=== PATIENT | male | born 1975 | race Caucasian/White ===

== ENCOUNTER 2019-08-13 01:03 | Inpatient (IN) | payer OTHER ==
[~2019-08-13] VITALS: Ht 180.3 cm; Wt 82.1 kg
[2019-08-13] VITALS (22 sets, daily range): BP systolic 83–104; BP diastolic 52–83
[2019-08-13] MEDS ORDERED: SODIUM CHLORIDE 0.9% 1000ML 1,000 ML IV SCH (01:15)
[2019-08-13] MEDS ORDERED: CEFEPIME 2 GM/NS 0.9% 100 ML 100 ML IV ONE (01:15)
[2019-08-13] MEDS ORDERED: ACETAMINOPHEN 650 MG SUPP PR ONE (01:15)
[2019-08-13 01:56] LABS: INR 1.2
[2019-08-13 01:57] LABS: PARTIAL THROMBOPLASTIN TIME 32.7 seconds (23.8-35.5)
[2019-08-13] MEDS ORDERED: AZITHROMYCIN 500MG/NS 250 ML 250 ML IV STA (02:01)
[2019-08-13] MEDS ORDERED: VANCOMYCIN 1GM/NS 250 ML 250 ML IV STA (02:01)
[2019-08-13 02:07] LABS: ALANINE AMINOTRANSFERASE 29 IU/L (0-55); ALBUMIN 3.4 g/dL (3.5-5.0); ALBUMIN/GLOBULIN RATIO 0.6 (0.8-2.0); ALKALINE PHOSPHATASE 161 IU/L (40-150); ANION GAP 16.3 mmol/L (8-16); BLOOD UREA NITROGEN 22 mg/dL (7-26); BUN/CREATININE RATIO 23 (6-25); CALCIUM 9.5 mg/dL (8.4-10.2); CARBON DIOXIDE 25 mmol/L (22-29); CHLORIDE 107 mmol/L (98-107); CREATINE KINASE 62 IU/L (30-200); CREATININE, SERUM 0.94 mg/dL (0.72-1.25); EST GLOMERULAR FILTRATION RATE > 60 ML/MIN (60-); GLUCOSE 248 mg/dL (74-118); POTASSIUM 4.3 mmol/L (3.5-5.1); SODIUM 144 mmol/L (136-145)
[2019-08-13 02:08] LABS: ABG HCO3 25 mmol/L (23-28); ABG PCO2 32 mmHg (35-45); ABG PH 7.49 (7.31-7.41)
[2019-08-13 02:10] LABS: BASOPHILS # (AUTO) 0.1 (0.0-0.1); BASOPHILS % 0.6 % (0.0-1.0); HEMOGLOBIN 16.3 g/dL (14.0-18.0); LYMPHOCYTES # (AUTO) 1.6 (1.0-3.2); MEAN CORPUSCULAR HEMOGLOBIN 29.6 pg (28-32); MEAN CORPUSCULAR HGB CONC 32.6 g/dL (31-35); MEAN CORPUSCULAR VOLUME 90.9 fL (81-99); MONOCYTES # (AUTO) 1.2 (0.2-0.8); MONOCYTES % 12.4 % (4.4-11.3); NEUTROPHILS # (AUTO) 6.6 (2.1-6.9); NEUTROPHILS % 69.8 % (38.7-80.0); PLATELET COUNT 180 x10e3/uL (140-360); RED CELL DISTRIBUTION WIDTH 13.1 % (11.7-14.4)
[2019-08-13] MEDS ORDERED: SODIUM CHLORIDE 0.9% 1000ML 1,000 ML IV ONE ×2 (02:15→05:30)
[2019-08-13 02:26] LABS: CREATINE KINASE MB < 1.00 ng/mL (0-4.3)
[2019-08-13] MEDS ORDERED: IBUPROFEN 100 MG/5 ML SUSP PEG ONE (03:00)
[2019-08-13 03:10] LABS: INFLUENZAE A&B ANTIGEN (RAPID) NEGATIVE (NEGATIVE); STREPTOCOCCUS GRP A ANTIGEN NEGATIVE (NEGATIVE)
--- NOTE | 2019-08-13 03:20 | Diagnostic Imaging Report ---
EXAMINATION: CHEST SINGLE (PORTABLE) COMPARISON: None INDICATION: Fever ^fever ^[id number] ^0248 ^Y DISCUSSION: Frontal view of the chest obtained at 0248 hours. HEART AND MEDIASTINUM: The cardiomediastinal silhouette is unremarkable. LINES: Tracheostomy is midline LUNGS: Moderate eventration of the right diaphragm with overlying atelectasis. No pneumonia or pulmonary edema. PLEURA: No pleural effusion or pneumothorax. BONES AND SOFT TISSUES: No focal osseous lesion. The soft tissues are normal. IMPRESSION: No infiltrates. Moderate eventration of the right diaphragm. Signed by: Dr. Nahum Alejo MD on 08/13/2019 3:17 AM
--- NOTE | 2019-08-13 03:23 | NUR ---
intermediate nurse reported to this facility 650 mg tylenol via peg tube were given before transfer. This nurse spent 38 minutes attempting to fix clogged peg tube. peg tube now working successfully. upon fix of peg tube-old tube feeding formula was removed in chunks.
[2019-08-13 03:39] LABS: CLARITY,URINE HAZY (CLEAR); COLOR,URINE AMBER (YELLOW); LEUKOCYTE ESTERASE ,URINE NEGATIVE (NEGATIVE); NITRITE,URINE NEGATIVE (NEGATIVE)
[2019-08-13 03:40] LABS: BACTERIA,URINE FEW /HPF; BILIRUBIN,URINE NEGATIVE (NEGATIVE); EPITHELIAL CELLS,URINE FEW /LPF; KETONES,URINE NEGATIVE (NEGATIVE); PROTEIN,URINE DIPSTICK 2+ (NEGATIVE); URINE UROBILINOGEN 1 mg/dL (0.2 - 1); WBC,URINE (MAN) 0-5 /HPF (0-5)
--- NOTE | 2019-08-13 05:07 | Diagnostic Imaging Report ---
CT chest without enhancement CPT code: 05548 INDICATION: Fever, atelectasis TECHNIQUE: Thin collimation axial images obtained from the thoracic inlet to the level of the diaphragm without intravenous contrast. Dose reduction techniques used: Automated exposure control, adjustment of the mAs and/or kVp according to patient size, standardized low-dose protocol, and/or iterative reconstruction technique. RADIATION DOSE: Total DLP: 536.05 mGy*cm Estimated effective dose: (DLP x 0.015 x size factor) mSv CTDIvol has been reviewed. It is below the limits set by the Radiation Protocol Committee (RPC). COMPARISON: Chest x-ray 08/13/2019. CHEST FINDINGS: Lymph nodes: No enlarged axillary, supraclavicular lymph nodes. Mediastinal lymph nodes are increased in number but measure up to 10 mm. No evidence of enlarged hilar lymph nodes given the lack of intravenous contrast. Thyroid: Visualized portions are normal. Mediastinum: Tracheostomy is in appropriate position. The heart is normal in size. No pericardial effusion. The ascending aorta measures 3.5 cm. The main pulmonary artery measures 2.6 cm. The distal esophagus is distended with air without significant mural thickening. No hiatal hernia. Lungs: Right: Near complete atelectasis of the lower lobe and atelectasis of the lateral segment of the middle lobe with bronchiectasis. The upper lobe contains several groundglass nodular foci. Left: Wispy bands of atelectasis in the inferior lower lobe. No nodules or infiltrates. Airways: Clear. Pleura: No pleural effusion or pleural based mass. Moderate eventration of the right diaphragm. ABDOMEN FINDINGS: Percutaneous gastrostomy is in appropriate position. There are subcentimeter calculi in the upper pole the right kidney. No soft tissue mass or lymphadenopathy. Bones: Compression fractures of L1 and T7 of approximately 50%. Mild superior endplate compression of T5. The spinal canal is patent. There are multiple healed left rib fractures. Soft tissues: Unremarkable. IMPRESSION: 1. Tiny groundglass nodular opacities in the right upper lobe may represent bronchopneumonia. 2. Moderate eventration of the right diaphragm with atelectasis of the right middle lobe and lower lobe. 3. Small foci of atelectasis in the left lower lobe. 4. Appropriate position of medical devices. 5. Tiny nonobstructing right intrarenal calculi. Signed by: Dr. Nahum Alejo MD on 08/13/2019 5:04 AM
[2019-08-13] MEDS ORDERED: DEXTROSE 50% SYRINGE 50 ML IV PRN (05:30)
[2019-08-13] MEDS ORDERED: SENNA LAXATIVE8.6 MG PEG (05:36)
[2019-08-13] MEDS ORDERED: SCOPOLAMINE1 EACH TOP (05:36)
[2019-08-13] MEDS ORDERED: MULTIPLE VITAM1 EAC1 PEG (05:36)
[2019-08-13] MEDS ORDERED: POLYETHYLENE GL17 GM PO (05:36)
[2019-08-13] MEDS ORDERED: B-1100 M1 PEG (05:36)
[2019-08-13] MEDS ORDERED: XOPENEX0.63 MG/3 INH (05:36)
[2019-08-13] MEDS ORDERED: ACETAMINOPHEN325 M1 PO (05:36)
[2019-08-13] MEDS ORDERED: ALBUTEROL2.5 MG/3 M INH (05:40)
[2019-08-13] MEDS ORDERED: CLONAZEPAM1 MG PEG (05:44)
[2019-08-13] MEDS ORDERED: DEBROX15 ML EACH EAR (05:44)
[2019-08-13] MEDS ORDERED: BACLOFEN10 MG PO (05:44)
[2019-08-13] MEDS ORDERED: EFFER-K 20 MEQ20 MEQ PEG (05:47)
[2019-08-13] MEDS ORDERED: FOLIC ACID0.8 M1 PEG (05:47)
[2019-08-13] MEDS ORDERED: KEPPRA PEG (05:55)
[2019-08-13] MEDS ORDERED: albuterol sulfate INH (05:55)
[2019-08-13] MEDS ORDERED: NIZORAL A-D125 M1 TOP (05:55)
[2019-08-13] MEDS ORDERED: CEFEPIME HCL 2 GM/SOD CHL 0.9% 100 ML BAG IV SCH ×2 (06:00→09:30)
[2019-08-13] MEDS: ACETAMINOPHEN 650 MG SUPP PR PRN (06:15)
[2019-08-13] MEDS: CLONAZEPAM 1 MG TAB PEG SCH ×3 (06:31→21:29)
[2019-08-13 07:29] LABS: CREATINE KINASE MB 0.6 ng/mL (0-5.0)
[2019-08-13] MEDS: INSULIN REGULAR, HUMAN 100 UNIT/1 ML 3ML VIAL SQ SCH ×4 (07:30→20:21)
[2019-08-13] MEDS: AZITHROMYCIN 500MG/SOD CHL 0.9% 250ML BAG IV SCH (08:26)
[2019-08-13] MEDS: LEVETIRACETAM ORAL SOLUTION 500 MG/5 ML SOLN PEG SCH ×2 (08:26→16:57)
[2019-08-13] MEDS ORDERED: KEPPRA 1000 MG PEG SCH (09:00)
[2019-08-13] MEDS: CEFEPIME 2 GM/NS 0.9% 100 ML 100 ML IV SCH ×3 (10:40→21:29)
[2019-08-13] MEDS ORDERED: ALBUTEROL SULFATE HFA 8GM INHALATION AEROSOL INH PRN (10:45)
--- NOTE | 2019-08-13 11:15 | Consultation ---
DATE OF CONSULTATION: Pulmonary Consultation HISTORY OF PRESENT ILLNESS: Patient of Dr. Bob Bethea. [facility]. Unfortunate 44-year-old gentleman with a history of diabetes mellitus, history of failed suicide attempt with anoxic encephalopathy, persistent vegetative state; admitted from [facility] with fever and elevated heart rate. He has a trach and a PEG. Heel wounds. Apparently, have a persistent vegetative state, but is somewhat reactive. He has contractures of the lower extremities and heel wounds. Diminished breath sounds, right chest. Heart regular rhythm. A tracheostomy is in place. He is able to squeeze his hand, but is in a decorticate posture. Contracted legs. IMPRESSION: 1. Possible COVID-19. 2. Elevated right hemidiaphragm, presumably related to nerve damage secondary to standing attempt. MD KAYLI Carrasco/MODL /[id number]
--- NOTE | 2019-08-13 11:15 | Consultation ---
DATE OF CONSULTATION: CONTINUATION: The patient's temperature on admission was 106.9. He received a dose of ibuprofen in the emergency department, was now fallen to 100.5. IMPRESSION: Probable COVID-19 infection. Bacterial cultures are pending. Viral PCR studies are pending. Hemoglobin is 16, 17% lymphocytes, 12.5% monocytes. Antibacterial agents have been started by Infectious Disease Service. The patient has a full code status. We will continue supplemental oxygen via trach mask. Attempt to avoid aerosolization. Mucomyst and bag and suction as needed. HME filter available, isolation room as needed. MD KAYLI Carrasco/MODL /[id number]
[2019-08-13] MEDS ORDERED: LEVALBUTEROL HCL SOLN NEBU 0.63 MG/3 ML NEB INH PRN (12:00)
[2019-08-13] MEDS ORDERED: ACETAMINOPHEN 325 MG TAB PO PRN (12:00)
[2019-08-13] MEDS ORDERED: SCOPOLAMINE 1.5 MG PATCH TOP SCH (12:00)
[2019-08-13] MEDS ORDERED: SODIUM CHLORIDE 0.9% 1000ML 1,000 ML ONE (12:43)
[2019-08-13] MEDS ORDERED: ACETYLCYSTEINE 200 MG/ML 4ML VIAL INH PRN (13:00)
[2019-08-13] MEDS ORDERED: ACETYLCYSTEINE 200 MG/ML 4ML VIAL INH SCH (13:00)
[2019-08-13] MEDS ORDERED: SODIUM CHLORIDE 0.9% 1000ML 1,000 ML IV PRN (13:00)
[2019-08-13] MEDS ORDERED: KETOCONAZOLE 2% CREAM/15 GM TUBE TOP SCH (13:30)
[2019-08-13] MEDS ORDERED: BACLOFEN 10 MG TAB PO SCH (14:00)
[2019-08-13] MEDS ORDERED: ALBUTEROL SULF 0.083% NEB SOLN 3 ML NEB INH SCH (15:00)
[2019-08-13] MEDS: ALBUTEROL SULFATE HFA 8GM INHALATION AEROSOL INH SCH ×2 (15:00→20:30)
[2019-08-13] MEDS ORDERED: ALBUTEROL SULF 0.083% NEB SOLN 3 ML NEB NEB PRN (15:00)
--- NOTE | 2019-08-13 15:31 | NUR ---
Nutrition Intervention Note RD Recommendation(s) for Physician: -Rec changing continuous TF to Glucerna 1.5 @55mL/hr, providing 1980kcal, 109g protein, 1002mL water. -Rec 50mL water flushes q 4hr; additional water per MD -Check GI tolerance and daily weight Plan of Care: RD following, monitoring for tolerance and adequacy, TF recommendation Nutrition reason for involvement: RN consult TF RD Assessment (08/12) Chart reviewed. 44yo M, who was [facility] for fever and elevated heart rate. Pt has a trach and PEG, in persistent vegetative state. Pt has contractures of the lower extremities and heel wounds. No family on bedside. Currently on droplet isolation for possible COVID-19. No family is present. No previous visit to [facility]. Communicated TF recommendation with HUNTER Pots. Will continue to monitor and follow. Principal Problems/Diagnoses: Possible COVID-19 PMH: diabetes mellitus, history of failed suicide attempt with anoxic encephalopathy, persistent vegetative state I/O: N/A IVF: NaCl GI: +PEG Skin: intact Labs: (08/12) unremarkable Meds: cefepime, azithromycin, NaCl, ibuprofen, vancomycin, NaCl Ht: 71in Wt: 180lb BMI: 25.1kg/m2 IBW: 172lb +/- 10% Malnutrition Evaluation (08/12) Unable to assess at this time Nutrition Prescription (Diet Order): Vital HP @60ml/hr Estimated Nutritional Needs: Calories: 1640 2050kcal(20-25kcal/kg/d) Weight used: CBW Protein: 82 123g (1-1.5g/kg/d) Weight used: CBW Diet Adequacy: Not meeting calorie needs, Not meeting protein needs Tolerance: Tolerance pending Diet Education Needs Assessment: Diet education not indicated. Nutrition Care Level: Moderate Nutrition Diagnosis: Inadequate oral intake related to persistent vegetative state as evidenced by pt required EN through PEG. Goal: Patient will meet 75-100% of estimated needs by follow up Progress: N/A Interventions: Composition, Rate, Route Monitoring/Evaluation: Total energy intake, Total protein intake, Formula/Solution, Weight change Signed: Ioana Shelby, MS, RD, LD
--- NOTE | 2019-08-13 16:06 | History and Physical ---
HISTORY OF PRESENT ILLNESS: A 44-year-old male, who had a past medical history positive for anoxic brain injury, chronically on the ventilator, came from the [facility] because of fever. He also has a history of diabetes. He is a possible patient suspicion to have COVID-19. The patient is right now in the ICU, cannot provide any information because he is on the vent. PHYSICAL EXAMINATION: HEART: Showed regular rhythm. Normal S1, S2 sound. LUNGS: Clear bilaterally. ABDOMEN: Soft. EXTREMITIES: Show contraction upper and lower extremities. VITAL SIGNS: Temperature 99.9, heart rate 78 per minute, respiratory rate 20 per minute, and blood pressure 84/58. PAST MEDICAL HISTORY: Significant for chronic respiratory failure, acute at this stage, and encephalopathy after suicide attempt. LABORATORY DATA: On the blood work, we have CMP; sodium 144, potassium 4.3, chloride 107, CO2 of 25, BUN 22, creatinine 0.94, glucose 248, lactic acid is 1.0 right now. AST 25, ALT 29, alkaline phosphatase 161. Creatine kinase 62. Troponin 0.05. Total protein 9.0, albumin 3.4, globulin 5.6. Urinalysis came back clear, except for high protein. PT 16.0, INR 1.0, PTT 32.7. The coronavirus, metapneumovirus PCR, Mycoplasma pneumoniae, parainfluenza 1, 2, 3, 4, RSV, rhinovirus, and group B Streptococcus screen has been done, reviewed but his Streptococcus has been negative. Chest CT showed that the patient has a tiny ground-glass nodular opacities in the right upper lobe, may represent bronchopneumonia, moderate eventration, right hemidiaphragm with atelectasis in the right middle lobe and lower lobe, small focus of atelectasis in left lower lobe appropriate position renal calculi. IMPRESSION: 1. Chronic respiratory failure. 2. Fever. 3. Lower pneumonia. 4. Uncontrolled diabetes mellitus type 2. 5. Anoxic encephalopathy. 6. Hypotension. 7. COVID-19 suspicious. Came in with IV normal saline bolus because of hypotension. Continue ventilator support. Continue cefepime 2 g IV q.8 hours. Continue IV fluids. Continue vancomycin 1 g IV once a day. Continue Tylenol 650 mg q.4 hours as needed for pain or fever. Continue with Mucomyst 600 mg inhalation q.6 hours as needed for shortness of breath. Albuterol metered-dose inhaler two puffs three times a day and q.6 hours. Continue baclofen 10 mg q.8 hours, which we are going to stop actually because of hypotension, clonazepam 1 mg q.8 hours as needed, folic acid 1 mg daily, heparin 5000 units subcutaneous twice a day for DVT prophylaxis. Continue monitoring blood sugar before meals and at bedtime. Continue Xopenex q.8 hours as needed for shortness of breath. Continue Keppra 1000 mg twice a day . The patient is going to discontinue Senokot one tablet daily, thiamine one tablet daily, vancomycin 1 g IV once a day, Zithromax 500 mg IV daily, minoxidil one application topically on Thursday, discussed with the nurse. Consultation reports have been reviewed. Labs have been reviewed. Chest x-ray has been reviewed. Time spent around 50 minutes. MD MYRON Gonzales/ROB /[id number]
--- NOTE | 2019-08-13 18:41 | Consultation ---
DATE OF CONSULTATION: REASON FOR CONSULTATION: Pneumonia. HISTORY OF PRESENT ILLNESS: This is a 44-year-old gentleman who is coming to us from the [facility] skilled care facility. The patient who is a resident have history of diabetes mellitus, history of suicide attempt, resulted in failing, but had anoxic encephalopathy. He is in a vegetative state, status post PEG, status post trach. [facility], but he is presenting to us with fever and chills and concern if he aspirated, but since we are in the mid of outbreak for COVID-19, this was sent also. The patient who does not provide any further information, history was taken mainly from the chart. His influenza A and B was negative. Strep was negative, thus was available for us right now. His blood cultures still pending. LABORATORY DATA: Reviewed. His chest x-ray reviewed. His white count 9.4, hemoglobin 5, platelet 180. His sodium 144, potassium 4.3, creatinine 0.94. The patient when I see the consult, we will put him on vancomycin and cefepime, but he was also started on azithromycin. REVIEW OF SYSTEMS: Could not be obtained. PHYSICAL EXAMINATION: GENERAL: The patient is noncommunicative. VITAL SIGNS: Stable. Temperature 100.4. When he first came, had a temperature 106.9. HEENT: Normocephalic. CHEST: Few rhonchi. COR: S1 and S2. No S3, S4, or murmur. ABDOMEN: Soft. Bowel sounds present. No tenderness. EXTREMITIES: No edema. IMPRESSION: I think the patient have aspiration pneumonia, sepsis, present on admission. I would recommend to continue vancomycin and cefepime for aspiration pneumonia, healthcare associated. Follow vancomycin trough. Check CBC, Chem panel. COVID-19 was ordered. Unfortunately it is taking us 48-72 hours to get results, sometimes with longer. Discussed with the medical team. Answered all the questions. We will follow. MD DAVID Mike/ROB /[id number]
[2019-08-13] MEDS: HEPARIN SOD (PORCINE) 5,000 UNIT/ML VIAL SC SCH (20:18)
[2019-08-13] MEDS: FOLIC ACID 1 MG TAB PEG SCH (20:18)
[2019-08-14] VITALS (25 sets, daily range): BP systolic 83–128; BP diastolic 50–95
[2019-08-14] MEDS: VANCOMYCIN 1GM/NS 250 ML 250 ML IV SCH (01:37)
[2019-08-14] MEDS ORDERED: VANCOMYCIN HCL 1GM/NS 250 ML BAG IV SCH (02:00)
[2019-08-14 05:21] LABS: BASOPHILS % 0.3 % (0.0-1.0); EOSINOPHILS # (AUTO) 0.1 (0.0-0.4); EOSINOPHILS % 0.7 % (0.0-6.0); HEMATOCRIT 31.1 % (38.2-49.6); HEMOGLOBIN 9.5 g/dL (14.0-18.0); LYMPHOCYTES # (AUTO) 1.3 (1.0-3.2); LYMPHOCYTES % 18.7 % (18.0-39.1); MEAN CORPUSCULAR HEMOGLOBIN 29.1 pg (28-32); MEAN CORPUSCULAR HGB CONC 30.5 g/dL (31-35); MEAN CORPUSCULAR VOLUME 95.4 fL (81-99); MONOCYTES # (AUTO) 0.5 (0.2-0.8); MONOCYTES % 6.7 % (4.4-11.3); NEUTROPHILS # (AUTO) 5.1 (2.1-6.9); NEUTROPHILS % 73.3 % (38.7-80.0); PLATELET COUNT 92 x10e3/uL (140-360); RED BLOOD COUNT 3.26 x10e6/uL (4.3-5.7); RED CELL DISTRIBUTION WIDTH 13.2 % (11.7-14.4)
[2019-08-14] MEDS: CEFEPIME 2 GM/NS 0.9% 100 ML 100 ML IV SCH ×3 (05:21→21:22)
[2019-08-14] MEDS: CLONAZEPAM 1 MG TAB PEG SCH ×3 (05:21→21:22)
[2019-08-14 05:35] LABS: INR 1.19; PROTHROMBIN TIME 15.9 seconds (11.9-14.5)
[2019-08-14 05:42] LABS: ALANINE AMINOTRANSFERASE 17 IU/L (0-55); ALBUMIN 2.5 g/dL (3.5-5.0); ALBUMIN/GLOBULIN RATIO 0.7 (0.8-2.0); ALKALINE PHOSPHATASE 108 IU/L (40-150); ANION GAP 8.5 mmol/L (8-16); BLOOD UREA NITROGEN 18 mg/dL (7-26); BUN/CREATININE RATIO 34 (6-25); CALCIUM 8.5 mg/dL (8.4-10.2); CARBON DIOXIDE 27 mmol/L (22-29); CHLORIDE 115 mmol/L (98-107); CREATININE, SERUM 0.53 mg/dL (0.72-1.25); EST GLOMERULAR FILTRATION RATE > 60 ML/MIN (60-); GLUCOSE 101 mg/dL (74-118); POTASSIUM 3.5 mmol/L (3.5-5.1); SODIUM 147 mmol/L (136-145)
[2019-08-14] MEDS: INSULIN REGULAR, HUMAN 100 UNIT/1 ML 3ML VIAL SQ SCH ×4 (07:12→21:00)
[2019-08-14] MEDS: ALBUTEROL SULFATE HFA 8GM INHALATION AEROSOL INH SCH ×3 (09:10→20:05)
[2019-08-14] MEDS: LEVETIRACETAM ORAL SOLUTION 500 MG/5 ML SOLN PEG SCH ×2 (09:43→16:22)
[2019-08-14] MEDS: MULTIVITAMINS 5 ML LIQUID PEG SCH (09:43)
[2019-08-14] MEDS: POLYETHYLENE GLYCOL 3350 17 GM PACK PO SCH (09:44)
[2019-08-14] MEDS: SENNOSIDES 8.6 MG TAB PEG SCH (09:44)
[2019-08-14] MEDS: AZITHROMYCIN 500MG/SOD CHL 0.9% 250ML BAG IV SCH (09:44)
[2019-08-14] MEDS: THIAMINE HCL 100 MG TAB PEG SCH (09:44)
[2019-08-14] MEDS: HEPARIN SOD (PORCINE) 5,000 UNIT/ML VIAL SC SCH ×2 (09:47→21:15)
--- NOTE | 2019-08-14 10:37 | Diagnostic Imaging Report ---
EXAMINATION: CHEST SINGLE (PORTABLE) INDICATION: ^FEVER ^[id number] ^0930 COMPARISON: Chest x-ray and CT dated 08/13/2019 FINDINGS: AP view TUBES and LINES: None. LUNGS: Limited by body habitus and low lung volumes. Mild vascular congestion, accentuated by low lung volumes. Mild right lower lung field atelectasis. PLEURA: No significant pleural effusion or pneumothorax. HEART AND MEDIASTINUM: The cardiomediastinal silhouette is unremarkable. BONES AND SOFT TISSUES: No acute osseous lesion. Again seen elevated right hemidiaphragm. UPPER ABDOMEN: No free air under the diaphragm. IMPRESSION: Limited study. No significant interval change from prior exam. Elevated right hemidiaphragm with mild adjacent atelectasis. Underlying/developing pneumonia cannot be entirely excluded in the appropriate clinical context. Signed by: Dr. Chavo Cat MD on 08/14/2019 10:34 AM
--- NOTE | 2019-08-14 14:09 | Progress Note ---
DATE: Internal Medicine Progress Note SUBJECTIVE: The patient is on the ventilator. OBJECTIVE: VITAL SIGNS: Temperature 99.3, heart rate 86 per minute, respiratory rate 20 per minute, blood pressure 103/68, and oxygen saturation is 97%. He is using trach collar. LABORATORY DATA: On the blood work, we have a hemoglobin 9.1, hematocrit 31.1, and platelet count 92,000. On the BMP; sodium 147, potassium 3.5, chloride 115, carbon dioxide 27, BUN 18, creatinine 0.53, glucose is 101, calcium 8.5, total bilirubin 0.5, AST 18, ALT 17, alkaline phosphatase 108, creatine kinase 64, CK-MB 0.60, troponin 0.018, total protein 5.9, and albumin 2.5. Urinalysis pretty much negative except for some protein. Coagulation came back with PT 15.9 and INR 1.19. All the valid serology has been done. COVID-19 still pending. Influenza A and B negative and group A Streptococcus screen is negative also. On the microbiology part, blood cultures have been negative for 24 hours. Throat cultures came back with usual respiratory efra. Urine culture also has been done and it showed no growth for 18-24 hours. We have a chest CT report, which showed tiny ground-glass noted opacity in the right upper lobe might represent bronchopneumonia, moderate eventration in the right hemidiaphragm with atelectasis of the right middle lobe and lower lobe, small focus of atelectasis in the left lower lobe, appropriate position of the medical devices, and tiny nonobstructing right intrarenal calculi. FINAL IMPRESSION: 1. Current respiratory failure. 2. Lower pneumonia. 3. Uncontrolled diabetes mellitus type 2. 4. Anoxic encephalopathy. 5. Fever. 6. Possible COVID-19 patient. 7. Hypotension. PLAN OF TREATMENT: We are going to continue currently oxygen support. Continue cefepime 2 g IV every 8 hours. Continue with vancomycin 1 g IV once a day and Tylenol 650 mg every 4 hours as needed for pain or fever. He is taking also acetylcysteine 600 mg inhalation every 6 hours p.r.n. for shortness of breath. Albuterol two puffs every 8 hours. Continue with clonazepam 1 mg every 8 hours by the PEG tube. Continue folic acid 1 mg daily. Continue heparin 5000 units subcutaneously twice a day for DVT prophylaxis. Continue monitoring blood sugar every 6 hours. Continue Nizoral one application on Thursday. Keppra 1000 mg by the PEG tube twice a day. Multivitamin one tablet daily. Continue MiraLAX 17 g daily for constipation, Senokot daily, thiamine 100 mg daily, vancomycin 1 g IV once a day, and Zithromax 500 mg IV daily. [employer] reports have been reviewed. As I said, we are going to wait for COVID-19 to see if the patient has it, but in the meantime, he is in Respiratory and contact isolation. MD MYRON Gonzales/ROB /[id number]
--- NOTE | 2019-08-14 17:45 | Progress Note ---
DATE: SUBJECTIVE: Mr. Arias still remains in intensive care unit. Noncommunicative. PHYSICAL EXAMINATION: VITAL SIGNS: His vitals are stable. HEENT: Not icteric. NECK: Supple. CHEST: Few crackles. Coarse. ABDOMEN: Soft. Bowel sounds present. EXTREMITIES: No edema. IMPRESSION: 1. Aspiration pneumonia, clinically better. Concern about COVID-19 since we are in the middle of the outbreak. 2. Chronic respiratory failure, skilled care facility resident. 3. Diabetes mellitus. 4. Anoxic encephalopathy. 5. Hypertension. Currently on cefepime and vancomycin, day #2. All cultures are still pending. White count is 7. Influenza is negative. Continue with supportive care for time being. We will follow. MD DAVID Mike/MODL /[id number]
[2019-08-14] MEDS: FOLIC ACID 1 MG TAB PEG SCH (21:14)
[2019-08-15] VITALS (15 sets, daily range): BP systolic 107–133; BP diastolic 63–84
[2019-08-15] MEDS: ACETAMINOPHEN 650 MG SUPP PR PRN (00:35)
[2019-08-15] MEDS: VANCOMYCIN 1GM/NS 250 ML 250 ML IV SCH (01:43)
[2019-08-15] MEDS ORDERED: SODIUM CHLORIDE 0.9% 250ML 250 ML ONE (02:18)
[2019-08-15 05:36] LABS: ANION GAP 12.3 mmol/L (8-16); BLOOD UREA NITROGEN 11 mg/dL (7-26); BUN/CREATININE RATIO 20 (6-25); CALCIUM 8.5 mg/dL (8.4-10.2); CARBON DIOXIDE 26 mmol/L (22-29); CHLORIDE 110 mmol/L (98-107); CREATININE, SERUM 0.54 mg/dL (0.72-1.25); EST GLOMERULAR FILTRATION RATE > 60 ML/MIN (60-); GLUCOSE 88 mg/dL (74-118); POTASSIUM 3.3 mmol/L (3.5-5.1); SODIUM 145 mmol/L (136-145)
[2019-08-15] MEDS: CLONAZEPAM 1 MG TAB PEG SCH (05:44)
[2019-08-15] MEDS: CEFEPIME 2 GM/NS 0.9% 100 ML 100 ML IV SCH ×2 (05:44→14:00)
[2019-08-15] MEDS ORDERED: POTASSIUM CHLORIDE 20MEQ/15ML UDC NG SCH (06:45)
[2019-08-15] MEDS: INSULIN REGULAR, HUMAN 100 UNIT/1 ML 3ML VIAL SQ SCH ×2 (07:30→11:30)
[2019-08-15] MEDS: ALBUTEROL SULFATE HFA 8GM INHALATION AEROSOL INH SCH (08:00)
[2019-08-15] MEDS: HEPARIN SOD (PORCINE) 5,000 UNIT/ML VIAL SC SCH (08:35)
[2019-08-15] MEDS: LEVETIRACETAM ORAL SOLUTION 500 MG/5 ML SOLN PEG SCH (08:36)
[2019-08-15] MEDS: AZITHROMYCIN 500MG/SOD CHL 0.9% 250ML BAG IV SCH (08:36)
[2019-08-15] MEDS: POLYETHYLENE GLYCOL 3350 17 GM PACK PO SCH (08:37)
[2019-08-15] MEDS: SENNOSIDES 8.6 MG TAB PEG SCH (08:37)
[2019-08-15] MEDS: MULTIVITAMINS 5 ML LIQUID PEG SCH (08:37)
[2019-08-15] MEDS: THIAMINE HCL 100 MG TAB PEG SCH (08:37)
--- NOTE | 2019-08-15 11:23 | NUR ---
FAXED CLINIC[facility] TO [facility], PT LIVES THERE SHOULD RETURN TODAY, COMPLETED PACKET WITH RTF AND COVID ASSESSMENT, PUT IN ENVELOPE FOR TRANSFER COMPLETION.
--- NOTE | 2019-08-15 11:30 | NUR ---
HALFWAY FACILITY DISCHARGE INFORMATION PATIENT HAS BEEN ACCEPTED TO: NAME: [facility] ADDRESS: [id number] [facility] ACCEPTING RUFFLER: MICHAEL HOFFMANN MD: MALLORY ROOM: [address] NURSE CALL REPORT TO: [phone] IMM SIGNED AND OBTAINED (if applicable): NA THE FOLLOWING DOCUMENTS MUST ACCOMPANY PATIENT FOR TRANSFER: COPIED CHART: PACKET
--- NOTE | 2019-08-15 12:42 | NUR ---
WOUND CARE CONSULT FOR 44 YO MALE HX OF PNEAU ,HEAD TRAMA , CONTRACTURES OF BILATERAL LE RYNE 9 ON STRICT PUP STATUS AND INTERVENTIONS AND ALTERNATING PRESSURE MATTRESS LABS: WBC-7.01 HGB_9.5 GLUCOSE-88 SKIN ASSESSMENT COMPLETE PATIENT PRESENTS WITH BILATERAL HEEL DTI AREAS RELATED TO LEG CONTRACTURES AND PRESSURE CREATED RIGHT HEEL DTI MEASURES 3CM X3CM DARK BLUISH COLOR AND BLISTER LEFT HEEL DTI MEASURES 3CM X3.5CM DARK BLUISH BLISTER RECOMMENDATIONS: NURSING TO CONTINUE TO MAINTAIN STRICT PUP STATUS AND INTERVENTIONS AND ALTERNATING PRESSURE MATTRESS NURSING TO CONTINUE TO ASSIST PATIENT NEEDED WITH MEALS AND NUTRITIONAL SUPPLEMENTS TO ENSURE PROPER REQUIREMENTS FOR HEALING NURSING TO CONTINUE TO OFFLOAD FEET AND HEELS NEEDED WITH PILLOW SUSPENSION WHEN IN BED NURSING TO CLEAN BILATERAL HEELS DTI BLISTER WITH NORMAL SALINE DAILY AND APPLY VENELEX OINTMENT AND ALLEVYN FOAM DRESSING Addendum: 08/15/19 at 1252 by Robert Garnett RN Amended: Links added.
--- NOTE | 2019-08-15 14:00 | NUR ---
FEMORAL AND 20G TO LFA DCD AT THIS TIME. PT TOLERATED WELL
[2019-08-16] MEDS ORDERED: BALSAM PERU/CASTOR OIL 60 GM OINT...G. TP SCH (09:00)
--- NOTE | 2019-08-16 09:45 | Progress Note ---
DATE: SUBJECTIVE: Mr. Arias clinically seems to be doing better. He is alert, noncommunicative. OBJECTIVE: VITAL SIGNS: Stable, currently afebrile. HEENT: Not icteric. NECK: Supple. CHEST: Few crackles. COR: S1, S2. ABDOMEN: Soft. IMPRESSION: Aspiration pneumonia clinically better, COVID-19 came back negative. From Infectious Disease point of view, the patient could be discharged back to skilled care facility since he has chronic vent to finish 5 days of antibiotic. MD DAVID Mike/DOROTHYL /[id number]
--- NOTE | 2019-09-20 00:52 | Discharge Summary ---
CHIEF COMPLAINT: Fever. FINAL DIAGNOSES: 1. Respiratory failure. 2. Right lower lobe atelectasis. 3. . DISPOSITION: Discharge back to the [facility]. HOSPITAL COURSE: A 44-year-old male with history for hypoxic brain injury, chronic vent, stayed at [facility]. He was brought to the ER due to fever. He is also known to have a history of diabetes. There is suspicious for evidence to be COVID-19. Regarding his fever with his vent status, the patient admitted to ICU for care and the concern for chronic respiratory failure, fever, lobar pneumonia, uncontrolled diabetes type 2, hypoxic encephalopathy, hypotension, COVID-19 suspicion. With admission, the patient was undergoing pulmonary evaluation by Dr. Albarran, regarding the need for continued vent management as well as suspicious possible COVID-19 and with his evaluation of the patient, his impression was possible COVID-19, elevated right hemidiaphragm, presumably related to nerve damage secondary to standing attempt. Infectious Disease follow up with Dr. Correia regarding pneumonia. With his evaluation, he feels that the patient have aspiration pneumonia, sepsis present on admission. Recommend continuation of current antibiotics. Awaiting for COVID-19 results. From the ER, the patient was in ICU for further continuation of vent support and was on tube feedings for nutrition. His daily medications were continuing. He is also being placed on cefepime as well as vancomycin. His vital signs are being monitored further. His lab studies were being monitored well. Had a COVID study, results are still pending. Care was continuing. Concerns are now being addressed for aspiration pneumonia. Vent support was continued. Respiratory care was continued. His COVID-19 did return back negative. The patient was stabilized and felt to be transferred back to the [facility] for continuation of care. IMAGING: Chest x-ray finding shows no infiltrate. Moderate eventration of the right hemidiaphragm. CT of chest shows tiny ground-glass nodular opacity of right upper lobe, may represent bronchopneumonia. Moderate eventration of the right diaphragm with atelectasis of the right middle lobe and lower lobe. Small foci of atelectasis in the left lower lobe. Tiny nonobstructing right intrarenal calculi. Final chest x-ray was a limited study. No significant interval change today to prior exam. Underlying/developing pneumonia cannot be entirely excluded in the appropriate clinical contest. Cultures; urine, throat, and blood all 3 negative. LABORATORY STUDIES: CBC was normal. White blood cell count initial H and H were 13.3 and 50.0. As the patient became better hydrated with the stay, followup H and H had trended down to, not only trended but it dropped to 9.5 and 31.1. Influenza A and B studies were negative. Drug screen was negative. Coronavirus studies were negative. Urinalysis was showing specific gravity 1.030, 2+ protein. Chemistry shows initial electrolyte studies to be normal. Kidney functions normal. Glucose 248. Followup chemistry shows electrolytes continuing to be stable. Kidney functions are stable. Final glucose 112, final potassium was 3.3. As mentioned, the patient was stabilized, with transfer back to the [facility] on vent before. The patient is bed-bound. Continue on G-tube feeding as well. Activity level, bed-bound. The patient will continue his medications. I will be following the patient's care at that location on a daily basis. Staff will be contacting me as needed. Dictated by BARBY Nolasco Bob Bethea MD CC/ROB /[id number]
== END 2019-08-15 14:30 | DRG 178 ==
LOC: ER 01:03 → ERHOLD 05:31 → ICU 06:41
DX: J69.0 Pneumonitis due to inhalation of food and vomit (principal); Z99.11 Dependence on respirator [ventilator] status; G93.1 Anoxic brain damage, not elsewhere classified; J96.10 Chronic respiratory failure, unspecified whether with hypoxia or hypercapnia; G93.40 Encephalopathy, unspecified; Z87.820 Personal history of traumatic brain injury; J98.6 Disorders of diaphragm; M62.462 Contracture of muscle, left lower leg; M62.461 Contracture of muscle, right lower leg; L89.626 Pressure-induced deep tissue damage of left heel; L89.616 Pressure-induced deep tissue damage of right heel; Z93.1 Gastrostomy status; I10 Essential (primary) hypertension; Z91.5 Personal history of self-harm
CPT/HCPCS: 36415; 36600; 51700; 71045; 71250; 80048; 80053; 81001; 82550; 82553; 82805; 82948; 83518; 83605; 84484; 85025; 85610; 85730; 87040; 87070; 87086; 87400; 87633; 87635; 93005; 94664; 99251; 99284; J0456; J1644; J1817; J3370; J3411; J7030; J7050

== ENCOUNTER 2019-10-13 08:46 | Emergency (ER) | payer MEDICARE, OTHER ==
[~2019-10-13] VITALS: Ht 180.3 cm; Wt 82.1 kg
[~2019-10-13 08:46] MED LIST: ACETAMINOPHEN325 M1 PO; ALBUTEROL2.5 MG/3 M INH; B-1100 M1 PEG; BACLOFEN10 MG PO; CLONAZEPAM1 MG PEG; DEBROX15 ML EACH EAR; EFFER-K 20 MEQ20 MEQ PEG; FOLIC ACID0.8 M1 PEG; KEPPRA PEG; MULTIPLE VITAM1 EAC1 PEG; NIZORAL A-D125 M1 TOP; POLYETHYLENE GL17 GM PO; SCOPOLAMINE1 EACH TOP; SENNA LAXATIVE8.6 MG PEG; XOPENEX0.63 MG/3 INH; albuterol sulfate INH
[2019-10-13] MEDS ORDERED: DIATRIZOATE MEGL/DIATRIZOA SOD 30 ML BTL PO ONE (09:36)
--- NOTE | 2019-10-13 09:36 | Emergency Department Note ---
History of Present Illnes History of Present Illness Chief Complaint: Abdominal Complaints History of Present Illness This is a 44 year old male arrived to the ER by EMS secondary to G- tube dislodgment. 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 Any updates have been documented here. 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 Physical Exam Related Data Allergies: Coded Allergies: No Known Drug Allergies (Verified Allergy, Unknown, 08/13/19) Triage Vital Signs Vital Signs Date Time Temp Pulse Resp B/P (MAP) Pulse Ox O2 Delivery O2 Flow Rate FiO2 10/13/19 08:47 97.5 78 18 156/81 95 Vital signs reviewed: Yes Physical Exam CONSTITUTIONAL Constitutional: other (contracted otherwise well-nourished male) HENT HENT: normocephalic HENT L/R: left TM normal, right TM normal EYES Eyes: PERRL, conjunctivae normal NECK PULMONARY Pulmonary: breath sounds normal CARDIOVASCULAR Cardiovascular: regular rhythm GASTROINTESTINAL Abdominal: soft, other (stoma noted, no superimposed cellulitis) GENITOURINARY SKIN Skin: dry MUSCULOSKELETAL Musculoskeletal: other (contracted bilateral upper and lower extremities); edema NEUROLOGICAL Neurological: other (spinous to painful stimuli, incomprehensible sounds noted) PSYCHOLOGICAL Critical Care Time Subsequent provider I assumed direction of critical care for this patient from another provider of my specialty. Assessment & Plan Reassessment Reassessment 44-year-old male by the ED with dislodged G-tube. G-tube replaced at bedside with 18 Azeri, confirmation noted with Gastrografin. Patient stable for t ransfer back to senior care. Assessment & Plan Final Impression: (1) UNSPECIFIED ABDOMINAL PAIN Assessment & Plan PEG tube replaced, confirmation noted, return back senior care Last Vital Signs Date Time Temp Pulse Resp B/P (MAP) Pulse Ox O2 Delivery O2 Flow Rate FiO2 10/13/19 08:47 97.5 78 18 156/81 95 Home Meds Reported Medications [albuterol sulfate] No Conflict Check, 0.083 % INH Q4H PRN for SHORTNESS OF BREATH albuterol sulfate 2.5mg/3ml 3 ml via trach q4h prn sob 08/13/19 Ketoconazole (Nizoral A-D) 125 Ml Shampoo, 1 APPFUL TOP .wed apply to scalp every thu for dandruff 08/13/19 [keppra solution] No Conflict Check, 1000 MG PEG BID 08/13/19 Folic Acid (Folic Acid) 0.8 Mg Capsule, 1 TAB PEG HS 08/13/19 Potassium Bicarbonate/Cit Ac (EFFER-K 20 MEQ TABLET EFF) 20 Meq Tablet.eff, 20 MEQ PEG mon,thu,thu08/13/19 Carbamide Peroxide (DEBROX) 15 Ml Drops, 5 DROP EACH EAR thu and thu08/13/19 Clonazepam (CLONAZEPAM) 1 Mg Tablet, 1 MG PEG Q8H, TAB 08/13/19 Baclofen (BACLOFEN) 10 Mg Tablet, 30 MG PO Q8H, #90 TAB hold for sbp <110 08/13/19 Albuterol Sulfate (ALBUTEROL SULFATE) 2.5 Mg/3 Ml Vial.neb, 3 ML INH Q8H 08/13/19 Levalbuterol Hcl (XOPENEX) 0.63 Mg/3 Ml Vial.neb, 1 INH INH Q8H PRN for SHORTNESS OF BREATH 08/13/19 Acetaminophen (ACETAMINOPHEN) 325 Mg Tablet, 650 MG PO Q4H PRN for ELEVATED TEMPERATURE for 5 Days, TAB 08/13/19 Thiamine HCl (B-1) 100 Mg Tablet, 100 MG PEG DAILY 08/13/19 Sennosides (SENNA LAXATIVE) 8.6 Mg Tablet, 1 TAB PEG DAILY 08/13/19 Scopolamine (Scopolamine) 1 Each Patch.td.3, 1 PATCH TOP Q72H 08/13/19 Polyethylene Glycol 3350 (POLYETHYLENE GLYCOL 3350) 17 Gm Powd.pack, 17 GM PO DAILY, PACKET 08/13/19 Multivitamin With Minerals (MULTIPLE VITAMIN) 1 Each Tablet, 1 TAB PEG DAILY 08/13/19 GISELA LAYNE, Oct 13, 2019 09:36
--- NOTE | 2019-10-13 10:52 | Diagnostic Imaging Report ---
EXAM: ABDOMEN-1VIEW (KUB) DATE: 10/13/2019 9:46 AM INDICATION: Gastrostomy replacement COMPARISON: None FINDINGS: Single AP view of the abdomen was obtained after the administration of Gastrografin via the indwelling gastrostomy catheter. A jewelry cutter image was not obtained. There is contrast opacification of the gastric folds and proximal small bowel. No extraluminal contrast material is identified. Bowel gas pattern appears nonobstructive. No abnormal intra-abdominal calcification is appreciated. No acute osseous abnormality identified. IMPRESSION: Intraluminal position of gastrostomy catheter with opacification of the stomach and proximal small bowel. Signed by: Dr. Bahman Houser MD on 10/13/2019 10:49 AM
[2019-10-13 11:06] VITALS: BP 114/85
== END 2019-10-13 11:48 ==
LOC: ER 08:48
DX: Z43.1 Encounter for attention to gastrostomy (principal); Z87.820 Personal history of traumatic brain injury; F41.9 Anxiety disorder, unspecified; F32.9 Major depressive disorder, single episode, unspecified; J44.9 Chronic obstructive pulmonary disease, unspecified; Z74.01 Bed confinement status
CPT/HCPCS: 74018; 99283

== ENCOUNTER 2019-12-02 11:40 | Emergency (ER) | payer MEDICARE, OTHER ==
[~2019-12-02] VITALS: Ht 167.6 cm; Wt 59.0 kg
--- NOTE | 2019-12-02 11:50 | NUR ---
Edmundo called to transfer pt to [facility]
--- NOTE | 2019-12-02 11:55 | NUR ---
Report to HUNTER Brink
[2019-12-02] MEDS ORDERED: SODIUM CHLORIDE FLUSH 10 ML SYR INJ PRN (12:00)
[2019-12-02] MEDS ORDERED: SODIUM CHLORIDE 0.9% 1000 ML BAG IV ONE (12:00)
--- NOTE | 2019-12-02 12:09 | Emergency Department Note ---
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 Any updates have been documented here. 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 HYPOKALEMIA PREV ETOH ABUSE ANXIETY APHONIA Other Surgery: TRACH, GTUBE Social History Alcohol Use: None (hx of alcohol abuse by history) TB Exposure/Symptoms: No Physically hurt or threatened: No Other Last Tetanus: UTD Review of Systems ROS Narrative Unable to obtain ROS: Unable to obtain due to, altered mental status Review of Systems Constitutional: Reports fever Respiratory: Reports cough Physical Exam Related Data Allergies: Coded Allergies: No Known Drug Allergies (Verified Allergy, Unknown, 08/13/19) Physical Exam CONSTITUTIONAL Constitutional: Present cachectic, Present diaphoretic HENT HENT: Present normocephalic, Present atraumatic EYES NECK Neck: Present ROM normal, Present supple PULMONARY Pulmonary: Present effort normal, Present rhonchi CARDIOVASCULAR Cardiovascular: Present regular rhythm, Present heart sounds normal, Present intact distal pulses, Present capillary refill normal GASTROINTESTINAL Abdominal: Present soft, Present nontender, Present bowel sounds normal GENITOURINARY SKIN Skin: Present warm, Present dry, Present erythema MUSCULOSKELETAL Musculoskeletal: Present other (contracted) NEUROLOGICAL Neurological: Present other (vegatative state contracted long standing as per history) PSYCHOLOGICAL Assessment & Plan Medical Decision Making MDM pt with fever and hypotension IV started and transfered to main hospital for further evaluation Assessment & Plan Final Impression: (1) Hyperthermia (2) Sepsis Depart Disposition: TRANS TO OTHER [facility] Home Meds Reported Medications [albuterol sulfate] No Conflict Check, 0.083 % INH Q4H PRN for SHORTNESS OF BREATH albuterol sulfate 2.5mg/3ml 3 ml via trach q4h prn sob 08/13/19 Ketoconazole (Nizoral A-D) 125 Ml Shampoo, 1 APPFUL TOP .wed apply to scalp every thu for dandruff 08/13/19 [keppra solution] No Conflict Check, 1000 MG PEG BID 08/13/19 Folic Acid (Folic Acid) 0.8 Mg Capsule, 1 TAB PEG HS 08/13/19 Potassium Bicarbonate/Cit Ac (EFFER-K 20 MEQ TABLET EFF) 20 Meq Tablet.eff, 20 MEQ PEG thu,thu,thu08/13/19 Carbamide Peroxide (DEBROX) 15 Ml Drops, 5 DROP EACH EAR thu and thu08/13/19 Clonazepam (CLONAZEPAM) 1 Mg Tablet, 1 MG PEG Q8H, TAB 08/13/19 Baclofen (BACLOFEN) 10 Mg Tablet, 30 MG PO Q8H, #90 TAB hold for sbp <110 08/13/19 Albuterol Sulfate (ALBUTEROL SULFATE) 2.5 Mg/3 Ml Vial.neb, 3 ML INH Q8H 08/13/19 Levalbuterol Hcl (XOPENEX) 0.63 Mg/3 Ml Vial.neb, 1 INH INH Q8H PRN for SHORTNESS OF BREATH 08/13/19 Acetaminophen (ACETAMINOPHEN) 325 Mg Tablet, 650 MG PO Q4H PRN for ELEVATED TEMPERATURE for 5 Days, TAB 08/13/19 Thiamine HCl (B-1) 100 Mg Tablet, 100 MG PEG DAILY 08/13/19 Sennosides (SENNA LAXATIVE) 8.6 Mg Tablet, 1 TAB PEG DAILY 08/13/19 Scopolamine (Scopolamine) 1 Each Patch.td.3, 1 PATCH TOP Q72H 08/13/19 Polyethylene Glycol 3350 (POLYETHYLENE GLYCOL 3350) 17 Gm Powd.pack, 17 GM PO DAILY, PACKET 08/13/19 Multivitamin With Minerals (MULTIPLE VITAMIN) 1 Each Tablet, 1 TAB PEG DAILY 08/13/19 Medications in the ED Sodium Chloride 1,000 ml ONCE ONCE IV ; Start 12/02/19 at 12:00; Stop 12/02/19 at 12:01; Status DC Sodium Chloride 10 ml PRN PRN INJ IV SITE FLUSH; Start 12/02/19 at 12:00; Stop 01/01/20 at 11:59; Status MALDONADO DE MD Dec 02, 2019 12:09
--- NOTE | 2019-12-02 12:40 | NUR ---
PT ARRIVED VIA [facility] 911 FOR CALL OF HYPOXIA AT [facility]. PT ARRIVED ON NC AT 6 LPM SATING 99%. PT HELD AT ROOM AIR AT LOWEST OF 93%. PT PLACED ON NC AT 2 LPM AND SATING AT 97%. MD AT BEDSIDE AND RN'S.
[2019-12-02] MEDS ORDERED: SODIUM CHLORIDE 0.9% 1000ML 1,000 ML IV STA (12:43)
[2019-12-02] MEDS ORDERED: CEFEPIME HCL 2 GM VIAL IV ONE (12:45)
--- NOTE | 2019-12-02 12:55 | NUR ---
PT WITH LEGS BENT OUTWARD AND LEGS CONTRACTED IN THAT POSITION...PILLOWS UNDER BOTH KNEES WHERE KNEE MEETS RAILS. PILLOW UNDER HEAD. HOB 45 DEGREES. FULL MONITORS. BILATERAL IV'S FROM [facility] TRAN PLACED WITH TEMP PROB PER MD ORDERS. PT IN NO ACUTE DISTRESS. PT FROM [facility]. MASK ON.
[2019-12-02] MEDS ORDERED: CEFEPIME 2 GM/NS 0.9% 100 ML 100 ML IV ONE (13:00)
--- NOTE | 2019-12-02 13:09 | Emergency Department Note ---
History of Present Illnes History of Present Illness Chief Complaint: COVID PUI History of Present Illness This is a 44 year old male bed ridden, Per EMS 71% on RA and put on NRB to maintain sats at 95% no IV and pt from [facility], brought to the wrong ER, no report and pt has fever, productive cough, AxOX0 from an anoxic brain injury from a prior hanging. . 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 Any updates have been documented here. 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 HYPOKALEMIA PREV ETOH ABUSE ANXIETY APHONIA Other Surgery: g-tube tracheostomy Social History Alcohol Use: None (hx of alcohol abuse by history) TB Exposure/Symptoms: No Physically hurt or threatened: No Other Last Tetanus: UTD Review of Systems ROS Narrative Unable to obtain ROS: Unable to obtain due to, altered mental status Review of Systems Constitutional: Reports fever Respiratory: Reports cough Physical Exam Related Data Allergies: Coded Allergies: No Known Drug Allergies (Verified Allergy, Unknown, 08/13/19) Triage Vital Signs Vital Signs Date Time Temp Pulse Resp B/P (MAP) Pulse Ox O2 Delivery O2 Flow Rate FiO2 12/02/19 11:40 99.6 90 18 81/55 100 Non-Rebreather 15.0 Physical Exam CONSTITUTIONAL Constitutional: Present cachectic, Present diaphoretic HENT HENT: Present normocephalic, Present atraumatic EYES NECK Neck: Present ROM normal, Present supple PULMONARY Pulmonary: Present effort normal, Present rhonchi CARDIOVASCULAR Cardiovascular: Present regular rhythm, Present heart sounds normal, Present intact distal pulses, Present capillary refill normal GASTROINTESTINAL Abdominal: Present soft, Present nontender, Present bowel sounds normal GENITOURINARY SKIN Skin: Present warm, Present dry, Present erythema MUSCULOSKELETAL Musculoskeletal: Present other (contracted) NEUROLOGICAL Neurological: Present other (vegatative state contracted long standing as per history) PSYCHOLOGICAL Results Laboratory Lab results reviewed: Yes Imaging Imaging results reviewed: Yes Assessment & Plan Depart Disposition: TRANS TO OTHER [facility] F[facility] Last Vital Signs Date Time Temp Pulse Resp B/P (MAP) Pulse Ox O2 Delivery O2 Flow Rate FiO2 12/02/19 11:40 99.6 90 18 81/55 100 Non-Rebreather 15.0 Home Meds Reported Medications [albuterol sulfate] No Conflict Check, 0.083 % INH Q4H PRN for SHORTNESS OF BREATH albuterol sulfate 2.5mg/3ml 3 ml via trach q4h prn sob 08/13/19 Ketoconazole (Nizoral A-D) 125 Ml Shampoo, 1 APPFUL TOP .wed apply to scalp every thu for dandruff 08/13/19 [keppra solution] No Conflict Check, 1000 MG PEG BID 08/13/19 Folic Acid (Folic Acid) 0.8 Mg Capsule, 1 TAB PEG HS 08/13/19 Potassium Bicarbonate/Cit Ac (EFFER-K 20 MEQ TABLET EFF) 20 Meq Tablet.eff, 20 MEQ PEG mon,thu,thu08/13/19 Carbamide Peroxide (DEBROX) 15 Ml Drops, 5 DROP EACH EAR thu and thu08/13/19 Clonazepam (CLONAZEPAM) 1 Mg Tablet, 1 MG PEG Q8H, TAB 08/13/19 Baclofen (BACLOFEN) 10 Mg Tablet, 30 MG PO Q8H, #90 TAB hold for sbp <110 08/13/19 Albuterol Sulfate (ALBUTEROL SULFATE) 2.5 Mg/3 Ml Vial.neb, 3 ML INH Q8H 08/13/19 Levalbuterol Hcl (XOPENEX) 0.63 Mg/3 Ml Vial.neb, 1 INH INH Q8H PRN for SHORTNESS OF BREATH 08/13/19 Acetaminophen (ACETAMINOPHEN) 325 Mg Tablet, 650 MG PO Q4H PRN for ELEVATED TEMPERATURE for 5 Days, TAB 08/13/19 Thiamine HCl (B-1) 100 Mg Tablet, 100 MG PEG DAILY 08/13/19 Sennosides (SENNA LAXATIVE) 8.6 Mg Tablet, 1 TAB PEG DAILY 08/13/19 Scopolamine (Scopolamine) 1 Each Patch.td.3, 1 PATCH TOP Q72H 08/13/19 Polyethylene Glycol 3350 (POLYETHYLENE GLYCOL 3350) 17 Gm Powd.pack, 17 GM PO DAILY, PACKET 08/13/19 Multivitamin With Minerals (MULTIPLE VITAMIN) 1 Each Tablet, 1 TAB PEG DAILY 08/13/19 Medications in the ED Sodium Chloride 1,000 ml ONCE ONCE IV ; Start 12/02/19 at 12:00; Stop 12/02/19 at 12:01; Status DC Sodium Chloride 10 ml PRN PRN INJ IV SITE FLUSH; Start 12/02/19 at 12:00; Stop 01/01/20 at 11:59 Cefepime HCl 2 gm ONCE ONCE IV ; Start 12/02/19 at 12:45; Stop 12/02/19 at 12:46; Status UNV Sodium Chloride 1,000 ml @ 0 mls/hr Q0M STAT IV ; Start 12/02/19 at 12:43; Stop 12/02/19 at 12:46; Status DC Vancomycin HCl 250 ml @ 167 mls/hr ONCE ONCE IV ; Start 12/02/19 at 14:00; Stop 12/02/19 at 15:29 Cefepime HCl 100 ml @ 100 mls/hr ONCE ONCE IV ; Start 12/02/19 at 13:00; Stop 12/02/19 at 13:59 RAJAN JASON MD Dec 02, 2019 13:09
[2019-12-02 13:36] LABS: BASOPHILS % 0.2 % (0.0-1.0); EOSINOPHILS % 0.2 % (0.0-6.0); HEMATOCRIT 43.1 % (38.2-49.6); HEMOGLOBIN 12.6 g/dL (14.0-18.0); LYMPHOCYTES # (AUTO) 1.5 (1.0-3.2); LYMPHOCYTES % 28.7 % (18.0-39.1); MEAN CORPUSCULAR HEMOGLOBIN 28.7 pg (28-32); MEAN CORPUSCULAR HGB CONC 29.2 g/dL (31-35); MEAN CORPUSCULAR VOLUME 98.2 fL (81-99); MONOCYTES # (AUTO) 0.5 (0.2-0.8); MONOCYTES % 9.4 % (4.4-11.3); NEUTROPHILS # (AUTO) 3.2 (2.1-6.9); NEUTROPHILS % 61.1 % (38.7-80.0); PLATELET COUNT 69 x10e3/uL (140-360); RED BLOOD COUNT 4.39 x10e6/uL (4.3-5.7); RED CELL DISTRIBUTION WIDTH 13.4 % (11.7-14.4)
--- NOTE | 2019-12-02 13:55 | Diagnostic Imaging Report ---
EXAMINATION: CHEST SINGLE (PORTABLE) INDICATION: Sepsis COMPARISON: Chest radiograph 08/14/2019 FINDINGS: LINES/TUBES:EKG leads overlie the chest. LUNGS:The lungs are moderately inflated. Mild bibasilar patchy opacities. PLEURA:No pleural effusion or pneumothorax. MEDIASTINUM:The cardiomediastinal silhouette appears normal in size and shape. BONES/SOFT TISSUES:No acute osseous injury. ABDOMEN:No free air under the diaphragm. IMPRESSION: Mild bibasilar patchy opacities may represent atelectasis however superimposed pneumonia should be excluded clinically. Signed by: Sherlyn Trinidad MD on 12/02/2019 1:52 PM
[2019-12-02 13:56] LABS: INR 1.02; PROTHROMBIN TIME 13.9 seconds (11.9-14.5)
[2019-12-02 13:57] LABS: PARTIAL THROMBOPLASTIN TIME 33.3 seconds (23.8-35.5)
[2019-12-02] MEDS ORDERED: VANCOMYCIN 1GM/NS 250 ML 250 ML IV ONE (14:00)
[2019-12-02 14:05] LABS: ALANINE AMINOTRANSFERASE 67 IU/L (0-55); ALBUMIN 2.9 g/dL (3.5-5.0); ALBUMIN/GLOBULIN RATIO 0.6 (0.8-2.0); ALKALINE PHOSPHATASE 117 IU/L (40-150); ANION GAP 14.6 mmol/L (8-16); BLOOD UREA NITROGEN 34 mg/dL (7-26); BUN/CREATININE RATIO 49 (6-25); CALCIUM 8.6 mg/dL (8.4-10.2); CARBON DIOXIDE 29 mmol/L (22-29); CHLORIDE 121 mmol/L (98-107); CREATINE KINASE 47 IU/L (30-200); EST GLOMERULAR FILTRATION RATE > 60 ML/MIN (60-); GLUCOSE 104 mg/dL (74-118); POTASSIUM 4.6 mmol/L (3.5-5.1); SODIUM 160 mmol/L (136-145)
--- NOTE | 2019-12-02 14:48 | NUR ---
attempted twice to call [facility] and give report, left on hold both times.
--- NOTE | 2019-12-02 14:49 | NUR ---
[facility] called for pt transport back to [facility] as per policy
[2019-12-02 14:50] LABS: BILIRUBIN,URINE NEGATIVE (NEGATIVE); CLARITY,URINE SL CLOUDY (CLEAR); COLOR,URINE STRAW (YELLOW); KETONES,URINE NEGATIVE (NEGATIVE); LEUKOCYTE ESTERASE ,URINE NEGATIVE (NEGATIVE); NITRITE,URINE NEGATIVE (NEGATIVE); PROTEIN,URINE DIPSTICK 2+ (NEGATIVE); URINE UROBILINOGEN 1 mg/dL (0.2 - 1)
[2019-12-02 15:11] LABS: BACTERIA,URINE MODERATE /HPF; EPITHELIAL CELLS,URINE FEW /LPF
== END 2019-12-02 16:52 ==
LOC: FSED 12:00 → ER 16:52
DX: A41.9 Sepsis, unspecified organism (principal); R50.9 Fever, unspecified; R05 Cough; R49.1 Aphonia; L89.899 Pressure ulcer of other site, unspecified stage; Z87.820 Personal history of traumatic brain injury; Z91.5 Personal history of self-harm; E11.9 Type 2 diabetes mellitus without complications; F41.9 Anxiety disorder, unspecified; M62.462 Contracture of muscle, left lower leg; M62.461 Contracture of muscle, right lower leg; Z93.0 Tracheostomy status; Z93.1 Gastrostomy status
CPT/HCPCS: 36415; 51700; 71045; 80053; 81001; 82550; 82553; 83605; 84484; 85025; 85610; 85730; 87040; 87086; 87186; 99284; J3370; J7030

== ENCOUNTER 2020-01-13 20:03 | Emergency (ER) | payer OTHER, MEDICARE ==
[~2020-01-13] VITALS: Ht 167.6 cm; Wt 59.0 kg
--- NOTE | 2020-01-13 20:11 | Emergency Department Note ---
History of Present Illnes History of Present Illness History of Present Illness This is a 44 year old male brought by EMS for PEG tube replacement after it was inadvertantly removed . 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 Arrival Mode: [place] History limited by: condition of the patient Onset (how long ago): minute(s) Radiation: Reports abdomen Severity: mild Onset quality: sudden Duration (how long): hour(s) Timing of current episode: constant Progression: unchanged Chronicity: new Context: Denies recent illness, Denies recent surgery, Denies recent immobilization, Denies recent travel, Denies trauma/injury, Denies new medications, Denies hx of DVT/PE, Denies non-compliance w/ medications, Denies other Relieving factors: none Exacerbating factors: none Associated symptoms: Reports denies other symptoms Past Medical/Family History Physician Review I have reviewed the patient's past medical and family history. Any updates have been documented here. 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 HYPOKALEMIA PREV ETOH ABUSE ANXIETY APHONIA Other Surgery: g-tube tracheostomy Other Last Tetanus: UTD Review of Systems Review of Systems Constitutional: Reports no symptoms EENTM: Reports no symptoms Cardiovascular: Reports no symptoms Respiratory: Reports no symptoms Gastrointestinal: Reports no symptoms Genitourinary: Reports no symptoms Musculoskeletal: Reports no symptoms Integumentary: Reports no symptoms Neurological: Reports no symptoms Psychological: Reports no symptoms Endocrine: Reports no symptoms Hematological/Lymphatic: Reports no symptoms Physical Exam Related Data Allergies: Coded Allergies: No Known Drug Allergies (Verified Allergy, Unknown, 08/13/19) Vital signs reviewed: Yes Physical Exam CONSTITUTIONAL HENT EYES NECK PULMONARY CARDIOVASCULAR GASTROINTESTINAL Abdominal: Present soft, Present other (orifice feeding tube intact without erythema) GENITOURINARY SKIN MUSCULOSKELETAL NEUROLOGICAL PSYCHOLOGICAL Procedures Feeding Tube Replacement Type of tube: gastrostomy Prior insertion site: clean Tube used for reinsertion: other Tube size (F): 20 Balloon size (mL): 6 Patient tolerated procedure: well Assessment & Plan Medical Decision Making MDM feeding tube 20 FR 6 ml balloon replaced without incident Assessment & Plan Final Impression: (1) PEG (percutaneous endoscopic gastrostomy) adjustment/replacement/removal Depart Disposition: HOME, SELF-half-way Meds Reported Medications [albuterol sulfate] No Conflict Check, 0.083 % INH Q4H PRN for SHORTNESS OF BREATH albuterol sulfate 2.5mg/3ml 3 ml via trach q4h prn sob 08/13/19 Ketoconazole (Nizoral A-D) 125 Ml Shampoo, 1 APPFUL TOP .wed apply to scalp every thu for dandruff 08/13/19 [keppra solution] No Conflict Check, 1000 MG PEG BID 08/13/19 Folic Acid (Folic Acid) 0.8 Mg Capsule, 1 TAB PEG HS 08/13/19 Potassium Bicarbonate/Cit Ac (EFFER-K 20 MEQ TABLET EFF) 20 Meq Tablet.eff, 20 MEQ PEG mon,thu,thu08/13/19 Carbamide Peroxide (DEBROX) 15 Ml Drops, 5 DROP EACH EAR thu and thu08/13/19 Clonazepam (CLONAZEPAM) 1 Mg Tablet, 1 MG PEG Q8H, TAB 08/13/19 Baclofen (BACLOFEN) 10 Mg Tablet, 30 MG PO Q8H, #90 TAB hold for sbp <110 08/13/19 Albuterol Sulfate (ALBUTEROL SULFATE) 2.5 Mg/3 Ml Vial.neb, 3 ML INH Q8H 08/13/19 Levalbuterol Hcl (XOPENEX) 0.63 Mg/3 Ml Vial.neb, 1 INH INH Q8H PRN for SHORTNESS OF BREATH 08/13/19 Acetaminophen (ACETAMINOPHEN) 325 Mg Tablet, 650 MG PO Q4H PRN for ELEVATED TEMPERATURE for 5 Days, TAB 08/13/19 Thiamine HCl (B-1) 100 Mg Tablet, 100 MG PEG DAILY 08/13/19 Sennosides (SENNA LAXATIVE) 8.6 Mg Tablet, 1 TAB PEG DAILY 08/13/19 Scopolamine (Scopolamine) 1 Each Patch.td.3, 1 PATCH TOP Q72H 08/13/19 Polyethylene Glycol 3350 (POLYETHYLENE GLYCOL 3350) 17 Gm Powd.pack, 17 GM PO DAILY, PACKET 08/13/19 Multivitamin With Minerals (MULTIPLE VITAMIN) 1 Each Tablet, 1 TAB PEG DAILY 08/13/19 MICHAEL STEIN DO Jan 13, 2020 20:11
--- OUTSIDE RECORDS SUMMARY | 2020-01-13 20:30 | XMS REPORT | Continuity of Care Document ---
Author Author [facility] t Organization [facility] Address 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 Name Role Phone MALLORY ROJAS, MD PATTON PCP Rhett JASON Attphys Unavailable SANDHIR, S AMBICA Attphys Unavailable TEJADA, SOUHEIL Attphys Unavailable TEJADA, SOUHEIL Admphys Unavailable Payers Payer Name Policy Type Policy Number Effective Date Expiration Date S yumiko [facility] [id number] 2019 00:00:00 [facility] [employer] [id number] 2019 00:00:00 [facility] Medicare A & B [id number] 2014 00:00:00 [facility] Cdc Review Covid19 [id number] [facility] Medicaid [id number] 2019 00:00:00 [facility] Problems Condition Name Condition Details Condition Category Status Onset Date Resolution Date Last Treatment Date Treating Clinician Comments Source Body temperature above normal Hyperthermia Problem Active [facility] Pneumonia Pneumonia Problem Active [facility] Sepsis Problem Active [facility] Allergies, Adverse Reactions, Alerts Allergy Name Allergy Type Status Severity Reaction(s) Onset Date Inacti ve Date Treating Clinician Comments Source No Known Allergies DA Active U 2019-10-26 00:00:00 [facility] No Known Allergies DA Active U 2019-10-09 00:00:00 [facility] No Known Drug Allergies DA Active U 2019-09-12 00:00:00 [facility] No Known Contrast Allergies DA Active U 2007-08-26 00:00: 00 [facility] No Known Drug Allergies DA Active U 2007-08-26 00:00:00 [facility] No Known Food Allergies DA Active U 2007-08-26 00:00:00 [facility] No Known Other Allergies DA Active U 2007-08-26 00:00:00 [facility] Social History Social Habit Start Date Stop Date Quantity Comments Source Sex Assigned At 1975 00:00:00 1975 00:00:00 Male [facility] Medications Ordered Medication Name Filled Medication Name Start Date Stop Da te Current Medication? Ordering Clinician Indication Dosage Frequency Signature (SIG) Comments Components Source Acetaminophen Acetaminophen Yes 650 Every 4 Hours as needed for Elevated Temperature [facility] Albuterol Sulfate Albuterol Sulfate Yes .0 83 Every 4 Hours as needed for Shortness Of Breath [facility] Albuterol Sulfate Albuterol Sulfate Yes 3 Ever y 8 Hours [facility] Baclofen Baclofen Yes 30 Every 8 Hours [facility] Carbamide Peroxide (Debrox) 15 Ml DROPS Carbamide Peroxide ( Debrox) 15 Ml DROPS Yes 5 Mon And Fri [facility] Clonazepam Clonazepam Yes 1 Every 8 Hours [facility] Folic Acid Folic Acid Yes 1 Bedtime [facility] Keppra Solution Keppra Solution Yes 1000 Twice A Day [facility] Ketoconazole (Nizoral A-D) 125 Ml SHAMPOO Ketoconazole (Nizoral A-D) 125 Ml SHAMPOO Yes 1 .wed [facility] Levalbuterol Hcl (Xopenex) 0.63 Mg/3 Ml VIAL.NEB Leval buterol Hcl (Xopenex) 0.63 Mg/3 Ml VIAL.NEB Yes 1 Every 8 Hours as needed for Shortness Of Breath [facility] Multivitamin With Minerals (Multiple Vitamin) 1 Each T ABLET Multivitamin With Minerals (Multiple Vitamin) 1 Each TABLET Yes 1 Daily [facility] Polyethylene Glycol 3350 Polyethylene Glycol 3350 Yes 17 Daily [facility] Potassium Bicarbonate/Cit Ac (Effer-K 20 Meq Tablet Ef f) 20 Meq TABLET.EFF Potassium Bicarbonate/Cit Ac (Effer-K 20 Meq Tablet Eff) 20 Meq TABLET.EFF Yes 20 Mon,Wed,Fri [facility] Scopolamine Scopolamine Yes 1 Every 72 Hours [facility] Sennosides (Senna Laxative) 8.6 Mg TABLET Sennosides ( Senna Laxative) 8.6 Mg TABLET Yes 1 Daily [facility] Thiamine Hcl (B-1) 100 Mg TABLET Thiamine Hcl (B-1) 100 Mg TABLET Yes 100 Daily [facility] Vital Signs Vital Name Observation Time Observation Value Comments Source Weight 2019-12-02 11:40:00 130 [lb_av] [facility] BMI (Body Mass Index) 2019-12-02 11:40:00 21.0 kg/m2 [facility] Body Temperature 2019-10-13 11:06:00 98.0 [degF] [facility] Weight 2019-10-13 08:47:00 181 [lb_av] [facility] BMI (Body Mass Index) 2019-10-13 08:47:00 25.2 kg/m2 [facility] Procedures Procedure Date / Time Performed Performing Clinician Sournadja e ISAAKC GTUBE NO REVJ TRC 2019-10-13 00:00:00 [facility] Computed tomography of chest without contrast 2019-08-13 00: 00:00 KAY PHILIPPE [facility] Encounters Start Date/Time End Date/Time Encounter Type Admission Type [facility] Care Department Encounter ID Source 2019-12-02 12:00:00 2019-12-02 16:52:00 Departed Emergency Room 1 RAJAN JASON [facility] [id number] [facility] 2019-10-13 08:48:00 2019-10-13 11:48:00 Departed Emergency Room 1 GISELA LAYNE [facility] [id number] [facility] 2019-08-13 05:31:00 2019-08-15 14:30:00 Discharged Inpatient 1 ABDI TEJADA [facility] [id number] [facility] Results Test Description Test Time Test Comments Results Result Comments Source GLUBED 2019-12-12 00:53:00 Test Item GLUBED (test code = GLUBED) 78 mg/dL 74-106 N Performed by certified concrete pile driver operator at [facility] - CONT INJ GS/ RISSA/ MEGAN/ [id number] 23:55:00 FAX: Lisa Sinhg [phone] [facility] St: REG Name: VANESSA ANDREA [facility] : [birth year] Age/S: 44/M [address] [facility] Unit #: [id number] Loc: [place] [address] Phys: Lisa An Acct: [id number] Dis Date: Status: REG ER PHONE #: [phone] Exam Date: 12/11/20192343 FAX #: [phone] Reason: PEG replacement EXAMS: CPT CODE: [id number] CONT INJ GS/ DU/ JJ/ G G 51021 DICTATION LOCATION: [facility] HISTORY: Male, 44 years of age with PEG replacement EXAM: TWO VIEWS OF THE ABDOMEN COMPARISON: 11/24/2019 FIND INGS: 2 sequential frontal views of the abdomen are provided, the 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 Injected contrast resides in the s tomach lumen indicating that the gastrostomy tube is in satisfactory posit ion. No extravasation of contrast into peritoneal cavity. IMPRESSION: Gastrostomy tube is in satisfactory position. Electro nically Signed by Toya Casey MD on 12/11/2019 at 4495 Reported and signed by: Toya Casey MD CC: Sherice An MD Technologist: Luna Edmondson Trnscrd Date/Time/By: 12/11/2019 (1497) : By: Cielo Orig Print D/T: S: 12/11/2019 (3060) PAGE 1 Signed Report [id number] 23:24:00* Test Item Value Reference Range Interpretation Comments GLUBED (test code = GLUBED) 71 mg/dL 74-106 L Performed by certified concrete pile driver operator at [facility] CHEST SINGLE (PORTABLE)2019-12-02 13:50:00 [place] [address] Patient Name: VANESSA KHOURY MR #: [id number] : 1975 Age/Sex: 44/M Req #: [id number] Adm Physician: Ordered by: RAJAN JASON MD Report #: [id number] Location: ER Room/Bed: Procedure: [id number] DX/CHEST SINGLE ( PORTABLE) Exam Date: 12/02/19 Exam Time: 1308 REPORT STATUS: Signed EXAMINATION: CH EST SINGLE (PORTABLE) INDICATION: Sepsis COMPARISON: Chest radiogr aph 08/14/2019 FINDINGS: LINES/TUBES:EKG leads overlie the chest. LUNGS:The lungs are moderately inflated. Mild bibasilar patchy opacities. PLEURA:No pleural effusion or pneumothorax. MEDIASTINUM:The cardiomedias tinal silhouette appears normal in size and shape. BONES/SOFT TISSUES:No ac sleetmute osseous injury. ABDOMEN:No free air under the diaphragm. IMPRES CHARLI: Mild bibasilar patchy opacities may represent atelectasis however super imposed pneumonia should be excluded clinically. Signed by: Jam Lee on 12/02/2019 1:52 PM Dictated By: CHRIS ALLISON MD 51 Transcribed By: SARAH on 12/02/191351 COPY TO: RAJAN JASON MD Fluoroscopic procedure less than one hour rbnydflu1696-07-03 13:00:00* Test Item Value Reference Range Interpretation Comments Lactic Acid Level (test code = Lactic Acid Level) 1.7 0.5- 2.0 [facility] leukocytes automated count (number/volume)2019-12-02 12:40:00* Test Item Value Reference Range Interpretation Comments White Blood Count (test code = 6690-2) 5.19 4.8-10.8 [facility] erythrocytes automated count (number/volume)2019-12-02 12:40:00* Test Item Value Reference Range Interpretation Comments Red Blood Count (test code = 789-8) 4.39 4.3-5.7 [facility] CenterBlood hemoglobin measurement (moles/volume)2019-12-02 12:40:00* Test Item Value Reference Range Interpretation Comments Hemoglobin (test code = 96148-4) 12.6 14.0-18.0 [facility] CenterAutomated blood hematocrit (volume fraction)2019-12-02 12:40:00* Test Item Value Reference Range Interpretation Comments Hematocrit (test code = 4544-3) 43.1 38.2-49.6 [facility] CenterAutomated erythrocyte mean corpuscular mfdzjx8089-75-80 12:40:00* Test Item Value Reference Range Interpretation Comments Mean Corpuscular Volume (test code = 787-2) 98.2 81-99 [facility] CenterAutomated erythrocyte mean corpuscular hemoglobin (mass per erythrocyte)2019-12-02 12:40:00* Test Item Value Reference Range Interpretation Comments Mean Corpuscular Hemoglobin (test code = 785-6) 28.7 28-32 [facility] CenterAutomated erythrocyte mean corpuscular hemoglobin concentration measurement (mass/volume)2019-12-02 12:40:00* Test Item Value Reference Range Interpretation Comments Mean Corpuscular Hemoglobin Concent (test code = 786-4) 29.2 31-35 [facility] CenterRDW WxsRr-Otc2247-85-24 12:40:00* Test Item Value Reference Range Interpretation Comments Red Cell Distribution Width (test code = 80447-3) 13.4 11.7 -14.4 [facility] CenterAutomated blood platelet count (count/volume)2019-12-02 12:40:00* Test Item Value Reference Range Interpretation Comments Platelet Count (test code = 777-3) 69 140-360 [facility] CenterAutomated blood segmented neutrophil count as percentage of total jtsswuwlpe6725-77-27 12:40:00* Test Item Value Reference Range Interpretation Comments Neutrophils (%) (Auto) (test code = 28419-0) 61.1 38.7-80.0 [facility] CenterAutomated blood lymphocyte count as percentage ot total btbjddjtwb7501-26-19 12:40:00* Test Item Value Reference Range Interpretation Comments Lymphocytes (%) (Auto) (test code = 736-9) 28.7 18.0-39.1 [facility] CenterAutomated blood monocyte count as percentage of total yzhlhrattx5814-43-30 12:40:00* Test Item Value Reference Range Interpretation Comments Monocytes (%) (Auto) (test code = 5905-5) 9.4 4.4-11.3 [facility] CenterAutomated blood eosinophil count as percentage of total ianzcmqiww4158-74-59 12:40:00* Test Item Value Reference Range Interpretation Comments Eosinophils (%) (Auto) (test code = 713-8) 0.2 0.0-6.0 [facility] CenterAutomated blood basophil count as percentage of total tswinurmdo5738-00-26 12:40:00* Test Item Value Reference Range Interpretation Comments Basophils (%) (Auto) (test code = 706-2) 0.2 0.0-1.0 [facility] CenterFluoroscopic procedure less than one hour xmlbyhfg2608-26-48 12:40:00* Test Item Value Reference Range Interpretation Comments IM GRANULOCYTES % (test code = IM GRANULOCYTES %) 0.4 0.0- 1.0 [facility] CenterAutomated blood neutrophil count 2019-12-02 12:40:00* Test Item Value Reference Range Interpretation Comments Neutrophils # (Auto) (test code = 751-8) 3.2 2.1-6.9 [facility] CenterBlood lymphocytes count (number/volume) 2019-12-02 12:40:00* Test Item Value Reference Range Interpretation Comments Lymphocytes # (Auto) (test code = 19965-5) 1.5 1.0-3.2 [facility] monocytes automated count (number/volume)2019-12-02 12:40:00* Test Item Value Reference Range Interpretation Comments Monocytes # (Auto) (test code = 742-7) 0.5 0.2-0.8 [facility] CenterAutomated blood eosinophil count 2019-12-02 12:40:00* Test Item Value Reference Range Interpretation Comments Eosinophils # (Auto) (test code = 711-2) 0.0 0.0-0.4 [facility] CenterAutomated blood basophil count (count/volume)2019-12-02 12:40:00* Test Item Value Reference Range Interpretation Comments Basophils # (Auto) (test code = 704-7) 0.0 0.0-0.1 [facility] CenterFluoroscopic procedure less than one hour zrezmgnm5794-85-16 12:40:00* Test Item Value Reference Range Interpretation Comments Absolute Immature Granulocyte (auto (mabel t code = Absolute Immature Granulocyte (auto) 0.02 0-0.1 [facility] CenterProthrombin time (PT) in platelet poor plasma by coagulation coehc1953-90-47 12:40:00* Test Item Value Reference Range Interpretation Comments Prothrombin Time (test code = 5902-2) 13.9 11.9-14.5 [facility] CenterINR in Platelet poor plasma by Coagulation fvlfm8137-79-49 12:40:00* Test Item Value Reference Range Interpretation Comments Prothromb Time International Ratio (test code = 6301-6) 1.02 Oral Anticoagulant Therapy INR Values:1. Low Intensity Therapy 1.5 - 2.02 . Moderate Intensity Therapy 2.0 - 3.03. High Intensity Therapy(1) 2.5 - 3. 54. High Intensity Therapy(2) 3.0 - 4.05. Panic Value INR > 5.0 [facility] CenterActivated partial thromboplastin time (aPTT) in platelet poor plasma by coagulation eseka2646-52-70 12:40:00* Test Item Value Reference Range Interpretation Comments Activated Partial Thromboplast Time (test code = 92599-9) 33.3 23.8-35.5 [facility] CenterUrine color gqmgcshxcpwzj0808-14-97 12:40:00* Test Item Value Reference Range Interpretation Comments Urine Color (test code = 5778-6) STRAW YELLOW [facility] CenterUrine qcoaudb1011-60-71 12:40:00* Test Item Value Reference Range Interpretation Comments Urine Clarity (test code = 23821-2) SL CLOUDY CLEAR [facility] gravity of Urine by Test strip 2019-12-02 12:40:00* Test Item Value Reference Range Interpretation Comments Urine Specific [place] (test code = 5811-5) 1.020 1.010-1.02 5 [facility] CenterUrine pH measurement by automated test qpljw4338-49-22 12:40:00* Test Item Value Reference Range Interpretation Comments Urine pH (test code = 81724-6) 5.5 5-7 [facility] CenterUrine leukocyte esterase detection by vavdxfcf1460-07-18 12:40:00* Test Item Value Reference Range Interpretation Comments Urine Leukocyte Esterase (test code = 5799-2) NEGATIVE NEGATIVE [facility] CenterUrine nitrite loyddziao6145-09-75 12:40:00* Test Item Value Reference Range Interpretation Comments Urine Nitrite (test code = 67195-4) NEGATIVE NEGATIVE [facility] CenterUrine protein measurement by test strip (mass/volume)2019-12-02 12:40:00* Test Item Value Reference Range Interpretation Comments Urine Protein (test code = 5804-0) 2+ NEGATIVE [facility] CenterUrine glucose ebobvjsdf6844-34-55 12:40:00* Test Item Value Reference Range Interpretation Comments Urine Glucose (UA) (test code = 2349-9) NEGATIVE NEGATIVE [facility] CenterUrine ketones detection by automated test buoke5460-36-21 12:40:00* Test Item Value Reference Range Interpretation Comments Urine Ketones (test code = 45878-8) NEGATIVE NEGATIVE [facility] CenterUrine urobilinogen measurement by test strip (mass/volume)2019-12-02 12:40:00* Test Item Value Reference Range Interpretation Comments Urine Urobilinogen (test code = 73486-1) 1 0.2-1 [facility] CenterUrine total bilirubin measurement (mass/volume)2019-12-02 12:40:00* Test Item Value Reference Range Interpretation Comments Urine Bilirubin (test code = 1978-6) NEGATIVE NEGATIVE [facility] CenterUrine erythrocytes jpadqyzls0432-30-45 12:40:00* Test Item Value Reference Range Interpretation Comments Urine Blood (test code = 04122-7) MODERATE NEGATIVE [facility] CenterAutomated urine sediment leukocyte count by microscopy (number/high power field)2019-12-02 12:40:00* Test Item Value Reference Range Interpretation Comments Urine WBC (test code = 5821-4) NONE 0-5 [facility] CenterErythrocytes detection in urine sediment by light bljelztiis4389-62-24 12:40:00* Test Item Value Reference Range Interpretation Comments Urine RBC (test code = 11485-6) 6-10 0-5 [facility] CenterBacteria detection in urine sediment by light lqfrcgkwdc2947-54-45 12:40:00* Test Item Value Reference Range Interpretation Comments Urine Bacteria (test code = 17557-1) MODERATE NONE [facility] CenterEpithelial cells detection in urine sediment by light xbskefggcj4632-68-41 12:40:00* Test Item Value Reference Range Interpretation Comments Urine Epithelial Cells (test code = 63169-2) FEW NONE [facility] Hospitalerum or plasma sodium measurement (moles/volume)2019-12-02 12:40:00* Test Item Value Reference Range Interpretation Comments Sodium Level (test code = 2951-2) 160 136-[address] [facility] Hospitalerum or plasma potassium measurement (moles/volume)2019-12-02 12:40:00* Test Item Value Reference Range Interpretation Comments Potassium Level (test code = 2823-3) 4.6 3.5-5.[address] [facility] [facility] Hospitalerum or plasma chloride measurement (moles/volume)2019-12-02 12:40:00* Test Item Value Reference Range Interpretation Comments Chloride Level (test code = 2075-0) 121 98-[address] [facility] [facility] Hospitalerum or plasma carbon dioxide, total measurement (moles/volume)2019-12-02 12:40:00* Test Item Value Reference Range Interpretation Comments Carbon Dioxide Level (test code = 2028-9) 29 22-[address] [facility] Hospitalerum or plasma anion wgn3982-70-87 12:40:00* Test Item Value Reference Range Interpretation Comments Anion Gap (test code = 05586-7) 14.6 8-[address] [facility] [facility] Hospitalerum or plasma urea nitrogen measurement (mass/volume)2019-12-02 12:40:00* Test Item Value Reference Range Interpretation Comments Blood Urea Nitrogen (test code = 3094-0) 34 7-[address] [facility] Hospitalerum or plasma creatinine measurement (mass/volume)2019-12-02 12:40:00* Test Item Value Reference Range Interpretation Comments Creatinine (test code = 2160-0) 0.70 0.72-1.[address] [facility] Hospitalerum or plasma urea nitrogen/creatinine mass oaepy8544-96-47 12:40:00* Test Item Value Reference Range Interpretation Comments BUN/Creatinine Ratio (test code = 3097-3) 49 6-25 [facility] CenterEstimated glomerular filtration rate (GFR) awxrvszsafoyn8485-37-32 12:40:00* Test Item Value Reference Range Interpretation Comments Estimat Glomerular Filtration Rate (test code = 372226310) > 60 >60 Ranges were taken from the National Kidney Disease Education Program and the [facility] Hospital[facility] Kidney Foundation literature.Reference ranges:60 or greater: Ieghth51-94 ( for 3 consecutive months): Chronic kidney disease 15 or less: Kidney failureMemorial Hermann Memorial City Medical CenterGlucose sgtdainyzpb0479-72-02 12:40:00* Test Item Value Reference Range Interpretation Comments Glucose Level (test code = MFH4661) 104 74-[address] [facility] Hospitalerum or plasma calcium measurement (mass/volume)2019-12-02 12:40:00* Test Item Value Reference Range Interpretation Comments Calcium Level (test code = 06078-5) 8.6 8.4-10.[address] [facility] Hospitalerum or plasma total bilirubin measurement (mass/volume)2019-12-02 12:40:00* Test Item Value Reference Range Interpretation Comments Total Bilirubin (test code = 1975-2) 0.4 0.2-1.2 [facility] CenterFluoroscopic procedure less than one hour lzxwqpbz9540-20-15 12:40:00* Test Item Value Reference Range Interpretation Comments Aspartate Amino Transf (AST/SGOT) (test code = Aspartate Amino Transf (AST/SGOT)) 61 5-[address] [facility] Hospitalerum or plasma alanine aminotransferase measurement (enzymatic activity/volume)2019-12-02 12:40:00* Test Item Value Reference Range Interpretation Comments Alanine Aminotransferase (ALT/SGPT) (test code = 1742-6) 67 0-[address] [facility] Hospitalerum or plasma protein measurement (mass/volume)2019-12-02 12:40:00* Test Item Value Reference Range Interpretation Comments Total Protein (test code = 2885-2) 7.9 6.5-8.[address] [facility] Hospitalerum or plasma albumin measurement (mass/volume)2019-12-02 12:40:00* Test Item Value Reference Range Interpretation Comments Albumin (test code = 1751-7) 2.9 3.5-5.0 [facility] CenterPlasma globulin measurement (mass/volume) 2019-12-02 12:40:00* Test Item Value Reference Range Interpretation Comments Globulin (test code = 72469-7) 5.0 2.3-3.[address] [facility] Hospitalerum or plasma albumin/globulin mass pbkpl7422-48-16 12:40:00* Test Item Value Reference Range Interpretation Comments Albumin/Globulin Ratio (test code = 1759-0) 0.6 0.8-2.[address] [facility] Hospitalerum or plasma alkaline phosphatase measurement (enzymatic activity/volume)2019-12-02 12:40:00* Test Item Value Reference Range Interpretation Comments Alkaline Phosphatase (test code = 6768-6) 117 40-[address] [facility] Hospitalerum or plasma creatine kinase measurement (enzymatic activity/volume)2019-12-02 12:40:00* Test Item Value Reference Range Interpretation Comments Creatine Kinase (test code = 2157-6) 47 30-[address] [facility] Hospitalerum or plasma creatine kinase MB measurement (mass/volume)2019-12-02 12:40:00* Test Item Value Reference Range Interpretation Comments Creatine Kinase MB (test code = 95742-0) 0.60 0-5.0 [facility] CenterTroponin I measurement by highly sensitive enzyme voilxefcbro2440-93-06 12:40:00* Test Item Value Reference Range Interpretation Comments Troponin I (test code = 65791-0) 0.002 0-0.300 [facility]- XR ABDOMEN AP 1 [id number] 02:35:00 FAX: Cr Regan MD [phone] [facility] [address]: REG Name: VANESSA ANDREA [facility] : [birth year] Age/S: 44/M [address] Unit #: [id number] Loc: [place] [address] Phys: Cr Regan MD Acct: [id number] Dis Date: Status: REG ER PHONE #: [phone] Exam Date: 11/24/2019 0150 FAX #: [phone] Reason: g tube replacement EXAMS: CPT CODE: [id number] XR ABDOMEN AP 1 V 39244 Abdomen one view with contrast inj ection Location: H24 HISTORY:g tube replacement Comparison:None available Findings: Supine views of the abdomen were obtained before and after contrast injection. There is PEG tube bulb projects over the gastric body. Contrast i s confirmed within the stomach and proximal duodenum. There is no o bvious extravasation of contrast on limited supine view. Bowel gas patter n appears nonobstructive. There is moderate stool within the visualized c olon which may indicate mild degree of constipation. There is no organome elva. IMPRESSION: PEG tube is located within the gastri c body. Contrast is confined to the stomach and duodenum on limited sup ine view. Electronically Sig lisa by Thom Boston M.D. on 11/24/2019 at 0235 Reported and signed by: Thom Boston M.D. CC: Cr Regan MD Technologist: Luna Edmondson Trnscrd Date/Time/By: 11/24/2019 (0235) : By: [email or web address] Orig P rint D/T: S: 11/24/2019 (0238) PAGE 1 Signed Report BASIC METABOLIC [id number] 06:58:00* Test Item Value Reference Range Interpretation Comments SODIUM (test code = NA) 143 mmol/L 136-145 N POTASSIUM (test code = K) 3.4 mmol/L 3.5-5.1 L CHLORIDE (test code = CL) 108.0 mmol/L 98-107 H CARBON DIOXIDE (test code = CO2) 28.0 mmol/L 21-32 N ANION GAP (test code = GAP) 10.4 10-20 N GLUCOSE (test code = GLU) 87 mg/dL 74-106 N BLOOD UREA NITROGEN (test code = BUN) 6 mg/dL 7-18 L GLOMERULAR FILTRATION RATE (test code = GFR) > 60 mL/min >=60 Estimated GFR by using Modified MDRD formula.Chronic kidney disease is defined as either kidney damageor GFR <60 mL/min/1.73 m2 for >3 months. CREATININE (test code = CREAT) 0.40 mg/dL 0.7-1.3 L BUN/CREATININE RATIO (test code = BUN/CREA) 14.9 10-20 N CALCIUM (test code = CA) 9.1 mg/dL 8.5-10.1 N BASIC METABOLIC [id number] 06:53:00* Test Item Value Reference Range Interpretation Comments SODIUM (test code = NA) 143 mmol/L 136-145 N POTASSIUM (test code = K) 3.4 mmol/L 3.5-5.1 L CHLORIDE (test code = CL) 108.0 mmol/L 98-107 H CARBON DIOXIDE (test code = CO2) mmol/L 21-32 ANION GAP (test code = GAP) 10-20 GLUCOSE (test code = GLU) mg/dL 74-106 BLOOD UREA NITROGEN (test code = BUN) mg/dL 7-18 GLOMERULAR FILTRATION RATE (test code = GFR) mL/min >=60 CREATININE (test code = CREAT) mg/dL 0.7-1.3 BUN/CREATININE RATIO (test code = BUN/CREA) 10-20 CALCIUM (test code = CA) mg/dL 8.5-10.1 BASIC METABOLIC [id number] 08:41:00* Test Item Value Reference Range Interpretation Comments SODIUM (test code = NA) 146 mmol/L 136-145 H POTASSIUM (test code = K) 3.2 mmol/L 3.5-5.1 L CHLORIDE (test code = CL) 109.0 mmol/L 98-107 H CARBON DIOXIDE (test code = CO2) 27.0 mmol/L 21-32 N ANION GAP (test code = GAP) 13.2 10-20 N GLUCOSE (test code = GLU) 72 mg/dL 74-106 L BLOOD UREA NITROGEN (test code = BUN) 5 mg/dL 7-18 L GLOMERULAR FILTRATION RATE (test code = GFR) > 60 mL/min >=60 Estimated GFR by using Modified MDRD formula.Chronic kidney disease is defined as either kidney damageor GFR <60 mL/min/1.73 m2 for >3 months. CREATININE (test code = CREAT) 0.50 mg/dL 0.7-1.3 L BUN/CREATININE RATIO (test code = BUN/CREA) 10.4 10-20 N CALCIUM (test code = CA) 8.9 mg/dL 8.5-10.1 N REFUSED LABS NOTIFIED NURSE [id number] BASIC METABOLIC PANEL 2019-10-31 08:23:00* Test Item Value Reference Range Interpretation Comments SODIUM (test code = NA) 146 mmol/L 136-145 H POTASSIUM (test code = K) 3.2 mmol/L 3.5-5.1 L CHLORIDE (test code = CL) 109.0 mmol/L 98-107 H CARBON DIOXIDE (test code = CO2) mmol/L 21-32 ANION GAP (test code = GAP) 10-20 GLUCOSE (test code = GLU) mg/dL 74-106 BLOOD UREA NITROGEN (test code = BUN) mg/dL 7-18 GLOMERULAR FILTRATION RATE (test code = GFR) mL/min >=60 CREATININE (test code = CREAT) mg/dL 0.7-1.3 BUN/CREATININE RATIO (test code = BUN/CREA) 10-20 CALCIUM (test code = CA) mg/dL 8.5-10.1 REFUSED LABS NOTIFIED NURSE [id number] B-TYPE NATRIURETIC [id number] 08:20:00* Test Item Value Reference Range Interpretation Comments B-TYPE NATRIURETIC PEPTIDE (test code = BNP) 33.00 pgram/mL 0-100 N PROTHROMBIN [id number] 08:15:00* Test Item Value Reference Range Interpretation Comments PROTHROMBIN TIME PATIENT (test code = PTP) 15.0 seconds 9.0-14.0 H INTERNATIONAL NORMAL RATIO (test code = INR) 1.3 0.8-1.2 H The therapeutic range for oral anticoagulant therapy formost indications is an international normalized ratio (INR)of between 2.0 and 3.0. The recommended therapeutic INRrange for various clinical situations is listed below: Clinical Situation INR range Pulmonary e mbolism treatment (2.0-3.0)Venous thrombosis treatmentVenous thrombosis prophylaxis (high risk surgery)Prevention of systemic embolism from: Acute myocardial infarction Valvular heart disease Atrial fibrillation Mechanical prosthetic heart valves (2.5-3.5) PT REFUSED LABS NOTIFIED NURSE [id number] IS PATIENT ON ANTICO AGULANTS? NCOMMENTS TO CONSTRUCTION ENGINEERING MANAGER: NEED FOR SURGERY 10/31/19ROMBOPLASTIN TIME [id number] 08:15:00* Test Item Value Reference Range Interpretation Comments THROMBOPLASTIN TIME PARTIAL (test code = PTT) 34.4 seconds 23.0-37. 0 N PT REFUSED LABS NOTIFIED NURSE [id number] IS PATIENT ON ANTICO AGULANTS? NCOMMENTS TO CONSTRUCTION ENGINEERING MANAGER: NEED FOR SURGERY 10/31/19CBC W/AUTO DIFF 2019-10-31 07:48:00* Test Item Value Reference Range Interpretation Comments WHITE BLOOD CELL (test code = WBC) 6.9 K/mm3 4.5-12.5 N RED BLOOD CELL (test code = RBC) 4.10 mill/mm3 4.0-5.8 N HEMOGLOBIN (test code = HGB) 12.7 gram/dL 13.0-17.5 L HEMATOCRIT (test code = HCT) 38.3 % 42.0-52.0 L MEAN CELL VOLUME (test code = MCV) 93.4 fL 80-98 N MEAN CELL HGB (test code = MCH) 31.0 picogram 27.0-33.0 N MEAN CELL HGB CONCETRATION (test code = MCHC) 33.2 gram/dL 33.0-36. 0 N RED CELL DISTRIBUTION WIDTH (test code = RDW) 14.0 % 11.6-16. 2 N RED CELL DISTRIBUTION WIDTH SD (test code = RDW-SD) 47.3 fL 37 .0-51.0 N PLATELET COUNT (test code = PLT) 101 K/mm3 150-450 L MEAN PLATELET VOLUME (test code = MPV) 14.4 fL 6.7-11.0 H NEUTROPHIL % (test code = NT%) 70.5 % 39.0-69.0 H IMMATURE GRANULOCYTE % (test code = IG%) 0.1 % 0.0-5.0 N LYMPHOCYTE % (test code = LY%) 17.9 % 25.0-55.0 L MONOCYTE % (test code = MO%) 8.8 % 0.0-10.0 N EOSINOPHIL % (test code = EO%) 2.3 % 0.0-5.0 N BASOPHIL % (test code = BA%) 0.4 % 0.0-1.0 N NUCLEATED RBC % (test code = NRBC%) 0.0 % 0-0 N NEUTROPHIL # (test code = NT#) 4.86 K/mm3 1.8-7.7 N IMMATURE GRANULOCYTE # (test code = IG#) 0.01 x10 3/uL 0-0.03 N LYMPHOCYTE # (test code = LY#) 1.24 K/mm3 1.0-5.0 N MONOCYTE # (test code = MO#) 0.61 K/mm3 0-0.8 N EOSINOPHIL # (test code = EO#) 0.16 K/mm3 0.0-0.5 N BASOPHIL # (test code = BA#) 0.03 K/mm3 0.0-0.2 N NUCLEATED RBC # (test code = NRBC#) 0.00 K/mm3 0.0-0.1 N PT REFUSED LABS NOTIFIED NURSE [id number] 10/30/200054CBC W/AUTO DIFF 2019-10-30 07:36:00* Test Item Value Reference Range Interpretation Comments WHITE BLOOD CELL (test code = WBC) 7.0 K/mm3 4.5-12.5 N RED BLOOD CELL (test code = RBC) 4.06 mill/mm3 4.0-5.8 N HEMOGLOBIN (test code = HGB) 12.4 gram/dL 13.0-17.5 L HEMATOCRIT (test code = HCT) 38.2 % 42.0-52.0 L MEAN CELL VOLUME (test code = MCV) 94.1 fL 80-98 N MEAN CELL HGB (test code = MCH) 30.5 picogram 27.0-33.0 N MEAN CELL HGB CONCETRATION (test code = MCHC) 32.5 gram/dL 33.0-36. 0 L RED CELL DISTRIBUTION WIDTH (test code = RDW) 13.9 % 11.6-16. 2 N RED CELL DISTRIBUTION WIDTH SD (test code = RDW-SD) 47.8 fL 37 .0-51.0 N PLATELET COUNT (test code = PLT) 89 K/mm3 150-450 L MEAN PLATELET VOLUME (test code = MPV) 14.1 fL 6.7-11.0 H NEUTROPHIL % (test code = NT%) 74.0 % 39.0-69.0 H IMMATURE GRANULOCYTE % (test code = IG%) 0.3 % 0.0-5.0 N LYMPHOCYTE % (test code = LY%) 15.9 % 25.0-55.0 L MONOCYTE % (test code = MO%) 6.3 % 0.0-10.0 N EOSINOPHIL % (test code = EO%) 2.9 % 0.0-5.0 N BASOPHIL % (test code = BA%) 0.6 % 0.0-1.0 N NUCLEATED RBC % (test code = NRBC%) 0.0 % 0-0 N NEUTROPHIL # (test code = NT#) 5.18 K/mm3 1.8-7.7 N IMMATURE GRANULOCYTE # (test code = IG#) 0.02 x10 3/uL 0-0.03 N LYMPHOCYTE # (test code = LY#) 1.11 K/mm3 1.0-5.0 N MONOCYTE # (test code = MO#) 0.44 K/mm3 0-0.8 N EOSINOPHIL # (test code = EO#) 0.20 K/mm3 0.0-0.5 N BASOPHIL # (test code = BA#) 0.04 K/mm3 0.0-0.2 N NUCLEATED RBC # (test code = NRBC#) 0.00 K/mm3 0.0-0.1 N MANUAL DIFF REQUIRED (test code = MDIFF) NO, ONLY SCAN NEEDED DIFFERENTIAL [id number] 07:36:00* Test Item Value Reference Range Interpretation Comments STAIN ACCEPTABILITY (test code = STN ACCEPTABLE) STAIN ACCEPTABLE PLATELET ESTIMATE (test code = PLTEST) DECREASED PLATELET MORPHOLOGY (test code = PLTMORPH) SIZE VARIABLE COMPREHENSIVE METABOLIC [id number] 07:31:00* Test Item Value Reference Range Interpretation Comments SODIUM (test code = NA) 147 mmol/L 136-145 H POTASSIUM (test code = K) 3.5 mmol/L 3.5-5.1 N CHLORIDE (test code = CL) 111.0 mmol/L 98-107 H CARBON DIOXIDE (test code = CO2) 26.0 mmol/L 21-32 N ANION GAP (test code = GAP) 13.5 10-20 N GLUCOSE (test code = GLU) 91 mg/dL 74-106 N BLOOD UREA NITROGEN (test code = BUN) 8 mg/dL 7-18 N GLOMERULAR FILTRATION RATE (test code = GFR) > 60 mL/min >=60 Estimated GFR by using Modified MDRD formula.Chronic kidney disease is defined as either kidney damageor GFR <60 mL/min/1.73 m2 for >3 months. CREATININE (test code = CREAT) 0.40 mg/dL 0.7-1.3 L BUN/CREATININE RATIO (test code = BUN/CREA) 17.8 10-20 N TOTAL PROTEIN (test code = PROT) 7.1 gram/dL 6.4-8.2 N ALBUMIN (test code = ALB) 3.2 g/dL 3.4-5.0 L GLOBULIN (test code = GLOB) 3.9 gram/dL 2.7-4.2 N ALBUMIN/GLOBULIN RATIO (test code = A/G) 0.8 0.75-1.50 N CALCIUM (test code = CA) 9.0 mg/dL 8.5-10.1 N BILIRUBIN TOTAL (test code = BILT) 1.40 mg/dL 0.0-1.0 H SGOT/AST (test code = AST) 62 IUnit/L 15-37 H SGPT/ALT (test code = ALT) 136 IUnit/L 12-78 H ALKALINE PHOSPHATASE TOTAL (test code = ALKP) 203 IUnit/L 45-117 H Note change in reference range due to change in reagent. COMPREHENSIVE METABOLIC [id number] 07:03:00* Test Item Value Reference Range Interpretation Comments SODIUM (test code = NA) 147 mmol/L 136-145 H POTASSIUM (test code = K) 3.5 mmol/L 3.5-5.1 N CHLORIDE (test code = CL) 111.0 mmol/L 98-107 H CARBON DIOXIDE (test code = CO2) mmol/L 21-32 ANION GAP (test code = GAP) 10-20 GLUCOSE (test code = GLU) mg/dL 74-106 BLOOD UREA NITROGEN (test code = BUN) mg/dL 7-18 GLOMERULAR FILTRATION RATE (test code = GFR) mL/min >=60 CREATININE (test code = CREAT) mg/dL 0.7-1.3 BUN/CREATININE RATIO (test code = BUN/CREA) 10-20 TOTAL PROTEIN (test code = PROT) gram/dL 6.4-8.2 ALBUMIN (test code = ALB) g/dL 3.4-5.0 GLOBULIN (test code = GLOB) gram/dL 2.7-4.2 ALBUMIN/GLOBULIN RATIO (test code = A/G) 0.75-1.50 CALCIUM (test code = CA) mg/dL 8.5-10.1 BILIRUBIN TOTAL (test code = BILT) mg/dL 0.0-1.0 SGOT/AST (test code = AST) IUnit/L 15-37 SGPT/ALT (test code = ALT) IUnit/L 12-78 ALKALINE PHOSPHATASE TOTAL (test code = ALKP) IUnit/L 45-117 CBC W/AUTO [id number] 06:47:00* Test Item Value Reference Range Interpretation Comments WHITE BLOOD CELL (test code = WBC) 7.0 K/mm3 4.5-12.5 N RED BLOOD CELL (test code = RBC) 4.06 mill/mm3 4.0-5.8 N HEMOGLOBIN (test code = HGB) 12.4 gram/dL 13.0-17.5 L HEMATOCRIT (test code = HCT) 38.2 % 42.0-52.0 L MEAN CELL VOLUME (test code = MCV) 94.1 fL 80-98 N MEAN CELL HGB (test code = MCH) 30.5 picogram 27.0-33.0 N MEAN CELL HGB CONCETRATION (test code = MCHC) 32.5 gram/dL 33.0-36. 0 L RED CELL DISTRIBUTION WIDTH (test code = RDW) 13.9 % 11.6-16. 2 N RED CELL DISTRIBUTION WIDTH SD (test code = RDW-SD) 47.8 fL 37 .0-51.0 N PLATELET COUNT (test code = PLT) 89 K/mm3 150-450 L MEAN PLATELET VOLUME (test code = MPV) 14.1 fL 6.7-11.0 H NEUTROPHIL % (test code = NT%) 74.0 % 39.0-69.0 H IMMATURE GRANULOCYTE % (test code = IG%) 0.3 % 0.0-5.0 N LYMPHOCYTE % (test code = LY%) 15.9 % 25.0-55.0 L MONOCYTE % (test code = MO%) 6.3 % 0.0-10.0 N EOSINOPHIL % (test code = EO%) 2.9 % 0.0-5.0 N BASOPHIL % (test code = BA%) 0.6 % 0.0-1.0 N NUCLEATED RBC % (test code = NRBC%) 0.0 % 0-0 N NEUTROPHIL # (test code = NT#) 5.18 K/mm3 1.8-7.7 N IMMATURE GRANULOCYTE # (test code = IG#) 0.02 x10 3/uL 0-0.03 N LYMPHOCYTE # (test code = LY#) 1.11 K/mm3 1.0-5.0 N MONOCYTE # (test code = MO#) 0.44 K/mm3 0-0.8 N EOSINOPHIL # (test code = EO#) 0.20 K/mm3 0.0-0.5 N BASOPHIL # (test code = BA#) 0.04 K/mm3 0.0-0.2 N NUCLEATED RBC # (test code = NRBC#) 0.00 K/mm3 0.0-0.1 N MANUAL DIFF REQUIRED (test code = MDIFF) NO, ONLY SCAN NEEDED DIFFERENTIAL [id number] 06:47:00* Test Item Value Reference Range Interpretation Comments STAIN ACCEPTABILITY (test code = STN ACCEPTABLE) CABOT RINGS (test code = CAB) MORPHOLOGY COMMENT (test code = MOC) PLATELET ESTIMATE (test code = PLTEST) PLATELET MORPHOLOGY (test code = PLTMORPH) CBC W/AUTO [id number] 06:47:00* Test Item Value Reference Range Interpretation Comments WHITE BLOOD CELL (test code = WBC) 7.0 K/mm3 4.5-12.5 N RED BLOOD CELL (test code = RBC) 4.06 mill/mm3 4.0-5.8 N HEMOGLOBIN (test code = HGB) 12.4 gram/dL 13.0-17.5 L HEMATOCRIT (test code = HCT) 38.2 % 42.0-52.0 L MEAN CELL VOLUME (test code = MCV) 94.1 fL 80-98 N MEAN CELL HGB (test code = MCH) 30.5 picogram 27.0-33.0 N MEAN CELL HGB CONCETRATION (test code = MCHC) 32.5 gram/dL 33.0-36. 0 L RED CELL DISTRIBUTION WIDTH (test code = RDW) 13.9 % 11.6-16. 2 N RED CELL DISTRIBUTION WIDTH SD (test code = RDW-SD) 47.8 fL 37 .0-51.0 N PLATELET COUNT (test code = PLT) 89 K/mm3 150-450 L MEAN PLATELET VOLUME (test code = MPV) 14.1 fL 6.7-11.0 H NEUTROPHIL % (test code = NT%) 74.0 % 39.0-69.0 H IMMATURE GRANULOCYTE % (test code = IG%) 0.3 % 0.0-5.0 N LYMPHOCYTE % (test code = LY%) 15.9 % 25.0-55.0 L MONOCYTE % (test code = MO%) 6.3 % 0.0-10.0 N EOSINOPHIL % (test code = EO%) 2.9 % 0.0-5.0 N BASOPHIL % (test code = BA%) 0.6 % 0.0-1.0 N NUCLEATED RBC % (test code = NRBC%) 0.0 % 0-0 N NEUTROPHIL # (test code = NT#) 5.18 K/mm3 1.8-7.7 N IMMATURE GRANULOCYTE # (test code = IG#) 0.02 x10 3/uL 0-0.03 N LYMPHOCYTE # (test code = LY#) 1.11 K/mm3 1.0-5.0 N MONOCYTE # (test code = MO#) 0.44 K/mm3 0-0.8 N EOSINOPHIL # (test code = EO#) 0.20 K/mm3 0.0-0.5 N BASOPHIL # (test code = BA#) 0.04 K/mm3 0.0-0.2 N NUCLEATED RBC # (test code = NRBC#) 0.00 K/mm3 0.0-0.1 N MANUAL DIFF REQUIRED (test code = MDIFF) NO, ONLY SCAN NEEDED DIFFERENTIAL [id number] 06:47:00* Test Item Value Reference Range Interpretation Comments STAIN ACCEPTABILITY (test code = STN ACCEPTABLE) MORPHOLOGY COMMENT (test code = MOC) PLATELET ESTIMATE (test code = PLTEST) PLATELET MORPHOLOGY (test code = PLTMORPH) CBC W/AUTO [id number] 06:46:00* Test Item Value Reference Range Interpretation Comments WHITE BLOOD CELL (test code = WBC) 7.0 K/mm3 4.5-12.5 N RED BLOOD CELL (test code = RBC) 4.06 mill/mm3 4.0-5.8 N HEMOGLOBIN (test code = HGB) 12.4 gram/dL 13.0-17.5 L HEMATOCRIT (test code = HCT) 38.2 % 42.0-52.0 L MEAN CELL VOLUME (test code = MCV) 94.1 fL 80-98 N MEAN CELL HGB (test code = MCH) 30.5 picogram 27.0-33.0 N MEAN CELL HGB CONCETRATION (test code = MCHC) 32.5 gram/dL 33.0-36. 0 L RED CELL DISTRIBUTION WIDTH (test code = RDW) 13.9 % 11.6-16. 2 N RED CELL DISTRIBUTION WIDTH SD (test code = RDW-SD) 47.8 fL 37 .0-51.0 N PLATELET COUNT (test code = PLT) 89 K/mm3 150-450 L MEAN PLATELET VOLUME (test code = MPV) 14.1 fL 6.7-11.0 H NEUTROPHIL % (test code = NT%) 74.0 % 39.0-69.0 H IMMATURE GRANULOCYTE % (test code = IG%) 0.3 % 0.0-5.0 N LYMPHOCYTE % (test code = LY%) 15.9 % 25.0-55.0 L MONOCYTE % (test code = MO%) 6.3 % 0.0-10.0 N EOSINOPHIL % (test code = EO%) 2.9 % 0.0-5.0 N BASOPHIL % (test code = BA%) 0.6 % 0.0-1.0 N NUCLEATED RBC % (test code = NRBC%) 0.0 % 0-0 N NEUTROPHIL # (test code = NT#) 5.18 K/mm3 1.8-7.7 N IMMATURE GRANULOCYTE # (test code = IG#) 0.02 x10 3/uL 0-0.03 N LYMPHOCYTE # (test code = LY#) 1.11 K/mm3 1.0-5.0 N MONOCYTE # (test code = MO#) 0.44 K/mm3 0-0.8 N EOSINOPHIL # (test code = EO#) 0.20 K/mm3 0.0-0.5 N BASOPHIL # (test code = BA#) 0.04 K/mm3 0.0-0.2 N NUCLEATED RBC # (test code = NRBC#) 0.00 K/mm3 0.0-0.1 N MANUAL DIFF REQUIRED (test code = MDIFF) NO, ONLY SCAN NEEDED DIFFERENTIAL [id number] 06:46:00* Test Item Value Reference Range Interpretation Comments STAIN ACCEPTABILITY (test code = STN ACCEPTABLE) CABOT RINGS (test code = CAB) MORPHOLOGY COMMENT (test code = MOC) PLATELET ESTIMATE (test code = PLTEST) PLATELET MORPHOLOGY (test code = PLTMORPH) CBC W/AUTO [id number] 06:46:00* Test Item Value Reference Range Interpretation Comments WHITE BLOOD CELL (test code = WBC) 7.0 K/mm3 4.5-12.5 N RED BLOOD CELL (test code = RBC) 4.06 mill/mm3 4.0-5.8 N HEMOGLOBIN (test code = HGB) 12.4 gram/dL 13.0-17.5 L HEMATOCRIT (test code = HCT) 38.2 % 42.0-52.0 L MEAN CELL VOLUME (test code = MCV) 94.1 fL 80-98 N MEAN CELL HGB (test code = MCH) 30.5 picogram 27.0-33.0 N MEAN CELL HGB CONCETRATION (test code = MCHC) 32.5 gram/dL 33.0-36. 0 L RED CELL DISTRIBUTION WIDTH (test code = RDW) 13.9 % 11.6-16. 2 N RED CELL DISTRIBUTION WIDTH SD (test code = RDW-SD) 47.8 fL 37 .0-51.0 N PLATELET COUNT (test code = PLT) 89 K/mm3 150-450 L MEAN PLATELET VOLUME (test code = MPV) 14.1 fL 6.7-11.0 H NEUTROPHIL % (test code = NT%) 74.0 % 39.0-69.0 H IMMATURE GRANULOCYTE % (test code = IG%) 0.3 % 0.0-5.0 N LYMPHOCYTE % (test code = LY%) 15.9 % 25.0-55.0 L MONOCYTE % (test code = MO%) 6.3 % 0.0-10.0 N EOSINOPHIL % (test code = EO%) 2.9 % 0.0-5.0 N BASOPHIL % (test code = BA%) 0.6 % 0.0-1.0 N NUCLEATED RBC % (test code = NRBC%) 0.0 % 0-0 N NEUTROPHIL # (test code = NT#) 5.18 K/mm3 1.8-7.7 N IMMATURE GRANULOCYTE # (test code = IG#) 0.02 x10 3/uL 0-0.03 N LYMPHOCYTE # (test code = LY#) 1.11 K/mm3 1.0-5.0 N MONOCYTE # (test code = MO#) 0.44 K/mm3 0-0.8 N EOSINOPHIL # (test code = EO#) 0.20 K/mm3 0.0-0.5 N BASOPHIL # (test code = BA#) 0.04 K/mm3 0.0-0.2 N NUCLEATED RBC # (test code = NRBC#) 0.00 K/mm3 0.0-0.1 N MANUAL DIFF REQUIRED (test code = MDIFF) NO, ONLY SCAN NEEDED DIFFERENTIAL [id number] 06:46:00* Test Item Value Reference Range Interpretation Comments STAIN ACCEPTABILITY (test code = STN ACCEPTABLE) CABOT RINGS (test code = CAB) MORPHOLOGY COMMENT (test code = MOC) PLATELET ESTIMATE (test code = PLTEST) PLATELET MORPHOLOGY (test code = PLTMORPH) BASIC METABOLIC [id number] 06:02:00* Test Item Value Reference Range Interpretation Comments SODIUM (test code = NA) 149 mmol/L 136-145 H POTASSIUM (test code = K) 3.1 mmol/L 3.5-5.1 L CHLORIDE (test code = CL) 117.0 mmol/L 98-107 H CARBON DIOXIDE (test code = CO2) 27.0 mmol/L 21-32 N ANION GAP (test code = GAP) 8.1 10-20 L GLUCOSE (test code = GLU) 93 mg/dL 74-106 N BLOOD UREA NITROGEN (test code = BUN) 14 mg/dL 7-18 N GLOMERULAR FILTRATION RATE (test code = GFR) > 60 mL/min >=60 Estimated GFR by using Modified MDRD formula.Chronic kidney disease is defined as either kidney damageor GFR <60 mL/min/1.73 m2 for >3 months. CREATININE (test code = CREAT) 0.50 mg/dL 0.7-1.3 L BUN/CREATININE RATIO (test code = BUN/CREA) 27.2 10-20 H CALCIUM (test code = CA) 9.2 mg/dL 8.5-10.1 N BASIC METABOLIC [id number] 05:56:00* Test Item Value Reference Range Interpretation Comments SODIUM (test code = NA) 149 mmol/L 136-145 H POTASSIUM (test code = K) 3.1 mmol/L 3.5-5.1 L CHLORIDE (test code = CL) 117.0 mmol/L 98-107 H CARBON DIOXIDE (test code = CO2) mmol/L 21-32 ANION GAP (test code = GAP) 10-20 GLUCOSE (test code = GLU) mg/dL 74-106 BLOOD UREA NITROGEN (test code = BUN) mg/dL 7-18 GLOMERULAR FILTRATION RATE (test code = GFR) mL/min >=60 CREATININE (test code = CREAT) mg/dL 0.7-1.3 BUN/CREATININE RATIO (test code = BUN/CREA) 10-20 CALCIUM (test code = CA) mg/dL 8.5-10.1 Coronavirus 2019 nCoV [id number] 10:36:00* Test Item Value Reference Range Interpretation Comments Coronavirus 2019 nCoV Bedside (test code = COVNONPUIBED) Negative PROTHROMBIN [id number] 10:29:00* Test Item Value Reference Range Interpretation Comments PROTHROMBIN TIME PATIENT (test code = PTP) 14.1 seconds 9.0-14.0 H INTERNATIONAL NORMAL RATIO (test code = INR) 1.2 0.8-1.2 N The therapeutic range for oral anticoagulant therapy formost indications is an international normalized ratio (INR)of between 2.0 and 3.0. The recommended therapeutic INRrange for various clinical situations is listed below: Clinical Situation INR range Pulmonary e mbolism treatment (2.0-3.0)Venous thrombosis treatmentVenous thrombosis prophylaxis (high risk surgery)Prevention of systemic embolism from: Acute myocardial infarction Valvular heart disease Atrial fibrillation Mechanical prosthetic heart valves (2.5-3.5) IS PATIENT ON ANTICOAGULANTS? NTHROMBOPLASTIN TIME [id number] 10:29:00* Test Item Value Reference Range Interpretation Comments THROMBOPLASTIN TIME PARTIAL (test code = PTT) 33.6 seconds 23.0-37. 0 N IS PATIENT ON ANTICOAGULANTS? NCOMPREHENSIVE METABOLIC [id number] 10:17:00 * Test Item Value Reference Range Interpretation Comments SODIUM (test code = NA) 153 mmol/L 136-145 H POTASSIUM (test code = K) 3.5 mmol/L 3.5-5.1 N CHLORIDE (test code = CL) 118.0 mmol/L 98-107 H CARBON DIOXIDE (test code = CO2) 27.0 mmol/L 21-32 N ANION GAP (test code = GAP) 11.5 10-20 N GLUCOSE (test code = GLU) 87 mg/dL 74-106 N BLOOD UREA NITROGEN (test code = BUN) 21 mg/dL 7-18 H GLOMERULAR FILTRATION RATE (test code = GFR) > 60 mL/min >=60 Estimated GFR by using Modified MDRD formula.Chronic kidney disease is defined as either kidney damageor GFR <60 mL/min/1.73 m2 for >3 months. CREATININE (test code = CREAT) 0.60 mg/dL 0.7-1.3 L BUN/CREATININE RATIO (test code = BUN/CREA) 37.5 10-20 H TOTAL PROTEIN (test code = PROT) 7.9 gram/dL 6.4-8.2 N ALBUMIN (test code = ALB) 3.4 g/dL 3.4-5.0 N GLOBULIN (test code = GLOB) 4.5 gram/dL 2.7-4.2 H ALBUMIN/GLOBULIN RATIO (test code = A/G) 0.8 0.75-1.50 N CALCIUM (test code = CA) 9.3 mg/dL 8.5-10.1 N BILIRUBIN TOTAL (test code = BILT) 0.90 mg/dL 0.0-1.0 N SGOT/AST (test code = AST) 62 IUnit/L 15-37 H SGPT/ALT (test code = ALT) 128 IUnit/L 12-78 H ALKALINE PHOSPHATASE TOTAL (test code = ALKP) 203 IUnit/L 45-117 H Note change in reference range due to change in reagent. CBC W/AUTO [id number] 09:43:00* Test Item Value Reference Range Interpretation Comments WHITE BLOOD CELL (test code = WBC) 5.4 K/mm3 4.5-12.5 N RED BLOOD CELL (test code = RBC) 4.41 mill/mm3 4.0-5.8 N HEMOGLOBIN (test code = HGB) 13.3 gram/dL 13.0-17.5 N HEMATOCRIT (test code = HCT) 41.1 % 42.0-52.0 L MEAN CELL VOLUME (test code = MCV) 93.2 fL 80-98 N MEAN CELL HGB (test code = MCH) 30.2 picogram 27.0-33.0 N MEAN CELL HGB CONCETRATION (test code = MCHC) 32.4 gram/dL 33.0-36. 0 L RED CELL DISTRIBUTION WIDTH (test code = RDW) 13.8 % 11.6-16. 2 N RED CELL DISTRIBUTION WIDTH SD (test code = RDW-SD) 47.0 fL 37 .0-51.0 N PLATELET COUNT (test code = PLT) 106 K/mm3 150-450 L MEAN PLATELET VOLUME (test code = MPV) 13.9 fL 6.7-11.0 H NEUTROPHIL % (test code = NT%) 58.8 % 39.0-69.0 N IMMATURE GRANULOCYTE % (test code = IG%) 0.7 % 0.0-5.0 N LYMPHOCYTE % (test code = LY%) 28.4 % 25.0-55.0 N MONOCYTE % (test code = MO%) 9.3 % 0.0-10.0 N EOSINOPHIL % (test code = EO%) 2.2 % 0.0-5.0 N BASOPHIL % (test code = BA%) 0.6 % 0.0-1.0 N NUCLEATED RBC % (test code = NRBC%) 0.0 % 0-0 N NEUTROPHIL # (test code = NT#) 3.15 K/mm3 1.8-7.7 N IMMATURE GRANULOCYTE # (test code = IG#) 0.04 x10 3/uL 0-0.03 H LYMPHOCYTE # (test code = LY#) 1.52 K/mm3 1.0-5.0 N MONOCYTE # (test code = MO#) 0.50 K/mm3 0-0.8 N EOSINOPHIL # (test code = EO#) 0.12 K/mm3 0.0-0.5 N BASOPHIL # (test code = BA#) 0.03 K/mm3 0.0-0.2 N NUCLEATED RBC # (test code = NRBC#) 0.00 K/mm3 0.0-0.1 N MANUAL DIFF REQUIRED (test code = MDIFF) NO [id number] 20:41:00* Test Item Value Reference Range Interpretation Comments GLUBED (test code = GLUBED) 106 mg/dL 74-106 N Performed by certified concrete pile driver operator at [facility] ABDOMEN-1VIEW (KUB)2019-10-13 10:47:00 [place] [address] Patient Name: VANESSA KHOURY MR #: [id number] : 1975 Age/Sex: 44/M Req #: [id number] Adm Physician: Ordered by: GISELA LAYNE DO Report #: [id number] Location: ER Room/Bed: Procedure: [id number] DX/ABDOMEN-1V IEW (KU) Exam Date: 10/13/19 Exam Time: 919 REPORT STATUS: Signed EXAM: ABDOMEN-1 VIEW (KUB) DATE: 10/13/2019 9:46 AM INDICATION: Gastrostomy replacemen t COMPARISON: None FINDINGS: Single AP view of the abdomen was obt ained after the administration of Gastrografin via the indwelling gastrostomy catheter. A boring machine set up operator image was not obtained. There is contrast opacification of the gastric folds and proximal small bowel. No extraluminal contrast mater ial is identified. Bowel gas pattern appears nonobstructive. No abnormal intra -abdominal calcification is appreciated. No acute osseous abnormality identifi ed. IMPRESSION: Intraluminal position of gastrostomy catheter with opacification of the stomach and proximal small bowel. Signed by: Dr. Sabrina Hosuer MD on 10/13/2019 10:49 AM Dictated By: JUNIOR HOUSER MD Electron ically Signed By: JUNIOR HOUSER MD on 10/13/19 1049 Transcribed By: SARAH on 0 10/13/19 1049 COPY TO: GISELA LAYNE DO - CONT INJ TEOFILO/ RISSA/ JAlin/ [id number] 09:47:00 FAX: Marcelina Younger DO [facility]: [address]: REG Name: VANESSA ANDREA [facility] : [birth year] Age/S: 44/M [address] [facility] Unit #: [id number] Loc: [place] [address] Phys: Marcelina Younger DO Acct: [id number] Dis Date: Status: REG ER PHONE #: [phone] Exam Date: 10/09/2019 09 FAX #: [phone] Reason: peg tube replacement EXAMS: CPT CODE: [id number] CONT INJ GS/ RISSA/ MEGAN/ G G 42852 HISTORY: PEG tube placement. COMPARISON: CT scan from September 10, 2019. Location: [facility]. Executive Director Of Marketing view of the abdomen demonstrating gastrostomy tube in the left upper quadrant. Post contrast administration via gastrostomy t ube demonstrated opacification of the gastric fundus. The balloon appears to be at the gastric body level. IMPRESSION: Gastrostomy tube tip within the gastric body level with opacification of the gastric fundus after contrast administration. Electronica lly Signed by Kiana Givens on 10/09/2019 at 0947 Re ported and signed by: Luke Givens M.D. CC: Topher Younger DO Technologist: ZENA GRAMAJO RT(R) Trnscrd Date/Time/By: 10/09/2019 (946) : By: yamile [email or web address] Orig Print D/T: S: 10/09/2019 (0951) P AGE 1 Signed Report BASIC METABOLIC [id number] 05:25:00* Test Item Value Reference Range Interpretation Comments SODIUM (test code = NA) 141 mmol/L 136-145 N POTASSIUM (test code = K) 3.6 mmol/L 3.5-5.1 N CHLORIDE (test code = CL) 108.0 mmol/L 98-107 H CARBON DIOXIDE (test code = CO2) 26.0 mmol/L 21-32 N ANION GAP (test code = GAP) 10.6 10-20 N GLUCOSE (test code = GLU) 120 mg/dL 74-106 H BLOOD UREA NITROGEN (test code = BUN) 7 mg/dL 7-18 N GLOMERULAR FILTRATION RATE (test code = GFR) > 60 mL/min >=60 Estimated GFR by using Modified MDRD formula.Chronic kidney disease is defined as either kidney damageor GFR <60 mL/min/1.73 m2 for >3 months. CREATININE (test code = CREAT) 0.40 mg/dL 0.7-1.3 L BUN/CREATININE RATIO (test code = BUN/CREA) 17.5 10-20 N CALCIUM (test code = CA) 9.0 mg/dL 8.5-10.1 N BASIC METABOLIC [id number] 05:17:00* Test Item Value Reference Range Interpretation Comments SODIUM (test code = NA) 141 mmol/L 136-145 N POTASSIUM (test code = K) 3.6 mmol/L 3.5-5.1 N CHLORIDE (test code = CL) 108.0 mmol/L 98-107 H CARBON DIOXIDE (test code = CO2) mmol/L 21-32 ANION GAP (test code = GAP) 10-20 GLUCOSE (test code = GLU) mg/dL 74-106 BLOOD UREA NITROGEN (test code = BUN) mg/dL 7-18 GLOMERULAR FILTRATION RATE (test code = GFR) mL/min >=60 CREATININE (test code = CREAT) mg/dL 0.7-1.3 BUN/CREATININE RATIO (test code = BUN/CREA) 10-20 CALCIUM (test code = CA) mg/dL 8.5-10.1 BASIC METABOLIC [id number] 14:23:00* Test Item Value Reference Range Interpretation Comments SODIUM (test code = NA) 140 mmol/L 136-145 N POTASSIUM (test code = K) 3.3 mmol/L 3.5-5.1 L CHLORIDE (test code = CL) 107.0 mmol/L 98-107 N CARBON DIOXIDE (test code = CO2) 26.0 mmol/L 21-32 N ANION GAP (test code = GAP) 10.3 10-20 N GLUCOSE (test code = GLU) 119 mg/dL 74-106 H BLOOD UREA NITROGEN (test code = BUN) 7 mg/dL 7-18 N GLOMERULAR FILTRATION RATE (test code = GFR) > 60 mL/min >=60 Estimated GFR by using Modified MDRD formula.Chronic kidney disease is defined as either kidney damageor GFR <60 mL/min/1.73 m2 for >3 months. CREATININE (test code = CREAT) 0.40 mg/dL 0.7-1.3 L BUN/CREATININE RATIO (test code = BUN/CREA) 17.5 10-20 N CALCIUM (test code = CA) 8.8 mg/dL 8.5-10.1 N CBC W/AUTO [id number] 14:20:00* Test Item Value Reference Range Interpretation Comments WHITE BLOOD CELL (test code = WBC) 5.4 K/mm3 4.5-12.5 N RED BLOOD CELL (test code = RBC) 3.74 mill/mm3 4.0-5.8 L HEMOGLOBIN (test code = HGB) 11.3 gram/dL 13.0-17.5 L HEMATOCRIT (test code = HCT) 34.8 % 42.0-52.0 L MEAN CELL VOLUME (test code = MCV) 93.0 fL 80-98 N MEAN CELL HGB (test code = MCH) 30.2 picogram 27.0-33.0 N MEAN CELL HGB CONCETRATION (test code = MCHC) 32.5 gram/dL 33.0-36. 0 L RED CELL DISTRIBUTION WIDTH (test code = RDW) 13.7 % 11.6-16. 2 N RED CELL DISTRIBUTION WIDTH SD (test code = RDW-SD) 47.1 fL 37 .0-51.0 N PLATELET COUNT (test code = PLT) 164 K/mm3 150-450 N MEAN PLATELET VOLUME (test code = MPV) 12.6 fL 6.7-11.0 H NEUTROPHIL % (test code = NT%) 65.8 % 39.0-69.0 N IMMATURE GRANULOCYTE % (test code = IG%) 0.4 % 0.0-5.0 N LYMPHOCYTE % (test code = LY%) 21.1 % 25.0-55.0 L MONOCYTE % (test code = MO%) 8.5 % 0.0-10.0 N EOSINOPHIL % (test code = EO%) 3.5 % 0.0-5.0 N BASOPHIL % (test code = BA%) 0.7 % 0.0-1.0 N NUCLEATED RBC % (test code = NRBC%) 0.0 % 0-0 N NEUTROPHIL # (test code = NT#) 3.56 K/mm3 1.8-7.7 N IMMATURE GRANULOCYTE # (test code = IG#) 0.02 x10 3/uL 0-0.03 N LYMPHOCYTE # (test code = LY#) 1.14 K/mm3 1.0-5.0 N MONOCYTE # (test code = MO#) 0.46 K/mm3 0-0.8 N EOSINOPHIL # (test code = EO#) 0.19 K/mm3 0.0-0.5 N BASOPHIL # (test code = BA#) 0.04 K/mm3 0.0-0.2 N NUCLEATED RBC # (test code = NRBC#) 0.00 K/mm3 0.0-0.1 N BASIC METABOLIC [id number] 14:20:00* Test Item Value Reference Range Interpretation Comments SODIUM (test code = NA) 140 mmol/L 136-145 N POTASSIUM (test code = K) 3.3 mmol/L 3.5-5.1 L CHLORIDE (test code = CL) 107.0 mmol/L 98-107 N CARBON DIOXIDE (test code = CO2) mmol/L 21-32 ANION GAP (test code = GAP) 10-20 GLUCOSE (test code = GLU) mg/dL 74-106 BLOOD UREA NITROGEN (test code = BUN) mg/dL 7-18 GLOMERULAR FILTRATION RATE (test code = GFR) mL/min >=60 CREATININE (test code = CREAT) mg/dL 0.7-1.3 BUN/CREATININE RATIO (test code = BUN/CREA) 10-20 CALCIUM (test code = CA) 8.8 mg/dL 8.5-10.1 N [id number] 18:04:00* Test Item Value Reference Range Interpretation Comments GLUBED (test code = GLUBED) 95 mg/dL 74-106 N Performed by certified concrete pile driver operator at [facility] [id number] 07:58:00* Test Item Value Reference Range Interpretation Comments GLUBED (test code = GLUBED) 99 mg/dL 74-106 N Performed by certified concrete pile driver operator at [facility] [id number] 21:01:00* Test Item Value Reference Range Interpretation Comments GLUBED (test code = GLUBED) 105 mg/dL 74-106 N Performed by certified concrete pile driver operator [facility] CenterNotified Nurse~ Coronavirus 2019 nCoV [id number] 11:47:00* Test Item Value Reference Range Interpretation Comments Coronavirus 2019 nCoV Bedside (test code = COVNONPUIBED) Negative Emergent procedure? YESBASIC METABOLIC [id number] 07:11:00* Test Item Value Reference Range Interpretation Comments SODIUM (test code = NA) 142 mmol/L 136-145 N POTASSIUM (test code = K) 3.8 mmol/L 3.5-5.1 N CHLORIDE (test code = CL) 109.0 mmol/L 98-107 H CARBON DIOXIDE (test code = CO2) 26.0 mmol/L 21-32 N ANION GAP (test code = GAP) 10.8 10-20 N GLUCOSE (test code = GLU) 136 mg/dL 74-106 H BLOOD UREA NITROGEN (test code = BUN) 10 mg/dL 7-18 N GLOMERULAR FILTRATION RATE (test code = GFR) > 60 mL/min >=60 Estimated GFR by using Modified MDRD formula.Chronic kidney disease is defined as either kidney damageor GFR <60 mL/min/1.73 m2 for >3 months. CREATININE (test code = CREAT) 0.40 mg/dL 0.7-1.3 L BUN/CREATININE RATIO (test code = BUN/CREA) 25.0 10-20 H CALCIUM (test code = CA) 9.5 mg/dL 8.5-10.1 N BASIC METABOLIC [id number] 06:51:00* Test Item Value Reference Range Interpretation Comments SODIUM (test code = NA) 142 mmol/L 136-145 N POTASSIUM (test code = K) 3.8 mmol/L 3.5-5.1 N CHLORIDE (test code = CL) 109.0 mmol/L 98-107 H CARBON DIOXIDE (test code = CO2) mmol/L 21-32 ANION GAP (test code = GAP) 10-20 GLUCOSE (test code = GLU) mg/dL 74-106 BLOOD UREA NITROGEN (test code = BUN) mg/dL 7-18 GLOMERULAR FILTRATION RATE (test code = GFR) mL/min >=60 CREATININE (test code = CREAT) mg/dL 0.7-1.3 BUN/CREATININE RATIO (test code = BUN/CREA) 10-20 CALCIUM (test code = CA) mg/dL 8.5-10.1 CBC W/AUTO [id number] 06:33:00* Test Item Value Reference Range Interpretation Comments WHITE BLOOD CELL (test code = WBC) 11.5 K/mm3 4.5-12.5 N RED BLOOD CELL (test code = RBC) 3.99 mill/mm3 4.0-5.8 L HEMOGLOBIN (test code = HGB) 12.1 gram/dL 13.0-17.5 L RESULT VERIFIED BY REPEAT ANALYSIS HEMATOCRIT (test code = HCT) 36.8 % 42.0-52.0 L MEAN CELL VOLUME (test code = MCV) 92.2 fL 80-98 N MEAN CELL HGB (test code = MCH) 30.3 picogram 27.0-33.0 N MEAN CELL HGB CONCETRATION (test code = MCHC) 32.9 gram/dL 33.0-36. 0 L RED CELL DISTRIBUTION WIDTH (test code = RDW) 14.2 % 11.6-16. 2 N RED CELL DISTRIBUTION WIDTH SD (test code = RDW-SD) 48.5 fL 37 .0-51.0 N PLATELET COUNT (test code = PLT) 144 K/mm3 150-450 L RESULT VERIFIED BY REPEAT ANALYSIS MEAN PLATELET VOLUME (test code = MPV) 12.6 fL 6.7-11.0 H NEUTROPHIL % (test code = NT%) 86.3 % 39.0-69.0 H IMMATURE GRANULOCYTE % (test code = IG%) 0.3 % 0.0-5.0 N LYMPHOCYTE % (test code = LY%) 3.8 % 25.0-55.0 L MONOCYTE % (test code = MO%) 8.4 % 0.0-10.0 N EOSINOPHIL % (test code = EO%) 0.9 % 0.0-5.0 N BASOPHIL % (test code = BA%) 0.3 % 0.0-1.0 N NUCLEATED RBC % (test code = NRBC%) 0.0 % 0-0 N NEUTROPHIL # (test code = NT#) 9.88 K/mm3 1.8-7.7 H IMMATURE GRANULOCYTE # (test code = IG#) 0.04 x10 3/uL 0-0.03 H LYMPHOCYTE # (test code = LY#) 0.43 K/mm3 1.0-5.0 L MONOCYTE # (test code = MO#) 0.96 K/mm3 0-0.8 H EOSINOPHIL # (test code = EO#) 0.10 K/mm3 0.0-0.5 N BASOPHIL # (test code = BA#) 0.04 K/mm3 0.0-0.2 N NUCLEATED RBC # (test code = NRBC#) 0.00 K/mm3 0.0-0.1 N MANUAL DIFF REQUIRED (test code = MDIFF) NO - CT ABD PELVIS /[id number] 17:10:00 Name: VANESSA KHOURY [facility] : 1975 Age/S: 44 / M [address] [facility] [id number] Loc: [place] [address] Phys: Virgil Montero MD Acct: [id number] Dis Date: Status: REG ER PHONE #: [phone] Exam Date: 09/10/2019 1651 FAX #: [phone] Reason: Vomiting after PEG tube replacement EXAMS: CPT CODE: [id number] CT ABD PELVIS W/CONT 10191 HISTORY: Vomiting after PEG tube replacement. COMPARISON: Abdomen x-ray from same day. Location: [facility]. CT of abdomen and pelvis with IV contrast: 100 mL of Isovue-370. Automated exposure control. CT of abdomen: The lung bases demonstrated right segmental atelectasis. Dependent changes on the left. Hepatic parenchyma is extensively obscured by beam hardening artifact from patient's arms. No gross abnormal enhancement. Portal vein and hepatic artery are patent. Markedly distended gallbladder without radiopaque stones. Gallbladder measured 7.4 cm. The liver measured 14.4 cm in length. The spleen is not enlarged. Accessory spleen. Stomach is distended incompletely with contrast and air. Gastrostomy tube noted along its lower anterior margin with the tip within the gastric body and fundus location. Metallic component seen within the anterior abdominal wall at the insertion site. Pancreas is enhancing homogeneously. Unremarkable adrenals. Ki dneys are free from hydroureteronephrosis. Homogeneous enhancement. Bila teral excretion is not seen which may suggest timing of imaging or renal i nsufficiency. No pathologic adenopathy. Well-opacified abdominal and pelvic vasculature. No bowel obstruction or colitis or d iverticulitis or enteritis. Constipation. CT PELVIS: Appendix is not visible but no inflammatory change. Pelvic bowel loops are unobstructed. Moderate amount of fecal material in the rectosig moid colon. Decompressed urinary bladder in presence of a Reyes ca theter. PAGE 1 Signed Report (CON TINUED) Name: VANESSA KHOURY [facility] : 1975 Age/S: 44 / M [address] [facility] Unit #: [id number] Loc: [place] [address] Phys: Virgil Velasquez MD Acct: [id number] Dis Date: Status: REG ER PH ONE #: [phone] Exam Date: 09/10/2019 165 FAX #: [phone] Reason: Vomiting after PEG tube replacement EXA MS: CPT CODE: [id number] CT AB D PELVIS W/CONT 75976 <Continued> Prostate is not enlarged. No pelvic pathologic adenopathy. No free fluid or free air or abscess. Subcutaneous tissues otherwise are unremarkable. Destructive and erosive changes along both hip joints noted with moderate amount of soft tissue. This appears chronic. There is g reater erosion of the right femoral neck when compared to the left side. DJD. Compression fracture deformity of L1 and T7 vertebral bodies of unce rtain age. IMPRESSION: Stomach is distended in completely with contrast and air. Gastrostomy tube tip within the gastr ic body and antrum region. Metallic component seen within the anterior abdominal wall musculature at the insertion site of the PEG tube. Corre late clinically. Chronic erosive changes along the lateral mar gins of both hips with exuberant calcifications within the soft tissues with soft tissue hypertrophy along both hip joints. This appears chroni c. Compression fracture deformities of uncertain age at L1 and T7 vertebral body level. Excretion is not seen on the delayed images which suggest timing of imaging or renal insufficiency. Correlate with renal function tests. at 1710 Reported and signed by: Luke Givens M.D. CC: Virgil Montero MD Technologist:Yola Brooks RT(R)(CT); . CTDI: DLP: Trns cb Date/Time: 09/10/2019 (1710) t.[email or web address].[email or web address] Orig Print D/T: S: 09/10/2019 (6715) PAGE 2 Signed Report BASIC METABOLIC [id number] 15:56:00* Test Item Value Reference Range Interpretation Comments SODIUM (test code = NA) 142 mmol/L 136-145 N POTASSIUM (test code = K) 4.0 mmol/L 3.5-5.1 N CHLORIDE (test code = CL) 102.0 mmol/L 98-107 N CARBON DIOXIDE (test code = CO2) 31.0 mmol/L 21-32 N ANION GAP (test code = GAP) 13.0 10-20 N GLUCOSE (test code = GLU) 135 mg/dL 74-106 H BLOOD UREA NITROGEN (test code = BUN) 14 mg/dL 7-18 N GLOMERULAR FILTRATION RATE (test code = GFR) > 60 mL/min >=60 Estimated GFR by using Modified MDRD formula.Chronic kidney disease is defined as either kidney damageor GFR <60 mL/min/1.73 m2 for >3 months. CREATININE (test code = CREAT) 0.70 mg/dL 0.7-1.3 N BUN/CREATININE RATIO (test code = BUN/CREA) 20.0 10-20 N CALCIUM (test code = CA) 10.6 mg/dL 8.5-10.1 H HEPATIC FUNCTION [id number] 15:56:00* Test Item Value Reference Range Interpretation Comments TOTAL PROTEIN (test code = PROT) 9.9 gram/dL 6.4-8.2 H ALBUMIN (test code = ALB) 4.2 g/dL 3.4-5.0 N GLOBULIN (test code = GLOB) 5.7 gram/dL 2.7-4.2 H ALBUMIN/GLOBULIN RATIO (test code = A/G) 0.7 0.75-1.50 L BILIRUBIN TOTAL (test code = BILT) 0.70 mg/dL 0.0-1.0 N BILIRUBIN DIRECT (test code = BILD) 0.25 mg/dL 0.0-0.20 H SGOT/AST (test code = AST) 32 IUnit/L 15-37 N SGPT/ALT (test code = ALT) 70 IUnit/L 12-78 N ALKALINE PHOSPHATASE TOTAL (test code = ALKP) 243 IUnit/L 45-117 H Note change in reference range due to change in reagent. [id number] 15:56:00* Test Item Value Reference Range Interpretation Comments LIPASE (test code = LIP) 63 U/L 73.0-393.0 L BASIC METABOLIC [id number] 15:48:00* Test Item Value Reference Range Interpretation Comments SODIUM (test code = NA) 142 mmol/L 136-145 N POTASSIUM (test code = K) 4.0 mmol/L 3.5-5.1 N CHLORIDE (test code = CL) 102.0 mmol/L 98-107 N CARBON DIOXIDE (test code = CO2) mmol/L 21-32 ANION GAP (test code = GAP) 10-20 GLUCOSE (test code = GLU) mg/dL 74-106 BLOOD UREA NITROGEN (test code = BUN) mg/dL 7-18 GLOMERULAR FILTRATION RATE (test code = GFR) mL/min >=60 CREATININE (test code = CREAT) mg/dL 0.7-1.3 BUN/CREATININE RATIO (test code = BUN/CREA) 10-20 CALCIUM (test code = CA) mg/dL 8.5-10.1 HEPATIC FUNCTION [id number] 15:48:00* Test Item Value Reference Range Interpretation Comments TOTAL PROTEIN (test code = PROT) gram/dL 6.4-8.2 ALBUMIN (test code = ALB) g/dL 3.4-5.0 GLOBULIN (test code = GLOB) gram/dL 2.7-4.2 ALBUMIN/GLOBULIN RATIO (test code = A/G) 0.75-1.50 BILIRUBIN TOTAL (test code = BILT) mg/dL 0.0-1.0 BILIRUBIN DIRECT (test code = BILD) mg/dL 0.0-0.20 SGOT/AST (test code = AST) IUnit/L 15-37 SGPT/ALT (test code = ALT) IUnit/L 12-78 ALKALINE PHOSPHATASE TOTAL (test code = ALKP) IUnit/L 45-117 [id number] 15:48:00* Test Item Value Reference Range Interpretation Comments LIPASE (test code = LIP) U/L 73.0-393.0 CBC W/O [id number] 15:37:00* Test Item Value Reference Range Interpretation Comments WHITE BLOOD CELL (test code = WBC) 14.5 K/mm3 4.5-12.5 H RED BLOOD CELL (test code = RBC) 5.02 mill/mm3 4.0-5.8 N HEMOGLOBIN (test code = HGB) 15.1 gram/dL 13.0-17.5 N HEMATOCRIT (test code = HCT) 46.6 % 42.0-52.0 N MEAN CELL VOLUME (test code = MCV) 92.8 fL 80-98 N MEAN CELL HGB (test code = MCH) 30.1 picogram 27.0-33.0 N MEAN CELL HGB CONCETRATION (test code = MCHC) 32.4 gram/dL 33.0-36. 0 L RED CELL DISTRIBUTION WIDTH (test code = RDW) 13.9 % 11.6-16. 2 N PLATELET COUNT (test code = PLT) 220 K/mm3 150-450 N MEAN PLATELET VOLUME (test code = MPV) 12.7 fL 6.7-11.0 H CBC W/O [id number] 15:36:00* Test Item Value Reference Range Interpretation Comments WHITE BLOOD CELL (test code = WBC) K/mm3 4.5-12.5 RED BLOOD CELL (test code = RBC) mill/mm3 4.0-5.8 HEMOGLOBIN (test code = HGB) 15.1 gram/dL 13.0-17.5 N HEMATOCRIT (test code = HCT) 46.6 % 42.0-52.0 N MEAN CELL VOLUME (test code = MCV) fL 80-98 MEAN CELL HGB (test code = MCH) picogram 27.0-33.0 MEAN CELL HGB CONCETRATION (test code = MCHC) gram/dL 33.0-36. 0 RED CELL DISTRIBUTION WIDTH (test code = RDW) % 11.6-16. 2 PLATELET COUNT (test code = PLT) K/mm3 150-450 MEAN PLATELET VOLUME (test code = MPV) fL 6.7-11.0 - CONT INJ GS/ DU/ JJ/ [id number] 09:56:00 FAX: Virgil Montero MD [facility]: [address] St: REG Name: VANESSA ANDREA [facility] : [birth year] Age/S: 44/M [address] [facility] Unit #: [id number] Loc: [place] [address] Phys: Virgil Montero MD Acct: [id number] Dis Date: Status: REG ER PHONE #: [phone] Exam Date: 09/10/2019951 FAX #: [phone] Reason: peg tube replacement EXAMS: CPT CODE: [id number] CONT INJ GS/ DU/ JJ/ G G 29250 EXAM: KUB and evaluation of gastro stomy tube with contrast injection; INFORMATION: Status post repla cement of dislodged G-tube; IMPRESSION: 1. Initial KUB shows the feeding tube projecting over the left upper quadrant. Unremar kable bowel gas pattern. 2. After injection of a small amount of Gastro grafin the gastric fundus is outlined indicating intragastric position o f the feeding tube. Location code: [facility] Electronically Signed by Kiana House o n 09/10/2019 at 0956 Reported and signed by: Delbert House M.D. CC: Virgil Montero MD Technologist: ZENA GRAMAJO RT(R) Trnscrd Date/Time/By: 09/10/2019 (955) : By: WillGRW Orig Print D/T: S: 09/10/2019 (958) PAGE 1 Signed Report Blood Culture 2019-08-18 01:37:00* Test Item Value Reference Range Interpretation Comments Blood Culture (test code = 87391201) NO GROWTH AFTER 5 DAYS, FINAL REPORT [facility]2019-08-16 10:36:00* Test Item Value Reference Range Interpretation Comments Chlamydia pneumoniae DNA (PCR) (test code = Chlamydia pneumoniae DNA (PCR)) NOT DETECTED NOT DETECT [facility] CenterInfluenza Type A (RT-PCR)2019-08-16 10:36:00* Test Item Value Reference Range Interpretation Comments Influenza Type A (RT-PCR) (test code = 598759355) NOT DETECTED NOT DETECT [facility]oplasma pneumoniae (PCR)2019-08-16 10:36:00* Test Item Value Reference Range Interpretation Comments Mycoplasma pneumoniae (PCR) (test code = Mycoplasma pn eumoniae (PCR)) NOT DETECTED NOT DETECT [facility] B (RT-PCR)2019-08-16 10:36:00* Test Item Value Reference Range Interpretation Comments Influenza Type B (RT-PCR) (test code = 702381268) NOT DETECTED NOT DETECT [facility] CenterRespiratory Syncytial Virus (PCR) 2019-08-16 10:36:00* Test Item Value Reference Range Interpretation Comments Respiratory Syncytial Virus (PCR) (test code = 477499981) NO T DETECTED NOT DETECT [facility] CenterBordetella pertussis DNA (PCR)2019-08-16 10:36:00* Test Item Value Reference Range Interpretation Comments Bordetella pertussis DNA (PCR) (test code = 226348438) NOT DETEC GIOVANNA NOT DETECT [facility] CenterParainfluenza Type 1 (PCR)2019-08-16 10:36:00* Test Item Value Reference Range Interpretation Comments Parainfluenza Type 1 (PCR) (test code = 555501505) NOT DETECTED NOT DETECT [facility] CenterParainfluenza Type 2 (PCR)2019-08-16 10:36:00* Test Item Value Reference Range Interpretation Comments Parainfluenza Type 2 (PCR) (test code = 565685873) NOT DETECTED NOT DETECT [facility] CenterParainfluenza Type 3 (PCR)2019-08-16 10:36:00* Test Item Value Reference Range Interpretation Comments Parainfluenza Type 3 (PCR) (test code = 445206367) NOT DETECTED NOT DETECT [facility] CenterParainfluenza Type 4 (PCR)2019-08-16 10:36:00* Test Item Value Reference Range Interpretation Comments Parainfluenza Type 4 (PCR) (test code = Parainfluenza Type 4 (PCR)) NOT DETECTED NOT DETECT [facility] CenterRhinovirus (PCR)2019-08-16 10:36:00* Test Item Value Reference Range Interpretation Comments Rhinovirus (PCR) (test code = 373973441) NOT DETECTED NOT DETECT [facility] CenterHuman Metapneumovirus (PCR)2019-08-16 10:36:00* Test Item Value Reference Range Interpretation Comments Human Metapneumovirus (PCR) (test code = 864977729) NOT DETECTED NO T DETECT [facility] CenterAdenovirus (PCR)2019-08-16 10:36:00* Test Item Value Reference Range Interpretation Comments Adenovirus (PCR) (test code = 822041774) NOT DETECTED NOT DETECT [facility] CenterCoronavirus Type HKU1 (PCR)2019-08-16 10:36:00* Test Item Value Reference Range Interpretation Comments Coronavirus Type HKU1 (PCR) (test code = Coronavirus T ype HKU1 (PCR)) NOT DETECTED NOT DETECT [facility] CenterCoronavirus Type NL63 (PCR)2019-08-16 10:36:00* Test Item Value Reference Range Interpretation Comments Coronavirus Type NL63 (PCR) (test code = Coronavirus T ype NL63 (PCR)) NOT DETECTED NOT DETECT [facility] CenterCoronavirus Type OC43 (PCR)2019-08-16 10:36:00* Test Item Value Reference Range Interpretation Comments Coronavirus Type OC43 (PCR) (test code = Coronavirus T ype OC43 (PCR)) NOT DETECTED NOT DETECT [facility] CenterCoronavirus Type 229E (PCR)2019-08-16 10:36:00* Test Item Value Reference Range Interpretation Comments Coronavirus Type 229E (PCR) (test code = Coronavirus T ype 229E (PCR)) NOT DETECTED NOT DETECT Other viruses and bacteria not targeted by this PCR panel cannot be excluded; th erefore clinical correlation and follow up of serology, culture results, and ot er molecular studies is required. The results are not intended to be used as the sole means for clinical diagnosis or patient management decisions. This sample was tested at [facility] using the [employer] Respiratory Panel. It is FDA cleared and has been verified and approved by [facility] for clinical use on nasopharyngeal swa b specimens.ALL RESPIRATORY VIRAL PANEL Testing performed at [address] [id number] HAVE BEEN CALLED [facility] [id number] 20:32:00* Test Item Value Reference Range Interpretation Comments Bedside Glucose (test code = 26691-9) 112 70-120 Meter ID: [id number] Scott & White [facility] Center – GrapevineCapillary blood glucose measurement by glucometer (mass/volume)2019-08-15 11:26:00* Test Item Value Reference Range Interpretation Comments Bedside Glucose (test code = 59531-6) 112 70-120 Meter ID: [id number] Scott & White [facility] – GrapevineCapillary blood glucose measurement by glucometer (mass/volume)2019-08-15 11:26:00* Test Item Value Reference Range Interpretation Comments Bedside Glucose (test code = 61710-7) 112 70-120 Meter ID: [id number] [facility] Resourcesodium Level 2019-08-15 05:37:00* Test Item Value Reference Range Interpretation Comments Sodium Level (test code = 2951-2) 145 136-145 [facility] CenterPotassium Kqmum9311-26-65 05:37:00* Test Item Value Reference Range Interpretation Comments Potassium Level (test code = 2823-3) 3.3 3.5-5.1 L [facility] CenterChloride Lppiy4615-29-73 05:37:00* Test Item Value Reference Range Interpretation Comments Chloride Level (test code = 2075-0) 110 98-107 H [facility] CenterCarbon Dioxide Dcddk4803-15-49 05:37:00* Test Item Value Reference Range Interpretation Comments Carbon Dioxide Level (test code = 2028-9) 26 22-29 [facility] CenterAnion Pym3246-22-94 05:37:00* Test Item Value Reference Range Interpretation Comments Anion Gap (test code = 38149-7) 12.3 8-16 [facility] CenterBlood Urea Ctjefsms5394-62-75 05:37:00* Test Item Value Reference Range Interpretation Comments Blood Urea Nitrogen (test code = 3094-0) 11 7-26 [facility] CenterCreatinine2020-04-06 05:37:00* Test Item Value Reference Range Interpretation Comments Creatinine (test code = 2160-0) 0.54 0.72-1.25 L [facility] CenterBUN/Creatinine Ythfr0238-75-79 05:37:00* Test Item Value Reference Range Interpretation Comments BUN/Creatinine Ratio (test code = 3097-3) 20 6-25 [facility] CenterEstimat Glomerular Filtration Rate 2019-08-15 05:37:00* Test Item Value Reference Range Interpretation Comments Estimat Glomerular Filtration Rate (test code = 480295575) > 60 >60 Ranges were taken from the National Kidney Disease Education Program and the [facility] literature.Reference ranges:60 or greater: Frsqvk93-47 ( for 3 consecutive months): Chronic kidney disease 15 or less: Kidney failureMemorial Hermann Memorial City Medical CenterGlucose Eedhb0949-78-11 05:37:00* Test Item Value Reference Range Interpretation Comments Glucose Level (test code = ADQ9141) 88 74-118 [facility] CenterCalcium Vzkjx5426-00-82 05:37:00* Test Item Value Reference Range Interpretation Comments Calcium Level (test code = 19558-3) 8.5 8.4-10.2 [facility] CenterCoronavirus (PCR)2019-08-15 05:13:00* Test Item Value Reference Range Interpretation Comments Coronavirus (PCR) (test code = Coronavirus (PCR)) NOT DETECTED NOTD ETECTED SARS-COV-2 (COVID19), HIGHRISK, RT-PCRNegative results do not preclude SARS-CoV- 2 infection and should not be used as the sole basis for patient management deci sions. Negative results must be combined with clinical observations, patient his tory, and epidemiological information. Optimum specimen types and timing for pea k viral levels during infections caused by SARS-CoV-2 have not been determined. Collection of multiple specimens ot types of specimens may be necessary to detec t virus. Improper specimen collection and handling, sequence variability under p rimers/probes, or organism present below the limit of detection may lead to fals e negative results. Positive and negative predictive values of testing are highl y dependent on prevalance. False negative test results are more likely when prev alence is high.The expected result is negative (not detected).The SARS-CoV-2 mabel t is intended for the qualitative detection of nucleic acid from SARS-CoV-2 in n asopharyngeal and oropharyngeal swab samples from patients who meet COVID-19 cli nical and or epidemiological criteria. For lower respiratory tract specimens, th e assay is submitted for authoriztion by FDA under an Emergency Use Authorizatio n (EUA). Testing methodology is real time RT-PCR. If received as separate collec tion devices, nasopharygeal and oropharyngeal specimens are combined for analysi s. Additional specimens may be split to a separate accession for analysi and rep orting as this test includes a single unit of service.Test results must be corre lated with clinical presentation and evaluated in the context of other laborator y and epidemiologic data. Test performance can be affected because the epidemiol ogy and clinical spectrum of infection caused by SARS-CoV-2 is not fully known. For example, the optimum types of specimens to collect and when during the cours e of infection these specimens are most likely to contain detectable viral RNA m ay not be known.This test has not been Food and Drug Administration (FDA) cleare d or approved and has been authorized by FDA under an Emergency Use Authorizatio n (EUA). The test is only authorized for the duration of the declaration that ci rcumstances exist justifying the authorization of emergency use of in vitro diag nostic tests for detection and/or diagnosis of SARS-CoV-2 under section 564(b) o f the Act, 21 U.S.C. section 360bbb-3(b)(1), unless the authorization is termina giovanna or revoked sooner. [facility] are certified under the C linical Laboratory Improvement Amendments of 1988 (CLIA), 42 U.S.C. section 263a , to perform high complexity tests.Specimen sent to [facility] and testing performed by [facility] [address] [place] [address] [phone] Director: Jose Alberto M.D.CLIA # [id number] [facility]razosport Hospitalerum or plasma sodium measurement (moles/volume)2019-08-15 04:50:00* Test Item Value Reference Range Interpretation Comments Sodium Level (test code = 2951-2) 145 136-[address] [facility] [facility] Hospitalerum or plasma potassium measurement (moles/volume)2019-08-15 04:50:00* Test Item Value Reference Range Interpretation Comments Potassium Level (test code = 2823-3) 3.3 3.5-5.[address] [facility] Hospitalerum or plasma chloride measurement (moles/volume)2019-08-15 04:50:00* Test Item Value Reference Range Interpretation Comments Chloride Level (test code = 2075-0) 110 98-[address] [facility] Hospitalerum or plasma carbon dioxide, total measurement (moles/volume)2019-08-15 04:50:00* Test Item Value Reference Range Interpretation Comments Carbon Dioxide Level (test code = 2028-9) 26 22-[address] [facility] Hospitalerum or plasma anion syn1614-81-31 04:50:00* Test Item Value Reference Range Interpretation Comments Anion Gap (test code = 73198-1) 12.3 8-[address] [facility] Hospitalerum or plasma urea nitrogen measurement (mass/volume)2019-08-15 04:50:00* Test Item Value Reference Range Interpretation Comments Blood Urea Nitrogen (test code = 3094-0) 11 7-[address] [facility] Hospitalerum or plasma creatinine measurement (mass/volume)2019-08-15 04:50:00* Test Item Value Reference Range Interpretation Comments Creatinine (test code = 2160-0) 0.54 0.72-1.[address] [facility] Hospitalerum or plasma urea nitrogen/creatinine mass bhtij9307-85-38 04:50:00* Test Item Value Reference Range Interpretation Comments BUN/Creatinine Ratio (test code = 3097-3) 20 6-25 [facility] CenterEstimated glomerular filtration rate (GFR) vsnlcedceoczh8895-32-43 04:50:00* Test Item Value Reference Range Interpretation Comments Estimat Glomerular Filtration Rate (test code = 921097420) > 60 >60 Ranges were taken from the National Kidney Disease Education Program and the [facility] Kid[facility] Foundation literature.Reference ranges:60 or greater: Shtkve63-34 ( for 3 consecutive months): Chronic kidney disease 15 or less: Kidney failureMemorial Hermann Memorial City Medical CenterGlucose jngzyhoyvix8003-94-20 04:50:00* Test Item Value Reference Range Interpretation Comments Glucose Level (test code = BRI3864) 88 74-[address] [facility] Hospitalerum or plasma calcium measurement (mass/volume)2019-08-15 04:50:00* Test Item Value Reference Range Interpretation Comments Calcium Level (test code = 05199-3) 8.5 8.4-10.2 [facility] CenterCHEST SINGLE (PORTABLE)2019-08-14 10:31:00 [facility] [address] [address] Patient Name: VANESSA KHOURY MR #: [id number] : 1975 Age/Sex: 44/M Req #: [id number] Adm Physician: ABDI TEJADA MD Ordered by: ANY CHACON MD Report #: [id number] Location: ICU Room/Bed: ICU [facility] Procedure: [id number] DX/CH EST SINGLE (PORTABLE) Exam Date: 08/14/19 Exam Time: 929 REPORT STATUS: Signed EXAM INATION: CHEST SINGLE (PORTABLE) INDICATION: FEVER 929 COMPARISON: Chest x-ray and CT dated 08/13/2019 FINDINGS : AP view TUBES and LINES: None. LUNGS: Limited by body habitus and low lung volumes. Mild vascular congestion, accentuated by low lung volum es. Mild right lower lung field atelectasis. PLEURA: No significant pleu ral effusion or pneumothorax. HEART AND MEDIASTINUM: The cardiomediastinal silhouette is unremarkable. BONES AND SOFT TISSUES: No acute osseous lesion. Again seen elevated right hemidiaphragm. UPPER ABDOMEN: No free air under the diaphragm. IMPRESSION: Limited study. No significant i nterval change from prior exam. Elevated right hemidiaphragm with mild adjacen t atelectasis. Underlying/developing pneumonia cannot be entirely excluded in the appropriate clinical context. Signed by: Dr. Chavo Arriola MD on 08/13 10:34 AM Dictated By: CHAVO ARRIOLA MD 1034 Transcribed By: SARAH on 08/14/19 1034 COPY TO: ANY CHACON MD Total Wohheadwb5879-74-28 05:44:00* Test Item Value Reference Range Interpretation Comments Total Bilirubin (test code = 1975-2) 0.5 0.2-1.2 [facility] CenterAspartate Amino Transf (AST/SGOT) 2019-08-14 05:44:00* Test Item Value Reference Range Interpretation Comments Aspartate Amino Transf (AST/SGOT) (test code = Aspartate Amino Transf (AST/SGOT)) 18 5-34 [facility] CenterAlanine Aminotransferase (ALT/SGPT) 2019-08-14 05:44:00* Test Item Value Reference Range Interpretation Comments Alanine Aminotransferase (ALT/SGPT) (test code = 1742-6) 17 0-55 [facility] CenterTotal Ncldwcd7088-20-11 05:44:00* Test Item Value Reference Range Interpretation Comments Total Protein (test code = 2885-2) 5.9 6.5-8.1 L [facility] CenterAlbumin2020-04-05 05:44:00* Test Item Value Reference Range Interpretation Comments Albumin (test code = 1751-7) 2.5 3.5-5.0 L [facility] CenterGlobulin2020-04-05 05:44:00* Test Item Value Reference Range Interpretation Comments Globulin (test code = 92143-9) 3.4 2.3-3.5 [facility] CenterAlbumin/Globulin Vwphu5623-13-28 05:44:00 * Test Item Value Reference Range Interpretation Comments Albumin/Globulin Ratio (test code = 1759-0) 0.7 0.8-2.0 L [facility] CenterAlkaline Yrjmovvlrmj6256-44-26 05:44:00* Test Item Value Reference Range Interpretation Comments Alkaline Phosphatase (test code = 6768-6) 108 40-150 [facility] CenterProthrombin Msaz5794-88-64 05:40:00* Test Item Value Reference Range Interpretation Comments Prothrombin Time (test code = 5902-2) 15.9 11.9-14.5 H [facility] CenterProthromb Time International Ratio 2019-08-14 05:40:00* Test Item Value Reference Range Interpretation Comments Prothromb Time International Ratio (test code = 6301-6) 1.19 Oral Anticoagulant Therapy INR Values:1. Low Intensity Therapy 1.5 - 2.02 . Moderate Intensity Therapy 2.0 - 3.03. High Intensity Therapy(1) 2.5 - 3. 54. High Intensity Therapy(2) 3.0 - 4.05. Panic Value INR > 5.0 [facility] CenterWhite Blood Jmwaq4132-64-69 05:25:00* Test Item Value Reference Range Interpretation Comments White Blood Count (test code = 6690-2) 7.01 4.8-10.8 [facility] CenterRed Blood Meazf3722-39-91 05:25:00* Test Item Value Reference Range Interpretation Comments Red Blood Count (test code = 789-8) 3.26 4.3-5.7 L [facility] CenterHemoglobin2020-04-05 05:25:00* Test Item Value Reference Range Interpretation Comments Hemoglobin (test code = 33597-5) 9.5 14.0-18.0 L [facility] CenterHematocrit2020-04-05 05:25:00* Test Item Value Reference Range Interpretation Comments Hematocrit (test code = 4544-3) 31.1 38.2-49.6 L [facility] CenterMean Corpuscular Yqdqix6137-46-50 05:25:00* Test Item Value Reference Range Interpretation Comments Mean Corpuscular Volume (test code = 787-2) 95.4 81-99 [facility] CenterMean Corpuscular Nklghcwecp8010-57-37 05:25:00* Test Item Value Reference Range Interpretation Comments Mean Corpuscular Hemoglobin (test code = 785-6) 29.1 28-32 [facility] CenterMean Corpuscular Hemoglobin Concent 2019-08-14 05:25:00* Test Item Value Reference Range Interpretation Comments Mean Corpuscular Hemoglobin Concent (test code = 786-4) 30.5 31-35 L [facility] CenterRed Cell Distribution Ngddf3485-47-70 05:25:00* Test Item Value Reference Range Interpretation Comments Red Cell Distribution Width (test code = 28685-2) 13.2 11.7 -14.4 [facility] CenterPlatelet Sutvx4987-36-07 05:25:00* Test Item Value Reference Range Interpretation Comments Platelet Count (test code = 777-3) 92 140-360 L [facility] CenterNeutrophils (%) (Auto)2019-08-14 05:25:00 * Test Item Value Reference Range Interpretation Comments Neutrophils (%) (Auto) (test code = 28998-0) 73.3 38.7-80.0 [facility] CenterLymphocytes (%) (Auto)2019-08-14 05:25:00 * Test Item Value Reference Range Interpretation Comments Lymphocytes (%) (Auto) (test code = 736-9) 18.7 18.0-39.1 [facility] CenterMonocytes (%) (Auto)2019-08-14 05:25:00* Test Item Value Reference Range Interpretation Comments Monocytes (%) (Auto) (test code = 5905-5) 6.7 4.4-11.3 [facility] CenterEosinophils (%) (Auto)2019-08-14 05:25:00 * Test Item Value Reference Range Interpretation Comments Eosinophils (%) (Auto) (test code = 713-8) 0.7 0.0-6.0 [facility] CenterBasophils (%) (Auto)2019-08-14 05:25:00* Test Item Value Reference Range Interpretation Comments Basophils (%) (Auto) (test code = 706-2) 0.3 0.0-1.0 [facility] CenterIM GRANULOCYTES %2019-08-14 05:25:00* Test Item Value Reference Range Interpretation Comments IM GRANULOCYTES % (test code = IM GRANULOCYTES %) 0.3 0.0- 1.0 [facility] CenterNeutrophils # (Auto)2019-08-14 05:25:00* Test Item Value Reference Range Interpretation Comments Neutrophils # (Auto) (test code = 751-8) 5.1 2.1-6.9 [facility] CenterLymphocytes # (Auto)2019-08-14 05:25:00* Test Item Value Reference Range Interpretation Comments Lymphocytes # (Auto) (test code = 98288-6) 1.3 1.0-3.2 [facility] CenterMonocytes # (Auto)2019-08-14 05:25:00* Test Item Value Reference Range Interpretation Comments Monocytes # (Auto) (test code = 742-7) 0.5 0.2-0.8 [facility] CenterEosinophils # (Auto)2019-08-14 05:25:00* Test Item Value Reference Range Interpretation Comments Eosinophils # (Auto) (test code = 711-2) 0.1 0.0-0.4 [facility] CenterBasophils # (Auto)2019-08-14 05:25:00* Test Item Value Reference Range Interpretation Comments Basophils # (Auto) (test code = 704-7) 0.0 0.0-0.1 [facility] CenterAbsolute Immature Granulocyte (auto 2019-08-14 05:25:00* Test Item Value Reference Range Interpretation Comments Absolute Immature Granulocyte (auto (mabel t code = Absolute Immature Granulocyte (auto) 0.02 0-0.1 [facility] CenterBlood leukocytes automated count (number/volume)2019-08-14 04:39:00* Test Item Value Reference Range Interpretation Comments White Blood Count (test code = 6690-2) 7.01 4.8-10.8 [facility] CenterBlood erythrocytes automated count (number/volume)2019-08-14 04:39:00* Test Item Value Reference Range Interpretation Comments Red Blood Count (test code = 789-8) 3.26 4.3-5.7 [facility] CenterBlood hemoglobin measurement (moles/volume)2019-08-14 04:39:00* Test Item Value Reference Range Interpretation Comments Hemoglobin (test code = 49055-7) 9.5 14.0-18.0 [facility] CenterAutomated blood hematocrit (volume fraction)2019-08-14 04:39:00* Test Item Value Reference Range Interpretation Comments Hematocrit (test code = 4544-3) 31.1 38.2-49.6 [facility] CenterAutomated erythrocyte mean corpuscular whgtsk2064-50-23 04:39:00* Test Item Value Reference Range Interpretation Comments Mean Corpuscular Volume (test code = 787-2) 95.4 81-99 [facility] CenterAutomated erythrocyte mean corpuscular hemoglobin (mass per erythrocyte)2019-08-14 04:39:00* Test Item Value Reference Range Interpretation Comments Mean Corpuscular Hemoglobin (test code = 785-6) 29.1 28-32 [facility] CenterAutomated erythrocyte mean corpuscular hemoglobin concentration measurement (mass/volume)2019-08-14 04:39:00* Test Item Value Reference Range Interpretation Comments Mean Corpuscular Hemoglobin Concent (test code = 786-4) 30.5 31-35 [facility] CenterRDW YpfTr-Kvi4550-99-05 04:39:00* Test Item Value Reference Range Interpretation Comments Red Cell Distribution Width (test code = 56272-3) 13.2 11.7 -14.4 [facility] CenterAutomated blood platelet count (count/volume)2019-08-14 04:39:00* Test Item Value Reference Range Interpretation Comments Platelet Count (test code = 777-3) 92 140-360 [facility] CenterAutpending sale to novant healthed blood segmented neutrophil count as percentage of total edeqiggnmj2321-43-68 04:39:00* Test Item Value Reference Range Interpretation Comments Neutrophils (%) (Auto) (test code = 17638-3) 73.3 38.7-80.0 [facility] CenterAutomated blood lymphocyte count as percentage ot total nznolkziwj3878-64-48 04:39:00* Test Item Value Reference Range Interpretation Comments Lymphocytes (%) (Auto) (test code = 736-9) 18.7 18.0-39.1 [facility] CenterAutomated blood monocyte count as percentage of total kqjzopedxe7202-97-30 04:39:00* Test Item Value Reference Range Interpretation Comments Monocytes (%) (Auto) (test code = 5905-5) 6.7 4.4-11.3 [facility] CenterAutomated blood eosinophil count as percentage of total jlomigxszj2598-01-70 04:39:00* Test Item Value Reference Range Interpretation Comments Eosinophils (%) (Auto) (test code = 713-8) 0.7 0.0-6.0 [facility] CenterAutomated blood basophil count as percentage of total kiqxcemmei6517-69-01 04:39:00* Test Item Value Reference Range Interpretation Comments Basophils (%) (Auto) (test code = 706-2) 0.3 0.0-1.0 [facility] CenterFluoroscopic procedure less than one hour uemosskg2392-94-78 04:39:00* Test Item Value Reference Range Interpretation Comments IM GRANULOCYTES % (test code = IM GRANULOCYTES %) 0.3 0.0- 1.0 [facility] CenterAutomated blood neutrophil count 2019-08-14 04:39:00* Test Item Value Reference Range Interpretation Comments Neutrophils # (Auto) (test code = 751-8) 5.1 2.1-6.9 [facility] CenterBlood lymphocytes count (number/volume) 2019-08-14 04:39:00* Test Item Value Reference Range Interpretation Comments Lymphocytes # (Auto) (test code = 59674-0) 1.3 1.0-3.2 [facility] CenterBlood monocytes automated count (number/volume)2019-08-14 04:39:00* Test Item Value Reference Range Interpretation Comments Monocytes # (Auto) (test code = 742-7) 0.5 0.2-0.8 [facility] CenterAutomated blood eosinophil count 2019-08-14 04:39:00* Test Item Value Reference Range Interpretation Comments Eosinophils # (Auto) (test code = 711-2) 0.1 0.0-0.4 [facility] CenterAutomated blood basophil count (count/volume)2019-08-14 04:39:00* Test Item Value Reference Range Interpretation Comments Basophils # (Auto) (test code = 704-7) 0.0 0.0-0.1 [facility] CenterFluoroscopic procedure less than one hour tooropyt9544-64-56 04:39:00* Test Item Value Reference Range Interpretation Comments Absolute Immature Granulocyte (auto (mabel t code = Absolute Immature Granulocyte (auto) 0.02 0-0.1 [facility] CenterProthrombin time (PT) in platelet poor plasma by coagulation kdwga8174-12-59 04:39:00* Test Item Value Reference Range Interpretation Comments Prothrombin Time (test code = 5902-2) 15.9 11.9-14.5 [facility] CenterINR in Platelet poor plasma by Coagulation efseb8256-46-63 04:39:00* Test Item Value Reference Range Interpretation Comments Prothromb Time International Ratio (test code = 6301-6) 1.19 Oral Anticoagulant Therapy INR Values:1. Low Intensity Therapy 1.5 - 2.02 . Moderate Intensity Therapy 2.0 - 3.03. High Intensity Therapy(1) 2.5 - 3. 54. High Intensity Therapy(2) 3.0 - 4.05. Panic Value INR > 5.[address] [facility] Hospitalerum or plasma total bilirubin measurement (mass/volume)2019-08-14 04:39:00* Test Item Value Reference Range Interpretation Comments Total Bilirubin (test code = 1975-2) 0.5 0.2-1.2 [facility] CenterFluoroscopic procedure less than one hour djwkigqn7698-20-75 04:39:00* Test Item Value Reference Range Interpretation Comments Aspartate Amino Transf (AST/SGOT) (test code = Aspartate Amino Transf (AST/SGOT)) 18 5-[address] [facility] Hospitalerum or plasma alanine aminotransferase measurement (enzymatic activity/volume)2019-08-14 04:39:00* Test Item Value Reference Range Interpretation Comments Alanine Aminotransferase (ALT/SGPT) (test code = 1742-6) 17 0-[address] [facility] Hospitalerum or plasma protein measurement (mass/volume)2019-08-14 04:39:00* Test Item Value Reference Range Interpretation Comments Total Protein (test code = 2885-2) 5.9 6.5-8.[address] [facility] Hospitalerum or plasma albumin measurement (mass/volume)2019-08-14 04:39:00* Test Item Value Reference Range Interpretation Comments Albumin (test code = 1751-7) 2.5 3.5-5.0 [facility] CenterPlasma globulin measurement (mass/volume) 2019-08-14 04:39:00* Test Item Value Reference Range Interpretation Comments Globulin (test code = 19270-4) 3.4 2.3-3.[address] [facility] Hospitalerum or plasma albumin/globulin mass zkism2088-29-82 04:39:00* Test Item Value Reference Range Interpretation Comments Albumin/Globulin Ratio (test code = 1759-0) 0.7 0.8-2.[address] [facility] Hospitalerum or plasma alkaline phosphatase measurement (enzymatic activity/volume)2019-08-14 04:39:00* Test Item Value Reference Range Interpretation Comments Alkaline Phosphatase (test code = 6768-6) 108 40-150 [facility] CenterCreatine Kinase LX7600-84-11 07:46:00* Test Item Value Reference Range Interpretation Comments Creatine Kinase MB (test code = 47877-5) 0.60 0-5.0 [facility] CenterTroponin [id number] 07:46:00* Test Item Value Reference Range Interpretation Comments Troponin I (test code = 76376-8) 0.018 0-0.300 [facility] CenterCreatine Tmehhb9296-96-43 07:24:00* Test Item Value Reference Range Interpretation Comments Creatine Kinase (test code = 2157-6) 64 30-[address] [facility] or plasma creatine kinase measurement (enzymatic activity/volume)2019-08-13 06:53:00* Test Item Value Reference Range Interpretation Comments Creatine Kinase (test code = 2157-6) 64 30-[address] [facility] or plasma creatine kinase MB measurement (mass/volume)2019-08-13 06:53:00* Test Item Value Reference Range Interpretation Comments Creatine Kinase MB (test code = 69231-6) 0.60 0-5.0 [facility] CenterTroponin I measurement by highly sensitive enzyme xjsuuoexnkj3464-26-73 06:53:00* Test Item Value Reference Range Interpretation Comments Troponin I (test code = 00388-3) 0.018 0-0.300 [facility] [id number] 04:56:00 [facility] [address] [address] Patient Name: VANESSA KHOURY MR #: [id number] : 1975 Age/Sex: 44/M Req #: [id number] Adm Physician: Ordered by: KAY PHILIPPE MD Report #: [id number] Location: ER Room/Bed: Procedure: 0404-[address]/CT CHEST WO Exam Date: Exam Time: REPORT STATUS: Signed CT chest without enha ncement CPT code: 24963 INDICATION: Fever, atelectasis TECHNIQUE : Thin collimation axial images obtained from the thoracic inlet to the level of the diaphragm without intravenous contrast. Dose reduction techniques u sed: Automated exposure control, adjustment of the mAs and/or kVp according to patient size, standardized low-dose protocol, and/or iterative reconstruction technique. RADIATION DOSE: Total DLP: 536.05 mGy*cm Estimate d effective dose: (DLP x 0.015 x size factor) mSv CTDIvol has been review ed. It is below the limits set by the Radiation Protocol Committee (RPC). COMPARISON: Chest x-ray 08/13/2019. CHEST FINDINGS: Lymph nodes: No en larged axillary, supraclavicular lymph nodes. Mediastinal lymph nodes are incr eased in number but measure up to 10 mm. No evidence of enlarged hilar lymph n odes given the lack of intravenous contrast. Thyroid: Visualized portions a re normal. Mediastinum: Tracheostomy is in appropriate position. The heart is normal in size. No pericardial effusion. The ascending aorta measures 3.5 c m. The main pulmonary artery measures 2.6 cm. The distal esophagus is distende d with air without significant mural thickening. No hiatal hernia. Lungs: Right: Near complete atelectasis of the lower lobe and atelectasis of the lateral segment of the middle lobe with bronchiectasis. The upper lobe contai ns several groundglass nodular foci. Left: Wispy bands of atelectasis in the inferior lower lobe. No nodules or infiltrates. Airways: Clear. Pleura: No pleural effusion or pleural based mass. Moderate eventration of the right diaphragm. ABDOMEN FINDINGS: Percutaneous gastrostomy is in appro priate position. There are subcentimeter calculi in the upper pole the right k idney. No soft tissue mass or lymphadenopathy. Bones: Compression fractur es of L1 and T7 of approximately 50%. Mild superior endplate compression of T5 . The spinal canal is patent. There are multiple healed left rib fractures. Soft tissues: Unremarkable. IMPRESSION: 1. Tiny groundglass nodul ar opacities in the right upper lobe may represent bronchopneumonia. 2. Mo derate eventration of the right diaphragm with atelectasis of the right middle lobe and lower lobe. 3. Small foci of atelectasis in the left lower lobe. 4 . Appropriate position of medical devices. 5. Tiny nonobstructing right intrar enal calculi. Signed by: Dr. David Bates MD on 08/13/2019 5:04 AM Dictated By: DAVID BATES MD 050 Transcribed By: SARAH on 08/13/19 0504 COPY TO: KAY PHILIPPE MD Lactic Acid Pvwfe7800-01-93 03:59:00* Test Item Value Reference Range Interpretation Comments Lactic Acid Level (test code = Lactic Acid Level) 1.0 0.5- 2.0 [facility] CenterUrine Vjxjy3858-86-99 03:41:00* Test Item Value Reference Range Interpretation Comments Urine Color (test code = 5778-6) ASHISH YELLOW H [facility] CenterUrine Halkojx0788-25-77 03:41:00* Test Item Value Reference Range Interpretation Comments Urine Clarity (test code = 27602-6) HAZY CLEAR [facility] CenterUrine Specific Emcgwtv3623-08-45 03:41:00 * Test Item Value Reference Range Interpretation Comments Urine Specific [place] (test code = 5811-5) 1.030 1.010-1.02 5 H [facility] CenterUrine [id number] 03:41:00* Test Item Value Reference Range Interpretation Comments Urine pH (test code = 65777-0) 6 5-7 [facility] CenterU[facility] Leukocyte Nvhxyzsw2092-67-63 03:41:00* Test Item Value Reference Range Interpretation Comments Urine Leukocyte Esterase (test code = 5799-2) NEGATIVE NEGATIVE [facility] Wqkaoyd5986-61-66 03:41:00* Test Item Value Reference Range Interpretation Comments Urine Nitrite (test code = 13466-2) NEGATIVE NEGATIVE [facility] CenterU[facility] Tnicbws8620-18-45 03:41:00* Test Item Value Reference Range Interpretation Comments Urine Protein (test code = 5804-0) 2+ NEGATIVE H [facility] CenterUrine Glucose (UA)2019-08-13 03:41:00* Test Item Value Reference Range Interpretation Comments Urine Glucose (UA) (test code = 2349-9) NEGATIVE NEGATIVE [facility] CenterU[facility] Xdtcbzp3047-71-06 03:41:00* Test Item Value Reference Range Interpretation Comments Urine Ketones (test code = 70425-3) NEGATIVE NEGATIVE [facility] Cxewdualrpsw4283-18-82 03:41:00* Test Item Value Reference Range Interpretation Comments Urine Urobilinogen (test code = 00986-4) 1 0.2-1 [facility] CenterU[facility] Tigahbkao7830-83-22 03:41:00* Test Item Value Reference Range Interpretation Comments Urine Bilirubin (test code = 1978-6) NEGATIVE NEGATIVE [facility] CenterU[facility] Jwohl5590-97-31 03:41:00* Test Item Value Reference Range Interpretation Comments Urine Blood (test code = 17548-8) NEGATIVE NEGATIVE [facility] CenterU[facility] [id number] 03:41:00* Test Item Value Reference Range Interpretation Comments Urine WBC (test code = 5821-4) 0-5 0-5 [facility] CenterU[facility] [id number] 03:41:00* Test Item Value Reference Range Interpretation Comments Urine RBC (test code = 55515-3) NONE 0-5 [facility] CenterU[facility] Imanyjwm3827-79-11 03:41:00* Test Item Value Reference Range Interpretation Comments Urine Bacteria (test code = 64462-4) FEW NONE [facility] CenterUrine Epithelial Rilri3728-13-80 03:41:00 * Test Item Value Reference Range Interpretation Comments Urine Epithelial Cells (test code = 56007-5) FEW NONE [facility] CenterInfluenza Virus Types A,B Antigen 2019-08-13 03:10:00* Test Item Value Reference Range Interpretation Comments Influenza Virus Types A,B Antigen (test code = 52415-3) NEGATIVE NEGATIVE [facility] CenterGroup A Streptococcus Lvwady0775-67-83 03:10:00* Test Item Value Reference Range Interpretation Comments Group A Streptococcus Screen (test code = 12532-4) NEGATIVE NEG ATIVE [facility] CenterCHEST SINGLE (PORTABLE)2019-08-13 03:06:[address] [address] Patient Name: VANESSA KHOURY MR #: [id number] : 1975 Age/Sex: 44/M Req #: [id number] Adm Physician: Ordered by: KAY PHILIPPE MD Report #: [id number] Location: ER Room/Bed: Procedure: 0404-001 4 DX/CHEST SINGLE (PORTABLE) Exam Date: 08/13/19 Jani gutierrez Time: 0248 REPORT STATUS: Signed EXAMINATION: CHEST SINGLE (PORTABLE) COMPARISON: None INDICATI ON: Fever fever [id number] 0248 Y DISCUSSION: Frontal view o f the chest obtained at 0248 hours. HEART AND MEDIASTINUM: The cardiomedia stinal silhouette is unremarkable. LINES: Tracheostomy is midline L UNGS: Moderate eventration of the right diaphragm with overlying atelectasis. No pneumonia or pulmonary edema. PLEURA: No pleural effusion or pneumotho rax. BONES AND SOFT TISSUES: No focal osseous lesion. The soft tissues are normal. IMPRESSION: No infiltrates. Moderate eventration of the righ t diaphragm. Signed by: Dr. David Bates MD on 08/13/2019 3:17 AM Dictated By: DAVID BATES MD 6 Transcribed By: SARAH on 08/13/19316 COPY TO: KAY PHILIPPE MD Fluoroscopic procedure less than one hour hjyxikyr7489-05-14 03:00:00* Test Item Value Reference Range Interpretation Comments Lactic Acid Level (test code = Lactic Acid Level) 1.0 0.5- 2.0 [facility] CenterUrine color ypgqentngunkz9176-92-24 02:20:00* Test Item Value Reference Range Interpretation Comments Urine Color (test code = 5778-6) ASHISH YELLOW [facility] CenterUrine jpkaobu3326-58-24 02:20:00* Test Item Value Reference Range Interpretation Comments Urine Clarity (test code = 69954-9) HAZY CLEAR [facility] Hospital[facility] gravity of Urine by Test strip 2019-08-13 02:20:00* Test Item Value Reference Range Interpretation Comments Urine Specific [place] (test code = 5811-5) 1.030 1.010-1.02 5 [facility] CenterUrine pH measurement by automated test bdyyd8153-15-60 02:20:00* Test Item Value Reference Range Interpretation Comments Urine pH (test code = 97875-4) 6 5-7 [facility] CenterUrine leukocyte esterase detection by rxqkbmtb5955-19-28 02:20:00* Test Item Value Reference Range Interpretation Comments Urine Leukocyte Esterase (test code = 5799-2) NEGATIVE NEGATIVE [facility] CenterUrine nitrite dllbqftxm1979-09-35 02:20:00* Test Item Value Reference Range Interpretation Comments Urine Nitrite (test code = 76535-3) NEGATIVE NEGATIVE [facility] CenterUrine protein measurement by test strip (mass/volume)2019-08-13 02:20:00* Test Item Value Reference Range Interpretation Comments Urine Protein (test code = 5804-0) 2+ NEGATIVE [facility] CenterUrine glucose xjcygkwus4411-64-04 02:20:00* Test Item Value Reference Range Interpretation Comments Urine Glucose (UA) (test code = 2349-9) NEGATIVE NEGATIVE [facility] CenterUrine ketones detection by automated test pjpaq7531-62-06 02:20:00* Test Item Value Reference Range Interpretation Comments Urine Ketones (test code = 64714-5) NEGATIVE NEGATIVE [facility] CenterUrine urobilinogen measurement by test strip (mass/volume)2019-08-13 02:20:00* Test Item Value Reference Range Interpretation Comments Urine Urobilinogen (test code = 25736-0) 1 0.2-1 [facility] CenterUrine total bilirubin measurement (mass/volume)2019-08-13 02:20:00* Test Item Value Reference Range Interpretation Comments Urine Bilirubin (test code = 1978-6) NEGATIVE NEGATIVE [facility] CenterUrine erythrocytes jcsupbbqm1481-46-33 02:20:00* Test Item Value Reference Range Interpretation Comments Urine Blood (test code = 59275-8) NEGATIVE NEGATIVE [facility] CenterAutomated urine sediment leukocyte count by microscopy (number/high power field)2019-08-13 02:20:00* Test Item Value Reference Range Interpretation Comments Urine WBC (test code = 5821-4) 0-5 0-5 [facility] CenterErythrocytes detection in urine sediment by light nnxtcpoqro2256-99-14 02:20:00* Test Item Value Reference Range Interpretation Comments Urine RBC (test code = 21191-7) NONE 0-5 [facility] CenterBacteria detection in urine sediment by light uwoqyvxjun6558-92-86 02:20:00* Test Item Value Reference Range Interpretation Comments Urine Bacteria (test code = 13938-8) FEW NONE [facility] CenterEpithelial cells detection in urine sediment by light xphipefvrv2277-08-58 02:20:00* Test Item Value Reference Range Interpretation Comments Urine Epithelial Cells (test code = 04420-0) FEW NONE [facility] CenterActivated Partial Thromboplast Time 2019-08-13 02:10:00* Test Item Value Reference Range Interpretation Comments Activated Partial Thromboplast Time (test code = 86443-0) 32.7 23.8-35.5 [facility] CenterArterial Blood bY0967-77-82 02:09:00* Test Item Value Reference Range Interpretation Comments Arterial Blood pH (test code = 2744-1) 7.49 7.31-7.41 H [facility] CenterArterial Blood Partial Pressure CO2 2019-08-13 02:09:00* Test Item Value Reference Range Interpretation Comments Arterial Blood Partial Pressure CO2 (test code = 2019-8) 32 35-45 L [facility] CenterArterial Blood OHY00078-61-51 02:09:00* Test Item Value Reference Range Interpretation Comments Arterial Blood HCO3 (test code = 1960-4) 25 23-28 [facility] CenterArterial Blood Base Urgqsg4185-89-17 02:09:00* Test Item Value Reference Range Interpretation Comments Arterial Blood Base Excess (test code = 1925-7) 1.0 -2-3 [facility] CenterFiO22020-04-04 02:09:00* Test Item Value Reference Range Interpretation Comments FiO2 (test code = FiO2) 80 40 VENTURI SET UPMemorial [facility] CenterFluoroscopic procedure less than one hour ydokejkb9423-69-86 02:00:00* Test Item Value Reference Range Interpretation Comments Coronavirus (PCR) (test code = Coronavirus (PCR)) NOT DETECTED NOTD ETECTED SARS-COV-2 (COVID19), HIGHRISK, RT-PCRNegative results do not preclude SARS-CoV- 2 infection and should not be used as the sole basis for patient management deci sions. Negative results must be combined with clinical observations, patient his tory, and epidemiological information. Optimum specimen types and timing for pea k viral levels during infections caused by SARS-CoV-2 have not been determined. Collection of multiple specimens ot types of specimens may be necessary to detec t virus. Improper specimen collection and handling, sequence variability under p rimers/probes, or organism present below the limit of detection may lead to fals e negative results. Positive and negative predictive values of testing are highl y dependent on prevalance. False negative test results are more likely when prev alence is high.The expected result is negative (not detected).The SARS-CoV-2 mabel t is intended for the qualitative detection of nucleic acid from SARS-CoV-2 in n asopharyngeal and oropharyngeal swab samples from patients who meet COVID-19 cli nical and or epidemiological criteria. For lower respiratory tract specimens, th e assay is submitted for authoriztion by FDA under an Emergency Use Authorizatio n (EUA). Testing methodology is real time RT-PCR. If received as separate collec tion devices, nasopharygeal and oropharyngeal specimens are combined for analysi s. Additional specimens may be split to a separate accession for analysi and rep orting as this test includes a single unit of service.Test results must be corre lated with clinical presentation and evaluated in the context of other laborator y and epidemiologic data. Test performance can be affected because the epidemiol ogy and clinical spectrum of infection caused by SARS-CoV-2 is not fully known. For example, the optimum types of specimens to collect and when during the cours e of infection these specimens are most likely to contain detectable viral RNA m ay not be known.This test has not been Food and Drug Administration (FDA) cleare d or approved and has been authorized by FDA under an Emergency Use Authorizatio n (EUA). The test is only authorized for the duration of the declaration that ci rcumstances exist justifying the authorization of emergency use of in vitro diag nostic tests for detection and/or diagnosis of SARS-CoV-2 under section 564(b) o f the Act, 21 U.S.C. section 360bbb-3(b)(1), unless the authorization is termina giovanna or revoked sooner. [facility] are certified under the C linical Laboratory Improvement Amendments of 1988 (CLIA), 42 U.S.C. section 263a , to perform high complexity tests.Specimen sent to [facility] and testing performed by [facility] [address] [place], [place] [phone] Director: Jose Alberto M.D.[facility] # [id number] [facility] HospitalFluoroscopic procedure less than one hour wmylrdwt9548-66-55 02:00:00* Test Item Value Reference Range Interpretation Comments Coronavirus (PCR) (test code = Coronavirus (PCR)) NOT DETECTED NOTD ETECTED SARS-COV-2 (COVID19), HIGHRISK, RT-PCRNegative results do not preclude SARS-CoV- 2 infection and should not be used as the sole basis for patient management deci sions. Negative results must be combined with clinical observations, patient his tory, and epidemiological information. Optimum specimen types and timing for pea k viral levels during infections caused by SARS-CoV-2 have not been determined. Collection of multiple specimens ot types of specimens may be necessary to detec t virus. Improper specimen collection and handling, sequence variability under p rimers/probes, or organism present below the limit of detection may lead to fals e negative results. Positive and negative predictive values of testing are highl y dependent on prevalance. False negative test results are more likely when prev alence is high.The expected result is negative (not detected).The SARS-CoV-2 mabel t is intended for the qualitative detection of nucleic acid from SARS-CoV-2 in n asopharyngeal and oropharyngeal swab samples from patients who meet COVID-19 cli nical and or epidemiological criteria. For lower respiratory tract specimens, th e assay is submitted for authoriztion by FDA under an Emergency Use Authorizatio n (EUA). Testing methodology is real time RT-PCR. If received as separate collec tion devices, nasopharygeal and oropharyngeal specimens are combined for analysi s. Additional specimens may be split to a separate accession for analysi and rep orting as this test includes a single unit of service.Test results must be corre lated with clinical presentation and evaluated in the context of other laborator y and epidemiologic data. Test performance can be affected because the epidemiol ogy and clinical spectrum of infection caused by SARS-CoV-2 is not fully known. For example, the optimum types of specimens to collect and when during the cours e of infection these specimens are most likely to contain detectable viral RNA m ay not be known.This test has not been Food and Drug Administration (FDA) cleare d or approved and has been authorized by FDA under an Emergency Use Authorizatio n (EUA). The test is only authorized for the duration of the declaration that ci rcumstances exist justifying the authorization of emergency use of in vitro diag nostic tests for detection and/or diagnosis of SARS-CoV-2 under section 564(b) o f the Act, 21 U.S.C. section 360bbb-3(b)(1), unless the authorization is termina giovanna or revoked sooner. [facility] are certified under the C linical Laboratory Improvement Amendments of 1988 (CLIA), 42 U.S.C. section 263a , to perform high complexity tests.Specimen sent to [facility] and testing performed by [facility] [address] [place] [address] [phone] Director: Jose Alberto M.D.CLIA # [id number] Hermann [facility] Medical CenterArterial blood pH measurement 2019-08-13 01:40:00* Test Item Value Reference Range Interpretation Comments Arterial Blood pH (test code = 2744-1) 7.49 7.31-7.41 [facility] CenterpCO2 FyvW5225-02-91 01:40:00* Test Item Value Reference Range Interpretation Comments Arterial Blood Partial Pressure CO2 (test code = 2019-8) 32 35-45 [facility] CenterArterial blood bicarbonate measurement (moles/volume)2019-08-13 01:40:00* Test Item Value Reference Range Interpretation Comments Arterial Blood HCO3 (test code = 1960-4) 25 23-28 [facility] CenterArterial blood base excess by calculation 2019-08-13 01:40:00* Test Item Value Reference Range Interpretation Comments Arterial Blood Base Excess (test code = 1925-7) 1.0 -2-3 [facility] CenterFluoroscopic procedure less than one hour pewicetq5065-08-64 01:40:00* Test Item Value Reference Range Interpretation Comments FiO2 (test code = FiO2) 80 40 VENTURI SET [facility]Ar[facility] pH dsxjfcezpnd4761-76-99 01:40:00* Test Item Value Reference Range Interpretation Comments Arterial Blood pH (test code = 2744-1) 7.49 7.31-7.41 [facility] CenterpCO2 PvdJ3400-68-72 01:40:00* Test Item Value Reference Range Interpretation Comments Arterial Blood Partial Pressure CO2 (test code = 2019-8) 32 35-45 [facility] CenterArterial blood bicarbonate measurement (moles/volume)2019-08-13 01:40:00* Test Item Value Reference Range Interpretation Comments Arterial Blood HCO3 (test code = 1960-4) 25 23-28 [facility] CenterArterial blood base excess by calculation 2019-08-13 01:40:00* Test Item Value Reference Range Interpretation Comments Arterial Blood Base Excess (test code = 1925-7) 1.0 -2-3 [facility] CenterFluoroscopic procedure less than one hour wbzbrcmp4869-91-15 01:40:00* Test Item Value Reference Range Interpretation Comments FiO2 (test code = FiO2) 80 40 VENTURI SET [facility] AustinActivated partial thromboplastin time (aPTT) in platelet poor plasma by coagulation assay 2019-08-13 01:25:00* Test Item Value Reference Range Interpretation Comments Activated Partial Thromboplast Time (test code = 80857-8) 32.7 23.8-35.5 [facility] CenterInfluenza virus A and B antigen identification by toyguwxghlkbijnaqe9452-89-24 01:25:00* Test Item Value Reference Range Interpretation Comments Influenza Virus Types A,B Antigen (test code = 09042-0) NEGATIVE NEGATIVE [facility] CenterFluoroscopic procedure less than one hour kdnyhlto4525-24-70 01:25:00* Test Item Value Reference Range Interpretation Comments Chlamydia pneumoniae DNA (PCR) (test code = Chlamydia pneumoniae DNA (PCR)) NOT DETECTED NOT DETECT [facility] CenterRespiratory virus fjieq2446-27-70 01:25:00* Test Item Value Reference Range Interpretation Comments Influenza Type A (RT-PCR) (test code = 417068400) NOT DETECTED NOT DETECT [facility] rrxcxfby5125-14-76 01:25:00* Test Item Value Reference Range Interpretation Comments Mycoplasma pneumoniae (PCR) (test code = Mycoplasma pn eumoniae (PCR)) NOT DETECTED NOT DETECT [facility] HospitalRespiratory virus ukydv4225-79-20 01:25:00* Test Item Value Reference Range Interpretation Comments Influenza Type B (RT-PCR) (test code = 986538424) NOT DETECTED NOT DETECT [facility] HospitalRespiratory virus opwsh1989-26-81 01:25:00* Test Item Value Reference Range Interpretation Comments Respiratory Syncytial Virus (PCR) (test code = 122997963) NO T DETECTED NOT DETECT [facility] srifv4293-51-01 01:25:00* Test Item Value Reference Range Interpretation Comments Bordetella pertussis DNA (PCR) (test code = 029977139) NOT DETEC GIOVANNA NOT DETECT [facility] HospitalRespiratory virus ypsok8528-67-87 01:25:00* Test Item Value Reference Range Interpretation Comments Parainfluenza Type 1 (PCR) (test code = 173136185) NOT DETECTED NOT DETECT [facility] [facility] [id number] 01:25:00* Test Item Value Reference Range Interpretation Comments Parainfluenza Type 2 (PCR) (test code = 094949711) NOT DETECTED NOT DETECT [facility] [id number] 01:25:00* Test Item Value Reference Range Interpretation Comments Parainfluenza Type 3 (PCR) (test code = 750126556) NOT DETECTED NOT DETECT [facility] [id number] 01:25:00* Test Item Value Reference Range Interpretation Comments Parainfluenza Type 4 (PCR) (test code = Parainfluenza Type 4 (PCR)) NOT DETECTED NOT DETECT [facility] [id number] 01:25:00* Test Item Value Reference Range Interpretation Comments Rhinovirus (PCR) (test code = 217916032) NOT DETECTED NOT DETECT [facility] [id number] 01:25:00* Test Item Value Reference Range Interpretation Comments Human Metapneumovirus (PCR) (test code = 836666657) NOT DETECTED NO T DETECT [facility] [id number] 01:25:00* Test Item Value Reference Range Interpretation Comments Adenovirus (PCR) (test code = 459108157) NOT DETECTED NOT DETECT [facility]Flu[facility] procedure less than one hour [id number] 01:25:00* Test Item Value Reference Range Interpretation Comments Coronavirus Type 229E (PCR) (test code = Coronavirus T ype 229E (PCR)) NOT DETECTED NOT DETECT Other viruses and bacteria not targeted by this PCR panel cannot be excluded; th erefore clinical correlation and follow up of serology, culture results, and oth er molecular studies is required. The results are not intended to be used as the sole means for clinical diagnosis or patient management decisions. This sample was tested at [facility] using the [employer] Respiratory Panel. It is FDA cleared and has been verified and approved by [facility] for clinical use on nasopharyngeal swa b specimens.ALL RESPIRATORY VIRAL PANEL Testing performed at [place], [place] [address]RESULTS HAVE BEEN CALLED TO THE [facility] [id number] 01:25:00* Test Item Value Reference Range Interpretation Comments Coronavirus Type HKU1 (PCR) (test code = Coronavirus T ype HKU1 (PCR)) NOT DETECTED NOT DETECT [facility] less than one hour [id number] 01:25:00* Test Item Value Reference Range Interpretation Comments Coronavirus Type NL63 (PCR) (test code = Coronavirus T ype NL63 (PCR)) NOT DETECTED NOT DETECT [facility] less than one hour [id number] 01:25:00* Test Item Value Reference Range Interpretation Comments Coronavirus Type OC43 (PCR) (test code = Coronavirus T ype OC43 (PCR)) NOT DETECTED NOT DETECT [facility] pyogenes antigen detection in [id number] 01:25:00* Test Item Value Reference Range Interpretation Comments Group A Streptococcus Screen (test code = 40051-6) NEGATIVE NEG ATIVE [facility] [id number] 01:25:00* Test Item Value Reference Range Interpretation Comments Blood Culture (test code = 05157348) NO GROWTH AFTER 5 DAYS, FINAL REPORT [facility] CenterInfluenza virus A and B antigen identification by [id number] 01:25:00* Test Item Value Reference Range Interpretation Comments Influenza Virus Types A,B Antigen (test code = 16536-6) NEGATIVE NEGATIVE [facility] CenterFlu[facility] procedure less than one hour [id number] 01:25:00* Test Item Value Reference Range Interpretation Comments Chlamydia pneumoniae DNA (PCR) (test code = Chlamydia pneumoniae DNA (PCR)) NOT DETECTED NOT DETECT [facility] [id number] 01:25:00* Test Item Value Reference Range Interpretation Comments Influenza Type A (RT-PCR) (test code = 016587449) NOT DETECTED NOT DETECT [facility] CenterFlu[facility] procedure less than one hour [id number] 01:25:00* Test Item Value Reference Range Interpretation Comments Mycoplasma pneumoniae (PCR) (test code = Mycoplasma pn eumoniae (PCR)) NOT DETECTED NOT DETECT [facility] [id number] 01:25:00* Test Item Value Reference Range Interpretation Comments Influenza Type B (RT-PCR) (test code = 730424368) NOT DETECTED NOT DETECT [facility] [id number] 01:25:00* Test Item Value Reference Range Interpretation Comments Respiratory Syncytial Virus (PCR) (test code = 784558330) NO T DETECTED NOT DETECT [facility] virus [id number] 01:25:00* Test Item Value Reference Range Interpretation Comments Bordetella pertussis DNA (PCR) (test code = 894412406) NOT DETEC GIOVANNA NOT DETECT [facility] Center[facility] virus [id number] 01:25:00* Test Item Value Reference Range Interpretation Comments Parainfluenza Type 1 (PCR) (test code = 696400416) NOT DETECTED NOT DETECT [facility] [id number] 01:25:00* Test Item Value Reference Range Interpretation Comments Parainfluenza Type 2 (PCR) (test code = 535346749) NOT DETECTED NOT DETECT [facility] Center[facility] virus [id number] 01:25:00* Test Item Value Reference Range Interpretation Comments Parainfluenza Type 3 (PCR) (test code = 772752847) NOT DETECTED NOT DETECT [facility] CenterFlu[facility] procedure less than one hour [id number] 01:25:00* Test Item Value Reference Range Interpretation Comments Parainfluenza Type 4 (PCR) (test code = Parainfluenza Type 4 (PCR)) NOT DETECTED NOT DETECT [facility] Center[facility] virus [id number] 01:25:00* Test Item Value Reference Range Interpretation Comments Rhinovirus (PCR) (test code = 012939728) NOT DETECTED NOT DETECT [facility] [id number] 01:25:00* Test Item Value Reference Range Interpretation Comments Human Metapneumovirus (PCR) (test code = 671289428) NOT DETECTED NO T DETECT [facility] Center[facility] virus [id number] 01:25:00* Test Item Value Reference Range Interpretation Comments Adenovirus (PCR) (test code = 995923662) NOT DETECTED NOT DETECT [facility] CenterFlu[facility]oscopic procedure less than one hour [id number] 01:25:00* Test Item Value Reference Range Interpretation Comments Coronavirus Type 229E (PCR) (test code = Coronavirus T ype 229E (PCR)) NOT DETECTED NOT DETECT Other viruses and bacteria not targeted by this PCR panel cannot be excluded; th erefore clinical correlation and follow up of serology, culture results, and ot er molecular studies is required. The results are not intended to be used as the sole means for clinical diagnosis or patient management decisions. This sample was tested at [facility] using the [employer] Respiratory Panel. It is FDA cleared and has been verified and approved by [facility] for clinical use on nasopharyngeal swa b specimens.ALL RESPIRATORY VIRAL PANEL Testing performed at [facility] [place] [address] [id number] HAVE BEEN CALLED TO THE [place] [facility] less than one hour [id number] 01:25:00* Test Item Value Reference Range Interpretation Comments Coronavirus Type HKU1 (PCR) (test code = Coronavirus T ype HKU1 (PCR)) NOT DETECTED NOT DETECT [facility] CenterFlu[facility]oscopic procedure less than one hour [id number] 01:25:00* Test Item Value Reference Range Interpretation Comments Coronavirus Type NL63 (PCR) (test code = Coronavirus T ype NL63 (PCR)) NOT DETECTED NOT DETECT [facility] CenterFluoroscopic procedure less than one hour [id number] 01:25:00* Test Item Value Reference Range Interpretation Comments Coronavirus Type OC43 (PCR) (test code = Coronavirus T ype OC43 (PCR)) NOT DETECTED NOT DETECT [facility] pyogenes antigen detection in [id number] 01:25:00* Test Item Value Reference Range Interpretation Comments Group A Streptococcus Screen (test code = 24896-1) NEGATIVE NEG ATIVE [facility] Center[facility] [id number] 01:25:00* Test Item Value Reference Range Interpretation Comments Blood Culture (test code = 09881894) NO GROWTH AFTER 5 DAYS, FINAL REPORT [facility]
== END 2020-01-13 20:35 | disposition home or self-care (01) ==
LOC: ER 20:11
DX: Z43.1 Encounter for attention to gastrostomy (principal); E11.9 Type 2 diabetes mellitus without complications; R49.1 Aphonia; F41.9 Anxiety disorder, unspecified; D64.9 Anemia, unspecified; Z87.820 Personal history of traumatic brain injury; Z91.5 Personal history of self-harm
CPT/HCPCS: 99282

== ENCOUNTER 2020-01-24 08:47 | Emergency (ER) | payer MEDICARE, OTHER ==
[~2020-01-24] VITALS: Ht 167.6 cm; Wt 59.0 kg
--- NOTE | 2020-01-24 08:58 | NUR ---
CALLED [facility] FOR RETURN TRIP ONE HR FROM NOW.
--- OUTSIDE RECORDS SUMMARY | 2020-01-24 09:05 | XMS REPORT | Continuity of Care Document ---
Author Author [facility] t Organization [facility] Address [address] [place] [address] Phone Unavailable Care Team Providers Care Gore Cutter Name Role Phone MALLORY ROJAS, MD PATTON PCP Karen JASON Attphys Unavailable SANDHIR, S AMBICA Attphys Unavailable TEJADA, SOUHEIL Attphys Unavailable TEJADA, SOUHEIL Admphys Unavailable Payers Payer Name Policy Type Policy Number Effective Date Expiration Date S yumiko [facility] [id number] 2020 00:00:00 [facility] [id number] 2019 00:00:00 [facility] Medicare A & B [id number] 2014 00:00:00 [facility] Cdc Review Covid19 [id number] [facility] Christine Medicaid [id number] 2019 00:00:00 [facility] Problems Condition Name Condition Details Condition Category Status Onset Date Resolution Date Last Treatment Date Treating Clinician Comments Source Body temperature above normal Hyperthermia Problem Active [facility] Pneumonia Pneumonia Problem Active [facility] Sepsis Problem Active [facility] Hypoxemia Problem Active [facility] Transient hypotension Problem Active [facility] Encounter for percutaneous endoscopic gastrostomy Problem Active [facility] Allergies, Adverse Reactions, Alerts Allergy Name Allergy Type Status Severity Reaction(s) Onset Date Inacti ve Date Treating Clinician Comments Source No Known Allergies DA Active U 2020-01-20 00:00:00 [facility] No Known Allergies DA Active U 2019-10-26 00:00:00 [facility] No Known Allergies DA Active U 2019-10-09 00:00:00 [facility] No Known Drug Allergies DA Active U 2019-09-12 00:00:00 [facility] No Known Contrast Allergies DA Active U 2007-08-26 00:00: 00 [facility] No Known Drug Allergies DA Active U 2007-08-26 00:00:00 [facility] No Known Food Allergies DA Active U 2007-08-26 00:00:00 [facility] No Known Other Allergies DA Active U 2007-08-26 00:00:00 [facility] Social History Social Habit Start Date Stop Date Quantity Comments Source Sex Assigned At 1975 00:00:00 1975 00[birth year]:00 Male [facility] Medications Ordered Medication Name Filled Medication Name Start Date Stop Da te Current Medication? Ordering Clinician Indication Dosage Frequency Signature (SIG) Comments Components Source Acetaminophen Acetaminophen Yes 650 Every 4 Hours as needed for Elevated Temperature [facility] Albuterol Sulfate Albuterol Sulfate Yes .0 83 Every 4 Hours as needed for Shortness Of Breath [facility] Albuterol Sulfate Albuterol Sulfate Yes 3 Ever y 8 Hours [facility] Baclofen Baclofen Yes 30 Every 8 Hours [facility] Carbamide Peroxide (Debrox) 15 Ml DROPS Carbamide Peroxide ( Debrox) 15 Ml DROPS Yes 5 Mon And Fri [facility] Clonazepam Clonazepam Yes 1 Every 8 Hours [facility] Folic Acid Folic Acid Yes 1 Bedtime [facility] Keppra Solution Keppra Solution Yes 1000 Twice A Day [facility] Ketoconazole (Nizoral A-D) 125 Ml SHAMPOO Ketoconazole (Nizoral A-D) 125 Ml SHAMPOO Yes 1 .wed [facility] Levalbuterol Hcl (Xopenex) 0.63 Mg/3 Ml VIAL.NEB Leval buterol Hcl (Xopenex) 0.63 Mg/3 Ml VIAL.NEB Yes 1 Every 8 Hours as needed for Shortness Of Breath [facility] Multivitamin With Minerals (Multiple Vitamin) 1 Each T ABLET Multivitamin With Minerals (Multiple Vitamin) 1 Each TABLET Yes 1 Daily [facility] Polyethylene Glycol 3350 Polyethylene Glycol 3350 Yes 17 Daily [facility] Potassium Bicarbonate/Cit Ac (Effer-K 20 Meq Tablet Ef f) 20 Meq TABLET.EFF Potassium Bicarbonate/Cit Ac (Effer-K 20 Meq Tablet Eff) 20 Meq TABLET.EFF Yes 20 Mon,Wed,Fri [facility] Scopolamine Scopolamine Yes 1 Every 72 Hours [facility] Sennosides (Senna Laxative) 8.6 Mg TABLET Sennosides ( Senna Laxative) 8.6 Mg TABLET Yes 1 Daily [facility] Thiamine Hcl (B-1) 100 Mg TABLET Thiamine Hcl (B-1) 100 Mg TABLET Yes 100 Daily [facility] Vital Signs Vital Name Observation Time Observation Value Comments Source Weight 2020-01-13 20:15:00 130 [lb_av] [facility] BMI (Body Mass Index) 2020-01-13 20:15:00 21.0 kg/m2 [facility] Weight 2019-12-02 11:40:00 130 [lb_av] [facility] BMI (Body Mass Index) 2019-12-02 11:40:00 21.0 kg/m2 [facility] Body Temperature 2019-10-13 11:06:00 98.0 [degF] [facility] Weight 2019-10-13 08:47:00 181 [lb_av] [facility] BMI (Body Mass Index) 2019-10-13 08:47:00 25.2 kg/m2 [facility] Procedures Procedure Date / Time Performed Performing Clinician Sourc e RPLC GTUBE NO REVJ TRC 2019-10-13 00:00:00 [facility] Computed tomography of chest without contrast 2019-08-13 00: 00:00 DENAE KAY Matheus [facility] Plan of Care Planned Activity Planned Date Details Comments Source Instructions GI Tube Care [facility] Encounters Start Date/Time End Date/Time Encounter Type Admission Type Attendi [facility] Care Department Encounter ID Source 2020-01-13 20:11:00 2020-01-13 20:35:00 Departed Emergency Room [facility] [id number] [facility] 2019-12-02 12:00:00 2019-12-02 16:52:00 Departed Emergency Room 1 RAJAN JASON [facility] [id number] [facility] 2019-10-13 08:48:00 2019-10-13 11:48:00 Departed Emergency Room 1 GISELA LAYNE [facility] [id number] [facility] 2019-08-13 05:31:00 2019-08-15 14:30:00 Discharged Inpatient 1 ABDI TEJADA [facility] [id number] [facility] Results Test Description Test Time Test Comments Results Result Comments Source BASIC METABOLIC PANEL 2020-01-20 22:26:00 Test Item SODIUM (test code = NA) 150 mmol/L 136-145 H POTASSIUM (test code = K) 3.7 mmol/L 3.5-5.1 N CHLORIDE (test code = CL) 110.0 mmol/L 98-107 H CARBON DIOXIDE (test code = CO2) 32.0 mmol/L 21-32 N ANION GAP (test code = GAP) 11.7 10-20 N GLUCOSE (test code = GLU) 105 mg/dL 74-106 N BLOOD UREA NITROGEN (test code = BUN) 24 mg/dL 7-18 H GLOMERULAR FILTRATION RATE (test code = GFR) > 60 mL/min >=60 Estimated GFR by using Modified MDRD formula.Chronic kidney disease is defined as either kidney damageor GFR <60 mL/min/1.73 m2 for >3 months. CREATININE (test code = CREAT) 0.70 mg/dL 0.7-1.3 N BUN/CREATININE RATIO (test code = BUN/CREA) 34.8 10-20 H CALCIUM (test code = CA) 10.2 mg/dL 8.5-10.1 H BASIC METABOLIC [id number] 22:24:00* Test Item Value Reference Range Interpretation Comments SODIUM (test code = NA) 150 mmol/L 136-145 H POTASSIUM (test code = K) 3.7 mmol/L 3.5-5.1 N CHLORIDE (test code = CL) 110.0 mmol/L 98-107 H CARBON DIOXIDE (test code = CO2) mmol/L 21-32 ANION GAP (test code = GAP) 10-20 GLUCOSE (test code = GLU) mg/dL 74-106 BLOOD UREA NITROGEN (test code = BUN) mg/dL 7-18 GLOMERULAR FILTRATION RATE (test code = GFR) mL/min >=60 CREATININE (test code = CREAT) mg/dL 0.7-1.3 BUN/CREATININE RATIO (test code = BUN/CREA) 10-20 CALCIUM (test code = CA) 10.2 mg/dL 8.5-10.1 H CBC W/AUTO [id number] 22:18:00* Test Item Value Reference Range Interpretation Comments WHITE BLOOD CELL (test code = WBC) 7.8 K/mm3 4.5-12.5 N RED BLOOD CELL (test code = RBC) 5.26 mill/mm3 4.0-5.8 N HEMOGLOBIN (test code = HGB) 15.7 gram/dL 13.0-17.5 N HEMATOCRIT (test code = HCT) 48.3 % 42.0-52.0 N MEAN CELL VOLUME (test code = MCV) 91.8 fL 80-98 N MEAN CELL HGB (test code = MCH) 29.8 picogram 27.0-33.0 N MEAN CELL HGB CONCETRATION (test code = MCHC) 32.5 gram/dL 33.0-36. 0 L RED CELL DISTRIBUTION WIDTH (test code = RDW) 13.5 % 11.6-16. 2 N RED CELL DISTRIBUTION WIDTH SD (test code = RDW-SD) 45.5 fL 37 .0-51.0 N PLATELET COUNT (test code = PLT) 188 K/mm3 150-450 N MEAN PLATELET VOLUME (test code = MPV) 13.0 fL 6.7-11.0 H NEUTROPHIL % (test code = NT%) 64.1 % 39.0-69.0 N IMMATURE GRANULOCYTE % (test code = IG%) 0.3 % 0.0-5.0 N LYMPHOCYTE % (test code = LY%) 21.5 % 25.0-55.0 L MONOCYTE % (test code = MO%) 11.0 % 0.0-10.0 H EOSINOPHIL % (test code = EO%) 2.3 % 0.0-5.0 N BASOPHIL % (test code = BA%) 0.8 % 0.0-1.0 N NUCLEATED RBC % (test code = NRBC%) 0.0 % 0-0 N NEUTROPHIL # (test code = NT#) 5.03 K/mm3 1.8-7.7 N IMMATURE GRANULOCYTE # (test code = IG#) 0.02 x10 3/uL 0-0.03 N LYMPHOCYTE # (test code = LY#) 1.68 K/mm3 1.0-5.0 N MONOCYTE # (test code = MO#) 0.86 K/mm3 0-0.8 H EOSINOPHIL # (test code = EO#) 0.18 K/mm3 0.0-0.5 N BASOPHIL # (test code = BA#) 0.06 K/mm3 0.0-0.2 N NUCLEATED RBC # (test code = NRBC#) 0.00 K/mm3 0.0-0.1 N [id number] 00:53:00* Test Item Value Reference Range Interpretation Comments GLUBED (test code = GLUBED) 78 mg/dL 74-106 N Performed by certified manual control auger press operator at [facility] - CONT INJ GS/ RISSA/ JJ/ [id number] 23:55:00 FAX: Lisa Singh [phone] [place]: [address] St: REG Name: VANESSA ANDREA [facility] : [birth year] Age/S: 44/M [address] [facility] Unit #: [id number] Loc: [place] [address] Phys: Lisa An Acct: [id number] Dis Date: Status: REG ER PHONE #: [phone] Exam Date: 12/11/20192343 FAX #: [phone] Reason: PEG replacement EXAMS: CPT CODE: [id number] CONT INJ GS/ DU/ JJ/ G G 63670 DICTATION LOCATION: [facility] HISTORY: Male, 44 years of age with PEG replacement EXAM: TWO VIEWS OF THE ABDOMEN COMPARISON: 11/24/2019 FIND INGS: 2 sequential frontal views of the abdomen are provided, 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 Injected contrast resides in the s tomach lumen indicating that the gastrostomy tube is in satisfactory posit ion. No extravasation of contrast into peritoneal cavity. IMPRESSION: Gastrostomy tube is in satisfactory position. Electro nically Signed by Toya Casey MD on 12/11/2019 at 9572 Reported and signed by: Toya Casey MD CC: Sherice An MD Technologist: Luna Edmondson Trnscrd Date/Time/By: 12/11/2019 (4252) : By: WillCLW Orig Print D/T: S: 12/11/2019 (8149) PAGE 1 Signed Report [id number] 23:24:00* Test Item Value Reference Range Interpretation Comments GLUBED (test code = GLUBED) 71 mg/dL 74-106 L Performed by certified manual control auger press operator at [facility] CHEST SINGLE (PORTABLE)2019-12-02 13:50:00 [address], [place] [address] Patient Name: VANESSA KHOURY MR #: [id number] : 1975 Age/Sex: 44/M Req #: [id number] Adm Physician: Ordered by: RAJAN JASON MD Report #: [id number] Location: ER Room/Bed: Procedure: DX/CHEST SINGLE ( PORTABLE) Exam Date: 12/02/19 Exam Time: 1308 REPORT STATUS: Signed EXAMINATION: CH EST SINGLE (PORTABLE) INDICATION: Sepsis COMPARISON: Chest radiogr aph 08/14/2019 FINDINGS: LINES/TUBES:EKG leads overlie the chest. LUNGS:The lungs are moderately inflated. Mild bibasilar patchy opacities. PLEURA:No pleural effusion or pneumothorax. MEDIASTINUM:The cardiomedias tinal silhouette appears normal in size and shape. BONES/SOFT TISSUES:No ac [place] osseous injury. ABDOMEN:No free air under the diaphragm. IMPRES CHARLI: Mild bibasilar patchy opacities may represent atelectasis however super imposed pneumonia should be excluded clinically. Signed by: Jam Lee on 12/02/2019 1:52 PM Dictated By: CHRIS ALLISON MD 135 Transcribed By: SARAH on 12/02/19 135 COPY TO: RAJAN JASON MD Fluoroscopic procedure less than one hour [id number] 13:00:00* Test Item Value Reference Range Interpretation Comments Lactic Acid Level (test code = Lactic Acid Level) 1.7 0.5- 2.0 [facility] HospitalFluoroscopic procedure less than one hour [id number] 13:00:00* Test Item Value Reference Range Interpretation Comments Lactic Acid Level (test code = Lactic Acid Level) 1.7 0.5- 2.0 [facility] HospitalBlood [id number] 13:00:00* Test Item Value Reference Range Interpretation Comments Blood Culture (test code = 83412944) NO GROWTH AFTER 5 DAYS, FINAL REPORT [facility] HospitalBacterial urine [id number] 12:42:00* Test Item Value Reference Range Interpretation Comments Urine Culture (test code = 630-4) ENTEROCOCCUS FAECALIS [facility] leukocytes automated count (number/volume)2019-12-02 12:40:00* Test Item Value Reference Range Interpretation Comments White Blood Count (test code = 6690-2) 5.19 4.8-10.8 [facility] erythrocytes automated count (number/volume)2019-12-02 12:40:00* Test Item Value Reference Range Interpretation Comments Red Blood Count (test code = 789-8) 4.39 4.3-5.7 [facility] HospitalBlood hemoglobin measurement (moles/volume)2019-12-02 12:40:00* Test Item Value Reference Range Interpretation Comments Hemoglobin (test code = 42649-3) 12.6 14.0-18.0 [facility] HospitalAut[facility]ed blood hematocrit (volume fraction)2019-12-02 12:40:00* Test Item Value Reference Range Interpretation Comments Hematocrit (test code = 4544-3) 43.1 38.2-49.6 [facility] HospitalAutomated erythrocyte mean corpuscular [id number] 12:40:00* Test Item Value Reference Range Interpretation Comments Mean Corpuscular Volume (test code = 787-2) 98.2 81-99 [facility] HospitalAutomated erythrocyte mean corpuscular hemoglobin (mass per erythrocyte)2019-12-02 12:40:00* Test Item Value Reference Range Interpretation Comments Mean Corpuscular Hemoglobin (test code = 785-6) 28.7 28-32 [facility] HospitalAutomated erythrocyte mean corpuscular hemoglobin concentration measurement (mass/volume)2019-12-02 12:40:00* Test Item Value Reference Range Interpretation Comments Mean Corpuscular Hemoglobin Concent (test code = 786-4) 29.2 31-35 [facility] HospitalRDW BesBk-[id number] 12:40:00* Test Item Value Reference Range Interpretation Comments Red Cell Distribution Width (test code = 00072-5) 13.4 11.7 -14.4 [facility] HospitalAutomated blood platelet count (count/volume)2019-12-02 12:40:00* Test Item Value Reference Range Interpretation Comments Platelet Count (test code = 777-3) 69 140-360 [facility] HospitalAutomated blood segmented neutrophil count as percentage of total zrlczxkhes8326-21-29 12:40:00* Test Item Value Reference Range Interpretation Comments Neutrophils (%) (Auto) (test code = 18288-8) 61.1 38.7-80.0 [facility] HospitalAutomated blood lymphocyte count as percentage ot total lfgotayrhz4715-77-48 12:40:00* Test Item Value Reference Range Interpretation Comments Lymphocytes (%) (Auto) (test code = 736-9) 28.7 18.0-39.1 [facility] HospitalAutomated blood monocyte count as percentage of total wprwmvwxvg9208-76-02 12:40:00* Test Item Value Reference Range Interpretation Comments Monocytes (%) (Auto) (test code = 5905-5) 9.4 4.4-11.3 [facility] HospitalAutomated blood eosinophil count as percentage of total wtxkfrbosy5841-02-71 12:40:00* Test Item Value Reference Range Interpretation Comments Eosinophils (%) (Auto) (test code = 713-8) 0.2 0.0-6.0 [facility] HospitalAutomated blood basophil count as percentage of total onyoitrkzm7555-49-00 12:40:00* Test Item Value Reference Range Interpretation Comments Basophils (%) (Auto) (test code = 706-2) 0.2 0.0-1.0 [facility] HospitalFluoroscopic procedure less than one hour [id number] 12:40:00* Test Item Value Reference Range Interpretation Comments IM GRANULOCYTES % (test code = IM GRANULOCYTES %) 0.4 0.0- 1.0 [facility] HospitalAutomated blood neutrophil count 2019-12-02 12:40:00* Test Item Value Reference Range Interpretation Comments Neutrophils # (Auto) (test code = 751-8) 3.2 2.1-6.9 [facility] HospitalBlood lymphocytes count (number/volume) 2019-12-02 12:40:00* Test Item Value Reference Range Interpretation Comments Lymphocytes # (Auto) (test code = 89884-5) 1.5 1.0-3.2 [facility] HospitalB[facility] monocytes automated count (number/volume)2019-12-02 12:40:00* Test Item Value Reference Range Interpretation Comments Monocytes # (Auto) (test code = 742-7) 0.5 0.2-0.8 [facility] HospitalAutomated blood eosinophil count 2019-12-02 12:40:00* Test Item Value Reference Range Interpretation Comments Eosinophils # (Auto) (test code = 711-2) 0.0 0.0-0.4 [facility] HospitalAutomated blood basophil count (count/volume)2019-12-02 12:40:00* Test Item Value Reference Range Interpretation Comments Basophils # (Auto) (test code = 704-7) 0.0 0.0-0.1 [facility] HospitalFluoroscopic procedure less than one hour [id number] 12:40:00* Test Item Value Reference Range Interpretation Comments Absolute Immature Granulocyte (auto (mabel t code = Absolute Immature Granulocyte (auto) 0.02 0-0.1 [facility] HospitalProthrombin time (PT) in platelet poor plasma by coagulation [id number] 12:40:00* Test Item Value Reference Range Interpretation Comments Prothrombin Time (test code = 5902-2) 13.9 11.9-14.5 [facility] HospitalINR in Platelet poor plasma by Coagulation cnqiq7759-52-43 12:40:00* Test Item Value Reference Range Interpretation Comments Prothromb Time International Ratio (test code = 6301-6) 1.02 Oral Anticoagulant Therapy INR Values:1. Low Intensity Therapy 1.5 - 2.02 . Moderate Intensity Therapy 2.0 - 3.03. High Intensity Therapy(1) 2.5 - 3. 54. High Intensity Therapy(2) 3.0 - 4.05. Panic Value INR > 5.0 [facility] HospitalActivated partial thromboplastin time (aPTT) in platelet poor plasma by coagulation [id number] 12:40:00* Test Item Value Reference Range Interpretation Comments Activated Partial Thromboplast Time (test code = 53016-0) 33.3 23.8-35.5 [facility] HospitalUrine color tvbjvsemqmlvt7887-76-97 12:40:00* Test Item Value Reference Range Interpretation Comments Urine Color (test code = 5778-6) STRAW YELLOW [facility] HospitalUrine [id number] 12:40:00* Test Item Value Reference Range Interpretation Comments Urine Clarity (test code = 14571-3) SL CLOUDY CLEAR [facility] Urine by Test strip 2019-12-02 12:40:00* Test Item Value Reference Range Interpretation Comments Urine Specific [place] (test code = 5811-5) 1.020 1.010-1.02 5 [facility] HospitalUrine pH measurement by automated test [id number] 12:40:00* Test Item Value Reference Range Interpretation Comments Urine pH (test code = 32232-5) 5.5 5-7 [facility] HospitalUrine leukocyte esterase detection by qlhvhjbs9166-34-06 12:40:00* Test Item Value Reference Range Interpretation Comments Urine Leukocyte Esterase (test code = 5799-2) NEGATIVE NEGATIVE [facility] HospitalUrine nitrite bptuwomcq8090-08-31 12:40:00* Test Item Value Reference Range Interpretation Comments Urine Nitrite (test code = 44089-3) NEGATIVE NEGATIVE [facility] HospitalUrine protein measurement by test strip (mass/volume)2019-12-02 12:40:00* Test Item Value Reference Range Interpretation Comments Urine Protein (test code = 5804-0) 2+ NEGATIVE [facility] HospitalUrine glucose fhdrasfax5928-23-64 12:40:00* Test Item Value Reference Range Interpretation Comments Urine Glucose (UA) (test code = 2349-9) NEGATIVE NEGATIVE [facility] HospitalUrine ketones detection by automated test qbpjg1260-14-86 12:40:00* Test Item Value Reference Range Interpretation Comments Urine Ketones (test code = 70610-8) NEGATIVE NEGATIVE [facility] HospitalUrine urobilinogen measurement by test strip (mass/volume)2019-12-02 12:40:00* Test Item Value Reference Range Interpretation Comments Urine Urobilinogen (test code = 28502-9) 1 0.2-1 [facility] HospitalUrine total bilirubin measurement (mass/volume)2019-12-02 12:40:00* Test Item Value Reference Range Interpretation Comments Urine Bilirubin (test code = 1978-6) NEGATIVE NEGATIVE [facility] HospitalUrine erythrocytes ytibupcsq9394-14-45 12:40:00* Test Item Value Reference Range Interpretation Comments Urine Blood (test code = 21493-3) MODERATE NEGATIVE [facility] HospitalAutomated urine sediment leukocyte count by microscopy (number/high power field)2019-12-02 12:40:00* Test Item Value Reference Range Interpretation Comments Urine WBC (test code = 5821-4) NONE 0-5 [facility] HospitalErythrocytes detection in urine sediment by light xqxkbnsyti7672-54-78 12:40:00* Test Item Value Reference Range Interpretation Comments Urine RBC (test code = 63601-9) 6-10 0-5 [facility] HospitalBacteria detection in urine sediment by light krpcdhjnxi5388-91-08 12:40:00* Test Item Value Reference Range Interpretation Comments Urine Bacteria (test code = 51488-2) MODERATE NONE [facility] HospitalEpithelial cells detection in urine sediment by light edxczvrxyv0771-85-56 12:40:00* Test Item Value Reference Range Interpretation Comments Urine Epithelial Cells (test code = 52989-3) FEW NONE [facility] Centererum or plasma sodium measurement (moles/volume)2019-12-02 12:40:00* Test Item Value Reference Range Interpretation Comments Sodium Level (test code = 2951-2) 160 136-145 [facility]ererum or plasma potassium measurement (moles/volume)2019-12-02 12:40:00* Test Item Value Reference Range Interpretation Comments Potassium Level (test code = 2823-3) 4.6 3.5-5.1 [facility]ere[facility] or plasma chloride measurement (moles/volume)2019-12-02 12:40:00* Test Item Value Reference Range Interpretation Comments Chloride Level (test code = 2075-0) 121 98-107 [facility]ererum or plasma carbon dioxide, total measurement (moles/volume)2019-12-02 12:40:00* Test Item Value Reference Range Interpretation Comments Carbon Dioxide Level (test code = 2028-9) 29 22-29 [facility]ererum or plasma anion hjt8514-00-15 12:40:00* Test Item Value Reference Range Interpretation Comments Anion Gap (test code = 24517-4) 14.6 8-16 [facility] or plasma urea nitrogen measurement (mass/volume)2019-12-02 12:40:00* Test Item Value Reference Range Interpretation Comments Blood Urea Nitrogen (test code = 3094-0) 34 7-26 [facility]ererum or plasma creatinine measurement (mass/volume)2019-12-02 12:40:00* Test Item Value Reference Range Interpretation Comments Creatinine (test code = 2160-0) 0.70 0.72-1.25 [facility] Centererum or plasma urea nitrogen/creatinine mass [id number] 12:40:00* Test Item Value Reference Range Interpretation Comments BUN/Creatinine Ratio (test code = 3097-3) 49 6-25 [facility] HospitalEstimated glomerular filtration rate (GFR) kiagdfifjwvpb7408-16-59 12:40:00* Test Item Value Reference Range Interpretation Comments Estimat Glomerular Filtration Rate (test code = 953096613) > 60 >60 Ranges were taken from the National Kidney Disease Education Program and the [facility] literature.Reference ranges:60 or greater: Qszzwz19-32 ( for 3 consecutive months): Chronic kidney disease 15 or less: Kidney failureAudie L. Murphy Memorial VA HospitalGlucose iquvubmgvha4048-15-78 12:40:00* Test Item Value Reference Range Interpretation Comments Glucose Level (test code = PLW2774) 104 74-118 [facility]ere[facility] or plasma calcium measurement (mass/volume)2019-12-02 12:40:00* Test Item Value Reference Range Interpretation Comments Calcium Level (test code = 86378-8) 8.6 8.4-10.2 [facility]ererum or plasma total bilirubin measurement (mass/volume)2019-12-02 12:40:00* Test Item Value Reference Range Interpretation Comments Total Bilirubin (test code = 1975-2) 0.4 0.2-1.2 [facility] HospitalFluoroscopic procedure less than one hour qskibcxm7482-26-32 12:40:00* Test Item Value Reference Range Interpretation Comments Aspartate Amino Transf (AST/SGOT) (test code = Aspartate Amino Transf (AST/SGOT)) 61 5-34 [facility] Centererum or plasma alanine aminotransferase measurement (enzymatic activity/volume)2019-12-02 12:40:00* Test Item Value Reference Range Interpretation Comments Alanine Aminotransferase (ALT/SGPT) (test code = 1742-6) 67 0-55 [facility]ererum or plasma protein measurement (mass/volume)2019-12-02 12:40:00* Test Item Value Reference Range Interpretation Comments Total Protein (test code = 2885-2) 7.9 6.5-8.1 [facility]ererum or plasma albumin measurement (mass/volume)2019-12-02 12:40:00* Test Item Value Reference Range Interpretation Comments Albumin (test code = 1751-7) 2.9 3.5-5.0 [facility] HospitalPlasma globulin measurement (mass/volume) 2019-12-02 12:40:00* Test Item Value Reference Range Interpretation Comments Globulin (test code = 34023-2) 5.0 2.3-3.5 [facility]ererum or plasma albumin/globulin mass dvdst9684-26-06 12:40:00* Test Item Value Reference Range Interpretation Comments Albumin/Globulin Ratio (test code = 1759-0) 0.6 0.8-2.0 [facility]ererum or plasma alkaline phosphatase measurement (enzymatic activity/volume)2019-12-02 12:40:00* Test Item Value Reference Range Interpretation Comments Alkaline Phosphatase (test code = 6768-6) 117 40-150 [facility]ererum or plasma creatine kinase measurement (enzymatic activity/volume)2019-12-02 12:40:00* Test Item Value Reference Range Interpretation Comments Creatine Kinase (test code = 2157-6) 47 30-200 [facility]ererum or plasma creatine kinase MB measurement (mass/volume)2019-12-02 12:40:00* Test Item Value Reference Range Interpretation Comments Creatine Kinase MB (test code = 08188-2) 0.60 0-5.0 [facility] HospitalTroponin I measurement by highly sensitive enzyme xxidbmxgazw3976-02-65 12:40:00* Test Item Value Reference Range Interpretation Comments Troponin I (test code = 41260-1) 0.002 0-0.300 [facility] HospitalBlood leukocytes automated count (number/volume)2019-12-02 12:40:00* Test Item Value Reference Range Interpretation Comments White Blood Count (test code = 6690-2) 5.19 4.8-10.8 [facility] HospitalBlood erythrocytes automated count (number/volume)2019-12-02 12:40:00* Test Item Value Reference Range Interpretation Comments Red Blood Count (test code = 789-8) 4.39 4.3-5.7 [facility] HospitalBlood hemoglobin measurement (moles/volume)2019-12-02 12:40:00* Test Item Value Reference Range Interpretation Comments Hemoglobin (test code = 33734-1) 12.6 14.0-18.0 [facility] HospitalAutomated blood hematocrit (volume fraction)2019-12-02 12:40:00* Test Item Value Reference Range Interpretation Comments Hematocrit (test code = 4544-3) 43.1 38.2-49.6 [facility] HospitalAutomated erythrocyte mean corpuscular fdaqtp4922-74-52 12:40:00* Test Item Value Reference Range Interpretation Comments Mean Corpuscular Volume (test code = 787-2) 98.2 81-99 [facility] HospitalAutomated erythrocyte mean corpuscular hemoglobin (mass per erythrocyte)2019-12-02 12:40:00* Test Item Value Reference Range Interpretation Comments Mean Corpuscular Hemoglobin (test code = 785-6) 28.7 28-32 [facility] HospitalAutomated erythrocyte mean corpuscular hemoglobin concentration measurement (mass/volume)2019-12-02 12:40:00* Test Item Value Reference Range Interpretation Comments Mean Corpuscular Hemoglobin Concent (test code = 786-4) 29.2 31-35 [facility] HospitalRDW QhlBu-Ack1069-19-24 12:40:00* Test Item Value Reference Range Interpretation Comments Red Cell Distribution Width (test code = 73038-2) 13.4 11.7 -14.4 [facility] HospitalAutomated blood platelet count (count/volume)2019-12-02 12:40:00* Test Item Value Reference Range Interpretation Comments Platelet Count (test code = 777-3) 69 140-360 [facility] HospitalAutomated blood segmented neutrophil count as percentage of total izqjfdafci5747-22-72 12:40:00* Test Item Value Reference Range Interpretation Comments Neutrophils (%) (Auto) (test code = 78862-9) 61.1 38.7-80.0 [facility] HospitalAutomated blood lymphocyte count as percentage ot total hefjginzof0933-05-30 12:40:00* Test Item Value Reference Range Interpretation Comments Lymphocytes (%) (Auto) (test code = 736-9) 28.7 18.0-39.1 [facility] HospitalAutomated blood monocyte count as percentage of total kfvwbmiwwc0491-71-05 12:40:00* Test Item Value Reference Range Interpretation Comments Monocytes (%) (Auto) (test code = 5905-5) 9.4 4.4-11.3 [facility] HospitalAutomated blood eosinophil count as percentage of total qtqddtzdmu7144-63-08 12:40:00* Test Item Value Reference Range Interpretation Comments Eosinophils (%) (Auto) (test code = 713-8) 0.2 0.0-6.0 [facility] HospitalAutomated blood basophil count as percentage of total izwtgelbvd8450-84-51 12:40:00* Test Item Value Reference Range Interpretation Comments Basophils (%) (Auto) (test code = 706-2) 0.2 0.0-1.0 [facility] HospitalFluoroscopic procedure less than one hour ulrydtku8220-44-70 12:40:00* Test Item Value Reference Range Interpretation Comments IM GRANULOCYTES % (test code = IM GRANULOCYTES %) 0.4 0.0- 1.0 [facility] HospitalAutomated blood neutrophil count 2019-12-02 12:40:00* Test Item Value Reference Range Interpretation Comments Neutrophils # (Auto) (test code = 751-8) 3.2 2.1-6.9 [facility] HospitalBllake [facility] lymphocytes count (number/volume) 2019-12-02 12:40:00* Test Item Value Reference Range Interpretation Comments Lymphocytes # (Auto) (test code = 25961-7) 1.5 1.0-3.2 [facility] HospitalBllake view memorial hospital monocytes automated count (number/volume)2019-12-02 12:40:00* Test Item Value Reference Range Interpretation Comments Monocytes # (Auto) (test code = 742-7) 0.5 0.2-0.8 [facility] HospitalAutomated blood eosinophil count 2019-12-02 12:40:00* Test Item Value Reference Range Interpretation Comments Eosinophils # (Auto) (test code = 711-2) 0.0 0.0-0.4 [facility] HospitalAutomated blood basophil count (count/volume)2019-12-02 12:40:00* Test Item Value Reference Range Interpretation Comments Basophils # (Auto) (test code = 704-7) 0.0 0.0-0.1 [facility] HospitalFluoroscopic procedure less than one hour waylzimp6086-63-13 12:40:00* Test Item Value Reference Range Interpretation Comments Absolute Immature Granulocyte (auto (mabel t code = Absolute Immature Granulocyte (auto) 0.02 0-0.1 [facility] HospitalProthrombin time (PT) in platelet poor plasma by coagulation uwscu5858-48-22 12:40:00* Test Item Value Reference Range Interpretation Comments Prothrombin Time (test code = 5902-2) 13.9 11.9-14.5 [facility] HospitalINR in Platelet poor plasma by Coagulation chdkn0117-80-46 12:40:00* Test Item Value Reference Range Interpretation Comments Prothromb Time International Ratio (test code = 6301-6) 1.02 Oral Anticoagulant Therapy INR Values:1. Low Intensity Therapy 1.5 - 2.02 . Moderate Intensity Therapy 2.0 - 3.03. High Intensity Therapy(1) 2.5 - 3. 54. High Intensity Therapy(2) 3.0 - 4.05. Panic Value INR > 5.0 [facility] HospitalActivated partial thromboplastin time (aPTT) in platelet poor plasma by coagulation rtiim8914-56-73 12:40:00* Test Item Value Reference Range Interpretation Comments Activated Partial Thromboplast Time (test code = 31593-7) 33.3 23.8-35.5 [facility] HospitalUrine color fjutrklgvpbtf9711-10-41 12:40:00* Test Item Value Reference Range Interpretation Comments Urine Color (test code = 5778-6) STRAW YELLOW [facility] HospitalUrine swyjhpe2819-14-89 12:40:00* Test Item Value Reference Range Interpretation Comments Urine Clarity (test code = 44634-0) SL CLOUDY CLEAR [facility] Centerpecific gravity of Urine by Test strip 2019-12-02 12:40:00* Test Item Value Reference Range Interpretation Comments Urine Specific [place] (test code = 5811-5) 1.020 1.010-1.02 5 [facility] HospitalUrine pH measurement by automated test wsmxo3615-53-90 12:40:00* Test Item Value Reference Range Interpretation Comments Urine pH (test code = 11748-9) 5.5 5-7 [facility] HospitalUrine leukocyte esterase detection by ctpvutrv5853-04-03 12:40:00* Test Item Value Reference Range Interpretation Comments Urine Leukocyte Esterase (test code = 5799-2) NEGATIVE NEGATIVE [facility] HospitalUrine nitrite ehwkozwrf4632-53-34 12:40:00* Test Item Value Reference Range Interpretation Comments Urine Nitrite (test code = 78927-8) NEGATIVE NEGATIVE [facility] HospitalUrine protein measurement by test strip (mass/volume)2019-12-02 12:40:00* Test Item Value Reference Range Interpretation Comments Urine Protein (test code = 5804-0) 2+ NEGATIVE [facility] HospitalUrine glucose uypyqfmyl1318-45-38 12:40:00* Test Item Value Reference Range Interpretation Comments Urine Glucose (UA) (test code = 2349-9) NEGATIVE NEGATIVE [facility] HospitalUrine ketones detection by automated test lkssa8975-19-27 12:40:00* Test Item Value Reference Range Interpretation Comments Urine Ketones (test code = 80946-1) NEGATIVE NEGATIVE [facility] HospitalUrine urobilinogen measurement by test strip (mass/volume)2019-12-02 12:40:00* Test Item Value Reference Range Interpretation Comments Urine Urobilinogen (test code = 81584-0) 1 0.2-1 [facility] HospitalUrine total bilirubin measurement (mass/volume)2019-12-02 12:40:00* Test Item Value Reference Range Interpretation Comments Urine Bilirubin (test code = 1978-6) NEGATIVE NEGATIVE [facility] HospitalUrine erythrocytes kywbuzbpf9401-33-73 12:40:00* Test Item Value Reference Range Interpretation Comments Urine Blood (test code = 70533-6) MODERATE NEGATIVE [facility] HospitalAutomated urine sediment leukocyte count by microscopy (number/high power field)2019-12-02 12:40:00* Test Item Value Reference Range Interpretation Comments Urine WBC (test code = 5821-4) NONE 0-5 [facility] HospitalErythrocytes detection in urine sediment by light davfetihre1867-29-71 12:40:00* Test Item Value Reference Range Interpretation Comments Urine RBC (test code = 06823-0) 6-10 0-5 [facility] HospitalBacteria detection in urine sediment by light alwzfnlofl7344-13-57 12:40:00* Test Item Value Reference Range Interpretation Comments Urine Bacteria (test code = 65003-8) MODERATE NONE [facility] HospitalEpithelial cells detection in urine sediment by light islrhoshmv9331-66-57 12:40:00* Test Item Value Reference Range Interpretation Comments Urine Epithelial Cells (test code = 64301-8) FEW NONE [facility]ererum or plasma sodium measurement (moles/volume)2019-12-02 12:40:00* Test Item Value Reference Range Interpretation Comments Sodium Level (test code = 2951-2) 160 136-145 [facility]ererum or plasma potassium measurement (moles/volume)2019-12-02 12:40:00* Test Item Value Reference Range Interpretation Comments Potassium Level (test code = 2823-3) 4.6 3.5-5.1 [facility]ererum or plasma chloride measurement (moles/volume)2019-12-02 12:40:00* Test Item Value Reference Range Interpretation Comments Chloride Level (test code = 2075-0) 121 98-107 [facility]ererum or plasma carbon dioxide, total measurement (moles/volume)2019-12-02 12:40:00* Test Item Value Reference Range Interpretation Comments Carbon Dioxide Level (test code = 2028-9) 29 22-29 [facility]ererum or plasma anion adl7334-70-46 12:40:00* Test Item Value Reference Range Interpretation Comments Anion Gap (test code = 44763-9) 14.6 8-16 [facility]ererum or plasma urea nitrogen measurement (mass/volume)2019-12-02 12:40:00* Test Item Value Reference Range Interpretation Comments Blood Urea Nitrogen (test code = 3094-0) 34 7-26 [facility]ererum or plasma creatinine measurement (mass/volume)2019-12-02 12:40:00* Test Item Value Reference Range Interpretation Comments Creatinine (test code = 2160-0) 0.70 0.72-1.25 [facility]ererum or plasma urea nitrogen/creatinine mass gwfxf4249-58-76 12:40:00* Test Item Value Reference Range Interpretation Comments BUN/Creatinine Ratio (test code = 3097-3) 49 6-25 [facility] HospitalEstimated glomerular filtration rate (GFR) sqmxoyqmcbbzg9640-09-42 12:40:00* Test Item Value Reference Range Interpretation Comments Estimat Glomerular Filtration Rate (test code = 788888938) > 60 >60 Ranges were taken from the National Kidney Disease Education Program and the [facility] literature.Reference ranges:60 or greater: Vmfilm89-41 ( for 3 consecutive months): Chronic kidney disease 15 or less: Kidney failureAudie L. Murphy Memorial VA HospitalGlucose dljznmnvlss3854-33-40 12:40:00* Test Item Value Reference Range Interpretation Comments Glucose Level (test code = OGG3975) 104 74-118 [facility]ererum or plasma calcium measurement (mass/volume)2019-12-02 12:40:00* Test Item Value Reference Range Interpretation Comments Calcium Level (test code = 69635-7) 8.6 8.4-10.2 [facility]ererum or plasma total bilirubin measurement (mass/volume)2019-12-02 12:40:00* Test Item Value Reference Range Interpretation Comments Total Bilirubin (test code = 1975-2) 0.4 0.2-1.2 [facility] HospitalFluoroscopic procedure less than one hour kqdrdaqo6386-62-68 12:40:00* Test Item Value Reference Range Interpretation Comments Aspartate Amino Transf (AST/SGOT) (test code = Aspartate Amino Transf (AST/SGOT)) 61 5-34 [facility]ererum or plasma alanine aminotransferase measurement (enzymatic activity/volume)2019-12-02 12:40:00* Test Item Value Reference Range Interpretation Comments Alanine Aminotransferase (ALT/SGPT) (test code = 1742-6) 67 0-55 [facility]ererum or plasma protein measurement (mass/volume)2019-12-02 12:40:00* Test Item Value Reference Range Interpretation Comments Total Protein (test code = 2885-2) 7.9 6.5-8.1 [facility]ererum or plasma albumin measurement (mass/volume)2019-12-02 12:40:00* Test Item Value Reference Range Interpretation Comments Albumin (test code = 1751-7) 2.9 3.5-5.0 [facility] HospitalPlasma globulin measurement (mass/volume) 2019-12-02 12:40:00* Test Item Value Reference Range Interpretation Comments Globulin (test code = 69973-8) 5.0 2.3-3.5 [facility]ererum or plasma albumin/globulin mass fbvnn9129-07-82 12:40:00* Test Item Value Reference Range Interpretation Comments Albumin/Globulin Ratio (test code = 1759-0) 0.6 0.8-2.0 [facility]ererum or plasma alkaline phosphatase measurement (enzymatic activity/volume)2019-12-02 12:40:00* Test Item Value Reference Range Interpretation Comments Alkaline Phosphatase (test code = 6768-6) 117 40-150 [facility]ererum or plasma creatine kinase measurement (enzymatic activity/volume)2019-12-02 12:40:00* Test Item Value Reference Range Interpretation Comments Creatine Kinase (test code = 2157-6) 47 30-200 [facility]ererum or plasma creatine kinase MB measurement (mass/volume)2019-12-02 12:40:00* Test Item Value Reference Range Interpretation Comments Creatine Kinase MB (test code = 31084-7) 0.60 0-5.0 [facility] HospitalTroponin I measurement by highly sensitive enzyme ztirjdqxsxn4415-72-71 12:40:00* Test Item Value Reference Range Interpretation Comments Troponin I (test code = 78125-7) 0.002 0-0.300 [facility]- XR ABDOMEN AP 1 [id number] 02:35:00 FAX: Cr Regan MD [phone] [place]: [address]: REG Name: VANESSA ANDREA [facility] : [birth year] Age/S: 44/M [address] [facility] Unit #: [id number] Loc: [place] [address] Phys: Cr Regan MD Acct: [id number] Dis Date: Status: REG ER PHONE #: [phone] Exam Date: 11/24/2019 0150 FAX #: [phone] Reason: g tube replacement EXAMS: CPT CODE: [id number] XR ABDOMEN AP 1 V 22887 Abdomen one view with contrast inj ection [...] Edmondson Trnscrd Date/Time/By: 11/24/2019 (0235) : By: [email or web address] Orig P rint D/T: S: 11/24/2019 (0238) PAGE 1 Signed Report BASIC METABOLIC [id number] 06:58:00* Test Item Value Reference Range Interpretation [...] CA) 9.1 mg/dL 8.5-10.1 N BASIC METABOLIC OJZZY1757-10-16 06:53:00* Test Item Value Reference Range Interpretation [...] code = CA) mg/dL 8.5-10.1 BASIC METABOLIC PZAKX8095-25-75 08:41:00* Test Item Value Reference Range Interpretation [...] mg/dL 8.5-10.1 N REFUSED LABS NOTIFIED NURSE [id number].YOLANDA.DB2 10/30/2000941647FYXPQ METABOLIC PANEL 2019-10-31 08:23:00* Test Item Value [...] CA) mg/dL 8.5-10.1 REFUSED LABS NOTIFIED NURSE [id number].YOLANDA.DB2 10/30/2000887302Y-WLAH NATRIURETIC PAEKPEN3246-65-69 08:20:00* Test Item Value Reference Range Interpretation Comments B-TYPE NATRIURETIC PEPTIDE (test code = BNP) 33.00 pgram/mL 0-100 N PROTHROMBIN [id number] 08:15:00* Test Item Value Reference Range Interpretation [...] valves (2.5-3.5) PT REFUSED LABS NOTIFIED NURSE [id number] IS PATIENT ON ANTICO AGULANTS? NCOMMENTS TO VP ANCILLARY: NEED FOR SURGERY 10/31/19ROMBOPLASTIN TIME [id number] 08:15:00* Test Item Value Reference Range Interpretation Comments THROMBOPLASTIN TIME PARTIAL (test code = PTT) 34.4 seconds 23.0-37. 0 N PT REFUSED LABS NOTIFIED NURSE [id number] IS PATIENT ON ANTICO AGULANTS? NCOMMENTS TO VP ANCILLARY: NEED FOR SURGERY 10/31/19CBC W/AUTO DIFF 2019-10-31 [...] 0.0-0.1 N PT REFUSED LABS NOTIFIED NURSE [id number].YOLANDA.DB2 10/30/200054CBC W/AUTO DIFF 2019-10-30 07:36:00* Test Item [...] = MDIFF) NO, ONLY SCAN NEEDED DIFFERENTIAL [id number] 07:36:00* Test Item Value Reference Range Interpretation Comments STAIN ACCEPTABILITY (test code = STN ACCEPTABLE) STAIN ACCEPTABLE PLATELET ESTIMATE (test code = PLTEST) DECREASED PLATELET MORPHOLOGY (test code = PLTMORPH) SIZE VARIABLE COMPREHENSIVE METABOLIC [id number] 07:31:00* Test Item Value Reference Range Interpretation [...] due to change in reagent. COMPREHENSIVE METABOLIC [id number] 07:03:00* Test Item Value Reference Range Interpretation [...] code = ALKP) IUnit/L 45-117 CBC W/AUTO [id number] 06:47:00* Test Item Value Reference Range Interpretation [...] = MDIFF) NO, ONLY SCAN NEEDED DIFFERENTIAL [id number] 06:47:00* Test Item Value Reference Range Interpretation Comments STAIN ACCEPTABILITY (test code = STN ACCEPTABLE) CABOT RINGS (test code = CAB) MORPHOLOGY COMMENT (test code = MOC) PLATELET ESTIMATE (test code = PLTEST) PLATELET MORPHOLOGY (test code = PLTMORPH) CBC W/AUTO [id number] 06:47:00* Test Item Value Reference Range Interpretation [...] = MDIFF) NO, ONLY SCAN NEEDED DIFFERENTIAL [id number] 06:47:00* Test Item Value Reference Range Interpretation Comments STAIN ACCEPTABILITY (test code = STN ACCEPTABLE) MORPHOLOGY COMMENT (test code = MOC) PLATELET ESTIMATE (test code = PLTEST) PLATELET MORPHOLOGY (test code = PLTMORPH) CBC W/AUTO [id number] 06:46:00* Test Item Value Reference Range Interpretation [...] = MDIFF) NO, ONLY SCAN NEEDED DIFFERENTIAL [id number] 06:46:00* Test Item Value Reference Range Interpretation Comments STAIN ACCEPTABILITY (test code = STN ACCEPTABLE) CABOT RINGS (test code = CAB) MORPHOLOGY COMMENT (test code = MOC) PLATELET ESTIMATE (test code = PLTEST) PLATELET MORPHOLOGY (test code = PLTMORPH) CBC W/AUTO [id number] 06:46:00* Test Item Value Reference Range Interpretation [...] = MDIFF) NO, ONLY SCAN NEEDED DIFFERENTIAL [id number] 06:46:00* Test Item Value Reference Range Interpretation Comments STAIN ACCEPTABILITY (test code = STN ACCEPTABLE) CABOT RINGS (test code = CAB) MORPHOLOGY COMMENT (test code = MOC) PLATELET ESTIMATE (test code = PLTEST) PLATELET MORPHOLOGY (test code = PLTMORPH) BASIC METABOLIC [id number] 06:02:00* Test Item Value Reference Range Interpretation [...] CA) 9.2 mg/dL 8.5-10.1 N BASIC METABOLIC [id number] 05:56:00* Test Item Value Reference Range Interpretation [...] code = CA) mg/dL 8.5-10.1 Coronavirus 2019 [facility] Lpxfdei7213-69-00 10:36:00* Test Item Value Reference Range Interpretation Comments Coronavirus 2019 [facility] Bedside (test code = COVNONPUIBED) Negative PROTHROMBIN [id number] 10:29:00* Test Item Value Reference Range Interpretation [...] (2.5-3.5) IS PATIENT ON ANTICOAGULANTS? NTHROMBOPLASTIN TIME [id number] 10:29:00* Test Item Value Reference Range Interpretation Comments THROMBOPLASTIN TIME PARTIAL (test code = PTT) 33.6 seconds 23.0-37. 0 N IS PATIENT ON ANTICOAGULANTS? NCOMPREHENSIVE METABOLIC [id number] 10:17:00 * Test Item Value Reference Range [...] due to change in reagent. CBC W/AUTO [id number] 09:43:00* Test Item Value Reference Range Interpretation [...] DIFF REQUIRED (test code = MDIFF) NO [id number] 20:41:00* Test Item Value Reference Range Interpretation Comments GLUBED (test code = GLUBED) 106 mg/dL 74-106 N Performed by certified manual control auger press operator at [facility] ABDOMEN-1VIEW (KUB)2019-10-13 10:47:00 [place] [address] Patient Name: VANESSA KHOURY MR #: [id number] : 1975 Age/Sex: 44/M Req #: [id number] Adm Physician: Ordered by: GISELA LAYNE DO Report #: [id number] Location: ER Room/Bed: Procedure: [id number] DX/ABDOMEN-1V IEW (KUB) Exam Date: 10/13/19 Exam Time: 919 REPORT STATUS: Signed EXAM: ABDOMEN-1 VIEW (KUB) DATE: 10/13/2019 9:46 AM INDICATION: Gastrostomy replacemen t COMPARISON: None FINDINGS: Single AP view of the abdomen was obt ained after the administration of Gastrografin via the indwelling gastrostomy catheter. A pre school teacher image was not obtained. There is contrast opacification of the gastric folds and proximal small bowel. No extraluminal contrast mater ial is identified. Bowel gas pattern appears nonobstructive. No abnormal intra -abdominal calcification is appreciated. No acute osseous abnormality identifi ed. IMPRESSION: Intraluminal position of gastrostomy catheter with opacification of the stomach and proximal small bowel. Signed by: Dr. Sabrina Houser MD on 10/13/2019 10:49 AM Dictated By: JUNIOR HOUSER MD Electron ically Signed By: JUNIOR HOUSER MD on 10/13/19 1049 Transcribed By: SARAH on 0 10/13/19 1049 COPY TO: GISELA LAYNE DO - CONT INJ GS/ RISSA/ JJ/ [id number] 09:47:00 FAX: Marcelina Younger DO [place]: [address]: REG Name: VANESSA ANDREA [facility] : [birth year] Age/S: 44/M [address] [facility] Unit #: [id number] Loc: [place] [address] Phys: Marcelina Younger DO Acct: [id number] Dis Date: Status: REG ER PHONE #: [phone] Exam Date: 10/09/2019914 FAX #: [phone] Reason: peg tube replacement EXAMS: CPT CODE: [id number] CONT INJ GS/ DU/ JJ/ G G 84187 HISTORY: PEG tube placement. COMPARISON: CT scan from September 10, 2019. Location: [facility]. Cafe Team Member view of the abdomen demonstrating gastrostomy tube in the left upper quadrant. Post contrast administration via gastrostomy t ube demonstrated opacification of the gastric fundus. The balloon appears to be at the gastric body level. IMPRESSION: Gastrostomy tube tip within the gastric body level with opacification of the gastric fundus after contrast administration. Electronica lly Signed by Kiaan Givens on 10/09/2019 at 0947 Re ported and signed by: Luke Givens M.D. CC: Topher Younger DO Technologist: ZENA GRAMAJO RT(R) Trnscrd Date/Time/By: 10/09/2019 (0947) : By: yamile [email or web address] Orig Print D/T: S: 10/09/2019 (0951) P AGE 1 Signed Report BASIC METABOLIC [id number] 05:25:00* Test Item Value Reference Range Interpretation [...] CA) 9.0 mg/dL 8.5-10.1 N BASIC METABOLIC [id number] 05:17:00* Test Item Value Reference Range Interpretation [...] code = CA) mg/dL 8.5-10.1 BASIC METABOLIC [id number] 14:23:00* Test Item Value Reference Range Interpretation [...] CA) 8.8 mg/dL 8.5-10.1 N CBC W/AUTO [id number] 14:20:00* Test Item Value Reference Range Interpretation [...] NRBC#) 0.00 K/mm3 0.0-0.1 N BASIC METABOLIC [id number] 14:20:00* Test Item Value Reference Range Interpretation [...] code = CA) 8.8 mg/dL 8.5-10.1 N [id number] 18:04:00* Test Item Value Reference Range Interpretation Comments GLUBED (test code = GLUBED) 95 mg/dL 74-106 N Performed by certified manual control auger press operator at [facility] [id number] 07:58:00* Test Item Value Reference Range Interpretation Comments GLUBED (test code = GLUBED) 99 mg/dL 74-106 N Performed by certified manual control auger press operator at [facility] [id number] 21:01:00* Test Item Value Reference Range Interpretation Comments GLUBED (test code = GLUBED) 105 mg/dL 74-106 N Performed by certified manual control auger press operator [facility]~ Coronavirus 2019 nCoV Utgosos8343-40-48 11:47:00* Test Item Value Reference Range Interpretation Comments Coronavirus 2019 nCoV Bedside (test code = COVNONPUIBED) Negative Emergent procedure? YESBASIC METABOLIC [id number] 07:11:00* Test Item Value Reference Range Interpretation [...] CA) 9.5 mg/dL 8.5-10.1 N BASIC METABOLIC [id number] 06:51:00* Test Item Value Reference Range Interpretation [...] code = CA) mg/dL 8.5-10.1 CBC W/AUTO [id number] 06:33:00* Test Item Value Reference Range Interpretation [...] = MDIFF) NO - CT ABD PELVIS W/[id number] 17:10:00 Name: VANESSA KHOURY [facility] : 1975 Age/S: 44 / M [address] [facility] Unit #: [id number] Loc: [place] [address] Phys: Virgil Montero MD Acct: [id number] Dis Date: Status: REG ER PHONE #: [phone] Exam Date: 09/10/2019 1655 FAX #: [phone] Reason: Vomiting after PEG tube replacement EXAMS: CPT CODE: [id number] CT ABD PELVIS W/CONT 59550 HISTORY: Vomiting after PEG tube replacement. COMPARISON: [...] Signed Report (CON TINUED) Name: VANESSA KHOURY [facility] : 1975 Age/S: 44 / M [address] [facility] Unit #: [id number] Loc: [place], [place] [address] Phys: Virgil Velasquez MD Acct: [id number] Dis Date: Status: REG ER PH ONE #: [phone] Exam Date: 09/10/20195 FAX #: [phone] Reason: Vomiting after PEG tube replacement EXA MS: CPT CODE: [id number] CT AB D PELVIS W/CONT 22298 <Continued> Prostate is not enlarged. No pelvic [...] . CTDI: DLP: Trns cb Date/Time: 09/10/2019 (171) t.SDR.TH4 Orig Print D/T: S: 09/10/2019 (0006) PAGE 2 Signed Report BASIC METABOLIC [id number] 15:56:00* Test Item Value Reference Range Interpretation [...] CA) 10.6 mg/dL 8.5-10.1 H HEPATIC FUNCTION [id number] 15:56:00* Test Item Value Reference Range Interpretation [...] reference range due to change in reagent. [id number] 15:56:00* Test Item Value Reference Range Interpretation Comments LIPASE (test code = LIP) 63 U/L 73.0-393.0 L BASIC METABOLIC [id number] 15:48:00* Test Item Value Reference Range Interpretation [...] code = CA) mg/dL 8.5-10.1 HEPATIC FUNCTION [id number] 15:48:00* Test Item Value Reference Range Interpretation [...] TOTAL (test code = ALKP) IUnit/L 45-117 [id number] 15:48:00* Test Item Value Reference Range Interpretation Comments LIPASE (test code = LIP) U/L 73.0-393.0 CBC W/O [id number] 15:37:00* Test Item Value Reference Range Interpretation [...] MPV) 12.7 fL 6.7-11.0 H CBC W/O [id number] 15:36:00* Test Item Value Reference Range Interpretation [...] 6.7-11.0 - CONT INJ GS/ DU/ JJ/ [id number] 09:56:00 FAX: Virgil Montero MD [place]: St: REG Name: VANESSA ANDREA [facility] : [birth year] Age/S: 44/M [address] [facility] Unit #: [id number] Loc: [place] [address] Phys: Virgil Montero MD Acct: [id number] Dis Date: Status: REG ER PHONE #: [phone] Exam Date: 09/10/2019951 FAX #: [phone] Reason: peg tube replacement EXAMS: CPT CODE: [id number] CONT INJ GS/ DU/ JJ/ G G 13103 EXAM: KUB and evaluation of gastro stomy [...] By: WillGRW Orig Print D/T: S: 09/10/2019 (57) PAGE 1 Signed Report Blood Culture 2019-08-18 01:37:00* Test Item Value Reference Range Interpretation Comments Blood Culture (test code = 11039378) NO GROWTH AFTER 5 DAYS, FINAL REPORT [facility] HospitalChlamydia pneumoniae DNA (PCR)2019-08-16 10:36:00* Test Item Value Reference Range Interpretation Comments Chlamydia pneumoniae DNA (PCR) (test code = Chlamydia pneumoniae DNA (PCR)) NOT DETECTED NOT DETECT [facility] HospitalInfluenza Type A (RT-PCR)2019-08-16 10:36:00* Test Item Value Reference Range Interpretation Comments Influenza Type A (RT-PCR) (test code = 706433331) NOT DETECTED NOT DETECT [facility] HospitalMycoplasma pneumoniae (PCR)2019-08-16 10:36:00* Test Item Value Reference Range Interpretation Comments Mycoplasma pneumoniae (PCR) (test code = Mycoplasma pn eumoniae (PCR)) NOT DETECTED NOT DETECT [facility] HospitalInfluenza Type B (RT-PCR)2019-08-16 10:36:00* Test Item Value Reference Range Interpretation Comments Influenza Type B (RT-PCR) (test code = 896454945) NOT DETECTED NOT DETECT [facility] HospitalRespiratory Syncytial Virus (PCR) 2019-08-16 10:36:00* Test Item Value Reference Range Interpretation Comments Respiratory Syncytial Virus (PCR) (test code = 620755000) NO T DETECTED NOT DETECT [facility] HospitalBordetella pertussis DNA (PCR)2019-08-16 10:36:00* Test Item Value Reference Range Interpretation Comments Bordetella pertussis DNA (PCR) (test code = 171451519) NOT DETEC GIOVANNA NOT DETECT [facility] HospitalParainfluenza Type 1 (PCR)2019-08-16 10:36:00* Test Item Value Reference Range Interpretation Comments Parainfluenza Type 1 (PCR) (test code = 587604489) NOT DETECTED NOT DETECT [facility] HospitalParainfluenza Type 2 (PCR)2019-08-16 10:36:00* Test Item Value Reference Range Interpretation Comments Parainfluenza Type 2 (PCR) (test code = 211007344) NOT DETECTED NOT DETECT [facility]2019-08[facility]16 10:36:00* Test Item Value Reference Range Interpretation Comments Parainfluenza Type 3 (PCR) (test code = 680497521) NOT DETECTED NOT DETECT [facility] Type 4 (PCR)2019-08-16 10:36:00* Test Item Value Reference Range Interpretation Comments Parainfluenza Type 4 (PCR) (test code = Parainfluenza Type 4 (PCR)) NOT DETECTED NOT DETECT [facility] HospitalRhinovirus (PCR)2019-08-16 10:36:00* Test Item Value Reference Range Interpretation Comments Rhinovirus (PCR) (test code = 233500166) NOT DETECTED NOT DETECT [facility] HospitalHuman Metapneumovirus (PCR)2019-08-16 10:36:00* Test Item Value Reference Range Interpretation Comments Human Metapneumovirus (PCR) (test code = 408076408) NOT DETECTED NO T DETECT [facility] HospitalAdenovirus (PCR)2019-08-16 10:36:00* Test Item Value Reference Range Interpretation Comments Adenovirus (PCR) (test code = 734170296) NOT DETECTED NOT DETECT [facility] HospitalCoronavirus Type HKU1 (PCR)2019-08-16 10:36:00* Test Item Value Reference Range Interpretation Comments Coronavirus Type HKU1 (PCR) (test code = Coronavirus T ype HKU1 (PCR)) NOT DETECTED NOT DETECT [facility] HospitalCoronavirus Type NL63 (PCR)2019-08-16 10:36:00* Test Item Value Reference Range Interpretation Comments Coronavirus Type NL63 (PCR) (test code = Coronavirus T ype NL63 (PCR)) NOT DETECTED NOT DETECT [facility] HospitalCoronavirus Type OC43 (PCR)2019-08-16 10:36:00* Test Item Value Reference Range Interpretation Comments Coronavirus Type OC43 (PCR) (test code = Coronavirus T ype OC43 (PCR)) NOT DETECTED NOT DETECT [facility] HospitalCoronavirus Type 229E (PCR)2019-08-16 10:36:00* Test Item Value [...] management decisions. This sample was tested at [facility] using the SYSTRANAr ray Respiratory Panel. It is FDA cleared and has been verified and approved by [facility] for clinical use on nasopharyngeal swa b specimens.ALL RESPIRATORY VIRAL PANEL Testing performed at [address] [address]DRCAMQN HAVE BEEN CALLED TO THE [facility] [place] Qderafa6200-40-19 20:32:00* Test Item Value Reference Range Interpretation Comments Bedside Glucose (test code = 00546-0) 112 70-120 Meter ID: [id number] [facility] glucose measurement by glucometer (mass/volume)2019-08-15 11:26:00* Test Item Value Reference Range Interpretation Comments Bedside Glucose (test code = 99379-1) 112 70-120 Meter ID: [id number] [facility]illary blood glucose measurement by glucometer (mass/volume)2019-08-15 11:26:00* Test Item Value Reference Range Interpretation Comments Bedside Glucose (test code = 14261-4) 112 70-120 Meter ID: [id number] [facility] SystemCap[facility] blood glucose measurement by glucometer (mass/volume)2019-08-15 11:26:00* Test Item Value Reference Range Interpretation Comments Bedside Glucose (test code = 46975-6) 112 70-120 Meter ID: [id number] [facility] Centerodium Level 2019-08-15 05:37:00* Test Item Value Reference Range Interpretation Comments Sodium Level (test code = 2951-2) 145 136-145 [facility] HospitalPotassium Rupqr4333-57-71 05:37:00* Test Item Value Reference Range Interpretation Comments Potassium Level (test code = 2823-3) 3.3 3.5-5.1 L [facility] HospitalChloride Piydx8095-76-03 05:37:00* Test Item Value Reference Range Interpretation Comments Chloride Level (test code = 2075-0) 110 98-107 H [facility] HospitalCarbon Dioxide Ziuts3887-43-20 05:37:00* Test Item Value Reference Range Interpretation Comments Carbon Dioxide Level (test code = 2028-9) 26 22-29 [facility] HospitalAnion Enl0725-99-91 05:37:00* Test Item Value Reference Range Interpretation Comments Anion Gap (test code = 94778-6) 12.3 8-16 [facility] HospitalBlood Urea Jqapoysk8370-42-78 05:37:00* Test Item Value Reference Range Interpretation Comments Blood Urea Nitrogen (test code = 3094-0) 11 7-26 [facility] HospitalCreatinine2020-04-06 05:37:00* Test Item Value Reference Range Interpretation Comments Creatinine (test code = 2160-0) 0.54 0.72-1.25 L [facility] HospitalBUN/Creatinine Qarco6253-74-23 05:37:00* Test Item Value Reference Range Interpretation Comments BUN/Creatinine Ratio (test code = 3097-3) 20 6-25 [facility] HospitalEstimat Glomerular Filtration Rate 2019-08-15 05:37:00* Test Item Value Reference Range Interpretation Comments Estimat Glomerular Filtration Rate (test code = 482038839) > 60 >60 Ranges were taken from the National Kidney Disease Education Program and the [facility] Kid[facility] Foundation literature.Reference ranges:60 or greater: Ugszue90-22 ( for 3 consecutive months): Chronic kidney disease 15 or less: Kidney failureAudie L. Murphy Memorial VA HospitalGlucose Lfqfq9605-08-89 05:37:00* Test Item Value Reference Range Interpretation Comments Glucose Level (test code = DUQ7394) 88 74-118 [facility] HospitalCalcium Kkxru3397-10-27 05:37:00* Test Item Value Reference Range Interpretation Comments Calcium Level (test code = 08496-6) 8.5 8.4-10.2 [facility] HospitalCoronavirus (PCR)2019-08-15 05:13:00* Test Item Value Reference Range [...] to perform high complexity tests.Specimen sent to [facility] and testing performed by [facility] [address] [place] [address] [phone] Director: Jose Alberto M.D.CLIA # 4 [id number] Regional Medical Centererum or plasma sodium measurement (moles/volume)2019-08-15 04:50:00* Test Item Value Reference Range Interpretation Comments Sodium Level (test code = 2951-2) 145 136-145 [facility] Centererum or plasma potassium measurement (moles/volume)2019-08-15 04:50:00* Test Item Value Reference Range Interpretation Comments Potassium Level (test code = 2823-3) 3.3 3.5-5.1 [facility] Centererum or plasma chloride measurement (moles/volume)2019-08-15 04:50:00* Test Item Value Reference Range Interpretation Comments Chloride Level (test code = 2075-0) 110 98-107 [facility] Centererum or plasma carbon dioxide, total measurement (moles/volume)2019-08-15 04:50:00* Test Item Value Reference Range Interpretation Comments Carbon Dioxide Level (test code = 2028-9) 26 22-29 [facility] Centererum or plasma anion pdz3482-33-42 04:50:00* Test Item Value Reference Range Interpretation Comments Anion Gap (test code = 84120-1) 12.3 8-16 [facility] Centererum or plasma urea nitrogen measurement (mass/volume)2019-08-15 04:50:00* Test Item Value Reference Range Interpretation Comments Blood Urea Nitrogen (test code = 3094-0) 11 7-26 [facility] Centererum or plasma creatinine measurement (mass/volume)2019-08-15 04:50:00* Test Item Value Reference Range Interpretation Comments Creatinine (test code = 2160-0) 0.54 0.72-1.25 [facility] Centererum or plasma urea nitrogen/creatinine mass gawry3135-99-31 04:50:00* Test Item Value Reference Range Interpretation Comments BUN/Creatinine Ratio (test code = 3097-3) 20 6-25 [facility] HospitalEstimated glomerular filtration rate (GFR) aiuzsrpxjioon9790-33-59 04:50:00* Test Item Value Reference Range Interpretation Comments Estimat Glomerular Filtration Rate (test code = 871114792) > 60 >60 Ranges were taken from the National Kidney Disease Education Program and the [facility] Kid[facility] Foundation literature.Reference ranges:60 or greater: Rukfjv96-19 ( for 3 consecutive months): Chronic kidney disease 15 or less: Kidney failureAudie L. Murphy Memorial VA HospitalGlucose qfomldpuhwb1085-61-46 04:50:00* Test Item Value Reference Range Interpretation Comments Glucose Level (test code = FBT9939) 88 74-118 [facility] Centererum or plasma calcium measurement (mass/volume)2019-08-15 04:50:00* Test Item Value Reference Range Interpretation Comments Calcium Level (test code = 91989-7) 8.5 8.4-10.[address] [facility] SINGLE (PORTABLE)2019-08-14 10:31:00 [facility] [address] [address] Patient Name: VANESSA KHOURY MR #: [id number] : 1975 Age/Sex: 44/M Req #: [id number] Adm Physician: ABDI TEJADA MD Ordered by: ANY CHACON MD Report #: [id number] Location: ICU Room/Bed: ICU formerly [facility] Procedure: [id number] DX/CH EST SINGLE (PORTABLE) Exam Date: 08/14/19 [...] appropriate clinical context. Signed by: Dr. Chavo Arriloa MD on 08/13 10:34 AM Dictated By: HCAVO ARRIOLA MD 103 Transcribed By: SARAH on 08/14/191033 COPY TO: ANY CHACON MD Total Aamhfutwo7759-40-28 05:44:00* Test Item Value Reference Range Interpretation Comments Total Bilirubin (test code = 1975-2) 0.5 0.2-1.2 [facility] HospitalAspartate Amino Transf (AST/SGOT) 2019-08-14 05:44:00* Test Item Value Reference Range Interpretation Comments Aspartate Amino Transf (AST/SGOT) (test code = Aspartate Amino Transf (AST/SGOT)) 18 5-34 [facility] HospitalAlanine Aminotransferase (ALT/SGPT) 2019-08-14 05:44:00* Test Item Value Reference Range Interpretation Comments Alanine Aminotransferase (ALT/SGPT) (test code = 1742-6) 17 0-55 [facility] HospitalTotal Fmspfru7689-47-07 05:44:00* Test Item Value Reference Range Interpretation Comments Total Protein (test code = 2885-2) 5.9 6.5-8.1 L [facility] HospitalAlbumin2020-04-05 05:44:00* Test Item Value Reference Range Interpretation Comments Albumin (test code = 1751-7) 2.5 3.5-5.0 L [facility] HospitalGlobulin2020-04-05 05:44:00* Test Item Value Reference Range Interpretation Comments Globulin (test code = 13718-4) 3.4 2.3-3.5 [facility] HospitalAlbumin/Globulin Meffy4027-91-67 05:44:00 * Test Item Value Reference Range Interpretation Comments Albumin/Globulin Ratio (test code = 1759-0) 0.7 0.8-2.0 L [facility] HospitalAlkaline Gyonaoilxue0236-99-78 05:44:00* Test Item Value Reference Range Interpretation Comments Alkaline Phosphatase (test code = 6768-6) 108 40-150 [facility] HospitalProthrombin Orju3474-77-61 05:40:00* Test Item Value Reference Range Interpretation Comments Prothrombin Time (test code = 5902-2) 15.9 11.9-14.5 H [facility] HospitalProthromb Time International Ratio 2019-08-14 05:40:00* Test Item Value Reference Range Interpretation Comments Prothromb Time International Ratio (test code = 6301-6) 1.19 Oral Anticoagulant Therapy INR Values:1. Low Intensity Therapy 1.5 - 2.02 . Moderate Intensity Therapy 2.0 - 3.03. High Intensity Therapy(1) 2.5 - 3. 54. High Intensity Therapy(2) 3.0 - 4.05. Panic Value INR > 5.0 [facility] HospitalWhite Blood Cbvzv4411-15-81 05:25:00* Test Item Value Reference Range Interpretation Comments White Blood Count (test code = 6690-2) 7.01 4.8-10.8 [facility] HospitalRed Blood Slvrx5308-65-09 05:25:00* Test Item Value Reference Range Interpretation Comments Red Blood Count (test code = 789-8) 3.26 4.3-5.7 L [facility] HospitalHemoglobin2020-04-05 05:25:00* Test Item Value Reference Range Interpretation Comments Hemoglobin (test code = 84945-1) 9.5 14.0-18.0 L [facility] HospitalHematocrit2020-04-05 05:25:00* Test Item Value Reference Range Interpretation Comments Hematocrit (test code = 4544-3) 31.1 38.2-49.6 L [facility] HospitalMean Corpuscular Ofcxsr0087-20-78 05:25:00* Test Item Value Reference Range Interpretation Comments Mean Corpuscular Volume (test code = 787-2) 95.4 81-99 [facility] HospitalMean Corpuscular Jmobekxijk0123-65-65 05:25:00* Test Item Value Reference Range Interpretation Comments Mean Corpuscular Hemoglobin (test code = 785-6) 29.1 28-32 [facility] HospitalMean Corpuscular Hemoglobin Concent 2019-08-14 05:25:00* Test Item Value Reference Range Interpretation Comments Mean Corpuscular Hemoglobin Concent (test code = 786-4) 30.5 31-35 L [facility] HospitalRed Cell Distribution Loidm4817-70-02 05:25:00* Test Item Value Reference Range Interpretation Comments Red Cell Distribution Width (test code = 01324-0) 13.2 11.7 -14.4 [facility] HospitalPlatelet Gylzw0021-27-23 05:25:00* Test Item Value Reference Range Interpretation Comments Platelet Count (test code = 777-3) 92 140-360 L [facility] HospitalNeutrophils (%) (Auto)2019-08-14 05:25:00 * Test Item Value Reference Range Interpretation Comments Neutrophils (%) (Auto) (test code = 22596-0) 73.3 38.7-80.0 [facility] HospitalLymphocytes (%) (Auto)2019-08-14 05:25:00 * Test Item Value Reference Range Interpretation Comments Lymphocytes (%) (Auto) (test code = 736-9) 18.7 18.0-39.1 [facility] HospitalMonocytes (%) (Auto)2019-08-14 05:25:00* Test Item Value Reference Range Interpretation Comments Monocytes (%) (Auto) (test code = 5905-5) 6.7 4.4-11.3 [facility] HospitalEosinophils (%) (Auto)2019-08-14 05:25:00 * Test Item Value Reference Range Interpretation Comments Eosinophils (%) (Auto) (test code = 713-8) 0.7 0.0-6.0 [facility] HospitalBasophils (%) (Auto)2019-08-14 05:25:00* Test Item Value Reference Range Interpretation Comments Basophils (%) (Auto) (test code = 706-2) 0.3 0.0-1.0 [facility] HospitalIM GRANULOCYTES %2019-08-14 05:25:00* Test Item Value Reference Range Interpretation Comments IM GRANULOCYTES % (test code = IM GRANULOCYTES %) 0.3 0.0- 1.0 [facility] HospitalNeutrophils # (Auto)2019-08-14 05:25:00* Test Item Value Reference Range Interpretation Comments Neutrophils # (Auto) (test code = 751-8) 5.1 2.1-6.9 [facility] HospitalLymphocytes # (Auto)2019-08-14 05:25:00* Test Item Value Reference Range Interpretation Comments Lymphocytes # (Auto) (test code = 74870-9) 1.3 1.0-3.2 [facility] HospitalMonocytes # (Auto)2019-08-14 05:25:00* Test Item Value Reference Range Interpretation Comments Monocytes # (Auto) (test code = 742-7) 0.5 0.2-0.8 [facility] HospitalEosinophils # (Auto)2019-08-14 05:25:00* Test Item Value Reference Range Interpretation Comments Eosinophils # (Auto) (test code = 711-2) 0.1 0.0-0.4 [facility] HospitalBasophils # (Auto)2019-08-14 05:25:00* Test Item Value Reference Range Interpretation Comments Basophils # (Auto) (test code = 704-7) 0.0 0.0-0.1 [facility] HospitalAbsolute Immature Granulocyte (auto 2019-08-14 05:25:00* Test Item Value Reference Range Interpretation Comments Absolute Immature Granulocyte (auto (mabel t code = Absolute Immature Granulocyte (auto) 0.02 0-0.1 [facility] HospitalBlood leukocytes automated count (number/volume)2019-08-14 04:39:00* Test Item Value Reference Range Interpretation Comments White Blood Count (test code = 6690-2) 7.01 4.8-10.8 [facility] HospitalBlood erythrocytes automated count (number/volume)2019-08-14 04:39:00* Test Item Value Reference Range Interpretation Comments Red Blood Count (test code = 789-8) 3.26 4.3-5.7 [facility] HospitalBlood hemoglobin measurement (moles/volume)2019-08-14 04:39:00* Test Item Value Reference Range Interpretation Comments Hemoglobin (test code = 60999-8) 9.5 14.0-18.0 [facility] HospitalAutomated blood hematocrit (volume fraction)2019-08-14 04:39:00* Test Item Value Reference Range Interpretation Comments Hematocrit (test code = 4544-3) 31.1 38.2-49.6 [facility] HospitalAutomated erythrocyte mean corpuscular qwckpa1649-34-20 04:39:00* Test Item Value Reference Range Interpretation Comments Mean Corpuscular Volume (test code = 787-2) 95.4 81-99 [facility] HospitalAutomated erythrocyte mean corpuscular hemoglobin (mass per erythrocyte)2019-08-14 04:39:00* Test Item Value Reference Range Interpretation Comments Mean Corpuscular Hemoglobin (test code = 785-6) 29.1 28-32 [facility] HospitalAutcone health [facility] erythrocyte mean corpuscular hemoglobin concentration measurement (mass/volume)2019-08-14 04:39:00* Test Item Value Reference Range Interpretation Comments Mean Corpuscular Hemoglobin Concent (test code = 786-4) 30.5 31-35 [facility] HospitalRDW CawKf-Ocp0062-51-05 04:39:00* Test Item Value Reference Range Interpretation Comments Red Cell Distribution Width (test code = 54655-7) 13.2 11.7 -14.4 [facility] HospitalAut[facility]ed blood platelet count (count/volume)2019-08-14 04:39:00* Test Item Value Reference Range Interpretation Comments Platelet Count (test code = 777-3) 92 140-360 [facility] HospitalAutomated blood segmented neutrophil count as percentage of total arzqhltpji3914-51-73 04:39:00* Test Item Value Reference Range Interpretation Comments Neutrophils (%) (Auto) (test code = 30575-8) 73.3 38.7-80.0 [facility] HospitalAutat[facility]ed blood lymphocyte count as percentage ot total hhowukmjcc9027-30-19 04:39:00* Test Item Value Reference Range Interpretation Comments Lymphocytes (%) (Auto) (test code = 736-9) 18.7 18.0-39.1 [facility] HospitalAutomated blood monocyte count as percentage of total eibussfatb6084-79-92 04:39:00* Test Item Value Reference Range Interpretation Comments Monocytes (%) (Auto) (test code = 5905-5) 6.7 4.4-11.3 [facility] HospitalAutomated blood eosinophil count as percentage of total dqxfjpjoiv6314-44-29 04:39:00* Test Item Value Reference Range Interpretation Comments Eosinophils (%) (Auto) (test code = 713-8) 0.7 0.0-6.0 [facility] HospitalAutomated blood basophil count as percentage of total pmyieehhuz9475-90-82 04:39:00* Test Item Value Reference Range Interpretation Comments Basophils (%) (Auto) (test code = 706-2) 0.3 0.0-1.0 [facility] HospitalFluoroscopic procedure less than one hour zfsqvhgj7220-87-56 04:39:00* Test Item Value Reference Range Interpretation Comments IM GRANULOCYTES % (test code = IM GRANULOCYTES %) 0.3 0.0- 1.0 [facility] HospitalAutomated blood neutrophil count 2019-08-14 04:39:00* Test Item Value Reference Range Interpretation Comments Neutrophils # (Auto) (test code = 751-8) 5.1 2.1-6.9 [facility] HospitalBlood lymphocytes count (number/volume) 2019-08-14 04:39:00* Test Item Value Reference Range Interpretation Comments Lymphocytes # (Auto) (test code = 29707-9) 1.3 1.0-3.2 [facility] HospitalBlood monocytes automated count (number/volume)2019-08-14 04:39:00* Test Item Value Reference Range Interpretation Comments Monocytes # (Auto) (test code = 742-7) 0.5 0.2-0.8 [facility] HospitalAutomated blood eosinophil count 2019-08-14 04:39:00* Test Item Value Reference Range Interpretation Comments Eosinophils # (Auto) (test code = 711-2) 0.1 0.0-0.4 [facility] HospitalAutomated blood basophil count (count/volume)2019-08-14 04:39:00* Test Item Value Reference Range Interpretation Comments Basophils # (Auto) (test code = 704-7) 0.0 0.0-0.1 [facility] HospitalFluoroscopic procedure less than one hour kipzbtpo1020-00-26 04:39:00* Test Item Value Reference Range Interpretation Comments Absolute Immature Granulocyte (auto (mabel t code = Absolute Immature Granulocyte (auto) 0.02 0-0.1 [facility] HospitalProthrombin time (PT) in platelet poor plasma by coagulation fazlh2368-86-99 04:39:00* Test Item Value Reference Range Interpretation Comments Prothrombin Time (test code = 5902-2) 15.9 11.9-14.5 [facility] HospitalINR in Platelet poor plasma by Coagulation mrigf1735-77-28 04:39:00* Test Item Value Reference Range Interpretation Comments Prothromb Time International Ratio (test code = 6301-6) 1.19 Oral Anticoagulant Therapy INR Values:1. Low Intensity Therapy 1.5 - 2.02 . Moderate Intensity Therapy 2.0 - 3.03. High Intensity Therapy(1) 2.5 - 3. 54. High Intensity Therapy(2) 3.0 - 4.05. Panic Value INR > 5.0 [facility] plasma total bilirubin measurement (mass/volume)2019-08-14 04:39:00* Test Item Value Reference Range Interpretation Comments Total Bilirubin (test code = 1975-2) 0.5 0.2-1.2 [facility] HospitalFluoroscopic procedure less than one hour wbtqrhvq1159-18-52 04:39:00* Test Item Value Reference Range Interpretation Comments Aspartate Amino Transf (AST/SGOT) (test code = Aspartate Amino Transf (AST/SGOT)) 18 5-34 [facility]ererum or plasma alanine aminotransferase measurement (enzymatic activity/volume)2019-08-14 04:39:00* Test Item Value Reference Range Interpretation Comments Alanine Aminotransferase (ALT/SGPT) (test code = 1742-6) 17 0-55 [facility]ererum or plasma protein measurement (mass/volume)2019-08-14 04:39:00* Test Item Value Reference Range Interpretation Comments Total Protein (test code = 2885-2) 5.9 6.5-8.1 [facility] Centererum or plasma albumin measurement (mass/volume)2019-08-14 04:39:00* Test Item Value Reference Range Interpretation Comments Albumin (test code = 1751-7) 2.5 3.5-5.0 [facility] HospitalPlasma globulin measurement (mass/volume) 2019-08-14 04:39:00* Test Item Value Reference Range Interpretation Comments Globulin (test code = 15029-5) 3.4 2.3-3.5 [facility]ererum or plasma albumin/globulin mass jvoho2713-70-90 04:39:00* Test Item Value Reference Range Interpretation Comments Albumin/Globulin Ratio (test code = 1759-0) 0.7 0.8-2.0 [facility]ererum or plasma alkaline phosphatase measurement (enzymatic activity/volume)2019-08-14 04:39:00* Test Item Value Reference Range Interpretation Comments Alkaline Phosphatase (test code = 6768-6) 108 40-150 [facility] HospitalCreatine Kinase OW2963-82-13 07:46:00* Test Item Value Reference Range Interpretation Comments Creatine Kinase MB (test code = 27634-5) 0.60 0-5.0 [facility] HospitalTroponin X2369-30-04 07:46:00* Test Item Value Reference Range Interpretation Comments Troponin I (test code = 95454-8) 0.018 0-0.300 [facility] HospitalCreatine Ugcdli7177-57-60 07:24:00* Test Item Value Reference Range Interpretation Comments Creatine Kinase (test code = 2157-6) 64 30-200 [facility]ererum or plasma creatine kinase measurement (enzymatic activity/volume)2019-08-13 06:53:00* Test Item Value Reference Range Interpretation Comments Creatine Kinase (test code = 2157-6) 64 30-200 [facility] Centererum or plasma creatine kinase MB measurement (mass/volume)2019-08-13 06:53:00* Test Item Value Reference Range Interpretation Comments Creatine Kinase MB (test code = 52588-1) 0.60 0-5.0 [facility] HospitalTroponin I measurement by highly sensitive enzyme mrgthhxulnt4435-42-73 06:53:00* Test Item Value Reference Range Interpretation Comments Troponin I (test code = 40550-4) 0.018 0-0.300 [facility] HospitalCT CHEST JS0025-87-63 04:56:00 [facility] [address] [address] Patient Name: VANESSA KHOURY MR #: [id number] : 1975 Age/Sex: 44/M Req #: [id number] Adm Physician: Ordered by: KAY PHILIPPE MD Report #: [id number] Location: ER Room/Bed: Procedure: 0404-[address]/CT CHEST WO Exam Date: Exam Time: REPORT STATUS: Signed CT chest without enha ncement CPT code: 69493 INDICATION: Fever, atelectasis TECHNIQUE : Thin collimation [...] 5:04 AM Dictated By: DAVID BATES MD 3 Transcribed By: SARAH on 08/13/19503 COPY TO: KAY PHILIPPE MD Lactic Acid Yzmer7497-07-52 03:59:00* Test Item Value Reference Range Interpretation Comments Lactic Acid Level (test code = Lactic Acid Level) 1.0 0.5- 2.0 [facility] System[facility] Lzdxx3770-88-12 03:41:00* Test Item Value Reference Range Interpretation Comments Urine Color (test code = 5778-6) ASHISH YELLOW H [facility] HospitalUrine Qhkctws8142-75-40 03:41:00* Test Item Value Reference Range Interpretation Comments Urine Clarity (test code = 64930-4) HAZY CLEAR [facility] HospitalUrine Specific Pisqtkj9167-71-38 03:41:00 * Test Item Value Reference Range Interpretation Comments Urine Specific Tippo (test code = 5811-5) 1.030 1.010-1.02 5 H [facility] HospitalUrine oC4359-17-32 03:41:00* Test Item Value Reference Range Interpretation Comments Urine pH (test code = 46110-5) 6 5-7 [facility] HospitalUrine Leukocyte Fybkuhwu6167-67-17 03:41:00* Test Item Value Reference Range Interpretation Comments Urine Leukocyte Esterase (test code = 5799-2) NEGATIVE NEGATIVE [facility] HospitalUrine Dgevivy6260-22-98 03:41:00* Test Item Value Reference Range Interpretation Comments Urine Nitrite (test code = 90060-1) NEGATIVE NEGATIVE [facility] HospitalUrine Zmhsehh9305-34-06 03:41:00* Test Item Value Reference Range Interpretation Comments Urine Protein (test code = 5804-0) 2+ NEGATIVE H [facility] HospitalUrine Glucose (UA)2019-08-13 03:41:00* Test Item Value Reference Range Interpretation Comments Urine Glucose (UA) (test code = 2349-9) NEGATIVE NEGATIVE [facility] HospitalUrine Kwvfrml9948-40-70 03:41:00* Test Item Value Reference Range Interpretation Comments Urine Ketones (test code = 77547-9) NEGATIVE NEGATIVE [facility] HospitalUrine Neqnjsnpjxcb2358-28-63 03:41:00* Test Item Value Reference Range Interpretation Comments Urine Urobilinogen (test code = 14805-1) 1 0.2-1 [facility] HospitalUrine Xhmwfbxfa5978-84-77 03:41:00* Test Item Value Reference Range Interpretation Comments Urine Bilirubin (test code = 1978-6) NEGATIVE NEGATIVE [facility] HospitalUrine Jufeb9091-43-60 03:41:00* Test Item Value Reference Range Interpretation Comments Urine Blood (test code = 24226-8) NEGATIVE NEGATIVE [facility] HospitalUrine NCW9854-63-17 03:41:00* Test Item Value Reference Range Interpretation Comments Urine WBC (test code = 5821-4) 0-5 0-5 [facility] HospitalUrine TJW7952-44-58 03:41:00* Test Item Value Reference Range Interpretation Comments Urine RBC (test code = 48122-2) NONE 0-5 [facility] HospitalUrine Ahuiofkg9074-89-89 03:41:00* Test Item Value Reference Range Interpretation Comments Urine Bacteria (test code = 00234-7) FEW NONE [facility] HospitalUrine Epithelial Vqaqm3925-80-09 03:41:00 * Test Item Value Reference Range Interpretation Comments Urine Epithelial Cells (test code = 44293-1) FEW NONE [facility] HospitalInfluenza Virus Types A,B Antigen 2019-08-13 03:10:00* Test Item Value Reference Range Interpretation Comments Influenza Virus Types A,B Antigen (test code = 00637-1) NEGATIVE NEGATIVE [facility] HospitalGroup A Streptococcus Hzyofl2991-63-75 03:10:00* Test Item Value Reference Range Interpretation Comments Group A Streptococcus Screen (test code = 50892-6) NEGATIVE NEG ATIVE [facility] HospitalCHEST SINGLE (PORTABLE)2019-08-13 03:06:00 [facility] [address] [place] [address] Patient Name: VANESSA KHOURY MR #: [id number] : 1975 Age/Sex: 44/M Req #: [id number] Adm Physician: Ordered by: KAY PHILIPPE MD Report #: [id number] Location: ER Room/Bed: Procedure: 0404-001 4 DX/CHEST SINGLE (PORTABLE) Exam Date: 08/13/19 Jani gutierrez Time: 247 REPORT STATUS: Signed EXAMINATION: CHEST SINGLE (PORTABLE) COMPARISON: None INDICATI ON: Fever fever [id number] Y DISCUSSION: Frontal view o f the [...] MD Fluoroscopic procedure less than one hour eesqedoy8959-78-23 03:00:00* Test Item Value Reference Range Interpretation Comments Lactic Acid Level (test code = Lactic Acid Level) 1.0 0.5- 2.0 [facility] HospitalUrine color tfbuxahfjlznv8509-81-21 02:20:00* Test Item Value Reference Range Interpretation Comments Urine Color (test code = 5778-6) ASHISH YELLOW [facility] HospitalUrine jbkpckr3207-70-49 02:20:00* Test Item Value Reference Range Interpretation Comments Urine Clarity (test code = 26421-5) HAZY CLEAR [facility] Centerpecific gravity of Urine by Test strip 2019-08-13 02:20:00* Test Item Value Reference Range Interpretation Comments Urine Specific Tippo (test code = 5811-5) 1.030 1.010-1.02 5 [facility] HospitalUrine pH measurement by automated test qcdvl9579-04-98 02:20:00* Test Item Value Reference Range Interpretation Comments Urine pH (test code = 28812-7) 6 5-7 [facility] HospitalUrine leukocyte esterase detection by edugisby7867-35-17 02:20:00* Test Item Value Reference Range Interpretation Comments Urine Leukocyte Esterase (test code = 5799-2) NEGATIVE NEGATIVE [facility] HospitalUrine nitrite fqnmmgcva5978-92-67 02:20:00* Test Item Value Reference Range Interpretation Comments Urine Nitrite (test code = 53375-1) NEGATIVE NEGATIVE [facility] HospitalUrine protein measurement by test strip (mass/volume)2019-08-13 02:20:00* Test Item Value Reference Range Interpretation Comments Urine Protein (test code = 5804-0) 2+ NEGATIVE [facility] HospitalUrine glucose eekwhitno9847-90-84 02:20:00* Test Item Value Reference Range Interpretation Comments Urine Glucose (UA) (test code = 2349-9) NEGATIVE NEGATIVE [facility] HospitalUrine ketones detection by automated test iefph6510-41-20 02:20:00* Test Item Value Reference Range Interpretation Comments Urine Ketones (test code = 57190-8) NEGATIVE NEGATIVE [facility] HospitalUrine urobilinogen measurement by test strip (mass/volume)2019-08-13 02:20:00* Test Item Value Reference Range Interpretation Comments Urine Urobilinogen (test code = 63674-6) 1 0.2-1 [facility] HospitalUrine total bilirubin measurement (mass/volume)2019-08-13 02:20:00* Test Item Value Reference Range Interpretation Comments Urine Bilirubin (test code = 1978-6) NEGATIVE NEGATIVE [facility] HospitalUrine erythrocytes szorvtnjj1672-82-80 02:20:00* Test Item Value Reference Range Interpretation Comments Urine Blood (test code = 38862-2) NEGATIVE NEGATIVE [facility] HospitalAutomated urine sediment leukocyte count by microscopy (number/high power field)2019-08-13 02:20:00* Test Item Value Reference Range Interpretation Comments Urine WBC (test code = 5821-4) 0-5 0-5 [facility] HospitalErythrocytes detection in urine sediment by light gnqlqxxsok5132-17-55 02:20:00* Test Item Value Reference Range Interpretation Comments Urine RBC (test code = 90420-4) NONE 0-5 [facility] HospitalBacteria detection in urine sediment by light vczaxzbdja4145-60-70 02:20:00* Test Item Value Reference Range Interpretation Comments Urine Bacteria (test code = 80531-8) FEW NONE [facility] HospitalEpithelial cells detection in urine sediment by light srpbdxfcon7396-55-07 02:20:00* Test Item Value Reference Range Interpretation Comments Urine Epithelial Cells (test code = 27094-5) FEW NONE [facility] HospitalActivated Partial Thromboplast Time 2019-08-13 02:10:00* Test Item Value Reference Range Interpretation Comments Activated Partial Thromboplast Time (test code = 74849-0) 32.7 23.8-35.5 [facility] HospitalArterial Blood bT2652-46-32 02:09:00* Test Item Value Reference Range Interpretation Comments Arterial Blood pH (test code = 2744-1) 7.49 7.31-7.41 H [facility] HospitalArterial Blood Partial Pressure CO2 2019-08-13 02:09:00* Test Item Value Reference Range Interpretation Comments Arterial Blood Partial Pressure CO2 (test code = 2019-8) 32 35-45 L [facility] HospitalArterial Blood [id number] 02:09:00* Test Item Value Reference Range Interpretation Comments Arterial Blood HCO3 (test code = 1960-4) 25 23-28 [facility] HospitalArterial Blood Base Ifptcd3813-22-02 02:09:00* Test Item Value Reference Range Interpretation Comments Arterial Blood Base Excess (test code = 1925-7) 1.0 -2-3 [facility] HospitalFiO22020-04-04 02:09:00* Test Item Value Reference Range Interpretation Comments FiO2 (test code = FiO2) 80 40 [place] UPAudie L. [facility] HospitalFluoroscopic procedure less than one hour tkyevbsi6721-36-77 02:00:00* Test Item Value Reference Range Interpretation [...] Pathology Laboratories are certified under the C [facility]ical Laboratory Improvement Amendments of 1988 (CLIA), 42 U.S.C. section 263a , to perform high complexity tests.Specimen sent to [facility] and testing performed by [facility] [address] [place] [address] [phone] Director: Jose Alberto M.D.CLIA # [id number] [facility] SystemFluoroscopic procedure less than one hour kpwgocac1318-98-20 02:00:00* Test Item Value Reference Range Interpretation [...] to perform high complexity tests.Specimen sent to [facility] and testing performed by [facility] [address] [place] [address] [phone] Director: Jose Alberto M.D.CLIA # [id number] [facility] SystemFluoroscopic procedure less than one hour kzxsbdmn4300-74-52 02:00:00* Test Item Value Reference Range Interpretation [...] to perform high complexity tests.Specimen sent to [facility] and testing performed by [facility] [address] [place] [address] [phone] Director: Jose Alberto M.D.CLIA # 4 [id number] [facility] SystemArterial blood pH measurement 2019-08-13 01:40:00* Test Item Value Reference Range Interpretation Comments Arterial Blood pH (test code = 2744-1) 7.49 7.31-7.41 [facility] QcmD8243-64-30 01:40:00* Test Item Value Reference Range Interpretation Comments Arterial Blood Partial Pressure CO2 (test code = 2019-8) 32 35-45 [facility] HospitalArterial blood bicarbonate measurement (moles/volume)2019-08-13 01:40:00* Test Item Value Reference Range Interpretation Comments Arterial Blood HCO3 (test code = 1960-4) 25 23-28 [facility] HospitalArterial blood base excess by calculation 2019-08-13 01:40:00* Test Item Value Reference Range Interpretation Comments Arterial Blood Base Excess (test code = 1925-7) 1.0 -2-3 [facility] HospitalFluoroscopic procedure less than one hour jrsxuios5699-05-54 01:40:00* Test Item Value Reference Range Interpretation Comments FiO2 (test code = FiO2) 80 40 [place] SET UPAudie L. Murphy [facility] HospitalArterial blood pH mcasazhyqml4963-20-82 01:40:00* Test Item Value Reference Range Interpretation Comments Arterial Blood pH (test code = 2744-1) 7.49 7.31-7.41 [facility] RgoP6876-61-54 01:40:00* Test Item Value Reference Range Interpretation Comments Arterial Blood Partial Pressure CO2 (test code = 2019-8) 32 35-45 [facility] HospitalArterial blood bicarbonate measurement (moles/volume)2019-08-13 01:40:00* Test Item Value Reference Range Interpretation Comments Arterial Blood HCO3 (test code = 1960-4) 25 23-28 [facility] HospitalArterial blood base excess by calculation 2019-08-13 01:40:00* Test Item Value Reference Range Interpretation Comments Arterial Blood Base Excess (test code = 1925-7) 1.0 -2-3 [facility] HospitalFluoroscopic procedure less than one hour iflsjzbx2619-03-69 01:40:00* Test Item Value Reference Range Interpretation Comments FiO2 (test code = FiO2) 80 40 [place]ENT[place] SET [facility]Ar[facility] pH lhxsmbzgsxf3872-28-90 01:40:00* Test Item Value Reference Range Interpretation Comments Arterial Blood pH (test code = 2744-1) 7.49 7.31-7.41 [facility] HospitalpCO2 KspR7991-27-62 01:40:00* Test Item Value Reference Range Interpretation Comments Arterial Blood Partial Pressure CO2 (test code = 2019-8) 32 35-45 [facility] HospitalArterial blood bicarbonate measurement (moles/volume)2019-08-13 01:40:00* Test Item Value Reference Range Interpretation Comments Arterial Blood HCO3 (test code = 1960-4) 25 23-28 [facility] HospitalArterial blood base excess by calculation 2019-08-13 01:40:00* Test Item Value Reference Range Interpretation Comments Arterial Blood Base Excess (test code = 1925-7) 1.0 -2-3 [facility] HospitalFluoroscopic procedure less than one hour kiwxripd6409-49-32 01:40:00* Test Item Value Reference Range Interpretation Comments FiO2 (test code = FiO2) 80 40 [place] [facility] TaylorActivated partial thromboplastin time (aPTT) in platelet poor plasma by coagulation assay 2019-08-13 01:25:00* Test Item Value Reference Range Interpretation Comments Activated Partial Thromboplast Time (test code = 22477-7) 32.7 23.8-35.5 [facility] HospitalInfluenza virus A and B antigen identification by ngumrpmzzygshfdtfs5001-75-08 01:25:00* Test Item Value Reference Range Interpretation Comments Influenza Virus Types A,B Antigen (test code = 44507-0) NEGATIVE NEGATIVE [facility] HospitalFluoroscopic procedure less than one hour imbjormd5293-03-59 01:25:00* Test Item Value Reference Range Interpretation Comments Chlamydia pneumoniae DNA (PCR) (test code = Chlamydia pneumoniae DNA (PCR)) NOT DETECTED NOT DETECT [facility] HospitalRespiratory virus fwifi3287-44-17 01:25:00* Test Item Value Reference Range Interpretation Comments Influenza Type A (RT-PCR) (test code = 463761647) NOT DETECTED NOT DETECT [facility]Fluoroscopic procedure less than one hour fyneeheq4381-89-67 01:25:00* Test Item Value Reference Range Interpretation Comments Mycoplasma pneumoniae (PCR) (test code = Mycoplasma pn eumoniae (PCR)) NOT DETECTED NOT DETECT [facility] SystemRespiratory virus srrtq0347-34-48 01:25:00* Test Item Value Reference Range Interpretation Comments Influenza Type B (RT-PCR) (test code = 825205960) NOT DETECTED NOT DETECT [facility] SystemRespiratory virus wtulu9855-77-53 01:25:00* Test Item Value Reference Range Interpretation Comments Respiratory Syncytial Virus (PCR) (test code = 161314016) NO T DETECTED NOT DETECT [facility] tyzzp4815-80-13 01:25:00* Test Item Value Reference Range Interpretation Comments Bordetella pertussis DNA (PCR) (test code = 736283730) NOT DETEC GIOVANNA NOT DETECT [facility] HospitalRespiratory virus qxmie2046-90-94 01:25:00* Test Item Value Reference Range Interpretation Comments Parainfluenza Type 1 (PCR) (test code = 720686567) NOT DETECTED NOT DETECT [facility] junoi8399-37-56 01:25:00* Test Item Value Reference Range Interpretation Comments Parainfluenza Type 2 (PCR) (test code = 200463157) NOT DETECTED NOT DETECT [facility] HospitalRespiratory virus vtutl6191-24-94 01:25:00* Test Item Value Reference Range Interpretation Comments Parainfluenza Type 3 (PCR) (test code = 198133187) NOT DETECTED NOT DETECT [facility] HospitalFluoroscopic procedure less than one hour ptzwftsh8843-96-87 01:25:00* Test Item Value Reference Range Interpretation Comments Parainfluenza Type 4 (PCR) (test code = Parainfluenza Type 4 (PCR)) NOT DETECTED NOT DETECT [facility] SystemRespiratory virus fixbe9459-90-30 01:25:00* Test Item Value Reference Range Interpretation Comments Rhinovirus (PCR) (test code = 895755237) NOT DETECTED NOT DETECT [facility] HospitalRespiratory virus tccqj5273-83-87 01:25:00* Test Item Value Reference Range Interpretation Comments Human Metapneumovirus (PCR) (test code = 325558766) NOT DETECTED NO T DETECT [facility] HospitalRespiratory virus hiawi0103-65-87 01:25:00* Test Item Value Reference Range Interpretation Comments Adenovirus (PCR) (test code = 956576657) NOT DETECTED NOT DETECT [facility] HospitalFluoroscopic procedure less than one hour dvaespas8890-10-34 01:25:00* Test Item Value Reference Range Interpretation [...] management decisions. This sample was tested at [facility] using the [employer] Respiratory Panel. It is FDA cleared and has been verified and approved by [facility] for clinical use on nasopharyngeal swa b specimens.ALL RESPIRATORY VIRAL PANEL Testing performed at [address] [address]TJQLRLS HAVE BEEN CALLED TO THE [facility] less than one hour [id number] 01:25:00* Test Item Value Reference Range Interpretation Comments Coronavirus Type HKU1 (PCR) (test code = Coronavirus T ype HKU1 (PCR)) NOT DETECTED NOT DETECT [facility]Flu[facility] less than one hour [id number] 01:25:00* Test Item Value Reference Range Interpretation Comments Coronavirus Type NL63 (PCR) (test code = Coronavirus T ype NL63 (PCR)) NOT DETECTED NOT DETECT [facility] HospitalFluoroscopic procedure less than one hour [id number] 01:25:00* Test Item Value Reference Range Interpretation Comments Coronavirus Type OC43 (PCR) (test code = Coronavirus T ype OC43 (PCR)) NOT DETECTED NOT DETECT [facility] antigen detection in [id number] 01:25:00* Test Item Value Reference Range Interpretation Comments Group A Streptococcus Screen (test code = 18279-2) NEGATIVE NEG ATIVE [facility] Hospital[facility] [id number] 01:25:00* Test Item Value Reference Range Interpretation Comments Blood Culture (test code = 65037175) NO GROWTH AFTER 5 DAYS, FINAL REPORT [facility] HospitalInfluenza virus A and B antigen identification by [id number] 01:25:00* Test Item Value Reference Range Interpretation Comments Influenza Virus Types A,B Antigen (test code = 08213-7) NEGATIVE NEGATIVE [facility] HospitalFluoroscopic procedure less than one hour [id number] 01:25:00* Test Item Value Reference Range Interpretation Comments Chlamydia pneumoniae DNA (PCR) (test code = Chlamydia pneumoniae DNA (PCR)) NOT DETECTED NOT DETECT [facility] HospitalRespiratory virus [id number] 01:25:00* Test Item Value Reference Range Interpretation Comments Influenza Type A (RT-PCR) (test code = 946870121) NOT DETECTED NOT DETECT [facility] HospitalFluoroscopic procedure less than one hour [id number] 01:25:00* Test Item Value Reference Range Interpretation Comments Mycoplasma pneumoniae (PCR) (test code = Mycoplasma pn eumoniae (PCR)) NOT DETECTED NOT DETECT [facility] HospitalRespiratory virus [id number] 01:25:00* Test Item Value Reference Range Interpretation Comments Influenza Type B (RT-PCR) (test code = 194194256) NOT DETECTED NOT DETECT [facility] HospitalRes[facility] virus [id number] 01:25:00* Test Item Value Reference Range Interpretation Comments Respiratory Syncytial Virus (PCR) (test code = 129970359) NO T DETECTED NOT DETECT [facility] HospitalRes[facility] virus [id number] 01:25:00* Test Item Value Reference Range Interpretation Comments Bordetella pertussis DNA (PCR) (test code = 165249936) NOT DETEC GIOVANNA NOT DETECT [facility] HospitalRespiratory virus [id number] 01:25:00* Test Item Value Reference Range Interpretation Comments Parainfluenza Type 1 (PCR) (test code = 989266417) NOT DETECTED NOT DETECT [facility] HospitalRespiratory virus [id number] 01:25:00* Test Item Value Reference Range Interpretation Comments Parainfluenza Type 2 (PCR) (test code = 295930401) NOT DETECTED NOT DETECT [facility] HospitalRes[facility] virus [id number] 01:25:00* Test Item Value Reference Range Interpretation Comments Parainfluenza Type 3 (PCR) (test code = 201343513) NOT DETECTED NOT DETECT [facility] HospitalFluoroscopic procedure less than one hour itpvzrat9675-50-21 01:25:00* Test Item Value Reference Range Interpretation Comments Parainfluenza Type 4 (PCR) (test code = Parainfluenza Type 4 (PCR)) NOT DETECTED NOT DETECT [facility] HospitalRespiratory virus avwyn1645-13-05 01:25:00* Test Item Value Reference Range Interpretation Comments Rhinovirus (PCR) (test code = 113190169) NOT DETECTED NOT DETECT [facility] [id number] 01:25:00* Test Item Value Reference Range Interpretation Comments Human Metapneumovirus (PCR) (test code = 872444646) NOT DETECTED NO T DETECT [facility] HospitalRes[facility] virus asukj0106-12-62 01:25:00* Test Item Value Reference Range Interpretation Comments Adenovirus (PCR) (test code = 209700254) NOT DETECTED NOT DETECT [facility] HospitalFluoroscopic procedure less than one hour [id number] 01:25:00* Test Item Value Reference Range Interpretation [...] management decisions. This sample was tested at [facility] using the [employer] Respiratory Panel. It is FDA cleared and has been verified and approved by t [facility] for clinical use on nasopharyngeal swa b specimens.ALL RESPIRATORY VIRAL PANEL Testing performed at [address] [address]TDYFIYH HAVE BEEN CALLED TO THE [facility] SystemFluoroscopic procedure less than one hour dhltngfy7265-63-01 01:25:00* Test Item Value Reference Range Interpretation Comments Coronavirus Type HKU1 (PCR) (test code = Coronavirus T ype HKU1 (PCR)) NOT DETECTED NOT DETECT [facility] HospitalFluoroscopic procedure less than one hour [id number] 01:25:00* Test Item Value Reference Range Interpretation Comments Coronavirus Type NL63 (PCR) (test code = Coronavirus T ype NL63 (PCR)) NOT DETECTED NOT DETECT [facility] HospitalFluoroscopic procedure less than one hour [id number] 01:25:00* Test Item Value Reference Range Interpretation Comments Coronavirus Type OC43 (PCR) (test code = Coronavirus T ype OC43 (PCR)) NOT DETECTED NOT DETECT [facility]reptococcus pyogenes antigen detection in hltxko0564-73-49 01:25:00* Test Item Value Reference Range Interpretation Comments Group A Streptococcus Screen (test code = 38208-6) NEGATIVE NEG ATIVE [facility] Hospital[facility] [id number] 01:25:00* Test Item Value Reference Range Interpretation Comments Blood Culture (test code = 66599441) NO GROWTH AFTER 5 DAYS, FINAL REPORT [facility] HospitalInfluenza virus A and B antigen identification by [id number]3 01:25:00* Test Item Value Reference Range Interpretation Comments Influenza Virus Types A,B Antigen (test code = 43349-5) NEGATIVE NEGATIVE [facility] HospitalFluoroscopic procedure less than one hour [id number] 01:25:00* Test Item Value Reference Range Interpretation Comments Chlamydia pneumoniae DNA (PCR) (test code = Chlamydia pneumoniae DNA (PCR)) NOT DETECTED NOT DETECT [facility] zumht3578-74-54 01:25:00* Test Item Value Reference Range Interpretation Comments Influenza Type A (RT-PCR) (test code = 960211520) NOT DETECTED NOT DETECT [facility] SystemFlu[facility] procedure less than one hour [id number] 01:25:00* Test Item Value Reference Range Interpretation Comments Mycoplasma pneumoniae (PCR) (test code = Mycoplasma pn eumoniae (PCR)) NOT DETECTED NOT DETECT [facility] SystemRes[facility] virus [id number] 01:25:00* Test Item Value Reference Range Interpretation Comments Influenza Type B (RT-PCR) (test code = 905718824) NOT DETECTED NOT DETECT [facility] [id number] 01:25:00* Test Item Value Reference Range Interpretation Comments Respiratory Syncytial Virus (PCR) (test code = 459095081) NO T DETECTED NOT DETECT [facility] HospitalRes[facility] virus afbil0689-54-78 01:25:00* Test Item Value Reference Range Interpretation Comments Bordetella pertussis DNA (PCR) (test code = 536184299) NOT DETEC GIOVANNA NOT DETECT [facility] HospitalRes[facility] virus [id number] 01:25:00* Test Item Value Reference Range Interpretation Comments Parainfluenza Type 1 (PCR) (test code = 602044706) NOT DETECTED NOT DETECT [facility] pimco9178-75-22 01:25:00* Test Item Value Reference Range Interpretation Comments Parainfluenza Type 2 (PCR) (test code = 399351098) NOT DETECTED NOT DETECT [facility] [id number] 01:25:00* Test Item Value Reference Range Interpretation Comments Parainfluenza Type 3 (PCR) (test code = 564088674) NOT DETECTED NOT DETECT [facility] than one hour [id number] 01:25:00* Test Item Value Reference Range Interpretation Comments Parainfluenza Type 4 (PCR) (test code = Parainfluenza Type 4 (PCR)) NOT DETECTED NOT DETECT [facility] HospitalRes[facility] virus jjuri1662-98-03 01:25:00* Test Item Value Reference Range Interpretation Comments Rhinovirus (PCR) (test code = 784286597) NOT DETECTED NOT DETECT [facility] HospitalRes[facility] virus ilxtv1224-68-25 01:25:00* Test Item Value Reference Range Interpretation Comments Human Metapneumovirus (PCR) (test code = 711094915) NOT DETECTED NO T DETECT [facility] HospitalRes[facility] virus [id number] 01:25:00* Test Item Value Reference Range Interpretation Comments Adenovirus (PCR) (test code = 353942211) NOT DETECTED NOT DETECT [facility] HospitalFluoroscopic procedure less than one hour rjqkxryl4220-71-45 01:25:00* Test Item Value Reference Range Interpretation [...] management decisions. This sample was tested at [facility] using the [employer] Respiratory Panel. It is FDA cleared and has been verified and approved by [facility] for clinical use on nasopharyngeal swa b specimens.ALL RESPIRATORY VIRAL PANEL Testing performed at [place], [place] [address]RESULTS HAVE BEEN CALLED TO THE [facility]Flu[facility] procedure less than one hour [id number] 01:25:00* Test Item Value Reference Range Interpretation Comments Coronavirus Type HKU1 (PCR) (test code = Coronavirus T ype HKU1 (PCR)) NOT DETECTED NOT DETECT [facility] HospitalFlu[facility] procedure less than one hour bdjnlmhm8184-33-03 01:25:00* Test Item Value Reference Range Interpretation Comments Coronavirus Type NL63 (PCR) (test code = Coronavirus T ype NL63 (PCR)) NOT DETECTED NOT DETECT [facility] HospitalFluoroscopic procedure less than one hour [id number] 01:25:00* Test Item Value Reference Range Interpretation Comments Coronavirus Type OC43 (PCR) (test code = Coronavirus T ype OC43 (PCR)) NOT DETECTED NOT DETECT [facility] pyogenes antigen detection in ouytit8259-58-10 01:25:00* Test Item Value Reference Range Interpretation Comments Group A Streptococcus Screen (test code = 54089-3) NEGATIVE NEG ATIVE [facility]
--- NOTE | 2020-01-24 09:09 | NUR ---
Orin tan in ED - 01/24/20 at 0924 by ADAM admin approval by MEGAN Regan @ [phone] Dr[address] Cece Soliman @ [phone] going to [address] [place] [address] [facility] [address] report fax [phone]
--- NOTE | 2020-01-24 09:11 | Emergency Department Note ---
History of Present Illnes History of Present Illness Chief Complaint: General Medicine Complaints History of Present Illness This is a 44 year old male [facility] with reports of a feeding tube that was removed by patient. EMS states that the patient does this frequently. VSS. No other complaints given at this time. 23F feeding tube was brought to the ER intact with EMS. Historian: [facility]S Arrival Mode: [facility] care EMS Onset (how long ago): hour(s) Radiation: Reports non-radiation Severity: mild Onset quality: sudden Timing of current episode: constant Chronicity: recurrent Context: Denies recent illness Relieving factors: none Exacerbating factors: none Associated symptoms: Reports denies other symptoms Past Medical/Family History Physician Review I have reviewed the patient's past medical and family history. Any updates have been documented here. Past Medical History Recent Fever: No Clinical Suspicion of Infectio: No New/Unexplained Change in Ment: No Past Medical History: Diabetes, Anemia, Anxiety, Other Mental Illness Other Medical History: CONSTIPATION ANOXIC BRAIN INJURY PNEUMONIA see penitentiary sheet for any further PMH ASPHYXIATION DUE TO HANGING DYSPHAGIA HYPOKALEMIA PREV ETOH ABUSE ANXIETY APHONIA Other Surgery: g-tube hx of tracheostomy Social History Smoking Cessation: Former smoker Counseling Performed: No Alcohol Use: None Any Illegal Drug Use: No TB Exposure/Symptoms: No Physically hurt or threatened: No Family History Family history of heart diseas: No Other Last Tetanus: UTD Any Pre-Existing Lines (PICC,: Yes Review of Systems Review of Systems Constitutional: Reports no symptoms EENTM: Reports no symptoms Cardiovascular: Reports no symptoms Respiratory: Reports no symptoms Gastrointestinal: Reports as per HPI Genitourinary: Reports no symptoms Musculoskeletal: Reports no symptoms Integumentary: Reports no symptoms Neurological: Reports no symptoms Psychological: Reports no symptoms Endocrine: Reports no symptoms Hematological/Lymphatic: Reports no symptoms Physical Exam Related Data Allergies: Coded Allergies: No Known Drug Allergies (Verified Allergy, Unknown, 08/13/19) Triage Vital Signs Vital Signs Date Time Temp Pulse Resp B/P (MAP) Pulse Ox O2 Delivery O2 Flow Rate FiO2 01/24/20 08:56 97.7 83 14 102/74 98 Room Air Vital signs reviewed: Yes Physical Exam CONSTITUTIONAL Constitutional: Present well-developed HENT HENT: Present normocephalic, Present atraumatic, Present oropharynx clear/moist, Present nose normal HENT L/R: Present left ext ear normal, Present right ext ear normal EYES Eyes: Reports PERRL, Reports conjunctivae normal NECK Neck: Present ROM normal PULMONARY Pulmonary: Present effort normal, Present breath sounds normal CARDIOVASCULAR Cardiovascular: Present regular rhythm, Present heart sounds normal, Present capillary refill normal, Present normal rate GASTROINTESTINAL Abdominal: Present soft, Present nontender, Present bowel sounds normal, Present other (G-TUBE STOMA WITHOUT G-TUBE PRESENT); Absent tender GENITOURINARY Genitourinary: Present exam deferred SKIN Skin: Present warm, Present dry MUSCULOSKELETAL Musculoskeletal: Present ROM normal NEUROLOGICAL Neurological: Present alert, Present oriented x 3, Present no gross motor or sensory deficits PSYCHOLOGICAL Psychological: Present mood/affect normal, Present judgement normal Results Imaging Imaging results reviewed: Yes Procedures Feeding Tube Replacement Type of tube: gastrostomy Prior insertion site: clean Tube used for reinsertion: Bard Tube size (F): 24 Balloon size (mL): 6 Verification of placement: auscultation, abdominal xray, gastrografin injection Tube secured by: tape/dressing Patient tolerated procedure: well Complications: unable to insert Assessment & Plan Medical Decision Making MDM PULLED OUT G-TUBE - WILL REPLACE AND DO GASTROGRAFFIN KUB Reassessment Reassessment DC BACK TO DC Assessment & Plan Final Impression: (1) PEG (percutaneous endoscopic gastrostomy) adjustment/replacement/removal Depart Disposition: HOME, SELF-CARE Last Vital Signs Date Time Temp Pulse Resp B/P (MAP) Pulse Ox O2 Delivery O2 Flow Rate FiO2 01/24/20 09:05 87 14 107/72 100 01/24/20 08:56 97.7 Room Air Home Meds Reported Medications [albuterol sulfate] No Conflict Check, 0.083 % INH Q4H PRN for SHORTNESS OF BREATH albuterol sulfate 2.5mg/3ml 3 ml via trach q4h prn sob 08/13/19 Ketoconazole (Nizoral A-D) 125 Ml Shampoo, 1 APPFUL TOP .wed apply to scalp every wed for dandruff 08/13/19 [keppra solution] No Conflict Check, 1000 MG PEG BID 08/13/19 Folic Acid (Folic Acid) 0.8 Mg Capsule, 1 TAB PEG HS 08/13/19 Potassium Bicarbonate/Cit Ac (EFFER-K 20 MEQ TABLET EFF) 20 Meq Tablet.eff, 20 MEQ PEG mon,thu,thu08/13/19 Carbamide Peroxide (DEBROX) 15 Ml Drops, 5 DROP EACH EAR thu and thu08/13/19 Clonazepam (CLONAZEPAM) 1 Mg Tablet, 1 MG PEG Q8H, TAB 08/13/19 Baclofen (BACLOFEN) 10 Mg Tablet, 30 MG PO Q8H, #90 TAB hold for sbp <110 08/13/19 Albuterol Sulfate (ALBUTEROL SULFATE) 2.5 Mg/3 Ml Vial.neb, 3 ML INH Q8H 08/13/19 Levalbuterol Hcl (XOPENEX) 0.63 Mg/3 Ml Vial.neb, 1 INH INH Q8H PRN for SHORTNESS OF BREATH 08/13/19 Acetaminophen (ACETAMINOPHEN) 325 Mg Tablet, 650 MG PO Q4H PRN for ELEVATED TEMPERATURE for 5 Days, TAB 08/13/19 Thiamine HCl (B-1) 100 Mg Tablet, 100 MG PEG DAILY 08/13/19 Sennosides (SENNA LAXATIVE) 8.6 Mg Tablet, 1 TAB PEG DAILY 08/13/19 Scopolamine (Scopolamine) 1 Each Patch.td.3, 1 PATCH TOP Q72H 08/13/19 Polyethylene Glycol 3350 (POLYETHYLENE GLYCOL 3350) 17 Gm Powd.pack, 17 GM PO DAILY, PACKET 08/13/19 Multivitamin With Minerals (MULTIPLE VITAMIN) 1 Each Tablet, 1 TAB PEG DAILY 08/13/19 JOSE FROST MD Jan 24, 2020 09:11
[2020-01-24] MEDS ORDERED: DIATRIZOATE MEGL/DIATRIZOA SOD 30 ML BTL PO ONE (09:27)
--- NOTE | 2020-01-24 09:57 | Diagnostic Imaging Report ---
Abdomen, one view (KUB) INDICATION: ^REPLACED G-TUBE ^[id number] ^09 Comparison: None available. Discussion: Gastrografin was injected via the indwelling gastrostomy catheter prior to imaging. A integration analyst image was not obtained. Gastrostomy tube is noted with contrast injection via the indwelling tube. Contrast is noted within the gastric fundus outlining the gastric folds. No extraluminal contrast is identified. Visualized bowel loops are not dilated. Large amount of stool is noted projecting over the rectum concerning for constipation/impaction. Negative for acute osseous abnormality. IMPRESSION: Intragastric position of the gastrostomy catheter with opacification of the gastric fundus. Large amount of stool is noted at the level of the rectum concerning for constipation/impaction. Signed by: Sean Brooks MD on 01/24/2020 9:53 AM
--- NOTE | 2020-01-24 10:55 | NUR ---
called [facility] for eta update...."ten mins out."
== END 2020-01-24 11:16 ==
LOC: ER 08:51
DX: Z43.1 Encounter for attention to gastrostomy (principal); E11.9 Type 2 diabetes mellitus without complications; G93.1 Anoxic brain damage, not elsewhere classified; L89.151 Pressure ulcer of sacral region, stage 1; R49.1 Aphonia; F41.9 Anxiety disorder, unspecified; D64.9 Anemia, unspecified; Z87.820 Personal history of traumatic brain injury; Z91.5 Personal history of self-harm
CPT/HCPCS: 74018; 99284

== ENCOUNTER 2020-02-02 18:36 | Emergency (ER) | payer MEDICARE, OTHER ==
[~2020-02-02] VITALS: Ht 167.6 cm; Wt 59.0 kg
--- NOTE | 2020-02-02 18:45 | Emergency Department Note ---
History of Present Illnes History of Present Illness History of Present Illness This is a 44 year old male presents to the ED for evaluation of G-tube removal. 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 Arrival Mode: [place] Onset (how long ago): second(s) Radiation: Reports non-radiation Severity: mild Onset quality: sudden Duration (how long): hour(s) Timing of current episode: constant Progression: unchanged Chronicity: recurrent Context: Denies recent illness, Denies recent surgery, Denies recent immobilization, Denies recent travel, Denies trauma/injury, Denies new medications, Denies hx of DVT/PE, Denies non-compliance w/ medications, Denies other Relieving factors: none Exacerbating factors: none Associated symptoms: Reports denies other symptoms Past Medical/Family History Physician Review I have reviewed the patient's past medical and family history. Any updates have been documented here. Past Medical History Recent Fever: No Clinical Suspicion of Infectio: No New/Unexplained Change in Ment: No Other Medical History: Cerebellar pathology Other Surgery: feeding tube Social History Smoking Cessation: Never Smoker Alcohol Use: None Any Illegal Drug Use: No Review of Systems Review of Systems Constitutional: Reports no symptoms EENTM: Reports no symptoms Cardiovascular: Reports no symptoms Respiratory: Reports no symptoms Gastrointestinal: Reports no symptoms Genitourinary: Reports no symptoms Musculoskeletal: Reports no symptoms Integumentary: Reports no symptoms Neurological: Reports no symptoms Psychological: Reports no symptoms Endocrine: Reports no symptoms Hematological/Lymphatic: Reports no symptoms Physical Exam Related Data Allergies: Coded Allergies: No Known Drug Allergies (Verified Allergy, Unknown, 08/13/19) Physical Exam CONSTITUTIONAL Constitutional: Present cachectic HENT HENT: Present normocephalic, Present atraumatic, Present oropharynx clear/moist, Present nose normal HENT L/R: Present left ext ear normal, Present right ext ear normal EYES Eyes: Reports PERRL, Reports conjunctivae normal NECK Neck: Present ROM normal PULMONARY Pulmonary: Present effort normal, Present breath sounds normal CARDIOVASCULAR Cardiovascular: Present regular rhythm, Present heart sounds normal, Present capillary refill normal, Present normal rate GASTROINTESTINAL Abdominal: Present soft, Present nontender, Present bowel sounds normal GENITOURINARY Genitourinary: Present exam deferred SKIN Skin: Present warm, Present dry MUSCULOSKELETAL Musculoskeletal: Present ROM normal NEUROLOGICAL Neurological: Present alert PSYCHOLOGICAL Psychological: Present mood/affect normal, Present judgement normal Procedures Feeding Tube Replacement Type of tube: gastrostomy Prior insertion site: tender Tube size (F): 20 Balloon size (mL): 6 Patient tolerated procedure: well Assessment & Plan Medical Decision Making MDM replaced PEG tube Assessment & Plan Final Impression: (1) PEG (percutaneous endoscopic gastrostomy) adjustment/replacement/removal Depart Disposition: TRANSFER PENITENTIARY Home Meds Reported Medications [albuterol sulfate] No Conflict Check, 0.083 % INH Q4H PRN for SHORTNESS OF BREATH albuterol sulfate 2.5mg/3ml 3 ml via trach q4h prn sob 08/13/19 Ketoconazole (Nizoral A-D) 125 Ml Shampoo, 1 APPFUL TOP .wed apply to scalp every thu for dandruff 08/13/19 [keppra solution] No Conflict Check, 1000 MG PEG BID 08/13/19 Folic Acid (Folic Acid) 0.8 Mg Capsule, 1 TAB PEG HS 08/13/19 Potassium Bicarbonate/Cit Ac (EFFER-K 20 MEQ TABLET EFF) 20 Meq Tablet.eff, 20 MEQ PEG mon,thu,thu08/13/19 Carbamide Peroxide (DEBROX) 15 Ml Drops, 5 DROP EACH EAR thu and thu08/13/19 Clonazepam (CLONAZEPAM) 1 Mg Tablet, 1 MG PEG Q8H, TAB 08/13/19 Baclofen (BACLOFEN) 10 Mg Tablet, 30 MG PO Q8H, #90 TAB hold for sbp <110 08/13/19 Albuterol Sulfate (ALBUTEROL SULFATE) 2.5 Mg/3 Ml Vial.neb, 3 ML INH Q8H 08/13/19 Levalbuterol Hcl (XOPENEX) 0.63 Mg/3 Ml Vial.neb, 1 INH INH Q8H PRN for SHORTNESS OF BREATH 08/13/19 Acetaminophen (ACETAMINOPHEN) 325 Mg Tablet, 650 MG PO Q4H PRN for ELEVATED TEMPERATURE for 5 Days, TAB 08/13/19 Thiamine HCl (B-1) 100 Mg Tablet, 100 MG PEG DAILY 08/13/19 Sennosides (SENNA LAXATIVE) 8.6 Mg Tablet, 1 TAB PEG DAILY 08/13/19 Scopolamine (Scopolamine) 1 Each Patch.td.3, 1 PATCH TOP Q72H 08/13/19 Polyethylene Glycol 3350 (POLYETHYLENE GLYCOL 3350) 17 Gm Powd.pack, 17 GM PO DAILY, PACKET 08/13/19 Multivitamin With Minerals (MULTIPLE VITAMIN) 1 Each Tablet, 1 TAB PEG DAILY 08/13/19 MICHAEL STEIN DO Feb 02, 2020 18:45
[2020-02-02 19:06] VITALS: BP 104/70
== END 2020-02-02 19:12 | disposition short-term general hospital (02) ==
LOC: ER 18:45
DX: Z43.1 Encounter for attention to gastrostomy (principal); L89.152 Pressure ulcer of sacral region, stage 2; E11.9 Type 2 diabetes mellitus without complications; R49.1 Aphonia; D64.9 Anemia, unspecified; F41.9 Anxiety disorder, unspecified; Z87.820 Personal history of traumatic brain injury; Z91.5 Personal history of self-harm
CPT/HCPCS: 99282

== ENCOUNTER 2020-03-10 07:07 | Emergency (ER) | payer MEDICARE, OTHER ==
[~2020-03-10] VITALS: Ht 167.6 cm; Wt 59.0 kg
--- NOTE | 2020-03-10 07:32 | NUR ---
[facility] called to request patient transport back to [facility], ETA 30-45 mins
[2020-03-10] MEDS ORDERED: DIATRIZOATE MEGL/DIATRIZOA SOD 30 ML BTL PO ONE (07:37)
--- NOTE | 2020-03-10 08:14 | Diagnostic Imaging Report ---
EXAM: Abdomen Radiograph 1 View(s) INDICATION: W/ GASTRO, G-TUBE REPLACEMENT COMPARISON: Multiple prior x-rays including most recent on 01/24/2020. FINDINGS: There is a gastrotomy tube in place. Contrast is noted in the entire stomach and proximal duodenum. No extraluminal contrast identified. Drops of contrast projecting over the left lower quadrant and pelvis is likely external to the patient. Nonobstructive bowel gas pattern. Small stool burden throughout the colon. No evidence of pneumoperitoneum. IMPRESSION: 1. Intragastric positioning of gastrostomy tube with opacification of the entire stomach and proximal duodenum. 2. Nonobstructive bowel gas pattern. Signed by: Sterling Ventura MD on 03/10/2020 8:11 AM
--- NOTE | 2020-03-10 08:39 | Emergency Department Note ---
History of Present Illnes History of Present Illness Chief Complaint: Abdominal Complaints History of Present Illness This is a 44 year old male pt came in via EMS from [facility] for c/o dislodged PEG Tube, onset unknown, 20 FR Peg Tube was in place, pt is non verbal from a previous anoxic brain injury. 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 Any updates have been documented here. Past Medical History Recent Fever: No Clinical Suspicion of Infectio: No New/Unexplained Change in Ment: No Past Medical History: Diabetes, Anemia, Anxiety, Other Mental Illness Other Medical History: Cerebellar pathology h/o failed suicide attempt with resultant anoxic brain injury Other Surgery: feeding tube Social History Smoking Cessation: Former smoker Counseling Performed: No Alcohol Use: None Any Illegal Drug Use: No Physically hurt or threatened: No Family History Family history of heart diseas: No Other Last Tetanus: UTD Any Pre-Existing Lines (PICC,: No Review of Systems ROS Narrative Unable to obtain ROS: Unable to obtain due to, altered mental status Review of Systems Constitutional: Reports no symptoms EENTM: Reports no symptoms Cardiovascular: Reports no symptoms Respiratory: Reports no symptoms Gastrointestinal: Reports as per HPI, Reports other (g-tube out) Genitourinary: Reports no symptoms Musculoskeletal: Reports no symptoms Integumentary: Reports no symptoms Neurological: Reports no symptoms Psychological: Reports no symptoms Endocrine: Reports no symptoms Hematological/Lymphatic: Reports no symptoms Review of other systems: All other systems negative Physical Exam Related Data Allergies: Coded Allergies: No Known Drug Allergies (Verified Allergy, Unknown, 08/13/19) Triage Vital Signs Vital Signs Date Time Temp Pulse Resp B/P (MAP) Pulse Ox O2 Delivery O2 Flow Rate FiO2 03/10/20 07:13 98.3 87 18 127/63 97 Room Air Vital signs reviewed: Yes Physical Exam CONSTITUTIONAL Constitutional: Present well-developed, Present well-nourished HENT HENT: Present normocephalic, Present atraumatic, Present oropharynx clear/moist, Present nose normal HENT L/R: Present left ext ear normal, Present right ext ear normal EYES Eyes: Reports PERRL, Reports conjunctivae normal NECK Neck: Present ROM normal PULMONARY Pulmonary: Present effort normal, Present breath sounds normal CARDIOVASCULAR Cardiovascular: Present regular rhythm, Present heart sounds normal, Present capillary refill normal, Present normal rate GASTROINTESTINAL Abdominal: Present soft, Present nontender, Present bowel sounds normal, Present other (g-tube stoma) GENITOURINARY Genitourinary: Present exam deferred SKIN Skin: Present warm, Present dry MUSCULOSKELETAL Musculoskeletal: Present ROM normal NEUROLOGICAL Neurological: Present alert, Present other (unintelligible speech) PSYCHOLOGICAL Results Imaging Imaging results reviewed: Yes Impressions EXAM: Abdomen Radiograph 1 View(s) INDICATION: W/ GASTRO, G-TUBE REPLACEMENT COMPARISON: Multiple prior x-rays including most recent on 01/24/2020. FINDINGS: There is a gastrotomy tube in place. Contrast is noted in the entire stomach and proximal duodenum. No extraluminal contrast identified. Drops of contrast projecting over the left lower quadrant and pelvis is likely external to the patient. Nonobstructive bowel gas pattern. Small stool burden throughout the colon. No evidence of pneumoperitoneum. IMPRESSION: 1. Intragastric positioning of gastrostomy tube with opacification of the entire stomach and proximal duodenum. 2. Nonobstructive bowel gas pattern. Signed by: Sterling Ventura MD on 03/10/2020 8:11 AM Procedures Feeding Tube Replacement Type of tube: gastrostomy Prior insertion site: clean Tube used for reinsertion: other ([employer] EndoVive 20Fr) Tube size (F): 20 Balloon size (mL): 6 Verification of placement: gastrografin injection Tube secured by: tape/dressing Patient tolerated procedure: no complications Assessment & Plan Medical Decision Making MDM here from [facility] for G-tube came out - will replace and check w/ gastrografin KUB Reassessment Reassessment good placement - DC back to [facility] Assessment & Plan Final Impression: (1) Encounter for care related to feeding tube Depart Disposition: HOME, SELF-CARE Last Vital Signs Date Time Temp Pulse Resp B/P (MAP) Pulse Ox O2 Delivery O2 Flow Rate FiO2 03/10/20 07:13 98.3 87 18 127/63 97 Room Air Home Meds Reported Medications [albuterol sulfate] No Conflict Check, 0.083 % INH Q4H PRN for SHORTNESS OF BREATH albuterol sulfate 2.5mg/3ml 3 ml via trach q4h prn sob 08/13/19 Ketoconazole (Nizoral A-D) 125 Ml Shampoo, 1 APPFUL TOP .wed apply to scalp every thu for dandruff 08/13/19 [keppra solution] No Conflict Check, 1000 MG PEG BID 08/13/19 Folic Acid (Folic Acid) 0.8 Mg Capsule, 1 TAB PEG HS 08/13/19 Potassium Bicarbonate/Cit Ac (EFFER-K 20 MEQ TABLET EFF) 20 Meq Tablet.eff, 20 MEQ PEG mon,thu,thu08/13/19 Carbamide Peroxide (DEBROX) 15 Ml Drops, 5 DROP EACH EAR thu and thu08/13/19 Clonazepam (CLONAZEPAM) 1 Mg Tablet, 1 MG PEG Q8H, TAB 08/13/19 Baclofen (BACLOFEN) 10 Mg Tablet, 30 MG PO Q8H, #90 TAB hold for sbp <110 08/13/19 Albuterol Sulfate (ALBUTEROL SULFATE) 2.5 Mg/3 Ml Vial.neb, 3 ML INH Q8H 08/13/19 Levalbuterol Hcl (XOPENEX) 0.63 Mg/3 Ml Vial.neb, 1 INH INH Q8H PRN for SHORTNESS OF BREATH 08/13/19 Acetaminophen (ACETAMINOPHEN) 325 Mg Tablet, 650 MG PO Q4H PRN for ELEVATED TEMPERATURE for 5 Days, TAB 08/13/19 Thiamine HCl (B-1) 100 Mg Tablet, 100 MG PEG DAILY 08/13/19 Sennosides (SENNA LAXATIVE) 8.6 Mg Tablet, 1 TAB PEG DAILY 08/13/19 Scopolamine (Scopolamine) 1 Each Patch.td.3, 1 PATCH TOP Q72H 08/13/19 Polyethylene Glycol 3350 (POLYETHYLENE GLYCOL 3350) 17 Gm Powd.pack, 17 GM PO DAILY, PACKET 08/13/19 Multivitamin With Minerals (MULTIPLE VITAMIN) 1 Each Tablet, 1 TAB PEG DAILY 08/13/19 Medications in the ED Diatrizoate Meglum/ Diatrizoate Sod 30 ml STK-MED ONCE PO ; Start 03/10/20 at 07:37; Stop 03/10/20 at 07:30; Status DC JOSE FROST MD Mar 10, 2020 08:39
[2020-03-10 08:40] VITALS: BP 125/75
--- NOTE | 2020-03-10 08:42 | NUR ---
Pt is AAOX2, no distress noted, PEG Tube replaced and placement confirmed by XRay, vital signs WNL
== END 2020-03-10 08:47 | disposition home or self-care (01) ==
LOC: ER 07:14
DX: Z43.1 Encounter for attention to gastrostomy (principal); E11.9 Type 2 diabetes mellitus without complications; D64.9 Anemia, unspecified; F41.9 Anxiety disorder, unspecified; Z87.820 Personal history of traumatic brain injury; Z91.5 Personal history of self-harm
CPT/HCPCS: 74018; 99284

== ENCOUNTER 2020-03-10 20:00 | Emergency (ER) | payer MEDICARE, OTHER ==
[~2020-03-10] VITALS: Ht 167.6 cm; Wt 59.0 kg
--- NOTE | 2020-03-10 20:03 | NUR ---
18fr peg tube replaced by md. placement verified by aspiration of gastric contents. tube secured c 4x4 gauze and foam tape.
--- NOTE | 2020-03-10 20:23 | Emergency Department Note ---
History of Present Illnes History of Present Illness Chief Complaint: Abdominal Complaints History of Present Illness This is a 44 year old male PRESENTS TO ED WITH DISLODGED GTUBE FROM [facility], PT SEEN AT THIS FACILITY THIS AM FOR SAME STATED C/C; PT WITH NAD NOTED . 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 Any updates have been documented here. Past Medical History Recent Fever: No Clinical Suspicion of Infectio: No New/Unexplained Change in Ment: No Past Medical History: Diabetes, Anemia, Anxiety, Other Mental Illness Other Medical History: Cerebellar pathology h/o failed suicide attempt with resultant anoxic brain injury Other Surgery: feeding tube Social History Smoking Cessation: Never Smoker Alcohol Use: None Any Illegal Drug Use: No Other Last Tetanus: UTD Review of Systems Review of Systems Constitutional: Reports no symptoms EENTM: Reports no symptoms Cardiovascular: Reports no symptoms Respiratory: Reports no symptoms Gastrointestinal: Reports as per HPI Genitourinary: Reports no symptoms Musculoskeletal: Reports no symptoms Integumentary: Reports no symptoms Neurological: Reports no symptoms Psychological: Reports no symptoms Endocrine: Reports no symptoms Hematological/Lymphatic: Reports no symptoms Physical Exam Related Data Allergies: Coded Allergies: No Known Drug Allergies (Verified Allergy, Unknown, 08/13/19) Triage Vital Signs Vital Signs Date Time Temp Pulse Resp B/P (MAP) Pulse Ox O2 Delivery O2 Flow Rate FiO2 03/10/20 20:01 98.1 92 17 102/71 99 Room Air Vital signs reviewed: Yes Physical Exam CONSTITUTIONAL Constitutional: Present well-developed, Present well-nourished; Absent distressed HENT HENT: Present normocephalic, Present atraumatic, Present oropharynx clear/mo ist, Present nose normal HENT L/R: Present left ext ear normal, Present right ext ear normal EYES Eyes: Reports PERRL, Reports conjunctivae normal NECK Neck: Present ROM normal PULMONARY Pulmonary: Present effort normal, Present breath sounds normal CARDIOVASCULAR Cardiovascular: Present regular rhythm, Present heart sounds normal, Present capillary refill normal, Present normal rate GASTROINTESTINAL Abdominal: Present soft, Present nontender, Present bowel sounds normal, Present other (stoma for peg tube present) GENITOURINARY Genitourinary: Present exam deferred SKIN Skin: Present warm, Present dry MUSCULOSKELETAL Musculoskeletal: Present ROM normal NEUROLOGICAL Neurological: Present alert, Present other (oriented to person and place, contracted all extremties) PSYCHOLOGICAL Psychological: Present mood/affect normal, Present judgement normal Procedures Feeding Tube Replacement Type of tube: gastrostomy Prior insertion site: clean Tube used for reinsertion: other (18 frech g tube) Tube size (F): 18 Balloon size (mL): 5 Verification of placement: auscultation, other (aspiration of gastric contents) Tube secured by: tape/dressing Patient tolerated procedure: well Assessment & Plan Medical Decision Making MDM pt with pulled out g tube g tube inserted by me, see procedure note Assessment & Plan Final Impression: (1) PEG (percutaneous endoscopic gastrostomy) adjustment/replacement/removal Depart Disposition: DIS TO RESIDENTIAL BED Last Vital Signs Date Time Temp Pulse Resp B/P (MAP) Pulse Ox O2 Delivery O2 Flow Rate FiO2 03/10/20 20:01 98.1 92 17 102/71 99 Room Air Home Meds Reported Medications [albuterol sulfate] No Conflict Check, 0.083 % INH Q4H PRN for SHORTNESS OF BREATH albuterol sulfate 2.5mg/3ml 3 ml via trach q4h prn sob 08/13/19 Ketoconazole (Nizoral A-D) 125 Ml Shampoo, 1 APPFUL TOP .wed apply to scalp every thu for dandruff 08/13/19 [keppra solution] No Conflict Check, 1000 MG PEG BID 08/13/19 Folic Acid (Folic Acid) 0.8 Mg Capsule, 1 TAB PEG HS 08/13/19 Potassium Bicarbonate/Cit Ac (EFFER-K 20 MEQ TABLET EFF) 20 Meq Tablet.eff, 20 MEQ PEG mon,wed,thu08/13/19 Carbamide Peroxide (DEBROX) 15 Ml Drops, 5 DROP EACH EAR mon and thu08/13/19 Clonazepam (CLONAZEPAM) 1 Mg Tablet, 1 MG PEG Q8H, TAB 08/13/19 Baclofen (BACLOFEN) 10 Mg Tablet, 30 MG PO Q8H, #90 TAB hold for sbp <110 08/13/19 Albuterol Sulfate (ALBUTEROL SULFATE) 2.5 Mg/3 Ml Vial.neb, 3 ML INH Q8H 08/13/19 Levalbuterol Hcl (XOPENEX) 0.63 Mg/3 Ml Vial.neb, 1 INH INH Q8H PRN for SHORTNESS OF BREATH 08/13/19 Acetaminophen (ACETAMINOPHEN) 325 Mg Tablet, 650 MG PO Q4H PRN for ELEVATED TEMPERATURE for 5 Days, TAB 08/13/19 Thiamine HCl (B-1) 100 Mg Tablet, 100 MG PEG DAILY 08/13/19 Sennosides (SENNA LAXATIVE) 8.6 Mg Tablet, 1 TAB PEG DAILY 08/13/19 Scopolamine (Scopolamine) 1 Each Patch.td.3, 1 PATCH TOP Q72H 08/13/19 Polyethylene Glycol 3350 (POLYETHYLENE GLYCOL 3350) 17 Gm Powd.pack, 17 GM PO DAILY, PACKET 08/13/19 Multivitamin With Minerals (MULTIPLE VITAMIN) 1 Each Tablet, 1 TAB PEG DAILY 08/13/19 KAY PHILIPPE MD Mar 10, 2020 20:23
--- NOTE | 2020-03-10 20:32 | NUR ---
report called to remigio at [facility]. pt transporting back to [place] via ambulance.
== END 2020-03-10 20:35 ==
LOC: ER 20:15
DX: Z43.1 Encounter for attention to gastrostomy (principal); F41.9 Anxiety disorder, unspecified; Z87.820 Personal history of traumatic brain injury; Z91.5 Personal history of self-harm
CPT/HCPCS: 99283

== ENCOUNTER 2020-03-11 21:12 | Emergency (ER) | payer MEDICARE, OTHER ==
[~2020-03-11] VITALS: Ht 167.6 cm; Wt 59.0 kg
== END 2020-03-11 21:40 | disposition home or self-care (01) ==
LOC: ER 21:31
DX: Z43.1 Encounter for attention to gastrostomy (principal); R09.02 Hypoxemia; E11.9 Type 2 diabetes mellitus without complications; Z87.820 Personal history of traumatic brain injury; Z91.5 Personal history of self-harm
CPT/HCPCS: 99283

== ENCOUNTER 2020-03-15 07:48 | Emergency (ER) | payer MEDICARE, OTHER ==
[~2020-03-15] VITALS: Ht 170.2 cm; Wt 54.4 kg
== END 2020-03-15 08:05 | disposition home or self-care (01) ==
LOC: ER 07:58
DX: Z43.1 Encounter for attention to gastrostomy (principal); G93.1 Anoxic brain damage, not elsewhere classified; E11.9 Type 2 diabetes mellitus without complications; D64.9 Anemia, unspecified; F41.9 Anxiety disorder, unspecified; Z87.820 Personal history of traumatic brain injury; Z91.5 Personal history of self-harm
CPT/HCPCS: 99284

== ENCOUNTER 2020-03-28 07:32 | Emergency (ER) | payer MEDICARE, OTHER ==
[~2020-03-28] VITALS: Ht 162.6 cm; Wt 61.2 kg
--- NOTE | 2020-03-28 07:46 | Emergency Department Note ---
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 Arrival Mode: [facility] Leno Sewer Required: No Onset (how long ago): hour(s) Location: Stomach Quality: Peg tub dislodged Radiation: Reports non-radiation Severity: mild Onset quality: sudden Duration (how long): hour(s) Timing of current episode: constant Progression: unchanged Chronicity: recurrent Context: Denies recent illness, Denies recent surgery Relieving factors: none Exacerbating factors: none Associated symptoms: Reports denies other symptoms Treatments prior to arrival: none Past Medical/Family History Physician Review I have reviewed the patient's past medical and family history. Any updates have been documented here. Past Medical History Recent Fever: No Clinical Suspicion of Infectio: No New/Unexplained Change in Ment: No Past Medical History: Diabetes, Anemia, Anxiety, Other Mental Illness Other Medical History: Cerebellar pathology h/o failed suicide attempt with resultant anoxic brain injury Other Surgery: feeding tube Other Last Tetanus: UTD Review of Systems Review of Systems Constitutional: Reports no symptoms EENTM: Reports no symptoms Cardiovascular: Reports no symptoms Respiratory: Reports no symptoms Gastrointestinal: Reports as per HPI Genitourinary: Reports no symptoms Musculoskeletal: Reports no symptoms Integumentary: Reports no symptoms Neurological: Reports no symptoms Psychological: Reports no symptoms Endocrine: Reports no symptoms Hematological/Lymphatic: Reports no symptoms Physical Exam Related Data Allergies: Coded Allergies: No Known Drug Allergies (Verified Allergy, Unknown, 08/13/19) Triage Vital Signs Vital Signs Date Time Temp Pulse Resp B/P (MAP) Pulse Ox O2 Delivery O2 Flow Rate FiO2 03/28/20 07:35 98.1 86 18 118/62 98 Room Air Vital signs reviewed: Yes Physical Exam CONSTITUTIONAL Constitutional: Present well-developed, Present well-nourished HENT HENT: Present normocephalic, Present atraumatic, Present oropharynx clear/moist, Present nose normal HENT L/R: Present left ext ear normal, Present right ext ear normal EYES Eyes: Reports PERRL, Reports conjunctivae normal NECK Neck: Present ROM normal PULMONARY Pulmonary: Present effort normal, Present breath sounds normal CARDIOVASCULAR Cardiovascular: Present regular rhythm, Present heart sounds normal, Present capillary refill normal, Present normal rate GASTROINTESTINAL Abdominal: Present soft, Present nontender, Present bowel sounds normal, Present other (PEG tube site intact, no erythema or drainage) GENITOURINARY Genitourinary: Present exam deferred SKIN Skin: Present warm, Present dry MUSCULOSKELETAL Musculoskeletal: Present ROM normal NEUROLOGICAL Neurological: Present alert, Present no gross motor or sensory deficits; Absent oriented x 3 PSYCHOLOGICAL Psychological: Present mood/affect normal, Present judgement normal Procedures Procedures Procedure: PEG tube replacement. 20Fr PEG tube replaced, confirmed with auscultation and return of gastric contents. Balloon inflated with air as is usual for him Assessment & Plan Medical Decision Making MDM 44 y.o M presents for PEG tube dislodgement. PEG tube placed years ago. Replaced as noted in above procedure note. No complications. Will DC back to [facility]. Assessment & Plan Final Impression: (1) PEG (percutaneous endoscopic gastrostomy) adjustment/replacement/removal Depart Disposition: TRANSFER LONGTERM Last Vital Signs Date Time Temp Pulse Resp B/P (MAP) Pulse Ox O2 Delivery O2 Flow Rate FiO2 03/28/20 07:35 98.1 86 18 118/62 98 Room Air Home Meds Reported Medications [albuterol sulfate] No Conflict Check, 0.083 % INH Q4H PRN for SHORTNESS OF BREATH albuterol sulfate 2.5mg/3ml 3 ml via trach q4h prn sob 08/13/19 Ketoconazole (Nizoral A-D) 125 Ml Shampoo, 1 APPFUL TOP .wed apply to scalp every thu for dandruff 08/13/19 [keppra solution] No Conflict Check, 1000 MG PEG BID 08/13/19 Folic Acid (Folic Acid) 0.8 Mg Capsule, 1 TAB PEG HS 08/13/19 Potassium Bicarbonate/Cit Ac (EFFER-K 20 MEQ TABLET EFF) 20 Meq Tablet.eff, 20 MEQ PEG mon,thu,thu08/13/19 Carbamide Peroxide (DEBROX) 15 Ml Drops, 5 DROP EACH EAR mon and thu08/13/19 Clonazepam (CLONAZEPAM) 1 Mg Tablet, 1 MG PEG Q8H, TAB 08/13/19 Baclofen (BACLOFEN) 10 Mg Tablet, 30 MG PO Q8H, #90 TAB hold for sbp <110 08/13/19 Albuterol Sulfate (ALBUTEROL SULFATE) 2.5 Mg/3 Ml Vial.neb, 3 ML INH Q8H 08/13/19 Levalbuterol Hcl (XOPENEX) 0.63 Mg/3 Ml Vial.neb, 1 INH INH Q8H PRN for SHORT NESS OF BREATH 08/13/19 Acetaminophen (ACETAMINOPHEN) 325 Mg Tablet, 650 MG PO Q4H PRN for ELEVATED TEMPERATURE for 5 Days, TAB 08/13/19 Thiamine HCl (B-1) 100 Mg Tablet, 100 MG PEG DAILY 08/13/19 Sennosides (SENNA LAXATIVE) 8.6 Mg Tablet, 1 TAB PEG DAILY 08/13/19 Scopolamine (Scopolamine) 1 Each Patch.td.3, 1 PATCH TOP Q72H 08/13/19 Polyethylene Glycol 3350 (POLYETHYLENE GLYCOL 3350) 17 Gm Powd.pack, 17 GM PO DAILY, PACKET 08/13/19 Multivitamin With Minerals (MULTIPLE VITAMIN) 1 Each Tablet, 1 TAB PEG DAILY 08/13/19 RACHEL TORRES MD Mar 28, 2020 07:46
== END 2020-03-28 08:00 ==
LOC: ER 07:41
DX: Z43.1 Encounter for attention to gastrostomy (principal); G93.1 Anoxic brain damage, not elsewhere classified; E11.9 Type 2 diabetes mellitus without complications; D64.9 Anemia, unspecified; F41.9 Anxiety disorder, unspecified; Z87.820 Personal history of traumatic brain injury; Z91.5 Personal history of self-harm
CPT/HCPCS: 99282

== ENCOUNTER 2020-03-28 20:54 | Emergency (ER) | payer MEDICARE, OTHER ==
[~2020-03-28] VITALS: Ht 162.6 cm; Wt 61.2 kg
--- NOTE | 2020-03-28 20:59 | NUR ---
18 fr peg tube replaced by md. placement verified by aspiration of gastric contents. Addendum: 03/28/20 at 2138 by ANGIE 22 fr peg tube replaced by md. placement verified by aspiration of gastric contents.
--- NOTE | 2020-03-28 21:10 | Emergency Department Note ---
History of Present Illnes History of Present Illness Chief Complaint: Abdominal Complaints History of Present Illness This is a 44 year old male 44 Y/O MALE PT PRESENTS TO ED WITH REPORT OF DISLODGED G-TUBE; PTS V/S/S; NAD PT WITH MULTIPLE VISITS TO THIS ER FOR SAME. 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 Any updates have been documented here. Past Medical History Recent Fever: No Clinical Suspicion of Infectio: No New/Unexplained Change in Ment: No Past Medical History: Diabetes, Anemia, Anxiety, Other Mental Illness Other Medical History: Cerebellar pathology h/o failed suicide attempt with resultant anoxic brain injury Other Surgery: feeding tube Social History Smoking Cessation: Never Smoker Counseling Performed: No Alcohol Use: None Any Illegal Drug Use: No Physically hurt or threatened: No Other Last Tetanus: UTD Any Pre-Existing Lines (PICC,: No Review of Systems Review of Systems Constitutional: Reports no symptoms EENTM: Reports no symptoms Cardiovascular: Reports no symptoms Respiratory: Reports no symptoms Gastrointestinal: Reports as per HPI Genitourinary: Reports no symptoms Musculoskeletal: Reports no symptoms Integumentary: Reports no symptoms Neurological: Reports no symptoms Psychological: Reports no symptoms Endocrine: Reports no symptoms Hematological/Lymphatic: Reports no symptoms Physical Exam Related Data Allergies: Coded Allergies: No Known Drug Allergies (Verified Allergy, Unknown, 08/13/19) Triage Vital Signs Vital Signs Date Time Temp Pulse Resp B/P (MAP) Pulse Ox O2 Delivery O2 Flow Rate FiO2 03/28/20 20:56 98.5 81 17 107/80 97 Room Air Vital signs reviewed: Yes Physical Exam CONSTITUTIONAL Constitutional: Present well-developed, Present well-nourished; Absent distressed HENT HENT: Present normocephalic, Present atraumatic, Present oropharynx clear/moist, Present nose normal HENT L/R: Present left ext ear normal, Present right ext ear normal EYES Eyes: Reports PERRL, Reports conjunctivae normal NECK Neck: Present ROM normal PULMONARY Pulmonary: Present effort normal, Present breath sounds normal CARDIOVASCULAR Cardiovascular: Present regular rhythm, Present heart sounds normal, Present capillary refill normal, Present normal rate GASTROINTESTINAL Abdominal: Present soft, Present nontender, Present bowel sounds normal, Present other (G TUBE STOMA PRESENT, NO SIGN OF INFECTION) GENITOURINARY Genitourinary: Present exam deferred SKIN Skin: Present warm, Present dry MUSCULOSKELETAL Musculoskeletal: Present ROM normal NEUROLOGICAL Neurological: Present alert, Present oriented x 3, Present no gross motor or sensory deficits PSYCHOLOGICAL Psychological: Present mood/affect normal, Present judgement normal Procedures Feeding Tube Replacement Type of tube: gastrostomy Prior insertion site: clean Tube used for reinsertion: other (G TUBE) Tube size (F): 22 Balloon size (mL): 5 Verification of placement: auscultation, other (RETURN OF GASGTRIC CONTENTS) Tube secured by: tape/dressing Patient tolerated procedure: well Assessment & Plan Medical Decision Making MDM PT WITH DISLODGED G TUBE SEE PROCEDURE NOTE Assessment & Plan Final Impression: (1) PEG (percutaneous endoscopic gastrostomy) adjustment/replacement/removal Depart Disposition: DIS TO LONG-TERM BED Last Vital Signs Date Time Temp Pulse Resp B/P (MAP) Pulse Ox O2 Delivery O2 Flow Rate FiO2 03/28/20 20:56 98.5 81 17 107/80 97 Room Air Home Meds Reported Medications [albuterol sulfate] No Conflict Check, 0.083 % INH Q4H PRN for SHORTNESS OF BREATH albuterol sulfate 2.5mg/3ml 3 ml via trach q4h prn sob 08/13/19 Ketoconazole (Nizoral A-D) 125 Ml Shampoo, 1 APPFUL TOP .wed apply to scalp every thu for dandruff 08/13/19 [keppra solution] No Conflict Check, 1000 MG PEG BID 08/13/19 Folic Acid (Folic Acid) 0.8 Mg Capsule, 1 TAB PEG HS 08/13/19 Potassium Bicarbonate/Cit Ac (EFFER-K 20 MEQ TABLET EFF) 20 Meq Tablet.eff, 20 MEQ PEG mon,wed,thu08/13/19 Carbamide Peroxide (DEBROX) 15 Ml Drops, 5 DROP EACH EAR mon and thu08/13/19 Clonazepam (CLONAZEPAM) 1 Mg Tablet, 1 MG PEG Q8H, TAB 08/13/19 Baclofen (BACLOFEN) 10 Mg Tablet, 30 MG PO Q8H, #90 TAB hold for sbp <110 08/13/19 Albuterol Sulfate (ALBUTEROL SULFATE) 2.5 Mg/3 Ml Vial.neb, 3 ML INH Q8H 08/13/19 Levalbuterol Hcl (XOPENEX) 0.63 Mg/3 Ml Vial.neb, 1 INH INH Q8H PRN for SHORTNESS OF BREATH 08/13/19 Acetaminophen (ACETAMINOPHEN) 325 Mg Tablet, 650 MG PO Q4H PRN for ELEVATED TEMPERATURE for 5 Days, TAB 08/13/19 Thiamine HCl (B-1) 100 Mg Tablet, 100 MG PEG DAILY 08/13/19 Sennosides (SENNA LAXATIVE) 8.6 Mg Tablet, 1 TAB PEG DAILY 08/13/19 Scopolamine (Scopolamine) 1 Each Patch.td.3, 1 PATCH TOP Q72H 08/13/19 Polyethylene Glycol 3350 (POLYETHYLENE GLYCOL 3350) 17 Gm Powd.pack, 17 GM PO DAILY, PACKET 08/13/19 Multivitamin With Minerals (MULTIPLE VITAMIN) 1 Each Tablet, 1 TAB PEG DAILY 08/13/19 KAY PHILIPPE MD Mar 28, 2020 21:10
--- OUTSIDE RECORDS SUMMARY | 2020-03-28 21:24 | XMS REPORT | Continuity of Care Document ---
Author Author [facility] Organization [facility] Address [address] [place] [address] Phone Unavailable Care Team Providers Care Senior Java Web Application Developer Name Role Phone MALLORY ROJAS, MD PATTON PCP Konstantin FROST Attphys Unavailable CASIE, T TOLENTINO Attphys Unavailable Maggy LAYNE Attphys Unavailable BETHEA, SOUHEIL Attphys Unavailable BETHEA, SOUHEIL Admphys Unavailable Payers Payer Name Policy Type Policy Number Effective Date Expiration Date Maggy Christine [employer] [id number] 2019 00:00:00 [facility] Medicare A & B [id number] 2014 00:00:00 [facility] TMHP [id number] 2020 00:00:00 [facility] Cdc Review Covid19 [id number] [facility] Christine Medicaid [id number] 2019 00:00:00 [facility] Problems Condition Name Condition Details Condition Category Status Onset Date Resolution Date Last Treatment Date Treating Clinician Comments Source Body temperature above normal Hyperthermia Problem Active [facility] Pneumonia Pneumonia Problem Active [facility] Sepsis Problem Active [facility] Hypoxemia Problem Active [facility] Transient hypotension Problem Active [facility] Encounter for percutaneous endoscopic gastrostomy Problem Active [facility] Encounter for care related to feeding tube Problem Active [facility] Allergies, Adverse Reactions, Alerts Allergy Name Allergy Type Status Severity Reaction(s) Onset Date Inacti ve Date Treating Clinician Comments Source No Known Allergies DA Active U 2020-02-03 00:00:00 [facility] No Known Allergies DA Active U 2020-01-20 00:00:00 [facility] No Known Allergies DA Active U 2019-10-26 00:00:00 [facility] No Known Allergies DA Active U 2019-10-09 00:00:00 [facility] No Known Drug Allergies DA Active U 2019-09-12 00:00:00 [facility] No Known Contrast Allergies DA Active U 2007-08-26 00:00: 00 [facility] No Known Drug Allergies DA Active U 2007-08-26 00:00:00 [facility] No Known Food Allergies DA Active U 2007-08-26 00:00:00 [facility] No Known Other Allergies DA Active U 2007-08-26 00:00:00 [facility] Social History Social Habit Start Date Stop Date Quantity Comments Source Sex Assigned At 1975 00:00:00 1975 00[birth year]00:00 Male [facility] Medications Ordered Medication Name Filled Medication Name Start Date Stop Da te Current Medication? Ordering Clinician Indication Dosage Frequency Signature (SIG) Comments Components Source Acetaminophen Acetaminophen Yes 650 Every 4 Hours as needed for Elevated Temperature [facility] Albuterol Sulfate Albuterol Sulfate Yes .0 83 Every 4 Hours as needed for Shortness Of Breath [facility] Albuterol Sulfate Albuterol Sulfate Yes 3 Ever y 8 Hours [facility] Baclofen Baclofen Yes 30 Every 8 Hours [facility] Carbamide Peroxide (Debrox) 15 Ml DROPS Carbamide Peroxide ( Debrox) 15 Ml DROPS Yes 5 Mon And Fri [facility] Clonazepam Clonazepam Yes 1 Every 8 Hours [facility] Folic Acid Folic Acid Yes 1 Bedtime [facility] Keppra Solution Keppra Solution Yes 1000 Twice A Day [facility] Ketoconazole (Nizoral A-D) 125 Ml SHAMPOO Ketoconazole (Nizoral A-D) 125 Ml SHAMPOO Yes 1 .thu [facility] Levalbuterol Hcl (Xopenex) 0.63 Mg/3 Ml VIAL.NEB Leval buterol Hcl (Xopenex) 0.63 Mg/3 Ml VIAL.NEB Yes 1 Every 8 Hours as needed for Shortness Of Breath [facility] Multivitamin With Minerals (Multiple Vitamin) 1 Each T ABLET Multivitamin With Minerals (Multiple Vitamin) 1 Each TABLET Yes 1 Daily [facility] Polyethylene Glycol 3350 Polyethylene Glycol 3350 Yes 17 Daily [facility] Potassium Bicarbonate/Cit Ac (Effer-K 20 Meq Tablet Ef f) 20 Meq TABLET.EFF Potassium Bicarbonate/Cit Ac (Effer-K 20 Meq Tablet Eff) 20 Meq TABLET.EFF Yes 20 Mon,Thu,Thu [facility] Scopolamine Scopolamine Yes 1 Every 72 Hours [facility] Sennosides (Senna Laxative) 8.6 Mg TABLET Sennosides ( Senna Laxative) 8.6 Mg TABLET Yes 1 Daily [facility] Thiamine Hcl (B-1) 100 Mg TABLET Thiamine Hcl (B-1) 100 Mg TABLET Yes 100 Daily [facility] Vital Signs Vital Name Observation Time Observation Value Comments Source Oxygen saturation by Pulse oximetry 2020-03-28 07:35:00 98 /min [facility] Weight 2020-03-28 07:35:00 135 [lb_av] [facility] BMI (Body Mass Index) 2020-03-28 07:35:00 23.2 kg/m2 [facility] Oxygen saturation by Pulse oximetry 2020-03-15 07:55:00 100 /min [facility] Weight 2020-03-15 07:55:00 120 [lb_av] [facility] BMI (Body Mass Index) 2020-03-15 07:55:00 18.8 kg/m2 [facility] Body Temperature 2020-03-10 09:40:00 98.1 [degF] [facility] Heart Rate 2020-03-10 09:40:00 86 /min [facility] Respiratory rate 2020-03-10 09:40:00 18 /min [facility] BP Systolic 2020-03-10 09:40:00 125 mm[Hg] [facility] BP Diastolic 2020-03-10 09:40:00 75 mm[Hg] [facility] Body Temperature 2020-02-02 19:06:00 97.5 [degF] [facility] Weight 2020-02-02 19:03:00 130 [lb_av] [facility] BMI (Body Mass Index) 2020-02-02 19:03:00 21.0 kg/m2 [facility] Weight 2020-01-24 08:56:00 130 [lb_av] [facility] BMI (Body Mass Index) 2020-01-24 08:56:00 21.0 kg/m2 [facility] Weight 2020-01-13 20:15:00 130 [lb_av] [facility] BMI (Body Mass Index) 2020-01-13 20:15:00 21.0 kg/m2 [facility] Weight 2019-12-02 11:40:00 130 [lb_av] [facility] BMI (Body Mass Index) 2019-12-02 11:40:00 21.0 kg/m2 [facility] Body Temperature 2019-10-13 11:06:00 98.0 [degF] [facility] Weight 2019-10-13 08:47:00 181 [lb_av] [facility] BMI (Body Mass Index) 2019-10-13 08:47:00 25.2 kg/m2 [facility] Procedures Procedure Date / Time Performed Performing Clinician [facility] 2020-03-15 00[facility]00:[address] [facility] 2020-03-11 00:00:[address] [facility] 2020-03-10 00:00:[address] [facility] NO [facility] 2020-02-02 00:00:00 [facility] EMERGENCY DEPT VISIT 2020-02-02 00:00:00 [facility] NO [facility] 2020-01-24 00:00:[address] [facility] NO [facility] 2020-01-13 00:00:[address] [facility] NO [facility] 2019-10-13 00:00:00 [facility] Computed tomography of chest without contrast 2019-08-13 00: 00:00 KAY PHILIPPE [facility] Plan of Care Planned Activity Planned Date Details Comments Source Instructions GI Tube Care [facility] Encounters Start Date/Time End Date/Time Encounter Type Admission Type [facility] Care Department Encounter ID Source 2020-03-28 07:41:00 2020-03-28 08:00:00 Departed Emergency Room [facility] [id number] [facility] 2020-03-15 07:58:00 2020-03-15 08:05:00 Departed Emergency Room [facility] [id number] [facility] 2020-03-11 21:31:00 2020-03-11 21:40:00 Departed Emergency Room [facility] [id number] [facility] [place] 2020-03-10 21:15:00 2020-03-10 21:35:[address] [facility] [id number] [facility] [place] 2020-03-10 08:14:00 2020-03-10 09:47:00 Departed Emergency Room 1 [facility] [id number] [facility] [place] 2020-02-02 19:45:00 2020-02-02 20:12:[address] [facility] [id number] [facility] [place] 2020-01-24 09:51:00 2020-01-24 12:16:00 [facility] [id number] [facility] [place] 2020-01-13 21:11:00 2020-01-13 21:35:[address] [facility] [id number] [facility] 2019-12-02 13:00:00 2019-12-02 17:52:00 Departed Emergency Room [address] [facility] [id number] [facility] [place] 2019-10-13 09:48:00 2019-10-13 12:48:00 Departed Emergency Room [address] [facility] [id number] [facility] [place] 2019-08-13 06:31:00 2019-08-15 15:30:00 Discharged Inpatient [address] [facility] [id number] [facility] Results Test Description Test Time Test Comments Results Result Comments Source ABDOMEN-1VIEW (KUB) 2020-03-10 08:04:00 [facility] 1975 Sex: M [facility] [address] [address] Patient Name: VANESSA KHOURY MR #: [id number] : 1975 Age/Sex: 44/M Req #: [id number] Adm Physician: Ordered by: JOSE FROST MD Report #: [id number] Location: ER Room/Bed: Procedure: [id number] DX/ABDOMEN-1VIEW (KUB) Exam Date: 03/10/20 Exam Time: 0732 REPORT STATUS: Signed EXAM: Abdomen Radiograph 1 View(s) INDICATION: W/ GASTRO, G-TUBE REPLACEMENT COMPARISON: Multiple prior x- rays including most recent on 01/24/2020. FINDINGS: There is a gastrotomy tube in place. Contrast is noted in the entire stomach and proximal duodenum. No extraluminal contrast identified. Drops of contrast projecting over the left lower quadrant and pelvis is likely external to the patient. Nonobstructive bowel gas pattern. Small stool burden throughout the colon. No evidence of pneumoperitoneum. IMPRESSION: 1. Intragastric positioning of gastrostomy tube with opacification of the entire stomach and proximal duodenum. 2. Nonobstructive bowel gas pattern. Signed by: Sterling Ordonez MD on 03/10/2020 8:11 AM Dictated By: STERLING ORDONEZ MD 0 Transcribed By: SARAH on 03/10/20810 COPY TO: JOSE FROST MD COMPREHENSIVE METABOLIC PANEL 2020-02-21 14:10:00 Test Item SODIUM (test code = NA) 151 mmol/L 136-145 H POTASSIUM (test code = K) 4.2 mmol/L 3.5-5.1 N CHLORIDE (test code = CL) 115.0 mmol/L 98-107 H CARBON DIOXIDE (test code = CO2) 31.0 mmol/L 21-32 N ANION GAP (test code = GAP) 9.2 10-20 L GLUCOSE (test code = GLU) 150 mg/dL 74-106 H BLOOD UREA NITROGEN (test code = BUN) 21 mg/dL 7-18 H GLOMERULAR FILTRATION RATE (test code = GFR) > 60 mL/min >=60 Estimated GFR by using Modified MDRD formula.Chronic kidney disease is defined as either kidney damageor GFR <60 mL/min/1.73 m2 for >3 months. CREATININE (test code = CREAT) 0.60 mg/dL 0.7-1.3 L BUN/CREATININE RATIO (test code = BUN/CREA) 35.1 10-20 H TOTAL PROTEIN (test code = PROT) 8.0 gram/dL 6.4-8.2 N ALBUMIN (test code = ALB) 2.6 g/dL 3.4-5.0 L GLOBULIN (test code = GLOB) 5.4 gram/dL 2.7-4.2 H ALBUMIN/GLOBULIN RATIO (test code = A/G) 0.5 0.75-1.50 L CALCIUM (test code = CA) 9.0 mg/dL 8.5-10.1 N BILIRUBIN TOTAL (test code = BILT) 0.50 mg/dL 0.0-1.0 N SGOT/AST (test code = AST) 37 IUnit/L 15-37 N SGPT/ALT (test code = ALT) 46 IUnit/L 12-78 N ALKALINE PHOSPHATASE TOTAL (test code = ALKP) 191 IUnit/L 45-117 H Note change in reference range due to change in reagent. SPECIMEN COMMENTS: CODE [id number] 14:10:00* Test Item Value Reference Range Interpretation Comments PHOSPHORUS (test code = PHOS) 3.7 mg/dL 2.5-4.9 N SPECIMEN COMMENTS: CODE [id number] 14:10:00* Test Item Value Reference Range Interpretation Comments MAGNESIUM (test code = MAG) 2.5 mg/dL 1.8-2.4 H SPECIMEN COMMENTS: CODE [id number] 14:10:00* Test Item Value Reference Range Interpretation Comments CALCITONIN (test code = CALC) 4.5 pg/mL 0.0-8.4 Siemens Immulite 2000 Immunochemiluminometric assay (ICMA)Values obtained with different assay methods or kits cannotbe used interchangeably. Results cannot be interpreted asabsolute evidence of the presence or absence of malignantdisease.Performed At: [address] [id number] Sanjai MD Ph:[phone] SPECIMEN COMMENTS: CODE [id number] 12:47:00* Test Item Value Reference Range Interpretation Comments GLUBED (test code = GLUBED) 98 mg/dL 74-106 N Performed by certified stripper machine operator at [facility] [id number] 08:39:00* Test Item Value Reference Range Interpretation Comments GLUBED (test code = GLUBED) 126 mg/dL 74-106 H Performed by certified stripper machine operator at [facility] [id number] 20:50:00* Test Item Value Reference Range Interpretation Comments GLUBED (test code = GLUBED) 132 mg/dL 74-106 H Performed by certified stripper machine operator at [facility] CBC W/AUTO [id number] 06:33:00* Test Item Value Reference Range Interpretation Comments WHITE BLOOD CELL (test code = WBC) 8.2 K/mm3 4.5-12.5 N RED BLOOD CELL (test code = RBC) 3.28 mill/mm3 4.0-5.8 L HEMOGLOBIN (test code = HGB) 9.8 gram/dL 13.0-17.5 L HEMATOCRIT (test code = HCT) 33.4 % 42.0-52.0 L MEAN CELL VOLUME (test code = MCV) 101.8 fL 80-98 H MEAN CELL HGB (test code = MCH) 29.9 picogram 27.0-33.0 N MEAN CELL HGB CONCETRATION (test code = MCHC) 29.3 gram/dL 33.0-36. 0 L RED CELL DISTRIBUTION WIDTH (test code = RDW) 16.1 % 11.6-16. 2 N RED CELL DISTRIBUTION WIDTH SD (test code = RDW-SD) 59.9 fL 37 .0-51.0 H PLATELET COUNT (test code = PLT) 78 K/mm3 150-450 L MEAN PLATELET VOLUME (test code = MPV) 13.2 fL 6.7-11.0 H NEUTROPHIL % (test code = NT%) 75.1 % 39.0-69.0 H IMMATURE GRANULOCYTE % (test code = IG%) 0.4 % 0.0-5.0 N LYMPHOCYTE % (test code = LY%) 13.0 % 25.0-55.0 L MONOCYTE % (test code = MO%) 6.1 % 0.0-10.0 N EOSINOPHIL % (test code = EO%) 5.2 % 0.0-5.0 H BASOPHIL % (test code = BA%) 0.2 % 0.0-1.0 N NUCLEATED RBC % (test code = NRBC%) 0.0 % 0-0 N NEUTROPHIL # (test code = NT#) 6.12 K/mm3 1.8-7.7 N IMMATURE GRANULOCYTE # (test code = IG#) 0.03 x10 3/uL 0-0.03 N LYMPHOCYTE # (test code = LY#) 1.06 K/mm3 1.0-5.0 N MONOCYTE # (test code = MO#) 0.50 K/mm3 0-0.8 N EOSINOPHIL # (test code = EO#) 0.42 K/mm3 0.0-0.5 N BASOPHIL # (test code = BA#) 0.02 K/mm3 0.0-0.2 N NUCLEATED RBC # (test code = NRBC#) 0.00 K/mm3 0.0-0.1 N MANUAL DIFF REQUIRED (test code = MDIFF) NO, ONLY SCAN NEEDED DIFFERENTIAL [id number] 06:33:00* Test Item Value Reference Range Interpretation Comments STAIN ACCEPTABILITY (test code = STN ACCEPTABLE) STAIN ACCEPTABLE POLYCHROMASIA (test code = POLC) 1+ HYPOCHROMIA (test code = HYPO) 1+ ANISOCYTOSIS (test code = ANISO) 1+ MORPHOLOGY COMMENT (test code = MOC) TEST NOT PERFORMED PLATELET ESTIMATE (test code = PLTEST) DECREASED PLATELET MORPHOLOGY (test code = PLTMORPH) NORMAL CBC W/AUTO [id number] 06:11:00* Test Item Value Reference Range Interpretation Comments WHITE BLOOD CELL (test code = WBC) 8.2 K/mm3 4.5-12.5 N RED BLOOD CELL (test code = RBC) 3.28 mill/mm3 4.0-5.8 L HEMOGLOBIN (test code = HGB) 9.8 gram/dL 13.0-17.5 L HEMATOCRIT (test code = HCT) 33.4 % 42.0-52.0 L MEAN CELL VOLUME (test code = MCV) 101.8 fL 80-98 H MEAN CELL HGB (test code = MCH) 29.9 picogram 27.0-33.0 N MEAN CELL HGB CONCETRATION (test code = MCHC) 29.3 gram/dL 33.0-36. 0 L RED CELL DISTRIBUTION WIDTH (test code = RDW) 16.1 % 11.6-16. 2 N RED CELL DISTRIBUTION WIDTH SD (test code = RDW-SD) 59.9 fL 37 .0-51.0 H PLATELET COUNT (test code = PLT) 78 K/mm3 150-450 L MEAN PLATELET VOLUME (test code = MPV) 13.2 fL 6.7-11.0 H NEUTROPHIL % (test code = NT%) 75.1 % 39.0-69.0 H IMMATURE GRANULOCYTE % (test code = IG%) 0.4 % 0.0-5.0 N LYMPHOCYTE % (test code = LY%) 13.0 % 25.0-55.0 L MONOCYTE % (test code = MO%) 6.1 % 0.0-10.0 N EOSINOPHIL % (test code = EO%) 5.2 % 0.0-5.0 H BASOPHIL % (test code = BA%) 0.2 % 0.0-1.0 N NUCLEATED RBC % (test code = NRBC%) 0.0 % 0-0 N NEUTROPHIL # (test code = NT#) 6.12 K/mm3 1.8-7.7 N IMMATURE GRANULOCYTE # (test code = IG#) 0.03 x10 3/uL 0-0.03 N LYMPHOCYTE # (test code = LY#) 1.06 K/mm3 1.0-5.0 N MONOCYTE # (test code = MO#) 0.50 K/mm3 0-0.8 N EOSINOPHIL # (test code = EO#) 0.42 K/mm3 0.0-0.5 N BASOPHIL # (test code = BA#) 0.02 K/mm3 0.0-0.2 N NUCLEATED RBC # (test code = NRBC#) 0.00 K/mm3 0.0-0.1 N MANUAL DIFF REQUIRED (test code = MDIFF) NO, ONLY SCAN NEEDED DIFFERENTIAL [id number] 06:11:00* Test Item Value Reference Range Interpretation Comments STAIN ACCEPTABILITY (test code = STN ACCEPTABLE) CABOT RINGS (test code = CAB) MORPHOLOGY COMMENT (test code = MOC) PLATELET ESTIMATE (test code = PLTEST) PLATELET MORPHOLOGY (test code = PLTMORPH) CBC W/AUTO [id number] 06:11:00* Test Item Value Reference Range Interpretation Comments WHITE BLOOD CELL (test code = WBC) 8.2 K/mm3 4.5-12.5 N RED BLOOD CELL (test code = RBC) 3.28 mill/mm3 4.0-5.8 L HEMOGLOBIN (test code = HGB) 9.8 gram/dL 13.0-17.5 L HEMATOCRIT (test code = HCT) 33.4 % 42.0-52.0 L MEAN CELL VOLUME (test code = MCV) 101.8 fL 80-98 H MEAN CELL HGB (test code = MCH) 29.9 picogram 27.0-33.0 N MEAN CELL HGB CONCETRATION (test code = MCHC) 29.3 gram/dL 33.0-36. 0 L RED CELL DISTRIBUTION WIDTH (test code = RDW) 16.1 % 11.6-16. 2 N RED CELL DISTRIBUTION WIDTH SD (test code = RDW-SD) 59.9 fL 37 .0-51.0 H PLATELET COUNT (test code = PLT) 78 K/mm3 150-450 L MEAN PLATELET VOLUME (test code = MPV) 13.2 fL 6.7-11.0 H NEUTROPHIL % (test code = NT%) 75.1 % 39.0-69.0 H IMMATURE GRANULOCYTE % (test code = IG%) 0.4 % 0.0-5.0 N LYMPHOCYTE % (test code = LY%) 13.0 % 25.0-55.0 L MONOCYTE % (test code = MO%) 6.1 % 0.0-10.0 N EOSINOPHIL % (test code = EO%) 5.2 % 0.0-5.0 H BASOPHIL % (test code = BA%) 0.2 % 0.0-1.0 N NUCLEATED RBC % (test code = NRBC%) 0.0 % 0-0 N NEUTROPHIL # (test code = NT#) 6.12 K/mm3 1.8-7.7 N IMMATURE GRANULOCYTE # (test code = IG#) 0.03 x10 3/uL 0-0.03 N LYMPHOCYTE # (test code = LY#) 1.06 K/mm3 1.0-5.0 N MONOCYTE # (test code = MO#) 0.50 K/mm3 0-0.8 N EOSINOPHIL # (test code = EO#) 0.42 K/mm3 0.0-0.5 N BASOPHIL # (test code = BA#) 0.02 K/mm3 0.0-0.2 N NUCLEATED RBC # (test code = NRBC#) 0.00 K/mm3 0.0-0.1 N MANUAL DIFF REQUIRED (test code = MDIFF) NO, ONLY SCAN NEEDED DIFFERENTIAL [id number] 06:11:00* Test Item Value Reference Range Interpretation Comments STAIN ACCEPTABILITY (test code = STN ACCEPTABLE) CABOT RINGS (test code = CAB) MORPHOLOGY COMMENT (test code = MOC) PLATELET ESTIMATE (test code = PLTEST) PLATELET MORPHOLOGY (test code = PLTMORPH) CBC W/AUTO [id number] 06:11:00* Test Item Value Reference Range Interpretation Comments WHITE BLOOD CELL (test code = WBC) 8.2 K/mm3 4.5-12.5 N RED BLOOD CELL (test code = RBC) 3.28 mill/mm3 4.0-5.8 L HEMOGLOBIN (test code = HGB) 9.8 gram/dL 13.0-17.5 L HEMATOCRIT (test code = HCT) 33.4 % 42.0-52.0 L MEAN CELL VOLUME (test code = MCV) 101.8 fL 80-98 H MEAN CELL HGB (test code = MCH) 29.9 picogram 27.0-33.0 N MEAN CELL HGB CONCETRATION (test code = MCHC) 29.3 gram/dL 33.0-36. 0 L RED CELL DISTRIBUTION WIDTH (test code = RDW) 16.1 % 11.6-16. 2 N RED CELL DISTRIBUTION WIDTH SD (test code = RDW-SD) 59.9 fL 37 .0-51.0 H PLATELET COUNT (test code = PLT) 78 K/mm3 150-450 L MEAN PLATELET VOLUME (test code = MPV) 13.2 fL 6.7-11.0 H NEUTROPHIL % (test code = NT%) 75.1 % 39.0-69.0 H IMMATURE GRANULOCYTE % (test code = IG%) 0.4 % 0.0-5.0 N LYMPHOCYTE % (test code = LY%) 13.0 % 25.0-55.0 L MONOCYTE % (test code = MO%) 6.1 % 0.0-10.0 N EOSINOPHIL % (test code = EO%) 5.2 % 0.0-5.0 H BASOPHIL % (test code = BA%) 0.2 % 0.0-1.0 N NUCLEATED RBC % (test code = NRBC%) 0.0 % 0-0 N NEUTROPHIL # (test code = NT#) 6.12 K/mm3 1.8-7.7 N IMMATURE GRANULOCYTE # (test code = IG#) 0.03 x10 3/uL 0-0.03 N LYMPHOCYTE # (test code = LY#) 1.06 K/mm3 1.0-5.0 N MONOCYTE # (test code = MO#) 0.50 K/mm3 0-0.8 N EOSINOPHIL # (test code = EO#) 0.42 K/mm3 0.0-0.5 N BASOPHIL # (test code = BA#) 0.02 K/mm3 0.0-0.2 N NUCLEATED RBC # (test code = NRBC#) 0.00 K/mm3 0.0-0.1 N MANUAL DIFF REQUIRED (test code = MDIFF) NO, ONLY SCAN NEEDED DIFFERENTIAL [id number] 06:11:00* Test Item Value Reference Range Interpretation Comments STAIN ACCEPTABILITY (test code = STN ACCEPTABLE) MORPHOLOGY COMMENT (test code = MOC) PLATELET ESTIMATE (test code = PLTEST) PLATELET MORPHOLOGY (test code = PLTMORPH) CBC W/AUTO [id number] 06:11:00* Test Item Value Reference Range Interpretation Comments WHITE BLOOD CELL (test code = WBC) 8.2 K/mm3 4.5-12.5 N RED BLOOD CELL (test code = RBC) 3.28 mill/mm3 4.0-5.8 L HEMOGLOBIN (test code = HGB) 9.8 gram/dL 13.0-17.5 L HEMATOCRIT (test code = HCT) 33.4 % 42.0-52.0 L MEAN CELL VOLUME (test code = MCV) 101.8 fL 80-98 H MEAN CELL HGB (test code = MCH) 29.9 picogram 27.0-33.0 N MEAN CELL HGB CONCETRATION (test code = MCHC) 29.3 gram/dL 33.0-36. 0 L RED CELL DISTRIBUTION WIDTH (test code = RDW) 16.1 % 11.6-16. 2 N RED CELL DISTRIBUTION WIDTH SD (test code = RDW-SD) 59.9 fL 37 .0-51.0 H PLATELET COUNT (test code = PLT) 78 K/mm3 150-450 L MEAN PLATELET VOLUME (test code = MPV) 13.2 fL 6.7-11.0 H NEUTROPHIL % (test code = NT%) 75.1 % 39.0-69.0 H IMMATURE GRANULOCYTE % (test code = IG%) 0.4 % 0.0-5.0 N LYMPHOCYTE % (test code = LY%) 13.0 % 25.0-55.0 L MONOCYTE % (test code = MO%) 6.1 % 0.0-10.0 N EOSINOPHIL % (test code = EO%) 5.2 % 0.0-5.0 H BASOPHIL % (test code = BA%) 0.2 % 0.0-1.0 N NUCLEATED RBC % (test code = NRBC%) 0.0 % 0-0 N NEUTROPHIL # (test code = NT#) 6.12 K/mm3 1.8-7.7 N IMMATURE GRANULOCYTE # (test code = IG#) 0.03 x10 3/uL 0-0.03 N LYMPHOCYTE # (test code = LY#) 1.06 K/mm3 1.0-5.0 N MONOCYTE # (test code = MO#) 0.50 K/mm3 0-0.8 N EOSINOPHIL # (test code = EO#) 0.42 K/mm3 0.0-0.5 N BASOPHIL # (test code = BA#) 0.02 K/mm3 0.0-0.2 N NUCLEATED RBC # (test code = NRBC#) 0.00 K/mm3 0.0-0.1 N MANUAL DIFF REQUIRED (test code = MDIFF) NO, ONLY SCAN NEEDED DIFFERENTIAL [id number] 06:11:00* Test Item Value Reference Range Interpretation Comments STAIN ACCEPTABILITY (test code = STN ACCEPTABLE) CABOT RINGS (test code = CAB) MORPHOLOGY COMMENT (test code = MOC) PLATELET ESTIMATE (test code = PLTEST) PLATELET MORPHOLOGY (test code = PLTMORPH) BASIC METABOLIC [id number] 06:08:00* Test Item Value Reference Range Interpretation Comments SODIUM (test code = NA) 150 mmol/L 136-145 H POTASSIUM (test code = K) 3.7 mmol/L 3.5-5.1 N CHLORIDE (test code = CL) 117.0 mmol/L 98-107 H CARBON DIOXIDE (test code = CO2) 29.0 mmol/L 21-32 N ANION GAP (test code = GAP) 7.7 10-20 L GLUCOSE (test code = GLU) 120 mg/dL 74-106 H BLOOD UREA NITROGEN (test code = BUN) 16 mg/dL 7-18 N GLOMERULAR FILTRATION RATE (test code = GFR) > 60 mL/min >=60 Estimated GFR by using Modified MDRD formula.Chronic kidney disease is defined as either kidney damageor GFR <60 mL/min/1.73 m2 for >3 months. CREATININE (test code = CREAT) 0.30 mg/dL 0.7-1.3 L BUN/CREATININE RATIO (test code = BUN/CREA) 53.3 10-20 H CALCIUM (test code = CA) 8.5 mg/dL 8.5-10.1 N BASIC METABOLIC [id number] 05:58:00* Test Item Value Reference Range Interpretation Comments SODIUM (test code = NA) 150 mmol/L 136-145 H POTASSIUM (test code = K) 3.7 mmol/L 3.5-5.1 N CHLORIDE (test code = CL) 117.0 mmol/L [...] code = CA) mg/dL 8.5-10.1 CBC W/AUTO [id number] 09:08:00* Test Item Value Reference Range Interpretation Comments WHITE BLOOD CELL (test code = WBC) 12.5 K/mm3 4.5-12.5 N RED BLOOD CELL (test code = RBC) 3.43 mill/mm3 4.0-5.8 L HEMOGLOBIN (test code = HGB) 10.2 gram/dL 13.0-17.5 L HEMATOCRIT (test code = HCT) 34.9 % 42.0-52.0 L MEAN CELL VOLUME (test code = MCV) 101.7 fL 80-98 H MEAN CELL HGB (test code = MCH) 29.7 picogram 27.0-33.0 N MEAN CELL HGB CONCETRATION (test code = MCHC) 29.2 gram/dL 33.0-36. 0 L RED CELL DISTRIBUTION WIDTH (test code = RDW) 16.4 % 11.6-16. 2 H RED CELL DISTRIBUTION WIDTH SD (test code = RDW-SD) 60.5 fL 37 .0-51.0 H PLATELET COUNT (test code = PLT) 74 K/mm3 150-450 L MEAN PLATELET VOLUME (test code = MPV) 13.2 fL 6.7-11.0 H NEUTROPHIL % (test code = NT%) 79.4 % 39.0-69.0 H IMMATURE GRANULOCYTE % (test code = IG%) 0.5 % 0.0-5.0 N LYMPHOCYTE % (test code = LY%) 10.7 % 25.0-55.0 L MONOCYTE % (test code = MO%) 6.0 % 0.0-10.0 N EOSINOPHIL % (test code = EO%) 3.0 % 0.0-5.0 N BASOPHIL % (test code = BA%) 0.4 % 0.0-1.0 N NUCLEATED RBC % (test code = NRBC%) 0.0 % 0-0 N NEUTROPHIL # (test code = NT#) 9.91 K/mm3 1.8-7.7 H IMMATURE GRANULOCYTE # (test code = IG#) 0.06 x10 3/uL 0-0.03 H LYMPHOCYTE # (test code = LY#) 1.34 K/mm3 1.0-5.0 N MONOCYTE # (test code = MO#) 0.75 K/mm3 0-0.8 N EOSINOPHIL # (test code = EO#) 0.38 K/mm3 0.0-0.5 N BASOPHIL # (test code = BA#) 0.05 K/mm3 0.0-0.2 N NUCLEATED RBC # (test code = NRBC#) 0.00 K/mm3 0.0-0.1 N MANUAL DIFF REQUIRED (test code = MDIFF) NO, ONLY SCAN NEEDED DIFFERENTIAL [id number] 09:08:00* Test Item Value Reference Range Interpretation Comments STAIN ACCEPTABILITY (test code = STN ACCEPTABLE) STAIN ACCEPTABLE POLYCHROMASIA (test code = POLC) 1+ ANISOCYTOSIS (test code = ANISO) 1+ PLATELET ESTIMATE (test code = PLTEST) DECREASED PLATELET MORPHOLOGY (test code = PLTMORPH) CLUMPING PRESENT BASIC METABOLIC [id number] 08:34:00* Test Item Value Reference Range Interpretation Comments SODIUM (test code = NA) 152 mmol/L 136-145 H POTASSIUM (test code = K) 3.8 mmol/L 3.5-5.1 N CHLORIDE (test code = CL) 118.0 mmol/L 98-107 H CARBON DIOXIDE (test code = CO2) 32.0 mmol/L 21-32 N ANION GAP (test code = GAP) 5.8 10-20 L GLUCOSE (test code = GLU) 150 mg/dL 74-106 H BLOOD UREA NITROGEN (test code = BUN) 20 mg/dL 7-18 H GLOMERULAR FILTRATION RATE (test code = GFR) > 60 mL/min >=60 Estimated GFR by using Modified MDRD formula.Chronic kidney disease is defined as either kidney damageor GFR <60 mL/min/1.73 m2 for >3 months. CREATININE (test code = CREAT) 0.50 mg/dL 0.7-1.3 L BUN/CREATININE RATIO (test code = BUN/CREA) 42.6 10-20 H CALCIUM (test code = CA) 8.6 mg/dL 8.5-10.1 N BASIC METABOLIC [id number] 08:32:00* Test Item Value Reference Range Interpretation Comments SODIUM (test code = NA) 152 mmol/L 136-145 H POTASSIUM (test code = K) 3.8 mmol/L [...] BUN/CREA) 10-20 CALCIUM (test code = CA) 8.6 mg/dL 8.5-10.1 N CBC W/AUTO [id number] 08:25:00* Test Item Value Reference Range Interpretation Comments WHITE BLOOD CELL (test code = WBC) 12.5 K/mm3 4.5-12.5 N RED BLOOD CELL (test code = RBC) 3.43 mill/mm3 4.0-5.8 L HEMOGLOBIN (test code = HGB) 10.2 gram/dL 13.0-17.5 L HEMATOCRIT (test code = HCT) 34.9 % 42.0-52.0 L MEAN CELL VOLUME (test code = MCV) 101.7 fL 80-98 H MEAN CELL HGB (test code = MCH) 29.7 picogram 27.0-33.0 N MEAN CELL HGB CONCETRATION (test code = MCHC) 29.2 gram/dL 33.0-36. 0 L RED CELL DISTRIBUTION WIDTH (test code = RDW) 16.4 % 11.6-16. 2 H RED CELL DISTRIBUTION WIDTH SD (test code = RDW-SD) 60.5 fL 37 .0-51.0 H PLATELET COUNT (test code = PLT) 74 K/mm3 150-450 L MEAN PLATELET VOLUME (test code = MPV) 13.2 fL 6.7-11.0 H NEUTROPHIL % (test code = NT%) 79.4 % 39.0-69.0 H IMMATURE GRANULOCYTE % (test code = IG%) 0.5 % 0.0-5.0 N LYMPHOCYTE % (test code = LY%) 10.7 % 25.0-55.0 L MONOCYTE % (test code = MO%) 6.0 % 0.0-10.0 N EOSINOPHIL % (test code = EO%) 3.0 % 0.0-5.0 N BASOPHIL % (test code = BA%) 0.4 % 0.0-1.0 N NUCLEATED RBC % (test code = NRBC%) 0.0 % 0-0 N NEUTROPHIL # (test code = NT#) 9.91 K/mm3 1.8-7.7 H IMMATURE GRANULOCYTE # (test code = IG#) 0.06 x10 3/uL 0-0.03 H LYMPHOCYTE # (test code = LY#) 1.34 K/mm3 1.0-5.0 N MONOCYTE # (test code = MO#) 0.75 K/mm3 0-0.8 N EOSINOPHIL # (test code = EO#) 0.38 K/mm3 0.0-0.5 N BASOPHIL # (test code = BA#) 0.05 K/mm3 0.0-0.2 N NUCLEATED RBC # (test code = NRBC#) 0.00 K/mm3 0.0-0.1 N MANUAL DIFF REQUIRED (test code = MDIFF) NO, ONLY SCAN NEEDED DIFFERENTIAL [id number] 08:25:00* Test Item Value Reference Range Interpretation Comments STAIN ACCEPTABILITY (test code = STN ACCEPTABLE) CABOT RINGS (test code = CAB) MORPHOLOGY COMMENT (test code = MOC) PLATELET ESTIMATE (test code = PLTEST) PLATELET MORPHOLOGY (test code = PLTMORPH) CBC W/AUTO [id number] 08:25:00* Test Item Value Reference Range Interpretation Comments WHITE BLOOD CELL (test code = WBC) 12.5 K/mm3 4.5-12.5 N RED BLOOD CELL (test code = RBC) 3.43 mill/mm3 4.0-5.8 L HEMOGLOBIN (test code = HGB) 10.2 gram/dL 13.0-17.5 L HEMATOCRIT (test code = HCT) 34.9 % 42.0-52.0 L MEAN CELL VOLUME (test code = MCV) 101.7 fL 80-98 H MEAN CELL HGB (test code = MCH) 29.7 picogram 27.0-33.0 N MEAN CELL HGB CONCETRATION (test code = MCHC) 29.2 gram/dL 33.0-36. 0 L RED CELL DISTRIBUTION WIDTH (test code = RDW) 16.4 % 11.6-16. 2 H RED CELL DISTRIBUTION WIDTH SD (test code = RDW-SD) 60.5 fL 37 .0-51.0 H PLATELET COUNT (test code = PLT) 74 K/mm3 150-450 L MEAN PLATELET VOLUME (test code = MPV) 13.2 fL 6.7-11.0 H NEUTROPHIL % (test code = NT%) 79.4 % 39.0-69.0 H IMMATURE GRANULOCYTE % (test code = IG%) 0.5 % 0.0-5.0 N LYMPHOCYTE % (test code = LY%) 10.7 % 25.0-55.0 L MONOCYTE % (test code = MO%) 6.0 % 0.0-10.0 N EOSINOPHIL % (test code = EO%) 3.0 % 0.0-5.0 N BASOPHIL % (test code = BA%) 0.4 % 0.0-1.0 N NUCLEATED RBC % (test code = NRBC%) 0.0 % 0-0 N NEUTROPHIL # (test code = NT#) 9.91 K/mm3 1.8-7.7 H IMMATURE GRANULOCYTE # (test code = IG#) 0.06 x10 3/uL 0-0.03 H LYMPHOCYTE # (test code = LY#) 1.34 K/mm3 1.0-5.0 N MONOCYTE # (test code = MO#) 0.75 K/mm3 0-0.8 N EOSINOPHIL # (test code = EO#) 0.38 K/mm3 0.0-0.5 N BASOPHIL # (test code = BA#) 0.05 K/mm3 0.0-0.2 N NUCLEATED RBC # (test code = NRBC#) 0.00 K/mm3 0.0-0.1 N MANUAL DIFF REQUIRED (test code = MDIFF) NO, ONLY SCAN NEEDED DIFFERENTIAL [id number] 08:25:00* Test Item Value Reference Range Interpretation Comments STAIN ACCEPTABILITY (test code = STN ACCEPTABLE) MORPHOLOGY COMMENT (test code = MOC) PLATELET ESTIMATE (test code = PLTEST) PLATELET MORPHOLOGY (test code = PLTMORPH) CBC W/AUTO [id number] 08:24:00* Test Item Value Reference Range Interpretation Comments WHITE BLOOD CELL (test code = WBC) 12.5 K/mm3 4.5-12.5 N RED BLOOD CELL (test code = RBC) 3.43 mill/mm3 4.0-5.8 L HEMOGLOBIN (test code = HGB) 10.2 gram/dL 13.0-17.5 L HEMATOCRIT (test code = HCT) 34.9 % 42.0-52.0 L MEAN CELL VOLUME (test code = MCV) 101.7 fL 80-98 H MEAN CELL HGB (test code = MCH) 29.7 picogram 27.0-33.0 N MEAN CELL HGB CONCETRATION (test code = MCHC) 29.2 gram/dL 33.0-36. 0 L RED CELL DISTRIBUTION WIDTH (test code = RDW) 16.4 % 11.6-16. 2 H RED CELL DISTRIBUTION WIDTH SD (test code = RDW-SD) 60.5 fL 37 .0-51.0 H PLATELET COUNT (test code = PLT) 74 K/mm3 150-450 L MEAN PLATELET VOLUME (test code = MPV) 13.2 fL 6.7-11.0 H NEUTROPHIL % (test code = NT%) 79.4 % 39.0-69.0 H IMMATURE GRANULOCYTE % (test code = IG%) 0.5 % 0.0-5.0 N LYMPHOCYTE % (test code = LY%) 10.7 % 25.0-55.0 L MONOCYTE % (test code = MO%) 6.0 % 0.0-10.0 N EOSINOPHIL % (test code = EO%) 3.0 % 0.0-5.0 N BASOPHIL % (test code = BA%) 0.4 % 0.0-1.0 N NUCLEATED RBC % (test code = NRBC%) 0.0 % 0-0 N NEUTROPHIL # (test code = NT#) 9.91 K/mm3 1.8-7.7 H IMMATURE GRANULOCYTE # (test code = IG#) 0.06 x10 3/uL 0-0.03 H LYMPHOCYTE # (test code = LY#) 1.34 K/mm3 1.0-5.0 N MONOCYTE # (test code = MO#) 0.75 K/mm3 0-0.8 N EOSINOPHIL # (test code = EO#) 0.38 K/mm3 0.0-0.5 N BASOPHIL # (test code = BA#) 0.05 K/mm3 0.0-0.2 N NUCLEATED RBC # (test code = NRBC#) 0.00 K/mm3 0.0-0.1 N MANUAL DIFF REQUIRED (test code = MDIFF) NO, ONLY SCAN NEEDED DIFFERENTIAL [id number] 08:24:00* Test Item Value Reference Range Interpretation Comments STAIN ACCEPTABILITY (test code = STN ACCEPTABLE) CABOT RINGS (test code = CAB) MORPHOLOGY COMMENT (test code = MOC) PLATELET ESTIMATE (test code = PLTEST) PLATELET MORPHOLOGY (test code = PLTMORPH) CBC W/AUTO [id number] 08:24:00* Test Item Value Reference Range Interpretation Comments WHITE BLOOD CELL (test code = WBC) 12.5 K/mm3 4.5-12.5 N RED BLOOD CELL (test code = RBC) 3.43 mill/mm3 4.0-5.8 L HEMOGLOBIN (test code = HGB) 10.2 gram/dL 13.0-17.5 L HEMATOCRIT (test code = HCT) 34.9 % 42.0-52.0 L MEAN CELL VOLUME (test code = MCV) 101.7 fL 80-98 H MEAN CELL HGB (test code = MCH) 29.7 picogram 27.0-33.0 N MEAN CELL HGB CONCETRATION (test code = MCHC) 29.2 gram/dL 33.0-36. 0 L RED CELL DISTRIBUTION WIDTH (test code = RDW) 16.4 % 11.6-16. 2 H RED CELL DISTRIBUTION WIDTH SD (test code = RDW-SD) 60.5 fL 37 .0-51.0 H PLATELET COUNT (test code = PLT) 74 K/mm3 150-450 L MEAN PLATELET VOLUME (test code = MPV) 13.2 fL 6.7-11.0 H NEUTROPHIL % (test code = NT%) 79.4 % 39.0-69.0 H IMMATURE GRANULOCYTE % (test code = IG%) 0.5 % 0.0-5.0 N LYMPHOCYTE % (test code = LY%) 10.7 % 25.0-55.0 L MONOCYTE % (test code = MO%) 6.0 % 0.0-10.0 N EOSINOPHIL % (test code = EO%) 3.0 % 0.0-5.0 N BASOPHIL % (test code = BA%) 0.4 % 0.0-1.0 N NUCLEATED RBC % (test code = NRBC%) 0.0 % 0-0 N NEUTROPHIL # (test code = NT#) 9.91 K/mm3 1.8-7.7 H IMMATURE GRANULOCYTE # (test code = IG#) 0.06 x10 3/uL 0-0.03 H LYMPHOCYTE # (test code = LY#) 1.34 K/mm3 1.0-5.0 N MONOCYTE # (test code = MO#) 0.75 K/mm3 0-0.8 N EOSINOPHIL # (test code = EO#) 0.38 K/mm3 0.0-0.5 N BASOPHIL # (test code = BA#) 0.05 K/mm3 0.0-0.2 N NUCLEATED RBC # (test code = NRBC#) 0.00 K/mm3 0.0-0.1 N MANUAL DIFF REQUIRED (test code = MDIFF) NO, ONLY SCAN NEEDED DIFFERENTIAL [id number] 08:24:00* Test Item Value Reference Range Interpretation Comments STAIN ACCEPTABILITY (test code = STN ACCEPTABLE) CABOT RINGS (test code = CAB) MORPHOLOGY COMMENT (test code = MOC) PLATELET ESTIMATE (test code = PLTEST) PLATELET MORPHOLOGY (test code = PLTMORPH) LACTIC [id number] 17:46:00* Test Item Value Reference Range Interpretation Comments LACTIC ACID (test code = LACT) 1.7 mmol/L 0.4-1.9 N LACTIC [id number] 12:07:00* Test Item Value Reference Range Interpretation Comments LACTIC ACID (test code = LACT) 2.2 mmol/L 0.4-1.9 HH Results called to [id number] by CASSANDRA 02/18/20 1207Critical results verified and read back by Nurse? YES SPECIMEN COMMENTS: CODE SEPSISLACTIC [id number] 10:37:00* Test Item Value Reference Range Interpretation Comments LACTIC ACID (test code = LACT) 2.3 mmol/L 0.4-1.9 HH Results called to [id number] by CASSANDRA 02/18/20 1037Critical results verified and read back by Nurse? YES SPECIMEN COMMENTS: FOR CODE SEPSISCOMMENTS TO FUNCTIONAL CONSULTANT: TAKE BY 1047 COMPREHENSIVE METABOLIC [id number] 10:08:00* Test Item Value Reference Range Interpretation Comments SODIUM (test code = NA) 151 mmol/L 136-145 H POTASSIUM (test code = K) 4.2 mmol/L 3.5-5.1 N CHLORIDE (test code = CL) 115.0 mmol/L 98-107 H CARBON DIOXIDE (test code = CO2) 31.0 mmol/L 21-32 N ANION GAP (test code = GAP) 9.2 10-20 L GLUCOSE (test code = GLU) 150 mg/dL 74-106 H BLOOD UREA NITROGEN (test code = BUN) 21 mg/dL 7-18 H GLOMERULAR FILTRATION RATE (test code = GFR) > 60 mL/min >=60 Estimated GFR by using Modified MDRD formula.Chronic kidney disease is defined as either kidney damageor GFR <60 mL/min/1.73 m2 for >3 months. CREATININE (test code = CREAT) 0.60 mg/dL 0.7-1.3 L BUN/CREATININE RATIO (test code = BUN/CREA) 35.1 10-20 H TOTAL PROTEIN (test code = PROT) 8.0 gram/dL 6.4-8.2 N ALBUMIN (test code = ALB) 2.6 g/dL 3.4-5.0 L GLOBULIN (test code = GLOB) 5.4 gram/dL 2.7-4.2 H ALBUMIN/GLOBULIN RATIO (test code = A/G) 0.5 0.75-1.50 L CALCIUM (test code = CA) 9.0 mg/dL 8.5-10.1 N BILIRUBIN TOTAL (test code = BILT) 0.50 mg/dL 0.0-1.0 N SGOT/AST (test code = AST) 37 IUnit/L 15-37 N SGPT/ALT (test code = ALT) 46 IUnit/L 12-78 N ALKALINE PHOSPHATASE TOTAL (test code = ALKP) 191 IUnit/L 45-117 H Note change in reference range due to change in reagent. SPECIMEN COMMENTS: CODE [id number] 10:08:00* Test Item Value Reference Range Interpretation Comments PHOSPHORUS (test code = PHOS) 3.7 mg/dL 2.5-4.9 N SPECIMEN COMMENTS: CODE [id number] 10:08:00* Test Item Value Reference Range Interpretation Comments MAGNESIUM (test code = MAG) 2.5 mg/dL 1.8-2.4 H SPECIMEN COMMENTS: CODE [id number] 10:08:00* Test Item Value Reference Range Interpretation Comments CALCITONIN (test code = CALC) pgram/mL <11.6 SPECIMEN COMMENTS: CODE SEPSISCOMPREHENSIVE METABOLIC [id number] 09:53:00* Test Item Value Reference Range Interpretation Comments SODIUM (test code = NA) 151 mmol/L 136-145 H POTASSIUM (test code = K) 4.2 mmol/L 3.5-5.1 N CHLORIDE (test code = CL) 115.0 mmol/L 98-107 H CARBON DIOXIDE (test code [...] TOTAL (test code = ALKP) IUnit/L 45-117 SPECIMEN COMMENTS: CODE [id number] 09:53:00* Test Item Value Reference Range Interpretation Comments PHOSPHORUS (test code = PHOS) mg/dL 2.5-4.9 SPECIMEN COMMENTS: CODE [id number] 09:53:00* Test Item Value Reference Range Interpretation Comments MAGNESIUM (test code = MAG) mg/dL 1.8-2.4 SPECIMEN COMMENTS: CODE [id number] 09:53:00* Test Item Value Reference Range Interpretation Comments CALCITONIN (test code = CALC) pgram/mL <11.6 SPECIMEN COMMENTS: CODE SEPSIS- XR CHEST 1 [id number] 08:58:00 FAX: Abdi Abbott MD [phone] [place]: St: ADM Name: VANESSA ANDREA [facility] : [birth year] 73 Age/S: 44/M [address] [facility] Unit #: [id number] Loc: [id number].4036 [place] [address] Phys: Abdi Bethea MD Acct: [id number] Dis Date: Status: ADM IN PHONE #: [phone] Exam Date: 02/17/2020 0806 FAX #: [phone] Reason: pna EXAMS: CPT CODE: [id number] XR CHEST 1 V [id number] REASON FOR EXAM: pna Exam Order Date: 02/17/2020 5:00 AM Ordering M.DWilda: Abdi Bethea MD PROCEDURE: - XR CHEST 1 V COMPARISON: Chest x-ray February 14, 2020 FINDINGS: Interval developmen t of opacification of the right lung base which partly effaces the right h emidiaphragm. There is also mild subsegmental atelectasis in the left lung base. Cardiomediastinal silhouette is normal in size for techniqu e. The mediastinal contours are within normal limits. Degene rative changes are present in the spine. The visualized upper abdo men is within normal limits. IMPRESSION: Interva l development of opacities in the right lung base. These opacities may r epresent any combination of effusion, atelectasis, and pneumonia. There is also mild subsegmental atelectasis in the left lung base although sup erimposed consolidation in this area cannot be excluded. Location: [facility] 20 at 0858 Reported and signed by: John Hart MD CC: Abdi Bethea MD Technologist: KINGSTON MARCUS JR RT(R) Trnscrd Date/Time/By: 02/17/20 20 (857) : By: [email or web address] Orig Print D/T: S: 02/17/2020 (900) PAGE 1 Signed Report CBC W/AUTO [id number] 06:36:00* Test Item Value Reference Range Interpretation Comments WHITE BLOOD CELL (test code = WBC) 8.1 K/mm3 4.5-12.5 N RED BLOOD CELL (test code = RBC) 4.10 mill/mm3 4.0-5.8 N HEMOGLOBIN (test code = HGB) 12.3 gram/dL 13.0-17.5 L HEMATOCRIT (test code = HCT) 40.4 % 42.0-52.0 L MEAN CELL VOLUME (test code = MCV) 98.5 fL 80-98 H MEAN CELL HGB (test code = MCH) 30.0 picogram 27.0-33.0 N MEAN CELL HGB CONCETRATION (test code = MCHC) 30.4 gram/dL 33.0-36. 0 L RED CELL DISTRIBUTION WIDTH (test code = RDW) 16.4 % 11.6-16. 2 H RED CELL DISTRIBUTION WIDTH SD (test code = RDW-SD) 57.0 fL 37 .0-51.0 H PLATELET COUNT (test code = PLT) 90 K/mm3 150-450 L MEAN PLATELET VOLUME (test code = MPV) 13.4 fL 6.7-11.0 H NEUTROPHIL % (test code = NT%) 77.3 % 39.0-69.0 H IMMATURE GRANULOCYTE % (test code = IG%) 0.4 % 0.0-5.0 N LYMPHOCYTE % (test code = LY%) 11.1 % 25.0-55.0 L MONOCYTE % (test code = MO%) 10.1 % 0.0-10.0 H EOSINOPHIL % (test code = EO%) 0.7 % 0.0-5.0 N BASOPHIL % (test code = BA%) 0.4 % 0.0-1.0 N NUCLEATED RBC % (test code = NRBC%) 0.2 % 0-0 H NEUTROPHIL # (test code = NT#) 6.25 K/mm3 1.8-7.7 N IMMATURE GRANULOCYTE # (test code = IG#) 0.03 x10 3/uL 0-0.03 N LYMPHOCYTE # (test code = LY#) 0.90 K/mm3 1.0-5.0 L MONOCYTE # (test code = MO#) 0.82 K/mm3 0-0.8 H EOSINOPHIL # (test code = EO#) 0.06 K/mm3 0.0-0.5 N BASOPHIL # (test code = BA#) 0.03 K/mm3 0.0-0.2 N NUCLEATED RBC # (test code = NRBC#) 0.02 K/mm3 0.0-0.1 N MANUAL DIFF REQUIRED (test code = MDIFF) NO BASIC METABOLIC [id number] 06:22:00* Test Item Value Reference Range Interpretation Comments SODIUM (test code = NA) 149 mmol/L 136-145 H POTASSIUM (test code = K) 3.8 mmol/L 3.5-5.1 N CHLORIDE (test code = CL) 115.0 mmol/L 98-107 H CARBON DIOXIDE (test code = CO2) 28.0 mmol/L 21-32 N ANION GAP (test code = GAP) 9.8 10-20 L GLUCOSE (test code = GLU) 218 mg/dL 74-106 H BLOOD UREA NITROGEN (test code = BUN) 21 mg/dL 7-18 H GLOMERULAR FILTRATION RATE (test code = GFR) > 60 mL/min >=60 Estimated GFR by using Modified MDRD formula.Chronic kidney disease is defined as either kidney damageor GFR <60 mL/min/1.73 m2 for >3 months. CREATININE (test code = CREAT) 0.60 mg/dL 0.7-1.3 L BUN/CREATININE RATIO (test code = BUN/CREA) 36.0 10-20 H CALCIUM (test code = CA) 9.7 mg/dL 8.5-10.1 N CBC W/AUTO [id number] 08:30:00* Test Item Value Reference Range Interpretation Comments WHITE BLOOD CELL (test code = WBC) 8.0 K/mm3 4.5-12.5 N RED BLOOD CELL (test code = RBC) 4.37 mill/mm3 4.0-5.8 N HEMOGLOBIN (test code = HGB) 13.4 gram/dL 13.0-17.5 N HEMATOCRIT (test code = HCT) 42.9 % 42.0-52.0 N MEAN CELL VOLUME (test code = MCV) 98.2 fL 80-98 H MEAN CELL HGB (test code = MCH) 30.7 picogram 27.0-33.0 N MEAN CELL HGB CONCETRATION (test code = MCHC) 31.2 gram/dL 33.0-36. 0 L RED CELL DISTRIBUTION WIDTH (test code = RDW) 16.6 % 11.6-16. 2 H RED CELL DISTRIBUTION WIDTH SD (test code = RDW-SD) 57.1 fL 37 .0-51.0 H PLATELET COUNT (test code = PLT) 90 K/mm3 150-450 L MEAN PLATELET VOLUME (test code = MPV) 14.0 fL 6.7-11.0 H NEUTROPHIL % (test code = NT%) 74.9 % 39.0-69.0 H IMMATURE GRANULOCYTE % (test code = IG%) 0.4 % 0.0-5.0 N LYMPHOCYTE % (test code = LY%) 13.3 % 25.0-55.0 L MONOCYTE % (test code = MO%) 10.0 % 0.0-10.0 N EOSINOPHIL % (test code = EO%) 1.0 % 0.0-5.0 N BASOPHIL % (test code = BA%) 0.4 % 0.0-1.0 N NUCLEATED RBC % (test code = NRBC%) 0.3 % 0-0 H NEUTROPHIL # (test code = NT#) 5.98 K/mm3 1.8-7.7 N IMMATURE GRANULOCYTE # (test code = IG#) 0.03 x10 3/uL 0-0.03 N LYMPHOCYTE # (test code = LY#) 1.06 K/mm3 1.0-5.0 N MONOCYTE # (test code = MO#) 0.80 K/mm3 0-0.8 N EOSINOPHIL # (test code = EO#) 0.08 K/mm3 0.0-0.5 N BASOPHIL # (test code = BA#) 0.03 K/mm3 0.0-0.2 N NUCLEATED RBC # (test code = NRBC#) 0.02 K/mm3 0.0-0.1 N MANUAL DIFF REQUIRED (test code = MDIFF) NO, ONLY SCAN NEEDED DIFFERENTIAL [id number] 08:30:00* Test Item Value Reference Range Interpretation Comments STAIN ACCEPTABILITY (test code = STN ACCEPTABLE) STAIN ACCEPTABLE POLYCHROMASIA (test code = POLC) 1+ ANISOCYTOSIS (test code = ANISO) 1+ PLATELET ESTIMATE (test code = PLTEST) DECREASED PLATELET MORPHOLOGY (test code = PLTMORPH) NORMAL BASIC METABOLIC [id number] 08:23:00* Test Item Value Reference Range Interpretation Comments SODIUM (test code = NA) 149 mmol/L 136-145 H POTASSIUM (test code = K) 3.9 mmol/L 3.5-5.1 N CHLORIDE (test code = CL) 115.0 mmol/L 98-107 H CARBON DIOXIDE (test code = CO2) 29.0 mmol/L 21-32 N ANION GAP (test code = GAP) 8.9 10-20 L GLUCOSE (test code = GLU) 78 mg/dL 74-106 N BLOOD UREA NITROGEN (test code = BUN) 19 mg/dL 7-18 H GLOMERULAR FILTRATION RATE (test code = GFR) > 60 mL/min >=60 Estimated GFR by using Modified MDRD formula.Chronic kidney disease is defined as either kidney damageor GFR <60 mL/min/1.73 m2 for >3 months. CREATININE (test code = CREAT) 0.60 mg/dL 0.7-1.3 L BUN/CREATININE RATIO (test code = BUN/CREA) 31.7 10-20 H CALCIUM (test code = CA) 9.5 mg/dL 8.5-10.1 N BASIC METABOLIC [id number] 08:22:00* Test Item Value Reference Range Interpretation Comments SODIUM (test code = NA) 149 mmol/L 136-145 H POTASSIUM (test code = K) 3.9 mmol/L 3.5-5.1 N CHLORIDE (test code = CL) 115.0 mmol/L 98-107 H CARBON DIOXIDE (test code [...] code = CA) mg/dL 8.5-10.1 CBC W/AUTO [id number] 08:05:00* Test Item Value Reference Range Interpretation Comments WHITE BLOOD CELL (test code = WBC) 8.0 K/mm3 4.5-12.5 N RED BLOOD CELL (test code = RBC) 4.37 mill/mm3 4.0-5.8 N HEMOGLOBIN (test code = HGB) 13.4 gram/dL 13.0-17.5 N HEMATOCRIT (test code = HCT) 42.9 % 42.0-52.0 N MEAN CELL VOLUME (test code = MCV) 98.2 fL 80-98 H MEAN CELL HGB (test code = MCH) 30.7 picogram 27.0-33.0 N MEAN CELL HGB CONCETRATION (test code = MCHC) 31.2 gram/dL 33.0-36. 0 L RED CELL DISTRIBUTION WIDTH (test code = RDW) 16.6 % 11.6-16. 2 H RED CELL DISTRIBUTION WIDTH SD (test code = RDW-SD) 57.1 fL 37 .0-51.0 H PLATELET COUNT (test code = PLT) 90 K/mm3 150-450 L MEAN PLATELET VOLUME (test code = MPV) 14.0 fL 6.7-11.0 H NEUTROPHIL % (test code = NT%) 74.9 % 39.0-69.0 H IMMATURE GRANULOCYTE % (test code = IG%) 0.4 % 0.0-5.0 N LYMPHOCYTE % (test code = LY%) 13.3 % 25.0-55.0 L MONOCYTE % (test code = MO%) 10.0 % 0.0-10.0 N EOSINOPHIL % (test code = EO%) 1.0 % 0.0-5.0 N BASOPHIL % (test code = BA%) 0.4 % 0.0-1.0 N NUCLEATED RBC % (test code = NRBC%) 0.3 % 0-0 H NEUTROPHIL # (test code = NT#) 5.98 K/mm3 1.8-7.7 N IMMATURE GRANULOCYTE # (test code = IG#) 0.03 x10 3/uL 0-0.03 N LYMPHOCYTE # (test code = LY#) 1.06 K/mm3 1.0-5.0 N MONOCYTE # (test code = MO#) 0.80 K/mm3 0-0.8 N EOSINOPHIL # (test code = EO#) 0.08 K/mm3 0.0-0.5 N BASOPHIL # (test code = BA#) 0.03 K/mm3 0.0-0.2 N NUCLEATED RBC # (test code = NRBC#) 0.02 K/mm3 0.0-0.1 N MANUAL DIFF REQUIRED (test code = MDIFF) NO, ONLY SCAN NEEDED DIFFERENTIAL [id number] 08:05:00* Test Item Value Reference Range Interpretation Comments STAIN ACCEPTABILITY (test code = STN ACCEPTABLE) CABOT RINGS (test code = CAB) MORPHOLOGY COMMENT (test code = MOC) PLATELET ESTIMATE (test code = PLTEST) PLATELET MORPHOLOGY (test code = PLTMORPH) CBC W/AUTO [id number] 08:05:00* Test Item Value Reference Range Interpretation Comments WHITE BLOOD CELL (test code = WBC) 8.0 K/mm3 4.5-12.5 N RED BLOOD CELL (test code = RBC) 4.37 mill/mm3 4.0-5.8 N HEMOGLOBIN (test code = HGB) 13.4 gram/dL 13.0-17.5 N HEMATOCRIT (test code = HCT) 42.9 % 42.0-52.0 N MEAN CELL VOLUME (test code = MCV) 98.2 fL 80-98 H MEAN CELL HGB (test code = MCH) 30.7 picogram 27.0-33.0 N MEAN CELL HGB CONCETRATION (test code = MCHC) 31.2 gram/dL 33.0-36. 0 L RED CELL DISTRIBUTION WIDTH (test code = RDW) 16.6 % 11.6-16. 2 H RED CELL DISTRIBUTION WIDTH SD (test code = RDW-SD) 57.1 fL 37 .0-51.0 H PLATELET COUNT (test code = PLT) 90 K/mm3 150-450 L MEAN PLATELET VOLUME (test code = MPV) 14.0 fL 6.7-11.0 H NEUTROPHIL % (test code = NT%) 74.9 % 39.0-69.0 H IMMATURE GRANULOCYTE % (test code = IG%) 0.4 % 0.0-5.0 N LYMPHOCYTE % (test code = LY%) 13.3 % 25.0-55.0 L MONOCYTE % (test code = MO%) 10.0 % 0.0-10.0 N EOSINOPHIL % (test code = EO%) 1.0 % 0.0-5.0 N BASOPHIL % (test code = BA%) 0.4 % 0.0-1.0 N NUCLEATED RBC % (test code = NRBC%) 0.3 % 0-0 H NEUTROPHIL # (test code = NT#) 5.98 K/mm3 1.8-7.7 N IMMATURE GRANULOCYTE # (test code = IG#) 0.03 x10 3/uL 0-0.03 N LYMPHOCYTE # (test code = LY#) 1.06 K/mm3 1.0-5.0 N MONOCYTE # (test code = MO#) 0.80 K/mm3 0-0.8 N EOSINOPHIL # (test code = EO#) 0.08 K/mm3 0.0-0.5 N BASOPHIL # (test code = BA#) 0.03 K/mm3 0.0-0.2 N NUCLEATED RBC # (test code = NRBC#) 0.02 K/mm3 0.0-0.1 N MANUAL DIFF REQUIRED (test code = MDIFF) NO, ONLY SCAN NEEDED DIFFERENTIAL [id number] 08:05:00* Test Item Value Reference Range Interpretation Comments STAIN ACCEPTABILITY (test code = STN ACCEPTABLE) MORPHOLOGY COMMENT (test code = MOC) PLATELET ESTIMATE (test code = PLTEST) PLATELET MORPHOLOGY (test code = PLTMORPH) CBC W/AUTO [id number] 08:04:00* Test Item Value Reference Range Interpretation Comments WHITE BLOOD CELL (test code = WBC) 8.0 K/mm3 4.5-12.5 N RED BLOOD CELL (test code = RBC) 4.37 mill/mm3 4.0-5.8 N HEMOGLOBIN (test code = HGB) 13.4 gram/dL 13.0-17.5 N HEMATOCRIT (test code = HCT) 42.9 % 42.0-52.0 N MEAN CELL VOLUME (test code = MCV) 98.2 fL 80-98 H MEAN CELL HGB (test code = MCH) 30.7 picogram 27.0-33.0 N MEAN CELL HGB CONCETRATION (test code = MCHC) 31.2 gram/dL 33.0-36. 0 L RED CELL DISTRIBUTION WIDTH (test code = RDW) 16.6 % 11.6-16. 2 H RED CELL DISTRIBUTION WIDTH SD (test code = RDW-SD) 57.1 fL 37 .0-51.0 H PLATELET COUNT (test code = PLT) 90 K/mm3 150-450 L MEAN PLATELET VOLUME (test code = MPV) 14.0 fL 6.7-11.0 H NEUTROPHIL % (test code = NT%) 74.9 % 39.0-69.0 H IMMATURE GRANULOCYTE % (test code = IG%) 0.4 % 0.0-5.0 N LYMPHOCYTE % (test code = LY%) 13.3 % 25.0-55.0 L MONOCYTE % (test code = MO%) 10.0 % 0.0-10.0 N EOSINOPHIL % (test code = EO%) 1.0 % 0.0-5.0 N BASOPHIL % (test code = BA%) 0.4 % 0.0-1.0 N NUCLEATED RBC % (test code = NRBC%) 0.3 % 0-0 H NEUTROPHIL # (test code = NT#) 5.98 K/mm3 1.8-7.7 N IMMATURE GRANULOCYTE # (test code = IG#) 0.03 x10 3/uL 0-0.03 N LYMPHOCYTE # (test code = LY#) 1.06 K/mm3 1.0-5.0 N MONOCYTE # (test code = MO#) 0.80 K/mm3 0-0.8 N EOSINOPHIL # (test code = EO#) 0.08 K/mm3 0.0-0.5 N BASOPHIL # (test code = BA#) 0.03 K/mm3 0.0-0.2 N NUCLEATED RBC # (test code = NRBC#) 0.02 K/mm3 0.0-0.1 N MANUAL DIFF REQUIRED (test code = MDIFF) NO, ONLY SCAN NEEDED DIFFERENTIAL [id number] 08:04:00* Test Item Value Reference Range Interpretation Comments STAIN ACCEPTABILITY (test code = STN ACCEPTABLE) CABOT RINGS (test code = CAB) MORPHOLOGY COMMENT (test code = MOC) PLATELET ESTIMATE (test code = PLTEST) PLATELET MORPHOLOGY (test code = PLTMORPH) CBC W/AUTO [id number] 08:04:00* Test Item Value Reference Range Interpretation Comments WHITE BLOOD CELL (test code = WBC) 8.0 K/mm3 4.5-12.5 N RED BLOOD CELL (test code = RBC) 4.37 mill/mm3 4.0-5.8 N HEMOGLOBIN (test code = HGB) 13.4 gram/dL 13.0-17.5 N HEMATOCRIT (test code = HCT) 42.9 % 42.0-52.0 N MEAN CELL VOLUME (test code = MCV) 98.2 fL 80-98 H MEAN CELL HGB (test code = MCH) 30.7 picogram 27.0-33.0 N MEAN CELL HGB CONCETRATION (test code = MCHC) 31.2 gram/dL 33.0-36. 0 L RED CELL DISTRIBUTION WIDTH (test code = RDW) 16.6 % 11.6-16. 2 H RED CELL DISTRIBUTION WIDTH SD (test code = RDW-SD) 57.1 fL 37 .0-51.0 H PLATELET COUNT (test code = PLT) 90 K/mm3 150-450 L MEAN PLATELET VOLUME (test code = MPV) 14.0 fL 6.7-11.0 H NEUTROPHIL % (test code = NT%) 74.9 % 39.0-69.0 H IMMATURE GRANULOCYTE % (test code = IG%) 0.4 % 0.0-5.0 N LYMPHOCYTE % (test code = LY%) 13.3 % 25.0-55.0 L MONOCYTE % (test code = MO%) 10.0 % 0.0-10.0 N EOSINOPHIL % (test code = EO%) 1.0 % 0.0-5.0 N BASOPHIL % (test code = BA%) 0.4 % 0.0-1.0 N NUCLEATED RBC % (test code = NRBC%) 0.3 % 0-0 H NEUTROPHIL # (test code = NT#) 5.98 K/mm3 1.8-7.7 N IMMATURE GRANULOCYTE # (test code = IG#) 0.03 x10 3/uL 0-0.03 N LYMPHOCYTE # (test code = LY#) 1.06 K/mm3 1.0-5.0 N MONOCYTE # (test code = MO#) 0.80 K/mm3 0-0.8 N EOSINOPHIL # (test code = EO#) 0.08 K/mm3 0.0-0.5 N BASOPHIL # (test code = BA#) 0.03 K/mm3 0.0-0.2 N NUCLEATED RBC # (test code = NRBC#) 0.02 K/mm3 0.0-0.1 N MANUAL DIFF REQUIRED (test code = MDIFF) NO, ONLY SCAN NEEDED DIFFERENTIAL [id number] 08:04:00* Test Item Value Reference Range Interpretation Comments STAIN ACCEPTABILITY (test code = STN ACCEPTABLE) CABOT RINGS (test code = CAB) MORPHOLOGY COMMENT (test code = MOC) PLATELET ESTIMATE (test code = PLTEST) PLATELET MORPHOLOGY (test code = PLTMORPH) [id number] 20:49:00* Test Item Value Reference Range Interpretation Comments GLUBED (test code = GLUBED) 92 mg/dL 74-106 N Performed by certified stripper machine operator at [facility] Coronavirus 2019 [id number] 19:44:00* Test Item Value Reference Range Interpretation Comments Coronavirus 2019 Confirmation (test code = [id number]) Negative Negative Coronavirus 2019 [id number] 19:44:00* Test Item Value Reference Range Interpretation Comments Coronavirus 2019 Confirmation (test code = [id number]) Negative Negative LACTIC [id number] 04:04:00* Test Item Value Reference Range Interpretation Comments LACTIC ACID (test code = LACT) 1.3 mmol/L 0.4-1.9 N COVID 19 INHOUSE [id number] 23:13:00* Test Item Value Reference Range Interpretation Comments COVID 19 INHOUSE AG (test code = [id number]) NEGATIVE B-TYPE NATRIURETIC [id number] 22:04:00* Test Item Value Reference Range Interpretation Comments B-TYPE NATRIURETIC PEPTIDE (test code = BNP) 13.19 pgram/mL 0-100 N CBC W/MANUAL [id number] 21:56:00* Test Item Value Reference Range Interpretation Comments WHITE BLOOD CELL (test code = WBC) 7.9 K/mm3 4.5-12.5 N RED BLOOD CELL (test code = RBC) 4.58 mill/mm3 4.0-5.8 N HEMOGLOBIN (test code = HGB) 13.9 gram/dL 13.0-17.5 N HEMATOCRIT (test code = HCT) 44.0 % 42.0-52.0 N MEAN CELL VOLUME (test code = MCV) 96.1 fL 80-98 N MEAN CELL HGB (test code = MCH) 30.3 picogram 27.0-33.0 N MEAN CELL HGB CONCETRATION (test code = MCHC) 31.6 gram/dL 33.0-36. 0 L RED CELL DISTRIBUTION WIDTH (test code = RDW) 15.9 % 11.6-16. 2 N RED CELL DISTRIBUTION WIDTH SD (test code = RDW-SD) 52.6 fL 37 .0-51.0 H PLATELET COUNT (test code = PLT) 73 K/mm3 150-450 L MEAN PLATELET VOLUME (test code = MPV) 14.9 fL 6.7-11.0 H IMMATURE GRANULOCYTE % (test code = IG%) 0.5 % 0.0-5.0 N NUCLEATED RBC % (test code = NRBC%) 0.5 % 0-0 H NEUTROPHIL # (test code = NT#) 6.52 K/mm3 1.8-7.7 N IMMATURE GRANULOCYTE # (test code = IG#) 0.04 x10 3/uL 0-0.03 H LYMPHOCYTE # (test code = LY#) 0.59 K/mm3 1.0-5.0 L MONOCYTE # (test code = MO#) 0.61 K/mm3 0-0.8 N EOSINOPHIL # (test code = EO#) 0.14 K/mm3 0.0-0.5 N BASOPHIL # (test code = BA#) 0.03 K/mm3 0.0-0.2 N NUCLEATED RBC # (test code = NRBC#) 0.04 K/mm3 0.0-0.1 N MANUAL DIFF REQUIRED (test code = MDIFF) YES STAIN ACCEPTABILITY (test code = STN ACCEPTABLE) STAIN ACCEPTABLE TOTAL CELLS COUNTED (test code = TCC) 105 #CELLS SEGMENTED NEUTROPHILS (test code = SEG) 69.5 % 39-69 H BAND NEUTROPHIL (test code = BAND) 19.0 % 0-10 H LYMPHOCYTE (test code = LYMPH) 4.8 % 25-55 L REACTIVE LYMPH (test code = RELYMPH) 0 % MONOCYTE (test code = MON) 6.7 % 0-10 N EOSINOPHIL (test code = EOS) 0 % 0.0-5.0 N BASOPHIL (test code = BASO) 0 % 0-1.0 N METAMYELOCYTE (test code = META) 0 % 0-0 N MYELOCYTE (test code = MYELO) 0 % 0.0-0.0 N PROMYELOCYTE (test code = PROM) 0 % 0-0 N POLYCHROMASIA (test code = POLC) 1+ POIKILOCYTOSIS (test code = POIK) 1+ TEAR DROP CELLS (test code = TEAR) 1+ PLATELET ESTIMATE (test code = PLTEST) DECREASED PLATELET MORPHOLOGY (test code = PLTMORPH) NORMAL IMMATURE FORMS (test code = IMMAT) 0 % 0-0 N URINALYSIS [id number] 21:54:00* Test Item Value Reference Range Interpretation Comments UA COLOR (test code = COLU) YELLOW YELLOW UA APPEARANCE (test code = APPU) Cloudy CLEAR A UA GLUCOSE DIPSTICK (test code = DGLUU) NEGATIVE mg/dL NEGATIVE UA BILIRUBIN DIPSTICK (test code = BILU) NEGATIVE mg/dL NEGATIVE UA KETONE DIPSTICK (test code = KETU) NEGATIVE mg/dL NEGATIVE UA SPECIFIC GRAVITY (test code = SGU) 1.025 1.001-1.035 UA BLOOD DIPSTICK (test code = LANDEN) Negative mg/dL NEGATIVE UA PH DIPSTICK (test code = WALTER) 8.0 5.0-8.0 UA PROTEIN DIPSTICK (test code = PROU) 20 (Trace) mg/dL NEGATIVE A UA UROBILINIOGEN DIPSTICK (test code = URO) 2.0 (1+) mg/dL NEGATIVE A UA NITRITE DIPSTICK (test code = YEYO) NEGATIVE NEGATIVE UA LEUKOCYTE ESTERASE W REFLEX (test code = LEUUR) 25 Rafael/uL (Trace) Rafael/uL NEGATIVE A UA WBC (test code = WBCU) 11-20 per HPF 0-5 A UA RBC (test code = RBCU) 6-10 #/HPF 0-5 A UA EPITHELIAL CELLS (test code = EPIU) FEW per HPF FEW UA BACTERIA (test code = BACU) FEW #/HPF NONE A UA HYALINE CAST (test code = HYALU) 0-2 #/LPF 0-5 UA MUCUS (test code = MUCU) FEW #/LPF FEW Urine Source? Clean CatchBASIC METABOLIC [id number] 21:48:00* Test Item Value Reference Range Interpretation Comments SODIUM (test code = NA) 148 mmol/L 136-145 H POTASSIUM (test code = K) 3.6 mmol/L 3.5-5.1 N CHLORIDE (test code = CL) 110.0 mmol/L 98-107 H CARBON DIOXIDE (test code = CO2) 33.0 mmol/L 21-32 H ANION GAP (test code = GAP) 8.6 10-20 L GLUCOSE (test code = GLU) 143 mg/dL 74-106 H BLOOD UREA NITROGEN (test code = BUN) 26 mg/dL 7-18 H GLOMERULAR FILTRATION RATE (test code = GFR) > 60 mL/min >=60 Estimated GFR by using Modified MDRD formula.Chronic kidney disease is defined as either kidney damageor GFR <60 mL/min/1.73 m2 for >3 months. CREATININE (test code = CREAT) 0.60 mg/dL 0.7-1.3 L BUN/CREATININE RATIO (test code = BUN/CREA) 46.1 10-20 H CALCIUM (test code = CA) 9.8 mg/dL 8.5-10.1 N HEPATIC FUNCTION [id number] 21:48:00* Test Item Value Reference Range Interpretation Comments TOTAL PROTEIN (test code = PROT) 7.9 gram/dL 6.4-8.2 N ALBUMIN (test code = ALB) 2.8 g/dL 3.4-5.0 L GLOBULIN (test code = GLOB) 5.1 gram/dL 2.7-4.2 H ALBUMIN/GLOBULIN RATIO (test code = A/G) 0.5 0.75-1.50 L BILIRUBIN TOTAL (test code = BILT) 0.50 mg/dL 0.0-1.0 N BILIRUBIN DIRECT (test code = BILD) 0.20 mg/dL 0.0-0.20 N SGOT/AST (test code = AST) 16 IUnit/L 15-37 N SGPT/ALT (test code = ALT) 47 IUnit/L 12-78 N ALKALINE PHOSPHATASE TOTAL (test code = ALKP) 219 IUnit/L 45-117 H Note change in reference range due to change in reagent. [id number] 21:48:00* Test Item Value Reference Range Interpretation Comments LIPASE (test code = LIP) 299 U/L 73.0-393.0 N [id number] 21:48:00* Test Item Value Reference Range Interpretation Comments TROPONIN-I (test code = TROPI) <0.015 ng/mL 0-0.045 N LACTIC [id number] 21:48:00* Test Item Value Reference Range Interpretation Comments LACTIC ACID (test code = LACT) 1.5 mmol/L 0.4-1.9 N BASIC METABOLIC [id number] 21:41:00* Test Item Value Reference Range Interpretation Comments SODIUM (test code = NA) 148 mmol/L 136-145 H POTASSIUM (test code = K) 3.6 mmol/L [...] code = CA) mg/dL 8.5-10.1 HEPATIC FUNCTION [id number] 21:41:00* Test Item Value Reference Range Interpretation Comments [...] TOTAL (test code = ALKP) IUnit/L 45-117 [id number] 21:41:00* Test Item Value Reference Range Interpretation Comments LIPASE (test code = LIP) U/L 73.0-393.0 [id number] 21:41:00* Test Item Value Reference Range Interpretation Comments TROPONIN-I (test code = TROPI) ng/mL 0-0.045 PROTHROMBIN [id number] 21:39:00* Test Item Value Reference Range Interpretation Comments PROTHROMBIN TIME PATIENT (test code = PTP) 11.7 seconds 9.0-14.0 N INTERNATIONAL NORMAL RATIO (test code = INR) 1.0 0.8-1.2 N The therapeutic range for oral [...] (2.5-3.5) IS PATIENT ON ANTICOAGULANTS? NTHROMBOPLASTIN TIME [id number] 21:39:00* Test Item Value Reference Range Interpretation Comments THROMBOPLASTIN TIME PARTIAL (test code = PTT) 44.9 seconds 23.0-37. 0 H IS PATIENT ON ANTICOAGULANTS? NCBC W/MANUAL [id number] 21:28:00* Test Item Value Reference Range Interpretation Comments WHITE BLOOD CELL (test code = WBC) 7.9 K/mm3 4.5-12.5 N RED BLOOD CELL (test code = RBC) 4.58 mill/mm3 4.0-5.8 N HEMOGLOBIN (test code = HGB) 13.9 gram/dL 13.0-17.5 N HEMATOCRIT (test code = HCT) 44.0 % 42.0-52.0 N MEAN CELL VOLUME (test code = MCV) 96.1 fL 80-98 N MEAN CELL HGB (test code = MCH) 30.3 picogram 27.0-33.0 N MEAN CELL HGB CONCETRATION (test code = MCHC) 31.6 gram/dL 33.0-36. 0 L RED CELL DISTRIBUTION WIDTH (test code = RDW) 15.9 % 11.6-16. 2 N RED CELL DISTRIBUTION WIDTH SD (test code = RDW-SD) 52.6 fL 37 .0-51.0 H PLATELET COUNT (test code = PLT) 73 K/mm3 150-450 L MEAN PLATELET VOLUME (test code = MPV) 14.9 fL 6.7-11.0 H IMMATURE GRANULOCYTE % (test code = IG%) 0.5 % 0.0-5.0 N NUCLEATED RBC % (test code = NRBC%) 0.5 % 0-0 H NEUTROPHIL # (test code = NT#) 6.52 K/mm3 1.8-7.7 N IMMATURE GRANULOCYTE # (test code = IG#) 0.04 x10 3/uL 0-0.03 H LYMPHOCYTE # (test code = LY#) 0.59 K/mm3 1.0-5.0 L MONOCYTE # (test code = MO#) 0.61 K/mm3 0-0.8 N EOSINOPHIL # (test code = EO#) 0.14 K/mm3 0.0-0.5 N BASOPHIL # (test code = BA#) 0.03 K/mm3 0.0-0.2 N NUCLEATED RBC # (test code = NRBC#) 0.04 K/mm3 0.0-0.1 N MANUAL DIFF REQUIRED (test code = MDIFF) YES STAIN ACCEPTABILITY (test code = STN ACCEPTABLE) TOTAL CELLS COUNTED (test code = TCC) #CELLS SEGMENTED NEUTROPHILS (test code = SEG) % 39-69 LYMPHOCYTE (test code = LYMPH) % 25-55 MONOCYTE (test code = MON) % 0-10 EOSINOPHIL (test code = EOS) % 0.0-5.0 CABOT RINGS (test code = CAB) MORPHOLOGY COMMENT (test code = MOC) PLATELET ESTIMATE (test code = PLTEST) PLATELET MORPHOLOGY (test code = PLTMORPH) CBC W/MANUAL [id number] 21:28:00* Test Item Value Reference Range Interpretation Comments WHITE BLOOD CELL (test code = WBC) 7.9 K/mm3 4.5-12.5 N RED BLOOD CELL (test code = RBC) 4.58 mill/mm3 4.0-5.8 N HEMOGLOBIN (test code = HGB) 13.9 gram/dL 13.0-17.5 N HEMATOCRIT (test code = HCT) 44.0 % 42.0-52.0 N MEAN CELL VOLUME (test code = MCV) 96.1 fL 80-98 N MEAN CELL HGB (test code = MCH) 30.3 picogram 27.0-33.0 N MEAN CELL HGB CONCETRATION (test code = MCHC) 31.6 gram/dL 33.0-36. 0 L RED CELL DISTRIBUTION WIDTH (test code = RDW) 15.9 % 11.6-16. 2 N RED CELL DISTRIBUTION WIDTH SD (test code = RDW-SD) 52.6 fL 37 .0-51.0 H PLATELET COUNT (test code = PLT) 73 K/mm3 150-450 L MEAN PLATELET VOLUME (test code = MPV) 14.9 fL 6.7-11.0 H IMMATURE GRANULOCYTE % (test code = IG%) 0.5 % 0.0-5.0 N NUCLEATED RBC % (test code = NRBC%) 0.5 % 0-0 H NEUTROPHIL # (test code = NT#) 6.52 K/mm3 1.8-7.7 N IMMATURE GRANULOCYTE # (test code = IG#) 0.04 x10 3/uL 0-0.03 H LYMPHOCYTE # (test code = LY#) 0.59 K/mm3 1.0-5.0 L MONOCYTE # (test code = MO#) 0.61 K/mm3 0-0.8 N EOSINOPHIL # (test code = EO#) 0.14 K/mm3 0.0-0.5 N BASOPHIL # (test code = BA#) 0.03 K/mm3 0.0-0.2 N NUCLEATED RBC # (test code = NRBC#) 0.04 K/mm3 0.0-0.1 N MANUAL DIFF REQUIRED (test code = MDIFF) YES STAIN ACCEPTABILITY (test code = STN ACCEPTABLE) TOTAL CELLS COUNTED (test code = TCC) #CELLS SEGMENTED NEUTROPHILS (test code = SEG) % 39-69 LYMPHOCYTE (test code = LYMPH) % 25-55 MONOCYTE (test code = MON) % 0-10 EOSINOPHIL (test code = EOS) % 0.0-5.0 CABOT RINGS (test code = CAB) MORPHOLOGY COMMENT (test code = MOC) PLATELET ESTIMATE (test code = PLTEST) PLATELET MORPHOLOGY (test code = PLTMORPH) CBC W/MANUAL [id number] 21:28:00* Test Item Value Reference Range Interpretation Comments WHITE BLOOD CELL (test code = WBC) 7.9 K/mm3 4.5-12.5 N RED BLOOD CELL (test code = RBC) 4.58 mill/mm3 4.0-5.8 N HEMOGLOBIN (test code = HGB) 13.9 gram/dL 13.0-17.5 N HEMATOCRIT (test code = HCT) 44.0 % 42.0-52.0 N MEAN CELL VOLUME (test code = MCV) 96.1 fL 80-98 N MEAN CELL HGB (test code = MCH) 30.3 picogram 27.0-33.0 N MEAN CELL HGB CONCETRATION (test code = MCHC) 31.6 gram/dL 33.0-36. 0 L RED CELL DISTRIBUTION WIDTH (test code = RDW) 15.9 % 11.6-16. 2 N RED CELL DISTRIBUTION WIDTH SD (test code = RDW-SD) 52.6 fL 37 .0-51.0 H PLATELET COUNT (test code = PLT) 73 K/mm3 150-450 L MEAN PLATELET VOLUME (test code = MPV) 14.9 fL 6.7-11.0 H IMMATURE GRANULOCYTE % (test code = IG%) 0.5 % 0.0-5.0 N NUCLEATED RBC % (test code = NRBC%) 0.5 % 0-0 H NEUTROPHIL # (test code = NT#) 6.52 K/mm3 1.8-7.7 N IMMATURE GRANULOCYTE # (test code = IG#) 0.04 x10 3/uL 0-0.03 H LYMPHOCYTE # (test code = LY#) 0.59 K/mm3 1.0-5.0 L MONOCYTE # (test code = MO#) 0.61 K/mm3 0-0.8 N EOSINOPHIL # (test code = EO#) 0.14 K/mm3 0.0-0.5 N BASOPHIL # (test code = BA#) 0.03 K/mm3 0.0-0.2 N NUCLEATED RBC # (test code = NRBC#) 0.04 K/mm3 0.0-0.1 N MANUAL DIFF REQUIRED (test code = MDIFF) YES STAIN ACCEPTABILITY (test code = STN ACCEPTABLE) TOTAL CELLS COUNTED (test code = TCC) #CELLS SEGMENTED NEUTROPHILS (test code = SEG) % 39-69 LYMPHOCYTE (test code = LYMPH) % 25-55 MONOCYTE (test code = MON) % 0-10 EOSINOPHIL (test code = EOS) % 0.0-5.0 MORPHOLOGY COMMENT (test code = MOC) PLATELET ESTIMATE (test code = PLTEST) PLATELET MORPHOLOGY (test code = PLTMORPH) CBC W/MANUAL [id number] 21:28:00* Test Item Value Reference Range Interpretation Comments WHITE BLOOD CELL (test code = WBC) 7.9 K/mm3 4.5-12.5 N RED BLOOD CELL (test code = RBC) 4.58 mill/mm3 4.0-5.8 N HEMOGLOBIN (test code = HGB) 13.9 gram/dL 13.0-17.5 N HEMATOCRIT (test code = HCT) 44.0 % 42.0-52.0 N MEAN CELL VOLUME (test code = MCV) 96.1 fL 80-98 N MEAN CELL HGB (test code = MCH) 30.3 picogram 27.0-33.0 N MEAN CELL HGB CONCETRATION (test code = MCHC) 31.6 gram/dL 33.0-36. 0 L RED CELL DISTRIBUTION WIDTH (test code = RDW) 15.9 % 11.6-16. 2 N RED CELL DISTRIBUTION WIDTH SD (test code = RDW-SD) 52.6 fL 37 .0-51.0 H PLATELET COUNT (test code = PLT) 73 K/mm3 150-450 L MEAN PLATELET VOLUME (test code = MPV) 14.9 fL 6.7-11.0 H IMMATURE GRANULOCYTE % (test code = IG%) 0.5 % 0.0-5.0 N NUCLEATED RBC % (test code = NRBC%) 0.5 % 0-0 H NEUTROPHIL # (test code = NT#) 6.52 K/mm3 1.8-7.7 N IMMATURE GRANULOCYTE # (test code = IG#) 0.04 x10 3/uL 0-0.03 H LYMPHOCYTE # (test code = LY#) 0.59 K/mm3 1.0-5.0 L MONOCYTE # (test code = MO#) 0.61 K/mm3 0-0.8 N EOSINOPHIL # (test code = EO#) 0.14 K/mm3 0.0-0.5 N BASOPHIL # (test code = BA#) 0.03 K/mm3 0.0-0.2 N NUCLEATED RBC # (test code = NRBC#) 0.04 K/mm3 0.0-0.1 N MANUAL DIFF REQUIRED (test code = MDIFF) YES STAIN ACCEPTABILITY (test code = STN ACCEPTABLE) TOTAL CELLS COUNTED (test code = TCC) #CELLS SEGMENTED NEUTROPHILS (test code = SEG) % 39-69 LYMPHOCYTE (test code = LYMPH) % 25-55 MONOCYTE (test code = MON) % 0-10 MORPHOLOGY COMMENT (test code = MOC) PLATELET ESTIMATE (test code = PLTEST) PLATELET MORPHOLOGY (test code = PLTMORPH) CBC W/MANUAL [id number] 21:28:00* Test Item Value Reference Range Interpretation Comments WHITE BLOOD CELL (test code = WBC) 7.9 K/mm3 4.5-12.5 N RED BLOOD CELL (test code = RBC) 4.58 mill/mm3 4.0-5.8 N HEMOGLOBIN (test code = HGB) 13.9 gram/dL 13.0-17.5 N HEMATOCRIT (test code = HCT) 44.0 % 42.0-52.0 N MEAN CELL VOLUME (test code = MCV) 96.1 fL 80-98 N MEAN CELL HGB (test code = MCH) 30.3 picogram 27.0-33.0 N MEAN CELL HGB CONCETRATION (test code = MCHC) 31.6 gram/dL 33.0-36. 0 L RED CELL DISTRIBUTION WIDTH (test code = RDW) 15.9 % 11.6-16. 2 N RED CELL DISTRIBUTION WIDTH SD (test code = RDW-SD) 52.6 fL 37 .0-51.0 H PLATELET COUNT (test code = PLT) 73 K/mm3 150-450 L MEAN PLATELET VOLUME (test code = MPV) 14.9 fL 6.7-11.0 H IMMATURE GRANULOCYTE % (test code = IG%) 0.5 % 0.0-5.0 N NUCLEATED RBC % (test code = NRBC%) 0.5 % 0-0 H NEUTROPHIL # (test code = NT#) 6.52 K/mm3 1.8-7.7 N IMMATURE GRANULOCYTE # (test code = IG#) 0.04 x10 3/uL 0-0.03 H LYMPHOCYTE # (test code = LY#) 0.59 K/mm3 1.0-5.0 L MONOCYTE # (test code = MO#) 0.61 K/mm3 0-0.8 N EOSINOPHIL # (test code = EO#) 0.14 K/mm3 0.0-0.5 N BASOPHIL # (test code = BA#) 0.03 K/mm3 0.0-0.2 N NUCLEATED RBC # (test code = NRBC#) 0.04 K/mm3 0.0-0.1 N MANUAL DIFF REQUIRED (test code = MDIFF) YES STAIN ACCEPTABILITY (test code = STN ACCEPTABLE) TOTAL CELLS COUNTED (test code = TCC) #CELLS SEGMENTED NEUTROPHILS (test code = SEG) % 39-69 LYMPHOCYTE (test code = LYMPH) % 25-55 MONOCYTE (test code = MON) % 0-10 EOSINOPHIL (test code = EOS) % 0.0-5.0 CABOT RINGS (test code = CAB) MORPHOLOGY COMMENT (test code = MOC) PLATELET ESTIMATE (test code = PLTEST) PLATELET MORPHOLOGY (test code = PLTMORPH) - XR CHEST 1 [id number] 21:13:00 FAX: Narayan Kapoor DO [phone] [place]: B St: REG Name: VANESSA [facility]RE[facility] : [birth year] Age/S: 44/M [address] Unit #: [id number] Loc: [place] [address] Phys: Narayan Colbert DO Acct: [id number] Dis Date: Status: REG ER PHONE #: [phone] Exam Date: 02/14/20202058 FAX #: [phone] Reason: CODE SEPSIS EXAMS: CPT CODE: [id number] XR CHEST 1 V 53807 EXAM: Chest x-ray, one view; INFORMATION: Code sepsis; lethargic; vomiting; FINDINGS: Patchy infiltrative changes in the medial basilar portions of both l ower lobes and prominent right hilum. No evidence of pleural effusion; no pneumothorax. Unremarkable cardiomediastinal silhouette. I MPRESSION: Bilateral lower lobe infiltrates and right hilar adenopathy. Location code: [facility] at 2112 Reported and signed by: Delbert House M.D. CC: Narayan Colbert echnologist: KARIN MALDONADO Trnscrd Date /Time/By: 02/14/2020 (2112) : By: WillGRW Orig Print D/T: S: 020 (2115) PAGE 1 Signed Report - CONT INJ TEOFILO/ RISSA/ MEGAN/ [id number] 22:01:00 FAX: Jose Jacinto MD [place]: B St: REG Name: VANESSA ANDREA [facility] : [birth year] Age/S: 44/M [address] Unit #: [id number] Loc: [place] [address] Phys: Jose Jacinto MD Acct: [id number] Dis Date: Status: REG ER PHONE #: [phone] Exam Date: 02/03/20202156 FAX #: [phone] Reason: Feeding tube replacement EXAMS: CPT CODE: [id number] CONT INJ GS/ DU/ JJ/ G G 66710 REASON FOR EXAM: Feeding tube repl acement EXAM ORDER DATE: 02/03/2020 9:27 PM Attending MJohny: Jsoe Jacinto MD PROCEDURE: - CONT INJ GS/ DU/ JJ/ GG Location:[facility] COMPARISON: FINDINGS: 2 views of the a bdomen obtained at 9:40 PM. The precipitation equipment tender radiograph shows unremarkable small bowel. Gastrografin injected through the existing G-tube shows opacifica tion of the stomach and small bowel without evidence of extravasation IMPRESSION: No evidence of extravasation at 2200 Reported an d signed by: Hugo Sahu M.D. CC: Jose Jacinto MD Technologist: KARIN MALDONADO; ANGELES MCGHEE, RT(R) Trnscrd Date/Time/By: 02/03/2020 (2200) : By: MeraL Orig Print D/T: S: 02/03/2020 (2203) PAGE 1 Signed Report - CONT INJ GS/ DU/ JJ/ [id number] 09:02:00 FAX: Marcelina Younger DO [place]: B St: REG Name: VANESSA ANDREA [facility] : [birth year] Age/S: 44/M [address] Unit #: [id number] Loc: [place] [address] Phys: Marcelina Younger DO Acct: [id number] Dis Date: Status: REG ER PHONE #: [phone] Exam Date: 02/01/2020 0855 FAX #: [phone] Reason: peg tube replacement EXAMS: CPT CODE: [id number] CONT INJ GS/ DU/ JJ/ G G 86582 HISTORY: peg tube replacement TECHNIQUE: AP abdomen x-ray COMPARISON: Abdominal rad iograph earlier today at 12:31 AM FINDINGS/ IMPRESSION: Contrast administered through the percutaneous gastrostomy tub e opacifies the stomach lumen with no intraperitoneal extravasation of contrast to suggest leak. Remaining findings are unchan ged. Location: [facility] at 0902 Reported and signed by: Tatyana Hart MD CC: Marcelina Younger DO Technologist: Glenis Rodriguez RT(R); KINGSTON MARCUS JR RT(R) Trnscrd Date/Time/By: 02/01/2020 (901) : By: [email or web address] [facility] D/T: S: 02/01/2020 (05) PAGE 1 Signed Report - CONT INJ GS/ DU/ JJ/ GG 2020-02-01 00:47:00 FAX: Lynn Cook [phone] [place]: St: REG Name: VANESSA ANDREA [facility] : [birth year] Age/S: 44/M [address] [facility] Unit #: [id number] Loc: [place] [address] Phys: Lynn Arora Acct: [id number] Dis Date: Status: REG ER PHONE #: [phone] Exam Date: 02/01/2020 0040 FAX #: [phone] Reason: G TUBE PLACMENT EXAMS: CPT CODE: [id number] CONT INJ GS/ DU/ JJ/ G G 62658 HISTORY: G-tube placement Lo cation: C3 FINDINGS: Images of the abdomen were obtained be fore and after contrast was administered through gastrostomy tube. Contra st is seen in the stomach and proximal small bowel. No evidence of obstru ction or extravasation. IMPRESSION: 1. G astrostomy tube noted within the stomach. at 0047 Reported and jared d by: Jabari Perez MD CC: Lynn Arora MD Technologist: Luna Edmondson Trnscrd Date/Time/By: 02/01/2020 (004) : By: [email or web address] Orig Print D/T: S: 02/01/2020 (005) PAGE 1 Signed Report - CONT INJ GS/ DU/ JJ/ [id number] 01:47:00 FAX: Marcelina Younger DO [place]: St: REG Name: VANESSA ANDREA [facility] : [birth year] Age/S: 44/M [address] [facility] Unit #: [id number] Loc: [place] [address] Phys: Marcelina Younger DO Acct: [id number] Dis Date: Status: REG ER PHONE #: [phone] Exam Date: 01/25/2020 0140 FAX #: [phone] Reason: peg tube placement EXAMS: CPT CODE: [id number] CONT INJ GS/ DU/ JJ/ G G 74260 AFTER HOURS SERVICE AT: 01/25/2020 1:46 AM Abdomen, 2 Supine View Location Code M12 History: peg tube placement Findings: There is a PEG tube in the abdomen. There is intraluminal contrast aft er subsequent injection of contrast through the PEG tube. There is no defi nite extraluminal contrast collection. The bowel gas pattern appe ars nonspecific. IMPRESSION: PEG tube conf irmed in the stomach. at 0147 Reported and signed by: Ava Durham M.D. CC: Marcelina Younger hnologist: Luna Radfordrd Date/T ailyn/By: 01/25/2020 (0147) : By: [email or web address] Orig Print D/T: S: 0 (4085) PAGE 1 Signed Report ABDOMEN-1VIEW (KUB)2020-01-24 09:51:00 [place] [address] Patient Name: VANESSA KHOURY MR #: [id number] : 1975 Age/Sex: 44/M Req #: [id number] Adm Physician: Ordered by: JOSE FROST MD Report #: [id number] Location: ER Room/Bed: Procedure: [id number] DX/ABDOMEN-1VIEW (KUB) Exam Date: 01/24/20 Exam Time: 919 REPORT STATUS: Signed Abdomen, one view ( KUB) INDICATION: REPLACED G-TUBE [id number] Comparison: N one available. Discussion: Gastrografin was injected via the indwelling gastrostomy catheter prior to imaging. A precipitation equipment tender image was not obtained. G astrostomy tube is noted with contrast injection via the indwelling tube. Cont rast is noted within the gastric fundus outlining the gastric folds. No extral uminal contrast is identified. Visualized bowel loops are not dilated. Large amount of stool is noted projecting over the rectum concerning for constipati on/impaction. Negative for acute osseous abnormality. IMPRESSION: In tragastric position of the gastrostomy catheter with opacification of the monisha cedric fundus. Large amount of stool is noted at the level of the rectum concerni ng for constipation/impaction. Signed by: Sean Brooks MD on 01/24/2020 9: 53 AM Dictated By: SEAN BROOKS MD 2 Transcribed By: SARAH on 01/24/20952 COPY TO: JOSE FROST MD BASIC METABOLIC [id number] 22:26:00* Test Item Value Reference Range Interpretation Comments [...] CA) 10.2 mg/dL 8.5-10.1 H BASIC METABOLIC [id number] 22:24:00* Test Item Value Reference Range Interpretation [...] CA) 10.2 mg/dL 8.5-10.1 H CBC W/AUTO [id number] 22:18:00* Test Item Value Reference Range Interpretation [...] code = NRBC#) 0.00 K/mm3 0.0-0.1 N [id number] 00:53:00* Test Item Value Reference Range Interpretation Comments GLUBED (test code = GLUBED) 78 mg/dL 74-106 N Performed by certified stripper machine operator at [facility] - CONT INJ GS/ DU/ JJ/ [id number] 23:55:00 FAX: Lisa Singh [phone] [place]: St: REG Name: VANESSA ANDREA [facility] : [birth year] Age/S: 44/M [address] [facility] Unit #: [id number] [place]: [place] [address] Phys: Lisa An Acct: [id number] Dis Date: Status: REG ER PHONE #: [phone] Exam Date: 12/11/2019 4866 FAX #: [phone] Reason: PEG replacement EXAMS: CPT CODE: [id number] CONT INJ GS/ DU/ JJ/ G G 37442 DICTATION LOCATION: [facility] HISTORY: Male, 44 years of age with PEG replacement EXAM: TWO VIEWS OF THE ABDOMEN COMPARISON: 11/24/2019 FIND INGS: 2 sequential frontal views of the abdomen are provided, the 1st imag e being a precipitation equipment tender and the 2nd image after contrast has been injected into th e patient's gastrostomy tube. Injected contrast resides in the s tomach lumen indicating that the gastrostomy tube is in satisfactory posit ion. No extravasation of contrast into peritoneal cavity. IMPRESSION: Gastrostomy tube is in satisfactory position. Electro nically Signed by Toya Casey MD on 12/11/2019 at 7632 Reported and signed by: Toya Casey MD CC: Sherice An MD Technologist: Luna Edmondson Trntxrd Date/Time/By: 12/11/2019 (5078) : By: WillCLW Orig Print D/T: S: 12/11/2019 (3472) PAGE 1 Signed Report [id number] 23:24:00* Test Item Value Reference Range Interpretation Comments GLUBED (test code = GLUBED) 71 mg/dL 74-106 L Performed by certified stripper machine operator at [facility] Fluoroscopic procedure less than one hour gspdzwty3137-47-19 14:00:00* Test Item Value Reference Range Interpretation Comments Lactic Acid Level (test code = Lactic Acid Level) 1.7 mmol/L 0.5- 2.0 [facility] snrqubj2295-65-87 14:00:00* Test Item Value Reference Range Interpretation Comments Blood Culture (test code = 44143131) NO GROWTH AFTER 5 DAYS, FINAL REPORT [facility] LancasterFluoroscopic procedure less than one hour pgghbuvd3555-55-05 14:00:00* Test Item Value Reference Range Interpretation Comments Lactic Acid Level (test code = Lactic Acid Level) 1.7 mmol/L 0.5- 2.0 [facility] kfnvhli8575-63-72 14:00:00* Test Item Value Reference Range Interpretation Comments Blood Culture (test code = 76820135) NO GROWTH AFTER 5 DAYS, FINAL REPORT [facility]Fluor[facility] procedure less than one hour qvkglakv4234-82-41 14:00:00* Test Item Value Reference Range Interpretation Comments Lactic Acid Level (test code = Lactic Acid Level) 1.7 mmol/L 0.5- 2.0 [facility] axnevur0180-96-51 14:00:00* Test Item Value Reference Range Interpretation Comments Blood Culture (test code = 79054613) NO GROWTH AFTER 5 DAYS, FINAL REPORT [facility]Flu[facility] procedure less than one hour xsohrcsi8001-36-57 14:00:00* Test Item Value Reference Range Interpretation Comments Lactic Acid Level (test code = Lactic Acid Level) 1.7 mmol/L 0.5- 2.0 [facility] xnwzonm8191-99-10 14:00:00* Test Item Value Reference Range Interpretation Comments Blood Culture (test code = 68688488) NO GROWTH AFTER 5 DAYS, FINAL REPORT [facility]Flu[facility] procedure less than one hour lgsnqobc8080-90-87 14:00:00* Test Item Value Reference Range Interpretation Comments Lactic Acid Level (test code = Lactic Acid Level) 1.7 mmol/L 0.5- 2.0 [facility] bjbpxse2344-28-62 14:00:00* Test Item Value Reference Range Interpretation Comments Blood Culture (test code = 44378779) NO GROWTH AFTER 5 DAYS, FINAL REPORT [facility] ([facility])2019-12-02 13:50:00 [place] [address] Patient Name: VANESSA KHOURY MR #: [id number] : 1975 Age/Sex: 44/M Req #: [id number] Adm Physician: Ordered by: RAJAN JASON MD Report #: [id number] Location: ER Room/Bed: Procedure: DX/CHEST SINGLE ( PORTABLE) Exam Date: 12/02/19 Exam Time: 1308 REPORT STATUS: Signed EXAMINATION: CH EST SINGLE (PORTABLE) INDICATION: Sepsis COMPARISON: Chest radiogr aph 08/14/2019 FINDINGS: LINES/TUBES:EKG leads overlie the chest. LUNGS:The lungs are moderately inflated. Mild bibasilar patchy opacities. PLEURA:No pleural effusion or pneumothorax. MEDIASTINUM:The cardiomedias tinal silhouette appears normal in size and shape. BONES/SOFT TISSUES:No ac paxton osseous injury. ABDOMEN:No free air under the diaphragm. IMPRES CHARLI: Mild bibasilar patchy opacities may represent atelectasis however super imposed pneumonia should be excluded clinically. Signed by: Jam Lee on 12/02/2019 1:52 PM Dictated By: CHRIS ALLISON MD 1352 Transcribed By: SARAH on 12/02/19 1352 COPY TO: RAJAN JASON MD Bacterial urine [id number] 13:42:00 * Test Item Value Reference Range Interpretation Comments Urine Culture (test code = 630-4) ENTEROCOCCUS FAECALIS [facility] urine yqozgqw6683-19-93 13:42:00* Test Item Value Reference Range Interpretation Comments Urine Culture (test code = 630-4) ENTEROCOCCUS FAECALIS [facility] urine rzguhld2569-28-20 13:42:00* Test Item Value Reference Range Interpretation Comments Urine Culture (test code = 630-4) ENTEROCOCCUS FAECALIS [facility] LancasterBacterial urine rrktwhi2870-08-47 13:42:00* Test Item Value Reference Range Interpretation Comments Urine Culture (test code = 630-4) ENTEROCOCCUS FAECALIS [facility] urine ovddnxd2472-34-26 13:42:00* Test Item Value Reference Range Interpretation Comments Urine Culture (test code = 630-4) ENTEROCOCCUS FAECALIS [facility]Blood leukocytes automated count (number/volume)2019-12-02 13:40:00* Test Item Value Reference Range Interpretation Comments White Blood Count (test code = 6690-2) 5.19 10*3/uL 4.8-10.8 [facility] erythrocytes automated count (number/volume)2019-12-02 13:40:00* Test Item Value Reference Range Interpretation Comments Red Blood Count (test code = 789-8) 4.39 10*6/mL 4.3-5.7 [facility] hemoglobin measurement (moles/volume)2019-12-02 13:40:00* Test Item Value Reference Range Interpretation Comments Hemoglobin (test code = 85810-1) 12.6 g/dL 14.0-18.0 [facility] LancasterAutomated blood hematocrit (volume fraction)2019-12-02 13:40:00* Test Item Value Reference Range Interpretation Comments Hematocrit (test code = 4544-3) 43.1 % 38.2-49.6 [facility] LancasterAutom[facility] erythrocyte mean corpuscular pdpqlb8932-59-34 13:40:00* Test Item Value Reference Range Interpretation Comments Mean Corpuscular Volume (test code = 787-2) 98.2 81-99 [facility] LancasterAutom[facility] erythrocyte mean corpuscular hemoglobin (mass per erythrocyte)2019-12-02 13:40:00* Test Item Value Reference Range Interpretation Comments Mean Corpuscular Hemoglobin (test code = 785-6) 28.7 pg 28-32 [facility] LancasterAutomated erythrocyte mean corpuscular hemoglobin concentration measurement (mass/volume)2019-12-02 13:40:00* Test Item Value Reference Range Interpretation Comments Mean Corpuscular Hemoglobin Concent (test code = 786-4) 29.2 g/dL 31-35 [facility] LancasterRDW PnkGr-Dlr2733-78-24 13:40:00* Test Item Value Reference Range Interpretation Comments Red Cell Distribution Width (test code = 84772-6) 13.4 % 11.7 -14.4 [facility] LancasterAutom[facility] blood platelet count (count/volume)2019-12-02 13:40:00* Test Item Value Reference Range Interpretation Comments Platelet Count (test code = 777-3) 69 10*3/uL 140-360 [facility] LancasterAutomated blood segmented neutrophil count as percentage of total lrnlhtxtzz8315-13-52 13:40:00* Test Item Value Reference Range Interpretation Comments Neutrophils (%) (Auto) (test code = 06939-3) 61.1 % 38.7-80.0 [facility] LancasterAutomated blood lymphocyte count as percentage ot total kfmswucous5504-94-32 13:40:00* Test Item Value Reference Range Interpretation Comments Lymphocytes (%) (Auto) (test code = 736-9) 28.7 % 18.0-39.1 [facility] LancasterAutomated blood monocyte count as percentage of total kjjsaxrtdf2191-44-04 13:40:00* Test Item Value Reference Range Interpretation Comments Monocytes (%) (Auto) (test code = 5905-5) 9.4 % 4.4-11.3 [facility] as percentage of total tovuiylzgy4693-16-20 13:40:00* Test Item Value Reference Range Interpretation Comments Eosinophils (%) (Auto) (test code = 713-8) 0.2 % 0.0-6.0 [facility] LancasterAutom[facility] blood basophil count as percentage of total cawyoybxay0162-35-38 13:40:00* Test Item Value Reference Range Interpretation Comments Basophils (%) (Auto) (test code = 706-2) 0.2 % 0.0-1.0 [facility] LancasterFluoroscopic procedure less than one hour zdrzdouc1226-67-70 13:40:00* Test Item Value Reference Range Interpretation Comments IM GRANULOCYTES % (test code = IM GRANULOCYTES %) 0.4 % 0.0- 1.0 [facility] LancasterAutomated blood neutrophil count 2019-12-02 13:40:00* Test Item Value Reference Range Interpretation Comments Neutrophils # (Auto) (test code = 751-8) 3.2 2.1-6.9 [facility] LancasterBlood lymphocytes count (number/volume) 2019-12-02 13:40:00* Test Item Value Reference Range Interpretation Comments Lymphocytes # (Auto) (test code = 33378-2) 1.5 1.0-3.2 [facility] LancasterBlood monocytes automated count (number/volume)2019-12-02 13:40:00* Test Item Value Reference Range Interpretation Comments Monocytes # (Auto) (test code = 742-7) 0.5 0.2-0.8 [facility] LancasterAutomated blood eosinophil count 2019-12-02 13:40:00* Test Item Value Reference Range Interpretation Comments Eosinophils # (Auto) (test code = 711-2) 0.0 0.0-0.4 [facility] LancasterAutomated blood basophil count (count/volume)2019-12-02 13:40:00* Test Item Value Reference Range Interpretation Comments Basophils # (Auto) (test code = 704-7) 0.0 0.0-0.1 [facility] LancasterFluoroscopic procedure less than one hour gmiwtmie6313-93-40 13:40:00* Test Item Value Reference Range Interpretation Comments Absolute Immature Granulocyte (auto (mabel t code = Absolute Immature Granulocyte (auto) 0.02 10*3/uL 0-0.1 [facility] LancasterProthrombin time (PT) in platelet poor plasma by coagulation xemkw9246-07-47 13:40:00* Test Item Value Reference Range Interpretation Comments Prothrombin Time (test code = 5902-2) 13.9 s 11.9-14.5 [facility] LancasterINR in Platelet poor plasma by Coagulation wdnlm4367-29-91 13:40:00* Test Item Value Reference Range Interpretation Comments Prothromb Time International Ratio (test code = 6301-6) 1.02 Oral Anticoagulant Therapy INR Values:1. Low Intensity Therapy 1.5 - 2.02 . Moderate Intensity Therapy 2.0 - 3.03. High Intensity Therapy(1) 2.5 - 3. 54. High Intensity Therapy(2) 3.0 - 4.05. Panic Value INR > 5.0 [facility] LancasterActivated partial thromboplastin time (aPTT) in platelet poor plasma by coagulation sratn5910-71-81 13:40:00* Test Item Value Reference Range Interpretation Comments Activated Partial Thromboplast Time (test code = 59929-0) 33.3 s 23.8-35.5 [facility] LancasterUrine color ydgajqdcxavij0838-65-72 13:40:00* Test Item Value Reference Range Interpretation Comments Urine Color (test code = 5778-6) STRAW YELLOW [facility] LancasterUrine estyamr9651-69-01 13:40:00* Test Item Value Reference Range Interpretation Comments Urine Clarity (test code = 19843-8) SL CLOUDY CLEAR [facility] gravity of Urine by Test strip 2019-12-02 13:40:00* Test Item Value Reference Range Interpretation Comments Urine Specific [place] (test code = 5811-5) 1.020 1.010-1.02 5 [facility] LancasterUrine pH measurement by automated test ecvah5330-14-20 13:40:00* Test Item Value Reference Range Interpretation Comments Urine pH (test code = 75050-2) 5.5 5-7 [facility] LancasterUrine leukocyte esterase detection by hvnwhakx3997-03-17 13:40:00* Test Item Value Reference Range Interpretation Comments Urine Leukocyte Esterase (test code = 5799-2) NEGATIVE NEGATIVE [facility] LancasterUrine nitrite cqkzizjvw7777-56-01 13:40:00* Test Item Value Reference Range Interpretation Comments Urine Nitrite (test code = 02773-9) NEGATIVE NEGATIVE [facility] LancasterUrine protein measurement by test strip (mass/volume)2019-12-02 13:40:00* Test Item Value Reference Range Interpretation Comments Urine Protein (test code = 5804-0) 2+ NEGATIVE [facility] LancasterUrine glucose cjpclwnec0326-94-31 13:40:00* Test Item Value Reference Range Interpretation Comments Urine Glucose (UA) (test code = 2349-9) NEGATIVE NEGATIVE [facility] LancasterUrine ketones detection by automated test rkelj4132-11-52 13:40:00* Test Item Value Reference Range Interpretation Comments Urine Ketones (test code = 74111-3) NEGATIVE NEGATIVE [facility] LancasterUrine urobilinogen measurement by test strip (mass/volume)2019-12-02 13:40:00* Test Item Value Reference Range Interpretation Comments Urine Urobilinogen (test code = 58634-1) 1 mg/dL 0.2-1 [facility] LancasterUrine total bilirubin measurement (mass/volume)2019-12-02 13:40:00* Test Item Value Reference Range Interpretation Comments Urine Bilirubin (test code = 1978-6) NEGATIVE NEGATIVE [facility] LancasterUrine erythrocytes obrpxhxvi1484-25-41 13:40:00* Test Item Value Reference Range Interpretation Comments Urine Blood (test code = 40664-2) MODERATE NEGATIVE [facility] LancasterAutomated urine sediment leukocyte count by microscopy (number/high power field)2019-12-02 13:40:00* Test Item Value Reference Range Interpretation Comments Urine WBC (test code = 5821-4) NONE /[HPF] 0-5 [facility] LancasterErythrocytes detection in urine sediment by light ysuygohovb5505-12-79 13:40:00* Test Item Value Reference Range Interpretation Comments Urine RBC (test code = 22802-3) 6-10 /[HPF] 0-5 [facility] LancasterBacteria detection in urine sediment by light vlniqpzxgc3680-36-91 13:40:00* Test Item Value Reference Range Interpretation Comments Urine Bacteria (test code = 12376-3) MODERATE /[HPF] NONE [facility] LancasterEpithelial cells detection in urine sediment by light eiheviazzy1051-77-50 13:40:00* Test Item Value Reference Range Interpretation Comments Urine Epithelial Cells (test code = 75925-7) FEW /[LPF] NONE [facility] Centererum or plasma sodium measurement (moles/volume)2019-12-02 13:40:00* Test Item Value Reference Range Interpretation Comments Sodium Level (test code = 2951-2) 160 mmol/L 136-145 [facility] Centererum or plasma potassium measurement (moles/volume)2019-12-02 13:40:00* Test Item Value Reference Range Interpretation Comments Potassium Level (test code = 2823-3) 4.6 mmol/L 3.5-5.1 [facility] Centererum or plasma chloride measurement (moles/volume)2019-12-02 13:40:00* Test Item Value Reference Range Interpretation Comments Chloride Level (test code = 2075-0) 121 mmol/L 98-107 [facility] Centererum or plasma carbon dioxide, total measurement (moles/volume)2019-12-02 13:40:00* Test Item Value Reference Range Interpretation Comments Carbon Dioxide Level (test code = 2028-9) 29 mmol/L 22-29 [facility] Centererum or plasma anion rzd9964-25-66 13:40:00* Test Item Value Reference Range Interpretation Comments Anion Gap (test code = 09150-9) 14.6 mmol/L 8-16 [facility] Centererum or plasma urea nitrogen measurement (mass/volume)2019-12-02 13:40:00* Test Item Value Reference Range Interpretation Comments Blood Urea Nitrogen (test code = 3094-0) 34 mg/dL 7- [facility] Centererum or plasma creatinine measurement (mass/volume)2019-12-02 13:40:00* Test Item Value Reference Range Interpretation Comments Creatinine (test code = 2160-0) 0.70 mg/dL 0.72-1.25 [facility] Centererum or plasma urea nitrogen/creatinine mass gegwc5107-13-27 13:40:00* Test Item Value Reference Range Interpretation Comments BUN/Creatinine Ratio (test code = 3097-3) 49 6-25 [facility] LancasterEstimated glomerular filtration rate (GFR) pldkcxdybgkon1464-24-70 13:40:00* Test Item Value Reference Range Interpretation Comments Estimat Glomerular Filtration Rate (test code = 303291469) > 60 mL/ min >60 Ranges were taken from the National Kidney Disease Education Program and the [facility] literature.Reference ranges:60 or greater: Hpueki65-65 ( for 3 consecutive months): Chronic kidney disease 15 or less: Kidney failureCrescent Medical Center LancasterGlucose kiqiwwvmdti1004-18-31 13:40:00* Test Item Value Reference Range Interpretation Comments Glucose Level (test code = JOQ0959) 104 mg/dL 74-118 [facility] Centererum or plasma calcium measurement (mass/volume)2019-12-02 13:40:00* Test Item Value Reference Range Interpretation Comments Calcium Level (test code = 60154-4) 8.6 mg/dL 8.4-10.2 [facility] Centererum or plasma total bilirubin measurement (mass/volume)2019-12-02 13:40:00* Test Item Value Reference Range Interpretation Comments Total Bilirubin (test code = 1975-2) 0.4 mg/dL 0.2-1.2 [facility] LancasterFluoroscopic procedure less than one hour jpconycm8997-68-70 13:40:00* Test Item Value Reference Range Interpretation Comments Aspartate Amino Transf (AST/SGOT) (test code = Aspartate Amino Transf (AST/SGOT)) 61 [IU]/L 5-34 [facility] Centererum or plasma alanine aminotransferase measurement (enzymatic activity/volume)2019-12-02 13:40:00* Test Item Value Reference Range Interpretation Comments Alanine Aminotransferase (ALT/SGPT) (test code = 1742-6) 67 [IU]/L 0-55 [facility] Centererum or plasma protein measurement (mass/volume)2019-12-02 13:40:00* Test Item Value Reference Range Interpretation Comments Total Protein (test code = 2885-2) 7.9 g/dL 6.5-8.1 [facility] Centererum or plasma albumin measurement (mass/volume)2019-12-02 13:40:00* Test Item Value Reference Range Interpretation Comments Albumin (test code = 1751-7) 2.9 g/dL 3.5-5.0 [facility] LancasterPlasma globulin measurement (mass/volume) 2019-12-02 13:40:00* Test Item Value Reference Range Interpretation Comments Globulin (test code = 86139-6) 5.0 g/dL 2.3-3.5 [facility] Centererum or plasma albumin/globulin mass yhqmv4670-58-59 13:40:00* Test Item Value Reference Range Interpretation Comments Albumin/Globulin Ratio (test code = 1759-0) 0.6 0.8-2.0 [facility] Centererum or plasma alkaline phosphatase measurement (enzymatic activity/volume)2019-12-02 13:40:00* Test Item Value Reference Range Interpretation Comments Alkaline Phosphatase (test code = 6768-6) 117 [IU]/L 40-150 [facility] Centererum or plasma creatine kinase measurement (enzymatic activity/volume)2019-12-02 13:40:00* Test Item Value Reference Range Interpretation Comments Creatine Kinase (test code = 2157-6) 47 [IU]/L 30-200 [facility] Centererum or plasma creatine kinase MB measurement (mass/volume)2019-12-02 13:40:00* Test Item Value Reference Range Interpretation Comments Creatine Kinase MB (test code = 45571-0) 0.60 ng/mL 0-5.0 [facility] LancasterTroponin I measurement by highly sensitive enzyme gdvuuhwjvwr9820-67-40 13:40:00* Test Item Value Reference Range Interpretation Comments Troponin I (test code = 97567-6) 0.002 ng/mL 0-0.300 [facility] leukocytes automated count (number/volume)2019-12-02 13:40:00* Test Item Value Reference Range Interpretation Comments White Blood Count (test code = 6690-2) 5.19 10*3/uL 4.8-10.8 [facility] erythrocytes automated count (number/volume)2019-12-02 13:40:00* Test Item Value Reference Range Interpretation Comments Red Blood Count (test code = 789-8) 4.39 10*6/mL 4.3-5.7 [facility] hemoglobin measurement (moles/volume)2019-12-02 13:40:00* Test Item Value Reference Range Interpretation Comments Hemoglobin (test code = 20540-6) 12.6 g/dL 14.0-18.0 [facility] LancasterAutomated blood hematocrit (volume fraction)2019-12-02 13:40:00* Test Item Value Reference Range Interpretation Comments Hematocrit (test code = 4544-3) 43.1 % 38.2-49.6 [facility] LancasterAutomated erythrocyte mean corpuscular ebwznz6973-36-16 13:40:00* Test Item Value Reference Range Interpretation Comments Mean Corpuscular Volume (test code = 787-2) 98.2 81-99 [facility] LancasterAutomated erythrocyte mean corpuscular hemoglobin (mass per erythrocyte)2019-12-02 13:40:00* Test Item Value Reference Range Interpretation Comments Mean Corpuscular Hemoglobin (test code = 785-6) 28.7 pg 28-32 [facility] LancasterAutomated erythrocyte mean corpuscular hemoglobin concentration measurement (mass/volume)2019-12-02 13:40:00* Test Item Value Reference Range Interpretation Comments Mean Corpuscular Hemoglobin Concent (test code = 786-4) 29.2 g/dL 31-35 [facility] LancasterRDW QxwYg-Mpa7536-47-24 13:40:00* Test Item Value Reference Range Interpretation Comments Red Cell Distribution Width (test code = 55114-3) 13.4 % 11.7 -14.4 [facility] LancasterAutblowing rock hospitaled blood platelet count (count/volume)2019-12-02 13:40:00* Test Item Value Reference Range Interpretation Comments Platelet Count (test code = 777-3) 69 10*3/uL 140-360 [facility] LancasterAutblowing rock hospitaled blood segmented neutrophil count as percentage of total vchssecdbx5423-85-36 13:40:00* Test Item Value Reference Range Interpretation Comments Neutrophils (%) (Auto) (test code = 74699-0) 61.1 % 38.7-80.0 [facility] blood lymphocyte count as percentage ot total kjqboyldhc5225-83-73 13:40:00* Test Item Value Reference Range Interpretation Comments Lymphocytes (%) (Auto) (test code = 736-9) 28.7 % 18.0-39.1 [facility] LancasterAutom[facility] blood monocyte count as percentage of total znzysyhuii5250-92-85 13:40:00* Test Item Value Reference Range Interpretation Comments Monocytes (%) (Auto) (test code = 5905-5) 9.4 % 4.4-11.3 [facility] eosin[facility] count as percentage of total rqrsufueej1727-91-96 13:40:00* Test Item Value Reference Range Interpretation Comments Eosinophils (%) (Auto) (test code = 713-8) 0.2 % 0.0-6.0 [facility] LancasterAutomated blood basophil count as percentage of total eceuswuusc4568-31-11 13:40:00* Test Item Value Reference Range Interpretation Comments Basophils (%) (Auto) (test code = 706-2) 0.2 % 0.0-1.0 [facility] LancasterFluoroscopic procedure less than one hour quaupdlo1589-39-49 13:40:00* Test Item Value Reference Range Interpretation Comments IM GRANULOCYTES % (test code = IM GRANULOCYTES %) 0.4 % 0.0- 1.0 [facility] LancasterAutomated blood neutrophil count 2019-12-02 13:40:00* Test Item Value Reference Range Interpretation Comments Neutrophils # (Auto) (test code = 751-8) 3.2 2.1-6.9 [facility] LancasterBlood lymphocytes count (number/volume) 2019-12-02 13:40:00* Test Item Value Reference Range Interpretation Comments Lymphocytes # (Auto) (test code = 14317-5) 1.5 1.0-3.2 [facility] LancasterBlood monocytes automated count (number/volume)2019-12-02 13:40:00* Test Item Value Reference Range Interpretation Comments Monocytes # (Auto) (test code = 742-7) 0.5 0.2-0.8 [facility] LancasterAutomated blood eosinophil count 2019-12-02 13:40:00* Test Item Value Reference Range Interpretation Comments Eosinophils # (Auto) (test code = 711-2) 0.0 0.0-0.4 [facility] LancasterAutomated blood basophil count (count/volume)2019-12-02 13:40:00* Test Item Value Reference Range Interpretation Comments Basophils # (Auto) (test code = 704-7) 0.0 0.0-0.1 [facility] LancasterFluoroscopic procedure less than one hour werwvjit7887-26-29 13:40:00* Test Item Value Reference Range Interpretation Comments Absolute Immature Granulocyte (auto (mabel t code = Absolute Immature Granulocyte (auto) 0.02 10*3/uL 0-0.1 [facility] LancasterProthrombin time (PT) in platelet poor plasma by coagulation wnsbb0363-36-55 13:40:00* Test Item Value Reference Range Interpretation Comments Prothrombin Time (test code = 5902-2) 13.9 s 11.9-14.5 [facility] LancasterINR in Platelet poor plasma by Coagulation mmztv9751-80-71 13:40:00* Test Item Value Reference Range Interpretation Comments Prothromb Time International Ratio (test code = 6301-6) 1.02 Oral Anticoagulant Therapy INR Values:1. Low Intensity Therapy 1.5 - 2.02 . Moderate Intensity Therapy 2.0 - 3.03. High Intensity Therapy(1) 2.5 - 3. 54. High Intensity Therapy(2) 3.0 - 4.05. Panic Value INR > 5.0 [facility] LancasterActivated partial thromboplastin time (aPTT) in platelet poor plasma by coagulation bcscs8303-41-50 13:40:00* Test Item Value Reference Range Interpretation Comments Activated Partial Thromboplast Time (test code = 82938-2) 33.3 s 23.8-35.5 [facility] LancasterUrine color ygrvfackextow1626-75-36 13:40:00* Test Item Value Reference Range Interpretation Comments Urine Color (test code = 5778-6) STRAW YELLOW [facility] LancasterUrine yniooiu6677-70-65 13:40:00* Test Item Value Reference Range Interpretation Comments Urine Clarity (test code = 27143-6) SL CLOUDY [facility]AR [facility] by Test strip 2019-12-02 13:40:00* Test Item Value Reference Range Interpretation Comments Urine Specific Perley (test code = 5811-5) 1.020 1.010-1.02 5 [facility] LancasterUrine pH measurement by automated test nirzy9494-99-30 13:40:00* Test Item Value Reference Range Interpretation Comments Urine pH (test code = 83807-3) 5.5 5-7 [facility] LancasterUrine leukocyte esterase detection by jlyynwah5699-56-22 13:40:00* Test Item Value Reference Range Interpretation Comments Urine Leukocyte Esterase (test code = 5799-2) NEGATIVE NEGATIVE [facility] LancasterUrine nitrite yqbiprhmw0209-41-51 13:40:00* Test Item Value Reference Range Interpretation Comments Urine Nitrite (test code = 86011-8) NEGATIVE NEGATIVE [facility] LancasterUrine protein measurement by test strip (mass/volume)2019-12-02 13:40:00* Test Item Value Reference Range Interpretation Comments Urine Protein (test code = 5804-0) 2+ NEGATIVE [facility] LancasterUrine glucose isojzxfjt3940-13-95 13:40:00* Test Item Value Reference Range Interpretation Comments Urine Glucose (UA) (test code = 2349-9) NEGATIVE NEGATIVE [facility] LancasterUrine ketones detection by automated test adljc1650-28-66 13:40:00* Test Item Value Reference Range Interpretation Comments Urine Ketones (test code = 96126-3) NEGATIVE NEGATIVE [facility] LancasterUrine urobilinogen measurement by test strip (mass/volume)2019-12-02 13:40:00* Test Item Value Reference Range Interpretation Comments Urine Urobilinogen (test code = 99629-4) 1 mg/dL 0.2-1 [facility] LancasterUrine total bilirubin measurement (mass/volume)2019-12-02 13:40:00* Test Item Value Reference Range Interpretation Comments Urine Bilirubin (test code = 1978-6) NEGATIVE NEGATIVE [facility] LancasterUrine erythrocytes uygpzhbcj3291-00-29 13:40:00* Test Item Value Reference Range Interpretation Comments Urine Blood (test code = 81605-8) MODERATE NEGATIVE [facility] LancasterAutomated urine sediment leukocyte count by microscopy (number/high power field)2019-12-02 13:40:00* Test Item Value Reference Range Interpretation Comments Urine WBC (test code = 5821-4) NONE /[HPF] 0-5 [facility] LancasterErythrocytes detection in urine sediment by light ppaqwyctfl3347-70-98 13:40:00* Test Item Value Reference Range Interpretation Comments Urine RBC (test code = 24144-6) 6-10 /[HPF] 0-5 [facility] LancasterBacteria detection in urine sediment by light ntbgxzlpwh3005-00-22 13:40:00* Test Item Value Reference Range Interpretation Comments Urine Bacteria (test code = 22881-0) MODERATE /[HPF] NONE [facility] LancasterEpithelial cells detection in urine sediment by light liiwdqyqaj8472-03-28 13:40:00* Test Item Value Reference Range Interpretation Comments Urine Epithelial Cells (test code = 49599-9) FEW /[LPF] NONE [facility]ererum or plasma sodium measurement (moles/volume)2019-12-02 13:40:00* Test Item Value Reference Range Interpretation Comments Sodium Level (test code = 2951-2) 160 mmol/L 136-145 [facility]ererum or plasma potassium measurement (moles/volume)2019-12-02 13:40:00* Test Item Value Reference Range Interpretation Comments Potassium Level (test code = 2823-3) 4.6 mmol/L 3.5-5.1 [facility]ererum or plasma chloride measurement (moles/volume)2019-12-02 13:40:00* Test Item Value Reference Range Interpretation Comments Chloride Level (test code = 2075-0) 121 mmol/L 98-107 [facility]ererum or plasma carbon dioxide, total measurement (moles/volume)2019-12-02 13:40:00* Test Item Value Reference Range Interpretation Comments Carbon Dioxide Level (test code = 2028-9) 29 mmol/L 22-29 [facility]ererum or plasma anion qdp8251-70-18 13:40:00* Test Item Value Reference Range Interpretation Comments Anion Gap (test code = 85791-7) 14.6 mmol/L 8-16 [facility]ererum or plasma urea nitrogen measurement (mass/volume)2019-12-02 13:40:00* Test Item Value Reference Range Interpretation Comments Blood Urea Nitrogen (test code = 3094-0) 34 mg/dL 7-26 [facility]ererum or plasma creatinine measurement (mass/volume)2019-12-02 13:40:00* Test Item Value Reference Range Interpretation Comments Creatinine (test code = 2160-0) 0.70 mg/dL 0.72-1.25 [facility]ererum or plasma urea nitrogen/creatinine mass ahngq9568-88-22 13:40:00* Test Item Value Reference Range Interpretation Comments BUN/Creatinine Ratio (test code = 3097-3) 49 6-25 [facility] LancasterEstimated glomerular filtration rate (GFR) aqadckmnslptk8042-14-39 13:40:00* Test Item Value Reference Range Interpretation Comments Estimat Glomerular Filtration Rate (test code = 009468038) > 60 mL/ min >60 Ranges were taken from the National Kidney Disease Education Program and the [facility] Foundation literature.Reference ranges:60 or greater: Atzrwn78-37 ( for 3 consecutive months): Chronic kidney disease 15 or less: Kidney failureCrescent Medical Center LancasterGlucose tzvpcpyjwun2589-71-49 13:40:00* Test Item Value Reference Range Interpretation Comments Glucose Level (test code = NAN9008) 104 mg/dL 74-118 [facility]ererum or plasma calcium measurement (mass/volume)2019-12-02 13:40:00* Test Item Value Reference Range Interpretation Comments Calcium Level (test code = 07374-1) 8.6 mg/dL 8.4-10.2 [facility]ererum or plasma total bilirubin measurement (mass/volume)2019-12-02 13:40:00* Test Item Value Reference Range Interpretation Comments Total Bilirubin (test code = 1975-2) 0.4 mg/dL 0.2-1.2 [facility] LancasterFluoroscopic procedure less than one hour szxgycjv4648-35-36 13:40:00* Test Item Value Reference Range Interpretation Comments Aspartate Amino Transf (AST/SGOT) (test code = Aspartate Amino Transf (AST/SGOT)) 61 [IU]/L 5-34 [facility]ererum or plasma alanine aminotransferase measurement (enzymatic activity/volume)2019-12-02 13:40:00* Test Item Value Reference Range Interpretation Comments Alanine Aminotransferase (ALT/SGPT) (test code = 1742-6) 67 [IU]/L 0-55 [facility]ererum or plasma protein measurement (mass/volume)2019-12-02 13:40:00* Test Item Value Reference Range Interpretation Comments Total Protein (test code = 2885-2) 7.9 g/dL 6.5-8.1 [facility]ererum or plasma albumin measurement (mass/volume)2019-12-02 13:40:00* Test Item Value Reference Range Interpretation Comments Albumin (test code = 1751-7) 2.9 g/dL 3.5-5.0 [facility] LancasterPlasma globulin measurement (mass/volume) 2019-12-02 13:40:00* Test Item Value Reference Range Interpretation Comments Globulin (test code = 25448-3) 5.0 g/dL 2.3-3.5 [facility]ererum or plasma albumin/globulin mass qowsu8646-48-98 13:40:00* Test Item Value Reference Range Interpretation Comments Albumin/Globulin Ratio (test code = 1759-0) 0.6 0.8-2.0 [facility]ererum or plasma alkaline phosphatase measurement (enzymatic activity/volume)2019-12-02 13:40:00* Test Item Value Reference Range Interpretation Comments Alkaline Phosphatase (test code = 6768-6) 117 [IU]/L 40-150 [facility]ererum or plasma creatine kinase measurement (enzymatic activity/volume)2019-12-02 13:40:00* Test Item Value Reference Range Interpretation Comments Creatine Kinase (test code = 2157-6) 47 [IU]/L 30-200 [facility]ererum or plasma creatine kinase MB measurement (mass/volume)2019-12-02 13:40:00* Test Item Value Reference Range Interpretation Comments Creatine Kinase MB (test code = 75281-2) 0.60 ng/mL 0-5.0 [facility] LancasterTroponin I measurement by highly sensitive enzyme vsascusuujt1462-17-76 13:40:00* Test Item Value Reference Range Interpretation Comments Troponin I (test code = 81376-5) 0.002 ng/mL 0-0.300 [facility] LancasterBlood leukocytes automated count (number/volume)2019-12-02 13:40:00* Test Item Value Reference Range Interpretation Comments White Blood Count (test code = 6690-2) 5.19 10*3/uL 4.8-10.8 [facility] LancasterBlood erythrocytes automated count (number/volume)2019-12-02 13:40:00* Test Item Value Reference Range Interpretation Comments Red Blood Count (test code = 789-8) 4.39 10*6/mL 4.3-5.7 [facility] LancasterBlood hemoglobin measurement (moles/volume)2019-12-02 13:40:00* Test Item Value Reference Range Interpretation Comments Hemoglobin (test code = 59622-2) 12.6 g/dL 14.0-18.0 [facility] LancasterAutomated blood hematocrit (volume fraction)2019-12-02 13:40:00* Test Item Value Reference Range Interpretation Comments Hematocrit (test code = 4544-3) 43.1 % 38.2-49.6 [facility] LancasterAutomated erythrocyte mean corpuscular kavoez7800-31-08 13:40:00* Test Item Value Reference Range Interpretation Comments Mean Corpuscular Volume (test code = 787-2) 98.2 81-99 [facility] LancasterAutomated erythrocyte mean corpuscular hemoglobin (mass per erythrocyte)2019-12-02 13:40:00* Test Item Value Reference Range Interpretation Comments Mean Corpuscular Hemoglobin (test code = 785-6) 28.7 pg 28-32 [facility] LancasterAutomated erythrocyte mean corpuscular hemoglobin concentration measurement (mass/volume)2019-12-02 13:40:00* Test Item Value Reference Range Interpretation Comments Mean Corpuscular Hemoglobin Concent (test code = 786-4) 29.2 g/dL 31-35 [facility] LancasterRDW VtyEj-Dkj8308-03-24 13:40:00* Test Item Value Reference Range Interpretation Comments Red Cell Distribution Width (test code = 05846-9) 13.4 % 11.7 -14.4 [facility] LancasterAutomated blood platelet count (count/volume)2019-12-02 13:40:00* Test Item Value Reference Range Interpretation Comments Platelet Count (test code = 777-3) 69 10*3/uL 140-360 [facility] LancasterAutomated blood segmented neutrophil count as percentage of total bbecrhlmqh9319-71-23 13:40:00* Test Item Value Reference Range Interpretation Comments Neutrophils (%) (Auto) (test code = 70752-5) 61.1 % 38.7-80.0 [facility] LancasterAutomated blood lymphocyte count as percentage ot total rmllacnhin8958-21-15 13:40:00* Test Item Value Reference Range Interpretation Comments Lymphocytes (%) (Auto) (test code = 736-9) 28.7 % 18.0-39.1 [facility] LancasterAutomated blood monocyte count as percentage of total unbwtkpnov3735-52-35 13:40:00* Test Item Value Reference Range Interpretation Comments Monocytes (%) (Auto) (test code = 5905-5) 9.4 % 4.4-11.3 [facility] LancasterAutblow[facility] hospitaled blood eosinophil count as percentage of total ylmeqvdnjm7077-77-52 13:40:00* Test Item Value Reference Range Interpretation Comments Eosinophils (%) (Auto) (test code = 713-8) 0.2 % 0.0-6.0 [facility] blood basophil count as percentage of total istzkrbmes4784-17-52 13:40:00* Test Item Value Reference Range Interpretation Comments Basophils (%) (Auto) (test code = 706-2) 0.2 % 0.0-1.0 [facility] LancasterFluoroscopic procedure less than one hour lrxnbybf1023-55-09 13:40:00* Test Item Value Reference Range Interpretation Comments IM GRANULOCYTES % (test code = IM GRANULOCYTES %) 0.4 % 0.0- 1.0 [facility] LancasterAutomated blood neutrophil count 2019-12-02 13:40:00* Test Item Value Reference Range Interpretation Comments Neutrophils # (Auto) (test code = 751-8) 3.2 2.1-6.9 [facility] LancasterBlood lymphocytes count (number/volume) 2019-12-02 13:40:00* Test Item Value Reference Range Interpretation Comments Lymphocytes # (Auto) (test code = 82567-2) 1.5 1.0-3.2 [facility] monocytes automated count (number/volume)2019-12-02 13:40:00* Test Item Value Reference Range Interpretation Comments Monocytes # (Auto) (test code = 742-7) 0.5 0.2-0.8 [facility] LancasterAutomated blood eosinophil count 2019-12-02 13:40:00* Test Item Value Reference Range Interpretation Comments Eosinophils # (Auto) (test code = 711-2) 0.0 0.0-0.4 [facility] LancasterAutomated blood basophil count (count/volume)2019-12-02 13:40:00* Test Item Value Reference Range Interpretation Comments Basophils # (Auto) (test code = 704-7) 0.0 0.0-0.1 [facility] LancasterFluoroscopic procedure less than one hour uemvydlo6213-98-37 13:40:00* Test Item Value Reference Range Interpretation Comments Absolute Immature Granulocyte (auto (mabel t code = Absolute Immature Granulocyte (auto) 0.02 10*3/uL 0-0.1 [facility] LancasterProthrombin time (PT) in platelet poor plasma by coagulation qulcw3463-98-51 13:40:00* Test Item Value Reference Range Interpretation Comments Prothrombin Time (test code = 5902-2) 13.9 s 11.9-14.5 [facility] LancasterINR in Platelet poor plasma by Coagulation okyym7979-88-81 13:40:00* Test Item Value Reference Range Interpretation Comments Prothromb Time International Ratio (test code = 6301-6) 1.02 Oral Anticoagulant Therapy INR Values:1. Low Intensity Therapy 1.5 - 2.02 . Moderate Intensity Therapy 2.0 - 3.03. High Intensity Therapy(1) 2.5 - 3. 54. High Intensity Therapy(2) 3.0 - 4.05. Panic Value INR > 5.0 [facility] LancasterActivated partial thromboplastin time (aPTT) in platelet poor plasma by coagulation kbycp1090-62-25 13:40:00* Test Item Value Reference Range Interpretation Comments Activated Partial Thromboplast Time (test code = 81616-9) 33.3 s 23.8-35.5 [facility] LancasterUrine color yzxrkrfvlvboe5257-55-94 13:40:00* Test Item Value Reference Range Interpretation Comments Urine Color (test code = 5778-6) STRAW YELLOW [facility] LancasterUrine gtlvyqm3338-06-38 13:40:00* Test Item Value Reference Range Interpretation Comments Urine Clarity (test code = 93159-5) SL CLOUDY CLEAR [facility] Centerpecific gravity of Urine by Test strip 2019-12-02 13:40:00* Test Item Value Reference Range Interpretation Comments Urine Specific [place] (test code = 5811-5) 1.020 1.010-1.02 5 [facility] LancasterUrine pH measurement by automated test prnld5116-29-05 13:40:00* Test Item Value Reference Range Interpretation Comments Urine pH (test code = 98991-6) 5.5 5-7 [facility] LancasterUrine leukocyte esterase detection by ybfoftaw7086-56-47 13:40:00* Test Item Value Reference Range Interpretation Comments Urine Leukocyte Esterase (test code = 5799-2) NEGATIVE NEGATIVE [facility] LancasterUrine nitrite mmjnunupc7007-68-67 13:40:00* Test Item Value Reference Range Interpretation Comments Urine Nitrite (test code = 40999-9) NEGATIVE NEGATIVE [facility] LancasterUrine protein measurement by test strip (mass/volume)2019-12-02 13:40:00* Test Item Value Reference Range Interpretation Comments Urine Protein (test code = 5804-0) 2+ NEGATIVE [facility] LancasterUrine glucose jqasnqatx7812-81-67 13:40:00* Test Item Value Reference Range Interpretation Comments Urine Glucose (UA) (test code = 2349-9) NEGATIVE NEGATIVE [facility] LancasterUrine ketones detection by automated test srnqx4270-57-65 13:40:00* Test Item Value Reference Range Interpretation Comments Urine Ketones (test code = 62855-2) NEGATIVE NEGATIVE [facility] LancasterUrine urobilinogen measurement by test strip (mass/volume)2019-12-02 13:40:00* Test Item Value Reference Range Interpretation Comments Urine Urobilinogen (test code = 89122-4) 1 mg/dL 0.2-1 [facility] LancasterUrine total bilirubin measurement (mass/volume)2019-12-02 13:40:00* Test Item Value Reference Range Interpretation Comments Urine Bilirubin (test code = 1978-6) NEGATIVE NEGATIVE [facility] LancasterUrine erythrocytes fymqjfraz1732-12-39 13:40:00* Test Item Value Reference Range Interpretation Comments Urine Blood (test code = 52224-5) MODERATE NEGATIVE [facility] LancasterAutomated urine sediment leukocyte count by microscopy (number/high power field)2019-12-02 13:40:00* Test Item Value Reference Range Interpretation Comments Urine WBC (test code = 5821-4) NONE /[HPF] 0-5 [facility] LancasterErythrocytes detection in urine sediment by light juqievtgii4639-84-65 13:40:00* Test Item Value Reference Range Interpretation Comments Urine RBC (test code = 05511-2) 6-10 /[HPF] 0-5 [facility] LancasterBacteria detection in urine sediment by light rejkaozhoj0423-61-05 13:40:00* Test Item Value Reference Range Interpretation Comments Urine Bacteria (test code = 65840-5) MODERATE /[HPF] NONE [facility] LancasterEpithelial cells detection in urine sediment by light irqiglewty9012-14-29 13:40:00* Test Item Value Reference Range Interpretation Comments Urine Epithelial Cells (test code = 24267-1) FEW /[LPF] NONE [facility]ererum or plasma sodium measurement (moles/volume)2019-12-02 13:40:00* Test Item Value Reference Range Interpretation Comments Sodium Level (test code = 2951-2) 160 mmol/L 136-145 [facility]ererum or plasma potassium measurement (moles/volume)2019-12-02 13:40:00* Test Item Value Reference Range Interpretation Comments Potassium Level (test code = 2823-3) 4.6 mmol/L 3.5-5.1 [facility]ererum or plasma chloride measurement (moles/volume)2019-12-02 13:40:00* Test Item Value Reference Range Interpretation Comments Chloride Level (test code = 2075-0) 121 mmol/L 98-107 [facility]ererum or plasma carbon dioxide, total measurement (moles/volume)2019-12-02 13:40:00* Test Item Value Reference Range Interpretation Comments Carbon Dioxide Level (test code = 2028-9) 29 mmol/L 22-29 [facility]rum or plasma anion nab0689-71-09 13:40:00* Test Item Value Reference Range Interpretation Comments Anion Gap (test code = 84129-2) 14.6 mmol/L 8-16 [facility]rum or plasma urea nitrogen measurement (mass/volume)2019-12-02 13:40:00* Test Item Value Reference Range Interpretation Comments Blood Urea Nitrogen (test code = 3094-0) 34 mg/dL 7-26 [facility]ererum or plasma creatinine measurement (mass/volume)2019-12-02 13:40:00* Test Item Value Reference Range Interpretation Comments Creatinine (test code = 2160-0) 0.70 mg/dL 0.72-1.25 [facility]ererum or plasma urea nitrogen/creatinine mass orvzr5921-61-88 13:40:00* Test Item Value Reference Range Interpretation Comments BUN/Creatinine Ratio (test code = 3097-3) 49 6-25 [facility] LancasterEstimated glomerular filtration rate (GFR) odcrzdupdhygp1544-44-31 13:40:00* Test Item Value Reference Range Interpretation Comments Estimat Glomerular Filtration Rate (test code = 197691210) > 60 mL/ min >60 Ranges were taken from the National Kidney Disease Education Program and the [facility] Foundation literature.Reference ranges:60 or greater: Belhrb87-83 ( for 3 consecutive months): Chronic kidney disease 15 or less: Kidney failureCrescent Medical Center LancasterGlucose ntwpizpweia4927-35-54 13:40:00* Test Item Value Reference Range Interpretation Comments Glucose Level (test code = BDI8442) 104 mg/dL 74-118 [facility]ererum or plasma calcium measurement (mass/volume)2019-12-02 13:40:00* Test Item Value Reference Range Interpretation Comments Calcium Level (test code = 52161-4) 8.6 mg/dL 8.4-10.2 [facility]ererum or plasma total bilirubin measurement (mass/volume)2019-12-02 13:40:00* Test Item Value Reference Range Interpretation Comments Total Bilirubin (test code = 1975-2) 0.4 mg/dL 0.2-1.2 [facility] LancasterFluoroscopic procedure less than one hour ckuxxwrb0798-26-79 13:40:00* Test Item Value Reference Range Interpretation Comments Aspartate Amino Transf (AST/SGOT) (test code = Aspartate Amino Transf (AST/SGOT)) 61 [IU]/L 5-34 [facility]ererum or plasma alanine aminotransferase measurement (enzymatic activity/volume)2019-12-02 13:40:00* Test Item Value Reference Range Interpretation Comments Alanine Aminotransferase (ALT/SGPT) (test code = 1742-6) 67 [IU]/L 0-55 [facility]ererum or plasma protein measurement (mass/volume)2019-12-02 13:40:00* Test Item Value Reference Range Interpretation Comments Total Protein (test code = 2885-2) 7.9 g/dL 6.5-8.1 [facility] albumin [facility] (mass/volume)2019-12-02 13:40:00* Test Item Value Reference Range Interpretation Comments Albumin (test code = 1751-7) 2.9 g/dL 3.5-5.0 [facility]Pl[facility] globulin [facility] (mass/volume) 2019-12-02 13:40:00* Test Item Value Reference Range Interpretation Comments Globulin (test code = 93640-2) 5.0 g/dL 2.3-3.5 [facility] albumin/globulin mass vpods2381-92-09 13:40:00* Test Item Value Reference Range Interpretation Comments Albumin/Globulin Ratio (test code = 1759-0) 0.6 0.8-2.0 [facility] alkaline phosphatase measurement (enzymatic activity/volume)2019-12-02 13:40:00* Test Item Value Reference Range Interpretation Comments Alkaline Phosphatase (test code = 6768-6) 117 [IU]/L 40-150 [facility] creatine kinase measurement (enzymatic activity/volume)2019-12-02 13:40:00* Test Item Value Reference Range Interpretation Comments Creatine Kinase (test code = 2157-6) 47 [IU]/L 30-200 [facility] creatine kinase MB measurement (mass/volume)2019-12-02 13:40:00* Test Item Value Reference Range Interpretation Comments Creatine Kinase MB (test code = 29548-7) 0.60 ng/mL 0-5.0 [facility] LancasterTroponin I measurement by highly sensitive enzyme scrinlowoev4896-28-06 13:40:00* Test Item Value Reference Range Interpretation Comments Troponin I (test code = 92279-1) 0.002 ng/mL 0-0.300 [facility] leukocytes automated count (number/volume)2019-12-02 13:40:00* Test Item Value Reference Range Interpretation Comments White Blood Count (test code = 6690-2) 5.19 10*3/uL 4.8-10.8 [facility] erythrocytes automated count (number/volume)2019-12-02 13:40:00* Test Item Value Reference Range Interpretation Comments Red Blood Count (test code = 789-8) 4.39 10*6/mL 4.3-5.7 [facility] LancasterBlood hemoglobin measurement (moles/volume)2019-12-02 13:40:00* Test Item Value Reference Range Interpretation Comments Hemoglobin (test code = 42751-9) 12.6 g/dL 14.0-18.0 [facility] LancasterAutomated blood hematocrit (volume fraction)2019-12-02 13:40:00* Test Item Value Reference Range Interpretation Comments Hematocrit (test code = 4544-3) 43.1 % 38.2-49.6 [facility] LancasterAutomated erythrocyte mean corpuscular tnunrw9341-10-23 13:40:00* Test Item Value Reference Range Interpretation Comments Mean Corpuscular Volume (test code = 787-2) 98.2 81-99 [facility] LancasterAutomated erythrocyte mean corpuscular hemoglobin (mass per erythrocyte)2019-12-02 13:40:00* Test Item Value Reference Range Interpretation Comments Mean Corpuscular Hemoglobin (test code = 785-6) 28.7 pg 28-32 [facility] LancasterAutomated erythrocyte mean corpuscular hemoglobin concentration measurement (mass/volume)2019-12-02 13:40:00* Test Item Value Reference Range Interpretation Comments Mean Corpuscular Hemoglobin Concent (test code = 786-4) 29.2 g/dL 31-35 [facility] LancasterRDW RgfSj-Tus0239-90-24 13:40:00* Test Item Value Reference Range Interpretation Comments Red Cell Distribution Width (test code = 93672-7) 13.4 % 11.7 -14.4 [facility] LancasterAutomated blood platelet count (count/volume)2019-12-02 13:40:00* Test Item Value Reference Range Interpretation Comments Platelet Count (test code = 777-3) 69 10*3/uL 140-360 [facility] LancasterAutomated blood segmented neutrophil count as percentage of total ztdmngialn9693-00-91 13:40:00* Test Item Value Reference Range Interpretation Comments Neutrophils (%) (Auto) (test code = 71771-8) 61.1 % 38.7-80.0 [facility] LancasterAutomated blood lymphocyte count as percentage ot total kgcmfdvoqi8835-04-31 13:40:00* Test Item Value Reference Range Interpretation Comments Lymphocytes (%) (Auto) (test code = 736-9) 28.7 % 18.0-39.1 [facility] LancasterAutomated blood monocyte count as percentage of total fxiapekgwb1217-58-33 13:40:00* Test Item Value Reference Range Interpretation Comments Monocytes (%) (Auto) (test code = 5905-5) 9.4 % 4.4-11.3 [facility] LancasterAutomated blood eosinophil count as percentage of total mviubjcspr3145-07-81 13:40:00* Test Item Value Reference Range Interpretation Comments Eosinophils (%) (Auto) (test code = 713-8) 0.2 % 0.0-6.0 [facility] LancasterAutomated blood basophil count as percentage of total mmkdqeuzca3287-89-89 13:40:00* Test Item Value Reference Range Interpretation Comments Basophils (%) (Auto) (test code = 706-2) 0.2 % 0.0-1.0 [facility] LancasterFluoroscopic procedure less than one hour exmudses2067-48-26 13:40:00* Test Item Value Reference Range Interpretation Comments IM GRANULOCYTES % (test code = IM GRANULOCYTES %) 0.4 % 0.0- 1.0 [facility] LancasterAutomated blood neutrophil count 2019-12-02 13:40:00* Test Item Value Reference Range Interpretation Comments Neutrophils # (Auto) (test code = 751-8) 3.2 2.1-6.9 [facility] LancasterBlood lymphocytes count (number/volume) 2019-12-02 13:40:00* Test Item Value Reference Range Interpretation Comments Lymphocytes # (Auto) (test code = 61642-4) 1.5 1.0-3.2 [facility] LancasterBlood monocytes automated count (number/volume)2019-12-02 13:40:00* Test Item Value Reference Range Interpretation Comments Monocytes # (Auto) (test code = 742-7) 0.5 0.2-0.8 [facility] LancasterAutomated blood eosinophil count 2019-12-02 13:40:00* Test Item Value Reference Range Interpretation Comments Eosinophils # (Auto) (test code = 711-2) 0.0 0.0-0.4 [facility] LancasterAutomated blood basophil count (count/volume)2019-12-02 13:40:00* Test Item Value Reference Range Interpretation Comments Basophils # (Auto) (test code = 704-7) 0.0 0.0-0.1 [facility] LancasterFluoroscopic procedure less than one hour xcxueyij1419-29-56 13:40:00* Test Item Value Reference Range Interpretation Comments Absolute Immature Granulocyte (auto (mabel t code = Absolute Immature Granulocyte (auto) 0.02 10*3/uL 0-0.1 [facility] LancasterProthrombin time (PT) in platelet poor plasma by coagulation ipwnl3539-79-63 13:40:00* Test Item Value Reference Range Interpretation Comments Prothrombin Time (test code = 5902-2) 13.9 s 11.9-14.5 [facility] LancasterINR in Platelet poor plasma by Coagulation krpmm6744-86-95 13:40:00* Test Item Value Reference Range Interpretation Comments Prothromb Time International Ratio (test code = 6301-6) 1.02 Oral Anticoagulant Therapy INR Values:1. Low Intensity Therapy 1.5 - 2.02 . Moderate Intensity Therapy 2.0 - 3.03. High Intensity Therapy(1) 2.5 - 3. 54. High Intensity Therapy(2) 3.0 - 4.05. Panic Value INR > 5.0 [facility] LancasterActivated partial thromboplastin time (aPTT) in platelet poor plasma by coagulation kcomr4912-42-25 13:40:00* Test Item Value Reference Range Interpretation Comments Activated Partial Thromboplast Time (test code = 09061-0) 33.3 s 23.8-35.5 [facility] LancasterUrine color whxxwhvnngsob3564-57-27 13:40:00* Test Item Value Reference Range Interpretation Comments Urine Color (test code = 5778-6) STRAW YELLOW [facility] LancasterUrine rbkpadb3704-56-36 13:40:00* Test Item Value Reference Range Interpretation Comments Urine Clarity (test code = 89123-3) SL CLOUDY CLEAR [facility] Centerpecific gravity of Urine by Test strip 2019-12-02 13:40:00* Test Item Value Reference Range Interpretation Comments Urine Specific Perley (test code = 5811-5) 1.020 1.010-1.02 5 [facility] LancasterUrine pH measurement by automated test tvara4873-13-29 13:40:00* Test Item Value Reference Range Interpretation Comments Urine pH (test code = 28998-0) 5.5 5-7 [facility] LancasterUrine leukocyte esterase detection by wubufhey5869-95-28 13:40:00* Test Item Value Reference Range Interpretation Comments Urine Leukocyte Esterase (test code = 5799-2) NEGATIVE NEGATIVE [facility] LancasterUrine nitrite mljfbppvz9698-41-32 13:40:00* Test Item Value Reference Range Interpretation Comments Urine Nitrite (test code = 40019-4) NEGATIVE NEGATIVE [facility] LancasterUrine protein measurement by test strip (mass/volume)2019-12-02 13:40:00* Test Item Value Reference Range Interpretation Comments Urine Protein (test code = 5804-0) 2+ NEGATIVE [facility] LancasterUrine glucose gvalwmvcg8938-84-40 13:40:00* Test Item Value Reference Range Interpretation Comments Urine Glucose (UA) (test code = 2349-9) NEGATIVE NEGATIVE [facility] LancasterUrine ketones detection by automated test ecpao1150-89-34 13:40:00* Test Item Value Reference Range Interpretation Comments Urine Ketones (test code = 06934-3) NEGATIVE NEGATIVE [facility] LancasterUrine urobilinogen measurement by test strip (mass/volume)2019-12-02 13:40:00* Test Item Value Reference Range Interpretation Comments Urine Urobilinogen (test code = 11748-9) 1 mg/dL 0.2-1 [facility] LancasterUrine total bilirubin measurement (mass/volume)2019-12-02 13:40:00* Test Item Value Reference Range Interpretation Comments Urine Bilirubin (test code = 1978-6) NEGATIVE NEGATIVE [facility] LancasterUrine erythrocytes kkjrsuxrl3423-18-13 13:40:00* Test Item Value Reference Range Interpretation Comments Urine Blood (test code = 00733-0) MODERATE NEGATIVE [facility] LancasterAutomated urine sediment leukocyte count by microscopy (number/high power field)2019-12-02 13:40:00* Test Item Value Reference Range Interpretation Comments Urine WBC (test code = 5821-4) NONE /[HPF] 0-5 [facility] LancasterErythrocytes detection in urine sediment by light sfhesfctyy2450-17-59 13:40:00* Test Item Value Reference Range Interpretation Comments Urine RBC (test code = 79755-2) 6-10 /[HPF] 0-5 [facility] LancasterBacteria detection in urine sediment by light addzskuqrn3529-35-13 13:40:00* Test Item Value Reference Range Interpretation Comments Urine Bacteria (test code = 75934-4) MODERATE /[HPF] NONE [facility] LancasterEpithelial cells detection in urine sediment by light laborbmccw6046-68-46 13:40:00* Test Item Value Reference Range Interpretation Comments Urine Epithelial Cells (test code = 63043-2) FEW /[LPF] NONE [facility] or plasma sodium measurement (moles/volume)2019-12-02 13:40:00* Test Item Value Reference Range Interpretation Comments Sodium Level (test code = 2951-2) 160 mmol/L 136-145 [facility]rum or plasma potassium measurement (moles/volume)2019-12-02 13:40:00* Test Item Value Reference Range Interpretation Comments Potassium Level (test code = 2823-3) 4.6 mmol/L 3.5-5.1 [facility]rum or plasma chloride measurement (moles/volume)2019-12-02 13:40:00* Test Item Value Reference Range Interpretation Comments Chloride Level (test code = 2075-0) 121 mmol/L 98-107 [facility]ererum or plasma carbon dioxide, total measurement (moles/volume)2019-12-02 13:40:00* Test Item Value Reference Range Interpretation Comments Carbon Dioxide Level (test code = 2028-9) 29 mmol/L 22-29 [facility]rum or plasma anion mwb4111-76-63 13:40:00* Test Item Value Reference Range Interpretation Comments Anion Gap (test code = 04741-5) 14.6 mmol/L 8-16 [facility]rum or plasma urea nitrogen measurement (mass/volume)2019-12-02 13:40:00* Test Item Value Reference Range Interpretation Comments Blood Urea Nitrogen (test code = 3094-0) 34 mg/dL 7-26 [facility]rum or plasma creatinine measurement (mass/volume)2019-12-02 13:40:00* Test Item Value Reference Range Interpretation Comments Creatinine (test code = 2160-0) 0.70 mg/dL 0.72-1.25 [facility]ererum or plasma urea nitrogen/creatinine mass zsxjs3823-44-30 13:40:00* Test Item Value Reference Range Interpretation Comments BUN/Creatinine Ratio (test code = 3097-3) 49 6-25 [facility] LancasterEstimated glomerular filtration rate (GFR) fcpldbbtpcneg6824-67-75 13:40:00* Test Item Value Reference Range Interpretation Comments Estimat Glomerular Filtration Rate (test code = 122135438) > 60 mL/ min >60 Ranges were taken from the National Kidney Disease Education Program and the [facility] literature.Reference ranges:60 or greater: Oexhgw88-41 ( for 3 consecutive months): Chronic kidney disease 15 or less: Kidney failureCrescent Medical Center LancasterGlucose mdyznfuntak0350-31-20 13:40:00* Test Item Value Reference Range Interpretation Comments Glucose Level (test code = CXF2796) 104 mg/dL 74-118 [facility] or plasma calcium measurement (mass/volume)2019-12-02 13:40:00* Test Item Value Reference Range Interpretation Comments Calcium Level (test code = 41084-1) 8.6 mg/dL 8.4-10.2 [facility]ererum or plasma total bilirubin measurement (mass/volume)2019-12-02 13:40:00* Test Item Value Reference Range Interpretation Comments Total Bilirubin (test code = 1975-2) 0.4 mg/dL 0.2-1.2 [facility] LancasterFluoroscopic procedure less than one hour mpvchczg9898-42-18 13:40:00* Test Item Value Reference Range Interpretation Comments Aspartate Amino Transf (AST/SGOT) (test code = Aspartate Amino Transf (AST/SGOT)) 61 [IU]/L 5-34 [facility]rum or plasma alanine aminotransferase measurement (enzymatic activity/volume)2019-12-02 13:40:00* Test Item Value Reference Range Interpretation Comments Alanine Aminotransferase (ALT/SGPT) (test code = 1742-6) 67 [IU]/L 0-55 [facility] or plasma protein measurement (mass/volume)2019-12-02 13:40:00* Test Item Value Reference Range Interpretation Comments Total Protein (test code = 2885-2) 7.9 g/dL 6.5-8.1 [facility]rum or plasma albumin measurement (mass/volume)2019-12-02 13:40:00* Test Item Value Reference Range Interpretation Comments Albumin (test code = 1751-7) 2.9 g/dL 3.5-5.0 [facility] LancasterPlasma globulin measurement (mass/volume) 2019-12-02 13:40:00* Test Item Value Reference Range Interpretation Comments Globulin (test code = 08291-1) 5.0 g/dL 2.3-3.5 [facility]rum or plasma albumin/globulin mass nwaju8962-85-69 13:40:00* Test Item Value Reference Range Interpretation Comments Albumin/Globulin Ratio (test code = 1759-0) 0.6 0.8-2.0 [facility]rum or plasma alkaline phosphatase measurement (enzymatic activity/volume)2019-12-02 13:40:00* Test Item Value Reference Range Interpretation Comments Alkaline Phosphatase (test code = 6768-6) 117 [IU]/L 40-150 [facility]rum or plasma creatine kinase measurement (enzymatic activity/volume)2019-12-02 13:40:00* Test Item Value Reference Range Interpretation Comments Creatine Kinase (test code = 2157-6) 47 [IU]/L 30-200 [facility]rum or plasma creatine kinase MB measurement (mass/volume)2019-12-02 13:40:00* Test Item Value Reference Range Interpretation Comments Creatine Kinase MB (test code = 59102-6) 0.60 ng/mL 0-5.0 [facility] LancasterTroponin I measurement by highly sensitive enzyme ychwldtbjfo2599-86-52 13:40:00* Test Item Value Reference Range Interpretation Comments Troponin I (test code = 08563-5) 0.002 ng/mL 0-0.300 [facility] LancasterBlood leukocytes automated count (number/volume)2019-12-02 13:40:00* Test Item Value Reference Range Interpretation Comments White Blood Count (test code = 6690-2) 5.19 10*3/uL 4.8-10.8 [facility] LancasterBlood erythrocytes automated count (number/volume)2019-12-02 13:40:00* Test Item Value Reference Range Interpretation Comments Red Blood Count (test code = 789-8) 4.39 10*6/mL 4.3-5.7 [facility] LancasterBlood hemoglobin measurement (moles/volume)2019-12-02 13:40:00* Test Item Value Reference Range Interpretation Comments Hemoglobin (test code = 08526-0) 12.6 g/dL 14.0-18.0 [facility] LancasterAutomated blood hematocrit (volume fraction)2019-12-02 13:40:00* Test Item Value Reference Range Interpretation Comments Hematocrit (test code = 4544-3) 43.1 % 38.2-49.6 [facility] LancasterAutomated erythrocyte mean corpuscular qcuejr0467-06-69 13:40:00* Test Item Value Reference Range Interpretation Comments Mean Corpuscular Volume (test code = 787-2) 98.2 81-99 [facility] LancasterAutomated erythrocyte mean corpuscular hemoglobin (mass per erythrocyte)2019-12-02 13:40:00* Test Item Value Reference Range Interpretation Comments Mean Corpuscular Hemoglobin (test code = 785-6) 28.7 pg 28-32 [facility] LancasterAutomated erythrocyte mean corpuscular hemoglobin concentration measurement (mass/volume)2019-12-02 13:40:00* Test Item Value Reference Range Interpretation Comments Mean Corpuscular Hemoglobin Concent (test code = 786-4) 29.2 g/dL 31-35 [facility] LancasterRDW DtkNw-Wih3811-40-24 13:40:00* Test Item Value Reference Range Interpretation Comments Red Cell Distribution Width (test code = 89338-9) 13.4 % 11.7 -14.4 [facility] LancasterAutomated blood platelet count (count/volume)2019-12-02 13:40:00* Test Item Value Reference Range Interpretation Comments Platelet Count (test code = 777-3) 69 10*3/uL 140-360 [facility] LancasterAutomated blood segmented neutrophil count as percentage of total iktzvwfrbe1151-42-59 13:40:00* Test Item Value Reference Range Interpretation Comments Neutrophils (%) (Auto) (test code = 08882-8) 61.1 % 38.7-80.0 [facility] LancasterAutomated blood lymphocyte count as percentage ot total iyswfzkmqu1664-95-66 13:40:00* Test Item Value Reference Range Interpretation Comments Lymphocytes (%) (Auto) (test code = 736-9) 28.7 % 18.0-39.1 [facility] LancasterAutomated blood monocyte count as percentage of total zqwpsybbqk5669-19-94 13:40:00* Test Item Value Reference Range Interpretation Comments Monocytes (%) (Auto) (test code = 5905-5) 9.4 % 4.4-11.3 [facility] LancasterAutomated blood eosinophil count as percentage of total lsakqascsj3141-82-09 13:40:00* Test Item Value Reference Range Interpretation Comments Eosinophils (%) (Auto) (test code = 713-8) 0.2 % 0.0-6.0 [facility] LancasterAutomated blood basophil count as percentage of total yarjmzrvfr9233-66-21 13:40:00* Test Item Value Reference Range Interpretation Comments Basophils (%) (Auto) (test code = 706-2) 0.2 % 0.0-1.0 [facility] LancasterFluoroscopic procedure less than one hour kqeanesl9984-06-30 13:40:00* Test Item Value Reference Range Interpretation Comments IM GRANULOCYTES % (test code = IM GRANULOCYTES %) 0.4 % 0.0- 1.0 [facility] LancasterAutomated blood neutrophil count 2019-12-02 13:40:00* Test Item Value Reference Range Interpretation Comments Neutrophils # (Auto) (test code = 751-8) 3.2 2.1-6.9 [facility] LancasterBlood lymphocytes count (number/volume) 2019-12-02 13:40:00* Test Item Value Reference Range Interpretation Comments Lymphocytes # (Auto) (test code = 98623-7) 1.5 1.0-3.2 [facility] LancasterBlood monocytes automated count (number/volume)2019-12-02 13:40:00* Test Item Value Reference Range Interpretation Comments Monocytes # (Auto) (test code = 742-7) 0.5 0.2-0.8 [facility] LancasterAutomated blood eosinophil count 2019-12-02 13:40:00* Test Item Value Reference Range Interpretation Comments Eosinophils # (Auto) (test code = 711-2) 0.0 0.0-0.4 [facility] LancasterAutomated blood basophil count (count/volume)2019-12-02 13:40:00* Test Item Value Reference Range Interpretation Comments Basophils # (Auto) (test code = 704-7) 0.0 0.0-0.1 [facility] LancasterFluoroscopic procedure less than one hour sznzlwtv9637-68-74 13:40:00* Test Item Value Reference Range Interpretation Comments Absolute Immature Granulocyte (auto (mabel t code = Absolute Immature Granulocyte (auto) 0.02 10*3/uL 0-0.1 [facility] LancasterProthrombin time (PT) in platelet poor plasma by coagulation hssdj6771-63-74 13:40:00* Test Item Value Reference Range Interpretation Comments Prothrombin Time (test code = 5902-2) 13.9 s 11.9-14.5 [facility] LancasterINR in Platelet poor plasma by Coagulation agzfh7844-99-08 13:40:00* Test Item Value Reference Range Interpretation Comments Prothromb Time International Ratio (test code = 6301-6) 1.02 Oral Anticoagulant Therapy INR Values:1. Low Intensity Therapy 1.5 - 2.02 . Moderate Intensity Therapy 2.0 - 3.03. High Intensity Therapy(1) 2.5 - 3. 54. High Intensity Therapy(2) 3.0 - 4.05. Panic Value INR > 5.0 [facility] LancasterActivated partial thromboplastin time (aPTT) in platelet poor plasma by coagulation otxbe0038-92-30 13:40:00* Test Item Value Reference Range Interpretation Comments Activated Partial Thromboplast Time (test code = 39572-2) 33.3 s 23.8-35.5 [facility] LancasterUrine color feurwqbjgnjyd2766-93-45 13:40:00* Test Item Value Reference Range Interpretation Comments Urine Color (test code = 5778-6) STRAW YELLOW [facility] LancasterUrine urarfpo8300-34-53 13:40:00* Test Item Value Reference Range Interpretation Comments Urine Clarity (test code = 23919-0) SL CLOUDY CLEAR [facility] Centerpecific gravity of Urine by Test strip 2019-12-02 13:40:00* Test Item Value Reference Range Interpretation Comments Urine Specific [place] (test code = 5811-5) 1.020 1.010-1.02 5 [facility] LancasterUrine pH measurement by automated test vkrjw5097-52-43 13:40:00* Test Item Value Reference Range Interpretation Comments Urine pH (test code = 43691-6) 5.5 5-7 [facility] LancasterUrine leukocyte esterase detection by inalljrc9945-74-96 13:40:00* Test Item Value Reference Range Interpretation Comments Urine Leukocyte Esterase (test code = 5799-2) NEGATIVE NEGATIVE [facility] LancasterUrine nitrite xqrgruakw9429-92-85 13:40:00* Test Item Value Reference Range Interpretation Comments Urine Nitrite (test code = 94471-4) NEGATIVE NEGATIVE [facility] LancasterUrine protein measurement by test strip (mass/volume)2019-12-02 13:40:00* Test Item Value Reference Range Interpretation Comments Urine Protein (test code = 5804-0) 2+ NEGATIVE [facility] LancasterUrine glucose brhjrzqxe4130-42-08 13:40:00* Test Item Value Reference Range Interpretation Comments Urine Glucose (UA) (test code = 2349-9) NEGATIVE NEGATIVE [facility] LancasterUrine ketones detection by automated test vadwb2267-96-93 13:40:00* Test Item Value Reference Range Interpretation Comments Urine Ketones (test code = 39425-7) NEGATIVE NEGATIVE [facility] LancasterUrine urobilinogen measurement by test strip (mass/volume)2019-12-02 13:40:00* Test Item Value Reference Range Interpretation Comments Urine Urobilinogen (test code = 44582-2) 1 mg/dL 0.2-1 [facility] LancasterUrine total bilirubin measurement (mass/volume)2019-12-02 13:40:00* Test Item Value Reference Range Interpretation Comments Urine Bilirubin (test code = 1978-6) NEGATIVE NEGATIVE [facility] LancasterUrine erythrocytes flwgvadhp2049-32-77 13:40:00* Test Item Value Reference Range Interpretation Comments Urine Blood (test code = 79689-9) MODERATE NEGATIVE [facility] LancasterAutomated urine sediment leukocyte count by microscopy (number/high power field)2019-12-02 13:40:00* Test Item Value Reference Range Interpretation Comments Urine WBC (test code = 5821-4) NONE /[HPF] 0-5 [facility] LancasterErythrocytes detection in urine sediment by light nhglrnmvlz1176-40-32 13:40:00* Test Item Value Reference Range Interpretation Comments Urine RBC (test code = 54399-2) 6-10 /[HPF] 0-5 [facility] LancasterBacteria detection in urine sediment by light bwrcdnlmwb6689-33-39 13:40:00* Test Item Value Reference Range Interpretation Comments Urine Bacteria (test code = 13083-6) MODERATE /[HPF] NONE [facility] LancasterEpithelial cells detection in urine sediment by light eumzdgpedi9874-86-44 13:40:00* Test Item Value Reference Range Interpretation Comments Urine Epithelial Cells (test code = 24829-4) FEW /[LPF] NONE [facility] sodium [facility] (moles/volume)2019-12-02 13:40:00* Test Item Value Reference Range Interpretation Comments Sodium Level (test code = 2951-2) 160 mmol/L 136-145 [facility] potassium measurement (moles/volume)2019-12-02 13:40:00* Test Item Value Reference Range Interpretation Comments Potassium Level (test code = 2823-3) 4.6 mmol/L 3.5-5.1 [facility] chloride measurement (moles/volume)2019-12-02 13:40:00* Test Item Value Reference Range Interpretation Comments Chloride Level (test code = 2075-0) 121 mmol/L 98-107 [facility] carbon dioxide, total measurement (moles/volume)2019-12-02 13:40:00* Test Item Value Reference Range Interpretation Comments Carbon Dioxide Level (test code = 2028-9) 29 mmol/L 22-29 [facility] anion vfb1258-36-32 13:40:00* Test Item Value Reference Range Interpretation Comments Anion Gap (test code = 18245-7) 14.6 mmol/L 8-16 [facility] urea nitrogen measurement (mass/volume)2019-12-02 13:40:00* Test Item Value Reference Range Interpretation Comments Blood Urea Nitrogen (test code = 3094-0) 34 mg/dL 7- [facility] creatinine measurement (mass/volume)2019-12-02 13:40:00* Test Item Value Reference Range Interpretation Comments Creatinine (test code = 2160-0) 0.70 mg/dL 0.72-1.25 [facility] urea nitrogen/creatinine mass okjdj0381-66-06 13:40:00* Test Item Value Reference Range Interpretation Comments BUN/Creatinine Ratio (test code = 3097-3) 49 6-25 [facility] LancasterEstimated glomerular filtration rate (GFR) fvxcnrcddsoen5177-71-06 13:40:00* Test Item Value Reference Range Interpretation Comments Estimat Glomerular Filtration Rate (test code = 207297624) > 60 mL/ min >60 Ranges were taken from the National Kidney Disease Education Program and the [facility] literature.Reference ranges:60 or greater: Ixqvtc51-46 ( for 3 consecutive months): Chronic kidney disease 15 or less: Kidney failureCrescent Medical Center LancasterGlucose rygvrcvuhak9457-52-21 13:40:00* Test Item Value Reference Range Interpretation Comments Glucose Level (test code = MCP2946) 104 mg/dL 74-118 [facility] calcium measurement (mass/volume)2019-12-02 13:40:00* Test Item Value Reference Range Interpretation Comments Calcium Level (test code = 40117-4) 8.6 mg/dL 8.4-10.2 [facility]rum or plasma total bilirubin measurement (mass/volume)2019-12-02 13:40:00* Test Item Value Reference Range Interpretation Comments Total Bilirubin (test code = 1975-2) 0.4 mg/dL 0.2-1.2 [facility] LancasterFluoroscopic procedure less than one hour erfauiiq4780-48-80 13:40:00* Test Item Value Reference Range Interpretation Comments Aspartate Amino Transf (AST/SGOT) (test code = Aspartate Amino Transf (AST/SGOT)) 61 [IU]/L 5-34 [facility]ererum or plasma alanine aminotransferase measurement (enzymatic activity/volume)2019-12-02 13:40:00* Test Item Value Reference Range Interpretation Comments Alanine Aminotransferase (ALT/SGPT) (test code = 1742-6) 67 [IU]/L 0-55 [facility]rum [facility] protein measurement (mass/volume)2019-12-02 13:40:00* Test Item Value Reference Range Interpretation Comments Total Protein (test code = 2885-2) 7.9 g/dL 6.5-8.1 [facility] albumin measurement (mass/volume)2019-12-02 13:40:00* Test Item Value Reference Range Interpretation Comments Albumin (test code = 1751-7) 2.9 g/dL 3.5-5.0 [facility] LancasterPlasma globulin measurement (mass/volume) 2019-12-02 13:40:00* Test Item Value Reference Range Interpretation Comments Globulin (test code = 78304-4) 5.0 g/dL 2.3-3.5 [facility] albumin/globulin mass pstmg6111-74-44 13:40:00* Test Item Value Reference Range Interpretation Comments Albumin/Globulin Ratio (test code = 1759-0) 0.6 0.8-2.0 [facility]rum [facility] alkaline phosphatase measurement (enzymatic activity/volume)2019-12-02 13:40:00* Test Item Value Reference Range Interpretation Comments Alkaline Phosphatase (test code = 6768-6) 117 [IU]/L 40-150 [facility]rum or plasma creatine kinase measurement (enzymatic activity/volume)2019-12-02 13:40:00* Test Item Value Reference Range Interpretation Comments Creatine Kinase (test code = 2157-6) 47 [IU]/L 30-200 [facility]rum [facility] plasma creatine kinase MB measurement (mass/volume)2019-12-02 13:40:00* Test Item Value Reference Range Interpretation Comments Creatine Kinase MB (test code = 43687-2) 0.60 ng/mL 0-5.0 [facility] LancasterTroponin I measurement by highly sensitive enzyme nvgyscvrhsp9620-47-00 13:40:00* Test Item Value Reference Range Interpretation Comments Troponin I (test code = 78479-1) 0.002 ng/mL 0-0.300 [facility] LancasterFluoroscopic procedure less than one hour shwrfntt9592-21-94 13:00:00* Test Item Value Reference Range Interpretation Comments Lactic Acid Level (test code = Lactic Acid Level) 1.7 0.5- 2.0 [facility] LancasterFluoroscopic procedure less than one hour zzngmvmp5536-77-14 13:00:00* Test Item Value Reference Range Interpretation Comments Lactic Acid Level (test code = Lactic Acid Level) 1.7 0.5- 2.0 [facility] LancasterBlood bteyiqv0893-48-12 13:00:00* Test Item Value Reference Range Interpretation Comments Blood Culture (test code = 66517520) NO GROWTH AFTER 5 DAYS, FINAL REPORT [facility] LancasterFluoroscopic procedure less than one hour muqwudrd8070-69-93 13:00:00* Test Item Value Reference Range Interpretation Comments Lactic Acid Level (test code = Lactic Acid Level) 1.7 0.5- 2.0 [facility] LancasterBlood egzsnlj7503-17-51 13:00:00* Test Item Value Reference Range Interpretation Comments Blood Culture (test code = 72600306) NO GROWTH AFTER 5 DAYS, FINAL REPORT [facility] LancasterFluoroscopic procedure less than one hour hmvslgzw5603-28-60 13:00:00* Test Item Value Reference Range Interpretation Comments Lactic Acid Level (test code = Lactic Acid Level) 1.7 0.5- 2.0 [facility] jmpgnyr0978-25-12 13:00:00* Test Item Value Reference Range Interpretation Comments Blood Culture (test code = 88336623) NO GROWTH AFTER 5 DAYS, FINAL REPORT [facility] LancasterBacterial urine qnntqhp6716-66-42 12:42:00* Test Item Value Reference Range Interpretation Comments Urine Culture (test code = 630-4) ENTEROCOCCUS FAECALIS [facility] LancasterBactun[facility] urine pqiwymg0359-33-40 12:42:00* Test Item Value Reference Range Interpretation Comments Urine Culture (test code = 630-4) ENTEROCOCCUS FAECALIS [facility] LancasterBacteria urine hofgopy9401-28-54 12:42:00* Test Item Value Reference Range Interpretation Comments Urine Culture (test code = 630-4) ENTEROCOCCUS FAECALIS [facility] LancasterB[facility] leukocytes automated count (number/volume)2019-12-02 12:40:00* Test Item Value Reference Range Interpretation Comments White Blood Count (test code = 6690-2) 5.19 4.8-10.8 [facility] erythrocytes automated count (number/volume)2019-12-02 12:40:00* Test Item Value Reference Range Interpretation Comments Red Blood Count (test code = 789-8) 4.39 4.3-5.7 [facility] hemoglobin measurement (moles/volume)2019-12-02 12:40:00* Test Item Value Reference Range Interpretation Comments Hemoglobin (test code = 21472-2) 12.6 14.0-18.0 [facility] LancasterAutblowing [facility] hospitaled blood hematocrit (volume fraction)2019-12-02 12:40:00* Test Item Value Reference Range Interpretation Comments Hematocrit (test code = 4544-3) 43.1 38.2-49.6 [facility] LancasterAutomated erythrocyte mean corpuscular ccuwiu6355-37-29 12:40:00* Test Item Value Reference Range Interpretation Comments Mean Corpuscular Volume (test code = 787-2) 98.2 81-99 [facility] LancasterAutomated erythrocyte mean corpuscular hemoglobin (mass per erythrocyte)2019-12-02 12:40:00* Test Item Value Reference Range Interpretation Comments Mean Corpuscular Hemoglobin (test code = 785-6) 28.7 28-32 [facility] LancasterAutomated erythrocyte mean corpuscular hemoglobin concentration measurement (mass/volume)2019-12-02 12:40:00* Test Item Value Reference Range Interpretation Comments Mean Corpuscular Hemoglobin Concent (test code = 786-4) 29.2 31-35 [facility] LancasterRDW PzqTb-Dzm4251-55-24 12:40:00* Test Item Value Reference Range Interpretation Comments Red Cell Distribution Width (test code = 24927-6) 13.4 11.7 -14.4 [facility] LancasterAutomated blood platelet count (count/volume)2019-12-02 12:40:00* Test Item Value Reference Range Interpretation Comments Platelet Count (test code = 777-3) 69 140-360 [facility] neutrophil count as percentage of total qojgozinej1212-92-05 12:40:00* Test Item Value Reference Range Interpretation Comments Neutrophils (%) (Auto) (test code = 87596-1) 61.1 38.7-80.0 [facility] LancasterAutomated blood lymphocyte count as percentage ot total evylaphzbb2606-83-83 12:40:00* Test Item Value Reference Range Interpretation Comments Lymphocytes (%) (Auto) (test code = 736-9) 28.7 18.0-39.1 [facility] LancasterAutomated blood monocyte count as percentage of total qfprubjqqj1239-62-62 12:40:00* Test Item Value Reference Range Interpretation Comments Monocytes (%) (Auto) (test code = 5905-5) 9.4 4.4-11.3 [facility] LancasterAutomated blood eosinophil count as percentage of total fhnwdhwivk1427-92-40 12:40:00* Test Item Value Reference Range Interpretation Comments Eosinophils (%) (Auto) (test code = 713-8) 0.2 0.0-6.0 [facility] LancasterAutomated blood basophil count as percentage of total mlibkbzrpl6721-09-61 12:40:00* Test Item Value Reference Range Interpretation Comments Basophils (%) (Auto) (test code = 706-2) 0.2 0.0-1.0 [facility] LancasterFluoroscopic procedure less than one hour zsmlqwqc8628-60-92 12:40:00* Test Item Value Reference Range Interpretation Comments IM GRANULOCYTES % (test code = IM GRANULOCYTES %) 0.4 0.0- 1.0 [facility] LancasterAutomated blood neutrophil count 2019-12-02 12:40:00* Test Item Value Reference Range Interpretation Comments Neutrophils # (Auto) (test code = 751-8) 3.2 2.1-6.9 [facility] LancasterBlood lymphocytes count (number/volume) 2019-12-02 12:40:00* Test Item Value Reference Range Interpretation Comments Lymphocytes # (Auto) (test code = 25945-8) 1.5 1.0-3.2 [facility] monocytes automated count (number/volume)2019-12-02 12:40:00* Test Item Value Reference Range Interpretation Comments Monocytes # (Auto) (test code = 742-7) 0.5 0.2-0.8 [facility] LancasterAutomated blood eosinophil count 2019-12-02 12:40:00* Test Item Value Reference Range Interpretation Comments Eosinophils # (Auto) (test code = 711-2) 0.0 0.0-0.4 [facility] LancasterAutomated blood basophil count (count/volume)2019-12-02 12:40:00* Test Item Value Reference Range Interpretation Comments Basophils # (Auto) (test code = 704-7) 0.0 0.0-0.1 [facility] LancasterFluoroscopic procedure less than one hour kdjdpnqx4732-26-17 12:40:00* Test Item Value Reference Range Interpretation Comments Absolute Immature Granulocyte (auto (mabel t code = Absolute Immature Granulocyte (auto) 0.02 0-0.1 [facility] LancasterProthrombin time (PT) in platelet poor plasma by coagulation gxqgg7122-93-24 12:40:00* Test Item Value Reference Range Interpretation Comments Prothrombin Time (test code = 5902-2) 13.9 11.9-14.5 [facility] LancasterINR in Platelet poor plasma by Coagulation qjfpl1117-22-01 12:40:00* Test Item Value Reference Range Interpretation Comments Prothromb Time International Ratio (test code = 6301-6) 1.02 Oral Anticoagulant Therapy INR Values:1. Low Intensity Therapy 1.5 - 2.02 . Moderate Intensity Therapy 2.0 - 3.03. High Intensity Therapy(1) 2.5 - 3. 54. High Intensity Therapy(2) 3.0 - 4.05. Panic Value INR > 5.0 [facility] LancasterActivated partial thromboplastin time (aPTT) in platelet poor plasma by coagulation yatvq6233-49-15 12:40:00* Test Item Value Reference Range Interpretation Comments Activated Partial Thromboplast Time (test code = 89930-2) 33.3 23.8-35.5 [facility] LancasterUrine color amydyptpggupj8574-95-48 12:40:00* Test Item Value Reference Range Interpretation Comments Urine Color (test code = 5778-6) STRAW YELLOW [facility] LancasterUrine srubkzs7532-83-15 12:40:00* Test Item Value Reference Range Interpretation Comments Urine Clarity (test code = 09976-6) SL CLOUDY CLEAR [facility] Centerpecific gravity of Urine by Test strip 2019-12-02 12:40:00* Test Item Value Reference Range Interpretation Comments Urine Specific [place] (test code = 5811-5) 1.020 1.010-1.02 5 [facility] LancasterUrine pH measurement by automated test kzjmv4276-87-02 12:40:00* Test Item Value Reference Range Interpretation Comments Urine pH (test code = 18029-1) 5.5 5-7 [facility] LancasterUrine leukocyte esterase detection by gdxaxupb9041-01-75 12:40:00* Test Item Value Reference Range Interpretation Comments Urine Leukocyte Esterase (test code = 5799-2) NEGATIVE NEGATIVE [facility] LancasterUrine nitrite ceossgbcq9406-96-43 12:40:00* Test Item Value Reference Range Interpretation Comments Urine Nitrite (test code = 32880-6) NEGATIVE NEGATIVE [facility] LancasterUrine protein measurement by test strip (mass/volume)2019-12-02 12:40:00* Test Item Value Reference Range Interpretation Comments Urine Protein (test code = 5804-0) 2+ NEGATIVE [facility] LancasterUrine glucose xzmgmjosn0546-81-21 12:40:00* Test Item Value Reference Range Interpretation Comments Urine Glucose (UA) (test code = 2349-9) NEGATIVE NEGATIVE [facility] LancasterUrine ketones detection by automated test pjzpm0265-33-62 12:40:00* Test Item Value Reference Range Interpretation Comments Urine Ketones (test code = 39929-4) NEGATIVE NEGATIVE [facility] LancasterUrine urobilinogen measurement by test strip (mass/volume)2019-12-02 12:40:00* Test Item Value Reference Range Interpretation Comments Urine Urobilinogen (test code = 88589-5) 1 0.2-1 [facility] LancasterUrine total bilirubin measurement (mass/volume)2019-12-02 12:40:00* Test Item Value Reference Range Interpretation Comments Urine Bilirubin (test code = 1978-6) NEGATIVE NEGATIVE [facility] LancasterUrine erythrocytes vcpknosyz7859-11-17 12:40:00* Test Item Value Reference Range Interpretation Comments Urine Blood (test code = 73424-3) MODERATE NEGATIVE [facility] LancasterAutomated urine sediment leukocyte count by microscopy (number/high power field)2019-12-02 12:40:00* Test Item Value Reference Range Interpretation Comments Urine WBC (test code = 5821-4) NONE 0-5 [facility] LancasterErythrocytes detection in urine sediment by light xggxfodszk3231-89-94 12:40:00* Test Item Value Reference Range Interpretation Comments Urine RBC (test code = 27298-8) 6-10 0-5 [facility] LancasterBacteria detection in urine sediment by light yrtvdwidvv9844-04-27 12:40:00* Test Item Value Reference Range Interpretation Comments Urine Bacteria (test code = 30590-7) MODERATE NONE [facility] LancasterEpithelial cells detection in urine sediment by light tibtvpebtt4663-76-22 12:40:00* Test Item Value Reference Range Interpretation Comments Urine Epithelial Cells (test code = 86524-4) FEW NONE [facility] or plasma sodium measurement (moles/volume)2019-12-02 12:40:00* Test Item Value Reference Range Interpretation Comments Sodium Level (test code = 2951-2) 160 136-145 [facility] or plasma potassium measurement (moles/volume)2019-12-02 12:40:00* Test Item Value Reference Range Interpretation Comments Potassium Level (test code = 2823-3) 4.6 3.5-5.1 [facility] or plasma chloride measurement (moles/volume)2019-12-02 12:40:00* Test Item Value Reference Range Interpretation Comments Chloride Level (test code = 2075-0) 121 98-107 [facility]rum or plasma carbon dioxide, total measurement (moles/volume)2019-12-02 12:40:00* Test Item Value Reference Range Interpretation Comments Carbon Dioxide Level (test code = 2028-9) 29 22-29 [facility]rum or plasma anion vfz6088-87-62 12:40:00* Test Item Value Reference Range Interpretation Comments Anion Gap (test code = 97755-3) 14.6 8-16 [facility] or plasma urea nitrogen measurement (mass/volume)2019-12-02 12:40:00* Test Item Value Reference Range Interpretation Comments Blood Urea Nitrogen (test code = 3094-0) 34 7-26 [facility]ererum or plasma creatinine measurement (mass/volume)2019-12-02 12:40:00* Test Item Value Reference Range Interpretation Comments Creatinine (test code = 2160-0) 0.70 0.72-1.25 [facility]ererum or plasma urea nitrogen/creatinine mass yooix4557-78-87 12:40:00* Test Item Value Reference Range Interpretation Comments BUN/Creatinine Ratio (test code = 3097-3) 49 6-25 [facility] LancasterEstimated glomerular filtration rate (GFR) krpbmnjmnayay9878-45-48 12:40:00* Test Item Value Reference Range Interpretation Comments Estimat Glomerular Filtration Rate (test code = 595311504) > 60 >60 Ranges were taken from the National Kidney Disease Education Program and the [facility] Foundation literature.Reference ranges:60 or greater: Evyljq87-12 ( for 3 consecutive months): Chronic kidney disease 15 or less: Kidney failureCrescent Medical Center LancasterGlucose zqilcdsvwkn8770-71-42 12:40:00* Test Item Value Reference Range Interpretation Comments Glucose Level (test code = WUC7892) 104 74-118 [facility] or plasma calcium measurement (mass/volume)2019-12-02 12:40:00* Test Item Value Reference Range Interpretation Comments Calcium Level (test code = 37195-7) 8.6 8.4-10.2 [facility]ererum or plasma total bilirubin measurement (mass/volume)2019-12-02 12:40:00* Test Item Value Reference Range Interpretation Comments Total Bilirubin (test code = 1975-2) 0.4 0.2-1.2 [facility] LancasterFluoroscopic procedure less than one hour hgjehzcd4590-36-79 12:40:00* Test Item Value Reference Range Interpretation Comments Aspartate Amino Transf (AST/SGOT) (test code = Aspartate Amino Transf (AST/SGOT)) 61 5-34 [facility]rum or plasma alanine aminotransferase measurement (enzymatic activity/volume)2019-12-02 12:40:00* Test Item Value Reference Range Interpretation Comments Alanine Aminotransferase (ALT/SGPT) (test code = 1742-6) 67 0-55 [facility]rum or plasma protein measurement (mass/volume)2019-12-02 12:40:00* Test Item Value Reference Range Interpretation Comments Total Protein (test code = 2885-2) 7.9 6.5-8.1 [facility]rum or plasma albumin measurement (mass/volume)2019-12-02 12:40:00* Test Item Value Reference Range Interpretation Comments Albumin (test code = 1751-7) 2.9 3.5-5.0 [facility] LancasterPlasma globulin measurement (mass/volume) 2019-12-02 12:40:00* Test Item Value Reference Range Interpretation Comments Globulin (test code = 53498-1) 5.0 2.3-3.5 [facility]ererum or plasma albumin/globulin mass hlljw4327-79-34 12:40:00* Test Item Value Reference Range Interpretation Comments Albumin/Globulin Ratio (test code = 1759-0) 0.6 0.8-2.0 [facility]ererum or plasma alkaline phosphatase measurement (enzymatic activity/volume)2019-12-02 12:40:00* Test Item Value Reference Range Interpretation Comments Alkaline Phosphatase (test code = 6768-6) 117 40-150 [facility]ererum or plasma creatine kinase measurement (enzymatic activity/volume)2019-12-02 12:40:00* Test Item Value Reference Range Interpretation Comments Creatine Kinase (test code = 2157-6) 47 30-200 [facility]ererum or plasma creatine kinase MB measurement (mass/volume)2019-12-02 12:40:00* Test Item Value Reference Range Interpretation Comments Creatine Kinase MB (test code = 10298-8) 0.60 0-5.0 [facility] LancasterTroponin I measurement by highly sensitive enzyme qhosumwyhwn2521-85-97 12:40:00* Test Item Value Reference Range Interpretation Comments Troponin I (test code = 79546-3) 0.002 0-0.300 [facility] leukocytes automated count (number/volume)2019-12-02 12:40:00* Test Item Value Reference Range Interpretation Comments White Blood Count (test code = 6690-2) 5.19 4.8-10.8 [facility] LancasterB[facility] erythrocytes automated count (number/volume)2019-12-02 12:40:00* Test Item Value Reference Range Interpretation Comments Red Blood Count (test code = 789-8) 4.39 4.3-5.7 [facility] LancasterBlood hemoglobin measurement (moles/volume)2019-12-02 12:40:00* Test Item Value Reference Range Interpretation Comments Hemoglobin (test code = 76369-4) 12.6 14.0-18.0 [facility] LancasterAutomated blood hematocrit (volume fraction)2019-12-02 12:40:00* Test Item Value Reference Range Interpretation Comments Hematocrit (test code = 4544-3) 43.1 38.2-49.6 [facility] LancasterAutomated erythrocyte mean corpuscular tecjkw9883-01-91 12:40:00* Test Item Value Reference Range Interpretation Comments Mean Corpuscular Volume (test code = 787-2) 98.2 81-99 [facility] LancasterAutomated erythrocyte mean corpuscular hemoglobin (mass per erythrocyte)2019-12-02 12:40:00* Test Item Value Reference Range Interpretation Comments Mean Corpuscular Hemoglobin (test code = 785-6) 28.7 28-32 [facility] LancasterAutomated erythrocyte mean corpuscular hemoglobin concentration measurement (mass/volume)2019-12-02 12:40:00* Test Item Value Reference Range Interpretation Comments Mean Corpuscular Hemoglobin Concent (test code = 786-4) 29.2 31-35 [facility] LancasterRDW RwsUg-Ltd6446-82-24 12:40:00* Test Item Value Reference Range Interpretation Comments Red Cell Distribution Width (test code = 66984-6) 13.4 11.7 -14.4 [facility] LancasterAutomated blood platelet count (count/volume)2019-12-02 12:40:00* Test Item Value Reference Range Interpretation Comments Platelet Count (test code = 777-3) 69 140-360 [facility] LancasterAutblowing rock hospitaled blood segmented neutrophil count as percentage of total cnqwmwgtlk4205-50-01 12:40:00* Test Item Value Reference Range Interpretation Comments Neutrophils (%) (Auto) (test code = 78749-7) 61.1 38.7-80.0 [facility] LancasterAutomated blood lymphocyte count as percentage ot total xvltqxltuy3568-16-85 12:40:00* Test Item Value Reference Range Interpretation Comments Lymphocytes (%) (Auto) (test code = 736-9) 28.7 18.0-39.1 [facility] LancasterAutomated blood monocyte count as percentage of total zttjduwexh5935-36-25 12:40:00* Test Item Value Reference Range Interpretation Comments Monocytes (%) (Auto) (test code = 5905-5) 9.4 4.4-11.3 [facility] LancasterAutomated blood eosinophil count as percentage of total chyyrnirit9125-65-09 12:40:00* Test Item Value Reference Range Interpretation Comments Eosinophils (%) (Auto) (test code = 713-8) 0.2 0.0-6.0 [facility] LancasterAutomated blood basophil count as percentage of total wjsofffcpk3784-93-65 12:40:00* Test Item Value Reference Range Interpretation Comments Basophils (%) (Auto) (test code = 706-2) 0.2 0.0-1.0 [facility] LancasterFluoroscopic procedure less than one hour [id number] 12:40:00* Test Item Value Reference Range Interpretation Comments IM GRANULOCYTES % (test code = IM GRANULOCYTES %) 0.4 0.0- 1.0 [facility] LancasterAutomated blood neutrophil count 2019-12-02 12:40:00* Test Item Value Reference Range Interpretation Comments Neutrophils # (Auto) (test code = 751-8) 3.2 2.1-6.9 [facility] LancasterBlood lymphocytes count (number/volume) 2019-12-02 12:40:00* Test Item Value Reference Range Interpretation Comments Lymphocytes # (Auto) (test code = 10246-0) 1.5 1.0-3.2 [facility] monocytes automated count (number/volume)2019-12-02 12:40:00* Test Item Value Reference Range Interpretation Comments Monocytes # (Auto) (test code = 742-7) 0.5 0.2-0.8 [facility] LancasterAutomated blood eosinophil count 2019-12-02 12:40:00* Test Item Value Reference Range Interpretation Comments Eosinophils # (Auto) (test code = 711-2) 0.0 0.0-0.4 [facility] LancasterAutomated blood basophil count (count/volume)2019-12-02 12:40:00* Test Item Value Reference Range Interpretation Comments Basophils # (Auto) (test code = 704-7) 0.0 0.0-0.1 [facility] LancasterFluoroscopic procedure less than one hour [id number] 12:40:00* Test Item Value Reference Range Interpretation Comments Absolute Immature Granulocyte (auto (mabel t code = Absolute Immature Granulocyte (auto) 0.02 0-0.1 [facility] LancasterProthrombin time (PT) in platelet poor plasma by coagulation hiobd0848-06-26 12:40:00* Test Item Value Reference Range Interpretation Comments Prothrombin Time (test code = 5902-2) 13.9 11.9-14.5 [facility] LancasterINR in Platelet poor plasma by Coagulation waqtv2031-95-47 12:40:00* Test Item Value Reference Range Interpretation Comments Prothromb Time International Ratio (test code = 6301-6) 1.02 Oral Anticoagulant Therapy INR Values:1. Low Intensity Therapy 1.5 - 2.02 . Moderate Intensity Therapy 2.0 - 3.03. High Intensity Therapy(1) 2.5 - 3. 54. High Intensity Therapy(2) 3.0 - 4.05. Panic Value INR > 5.0 [facility] LancasterActivated partial thromboplastin time (aPTT) in platelet poor plasma by coagulation gvxsn5982-08-04 12:40:00* Test Item Value Reference Range Interpretation Comments Activated Partial Thromboplast Time (test code = 97050-5) 33.3 23.8-35.5 [facility] LancasterUrine color dsnwkopkbmlua4219-57-13 12:40:00* Test Item Value Reference Range Interpretation Comments Urine Color (test code = 5778-6) STRAW YELLOW [facility] LancasterUrine xuokfwi7413-97-93 12:40:00* Test Item Value Reference Range Interpretation Comments Urine Clarity (test code = 17702-9) SL CLOUDY [facility] by Test strip 2019-12-02 12:40:00* Test Item Value Reference Range Interpretation Comments Urine Specific [place] (test code = 5811-5) 1.020 1.010-1.02 5 [facility] LancasterUrine pH measurement by automated test [id number] 12:40:00* Test Item Value Reference Range Interpretation Comments Urine pH (test code = 63534-2) 5.5 5-7 [facility] LancasterUrine leukocyte esterase detection by jgsrfdpp5057-46-99 12:40:00* Test Item Value Reference Range Interpretation Comments Urine Leukocyte Esterase (test code = 5799-2) NEGATIVE NEGATIVE [facility] LancasterUrine nitrite jcergkxlo9559-28-60 12:40:00* Test Item Value Reference Range Interpretation Comments Urine Nitrite (test code = 88512-0) NEGATIVE NEGATIVE [facility] LancasterUrine protein measurement by test strip (mass/volume)2019-12-02 12:40:00* Test Item Value Reference Range Interpretation Comments Urine Protein (test code = 5804-0) 2+ NEGATIVE [facility] LancasterUrine glucose mcrradglf8262-93-37 12:40:00* Test Item Value Reference Range Interpretation Comments Urine Glucose (UA) (test code = 2349-9) NEGATIVE NEGATIVE [facility] LancasterUrine ketones detection by automated test dqjge2430-05-13 12:40:00* Test Item Value Reference Range Interpretation Comments Urine Ketones (test code = 54316-1) NEGATIVE NEGATIVE [facility] LancasterUrine urobilinogen measurement by test strip (mass/volume)2019-12-02 12:40:00* Test Item Value Reference Range Interpretation Comments Urine Urobilinogen (test code = 25375-1) 1 0.2-1 [facility] LancasterUrine total bilirubin measurement (mass/volume)2019-12-02 12:40:00* Test Item Value Reference Range Interpretation Comments Urine Bilirubin (test code = 1978-6) NEGATIVE NEGATIVE [facility] LancasterUrine erythrocytes yuxonsbxp2101-37-73 12:40:00* Test Item Value Reference Range Interpretation Comments Urine Blood (test code = 06322-5) MODERATE NEGATIVE [facility] LancasterAutomated urine sediment leukocyte count by microscopy (number/high power field)2019-12-02 12:40:00* Test Item Value Reference Range Interpretation Comments Urine WBC (test code = 5821-4) NONE 0-5 [facility] LancasterErythrocytes detection in urine sediment by light gsliixmxhz9054-71-64 12:40:00* Test Item Value Reference Range Interpretation Comments Urine RBC (test code = 76594-7) 6-10 0-5 [facility] LancasterBacteria detection in urine sediment by light vngydlmrsz6069-23-49 12:40:00* Test Item Value Reference Range Interpretation Comments Urine Bacteria (test code = 32359-6) MODERATE NONE [facility] LancasterEpithelial cells detection in urine sediment by light lbxwoujbuu1372-47-74 12:40:00* Test Item Value Reference Range Interpretation Comments Urine Epithelial Cells (test code = 99860-1) FEW NONE [facility]ererum or plasma sodium measurement (moles/volume)2019-12-02 12:40:00* Test Item Value Reference Range Interpretation Comments Sodium Level (test code = 2951-2) 160 136-145 [facility]ererum or plasma potassium measurement (moles/volume)2019-12-02 12:40:00* Test Item Value Reference Range Interpretation Comments Potassium Level (test code = 2823-3) 4.6 3.5-5.1 [facility]ererum or plasma chloride measurement (moles/volume)2019-12-02 12:40:00* Test Item Value Reference Range Interpretation Comments Chloride Level (test code = 2075-0) 121 98-107 [facility]ererum or plasma carbon dioxide, total measurement (moles/volume)2019-12-02 12:40:00* Test Item Value Reference Range Interpretation Comments Carbon Dioxide Level (test code = 2028-9) 29 22-29 [facility]ererum or plasma anion ste6118-94-77 12:40:00* Test Item Value Reference Range Interpretation Comments Anion Gap (test code = 85374-5) 14.6 8-16 [facility]rum or [facility] urea nitrogen measurement (mass/volume)2019-12-02 12:40:00* Test Item Value Reference Range Interpretation Comments Blood Urea Nitrogen (test code = 3094-0) 34 7-26 [facility]ererum or plasma creatinine measurement (mass/volume)2019-12-02 12:40:00* Test Item Value Reference Range Interpretation Comments Creatinine (test code = 2160-0) 0.70 0.72-1.25 [facility]ererum or plasma urea nitrogen/creatinine mass vxwaj6179-05-38 12:40:00* Test Item Value Reference Range Interpretation Comments BUN/Creatinine Ratio (test code = 3097-3) 49 6-25 [facility] LancasterEstimated glomerular filtration rate (GFR) xiuaqztebqhvm6536-38-70 12:40:00* Test Item Value Reference Range Interpretation Comments Estimat Glomerular Filtration Rate (test code = 052767359) > 60 >60 Ranges were taken from the National Kidney Disease Education Program and the [facility] Foundation literature.Reference ranges:60 or greater: Eqfsew28-36 ( for 3 consecutive months): Chronic kidney disease 15 or less: Kidney failureCrescent Medical Center LancasterGlucose wgvkgveltsd2669-09-95 12:40:00* Test Item Value Reference Range Interpretation Comments Glucose Level (test code = ZPN4784) 104 74-118 [facility]ererum or plasma calcium measurement (mass/volume)2019-12-02 12:40:00* Test Item Value Reference Range Interpretation Comments Calcium Level (test code = 01111-9) 8.6 8.4-10.2 [facility]ererum or plasma total bilirubin measurement (mass/volume)2019-12-02 12:40:00* Test Item Value Reference Range Interpretation Comments Total Bilirubin (test code = 1975-2) 0.4 0.2-1.2 [facility] LancasterFluoroscopic procedure less than one hour qbceeyhn3184-67-07 12:40:00* Test Item Value Reference Range Interpretation Comments Aspartate Amino Transf (AST/SGOT) (test code = Aspartate Amino Transf (AST/SGOT)) 61 5-34 [facility]ererum or plasma alanine aminotransferase measurement (enzymatic activity/volume)2019-12-02 12:40:00* Test Item Value Reference Range Interpretation Comments Alanine Aminotransferase (ALT/SGPT) (test code = 1742-6) 67 0-55 [facility]ererum or plasma protein measurement (mass/volume)2019-12-02 12:40:00* Test Item Value Reference Range Interpretation Comments Total Protein (test code = 2885-2) 7.9 6.5-8.1 [facility]ererum or plasma albumin measurement (mass/volume)2019-12-02 12:40:00* Test Item Value Reference Range Interpretation Comments Albumin (test code = 1751-7) 2.9 3.5-5.0 [facility] LancasterPlasma globulin measurement (mass/volume) 2019-12-02 12:40:00* Test Item Value Reference Range Interpretation Comments Globulin (test code = 19408-7) 5.0 2.3-3.5 [facility]ererum or plasma albumin/globulin mass uabgu2910-28-19 12:40:00* Test Item Value Reference Range Interpretation Comments Albumin/Globulin Ratio (test code = 1759-0) 0.6 0.8-2.0 [facility]ererum or plasma alkaline phosphatase measurement (enzymatic activity/volume)2019-12-02 12:40:00* Test Item Value Reference Range Interpretation Comments Alkaline Phosphatase (test code = 6768-6) 117 40-150 [facility]ererum or plasma creatine kinase measurement (enzymatic activity/volume)2019-12-02 12:40:00* Test Item Value Reference Range Interpretation Comments Creatine Kinase (test code = 2157-6) 47 30-200 [facility]ererum or plasma creatine kinase MB measurement (mass/volume)2019-12-02 12:40:00* Test Item Value Reference Range Interpretation Comments Creatine Kinase MB (test code = 43501-1) 0.60 0-5.0 [facility] LancasterTroponin I measurement by highly sensitive enzyme pwflvocvaes1444-33-33 12:40:00* Test Item Value Reference Range Interpretation Comments Troponin I (test code = 27375-2) 0.002 0-0.300 [facility] LancasterBlood leukocytes automated count (number/volume)2019-12-02 12:40:00* Test Item Value Reference Range Interpretation Comments White Blood Count (test code = 6690-2) 5.19 4.8-10.8 [facility] LancasterB[facility] erythrocytes automated count (number/volume)2019-12-02 12:40:00* Test Item Value Reference Range Interpretation Comments Red Blood Count (test code = 789-8) 4.39 4.3-5.7 [facility] LancasterBlood hemoglobin measurement (moles/volume)2019-12-02 12:40:00* Test Item Value Reference Range Interpretation Comments Hemoglobin (test code = 23680-5) 12.6 14.0-18.0 [facility] LancasterAutomated blood hematocrit (volume fraction)2019-12-02 12:40:00* Test Item Value Reference Range Interpretation Comments Hematocrit (test code = 4544-3) 43.1 38.2-49.6 [facility] LancasterAutomated erythrocyte mean corpuscular gobwgj3910-50-20 12:40:00* Test Item Value Reference Range Interpretation Comments Mean Corpuscular Volume (test code = 787-2) 98.2 81-99 [facility] LancasterAutomated erythrocyte mean corpuscular hemoglobin (mass per erythrocyte)2019-12-02 12:40:00* Test Item Value Reference Range Interpretation Comments Mean Corpuscular Hemoglobin (test code = 785-6) 28.7 28-32 [facility] LancasterAutomated erythrocyte mean corpuscular hemoglobin concentration measurement (mass/volume)2019-12-02 12:40:00* Test Item Value Reference Range Interpretation Comments Mean Corpuscular Hemoglobin Concent (test code = 786-4) 29.2 31-35 [facility] LancasterRDW YgjDh-Bdn2515-90-24 12:40:00* Test Item Value Reference Range Interpretation Comments Red Cell Distribution Width (test code = 71433-5) 13.4 11.7 -14.4 [facility] LancasterAutblowing rock hospitaled blood platelet count (count/volume)2019-12-02 12:40:00* Test Item Value Reference Range Interpretation Comments Platelet Count (test code = 777-3) 69 140-360 [facility] LancasterAutomated blood segmented neutrophil count as percentage of total sedjwxdncf9449-71-78 12:40:00* Test Item Value Reference Range Interpretation Comments Neutrophils (%) (Auto) (test code = 32819-0) 61.1 38.7-80.0 [facility] LancasterAutomated blood lymphocyte count as percentage ot total uygzgneiby7438-01-55 12:40:00* Test Item Value Reference Range Interpretation Comments Lymphocytes (%) (Auto) (test code = 736-9) 28.7 18.0-39.1 [facility] LancasterAutomated blood monocyte count as percentage of total lbhaulvmwd7482-69-18 12:40:00* Test Item Value Reference Range Interpretation Comments Monocytes (%) (Auto) (test code = 5905-5) 9.4 4.4-11.3 [facility] LancasterAutomated blood eosinophil count as percentage of total ufbmsjhtja7060-40-17 12:40:00* Test Item Value Reference Range Interpretation Comments Eosinophils (%) (Auto) (test code = 713-8) 0.2 0.0-6.0 [facility] LancasterAutomated blood basophil count as percentage of total xdgovoivbo5708-63-64 12:40:00* Test Item Value Reference Range Interpretation Comments Basophils (%) (Auto) (test code = 706-2) 0.2 0.0-1.0 [facility] LancasterFluoroscopic procedure less than one hour wbjgbavt6740-68-09 12:40:00* Test Item Value Reference Range Interpretation Comments IM GRANULOCYTES % (test code = IM GRANULOCYTES %) 0.4 0.0- 1.0 [facility] LancasterAutomated blood neutrophil count 2019-12-02 12:40:00* Test Item Value Reference Range Interpretation Comments Neutrophils # (Auto) (test code = 751-8) 3.2 2.1-6.9 [facility] LancasterBlood lymphocytes count (number/volume) 2019-12-02 12:40:00* Test Item Value Reference Range Interpretation Comments Lymphocytes # (Auto) (test code = 37161-0) 1.5 1.0-3.2 [facility] LancasterBlood monocytes automated count (number/volume)2019-12-02 12:40:00* Test Item Value Reference Range Interpretation Comments Monocytes # (Auto) (test code = 742-7) 0.5 0.2-0.8 [facility] LancasterAutomated blood eosinophil count 2019-12-02 12:40:00* Test Item Value Reference Range Interpretation Comments Eosinophils # (Auto) (test code = 711-2) 0.0 0.0-0.4 [facility] LancasterAutomated blood basophil count (count/volume)2019-12-02 12:40:00* Test Item Value Reference Range Interpretation Comments Basophils # (Auto) (test code = 704-7) 0.0 0.0-0.1 [facility] LancasterFluoroscopic procedure less than one hour nqgzxufk9172-09-23 12:40:00* Test Item Value Reference Range Interpretation Comments Absolute Immature Granulocyte (auto (mabel t code = Absolute Immature Granulocyte (auto) 0.02 0-0.1 [facility] LancasterProthrombin time (PT) in platelet poor plasma by coagulation isxaw3870-57-81 12:40:00* Test Item Value Reference Range Interpretation Comments Prothrombin Time (test code = 5902-2) 13.9 11.9-14.5 [facility] LancasterINR in Platelet poor plasma by Coagulation tbmmn0948-17-96 12:40:00* Test Item Value Reference Range Interpretation Comments Prothromb Time International Ratio (test code = 6301-6) 1.02 Oral Anticoagulant Therapy INR Values:1. Low Intensity Therapy 1.5 - 2.02 . Moderate Intensity Therapy 2.0 - 3.03. High Intensity Therapy(1) 2.5 - 3. 54. High Intensity Therapy(2) 3.0 - 4.05. Panic Value INR > 5.0 [facility] LancasterActivated partial thromboplastin time (aPTT) in platelet poor plasma by coagulation pqxah7676-91-42 12:40:00* Test Item Value Reference Range Interpretation Comments Activated Partial Thromboplast Time (test code = 03223-2) 33.3 23.8-35.5 [facility] LancasterUrine color ndsfsavbcxkuw9868-27-86 12:40:00* Test Item Value Reference Range Interpretation Comments Urine Color (test code = 5778-6) STRAW YELLOW [facility] LancasterUrine srtbypy2404-10-74 12:40:00* Test Item Value Reference Range Interpretation Comments Urine Clarity (test code = 08250-8) SL CLOUDY CLEAR [facility] Centerpecific gravity of Urine by Test strip 2019-12-02 12:40:00* Test Item Value Reference Range Interpretation Comments Urine Specific [place] (test code = 5811-5) 1.020 1.010-1.02 5 [facility] LancasterUrine pH measurement by automated test fcqbz5204-74-94 12:40:00* Test Item Value Reference Range Interpretation Comments Urine pH (test code = 04976-2) 5.5 5-7 [facility] LancasterUrine leukocyte esterase detection by ibkwfcfe5444-30-93 12:40:00* Test Item Value Reference Range Interpretation Comments Urine Leukocyte Esterase (test code = 5799-2) NEGATIVE NEGATIVE [facility] LancasterUrine nitrite raviejixm3857-18-67 12:40:00* Test Item Value Reference Range Interpretation Comments Urine Nitrite (test code = 39568-8) NEGATIVE NEGATIVE [facility] LancasterUrine protein measurement by test strip (mass/volume)2019-12-02 12:40:00* Test Item Value Reference Range Interpretation Comments Urine Protein (test code = 5804-0) 2+ NEGATIVE [facility] LancasterUrine glucose bffilayzd2639-59-43 12:40:00* Test Item Value Reference Range Interpretation Comments Urine Glucose (UA) (test code = 2349-9) NEGATIVE NEGATIVE [facility] LancasterUrine ketones detection by automated test pbgux0329-51-99 12:40:00* Test Item Value Reference Range Interpretation Comments Urine Ketones (test code = 64935-5) NEGATIVE NEGATIVE [facility] LancasterUrine urobilinogen measurement by test strip (mass/volume)2019-12-02 12:40:00* Test Item Value Reference Range Interpretation Comments Urine Urobilinogen (test code = 78940-1) 1 0.2-1 [facility] LancasterUrine total bilirubin measurement (mass/volume)2019-12-02 12:40:00* Test Item Value Reference Range Interpretation Comments Urine Bilirubin (test code = 1978-6) NEGATIVE NEGATIVE [facility] LancasterUrine erythrocytes nvrmsikpz8190-52-21 12:40:00* Test Item Value Reference Range Interpretation Comments Urine Blood (test code = 84469-7) MODERATE NEGATIVE [facility] LancasterAutomated urine sediment leukocyte count by microscopy (number/high power field)2019-12-02 12:40:00* Test Item Value Reference Range Interpretation Comments Urine WBC (test code = 5821-4) NONE 0-5 [facility] LancasterErythrocytes detection in urine sediment by light rytyoyfdbj3979-31-26 12:40:00* Test Item Value Reference Range Interpretation Comments Urine RBC (test code = 31490-7) 6-10 0-5 [facility] LancasterBacteria detection in urine sediment by light eefomruenv8872-83-97 12:40:00* Test Item Value Reference Range Interpretation Comments Urine Bacteria (test code = 27980-9) MODERATE NONE [facility] LancasterEpithelial cells detection in urine sediment by light kexcqguodq9522-57-33 12:40:00* Test Item Value Reference Range Interpretation Comments Urine Epithelial Cells (test code = 20073-4) FEW NONE [facility]ererum or plasma sodium measurement (moles/volume)2019-12-02 12:40:00* Test Item Value Reference Range Interpretation Comments Sodium Level (test code = 2951-2) 160 136-145 [facility]ererum or plasma potassium measurement (moles/volume)2019-12-02 12:40:00* Test Item Value Reference Range Interpretation Comments Potassium Level (test code = 2823-3) 4.6 3.5-5.1 [facility]rum or plasma chloride measurement (moles/volume)2019-12-02 12:40:00* Test Item Value Reference Range Interpretation Comments Chloride Level (test code = 2075-0) 121 98-107 [facility]ererum or plasma carbon dioxide, total measurement (moles/volume)2019-12-02 12:40:00* Test Item Value Reference Range Interpretation Comments Carbon Dioxide Level (test code = 2028-9) 29 22-29 [facility]rum or plasma anion dqw2595-78-36 12:40:00* Test Item Value Reference Range Interpretation Comments Anion Gap (test code = 91500-6) 14.6 8-16 [facility] or plasma urea nitrogen measurement (mass/volume)2019-12-02 12:40:00* Test Item Value Reference Range Interpretation Comments Blood Urea Nitrogen (test code = 3094-0) 34 7-26 [facility]rum or plasma creatinine measurement (mass/volume)2019-12-02 12:40:00* Test Item Value Reference Range Interpretation Comments Creatinine (test code = 2160-0) 0.70 0.72-1.25 [facility]rum or plasma urea nitrogen/creatinine mass nsjhb9381-67-92 12:40:00* Test Item Value Reference Range Interpretation Comments BUN/Creatinine Ratio (test code = 3097-3) 49 6-25 [facility] LancasterEstimated glomerular filtration rate (GFR) santemhqwgqpu7592-61-90 12:40:00* Test Item Value Reference Range Interpretation Comments Estimat Glomerular Filtration Rate (test code = 122809554) > 60 >60 Ranges were taken from the National Kidney Disease Education Program and the [facility] Kidney Foundation literature.Reference ranges:60 or greater: Icqkyy58-13 ( for 3 consecutive months): Chronic kidney disease 15 or less: Kidney failureCrescent Medical Center LancasterGlucose fbidynnqgjb6032-43-65 12:40:00* Test Item Value Reference Range Interpretation Comments Glucose Level (test code = KGS3772) 104 74-118 [facility] or plasma calcium measurement (mass/volume)2019-12-02 12:40:00* Test Item Value Reference Range Interpretation Comments Calcium Level (test code = 30184-2) 8.6 8.4-10.2 [facility]ererum or plasma total bilirubin measurement (mass/volume)2019-12-02 12:40:00* Test Item Value Reference Range Interpretation Comments Total Bilirubin (test code = 1975-2) 0.4 0.2-1.2 [facility] LancasterFluoroscopic procedure less than one hour xyanfztp1996-10-09 12:40:00* Test Item Value Reference Range Interpretation Comments Aspartate Amino Transf (AST/SGOT) (test code = Aspartate Amino Transf (AST/SGOT)) 61 5-34 [facility]ererum or plasma alanine aminotransferase measurement (enzymatic activity/volume)2019-12-02 12:40:00* Test Item Value Reference Range Interpretation Comments Alanine Aminotransferase (ALT/SGPT) (test code = 1742-6) 67 0-55 [facility]ererum or plasma protein measurement (mass/volume)2019-12-02 12:40:00* Test Item Value Reference Range Interpretation Comments Total Protein (test code = 2885-2) 7.9 6.5-8.1 [facility]ererum or plasma albumin measurement (mass/volume)2019-12-02 12:40:00* Test Item Value Reference Range Interpretation Comments Albumin (test code = 1751-7) 2.9 3.5-5.0 [facility] LancasterPlasma globulin measurement (mass/volume) 2019-12-02 12:40:00* Test Item Value Reference Range Interpretation Comments Globulin (test code = 26088-3) 5.0 2.3-3.5 [facility]ererum or plasma albumin/globulin mass ojxum0380-42-09 12:40:00* Test Item Value Reference Range Interpretation Comments Albumin/Globulin Ratio (test code = 1759-0) 0.6 0.8-2.0 [facility]ererum or plasma alkaline phosphatase measurement (enzymatic activity/volume)2019-12-02 12:40:00* Test Item Value Reference Range Interpretation Comments Alkaline Phosphatase (test code = 6768-6) 117 40-150 [facility]ererum or plasma creatine kinase measurement (enzymatic activity/volume)2019-12-02 12:40:00* Test Item Value Reference Range Interpretation Comments Creatine Kinase (test code = 2157-6) 47 30-200 [facility]ererum or plasma creatine kinase MB measurement (mass/volume)2019-12-02 12:40:00* Test Item Value Reference Range Interpretation Comments Creatine Kinase MB (test code = 19891-5) 0.60 0-5.0 [facility] LancasterTroponin I measurement by highly sensitive enzyme lzyotthyjqa8299-57-13 12:40:00* Test Item Value Reference Range Interpretation Comments Troponin I (test code = 81160-5) 0.002 0-0.300 [facility] LancasterBlood leukocytes automated count (number/volume)2019-12-02 12:40:00* Test Item Value Reference Range Interpretation Comments White Blood Count (test code = 6690-2) 5.19 4.8-10.8 [facility] LancasterBlood erythrocytes automated count (number/volume)2019-12-02 12:40:00* Test Item Value Reference Range Interpretation Comments Red Blood Count (test code = 789-8) 4.39 4.3-5.7 [facility] LancasterBlood hemoglobin measurement (moles/volume)2019-12-02 12:40:00* Test Item Value Reference Range Interpretation Comments Hemoglobin (test code = 68533-5) 12.6 14.0-18.0 [facility] LancasterAutomated blood hematocrit (volume fraction)2019-12-02 12:40:00* Test Item Value Reference Range Interpretation Comments Hematocrit (test code = 4544-3) 43.1 38.2-49.6 [facility] LancasterAutomated erythrocyte mean corpuscular wrpkrf0536-26-39 12:40:00* Test Item Value Reference Range Interpretation Comments Mean Corpuscular Volume (test code = 787-2) 98.2 81-99 [facility] LancasterAutomated erythrocyte mean corpuscular hemoglobin (mass per erythrocyte)2019-12-02 12:40:00* Test Item Value Reference Range Interpretation Comments Mean Corpuscular Hemoglobin (test code = 785-6) 28.7 28-32 [facility] LancasterAutomated erythrocyte mean corpuscular hemoglobin concentration measurement (mass/volume)2019-12-02 12:40:00* Test Item Value Reference Range Interpretation Comments Mean Corpuscular Hemoglobin Concent (test code = 786-4) 29.2 31-35 [facility] LancasterRDW MnvPl-Xqn1215-66-24 12:40:00* Test Item Value Reference Range Interpretation Comments Red Cell Distribution Width (test code = 83258-7) 13.4 11.7 -14.4 [facility] LancasterAutomated blood platelet count (count/volume)2019-12-02 12:40:00* Test Item Value Reference Range Interpretation Comments Platelet Count (test code = 777-3) 69 140-360 [facility] LancasterAutomated blood segmented neutrophil count as percentage of total cmihqrttgg4462-22-10 12:40:00* Test Item Value Reference Range Interpretation Comments Neutrophils (%) (Auto) (test code = 57667-3) 61.1 38.7-80.0 [facility] LancasterAutomated blood lymphocyte count as percentage ot total dhvlyeprcr3941-27-44 12:40:00* Test Item Value Reference Range Interpretation Comments Lymphocytes (%) (Auto) (test code = 736-9) 28.7 18.0-39.1 [facility] LancasterAutomated blood monocyte count as percentage of total trbxayouhu6744-39-26 12:40:00* Test Item Value Reference Range Interpretation Comments Monocytes (%) (Auto) (test code = 5905-5) 9.4 4.4-11.3 [facility] LancasterAutomated blood eosinophil count as percentage of total xcfbfwofey5405-23-64 12:40:00* Test Item Value Reference Range Interpretation Comments Eosinophils (%) (Auto) (test code = 713-8) 0.2 0.0-6.0 [facility] LancasterAutomated blood basophil count as percentage of total zplouizsfu5071-74-83 12:40:00* Test Item Value Reference Range Interpretation Comments Basophils (%) (Auto) (test code = 706-2) 0.2 0.0-1.0 [facility] LancasterFluoroscopic procedure less than one hour zcfrxnfu0897-56-42 12:40:00* Test Item Value Reference Range Interpretation Comments IM GRANULOCYTES % (test code = IM GRANULOCYTES %) 0.4 0.0- 1.0 [facility] LancasterAutomated blood neutrophil count 2019-12-02 12:40:00* Test Item Value Reference Range Interpretation Comments Neutrophils # (Auto) (test code = 751-8) 3.2 2.1-6.9 [facility] LancasterBlood lymphocytes count (number/volume) 2019-12-02 12:40:00* Test Item Value Reference Range Interpretation Comments Lymphocytes # (Auto) (test code = 63583-8) 1.5 1.0-3.2 [facility] LancasterBlood monocytes automated count (number/volume)2019-12-02 12:40:00* Test Item Value Reference Range Interpretation Comments Monocytes # (Auto) (test code = 742-7) 0.5 0.2-0.8 [facility] LancasterAutomated blood eosinophil count 2019-12-02 12:40:00* Test Item Value Reference Range Interpretation Comments Eosinophils # (Auto) (test code = 711-2) 0.0 0.0-0.4 [facility] LancasterAutomated blood basophil count (count/volume)2019-12-02 12:40:00* Test Item Value Reference Range Interpretation Comments Basophils # (Auto) (test code = 704-7) 0.0 0.0-0.1 [facility] LancasterFluoroscopic procedure less than one hour dbenifcf8190-48-05 12:40:00* Test Item Value Reference Range Interpretation Comments Absolute Immature Granulocyte (auto (mabel t code = Absolute Immature Granulocyte (auto) 0.02 0-0.1 [facility] LancasterProthrombin time (PT) in platelet poor plasma by coagulation ewsle4081-42-45 12:40:00* Test Item Value Reference Range Interpretation Comments Prothrombin Time (test code = 5902-2) 13.9 11.9-14.5 [facility] LancasterINR in Platelet poor plasma by Coagulation hrlxi7116-08-48 12:40:00* Test Item Value Reference Range Interpretation Comments Prothromb Time International Ratio (test code = 6301-6) 1.02 Oral Anticoagulant Therapy INR Values:1. Low Intensity Therapy 1.5 - 2.02 . Moderate Intensity Therapy 2.0 - 3.03. High Intensity Therapy(1) 2.5 - 3. 54. High Intensity Therapy(2) 3.0 - 4.05. Panic Value INR > 5.0 [facility] LancasterActivated partial thromboplastin time (aPTT) in platelet poor plasma by coagulation ndkci5901-98-45 12:40:00* Test Item Value Reference Range Interpretation Comments Activated Partial Thromboplast Time (test code = 22382-9) 33.3 23.8-35.5 [facility] LancasterUrine color bighcmctythik4772-24-91 12:40:00* Test Item Value Reference Range Interpretation Comments Urine Color (test code = 5778-6) STRAW YELLOW [facility] LancasterUrine fherzkn2320-13-32 12:40:00* Test Item Value Reference Range Interpretation Comments Urine Clarity (test code = 60438-7) SL CLOUDY CLEAR [facility] gravity of Urine by Test strip 2019-12-02 12:40:00* Test Item Value Reference Range Interpretation Comments Urine Specific Perley (test code = 5811-5) 1.020 1.010-1.02 5 [facility] LancasterUrine pH measurement by automated test trsgw5916-95-21 12:40:00* Test Item Value Reference Range Interpretation Comments Urine pH (test code = 72514-9) 5.5 5-7 [facility] LancasterUrine leukocyte esterase detection by byqynmgh2548-54-54 12:40:00* Test Item Value Reference Range Interpretation Comments Urine Leukocyte Esterase (test code = 5799-2) NEGATIVE NEGATIVE [facility] LancasterUrine nitrite toalvzvze9513-67-71 12:40:00* Test Item Value Reference Range Interpretation Comments Urine Nitrite (test code = 60024-8) NEGATIVE NEGATIVE [facility] LancasterUrine protein measurement by test strip (mass/volume)2019-12-02 12:40:00* Test Item Value Reference Range Interpretation Comments Urine Protein (test code = 5804-0) 2+ NEGATIVE [facility] LancasterUrine glucose vitizornk3508-42-60 12:40:00* Test Item Value Reference Range Interpretation Comments Urine Glucose (UA) (test code = 2349-9) NEGATIVE NEGATIVE [facility] LancasterUrine ketones detection by automated test ziuxr8982-74-37 12:40:00* Test Item Value Reference Range Interpretation Comments Urine Ketones (test code = 39358-5) NEGATIVE NEGATIVE [facility] LancasterUrine urobilinogen measurement by test strip (mass/volume)2019-12-02 12:40:00* Test Item Value Reference Range Interpretation Comments Urine Urobilinogen (test code = 26027-5) 1 0.2-1 [facility] LancasterUrine total bilirubin measurement (mass/volume)2019-12-02 12:40:00* Test Item Value Reference Range Interpretation Comments Urine Bilirubin (test code = 1978-6) NEGATIVE NEGATIVE [facility] LancasterUrine erythrocytes gmaslvzxd2294-32-36 12:40:00* Test Item Value Reference Range Interpretation Comments Urine Blood (test code = 46384-9) MODERATE NEGATIVE [facility] LancasterAutomated urine sediment leukocyte count by microscopy (number/high power field)2019-12-02 12:40:00* Test Item Value Reference Range Interpretation Comments Urine WBC (test code = 5821-4) NONE 0-5 [facility] LancasterErythrocytes detection in urine sediment by light wqrxrhavrh9987-86-99 12:40:00* Test Item Value Reference Range Interpretation Comments Urine RBC (test code = 33802-9) 6-10 0-5 [facility] LancasterBacteria detection in urine sediment by light szapvofwsm7109-61-33 12:40:00* Test Item Value Reference Range Interpretation Comments Urine Bacteria (test code = 40766-6) MODERATE NONE [facility] LancasterEpithelial cells detection in urine sediment by light vnpgrihjqi2554-47-77 12:40:00* Test Item Value Reference Range Interpretation Comments Urine Epithelial Cells (test code = 98739-9) FEW NONE [facility]ererum or plasma sodium measurement (moles/volume)2019-12-02 12:40:00* Test Item Value Reference Range Interpretation Comments Sodium Level (test code = 2951-2) 160 136-145 [facility]rum or plasma potassium measurement (moles/volume)2019-12-02 12:40:00* Test Item Value Reference Range Interpretation Comments Potassium Level (test code = 2823-3) 4.6 3.5-5.1 [facility]rum or plasma chloride measurement (moles/volume)2019-12-02 12:40:00* Test Item Value Reference Range Interpretation Comments Chloride Level (test code = 2075-0) 121 98-107 [facility]ererum or plasma carbon dioxide, total measurement (moles/volume)2019-12-02 12:40:00* Test Item Value Reference Range Interpretation Comments Carbon Dioxide Level (test code = 2028-9) 29 22-29 [facility]rum or plasma anion kau0002-53-16 12:40:00* Test Item Value Reference Range Interpretation Comments Anion Gap (test code = 25868-1) 14.6 8-16 [facility] or plasma urea nitrogen measurement (mass/volume)2019-12-02 12:40:00* Test Item Value Reference Range Interpretation Comments Blood Urea Nitrogen (test code = 3094-0) 34 7-26 [facility]ererum or plasma creatinine measurement (mass/volume)2019-12-02 12:40:00* Test Item Value Reference Range Interpretation Comments Creatinine (test code = 2160-0) 0.70 0.72-1.25 [facility]ererum or plasma urea nitrogen/creatinine mass saxly0854-92-01 12:40:00* Test Item Value Reference Range Interpretation Comments BUN/Creatinine Ratio (test code = 3097-3) 49 6-25 [facility] LancasterEstimated glomerular filtration rate (GFR) dpeudfwrnxyfu6620-07-44 12:40:00* Test Item Value Reference Range Interpretation Comments Estimat Glomerular Filtration Rate (test code = 280673872) > 60 >60 Ranges were taken from the National Kidney Disease Education Program and the [facility] Kid[facility] Foundation literature.Reference ranges:60 or greater: Folrsu05-88 ( for 3 consecutive months): Chronic kidney disease 15 or less: Kidney failureCrescent Medical Center LancasterGlucose uqxyfdkjhoj9084-38-38 12:40:00* Test Item Value Reference Range Interpretation Comments Glucose Level (test code = EIW5066) 104 74-118 [facility]rum or plasma calcium measurement (mass/volume)2019-12-02 12:40:00* Test Item Value Reference Range Interpretation Comments Calcium Level (test code = 26093-3) 8.6 8.4-10.2 [facility]rum or plasma total bilirubin measurement (mass/volume)2019-12-02 12:40:00* Test Item Value Reference Range Interpretation Comments Total Bilirubin (test code = 1975-2) 0.4 0.2-1.2 [facility] LancasterFluoroscopic procedure less than one hour tzragypu9852-45-85 12:40:00* Test Item Value Reference Range Interpretation Comments Aspartate Amino Transf (AST/SGOT) (test code = Aspartate Amino Transf (AST/SGOT)) 61 5-34 [facility]ererum or plasma alanine aminotransferase measurement (enzymatic activity/volume)2019-12-02 12:40:00* Test Item Value Reference Range Interpretation Comments Alanine Aminotransferase (ALT/SGPT) (test code = 1742-6) 67 0-55 [facility]ererum or plasma protein measurement (mass/volume)2019-12-02 12:40:00* Test Item Value Reference Range Interpretation Comments Total Protein (test code = 2885-2) 7.9 6.5-8.1 [facility] Centererum or plasma albumin measurement (mass/volume)2019-12-02 12:40:00* Test Item Value Reference Range Interpretation Comments Albumin (test code = 1751-7) 2.9 3.5-5.0 [facility] LancasterPlasma globulin measurement (mass/volume) 2019-12-02 12:40:00* Test Item Value Reference Range Interpretation Comments Globulin (test code = 38074-0) 5.0 2.3-3.5 [facility]rum or plasma albumin/globulin mass efrfp4771-56-17 12:40:00* Test Item Value Reference Range Interpretation Comments Albumin/Globulin Ratio (test code = 1759-0) 0.6 0.8-2.0 [facility] Centererum or plasma alkaline phosphatase measurement (enzymatic activity/volume)2019-12-02 12:40:00* Test Item Value Reference Range Interpretation Comments Alkaline Phosphatase (test code = 6768-6) 117 40-150 [facility] Centererum or plasma creatine kinase measurement (enzymatic activity/volume)2019-12-02 12:40:00* Test Item Value Reference Range Interpretation Comments Creatine Kinase (test code = 2157-6) 47 30-200 [facility] Centererum or plasma creatine kinase MB measurement (mass/volume)2019-12-02 12:40:00* Test Item Value Reference Range Interpretation Comments Creatine Kinase MB (test code = 30620-5) 0.60 0-5.0 [facility] LancasterTroponin I measurement by highly sensitive enzyme fhervvjbydm8448-79-58 12:40:00* Test Item Value Reference Range Interpretation Comments Troponin I (test code = 37312-7) 0.002 0-0.300 [facility]- XR ABDOMEN AP 1 G2846-50-61 02:35:00 FAX: Cr Regan MD [phone] [place]: St: REG Name: VANESSA ANDREA [facility] : [birth year] Age/S: 44/M [address] [facility] Unit #: [id number] Loc: [place] [address] Phys: Cr Regan MD Acct: [id number] Dis Date: Status: REG ER PHONE #: [phone] Exam Date: 11/24/2019 0150 FAX #: [phone] Reason: g tube replacement EXAMS: CPT CODE: [id number] XR ABDOMEN AP 1 V 77546 Abdomen one view with contrast inj ection [...] Edmondson Trnscrd Date/Time/By: 11/24/2019 (0235) : By: [email or web address] Orig P rint D/T: S: 11/24/2019 (0238) PAGE 1 Signed Report BASIC METABOLIC [id number] 06:58:00* Test Item Value Reference Range Interpretation [...] CA) 9.1 mg/dL 8.5-10.1 N BASIC METABOLIC [id number] 06:53:00* Test Item Value Reference Range Interpretation [...] code = CA) mg/dL 8.5-10.1 BASIC METABOLIC [id number] 08:41:00* Test Item Value Reference Range Interpretation [...] mg/dL 8.5-10.1 N REFUSED LABS NOTIFIED NURSE [id number].YOLANDA.DB2 10/30/2000337117WCGJP METABOLIC PANEL 2019-10-31 08:23:00* Test Item Value [...] CA) mg/dL 8.5-10.1 REFUSED LABS NOTIFIED NURSE AXP0871EALIS.DB2 B-TYPE NATRIURETIC YRJWHRE0182-33-64 08:20:00* Test Item Value Reference Range Interpretation Comments B-TYPE NATRIURETIC PEPTIDE (test code = BNP) 33.00 pgram/mL 0-100 N PROTHROMBIN [id number] 08:15:00* Test Item Value Reference Range Interpretation [...] valves (2.5-3.5) PT REFUSED LABS NOTIFIED NURSE [id number] IS PATIENT ON ANTICO AGULANTS? NCOMMENTS TO FUNCTIONAL CONSULTANT: NEED FOR SURGERY 10/31/19ROMBOPLASTIN TIME [id number] 08:15:00* Test Item Value Reference Range Interpretation Comments THROMBOPLASTIN TIME PARTIAL (test code = PTT) 34.4 seconds 23.0-37. 0 N PT REFUSED LABS NOTIFIED NURSE [id number].DB2 IS PATIENT ON ANTICO AGULANTS? NCOMMENTS TO FUNCTIONAL CONSULTANT: NEED FOR SURGERY 10/31/19CBC W/AUTO DIFF 2019-10-31 [...] 0.0-0.1 N PT REFUSED LABS NOTIFIED NURSE [id number].YOLANDA.DB2 10/30/200054CBC W/AUTO DIFF 2019-10-30 07:36:00* Test Item [...] = MDIFF) NO, ONLY SCAN NEEDED DIFFERENTIAL [id number] 07:36:00* Test Item Value Reference Range Interpretation Comments STAIN ACCEPTABILITY (test code = STN ACCEPTABLE) STAIN ACCEPTABLE PLATELET ESTIMATE (test code = PLTEST) DECREASED PLATELET MORPHOLOGY (test code = PLTMORPH) SIZE VARIABLE COMPREHENSIVE METABOLIC [id number] 07:31:00* Test Item Value Reference Range Interpretation [...] due to change in reagent. COMPREHENSIVE METABOLIC [id number] 07:03:00* Test Item Value Reference Range Interpretation [...] code = ALKP) IUnit/L 45-117 CBC W/AUTO [id number] 06:47:00* Test Item Value Reference Range Interpretation [...] = MDIFF) NO, ONLY SCAN NEEDED DIFFERENTIAL [id number] 06:47:00* Test Item Value Reference Range Interpretation Comments STAIN ACCEPTABILITY (test code = STN ACCEPTABLE) CABOT RINGS (test code = CAB) MORPHOLOGY COMMENT (test code = MOC) PLATELET ESTIMATE (test code = PLTEST) PLATELET MORPHOLOGY (test code = PLTMORPH) CBC W/AUTO [id number] 06:47:00* Test Item Value Reference Range Interpretation [...] = MDIFF) NO, ONLY SCAN NEEDED DIFFERENTIAL [id number] 06:47:00* Test Item Value Reference Range Interpretation Comments STAIN ACCEPTABILITY (test code = STN ACCEPTABLE) MORPHOLOGY COMMENT (test code = MOC) PLATELET ESTIMATE (test code = PLTEST) PLATELET MORPHOLOGY (test code = PLTMORPH) CBC W/AUTO [id number] 06:46:00* Test Item Value Reference Range Interpretation [...] = MDIFF) NO, ONLY SCAN NEEDED DIFFERENTIAL [id number] 06:46:00* Test Item Value Reference Range Interpretation Comments STAIN ACCEPTABILITY (test code = STN ACCEPTABLE) CABOT RINGS (test code = CAB) MORPHOLOGY COMMENT (test code = MOC) PLATELET ESTIMATE (test code = PLTEST) PLATELET MORPHOLOGY (test code = PLTMORPH) CBC W/AUTO [id number] 06:46:00* Test Item Value Reference Range Interpretation [...] = MDIFF) NO, ONLY SCAN NEEDED DIFFERENTIAL [id number] 06:46:00* Test Item Value Reference Range Interpretation Comments STAIN ACCEPTABILITY (test code = STN ACCEPTABLE) CABOT RINGS (test code = CAB) MORPHOLOGY COMMENT (test code = MOC) PLATELET ESTIMATE (test code = PLTEST) PLATELET MORPHOLOGY (test code = PLTMORPH) BASIC METABOLIC [id number] 06:02:00* Test Item Value Reference Range Interpretation [...] CA) 9.2 mg/dL 8.5-10.1 N BASIC METABOLIC [id number] 05:56:00* Test Item Value Reference Range Interpretation [...] = CA) mg/dL 8.5-10.1 Coronavirus 2019 nCoV Efonyqa9971-58-69 10:36:00* Test Item Value Reference Range Interpretation Comments Coronavirus 2019 nCoV Bedside (test code = COVNONPUIBED) Negative PROTHROMBIN [id number] 10:29:00* Test Item Value Reference Range Interpretation [...] (2.5-3.5) IS PATIENT ON ANTICOAGULANTS? NTHROMBOPLASTIN TIME [id number] 10:29:00* Test Item Value Reference Range Interpretation Comments THROMBOPLASTIN TIME PARTIAL (test code = PTT) 33.6 seconds 23.0-37. 0 N IS PATIENT ON ANTICOAGULANTS? NCOMPREHENSIVE METABOLIC [id number] 10:17:00 * Test Item Value Reference Range [...] due to change in reagent. CBC W/AUTO [id number] 09:43:00* Test Item Value Reference Range Interpretation [...] DIFF REQUIRED (test code = MDIFF) NO [id number] 20:41:00* Test Item Value Reference Range Interpretation Comments GLUBED (test code = GLUBED) 106 mg/dL 74-106 N Performed by certified stripper machine operator at [facility] ABDOMEN-1VIEW (KUB)2019-10-13 10:47:00 [place] [address] [place] [address] Patient Name: VANESSA KHOURY MR #: [id number] : 1975 Age/Sex: 44/M Req #: [id number] Adm Physician: Ordered by: GISELA LAYNE DO Report #: [id number] Location: ER Room/Bed: Procedure: [id number] DX/ABDOMEN-1V IEW (KUB) Exam Date: 10/13/19 Exam Time: 0920 REPORT STATUS: Signed EXAM: ABDOMEN-1 VIEW (KUB) DATE: 10/13/2019 9:46 AM INDICATION: Gastrostomy replacemen t COMPARISON: None FINDINGS: Single AP view of the abdomen was obt ained after the administration of Gastrografin via the indwelling gastrostomy catheter. A precipitation equipment tender image was not obtained. There is contrast [...] ically Signed By: JUNIOR HOUSER MD on 10/13/191048 Transcribed By: SARAH on 0 10/13/191048 COPY TO: GISELA LAYNE DO - CONT INJ TEOFILO/ RISSA/ MEGAN/ [id number] 09:47:00 FAX: Marcelina Younger DO [place]: B St: REG Name: VANESSA ANDREA [facility] : [birth year] Age/S: 44/M [address] Unit #: [id number] Loc: [place], [place] [address] Phys: Marcelina Younger DO Acct: [id number] Dis Date: Status: REG ER PHONE #: [phone] Exam Date: 10/09/2019914 FAX #: [phone] Reason: peg tube replacement EXAMS: CPT CODE: [id number] CONT INJ GS/ RISSA/ MEGAN/ [place]ilda G 20540 HISTORY: PEG tube placement. COMPARISON: CT scan from September 10, 2019. Location: TH. Shelver view of the abdomen demonstrating gastrostomy tube [...] yamile MENDEZTH4 Orig Print D/T: S: 10/09/2019 (4418) P AGE 1 Signed Report BASIC METABOLIC [id number] 05:25:00* Test Item Value Reference Range Interpretation [...] CA) 9.0 mg/dL 8.5-10.1 N BASIC METABOLIC [id number] 05:17:00* Test Item Value Reference Range Interpretation [...] code = CA) mg/dL 8.5-10.1 BASIC METABOLIC [id number] 14:23:00* Test Item Value Reference Range Interpretation [...] CA) 8.8 mg/dL 8.5-10.1 N CBC W/AUTO [id number] 14:20:00* Test Item Value Reference Range Interpretation [...] NRBC#) 0.00 K/mm3 0.0-0.1 N BASIC METABOLIC [id number] 14:20:00* Test Item Value Reference Range Interpretation [...] code = CA) 8.8 mg/dL 8.5-10.1 N [id number] 18:04:00* Test Item Value Reference Range Interpretation Comments GLUBED (test code = GLUBED) 95 mg/dL 74-106 N Performed by certified stripper machine operator at [facility] [id number] 07:58:00* Test Item Value Reference Range Interpretation Comments GLUBED (test code = GLUBED) 99 mg/dL 74-106 N Performed by certified stripper machine operator at [facility] [id number] 21:01:00* Test Item Value Reference Range Interpretation Comments GLUBED (test code = GLUBED) 105 mg/dL 74-106 N [facility] by certified stripper machine operator [facility] CenterNotified [facility]~ Coronavirus 2019 nCoV Rgllpmh5996-68-32 11:47:00* Test Item Value Reference Range Interpretation Comments Coronavirus 2019 nCoV Bedside (test code = COVNONPUIBED) Negative Emergent procedure? YESBASIC METABOLIC [id number] 07:11:00* Test Item Value Reference Range Interpretation [...] CA) 9.5 mg/dL 8.5-10.1 N BASIC METABOLIC [id number] 06:51:00* Test Item Value Reference Range Interpretation [...] code = CA) mg/dL 8.5-10.1 CBC W/AUTO [id number] 06:33:00* Test Item Value Reference Range Interpretation [...] = MDIFF) NO - CT ABD PELVIS [id number] 17:10:00 Name: VANESSA KHOURY [facility] : 1975 Age/S: 44 / M [address] Unit #: [id number] Loc: [place] [address] Phys: Virgil Montero MD Acct: [id number] Dis Date: Status: REG ER PHONE #: [phone] Exam Date: 09/10/2019 3279 FAX #: [phone] Reason: Vomiting after PEG tube replacement EXAMS: CPT CODE: [id number] CT ABD PELVIS W/CONT 73087 HISTORY: Vomiting after PEG tube replacement. COMPARISON: [...] Signed Report (CON TINUED) Name: VANESSA KHOURY [facility] : 1975 Age/S: 44 / M [address] [facility] Unit #: [id number] Loc: [place] [address] Phys: Virgil Velasquez MD Acct: [id number] Dis Date: Status: REG ER PH ONE #: [phone] Exam Date: 09/10/2019 1659 FAX #: Reason: Vomiting after PEG tube replacement EXA MS: CPT CODE: [id number] CT AB D PELVIS W/CONT 30382 <Continued> Prostate is not enlarged. No pelvic [...] . CTDI: DLP: Trns cb Date/Time: 09/10/2019 (216) t.ESTHERR.TH4 Orig Print D/T: S: 09/10/2019 (5635) PAGE 2 Signed Report BASIC METABOLIC [id number] 15:56:00* Test Item Value Reference Range Interpretation [...] CA) 10.6 mg/dL 8.5-10.1 H HEPATIC FUNCTION [id number] 15:56:00* Test Item Value Reference Range Interpretation [...] reference range due to change in reagent. [id number] 15:56:00* Test Item Value Reference Range Interpretation Comments LIPASE (test code = LIP) 63 U/L 73.0-393.0 L BASIC METABOLIC [id number] 15:48:00* Test Item Value Reference Range Interpretation [...] code = CA) mg/dL 8.5-10.1 HEPATIC FUNCTION [id number] 15:48:00* Test Item Value Reference Range Interpretation [...] TOTAL (test code = ALKP) IUnit/L 45-117 [id number] 15:48:00* Test Item Value Reference Range Interpretation Comments LIPASE (test code = LIP) U/L 73.0-393.0 CBC W/O VMPF7484-25-94 15:37:00* Test Item Value Reference Range Interpretation [...] MPV) 12.7 fL 6.7-11.0 H CBC W/O OYMV0902-41-04 15:36:00* Test Item Value Reference Range Interpretation [...] 6.7-11.0 - CONT INJ GS/ DU/ JJ/ [id number] 09:56:00 FAX: Virgil Montero MD [place]: B St: REG Name: VANESSA ANDREA [facility] : [birth year] 73 Age/S: 44/M [address] [facility] Unit #: [id number] Loc: [place] [address] Phys: Virgil Montero MD Acct: [id number] Dis Date: Status: REG ER PHONE #: [phone] Exam Date: 09/10/2019951 FAX #: [phone] Reason: peg tube replacement EXAMS: CPT CODE: [id number] CONT INJ GS/ DU/ JJ/ G G 59913 EXAM: KUB and evaluation of gastro stomy [...] M.D. CC: Virgil Montero MD Technologist: ZENA PIERCE(R) Trnscrd Date/Time/By: 09/10/2019 (0956) : By: WillGRW Orig Print D/T: S: 09/10/2019 (6046) PAGE 1 Signed Report Blood Culture 2019-08-18 01:37:00* Test Item Value Reference Range Interpretation Comments Blood Culture (test code = 59212328) NO GROWTH AFTER 5 DAYS, FINAL REPORT [facility]lamydia pneumoniae DNA (PCR)2019-08-16 10:36:00* Test Item Value Reference Range Interpretation Comments Chlamydia pneumoniae DNA (PCR) (test code = Chlamydia pneumoniae DNA (PCR)) NOT DETECTED NOT DETECT [facility] LancasterInfluenza Type A (RT-PCR)2019-08-16 10:36:00* Test Item Value Reference Range Interpretation Comments Influenza Type A (RT-PCR) (test code = 979977854) NOT DETECTED NOT DETECT [facility] LancasterMycoplasma pneumoniae (PCR)2019-08-16 10:36:00* Test Item Value Reference Range Interpretation Comments Mycoplasma pneumoniae (PCR) (test code = Mycoplasma pn eumoniae (PCR)) NOT DETECTED NOT DETECT [facility] LancasterInfluenza Type B (RT-PCR)2019-08-16 10:36:00* Test Item Value Reference Range Interpretation Comments Influenza Type B (RT-PCR) (test code = 831840738) NOT DETECTED NOT DETECT [facility] LancasterRespiratory Syncytial Virus (PCR) 2019-08-16 10:36:00* Test Item Value Reference Range Interpretation Comments Respiratory Syncytial Virus (PCR) (test code = 331396231) NO T DETECTED NOT DETECT [facility] LancasterBordetella pertussis DNA (PCR)2019-08-16 10:36:00* Test Item Value Reference Range Interpretation Comments Bordetella pertussis DNA (PCR) (test code = 337944003) NOT DETEC [place] NOT DETECT [facility] LancasterParainfluenza Type 1 (PCR)2019-08-16 10:36:00* Test Item Value Reference Range Interpretation Comments Parainfluenza Type 1 (PCR) (test code = 612966411) NOT DETECTED NOT DETECT [facility] LancasterParainfluenza Type 2 (PCR)2019-08-16 10:36:00* Test Item Value Reference Range Interpretation Comments Parainfluenza Type 2 (PCR) (test code = 910884478) NOT DETECTED NOT DETECT [facility] LancasterParainfluenza Type 3 (PCR)2019-08-16 10:36:00* Test Item Value Reference Range Interpretation Comments Parainfluenza Type 3 (PCR) (test code = 428253817) NOT DETECTED NOT DETECT [facility] LancasterParainfluenza Type 4 (PCR)2019-08-16 10:36:00* Test Item Value Reference Range Interpretation Comments Parainfluenza Type 4 (PCR) (test code = Parainfluenza Type 4 (PCR)) NOT DETECTED NOT DETECT [facility] LancasterRhinovirus (PCR)2019-08-16 10:36:00* Test Item Value Reference Range Interpretation Comments Rhinovirus (PCR) (test code = 678364326) NOT DETECTED NOT DETECT [facility] LancasterHuman Metapneumovirus (PCR)2019-08-16 10:36:00* Test Item Value Reference Range Interpretation Comments Human Metapneumovirus (PCR) (test code = 036698351) NOT DETECTED NO T DETECT [facility] LancasterAdenovirus (PCR)2019-08-16 10:36:00* Test Item Value Reference Range Interpretation Comments Adenovirus (PCR) (test code = 470416660) NOT DETECTED NOT DETECT [facility] LancasterCoronavirus Type HKU1 (PCR)2019-08-16 10:36:00* Test Item Value Reference Range Interpretation Comments Coronavirus Type HKU1 (PCR) (test code = Coronavirus T ype HKU1 (PCR)) NOT DETECTED NOT DETECT [facility] LancasterCoronavirus Type NL63 (PCR)2019-08-16 10:36:00* Test Item Value Reference Range Interpretation Comments Coronavirus Type NL63 (PCR) (test code = Coronavirus T ype NL63 (PCR)) NOT DETECTED NOT DETECT [facility] LancasterCoronavirus Type OC43 (PCR)2019-08-16 10:36:00* Test Item Value Reference Range Interpretation Comments Coronavirus Type OC43 (PCR) (test code = Coronavirus T ype OC43 (PCR)) NOT DETECTED NOT DETECT [facility] LancasterCoronavirus Type 229E (PCR)2019-08-16 10:36:00* Test Item Value [...] management decisions. This sample was tested at [facility] using the [employer] Respiratory Panel. It is FDA cleared and has been verified and approved by t [facility] for clinical use on nasopharyngeal swa b specimens.ALL RESPIRATORY VIRAL PANEL Testing performed at [address] [address]VTLIMXO HAVE BEEN CALLED TO THE [facility] Sojfayf8943-94-36 20:32:00* Test Item Value Reference Range Interpretation Comments Bedside Glucose (test code = 55974-7) 112 70-120 Meter ID: [id number] [facility] blood glucose measurement by glucometer (mass/volume)2019-08-15 12:26:00* Test Item Value Reference Range Interpretation Comments Bedside Glucose (test code = 98375-4) 112 mg/dL 70-120 Meter ID: [id number] [facility] blood glucose measurement by glucometer (mass/volume)2019-08-15 12:26:00* Test Item Value Reference Range Interpretation Comments Bedside Glucose (test code = 38778-3) 112 mg/dL 70-120 Meter ID: [id number] [facility] blood glucose measurement by glucometer (mass/volume)2019-08-15 12:26:00* Test Item Value Reference Range Interpretation Comments Bedside Glucose (test code = 77212-3) 112 mg/dL 70-120 Meter ID: [id number] [facility] blood glucose measurement by glucometer (mass/volume)2019-08-15 12:26:00* Test Item Value Reference Range Interpretation Comments Bedside Glucose (test code = 93500-1) 112 mg/dL 70-120 Meter ID: [id number] [facility] blood glucose measurement by glucometer (mass/volume)2019-08-15 12:26:00* Test Item Value Reference Range Interpretation Comments Bedside Glucose (test code = 40887-7) 112 mg/dL 70-120 [address]: [id number] Centerillary blood glucose measurement by glucometer (mass/volume)2019-08-15 11:26:00* Test Item Value Reference Range Interpretation Comments Bedside Glucose (test code = 07014-0) 112 70-120 Meter ID: [id number] [facility] measurement by glucometer (mass/volume)2019-08-15 11:26:00* Test Item Value Reference Range Interpretation Comments Bedside Glucose (test code = 31504-6) 112 70-120 Meter ID: [id number] [facility] blood glucose measurement by glucometer (mass/volume)2019-08-15 11:26:00* Test Item Value Reference Range Interpretation Comments Bedside Glucose (test code = 37052-2) 112 70-120 Meter ID: [id number] USMD [facility] glucose measurement by glucometer (mass/volume)2019-08-15 11:26:00* Test Item Value Reference Range Interpretation Comments Bedside Glucose (test code = 11567-6) 112 70-120 Meter ID: [id number] [facility] glucose measurement by glucometer (mass/volume)2019-08-15 11:26:00* Test Item Value Reference Range Interpretation Comments Bedside Glucose (test code = 65471-5) 112 70-120 Meter ID: [id number] [facility]odium Level 2019-08-15 05:37:00* Test Item Value Reference Range Interpretation Comments Sodium Level (test code = 2951-2) 145 136-145 [facility] LancasterPotassium Mnhqo1953-00-67 05:37:00* Test Item Value Reference Range Interpretation Comments Potassium Level (test code = 2823-3) 3.3 3.5-5.1 L [facility] LancasterChloride Ejunk2554-81-75 05:37:00* Test Item Value Reference Range Interpretation Comments Chloride Level (test code = 2075-0) 110 98-107 H [facility] LancasterCarbon Dioxide Yzqcq4773-97-13 05:37:00* Test Item Value Reference Range Interpretation Comments Carbon Dioxide Level (test code = 2028-9) 26 22-29 [facility] LancasterAnion Kyp6243-71-92 05:37:00* Test Item Value Reference Range Interpretation Comments Anion Gap (test code = 04135-1) 12.3 8-16 [facility] LancasterBlood Urea Bmjlrmzq7819-67-25 05:37:00* Test Item Value Reference Range Interpretation Comments Blood Urea Nitrogen (test code = 3094-0) 11 7-26 [facility] LancasterCreatinine2020-04-06 05:37:00* Test Item Value Reference Range Interpretation Comments Creatinine (test code = 2160-0) 0.54 0.72-1.25 L [facility] LancasterBUN/Creatinine Coovu1013-34-53 05:37:00* Test Item Value Reference Range Interpretation Comments BUN/Creatinine Ratio (test code = 3097-3) 20 6-25 [facility] LancasterEstimat Glomerular Filtration Rate 2019-08-15 05:37:00* Test Item Value Reference Range Interpretation Comments Estimat Glomerular Filtration Rate (test code = 834382683) > 60 >60 Ranges were taken from the National Kidney Disease Education Program and the [facility] Kidney Foundation literature.Reference ranges:60 or greater: Xhusdh96-89 ( for 3 consecutive months): Chronic kidney disease 15 or less: Kidney failureCrescent Medical Center LancasterGlucose Nitcg4825-93-69 05:37:00* Test Item Value Reference Range Interpretation Comments Glucose Level (test code = HKS1166) 88 74-118 [facility] LancasterCalcium Vlsws8306-30-36 05:37:00* Test Item Value Reference Range Interpretation Comments Calcium Level (test code = 43625-6) 8.5 8.4-10.2 [facility] LancasterCoronavirus (PCR)2019-08-15 05:13:00* Test Item Value Reference Range [...] section 360bbb-3(b)(1), unless the authorization is termina mitchell or revoked sooner. [facility] are certified under the C linical Laboratory Improvement Amendments of 1988 (CLIA), 42 U.S.C. section 263a , to perform high complexity tests.Specimen sent to [facility] and testing performed by [facility] [address] [place] [address] [phone] Director: Jose Alberto M.D.IA # [id number] Medical Centererum or plasma sodium measurement (moles/volume)2019-08-15 04:50:00* Test Item Value Reference Range Interpretation Comments Sodium Level (test code = 2951-2) 145 136-145 [facility] Centererum or plasma potassium measurement (moles/volume)2019-08-15 04:50:00* Test Item Value Reference Range Interpretation Comments Potassium Level (test code = 2823-3) 3.3 3.5-5.1 [facility] Centererum or plasma chloride measurement (moles/volume)2019-08-15 04:50:00* Test Item Value Reference Range Interpretation Comments Chloride Level (test code = 2075-0) 110 98-107 [facility] Centererum or plasma carbon dioxide, total measurement (moles/volume)2019-08-15 04:50:00* Test Item Value Reference Range Interpretation Comments Carbon Dioxide Level (test code = 2028-9) 26 22-29 [facility] Centererum or plasma anion zjl2621-07-46 04:50:00* Test Item Value Reference Range Interpretation Comments Anion Gap (test code = 62187-1) 12.3 8-16 [facility] Centererum or plasma urea nitrogen measurement (mass/volume)2019-08-15 04:50:00* Test Item Value Reference Range Interpretation Comments Blood Urea Nitrogen (test code = 3094-0) 11 7-26 [facility] Centererum or plasma creatinine measurement (mass/volume)2019-08-15 04:50:00* Test Item Value Reference Range Interpretation Comments Creatinine (test code = 2160-0) 0.54 0.72-1.25 [facility] Centererum or plasma urea nitrogen/creatinine mass smlqj1395-86-18 04:50:00* Test Item Value Reference Range Interpretation Comments BUN/Creatinine Ratio (test code = 3097-3) 20 6-25 [facility] LancasterEstimated glomerular filtration rate (GFR) dactlpaaamccx1448-86-57 04:50:00* Test Item Value Reference Range Interpretation Comments Estimat Glomerular Filtration Rate (test code = 077398873) > 60 >60 Ranges were taken from the National Kidney Disease Education Program and the [facility]al Kidney Foundation literature.Reference ranges:60 or greater: Rdiwzf19-41 ( for 3 consecutive months): Chronic kidney disease 15 or less: Kidney failureCHI Dallas Regional Medical CenterGlucose vppnuryabws4547-61-08 04:50:00* Test Item Value Reference Range Interpretation Comments Glucose Level (test code = JBS0293) 88 74-118 [facility] Centererum or plasma calcium measurement (mass/volume)2019-08-15 04:50:00* Test Item Value Reference Range Interpretation Comments Calcium Level (test code = 77947-6) 8.5 8.4-10.2 [facility] LancasterCHEST SINGLE (PORTABLE)2019-08-14 10:31:00 [facility] [address] [place] [address] Patient Name: VANESSA KHOURY MR #: [id number] : 1975 Age/Sex: 44/M Req #: [id number] Adm Physician: ABDI BETHEA MD Ordered by: ANY CHACON MD Report #: [id number] Location: ICU Room/Bed: ICU [facility] Procedure: [id number] DX/CH EST SINGLE (PORTABLE) Exam Date: 08/14/19 Exam Time: 929 REPORT STATUS: Signed EXAM INATION: CHEST SINGLE (PORTABLE) INDICATION: FEVER 30 COMPARISON: Chest x-ray and CT dated 08/13/2019 [...] the appropriate clinical context. Signed by: Dr. Anita Arriola MD on 08/13 10:34 AM Dictated By: ANITA ARRIOLA MD 1034 Transcribed By: SARAH on 08/14/19 1034 COPY TO: ANY CHACON MD Total Vvjpitzyn0621-14-21 05:44:00* Test Item Value Reference Range Interpretation Comments Total Bilirubin (test code = 1975-2) 0.5 0.2-1.2 [facility] LancasterAspartate Amino Transf (AST/SGOT) 2019-08-14 05:44:00* Test Item Value Reference Range Interpretation Comments Aspartate Amino Transf (AST/SGOT) (test code = Aspartate Amino Transf (AST/SGOT)) 18 5-34 [facility] LancasterAlanine Aminotransferase (ALT/SGPT) 2019-08-14 05:44:00* Test Item Value Reference Range Interpretation Comments Alanine Aminotransferase (ALT/SGPT) (test code = 1742-6) 17 0-55 [facility] LancasterTotal Srwmgqs1660-10-16 05:44:00* Test Item Value Reference Range Interpretation Comments Total Protein (test code = 2885-2) 5.9 6.5-8.1 L [facility] LancasterAlbumin2020-04-05 05:44:00* Test Item Value Reference Range Interpretation Comments Albumin (test code = 1751-7) 2.5 3.5-5.0 L [facility] LancasterGlobulin2020-04-05 05:44:00* Test Item Value Reference Range Interpretation Comments Globulin (test code = 75061-1) 3.4 2.3-3.5 [facility] LancasterAlbumin/Globulin Gsegk8825-27-29 05:44:00 * Test Item Value Reference Range Interpretation Comments Albumin/Globulin Ratio (test code = 1759-0) 0.7 0.8-2.0 L [facility] LancasterAlkaline Tvnnxccojcj2780-27-04 05:44:00* Test Item Value Reference Range Interpretation Comments Alkaline Phosphatase (test code = 6768-6) 108 40-150 [facility] LancasterProthrombin Lyeg7987-99-97 05:40:00* Test Item Value Reference Range Interpretation Comments Prothrombin Time (test code = 5902-2) 15.9 11.9-14.5 H [facility] LancasterProthromb Time International Ratio 2019-08-14 05:40:00* Test Item Value Reference Range Interpretation Comments Prothromb Time International Ratio (test code = 6301-6) 1.19 Oral Anticoagulant Therapy INR Values:1. Low Intensity Therapy 1.5 - 2.02 . Moderate Intensity Therapy 2.0 - 3.03. High Intensity Therapy(1) 2.5 - 3. 54. High Intensity Therapy(2) 3.0 - 4.05. Panic Value INR > 5.0 [facility] LancasterWhite Blood Zbtdb6821-18-73 05:25:00* Test Item Value Reference Range Interpretation Comments White Blood Count (test code = 6690-2) 7.01 4.8-10.8 [facility] LancasterRed Blood Otwwb8304-32-74 05:25:00* Test Item Value Reference Range Interpretation Comments Red Blood Count (test code = 789-8) 3.26 4.3-5.7 L [facility] LancasterHemoglobin2020-04-05 05:25:00* Test Item Value Reference Range Interpretation Comments Hemoglobin (test code = 12664-5) 9.5 14.0-18.0 L [facility] LancasterHematocrit2020-04-05 05:25:00* Test Item Value Reference Range Interpretation Comments Hematocrit (test code = 4544-3) 31.1 38.2-49.6 L [facility] LancasterMean Corpuscular Yhbwjp7342-93-48 05:25:00* Test Item Value Reference Range Interpretation Comments Mean Corpuscular Volume (test code = 787-2) 95.4 81-99 [facility] LancasterMean Corpuscular Twemmlmhhy5740-24-30 05:25:00* Test Item Value Reference Range Interpretation Comments Mean Corpuscular Hemoglobin (test code = 785-6) 29.1 28-32 [facility] LancasterMean Corpuscular Hemoglobin Concent 2019-08-14 05:25:00* Test Item Value Reference Range Interpretation Comments Mean Corpuscular Hemoglobin Concent (test code = 786-4) 30.5 31-35 L [facility] LancasterRed Cell Distribution Ugnfh8238-93-58 05:25:00* Test Item Value Reference Range Interpretation Comments Red Cell Distribution Width (test code = 48416-2) 13.2 11.7 -14.4 [facility] LancasterPlatelet Sqgrr7308-41-34 05:25:00* Test Item Value Reference Range Interpretation Comments Platelet Count (test code = 777-3) 92 140-360 L [facility] LancasterNeutrophils (%) (Auto)2019-08-14 05:25:00 * Test Item Value Reference Range Interpretation Comments Neutrophils (%) (Auto) (test code = 39962-7) 73.3 38.7-80.0 [facility] LancasterLymphocytes (%) (Auto)2019-08-14 05:25:00 * Test Item Value Reference Range Interpretation Comments Lymphocytes (%) (Auto) (test code = 736-9) 18.7 18.0-39.1 [facility] LancasterMonocytes (%) (Auto)2019-08-14 05:25:00* Test Item Value Reference Range Interpretation Comments Monocytes (%) (Auto) (test code = 5905-5) 6.7 4.4-11.3 [facility] LancasterEosinophils (%) (Auto)2019-08-14 05:25:00 * Test Item Value Reference Range Interpretation Comments Eosinophils (%) (Auto) (test code = 713-8) 0.7 0.0-6.0 [facility] LancasterBasophils (%) (Auto)2019-08-14 05:25:00* Test Item Value Reference Range Interpretation Comments Basophils (%) (Auto) (test code = 706-2) 0.3 0.0-1.0 [facility] LancasterIM GRANULOCYTES %2019-08-14 05:25:00* Test Item Value Reference Range Interpretation Comments IM GRANULOCYTES % (test code = IM GRANULOCYTES %) 0.3 0.0- 1.0 [facility] LancasterNeutrophils # (Auto)2019-08-14 05:25:00* Test Item Value Reference Range Interpretation Comments Neutrophils # (Auto) (test code = 751-8) 5.1 2.1-6.9 [facility] LancasterLymphocytes # (Auto)2019-08-14 05:25:00* Test Item Value Reference Range Interpretation Comments Lymphocytes # (Auto) (test code = 49016-9) 1.3 1.0-3.2 [facility] LancasterMonocytes # (Auto)2019-08-14 05:25:00* Test Item Value Reference Range Interpretation Comments Monocytes # (Auto) (test code = 742-7) 0.5 0.2-0.8 [facility] LancasterEosinophils # (Auto)2019-08-14 05:25:00* Test Item Value Reference Range Interpretation Comments Eosinophils # (Auto) (test code = 711-2) 0.1 0.0-0.4 [facility] LancasterBasophils # (Auto)2019-08-14 05:25:00* Test Item Value Reference Range Interpretation Comments Basophils # (Auto) (test code = 704-7) 0.0 0.0-0.1 [facility] LancasterAbsolute Immature Granulocyte (auto 2019-08-14 05:25:00* Test Item Value Reference Range Interpretation Comments Absolute Immature Granulocyte (auto (mabel t code = Absolute Immature Granulocyte (auto) 0.02 0-0.1 [facility] LancasterBlessentia health leukocytes automated count (number/volume)2019-08-14 04:39:00* Test Item Value Reference Range Interpretation Comments White Blood Count (test code = 6690-2) 7.01 4.8-10.8 [facility] LancasterBlood erythrocytes automated count (number/volume)2019-08-14 04:39:00* Test Item Value Reference Range Interpretation Comments Red Blood Count (test code = 789-8) 3.26 4.3-5.7 [facility] LancasterBlood hemoglobin measurement (moles/volume)2019-08-14 04:39:00* Test Item Value Reference Range Interpretation Comments Hemoglobin (test code = 40655-1) 9.5 14.0-18.0 [facility] LancasterAutomated blood hematocrit (volume fraction)2019-08-14 04:39:00* Test Item Value Reference Range Interpretation Comments Hematocrit (test code = 4544-3) 31.1 38.2-49.6 [facility] LancasterAutomated erythrocyte mean corpuscular fjhmrh1800-66-56 04:39:00* Test Item Value Reference Range Interpretation Comments Mean Corpuscular Volume (test code = 787-2) 95.4 81-99 [facility] LancasterAutomated erythrocyte mean corpuscular hemoglobin (mass per erythrocyte)2019-08-14 04:39:00* Test Item Value Reference Range Interpretation Comments Mean Corpuscular Hemoglobin (test code = 785-6) 29.1 28-32 [facility] LancasterAutomated erythrocyte mean corpuscular hemoglobin concentration measurement (mass/volume)2019-08-14 04:39:00* Test Item Value Reference Range Interpretation Comments Mean Corpuscular Hemoglobin Concent (test code = 786-4) 30.5 31-35 [facility] LancasterRDW ZqdBp-Zsj7601-06-05 04:39:00* Test Item Value Reference Range Interpretation Comments Red Cell Distribution Width (test code = 25261-8) 13.2 11.7 -14.4 [facility] LancasterAutomated blood platelet count (count/volume)2019-08-14 04:39:00* Test Item Value Reference Range Interpretation Comments Platelet Count (test code = 777-3) 92 140-360 [facility] LancasterAutomated blood segmented neutrophil count as percentage of total efpqwyzizy9916-54-90 04:39:00* Test Item Value Reference Range Interpretation Comments Neutrophils (%) (Auto) (test code = 21906-2) 73.3 38.7-80.0 [facility] LancasterAutomated blood lymphocyte count as percentage ot total qpthywspqs2463-14-68 04:39:00* Test Item Value Reference Range Interpretation Comments Lymphocytes (%) (Auto) (test code = 736-9) 18.7 18.0-39.1 [facility] LancasterAutomated blood monocyte count as percentage of total musjzdizay2253-79-73 04:39:00* Test Item Value Reference Range Interpretation Comments Monocytes (%) (Auto) (test code = 5905-5) 6.7 4.4-11.3 [facility] LancasterAutomated blood eosinophil count as percentage of total ushixnftqe8489-25-60 04:39:00* Test Item Value Reference Range Interpretation Comments Eosinophils (%) (Auto) (test code = 713-8) 0.7 0.0-6.0 [facility] LancasterAutomated blood basophil count as percentage of total ogjrxnhxgd9532-71-96 04:39:00* Test Item Value Reference Range Interpretation Comments Basophils (%) (Auto) (test code = 706-2) 0.3 0.0-1.0 [facility] LancasterFluoroscopic procedure less than one hour alxpepxx9251-70-05 04:39:00* Test Item Value Reference Range Interpretation Comments IM GRANULOCYTES % (test code = IM GRANULOCYTES %) 0.3 0.0- 1.0 [facility] LancasterAutomated blood neutrophil count 2019-08-14 04:39:00* Test Item Value Reference Range Interpretation Comments Neutrophils # (Auto) (test code = 751-8) 5.1 2.1-6.9 [facility] LancasterBlood lymphocytes count (number/volume) 2019-08-14 04:39:00* Test Item Value Reference Range Interpretation Comments Lymphocytes # (Auto) (test code = 86279-9) 1.3 1.0-3.2 [facility] LancasterBlood monocytes automated count (number/volume)2019-08-14 04:39:00* Test Item Value Reference Range Interpretation Comments Monocytes # (Auto) (test code = 742-7) 0.5 0.2-0.8 [facility] [place]Autom[place] blood eosinophil count 2019-08-14 04:39:00* Test Item Value Reference Range Interpretation Comments Eosinophils # (Auto) (test code = 711-2) 0.1 0.0-0.4 [facility] LancasterAutomated blood basophil count (count/volume)2019-08-14 04:39:00* Test Item Value Reference Range Interpretation Comments Basophils # (Auto) (test code = 704-7) 0.0 0.0-0.1 [facility] LancasterFluoroscopic procedure less than one hour mbbxqerz8213-15-59 04:39:00* Test Item Value Reference Range Interpretation Comments Absolute Immature Granulocyte (auto (mabel t code = Absolute Immature Granulocyte (auto) 0.02 0-0.1 [facility] LancasterProthrombin time (PT) in platelet poor plasma by coagulation frbmf6052-07-20 04:39:00* Test Item Value Reference Range Interpretation Comments Prothrombin Time (test code = 5902-2) 15.9 11.9-14.5 [facility] LancasterINR in Platelet poor plasma by Coagulation vgkma4115-94-37 04:39:00* Test Item Value Reference Range Interpretation Comments Prothromb Time International Ratio (test code = 6301-6) 1.19 Oral Anticoagulant Therapy INR Values:1. Low Intensity Therapy 1.5 - 2.02 . Moderate Intensity Therapy 2.0 - 3.03. High Intensity Therapy(1) 2.5 - 3. 54. High Intensity Therapy(2) 3.0 - 4.05. Panic Value INR > 5.0 [facility] total bilirubin measurement (mass/volume)2019-08-14 04:39:00* Test Item Value Reference Range Interpretation Comments Total Bilirubin (test code = 1975-2) 0.5 0.2-1.2 [facility] LancasterFluoroscopic procedure less than one hour pbzfpyak4301-24-98 04:39:00* Test Item Value Reference Range Interpretation Comments Aspartate Amino Transf (AST/SGOT) (test code = Aspartate Amino Transf (AST/SGOT)) 18 5-34 [facility] alanine aminotransferase measurement (enzymatic activity/volume)2019-08-14 04:39:00* Test Item Value Reference Range Interpretation Comments Alanine Aminotransferase (ALT/SGPT) (test code = 1742-6) 17 0-55 [facility] protein measurement (mass/volume)2019-08-14 04:39:00* Test Item Value Reference Range Interpretation Comments Total Protein (test code = 2885-2) 5.9 6.5-8.1 [facility] albumin measurement (mass/volume)2019-08-14 04:39:00* Test Item Value Reference Range Interpretation Comments Albumin (test code = 1751-7) 2.5 3.5-5.0 [facility] LancasterPlasma globulin measurement (mass/volume) 2019-08-14 04:39:00* Test Item Value Reference Range Interpretation Comments Globulin (test code = 41223-6) 3.4 2.3-3.5 [facility] albumin/globulin mass nochn2537-83-62 04:39:00* Test Item Value Reference Range Interpretation Comments Albumin/Globulin Ratio (test code = 1759-0) 0.7 0.8-2.0 [facility] alkaline phosphatase measurement (enzymatic activity/volume)2019-08-14 04:39:00* Test Item Value Reference Range Interpretation Comments Alkaline Phosphatase (test code = 6768-6) 108 40-150 [facility] LancasterCreatine Kinase YF9691-81-32 07:46:00* Test Item Value Reference Range Interpretation Comments Creatine Kinase MB (test code = 44894-4) 0.60 0-5.0 [facility] LancasterTroponin A9860-73-22 07:46:00* Test Item Value Reference Range Interpretation Comments Troponin I (test code = 26254-5) 0.018 0-0.300 [facility] LancasterCreatine Pstnog3821-89-71 07:24:00* Test Item Value Reference Range Interpretation Comments Creatine Kinase (test code = 2157-6) 64 30-200 [facility] plasma creatine kinase measurement (enzymatic activity/volume)2019-08-13 06:53:00* Test Item Value Reference Range Interpretation Comments Creatine Kinase (test code = 2157-6) 64 30-200 [facility]rum [facility] plasma creatine kinase MB measurement (mass/volume)2019-08-13 06:53:00* Test Item Value Reference Range Interpretation Comments Creatine Kinase MB (test code = 52724-9) 0.60 0-5.0 [facility] LancasterTroponin I measurement by highly sensitive enzyme eniftnwywzy1342-51-15 06:53:00* Test Item Value Reference Range Interpretation Comments Troponin I (test code = 33409-4) 0.018 0-0.300 [facility] LancasterCT CHEST [id number] 04:56:00 [facility] [address] [place] [address] Patient Name: VANESSA KHOURY MR #: [id number] : 1975 Age/Sex: 44/M Req #: [id number] Adm Physician: Ordered by: KAY PHILIPPE MD Report #: [id number] Location: ER Room/Bed: Procedure: 040-[address]/CT CHEST WO Exam Date: Exam Time: REPORT STATUS: Signed CT chest without enha ncement CPT code: 27956 INDICATION: Fever, atelectasis TECHNIQUE : Thin collimation [...] right intrar enal calculi. Signed by: Dr. Nahum Bates MD on 08/13/2019 5:04 AM Dictated By: NAHUM BATES MD 3 Transcribed By: SARAH on 08/13/19503 COPY TO: KAY PHILIPPE MD Lactic Acid Eapck1255-89-27 03:59:00* Test Item Value Reference Range Interpretation Comments Lactic Acid Level (test code = Lactic Acid Level) 1.0 0.5- 2.0 [facility] LancasterUrine Jkzvx3181-41-96 03:41:00* Test Item Value Reference Range Interpretation Comments Urine Color (test code = 5778-6) ASHISH YELLOW H [facility] LancasterUrine Vuglaky1529-92-28 03:41:00* Test Item Value Reference Range Interpretation Comments Urine Clarity (test code = 37603-3) HAZY CLEAR [facility] LancasterUrine Specific Ovwfsde8473-89-06 03:41:00 * Test Item Value Reference Range Interpretation Comments Urine Specific [place]ley (test code = 5811-5) 1.030 1.010-1.02 5 H [facility] LancasterUrine mN4924-08-61 03:41:00* Test Item Value Reference Range Interpretation Comments Urine pH (test code = 09847-1) 6 5-7 [facility] LancasterUrine Leukocyte Pnnnwlqr2532-98-86 03:41:00* Test Item Value Reference Range Interpretation Comments Urine Leukocyte Esterase (test code = 5799-2) NEGATIVE NEGATIVE [facility] LancasterUrine Cfhiuxp5188-17-87 03:41:00* Test Item Value Reference Range Interpretation Comments Urine Nitrite (test code = 98369-2) NEGATIVE NEGATIVE [facility] LancasterUrine Oqbwynv3468-43-72 03:41:00* Test Item Value Reference Range Interpretation Comments Urine Protein (test code = 5804-0) 2+ NEGATIVE H [facility] LancasterUrine Glucose (UA)2019-08-13 03:41:00* Test Item Value Reference Range Interpretation Comments Urine Glucose (UA) (test code = 2349-9) NEGATIVE NEGATIVE [facility] LancasterUrine Uwptgpo9396-74-30 03:41:00* Test Item Value Reference Range Interpretation Comments Urine Ketones (test code = 77997-8) NEGATIVE NEGATIVE [facility] Mkbfusimrjcf7727-04-43 03:41:00* Test Item Value Reference Range Interpretation Comments Urine Urobilinogen (test code = 44554-6) 1 0.2-1 [facility] Tnsjigryt5314-67-86 03:41:00* Test Item Value Reference Range Interpretation Comments Urine Bilirubin (test code = 1978-6) NEGATIVE NEGATIVE [facility] Tzspn7466-28-60 03:41:00* Test Item Value Reference Range Interpretation Comments Urine Blood (test code = 31621-9) NEGATIVE NEGATIVE [facility] QCF5520-68-34 03:41:00* Test Item Value Reference Range Interpretation Comments Urine WBC (test code = 5821-4) 0-5 0-5 [facility] DPT4408-36-89 03:41:00* Test Item Value Reference Range Interpretation Comments Urine RBC (test code = 96476-3) NONE 0-5 [facility] LancasterUrine Tvnnmiqt2089-48-52 03:41:00* Test Item Value Reference Range Interpretation Comments Urine Bacteria (test code = 42371-5) FEW NONE [facility] LancasterUrine Epithelial Ihung6342-83-98 03:41:00 * Test Item Value Reference Range Interpretation Comments Urine Epithelial Cells (test code = 06418-4) FEW NONE [facility] LancasterInfluenza Virus Types A,B Antigen 2019-08-13 03:10:00* Test Item Value Reference Range Interpretation Comments Influenza Virus Types A,B Antigen (test code = 77403-0) NEGATIVE NEGATIVE [facility] LancasterGroup A Streptococcus Dcnszz1342-28-31 03:10:00* Test Item Value Reference Range Interpretation Comments Group A Streptococcus Screen (test code = 88482-1) NEGATIVE NEG ATIVE [facility] SINGLE (PORTABLE)2019-08-13 03:06:00 [facility] [address] [address] Patient Name: VANESSA KHOURY MR #: [id number] : 1975 Age/Sex: 44/M Req #: [id number] Adm Physician: Ordered by: KAY PHILIPPE MD Report #: [id number] Location: ER Room/Bed: Procedure: 0404-001 4 DX/CHEST SINGLE (PORTABLE) Exam Date: 08/13/19 Exa m Time: 0248 REPORT STATUS: Signed EXAMINATION: CHEST SINGLE (PORTABLE) COMPARISON: None INDICATI ON: Fever fever [id number] Y DISCUSSION: Frontal view o f [...] the righ t diaphragm. Signed by: Dr. Nahum Bates MD on 08/13/2019 3:17 AM Dictated By: NAHUM BATES MD 6 Transcribed By: SARAH on 08/13/19316 COPY TO: KAY PHILIPPE MD Fluoroscopic procedure less than one hour spzlstgg2799-61-91 03:00:00* Test Item Value Reference Range Interpretation Comments Lactic Acid Level (test code = Lactic Acid Level) 1.0 0.5- 2.[address] [facility] [facility] than one hour limvkyuy7073-09-15 03:00:00* Test Item Value Reference Range Interpretation [...] section 360bbb-3(b)(1), unless the authorization is termina mitchell or revoked sooner. [facility] are certified under the C linical Laboratory Improvement Amendments of 1988 (CLIA), 42 U.S.C. section 263a , to perform high complexity tests.Specimen sent to [facility] and testing performed by [facility] [address] [place] [address] [phone] Director: Jose Alberto M.D.CLIA # 4 [id number] [facility] CenterFlu[facility] procedure less than one hour jqeqontp4490-17-03 03:00:00* Test Item Value Reference Range Interpretation [...] section 360bbb-3(b)(1), unless the authorization is termina mitchell or revoked sooner. [facility] are certified under the C linical Laboratory Improvement Amendments of 1988 (CLIA), 42 U.S.C. section 263a , to perform high complexity tests.Specimen sent to [facility] and testing performed by [facility] [address] [place] [address] [phone] Director: Jose Alberto M.D.CLIA # 4 [id number] [facility] CenterFluoroscopic procedure less than one hour cpoqpfvi8272-72-43 03:00:00* Test Item Value Reference Range Interpretation [...] section 360bbb-3(b)(1), unless the authorization is termina mitchell or revoked sooner. [facility] are certified under the C linical Laboratory Improvement Amendments of 1988 (CLIA), 42 U.S.C. section 263a , to perform high complexity tests.Specimen sent to [facility] and testing performed by [facility] [address] [place] [address] [phone] Director: Jose Alberto M.D.[facility] # 4 [id number] [facility] CenterFluoroscopic procedure less than one hour dljeobbh6156-46-46 03:00:00* Test Item Value Reference Range Interpretation [...] section 360bbb-3(b)(1), unless the authorization is termina mitchell or revoked sooner. [facility] are certified under the C linical Laboratory Improvement Amendments of 1988 (CLIA), 42 U.S.C. section 263a , to perform high complexity tests.Specimen sent to [facility] and testing performed by [facility] [address] [place] [address] [phone] Director: Jose Alberto M.D.CLIA # 4 [id number] [facility] CenterFluoroscopic procedure less than one hour askjwkkm1776-93-51 03:00:00* Test Item Value Reference Range Interpretation [...] section 360bbb-3(b)(1), unless the authorization is termina mitchell or revoked sooner. [facility] are certified under the C linical Laboratory Improvement Amendments of 1988 (CLIA), 42 U.S.C. section 263a , to perform high complexity tests.Specimen sent to [facility] and testing performed by [facility] [address] [place] [address] [phone] Director: Jose Alberto M.D.CLIA # 4 [id number] [facility] CenterArterial blood pH measurement 2019-08-13 02:40:00* Test Item Value Reference Range Interpretation Comments Arterial Blood pH (test code = 2744-1) 7.49 7.31-7.41 [facility] LancasterpCO2 YflU5215-59-39 02:40:00* Test Item Value Reference Range Interpretation Comments Arterial Blood Partial Pressure CO2 (test code = 2019-8) 32 mm[Hg] 35-45 [facility] LancasterArterial blood bicarbonate measurement (moles/volume)2019-08-13 02:40:00* Test Item Value Reference Range Interpretation Comments Arterial Blood HCO3 (test code = 1960-4) 25 mmol/L 23-28 [facility] LancasterArterial blood base excess by calculation 2019-08-13 02:40:00* Test Item Value Reference Range Interpretation Comments Arterial Blood Base Excess (test code = 1925-7) 1.0 mmol/L -2-3 [facility] LancasterFluoroscopic procedure less than one hour cjbfitjs7441-94-17 02:40:00* Test Item Value Reference Range Interpretation Comments FiO2 (test code = FiO2) 80 % 40 [facility]URI [facility] LancasterArterial blood pH vmohqpznbsh5531-27-19 02:40:00* Test Item Value Reference Range Interpretation Comments Arterial Blood pH (test code = 2744-1) 7.49 7.31-7.41 [facility] LancasterpCO2 IxuN9264-38-02 02:40:00* Test Item Value Reference Range Interpretation Comments Arterial Blood Partial Pressure CO2 (test code = 2018-8) 32 mm[Hg] 35-45 [facility] LancasterArterial blood bicarbonate measurement (moles/volume)2019-08-13 02:40:00* Test Item Value Reference Range Interpretation Comments Arterial Blood HCO3 (test code = 1960-4) 25 mmol/L 23-28 [facility] LancasterArterial blood base excess by calculation 2019-08-13 02:40:00* Test Item Value Reference Range Interpretation Comments Arterial Blood Base Excess (test code = 1925-7) 1.0 mmol/L -2-3 [facility] LancasterFluoroscopic procedure less than one hour jpwmplbl3578-25-11 02:40:00* Test Item Value Reference Range Interpretation Comments FiO2 (test code = FiO2) 80 % 40 [facility] wlabipznpar3516-37-84 02:40:00* Test Item Value Reference Range Interpretation Comments Arterial Blood pH (test code = 2744-1) 7.49 7.31-7.41 [facility] LancasterpCO2 CoqE2704-77-51 02:40:00* Test Item Value Reference Range Interpretation Comments Arterial Blood Partial Pressure CO2 (test code = 2018-8) 32 mm[Hg] 35-45 [facility] LancasterArterial blood bicarbonate measurement (moles/volume)2019-08-13 02:40:00* Test Item Value Reference Range Interpretation Comments Arterial Blood HCO3 (test code = 1960-4) 25 mmol/L - [facility] LancasterArterial blood base excess by calculation 2019-08-13 02:40:00* Test Item Value Reference Range Interpretation Comments Arterial Blood Base Excess (test code = 1925-7) 1.0 mmol/L -2-3 [facility] LancasterFluoroscopic procedure less than one hour ijplxlqr0490-57-85 02:40:00* Test Item Value Reference Range Interpretation Comments FiO2 (test code = FiO2) 80 % 40 [facility] SET [facility] uzopsvvplax2486-67-41 02:40:00* Test Item Value Reference Range Interpretation Comments Arterial Blood pH (test code = 2744-1) 7.49 7.31-7.41 [facility] LancasterpCO2 UwhG7392-80-42 02:40:00* Test Item Value Reference Range Interpretation Comments Arterial Blood Partial Pressure CO2 (test code = 2018-8) 32 mm[Hg] 35-45 [facility] LancasterArterial blood bicarbonate measurement (moles/volume)2019-08-13 02:40:00* Test Item Value Reference Range Interpretation Comments Arterial Blood HCO3 (test code = 1960-4) 25 mmol/L - [facility] LancasterArterial blood base excess by calculation 2019-08-13 02:40:00* Test Item Value Reference Range Interpretation Comments Arterial Blood Base Excess (test code = 1925-7) 1.0 mmol/L -2-3 [facility] LancasterFluoroscopic procedure less than one hour raffyvgm9192-84-36 02:40:00* Test Item Value Reference Range Interpretation Comments FiO2 (test code = FiO2) 80 % 40 [facility] LancasterArterial blood pH enakhsmievz8694-02-83 02:40:00* Test Item Value Reference Range Interpretation Comments Arterial Blood pH (test code = 2744-1) 7.49 7.31-7.41 [facility] LancasterpCO2 CsaT9984-13-35 02:40:00* Test Item Value Reference Range Interpretation Comments Arterial Blood Partial Pressure CO2 (test code = 2019-8) 32 mm[Hg] 35-45 [facility] LancasterArterial blood bicarbonate measurement (moles/volume)2019-08-13 02:40:00* Test Item Value Reference Range Interpretation Comments Arterial Blood HCO3 (test code = 1960-4) 25 mmol/L 23-28 [facility] LancasterArterial blood base excess by calculation 2019-08-13 02:40:00* Test Item Value Reference Range Interpretation Comments Arterial Blood Base Excess (test code = 1925-7) 1.0 mmol/L -2-3 [facility] LancasterFluoroscopic procedure less than one hour kobwyqdd1028-00-94 02:40:00* Test Item Value Reference Range Interpretation Comments FiO2 (test code = FiO2) 80 % 40 [facility] SET [facility] HospitalInfluenza virus A and B antigen identification by bpjmvgljyauparqzib9850-60-95 02:25:00* Test Item Value Reference Range Interpretation Comments Influenza Virus Types A,B Antigen (test code = 14423-9) NEGATIVE NEGATIVE [facility] LancasterFluoroscopic procedure less than one hour nstfnvuw8102-86-11 02:25:00* Test Item Value Reference Range Interpretation Comments Chlamydia pneumoniae DNA (PCR) (test code = Chlamydia pneumoniae DNA (PCR)) NOT DETECTED NOT DETECT [facility] LancasterRespiratory virus pkmvg3468-86-47 02:25:00* Test Item Value Reference Range Interpretation Comments Influenza Type A (RT-PCR) (test code = 166097357) NOT DETECTED NOT DETECT [facility] LancasterFluoroscopic procedure less than one hour fgrpiknb4691-54-99 02:25:00* Test Item Value Reference Range Interpretation Comments Mycoplasma pneumoniae (PCR) (test code = Mycoplasma pn eumoniae (PCR)) NOT DETECTED NOT DETECT [facility] lhsoe0277-33-52 02:25:00* Test Item Value Reference Range Interpretation Comments Influenza Type B (RT-PCR) (test code = 265239772) NOT DETECTED NOT DETECT [facility] jiqbo9886-48-28 02:25:00* Test Item Value Reference Range Interpretation Comments Respiratory Syncytial Virus (PCR) (test code = 519284865) NO T DETECTED NOT DETECT [facility] nnlwv4891-64-76 02:25:00* Test Item Value Reference Range Interpretation Comments Bordetella pertussis DNA (PCR) (test code = 180159692) NOT DETEC [place] NOT DETECT [facility] vvsug6571-32-55 02:25:00* Test Item Value Reference Range Interpretation Comments Parainfluenza Type 1 (PCR) (test code = 519322506) NOT DETECTED NOT DETECT [facility] dhmri7390-15-17 02:25:00* Test Item Value Reference Range Interpretation Comments Parainfluenza Type 2 (PCR) (test code = 491031799) NOT DETECTED NOT DETECT [facility] koxbd8792-84-18 02:25:00* Test Item Value Reference Range Interpretation Comments Parainfluenza Type 3 (PCR) (test code = 328436460) NOT DETECTED NOT DETECT [facility] jtgkeqlu5022-20-57 02:25:00* Test Item Value Reference Range Interpretation Comments Parainfluenza Type 4 (PCR) (test code = Parainfluenza Type 4 (PCR)) NOT DETECTED NOT DETECT [facility] ogcxm5046-66-80 02:25:00* Test Item Value Reference Range Interpretation Comments Rhinovirus (PCR) (test code = 525703562) NOT DETECTED NOT DETECT [facility] fzget2846-35-83 02:25:00* Test Item Value Reference Range Interpretation Comments Human Metapneumovirus (PCR) (test code = 581374505) NOT DETECTED NO T DETECT [facility] LancasterRespiratory virus rqfhz2371-93-21 02:25:00* Test Item Value Reference Range Interpretation Comments Adenovirus (PCR) (test code = 864888621) NOT DETECTED NOT DETECT [facility] LancasterFluoroscopic procedure less than one hour flnzwkhw4223-92-19 02:25:00* Test Item Value Reference Range Interpretation Comments [...] management decisions. This sample was tested at [facility] using the [employer] Respiratory Panel. It is FDA cleared and has been verified and approved by t [facility] for clinical use on nasopharyngeal swa b specimens.ALL RESPIRATORY VIRAL PANEL Testing performed at [place], [place] [address]RESULTS HAVE BEEN CALLED TO THE [facility]Flu[facility]oscopic procedure less than one hour pyreehqt9275-03-06 02:25:00* Test Item Value Reference Range Interpretation Comments Coronavirus Type HKU1 (PCR) (test code = Coronavirus T ype HKU1 (PCR)) NOT DETECTED NOT DETECT [facility] LancasterFluoroscopic procedure less than one hour bvdcrmks5335-86-02 02:25:00* Test Item Value Reference Range Interpretation Comments Coronavirus Type NL63 (PCR) (test code = Coronavirus T ype NL63 (PCR)) NOT DETECTED NOT DETECT [facility] LancasterFluoroscopic procedure less than one hour pwaritla9951-95-85 02:25:00* Test Item Value Reference Range Interpretation Comments Coronavirus Type OC43 (PCR) (test code = Coronavirus T ype OC43 (PCR)) NOT DETECTED NOT DETECT [facility] pyogenes antigen detection in ynohjm5836-55-64 02:25:00* Test Item Value Reference Range Interpretation Comments Group A Streptococcus Screen (test code = 11120-5) NEGATIVE NEG ATIVE [facility] LancasterInfluenza virus A and B antigen identification by ovsuubrcbwgcqbnbze7855-30-77 02:25:00* Test Item Value Reference Range Interpretation Comments Influenza Virus Types A,B Antigen (test code = 91070-7) NEGATIVE NEGATIVE [facility] LancasterFluoroscopic procedure less than one hour ddsudysq0501-61-40 02:25:00* Test Item Value Reference Range Interpretation Comments Chlamydia pneumoniae DNA (PCR) (test code = Chlamydia pneumoniae DNA (PCR)) NOT DETECTED NOT DETECT [facility] LancasterRespiratory virus wublm9154-05-42 02:25:00* Test Item Value Reference Range Interpretation Comments Influenza Type A (RT-PCR) (test code = 503780154) NOT DETECTED NOT DETECT [facility] LancasterFluoroscopic procedure less than one hour jsiyqpcy3547-82-81 02:25:00* Test Item Value Reference Range Interpretation Comments Mycoplasma pneumoniae (PCR) (test code = Mycoplasma pn eumoniae (PCR)) NOT DETECTED NOT DETECT [facility] LancasterRespiratory virus ovfze0737-86-69 02:25:00* Test Item Value Reference Range Interpretation Comments Influenza Type B (RT-PCR) (test code = 168866655) NOT DETECTED NOT DETECT [facility] LancasterRespiratory virus edest4415-19-06 02:25:00* Test Item Value Reference Range Interpretation Comments Respiratory Syncytial Virus (PCR) (test code = 742540845) NO T DETECTED NOT DETECT [facility] LancasterRespiratory virus yqdqq6765-52-85 02:25:00* Test Item Value Reference Range Interpretation Comments Bordetella pertussis DNA (PCR) (test code = 466916991) NOT DETEC [place] NOT DETECT [facility] LancasterRespiratory virus ldvwc3559-69-32 02:25:00* Test Item Value Reference Range Interpretation Comments Parainfluenza Type 1 (PCR) (test code = 055206310) NOT DETECTED NOT DETECT [facility] virus uxzcu3337-64-63 02:25:00* Test Item Value Reference Range Interpretation Comments Parainfluenza Type 2 (PCR) (test code = 834319797) NOT DETECTED NOT DETECT [facility]Res[facility] virus ztyoh9580-64-37 02:25:00* Test Item Value Reference Range Interpretation Comments Parainfluenza Type 3 (PCR) (test code = 365042645) NOT DETECTED NOT DETECT [facility] LancasterFluoroscopic procedure less than one hour ubzhlarx3984-35-56 02:25:00* Test Item Value Reference Range Interpretation Comments Parainfluenza Type 4 (PCR) (test code = Parainfluenza Type 4 (PCR)) NOT DETECTED NOT DETECT [facility] LancasterRes[facility] virus ypewi0306-21-50 02:25:00* Test Item Value Reference Range Interpretation Comments Rhinovirus (PCR) (test code = 006575735) NOT DETECTED NOT DETECT [facility] LancasterRes[facility] virus [id number] 02:25:00* Test Item Value Reference Range Interpretation Comments Human Metapneumovirus (PCR) (test code = 094739788) NOT DETECTED NO T DETECT [facility] Lancaster[facility] virus bamwo6064-41-66 02:25:00* Test Item Value Reference Range Interpretation Comments Adenovirus (PCR) (test code = 018123706) NOT DETECTED NOT DETECT [facility] LancasterFluoroscopic procedure less than one hour fyhlpryb2757-22-86 02:25:00* Test Item Value Reference Range Interpretation Comments [...] management decisions. This sample was tested at [facility] using the [employer] ray Respiratory Panel. It is FDA cleared and has been verified and approved by [facility] for clinical use on nasopharyngeal swa b specimens.ALL RESPIRATORY VIRAL PANEL Testing performed at [facility] [id number] [place], [place] [address]YLJFWYG HAVE BEEN CALLED TO THE [place] [facility] CenterFlu[facility] less than one hour wewdevxt3764-50-31 02:25:00* Test Item Value Reference Range Interpretation Comments Coronavirus Type HKU1 (PCR) (test code = Coronavirus T ype HKU1 (PCR)) NOT DETECTED NOT DETECT [facility] LancasterFluoroscopic procedure less than one hour hoomrwuq3557-03-76 02:25:00* Test Item Value Reference Range Interpretation Comments Coronavirus Type NL63 (PCR) (test code = Coronavirus T ype NL63 (PCR)) NOT DETECTED NOT DETECT [facility] LancasterFluoroscopic procedure less than one hour anenyvnn2533-47-96 02:25:00* Test Item Value Reference Range Interpretation Comments Coronavirus Type OC43 (PCR) (test code = Coronavirus T ype OC43 (PCR)) NOT DETECTED NOT DETECT [facility] antigen detection in tedgwi5865-19-26 02:25:00* Test Item Value Reference Range Interpretation Comments Group A Streptococcus Screen (test code = 63326-5) NEGATIVE NEG ATIVE [facility] LancasterInfluenza virus A and B antigen identification by ycufyrmkeghbevntbi1210-53-29 02:25:00* Test Item Value Reference Range Interpretation Comments Influenza Virus Types A,B Antigen (test code = 36048-1) NEGATIVE NEGATIVE [facility] LancasterFluoroscopic procedure less than one hour sbuwnmip9103-72-56 02:25:00* Test Item Value Reference Range Interpretation Comments Chlamydia pneumoniae DNA (PCR) (test code = Chlamydia pneumoniae DNA (PCR)) NOT DETECTED NOT DETECT [facility] LancasterRes[facility] virus nrxuk1694-27-47 02:25:00* Test Item Value Reference Range Interpretation Comments Influenza Type A (RT-PCR) (test code = 037466571) NOT DETECTED NOT DETECT [facility] LancasterFluoroscopic procedure less than one hour kipfmjgd7879-74-81 02:25:00* Test Item Value Reference Range Interpretation Comments Mycoplasma pneumoniae (PCR) (test code = Mycoplasma pn eumoniae (PCR)) NOT DETECTED NOT DETECT [facility] LancasterRes[facility] virus luays8080-44-22 02:25:00* Test Item Value Reference Range Interpretation Comments Influenza Type B (RT-PCR) (test code = 438213910) NOT DETECTED NOT DETECT [facility] LancasterRes[facility] virus gpwgc2876-45-62 02:25:00* Test Item Value Reference Range Interpretation Comments Respiratory Syncytial Virus (PCR) (test code = 974345234) NO T DETECTED NOT DETECT [facility] LancasterRes[facility] virus btysz4751-22-13 02:25:00* Test Item Value Reference Range Interpretation Comments Bordetella pertussis DNA (PCR) (test code = 034358243) NOT DETEC MITCHELL NOT DETECT [facility] LancasterRes[facility] virus vidrx2574-42-34 02:25:00* Test Item Value Reference Range Interpretation Comments Parainfluenza Type 1 (PCR) (test code = 281568749) NOT DETECTED NOT DETECT [facility] LancasterRes[facility] virus bnoee7740-03-74 02:25:00* Test Item Value Reference Range Interpretation Comments Parainfluenza Type 2 (PCR) (test code = 144702184) NOT DETECTED NOT DETECT [facility] LancasterRes[facility] virus aokvi3903-75-41 02:25:00* Test Item Value Reference Range Interpretation Comments Parainfluenza Type 3 (PCR) (test code = 764379545) NOT DETECTED NOT DETECT [facility] LancasterFluoroscopic procedure less than one hour dqcjnxfh1733-77-27 02:25:00* Test Item Value Reference Range Interpretation Comments Parainfluenza Type 4 (PCR) (test code = Parainfluenza Type 4 (PCR)) NOT DETECTED NOT DETECT [facility] LancasterRes[facility] virus evdtm9801-42-32 02:25:00* Test Item Value Reference Range Interpretation Comments Rhinovirus (PCR) (test code = 833558881) NOT DETECTED NOT DETECT [facility] LancasterRes[facility] virus iozft8748-70-65 02:25:00* Test Item Value Reference Range Interpretation Comments Human Metapneumovirus (PCR) (test code = 305785205) NOT DETECTED NO T DETECT [facility] LancasterRes[facility] virus unqsx8281-26-95 02:25:00* Test Item Value Reference Range Interpretation Comments Adenovirus (PCR) (test code = 837764221) NOT DETECTED NOT DETECT [facility] LancasterFluoroscopic procedure less than one hour toffklte7633-94-00 02:25:00* Test Item Value Reference Range Interpretation Comments [...] management decisions. This sample was tested at [facility] using the [employer] ray Respiratory Panel. It is FDA cleared and has been verified and approved by t [facility] for clinical use on nasopharyngeal swa b specimens.ALL RESPIRATORY VIRAL PANEL Testing performed at [place], [place] [address]RESULTS HAVE BEEN [facility]ED [facility] one hour yxcbpwjk4726-60-38 02:25:00* Test Item Value Reference Range Interpretation Comments Coronavirus Type HKU1 (PCR) (test code = Coronavirus T ype HKU1 (PCR)) NOT DETECTED NOT DETECT [facility] LancasterFluoroscopic procedure less than one hour cefztnbk8962-22-39 02:25:00* Test Item Value Reference Range Interpretation Comments Coronavirus Type NL63 (PCR) (test code = Coronavirus T ype NL63 (PCR)) NOT DETECTED NOT DETECT [facility] LancasterFluoroscopic procedure less than one hour nhhrxfwn5467-92-15 02:25:00* Test Item Value Reference Range Interpretation Comments Coronavirus Type OC43 (PCR) (test code = Coronavirus T ype OC43 (PCR)) NOT DETECTED NOT DETECT [facility] pyogenes antigen detection in nfximb3001-17-27 02:25:00* Test Item Value Reference Range Interpretation Comments Group A Streptococcus Screen (test code = 54187-0) NEGATIVE NEG ATIVE [facility] LancasterInfluenza virus A and B antigen identification by gkndxkswztnczjgjid4484-62-66 02:25:00* Test Item Value Reference Range Interpretation Comments Influenza Virus Types A,B Antigen (test code = 14431-7) NEGATIVE NEGATIVE [facility] LancasterFluoroscopic procedure less than one hour dwissdkm3746-37-15 02:25:00* Test Item Value Reference Range Interpretation Comments Chlamydia pneumoniae DNA (PCR) (test code = Chlamydia pneumoniae DNA (PCR)) NOT DETECTED NOT DETECT [facility] LancasterRespiratory virus amedm8687-42-67 02:25:00* Test Item Value Reference Range Interpretation Comments Influenza Type A (RT-PCR) (test code = 249555138) NOT DETECTED NOT DETECT [facility] LancasterFluoroscopic procedure less than one hour gxvmfpzn6276-87-44 02:25:00* Test Item Value Reference Range Interpretation Comments Mycoplasma pneumoniae (PCR) (test code = Mycoplasma pn eumoniae (PCR)) NOT DETECTED NOT DETECT [facility] LancasterRes[facility] virus bktbe2316-09-51 02:25:00* Test Item Value Reference Range Interpretation Comments Influenza Type B (RT-PCR) (test code = 358458203) NOT DETECTED NOT DETECT [facility] LancasterRes[facility] virus schnw5291-49-14 02:25:00* Test Item Value Reference Range Interpretation Comments Respiratory Syncytial Virus (PCR) (test code = 116025649) NO T DETECTED NOT DETECT [facility] LancasterRes[facility] virus ilenq6876-15-95 02:25:00* Test Item Value Reference Range Interpretation Comments Bordetella pertussis DNA (PCR) (test code = 832902651) NOT DETEC MITCHELL NOT DETECT [facility] LancasterRespiratory virus exbjs2432-70-18 02:25:00* Test Item Value Reference Range Interpretation Comments Parainfluenza Type 1 (PCR) (test code = 209483146) NOT DETECTED NOT DETECT [facility] LancasterRes[facility] virus pofrx6264-80-89 02:25:00* Test Item Value Reference Range Interpretation Comments Parainfluenza Type 2 (PCR) (test code = 904650130) NOT DETECTED NOT DETECT [facility] LancasterRespiratory virus hhqdj1589-49-83 02:25:00* Test Item Value Reference Range Interpretation Comments Parainfluenza Type 3 (PCR) (test code = 124748877) NOT DETECTED NOT DETECT [facility] LancasterFluoroscopic procedure less than one hour jjcxvxkt9072-01-99 02:25:00* Test Item Value Reference Range Interpretation Comments Parainfluenza Type 4 (PCR) (test code = Parainfluenza Type 4 (PCR)) NOT DETECTED NOT DETECT [facility] LancasterRes[facility] virus avnpv1466-62-23 02:25:00* Test Item Value Reference Range Interpretation Comments Rhinovirus (PCR) (test code = 829055933) NOT DETECTED NOT DETECT [facility] iquco8554-22-46 02:25:00* Test Item Value Reference Range Interpretation Comments Human Metapneumovirus (PCR) (test code = 258612165) NOT DETECTED NO T DETECT [facility] LancasterRes[facility] virus thffe4817-25-88 02:25:00* Test Item Value Reference Range Interpretation Comments Adenovirus (PCR) (test code = 567685725) NOT DETECTED NOT DETECT [facility] LancasterFluoroscopic procedure less than one hour ydmyutjw3949-35-99 02:25:00* Test Item Value Reference Range Interpretation Comments [...] management decisions. This sample was tested at [facility] using the [employer] Film[employer] ray Respiratory Panel. It is FDA cleared and has been verified and approved by [facility] for clinical use on nasopharyngeal swa b specimens.ALL RESPIRATORY VIRAL PANEL Testing performed at [address] [address]GTALSNR HAVE BEEN [facility]Flu[facility] procedure less than one hour yplttjju9705-37-14 02:25:00* Test Item Value Reference Range Interpretation Comments Coronavirus Type HKU1 (PCR) (test code = Coronavirus T ype HKU1 (PCR)) NOT DETECTED NOT DETECT [facility] LancasterFluoroscopic procedure less than one hour tkbfqxqh8763-74-88 02:25:00* Test Item Value Reference Range Interpretation Comments Coronavirus Type NL63 (PCR) (test code = Coronavirus T ype NL63 (PCR)) NOT DETECTED NOT DETECT [facility] LancasterFluoroscopic procedure less than one hour mlridzoy1574-19-14 02:25:00* Test Item Value Reference Range Interpretation Comments Coronavirus Type OC43 (PCR) (test code = Coronavirus T ype OC43 (PCR)) NOT DETECTED NOT DETECT [facility]reptococcus pyogenes antigen detection in fbukkj5279-62-60 02:25:00* Test Item Value Reference Range Interpretation Comments Group A Streptococcus Screen (test code = 47912-3) NEGATIVE NEG ATIVE [facility] LancasterInfluenza virus A and B antigen identification by agyefyomrhqwqyijky1110-28-04 02:25:00* Test Item Value Reference Range Interpretation Comments Influenza Virus Types A,B Antigen (test code = 48752-5) NEGATIVE NEGATIVE [facility] LancasterFluoroscopic procedure less than one hour lsrejlig8063-92-14 02:25:00* Test Item Value Reference Range Interpretation Comments Chlamydia pneumoniae DNA (PCR) (test code = Chlamydia pneumoniae DNA (PCR)) NOT DETECTED NOT DETECT [facility] LancasterRespiratory virus fpshc8091-81-25 02:25:00* Test Item Value Reference Range Interpretation Comments Influenza Type A (RT-PCR) (test code = 640760565) NOT DETECTED NOT DETECT [facility] LancasterFluoroscopic procedure less than one hour njafxbmm5576-80-33 02:25:00* Test Item Value Reference Range Interpretation Comments Mycoplasma pneumoniae (PCR) (test code = Mycoplasma pn eumoniae (PCR)) NOT DETECTED NOT DETECT [facility] LancasterRespiratory virus rxodk0960-04-43 02:25:00* Test Item Value Reference Range Interpretation Comments Influenza Type B (RT-PCR) (test code = 738832944) NOT DETECTED NOT DETECT [facility] LancasterRespiratory virus tnrla5171-37-27 02:25:00* Test Item Value Reference Range Interpretation Comments Respiratory Syncytial Virus (PCR) (test code = 498827059) NO T DETECTED NOT DETECT [facility] LancasterRespiratory virus ldicy4549-67-90 02:25:00* Test Item Value Reference Range Interpretation Comments Bordetella pertussis DNA (PCR) (test code = 793454825) NOT DETEC MIT[place]LL NOT DETECT [facility] LancasterRespiratory virus velbr8665-66-64 02:25:00* Test Item Value Reference Range Interpretation Comments Parainfluenza Type 1 (PCR) (test code = 707768371) NOT DETECTED NOT DETECT [facility] LancasterRespiratory virus fcgaa2046-30-21 02:25:00* Test Item Value Reference Range Interpretation Comments Parainfluenza Type 2 (PCR) (test code = 219524427) NOT DETECTED NOT DETECT [facility] LancasterRes[facility] virus deuum3775-79-39 02:25:00* Test Item Value Reference Range Interpretation Comments Parainfluenza Type 3 (PCR) (test code = 103027621) NOT DETECTED NOT DETECT [facility] LancasterFluoroscopic procedure less than one hour xdzkwtzx7601-08-70 02:25:00* Test Item Value Reference Range Interpretation Comments Parainfluenza Type 4 (PCR) (test code = Parainfluenza Type 4 (PCR)) NOT DETECTED NOT DETECT [facility] LancasterRespiratory virus ylpqx8820-35-09 02:25:00* Test Item Value Reference Range Interpretation Comments Rhinovirus (PCR) (test code = 901806547) NOT DETECTED NOT DETECT [facility] LancasterRespiratory virus rhhxl4331-35-12 02:25:00* Test Item Value Reference Range Interpretation Comments Human Metapneumovirus (PCR) (test code = 532604272) NOT DETECTED NO T DETECT [facility] LancasterRespiratory virus fbmfe9226-70-41 02:25:00* Test Item Value Reference Range Interpretation Comments Adenovirus (PCR) (test code = 443216824) NOT DETECTED NOT DETECT [facility] LancasterFluoroscopic procedure less than one hour kwzywrqz8962-11-66 02:25:00* Test Item Value Reference Range Interpretation Comments [...] management decisions. This sample was tested at [facility] using the [employer] Film[employer] ray Respiratory Panel. It is FDA cleared and has been verified and approved by [facility] for clinical use on nasopharyngeal swa b specimens.ALL RESPIRATORY VIRAL PANEL Testing performed at [address] [address]ALBUBCL HAVE BEEN [facility]Flu[facility] less than one hour lebtomrz0978-37-62 02:25:00* Test Item Value Reference Range Interpretation Comments Coronavirus Type HKU1 (PCR) (test code = Coronavirus T ype HKU1 (PCR)) NOT DETECTED NOT DETECT [facility] LancasterFluoroscopic procedure less than one hour kgmxtbew2454-10-18 02:25:00* Test Item Value Reference Range Interpretation Comments Coronavirus Type NL63 (PCR) (test code = Coronavirus T ype NL63 (PCR)) NOT DETECTED NOT DETECT [facility] LancasterFluoroscopic procedure less than one hour chiicoyv1598-24-00 02:25:00* Test Item Value Reference Range Interpretation Comments Coronavirus Type OC43 (PCR) (test code = Coronavirus T ype OC43 (PCR)) NOT DETECTED NOT DETECT [facility] pyogenes antigen detection in qqyqsn0502-96-02 02:25:00* Test Item Value Reference Range Interpretation Comments Group A Streptococcus Screen (test code = 34025-8) NEGATIVE NEG ATIVE [facility] LancasterUrine color fvpmulqsuspah9591-68-35 02:20:00* Test Item Value Reference Range Interpretation Comments Urine Color (test code = 5778-6) ASHISH YELLOW [facility] LancasterUrine mjimkyh8739-64-64 02:20:00* Test Item Value Reference Range Interpretation Comments Urine Clarity (test code = 16760-5) HAZY CLEAR [facility] Centerpecific gravity of Urine by Test strip 2019-08-13 02:20:00* Test Item Value Reference Range Interpretation Comments Urine Specific [place] (test code = 5811-5) 1.030 1.010-1.02 5 [facility] LancasterU[facility] pH measurement by automated test yqlun1548-05-70 02:20:00* Test Item Value Reference Range Interpretation Comments Urine pH (test code = 91176-9) 6 5-7 [facility] LancasterU[facility] leukocyte esterase detection by zfpefren3536-48-84 02:20:00* Test Item Value Reference Range Interpretation Comments Urine Leukocyte Esterase (test code = 5799-2) NEGATIVE NEGATIVE [facility] LancasterU[facility] nitrite xqbpplzbn4989-09-45 02:20:00* Test Item Value Reference Range Interpretation Comments Urine Nitrite (test code = 73094-3) NEGATIVE NEGATIVE [facility] LancasterU[facility] protein measurement by test strip (mass/volume)2019-08-13 02:20:00* Test Item Value Reference Range Interpretation Comments Urine Protein (test code = 5804-0) 2+ NEGATIVE [facility] LancasterUrine glucose ezckuwnxa7535-26-12 02:20:00* Test Item Value Reference Range Interpretation Comments Urine Glucose (UA) (test code = 2349-9) NEGATIVE NEGATIVE [facility] LancasterUrine ketones detection by automated test qdkfx2108-35-61 02:20:00* Test Item Value Reference Range Interpretation Comments Urine Ketones (test code = 15884-8) NEGATIVE NEGATIVE [facility] LancasterUrine urobilinogen measurement by test strip (mass/volume)2019-08-13 02:20:00* Test Item Value Reference Range Interpretation Comments Urine Urobilinogen (test code = 69620-5) 1 0.2-1 [facility] LancasterU[facility] total bilirubin measurement (mass/volume)2019-08-13 02:20:00* Test Item Value Reference Range Interpretation Comments Urine Bilirubin (test code = 1977-6) NEGATIVE NEGATIVE [facility] LancasterU[facility] erythrocytes twaednhaf2744-49-37 02:20:00* Test Item Value Reference Range Interpretation Comments Urine Blood (test code = 99465-6) NEGATIVE NEGATIVE [facility] LancasterAutomated urine sediment leukocyte count by microscopy (number/high power field)2019-08-13 02:20:00* Test Item Value Reference Range Interpretation Comments Urine WBC (test code = 5821-4) 0-5 0-5 [facility] LancasterErythrocytes detection in urine sediment by light qhsldguvhh5764-17-45 02:20:00* Test Item Value Reference Range Interpretation Comments Urine RBC (test code = 41832-7) NONE 0-5 [facility] LancasterBacteria detection in urine sediment by light pmgtnpzmsb0341-88-54 02:20:00* Test Item Value Reference Range Interpretation Comments Urine Bacteria (test code = 17538-2) FEW NONE [facility] LancasterEpithelial cells detection in urine sediment by light xpukrmjsgb0725-25-33 02:20:00* Test Item Value Reference Range Interpretation Comments Urine Epithelial Cells (test code = 37202-7) FEW NONE [facility] LancasterActivated Partial Thromboplast Time 2019-08-13 02:10:00* Test Item Value Reference Range Interpretation Comments Activated Partial Thromboplast Time (test code = 98125-9) 32.7 23.8-35.5 [facility] LancasterArterial Blood fG8175-13-88 02:09:00* Test Item Value Reference Range Interpretation Comments Arterial Blood pH (test code = 2744-1) 7.49 7.31-7.41 H [facility] LancasterArterial Blood Partial Pressure CO2 2019-08-13 02:09:00* Test Item Value Reference Range Interpretation Comments Arterial Blood Partial Pressure CO2 (test code = 2019-8) 32 35-45 L [facility] LancasterArterial Blood YQU15747-81-96 02:09:00* Test Item Value Reference Range Interpretation Comments Arterial Blood HCO3 (test code = 1960-4) 25 23-28 [facility] LancasterArterial Blood Base Nxcnom3513-49-53 02:09:00* Test Item Value Reference Range Interpretation Comments Arterial Blood Base Excess (test code = 1925-7) 1.0 -2-3 [facility] LancasterFiO22020-04-04 02:09:00* Test Item Value Reference Range Interpretation Comments FiO2 (test code = FiO2) 80 40 VENTURI SET [facility]PC[facility] LancasterFluoroscopic procedure less than one hour hucqgezz1177-03-93 02:00:00* Test Item Value Reference Range Interpretation [...] section 360bbb-3(b)(1), unless the authorization is termina mitchell or revoked sooner. [facility] are certified under the C linical Laboratory Improvement Amendments of 1988 (CLIA), 42 U.S.C. section 263a , to perform high complexity tests.Specimen sent to [facility] and testing performed by [facility] [address] [place] [address] [phone] Director: Jose Alberto M.D.CLIA # 4 [id number] [facility] CenterFluoroscopic procedure less than one hour jveueuye6356-95-74 02:00:00* Test Item Value Reference Range Interpretation [...] section 360bbb-3(b)(1), unless the authorization is termina mitchell or revoked sooner. [facility] are certified under the C linical Laboratory Improvement Amendments of 1988 (CLIA), 42 U.S.C. section 263a , to perform high complexity tests.Specimen sent to [facility] and testing performed by [facility] [address] [place] [address] [phone] Director: Jose Alberto M.D.CLIA # 4 [id number] Medical Center LancasterFluoroscopic procedure less than one hour zcumlcgb5751-78-26 02:00:00* Test Item Value Reference Range Interpretation [...] section 360bbb-3(b)(1), unless the authorization is termina mitchell or revoked sooner. [facility] are certified under the C linical Laboratory Improvement Amendments of 1988 (CLIA), 42 U.S.C. section 263a , to perform high complexity tests.Specimen sent to [facility] and testing performed by [facility] [address] [place] [address] [phone] Director: Jose Alberto M.D.CLIA # 4 [id number] [facility] CenterFluoroscopic procedure less than one hour qeejyraz8033-88-95 02:00:00* Test Item Value Reference Range Interpretation [...] section 360bbb-3(b)(1), unless the authorization is termina mitchell or revoked sooner. [facility] are certified under the C linical Laboratory Improvement Amendments of 1988 (CLIA), 42 U.S.C. section 263a , to perform high complexity tests.Specimen sent to [facility] and testing performed by [facility] [address] [place] [address] [phone] Director: Jose Alberto M.D.CLIA # 4 [id number] [facility] CenterFluor[facility] less than one hour fzjuznys0279-41-74 02:00:00* Test Item Value Reference Range Interpretation [...] section 360bbb-3(b)(1), unless the authorization is termina mitchell or revoked sooner. [facility] are certified under the C linical Laboratory Improvement Amendments of 1988 (CLIA), 42 U.S.C. section 263a , to perform high complexity tests.Specimen sent to [facility] and testing performed by Clinical [facility]ology [address] [place] [address] [phone] Director: Jose Alberto M.D.[facility] # [id number] [facility] Center LancasterArterial blood pH measurement 2019-08-13 01:40:00* Test Item Value Reference Range Interpretation Comments Arterial Blood pH (test code = 2744-1) 7.49 7.31-7.41 [facility] LancasterpCO2 KnwV0787-73-74 01:40:00* Test Item Value Reference Range Interpretation Comments Arterial Blood Partial Pressure CO2 (test code = 2018-8) 32 35-45 [facility] LancasterArterial blood bicarbonate measurement (moles/volume)2019-08-13 01:40:00* Test Item Value Reference Range Interpretation Comments Arterial Blood HCO3 (test code = 1960-4) 25 23-28 [facility] LancasterArterial blood base excess by calculation 2019-08-13 01:40:00* Test Item Value Reference Range Interpretation Comments Arterial Blood Base Excess (test code = 1925-7) 1.0 -2-3 [facility] LancasterFluoroscopic procedure less than one hour hyxjdxlh6470-56-49 01:40:00* Test Item Value Reference Range Interpretation Comments FiO2 (test code = FiO2) 80 40 VENTURI SET [facility]PCres[facility] LancasterArterial blood pH zcqntvrbyqw1619-38-13 01:40:00* Test Item Value Reference Range Interpretation Comments Arterial Blood pH (test code = 2744-1) 7.49 7.31-7.41 [facility] LancasterpCO2 QcjJ6542-13-85 01:40:00* Test Item Value Reference Range Interpretation Comments Arterial Blood Partial Pressure CO2 (test code = 2018-8) 32 35-45 [facility] LancasterArterial blood bicarbonate measurement (moles/volume)2019-08-13 01:40:00* Test Item Value Reference Range Interpretation Comments Arterial Blood HCO3 (test code = 1960-4) 25 23-28 [facility] LancasterArterial blood base excess by calculation 2019-08-13 01:40:00* Test Item Value Reference Range Interpretation Comments Arterial Blood Base Excess (test code = 1925-7) 1.0 -2-3 [facility] LancasterFluoroscopic procedure less than one hour xxsbzmop6511-94-72 01:40:00* Test Item Value Reference Range Interpretation Comments FiO2 (test code = FiO2) 80 40 [facility]URI SET [facility] lgpramlwiir6080-19-36 01:40:00* Test Item Value Reference Range Interpretation Comments Arterial Blood pH (test code = 2744-1) 7.49 7.31-7.41 [facility] LancasterpCO2 DpgN5185-75-89 01:40:00* Test Item Value Reference Range Interpretation Comments Arterial Blood Partial Pressure CO2 (test code = 2019-8) 32 35-45 [facility] LancasterArterial blood bicarbonate measurement (moles/volume)2019-08-13 01:40:00* Test Item Value Reference Range Interpretation Comments Arterial Blood HCO3 (test code = 1960-4) 25 23-28 [facility] LancasterArterial blood base excess by calculation 2019-08-13 01:40:00* Test Item Value Reference Range Interpretation Comments Arterial Blood Base Excess (test code = 1925-7) 1.0 -2-3 [facility] LancasterFluoroscopic procedure less than one hour sfvtkocj5972-22-99 01:40:00* Test Item Value Reference Range Interpretation Comments FiO2 (test code = FiO2) 80 40 VENTURI SET [facility]Ar[facility] pxsqkgiuhil7502-14-92 01:40:00* Test Item Value Reference Range Interpretation Comments Arterial Blood pH (test code = 2744-1) 7.49 7.31-7.41 [facility] LancasterpCO2 DtcL9315-32-50 01:40:00* Test Item Value Reference Range Interpretation Comments Arterial Blood Partial Pressure CO2 (test code = 2019-8) 32 35-45 [facility] LancasterArterial blood bicarbonate measurement (moles/volume)2019-08-13 01:40:00* Test Item Value Reference Range Interpretation Comments Arterial Blood HCO3 (test code = 1960-4) 25 23-28 [facility] LancasterArterial blood base excess by calculation 2019-08-13 01:40:00* Test Item Value Reference Range Interpretation Comments Arterial Blood Base Excess (test code = 1925-7) 1.0 -2-3 [facility] LancasterFluoroscopic procedure less than one hour xjbypszv2056-65-44 01:40:00* Test Item Value Reference Range Interpretation Comments FiO2 (test code = FiO2) 80 40 VENTURI SET [facility] HospitalAr[facility] blood pH eaxkwoemhgw2055-67-67 01:40:00* Test Item Value Reference Range Interpretation Comments Arterial Blood pH (test code = 2744-1) 7.49 7.31-7.41 [facility] LancasterpCO2 BofN3405-03-65 01:40:00* Test Item Value Reference Range Interpretation Comments Arterial Blood Partial Pressure CO2 (test code = 2019-8) 32 35-45 [facility] LancasterArterial blood bicarbonate measurement (moles/volume)2019-08-13 01:40:00* Test Item Value Reference Range Interpretation Comments Arterial Blood HCO3 (test code = 1960-4) 25 23-28 [facility] LancasterArterial blood base excess by calculation 2019-08-13 01:40:00* Test Item Value Reference Range Interpretation Comments Arterial Blood Base Excess (test code = 1925-7) 1.0 -2-3 [facility] LancasterFluoroscopic procedure less than one hour vaizlhen0157-50-37 01:40:00* Test Item Value Reference Range Interpretation Comments FiO2 (test code = FiO2) 80 40 VENTURI SET [facility] HospitalActivated partial thromboplastin time (aPTT) in platelet poor plasma by coagulation assay 2019-08-13 01:25:00* Test Item Value Reference Range Interpretation Comments Activated Partial Thromboplast Time (test code = 40232-9) 32.7 23.8-35.5 [facility] LancasterInfluenza virus A and B antigen identification by qeqeiruwjsbwgwnlzv3410-73-12 01:25:00* Test Item Value Reference Range Interpretation Comments Influenza Virus Types A,B Antigen (test code = 09062-9) NEGATIVE NEGATIVE [facility] LancasterFluoroscopic procedure less than one hour vkdgrucv3781-79-36 01:25:00* Test Item Value Reference Range Interpretation Comments Chlamydia pneumoniae DNA (PCR) (test code = Chlamydia pneumoniae DNA (PCR)) NOT DETECTED NOT DETECT [facility] zitct8822-42-77 01:25:00* Test Item Value Reference Range Interpretation Comments Influenza Type A (RT-PCR) (test code = 773406581) NOT DETECTED NOT DETECT [facility] HospitalFlu[facility]oscopic procedure less than one hour hharktim4811-48-89 01:25:00* Test Item Value Reference Range Interpretation Comments Mycoplasma pneumoniae (PCR) (test code = Mycoplasma pn eumoniae (PCR)) NOT DETECTED NOT DETECT [facility]Res[facility] mushw7509-39-26 01:25:00* Test Item Value Reference Range Interpretation Comments Influenza Type B (RT-PCR) (test code = 222570858) NOT DETECTED NOT DETECT [facility] gcpqu7151-65-66 01:25:00* Test Item Value Reference Range Interpretation Comments Respiratory Syncytial Virus (PCR) (test code = 228192890) NO T DETECTED NOT DETECT [facility] rubil1912-42-17 01:25:00* Test Item Value Reference Range Interpretation Comments Bordetella pertussis DNA (PCR) (test code = 813540123) NOT DETEC [place] NOT DETECT [facility] virus pcbek4021-94-89 01:25:00* Test Item Value Reference Range Interpretation Comments Parainfluenza Type 1 (PCR) (test code = 344620239) NOT DETECTED NOT DETECT [facility] virus ftasx5521-07-17 01:25:00* Test Item Value Reference Range Interpretation Comments Parainfluenza Type 2 (PCR) (test code = 241418412) NOT DETECTED NOT DETECT [facility] nergj3954-46-18 01:25:00* Test Item Value Reference Range Interpretation Comments Parainfluenza Type 3 (PCR) (test code = 044195212) NOT DETECTED NOT DETECT [facility] HospitalFlu[facility]oscopic procedure less than one hour azviocgj0409-50-14 01:25:00* Test Item Value Reference Range Interpretation Comments Parainfluenza Type 4 (PCR) (test code = Parainfluenza Type 4 (PCR)) NOT DETECTED NOT DETECT [facility] LancasterRespiratory virus lifch2021-59-36 01:25:00* Test Item Value Reference Range Interpretation Comments Rhinovirus (PCR) (test code = 982457391) NOT DETECTED NOT DETECT [facility] LancasterRespiratory virus vbtxx8490-68-58 01:25:00* Test Item Value Reference Range Interpretation Comments Human Metapneumovirus (PCR) (test code = 751919037) NOT DETECTED NO T DETECT [facility] LancasterRespiratory virus epdkb7596-86-39 01:25:00* Test Item Value Reference Range Interpretation Comments Adenovirus (PCR) (test code = 283880318) NOT DETECTED NOT DETECT [facility] LancasterFluoroscopic procedure less than one hour poeodcqu6927-18-24 01:25:00* Test Item Value Reference Range Interpretation [...] management decisions. This sample was tested at [facility] using the [employer] Respiratory Panel. It is FDA cleared and has been verified and approved by [facility] for clinical use on nasopharyngeal swa b specimens.ALL RESPIRATORY VIRAL PANEL Testing performed at [address] [id number] HAVE BEEN CALLED TO [facility] HospitalFluoroscopic procedure less than one hour awvficzc2087-39-58 01:25:00* Test Item Value Reference Range Interpretation Comments Coronavirus Type HKU1 (PCR) (test code = Coronavirus T ype HKU1 (PCR)) NOT DETECTED NOT DETECT [facility] LancasterFluoroscopic procedure less than one hour eghhmbjm1061-26-93 01:25:00* Test Item Value Reference Range Interpretation Comments Coronavirus Type NL63 (PCR) (test code = Coronavirus T ype NL63 (PCR)) NOT DETECTED NOT DETECT [facility] LancasterFluoroscopic procedure less than one hour vdvzyvgd3060-57-21 01:25:00* Test Item Value Reference Range Interpretation Comments Coronavirus Type OC43 (PCR) (test code = Coronavirus T ype OC43 (PCR)) NOT DETECTED NOT DETECT [facility] antigen detection in mdnsyw7721-71-86 01:25:00* Test Item Value Reference Range Interpretation Comments Group A Streptococcus Screen (test code = 04416-2) NEGATIVE NEG ATIVE [facility] LancasterBlood racoltr7525-53-86 01:25:00* Test Item Value Reference Range Interpretation Comments Blood Culture (test code = 57619365) NO GROWTH AFTER 5 DAYS, FINAL REPORT [facility] LancasterInfluenza virus A and B antigen identification by xuzyxucymuemxunddp5203-29-29 01:25:00* Test Item Value Reference Range Interpretation Comments Influenza Virus Types A,B Antigen (test code = 68835-0) NEGATIVE NEGATIVE [facility] LancasterFluoroscopic procedure less than one hour tsahljlt0123-23-16 01:25:00* Test Item Value Reference Range Interpretation Comments Chlamydia pneumoniae DNA (PCR) (test code = Chlamydia pneumoniae DNA (PCR)) NOT DETECTED NOT DETECT [facility] LancasterRespiratory virus qwwkm6615-78-93 01:25:00* Test Item Value Reference Range Interpretation Comments Influenza Type A (RT-PCR) (test code = 473384598) NOT DETECTED NOT DETECT [facility] LancasterFluoroscopic procedure less than one hour qfkkdeur1052-43-39 01:25:00* Test Item Value Reference Range Interpretation Comments Mycoplasma pneumoniae (PCR) (test code = Mycoplasma pn eumoniae (PCR)) NOT DETECTED NOT DETECT [facility] LancasterRespiratory virus dovyr3295-54-29 01:25:00* Test Item Value Reference Range Interpretation Comments Influenza Type B (RT-PCR) (test code = 003767412) NOT DETECTED NOT DETECT [facility] LancasterRespiratory virus ljgsq1585-30-01 01:25:00* Test Item Value Reference Range Interpretation Comments Respiratory Syncytial Virus (PCR) (test code = 245428063) NO T DETECTED NOT DETECT [facility] LancasterRespiratory virus aouwi0473-74-44 01:25:00* Test Item Value Reference Range Interpretation Comments Bordetella pertussis DNA (PCR) (test code = 276686039) NOT DETEC [place] NOT DETECT [facility] owwll6809-25-01 01:25:00* Test Item Value Reference Range Interpretation Comments Parainfluenza Type 1 (PCR) (test code = 712672025) NOT DETECTED NOT DETECT [facility] LancasterRespiratory virus sdxuu7652-24-88 01:25:00* Test Item Value Reference Range Interpretation Comments Parainfluenza Type 2 (PCR) (test code = 127387399) NOT DETECTED NOT DETECT [facility] qnshu4146-07-79 01:25:00* Test Item Value Reference Range Interpretation Comments Parainfluenza Type 3 (PCR) (test code = 983611053) NOT DETECTED NOT DETECT [facility] LancasterFluoroscopic procedure less than one hour agnaixpj5725-74-97 01:25:00* Test Item Value Reference Range Interpretation Comments Parainfluenza Type 4 (PCR) (test code = Parainfluenza Type 4 (PCR)) NOT DETECTED NOT DETECT [facility] LancasterRespiratory virus jzckg4196-53-85 01:25:00* Test Item Value Reference Range Interpretation Comments Rhinovirus (PCR) (test code = 563708115) NOT DETECTED NOT DETECT [facility] LancasterRespiratory virus cehbl6502-42-21 01:25:00* Test Item Value Reference Range Interpretation Comments Human Metapneumovirus (PCR) (test code = 717297585) NOT DETECTED NO T DETECT [facility] LancasterRespiratory virus fmgwt9735-94-46 01:25:00* Test Item Value Reference Range Interpretation Comments Adenovirus (PCR) (test code = 921934540) NOT DETECTED NOT DETECT [facility] LancasterFluoroscopic procedure less than one hour wtbuzeks2556-51-93 01:25:00* Test Item Value Reference Range Interpretation [...] management decisions. This sample was tested at [facility] using the [employer] Film[employer] ray Respiratory Panel. It is FDA cleared and has been verified and approved by [facility] for clinical use on nasopharyngeal swa b specimens.ALL RESPIRATORY VIRAL PANEL Testing performed at [facility] [place] [id number] [facility] BEEN [facility]ED [facility]Flu[facility] less than one hour kaeteynf1360-16-42 01:25:00* Test Item Value Reference Range Interpretation Comments Coronavirus Type HKU1 (PCR) (test code = Coronavirus T ype HKU1 (PCR)) NOT DETECTED NOT DETECT [facility] LancasterFluoroscopic procedure less than one hour ywzcqelc0106-84-45 01:25:00* Test Item Value Reference Range Interpretation Comments Coronavirus Type NL63 (PCR) (test code = Coronavirus T ype NL63 (PCR)) NOT DETECTED NOT DETECT [facility] LancasterFluoroscopic procedure less than one hour jekgbklf0411-43-30 01:25:00* Test Item Value Reference Range Interpretation Comments Coronavirus Type OC43 (PCR) (test code = Coronavirus T ype OC43 (PCR)) NOT DETECTED NOT DETECT [facility]ertreptococcus pyogenes antigen detection in wcmxzb8052-09-55 01:25:00* Test Item Value Reference Range Interpretation Comments Group A Streptococcus Screen (test code = 90729-1) NEGATIVE NEG ATIVE [facility] LancasterBlood ybasinv3433-83-98 01:25:00* Test Item Value Reference Range Interpretation Comments Blood Culture (test code = 11375469) NO GROWTH AFTER 5 DAYS, FINAL REPORT [facility] LancasterInfluenza virus A and B antigen identification by htivhmmziuqineoemw2433-81-01 01:25:00* Test Item Value Reference Range Interpretation Comments Influenza Virus Types A,B Antigen (test code = 46682-7) NEGATIVE NEGATIVE [facility]Flu[facility] less than one hour fasmrhro8753-71-74 01:25:00* Test Item Value Reference Range Interpretation Comments Chlamydia pneumoniae DNA (PCR) (test code = Chlamydia pneumoniae DNA (PCR)) NOT DETECTED NOT DETECT [facility] tqvcz4058-97-47 01:25:00* Test Item Value Reference Range Interpretation Comments Influenza Type A (RT-PCR) (test code = 612616733) NOT DETECTED NOT DETECT [facility] HospitalFlu[facility] procedure less than one hour unblevcw8064-09-23 01:25:00* Test Item Value Reference Range Interpretation Comments Mycoplasma pneumoniae (PCR) (test code = Mycoplasma pn eumoniae (PCR)) NOT DETECTED NOT DETECT [facility] ejrjs4255-88-07 01:25:00* Test Item Value Reference Range Interpretation Comments Influenza Type B (RT-PCR) (test code = 526618122) NOT DETECTED NOT DETECT [facility] mnovl0022-64-17 01:25:00* Test Item Value Reference Range Interpretation Comments Respiratory Syncytial Virus (PCR) (test code = 137905939) NO T DETECTED NOT DETECT [facility] gulnq9282-98-25 01:25:00* Test Item Value Reference Range Interpretation Comments Bordetella pertussis DNA (PCR) (test code = 727364692) NOT DETEC [place] NOT DETECT [facility]Res[facility] elfbu7484-67-57 01:25:00* Test Item Value Reference Range Interpretation Comments Parainfluenza Type 1 (PCR) (test code = 235682663) NOT DETECTED NOT DETECT [facility] loqmm2222-63-21 01:25:00* Test Item Value Reference Range Interpretation Comments Parainfluenza Type 2 (PCR) (test code = 611600829) NOT DETECTED NOT DETECT [facility] klrof9791-61-66 01:25:00* Test Item Value Reference Range Interpretation Comments Parainfluenza Type 3 (PCR) (test code = 198731545) NOT DETECTED NOT DETECT [facility] LancasterFluoroscopic procedure less than one hour uuqqsrna8525-68-70 01:25:00* Test Item Value Reference Range Interpretation Comments Parainfluenza Type 4 (PCR) (test code = Parainfluenza Type 4 (PCR)) NOT DETECTED NOT DETECT [facility] LancasterRespiratory virus jherg2636-55-69 01:25:00* Test Item Value Reference Range Interpretation Comments Rhinovirus (PCR) (test code = 689858925) NOT DETECTED NOT DETECT [facility] LancasterRespiratory virus wkgoi5895-91-39 01:25:00* Test Item Value Reference Range Interpretation Comments Human Metapneumovirus (PCR) (test code = 040903169) NOT DETECTED NO T DETECT [facility] LancasterRespiratory virus rddai6330-73-94 01:25:00* Test Item Value Reference Range Interpretation Comments Adenovirus (PCR) (test code = 539533245) NOT DETECTED NOT DETECT [facility] LancasterFluoroscopic procedure less than one hour nnqlwgmv6675-60-04 01:25:00* Test Item Value Reference Range Interpretation [...] management decisions. This sample was tested at [facility] using the [employer] Film[employer] ray Respiratory Panel. It is FDA cleared and has been verified and approved by [facility] for clinical use on nasopharyngeal swa b specimens.ALL RESPIRATORY VIRAL PANEL Testing performed at [address] [id number] HAVE BEEN [facility]UDDYC[facility]viewFluoroscopic procedure less than one hour ivtubfkc4480-47-95 01:25:00* Test Item Value Reference Range Interpretation Comments Coronavirus Type HKU1 (PCR) (test code = Coronavirus T ype HKU1 (PCR)) NOT DETECTED NOT DETECT [facility] LancasterFluoroscopic procedure less than one hour zztakavp7971-78-49 01:25:00* Test Item Value Reference Range Interpretation Comments Coronavirus Type NL63 (PCR) (test code = Coronavirus T ype NL63 (PCR)) NOT DETECTED NOT DETECT [facility] LancasterFluoroscopic procedure less than one hour uwegptcz3205-86-46 01:25:00* Test Item Value Reference Range Interpretation Comments Coronavirus Type OC43 (PCR) (test code = Coronavirus T ype OC43 (PCR)) NOT DETECTED NOT DETECT [facility]ertreptococcus pyogenes antigen detection in qhmqfj7718-03-06 01:25:00* Test Item Value Reference Range Interpretation Comments Group A Streptococcus Screen (test code = 97291-9) NEGATIVE NEG ATIVE [facility] LancasterInfluenza virus A and B antigen identification by rhhauqtipcmsictlpr7925-28-83 01:25:00* Test Item Value Reference Range Interpretation Comments Influenza Virus Types A,B Antigen (test code = 03649-9) NEGATIVE NEGATIVE [facility] LancasterFluoroscopic procedure less than one hour nueyvhhp1124-22-89 01:25:00* Test Item Value Reference Range Interpretation Comments Chlamydia pneumoniae DNA (PCR) (test code = Chlamydia pneumoniae DNA (PCR)) NOT DETECTED NOT DETECT [facility] LancasterRespiratory virus uenfk5814-85-22 01:25:00* Test Item Value Reference Range Interpretation Comments Influenza Type A (RT-PCR) (test code = 992136720) NOT DETECTED NOT DETECT [facility] LancasterFluoroscopic procedure less than one hour beoxlvwd6464-41-96 01:25:00* Test Item Value Reference Range Interpretation Comments Mycoplasma pneumoniae (PCR) (test code = Mycoplasma pn eumoniae (PCR)) NOT DETECTED NOT DETECT [facility] LancasterRespiratory virus yteoh8209-39-22 01:25:00* Test Item Value Reference Range Interpretation Comments Influenza Type B (RT-PCR) (test code = 355819512) NOT DETECTED NOT DETECT [facility] LancasterRespiratory virus bnjvt5722-78-96 01:25:00* Test Item Value Reference Range Interpretation Comments Respiratory Syncytial Virus (PCR) (test code = 966011032) NO T DETECTED NOT DETECT [facility] LancasterRespiratory virus kcrup9910-34-15 01:25:00* Test Item Value Reference Range Interpretation Comments Bordetella pertussis DNA (PCR) (test code = 512711735) NOT DETEC [place] NOT DETECT [facility] qeuci4627-11-18 01:25:00* Test Item Value Reference Range Interpretation Comments Parainfluenza Type 1 (PCR) (test code = 179785829) NOT DETECTED NOT DETECT [facility] LancasterRespiratory virus nlcbv2657-51-41 01:25:00* Test Item Value Reference Range Interpretation Comments Parainfluenza Type 2 (PCR) (test code = 585632595) NOT DETECTED NOT DETECT [facility] wlbqm0861-49-86 01:25:00* Test Item Value Reference Range Interpretation Comments Parainfluenza Type 3 (PCR) (test code = 473673219) NOT DETECTED NOT DETECT [facility] LancasterFluoroscopic procedure less than one hour ogmovbeu4546-07-31 01:25:00* Test Item Value Reference Range Interpretation Comments Parainfluenza Type 4 (PCR) (test code = Parainfluenza Type 4 (PCR)) NOT DETECTED NOT DETECT [facility] LancasterRespiratory virus xbuxq6077-61-47 01:25:00* Test Item Value Reference Range Interpretation Comments Rhinovirus (PCR) (test code = 418919836) NOT DETECTED NOT DETECT [facility] LancasterRespiratory virus emrav5090-60-88 01:25:00* Test Item Value Reference Range Interpretation Comments Human Metapneumovirus (PCR) (test code = 243924568) NOT DETECTED NO T DETECT [facility] LancasterRespiratory virus zwxwj9389-62-81 01:25:00* Test Item Value Reference Range Interpretation Comments Adenovirus (PCR) (test code = 127201092) NOT DETECTED NOT DETECT [facility] LancasterFluoroscopic procedure less than one hour lcyjrdey2043-32-95 01:25:00* Test Item Value Reference Range Interpretation [...] management decisions. This sample was tested at [facility] using the [employer] Film[employer] ray Respiratory Panel. It is FDA cleared and has been verified and approved by [facility] for clinical use on nasopharyngeal swa b specimens.ALL RESPIRATORY VIRAL PANEL Testing performed at [address] [id number] [facility] [id number] 01:25:00* Test Item Value Reference Range Interpretation Comments Coronavirus Type HKU1 (PCR) (test code = Coronavirus T ype HKU1 (PCR)) NOT DETECTED NOT DETECT [facility] [id number] 01:25:00* Test Item Value Reference Range Interpretation Comments Coronavirus Type NL63 (PCR) (test code = Coronavirus T ype NL63 (PCR)) NOT DETECTED NOT DETECT [facility] than one hour [id number] 01:25:00* Test Item Value Reference Range Interpretation Comments Coronavirus Type OC43 (PCR) (test code = Coronavirus T ype OC43 (PCR)) NOT DETECTED NOT [facility]ECT [facility] in [id number] 01:25:00* Test Item Value Reference Range Interpretation Comments Group A Streptococcus Screen (test code = 77699-3) NEGATIVE NEG ATIVE [facility]Influ[facility] virus A and B antigen identification by [id number] 01:25:00* Test Item Value Reference Range Interpretation Comments Influenza Virus Types A,B Antigen (test code = 74009-0) NEGATIVE NEGATIVE [facility] than one hour [id number] 01:25:00* Test Item Value Reference Range Interpretation Comments Chlamydia pneumoniae DNA (PCR) (test code = Chlamydia pneumoniae DNA (PCR)) NOT DETECTED NOT DETECT [facility] [id number] 01:25:00* Test Item Value Reference Range Interpretation Comments Influenza Type A (RT-PCR) (test code = 209205499) NOT DETECTED NOT DETECT [facility] one hour [id number] 01:25:00* Test Item Value Reference Range Interpretation Comments Mycoplasma pneumoniae (PCR) (test code = Mycoplasma pn eumoniae (PCR)) NOT DETECTED NOT DETECT [facility] [id number] 01:25:00* Test Item Value Reference Range Interpretation Comments Influenza Type B (RT-PCR) (test code = 305204078) NOT DETECTED NOT [facility]ECT [facility] [id number] 01:25:00* Test Item Value Reference Range Interpretation Comments Respiratory Syncytial Virus (PCR) (test code = 115974000) NO T DETECTED NOT DETECT [facility] [id number] 01:25:00* Test Item Value Reference Range Interpretation Comments Bordetella pertussis DNA (PCR) (test code = 725830943) NOT DETEC [facility]ECT [facility] [id number] 01:25:00* Test Item Value Reference Range Interpretation Comments Parainfluenza Type 1 (PCR) (test code = 797246715) NOT DETECTED [facility] DETECT [facility] [id number] 01:25:00* Test Item Value Reference Range Interpretation Comments Parainfluenza Type 2 (PCR) (test code = 541334892) NOT DETECTED NOT DETECT [facility] [id number] 01:25:00* Test Item Value Reference Range Interpretation Comments Parainfluenza Type 3 (PCR) (test code = 064818132) NOT DETECTED NOT DETECT [facility] less than one hour [id number] 01:25:00* Test Item Value Reference Range Interpretation Comments Parainfluenza Type 4 (PCR) (test code = Parainfluenza Type 4 (PCR)) NOT DETECTED NOT DETECT [facility] [id number] 01:25:00* Test Item Value Reference Range Interpretation Comments Rhinovirus (PCR) (test code = 266818824) NOT DETECTED NOT DETECT [facility] [id number] 01:25:00* Test Item Value Reference Range Interpretation Comments Human Metapneumovirus (PCR) (test code = 568598543) NOT DETECTED NO T DETECT [facility] [id number] 01:25:00* Test Item Value Reference Range Interpretation Comments Adenovirus (PCR) (test code = 315342547) NOT DETECTED NOT DETECT [facility]Flu[facility] less than one hour [id number] 01:25:00* Test Item Value Reference Range Interpretation [...] management decisions. This sample was tested at [facility] using the [employer] Respiratory Panel. It is FDA cleared and has been verified and approved by [facility] for clinical use on nasopharyngeal swa b specimens.ALL RESPIRATORY VIRAL PANEL Testing performed at [address] [id number] [facility] one hour [id number] 01:25:00* Test Item Value Reference Range Interpretation Comments Coronavirus Type HKU1 (PCR) (test code = Coronavirus T ype HKU1 (PCR)) NOT DETECTED NOT DETECT [facility] less than one hour [id number] 01:25:00* Test Item Value Reference Range Interpretation Comments Coronavirus Type NL63 (PCR) (test code = Coronavirus T ype NL63 (PCR)) NOT DETECTED NOT DETECT [facility] less than one hour [id number] 01:25:00* Test Item Value Reference Range Interpretation Comments Coronavirus Type OC43 (PCR) (test code = Coronavirus T ype OC43 (PCR)) NOT DETECTED NOT DETECT [facility] antigen detection in [id number] 01:25:00* Test Item Value Reference Range Interpretation Comments Group A Streptococcus Screen (test code = 68236-3) NEGATIVE NEG ATIVE [facility]
== END 2020-03-28 21:00 ==
LOC: ER 20:59
DX: Z43.1 Encounter for attention to gastrostomy (principal); Z87.820 Personal history of traumatic brain injury; Z91.5 Personal history of self-harm; E11.9 Type 2 diabetes mellitus without complications; F41.9 Anxiety disorder, unspecified; D64.9 Anemia, unspecified
CPT/HCPCS: 99283

== ENCOUNTER 2020-03-29 12:26 | Emergency (ER) | payer MEDICARE, OTHER ==
[~2020-03-29] VITALS: Ht 170.2 cm; Wt 52.2 kg
--- OUTSIDE RECORDS SUMMARY | 2020-03-29 12:40 | XMS REPORT | Continuity of Care Document ---
Author Author [facility] Organization [facility] Address [address] [place] [address] Phone Unavailable Care Team Providers Care Crna Name Role Phone MALLORY ROJAS, MD PATTON PCP Konstantin FROST Attphys Unavailable CASIE, T TOLENTINO Attphys Unavailable Maggy LAYNE Attphys Unavailable BETHEA, SOUHEIL Attphys Unavailable BETHEA, SOUHEIL Admphys Unavailable Payers Payer Name Policy Type Policy Number Effective Date Expiration Date Maggy Christine [employer] [id number] 2019 00:00:00 [facility] Medicare A & B [id number] 2014 00:00:00 [facility] TMHP [id number] 2020 00:00:00 [facility] Cdc Review Covid19 [id number] [facility] Christine Medicaid [id number] 2019 00:00:00 [facility] Problems Condition Name Condition Details Condition Category Status Onset Date Resolution Date Last Treatment Date Treating Clinician Comments Source Body temperature above normal Hyperthermia Problem Active [facility] Pneumonia Pneumonia Problem Active [facility] Sepsis Problem Active [facility] Hypoxemia Problem Active [facility] Transient hypotension Problem Active [facility] Encounter for percutaneous endoscopic gastrostomy Problem Active [facility] Encounter for care related to feeding tube Problem Active [facility] Allergies, Adverse Reactions, Alerts Allergy Name Allergy Type Status Severity Reaction(s) Onset Date Inacti ve Date Treating Clinician Comments Source No Known Allergies DA Active U 2020-02-03 00:00:00 [facility] No Known Allergies DA Active U 2020-01-20 00:00:00 [facility] No Known Allergies DA Active U 2019-10-26 00:00:00 [facility] No Known Allergies DA Active U 2019-10-09 00:00:00 [facility] No Known Drug Allergies DA Active U 2019-09-12 00:00:00 [facility] No Known Contrast Allergies DA Active U 2007-08-26 00:00: 00 [facility] No Known Drug Allergies DA Active U 2007-08-26 00:00:00 [facility] No Known Food Allergies DA Active U 2007-08-26 00:00:00 [facility] No Known Other Allergies DA Active U 2007-08-26 00:00:00 [facility] Social History Social Habit Start Date Stop Date Quantity Comments Source Sex Assigned At 1975 00:00:00 1975 00:00:00 Male [facility] Medications Ordered Medication Name Filled Medication Name Start Date Stop Da te Current Medication? Ordering Clinician Indication Dosage Frequency Signature (SIG) Comments Components Source Acetaminophen Acetaminophen Yes 650 Every 4 Hours as needed for Elevated Temperature [facility] Albuterol Sulfate Albuterol Sulfate Yes .0 83 Every 4 Hours as needed for Shortness Of Breath [facility] Albuterol Sulfate Albuterol Sulfate Yes 3 Ever y 8 Hours [facility] Baclofen Baclofen Yes 30 Every 8 Hours [facility] Carbamide Peroxide (Debrox) 15 Ml DROPS Carbamide Peroxide ( Debrox) 15 Ml DROPS Yes 5 Mon And Fri [facility] Clonazepam Clonazepam Yes 1 Every 8 Hours [facility] Folic Acid Folic Acid Yes 1 Bedtime [facility] Keppra Solution Keppra Solution Yes 1000 Twice A Day [facility] Ketoconazole (Nizoral A-D) 125 Ml SHAMPOO Ketoconazole (Nizoral A-D) 125 Ml SHAMPOO Yes 1 .thu [facility] Levalbuterol Hcl (Xopenex) 0.63 Mg/3 Ml VIAL.NEB Leval buterol Hcl (Xopenex) 0.63 Mg/3 Ml VIAL.NEB Yes 1 Every 8 Hours as needed for Shortness Of Breath [facility] Multivitamin With Minerals (Multiple Vitamin) 1 Each T ABLET Multivitamin With Minerals (Multiple Vitamin) 1 Each TABLET Yes 1 Daily [facility] Polyethylene Glycol 3350 Polyethylene Glycol 3350 Yes 17 Daily [facility] Potassium Bicarbonate/Cit Ac (Effer-K 20 Meq Tablet Ef f) 20 Meq TABLET.EFF Potassium Bicarbonate/Cit Ac (Effer-K 20 Meq Tablet Eff) 20 Meq TABLET.EFF Yes 20 Mon,Thu,Thu [facility] Scopolamine Scopolamine Yes 1 Every 72 Hours [facility] Sennosides (Senna Laxative) 8.6 Mg TABLET Sennosides ( Senna Laxative) 8.6 Mg TABLET Yes 1 Daily [facility] Thiamine Hcl (B-1) 100 Mg TABLET Thiamine Hcl (B-1) 100 Mg TABLET Yes 100 Daily [facility] Vital Signs Vital Name Observation Time Observation Value Comments Source Oxygen saturation by Pulse oximetry 2020-03-28 20:56:00 97 /min [facility] Weight 2020-03-28 20:56:00 135 [lb_av] [facility] BMI (Body Mass Index) 2020-03-28 20:56:00 23.2 kg/m2 [facility] Oxygen saturation by Pulse oximetry 2020-03-28 07:35:00 98 /min [facility] Weight 2020-03-28 07:35:00 135 [lb_av] [facility] BMI (Body Mass Index) 2020-03-28 07:35:00 23.2 kg/m2 [facility] Oxygen saturation by Pulse oximetry 2020-03-15 07:55:00 100 /min [facility] Weight 2020-03-15 07:55:00 120 [lb_av] [facility] BMI (Body Mass Index) 2020-03-15 07:55:00 18.8 kg/m2 [facility] Body Temperature 2020-03-10 09:40:00 98.1 [degF] [facility] Heart Rate 2020-03-10 09:40:00 86 /min [facility] Respiratory rate 2020-03-10 09:40:00 18 /min [facility] BP Systolic 2020-03-10 09:40:00 125 mm[Hg] [facility] BP Diastolic 2020-03-10 09:40:00 75 mm[Hg] [facility] Body Temperature 2020-02-02 19:06:00 97.5 [degF] [facility] Weight 2020-02-02 19:03:00 130 [lb_av] [facility] BMI (Body Mass Index) 2020-02-02 19:03:00 21.0 kg/m2 [facility] Weight 2020-01-24 08:56:00 130 [lb_av] [facility] BMI (Body Mass Index) 2020-01-24 08:56:00 21.0 kg/m2 [facility] Weight 2020-01-13 20:15:00 130 [lb_av] [facility] BMI (Body Mass Index) 2020-01-13 20:15:00 21.0 kg/m2 [facility] Weight 2019-12-02 11:40:00 130 [lb_av] [facility] BMI (Body Mass Index) 2019-12-02 11:40:00 21.0 kg/m2 [facility] Body Temperature 2019-10-13 11:06:00 98.0 [degF] [facility] Weight 2019-10-13 08:47:00 181 [lb_av] [facility] BMI (Body Mass Index) 2019-10-13 08:47:00 25.2 kg/m2 [facility] Procedures Procedure Date / Time Performed Performing Clinician Sour e [facility] 2020-03-15 [facility] 2020-03-11 00[facility]00:00 [facility] 2020-03-10 00:00:00 [facility] 2020-02-02 00:00:00 [facility] EMERGENCY DEPT VISIT 2020-02-02 00:00:00 [facility] 2020-01-24 00:00:00 [facility] 2020-01-13 00:00:00 [facility] 2019-10-13 00:00:00 [facility] Computed tomography of chest without contrast 2019-08-13 00: 00:00 KAY PHILIPPE [facility] Plan of Care Planned Activity Planned Date Details Comments Source Instructions GI Tube Care [facility] Encounters Start Date/Time End Date/Time Encounter Type Admission Type [facility] Care Department Encounter ID Source 2020-03-28 20:59:00 2020-03-28 21:00:00 Departed Emergency Room [facility] [id number] [facility] 2020-03-28 07:41:00 2020-03-28 08:00:00 Departed Emergency Room [facility] [id number] [facility] 2020-03-15 07:58:00 2020-03-15 08:05:00 Departed Emergency Room [facility] [id number] [facility] 2020-03-11 21:31:00 2020-03-11 21:40:00 Departed Emergency Room [facility] [id number] [facility] 2020-03-10 21:15:00 2020-03-10 21:35:00 Departed Emergency Room [facility] [id number] [facility] 2020-03-10 08:14:00 2020-03-10 09:47:00 [facility] [id number] [facility] 2020-02-02 19:45:00 2020-02-02 20:12:00 Departed Emergency Room [facility] [id number] [facility] 2020-01-24 09:51:00 2020-01-24 12:16:00 Departed Emergency Room 1 JOSE FROST [facility] [id number] [facility] 2020-01-13 21:11:00 2020-01-13 21:35:00 Departed Emergency Room [facility] [id number] [facility] 2019-12-02 13:00:00 2019-12-02 17:52:00 Departed Emergency Room 1 RAJAN JASON [facility] [id number] [facility] 2019-10-13 09:48:00 2019-10-13 12:48:00 Departed Emergency Room 1 GISELA LAYNE [facility] [id number] [facility] 2019-08-13 06:31:00 2019-08-15 15:30:00 Discharged Inpatient 1 ABDI BETHEA [facility] [id number] [facility] Results Test Description Test Time Test Comments Results Result Comments Source ABDOMEN-1VIEW (KUB) 2020-03-10 08:04[facility] 1975 Sex: [place] [address] Patient Name: VANESSA KHOURY MR #: [id number] : 1975 Age/Sex: 44/M Req #: [id number] Adm Physician: Ordered by: JOSE FROST MD Report #: [id number] Location: ER Room/Bed: Procedure: [id number] DX/ABDOMEN-1VIEW (KUB) Exam Date: 03/10/20 Exam Time: [...] to change in reagent. SPECIMEN COMMENTS: CODE [id number] 14:10:00* Test Item Value Reference Range Interpretation Comments PHOSPHORUS (test code = PHOS) 3.7 mg/dL 2.5-4.9 N SPECIMEN COMMENTS: CODE [id number] 14:10:00* Test Item Value Reference Range Interpretation Comments MAGNESIUM (test code = MAG) 2.5 mg/dL 1.8-2.4 H SPECIMEN COMMENTS: CODE [id number] 14:10:00* Test Item Value Reference Range Interpretation Comments CALCITONIN (test code = CALC) 4.5 pg/mL 0.0-8.4 Siemens Immulite 2000 Immunochemiluminometric assay (ICMA)Values obtained with different assay methods or kits cannotbe used interchangeably. Results cannot be interpreted asabsolute evidence of the presence or absence of malignantdisease.Performed At: [address] [id number] Sanjai MD Ph:[phone] SPECIMEN COMMENTS: CODE [id number] 12:47:00* Test Item Value Reference Range Interpretation Comments GLUBED (test code = GLUBED) 98 mg/dL 74-106 N Performed by certified solid waste facility operator at [facility] [id number] 08:39:00* Test Item Value Reference Range Interpretation Comments GLUBED (test code = GLUBED) 126 mg/dL 74-106 H Performed by certified solid waste facility operator at [facility] [id number] 20:50:00* Test Item Value Reference Range Interpretation Comments GLUBED (test code = GLUBED) 132 mg/dL 74-106 H Performed by certified solid waste facility operator at [facility] CBC W/AUTO [id number] 06:33:00* Test Item Value Reference Range Interpretation [...] = MDIFF) NO, ONLY SCAN NEEDED DIFFERENTIAL [id number] 06:33:00* Test Item Value Reference Range Interpretation Comments STAIN ACCEPTABILITY (test code = STN ACCEPTABLE) STAIN ACCEPTABLE POLYCHROMASIA (test code = POLC) 1+ HYPOCHROMIA (test code = HYPO) 1+ ANISOCYTOSIS (test code = ANISO) 1+ MORPHOLOGY COMMENT (test code = MOC) TEST NOT PERFORMED PLATELET ESTIMATE (test code = PLTEST) DECREASED PLATELET MORPHOLOGY (test code = PLTMORPH) NORMAL CBC W/AUTO [id number] 06:11:00* Test Item Value Reference Range Interpretation [...] = MDIFF) NO, ONLY SCAN NEEDED DIFFERENTIAL [id number] 06:11:00* Test Item Value Reference Range Interpretation Comments STAIN ACCEPTABILITY (test code = STN ACCEPTABLE) CABOT RINGS (test code = CAB) MORPHOLOGY COMMENT (test code = MOC) PLATELET ESTIMATE (test code = PLTEST) PLATELET MORPHOLOGY (test code = PLTMORPH) CBC W/AUTO [id number] 06:11:00* Test Item Value Reference Range Interpretation [...] = MDIFF) NO, ONLY SCAN NEEDED DIFFERENTIAL [id number] 06:11:00* Test Item Value Reference Range Interpretation Comments STAIN ACCEPTABILITY (test code = STN ACCEPTABLE) CABOT RINGS (test code = CAB) MORPHOLOGY COMMENT (test code = MOC) PLATELET ESTIMATE (test code = PLTEST) PLATELET MORPHOLOGY (test code = PLTMORPH) CBC W/AUTO [id number] 06:11:00* Test Item Value Reference Range Interpretation [...] = MDIFF) NO, ONLY SCAN NEEDED DIFFERENTIAL [id number] 06:11:00* Test Item Value Reference Range Interpretation Comments STAIN ACCEPTABILITY (test code = STN ACCEPTABLE) MORPHOLOGY COMMENT (test code = MOC) PLATELET ESTIMATE (test code = PLTEST) PLATELET MORPHOLOGY (test code = PLTMORPH) CBC W/AUTO [id number] 06:11:00* Test Item Value Reference Range Interpretation [...] = MDIFF) NO, ONLY SCAN NEEDED DIFFERENTIAL [id number] 06:11:00* Test Item Value Reference Range Interpretation Comments STAIN ACCEPTABILITY (test code = STN ACCEPTABLE) CABOT RINGS (test code = CAB) MORPHOLOGY COMMENT (test code = MOC) PLATELET ESTIMATE (test code = PLTEST) PLATELET MORPHOLOGY (test code = PLTMORPH) BASIC METABOLIC [id number] 06:08:00* Test Item Value Reference Range Interpretation [...] CA) 8.5 mg/dL 8.5-10.1 N BASIC METABOLIC [id number] 05:58:00* Test Item Value Reference Range Interpretation [...] code = CA) mg/dL 8.5-10.1 CBC W/AUTO [id number] 09:08:00* Test Item Value Reference Range Interpretation [...] = MDIFF) NO, ONLY SCAN NEEDED DIFFERENTIAL [id number] 09:08:00* Test Item Value Reference Range Interpretation Comments STAIN ACCEPTABILITY (test code = STN ACCEPTABLE) STAIN ACCEPTABLE POLYCHROMASIA (test code = POLC) 1+ ANISOCYTOSIS (test code = ANISO) 1+ PLATELET ESTIMATE (test code = PLTEST) DECREASED PLATELET MORPHOLOGY (test code = PLTMORPH) CLUMPING PRESENT BASIC METABOLIC [id number] 08:34:00* Test Item Value Reference Range Interpretation [...] CA) 8.6 mg/dL 8.5-10.1 N BASIC METABOLIC [id number] 08:32:00* Test Item Value Reference Range Interpretation [...] CA) 8.6 mg/dL 8.5-10.1 N CBC W/AUTO [id number] 08:25:00* Test Item Value Reference Range Interpretation [...] = MDIFF) NO, ONLY SCAN NEEDED DIFFERENTIAL [id number] 08:25:00* Test Item Value Reference Range Interpretation Comments STAIN ACCEPTABILITY (test code = STN ACCEPTABLE) CABOT RINGS (test code = CAB) MORPHOLOGY COMMENT (test code = MOC) PLATELET ESTIMATE (test code = PLTEST) PLATELET MORPHOLOGY (test code = PLTMORPH) CBC W/AUTO [id number] 08:25:00* Test Item Value Reference Range Interpretation [...] = MDIFF) NO, ONLY SCAN NEEDED DIFFERENTIAL [id number] 08:25:00* Test Item Value Reference Range Interpretation Comments STAIN ACCEPTABILITY (test code = STN ACCEPTABLE) MORPHOLOGY COMMENT (test code = MOC) PLATELET ESTIMATE (test code = PLTEST) PLATELET MORPHOLOGY (test code = PLTMORPH) CBC W/AUTO [id number] 08:24:00* Test Item Value Reference Range Interpretation [...] = MDIFF) NO, ONLY SCAN NEEDED DIFFERENTIAL [id number] 08:24:00* Test Item Value Reference Range Interpretation Comments STAIN ACCEPTABILITY (test code = STN ACCEPTABLE) CABOT RINGS (test code = CAB) MORPHOLOGY COMMENT (test code = MOC) PLATELET ESTIMATE (test code = PLTEST) PLATELET MORPHOLOGY (test code = PLTMORPH) CBC W/AUTO [id number] 08:24:00* Test Item Value Reference Range Interpretation [...] = MDIFF) NO, ONLY SCAN NEEDED DIFFERENTIAL [id number] 08:24:00* Test Item Value Reference Range Interpretation Comments STAIN ACCEPTABILITY (test code = STN ACCEPTABLE) CABOT RINGS (test code = CAB) MORPHOLOGY COMMENT (test code = MOC) PLATELET ESTIMATE (test code = PLTEST) PLATELET MORPHOLOGY (test code = PLTMORPH) LACTIC [id number] 17:46:00* Test Item Value Reference Range Interpretation Comments LACTIC ACID (test code = LACT) 1.7 mmol/L 0.4-1.9 N LACTIC [id number] 12:07:00* Test Item Value Reference Range Interpretation Comments LACTIC ACID (test code = LACT) 2.2 mmol/L 0.4-1.9 HH Results called to [id number] by [email or web address] 02/18/20 1207Critical results verified and read back by Nurse? YES SPECIMEN COMMENTS: CODE SEPSISLACTIC [id number] 10:37:00* Test Item Value Reference Range Interpretation Comments LACTIC ACID (test code = LACT) 2.3 mmol/L 0.4-1.9 HH Results called to [id number] by [email or web address] 02/18/20 1037Critical results verified and read back by Nurse? YES SPECIMEN COMMENTS: FOR CODE SEPSISCOMMENTS TO SEAL MIXER: TAKE BY 1047 COMPREHENSIVE METABOLIC [id number] 10:08:00* Test Item Value Reference Range Interpretation [...] to change in reagent. SPECIMEN COMMENTS: CODE [id number] 10:08:00* Test Item Value Reference Range Interpretation Comments PHOSPHORUS (test code = PHOS) 3.7 mg/dL 2.5-4.9 N SPECIMEN COMMENTS: CODE [id number] 10:08:00* Test Item Value Reference Range Interpretation Comments MAGNESIUM (test code = MAG) 2.5 mg/dL 1.8-2.4 H SPECIMEN COMMENTS: CODE [id number] 10:08:00* Test Item Value Reference Range Interpretation Comments CALCITONIN (test code = CALC) pgram/mL <11.6 SPECIMEN COMMENTS: CODE SEPSISCOMPREHENSIVE METABOLIC [id number] 09:53:00* Test Item Value Reference Range Interpretation [...] = ALKP) IUnit/L 45-117 SPECIMEN COMMENTS: CODE [id number] 09:53:00* Test Item Value Reference Range Interpretation Comments PHOSPHORUS (test code = PHOS) mg/dL 2.5-4.9 SPECIMEN COMMENTS: CODE [id number] 09:53:00* Test Item Value Reference Range Interpretation Comments MAGNESIUM (test code = MAG) mg/dL 1.8-2.4 SPECIMEN COMMENTS: CODE [id number] 09:53:00* Test Item Value Reference Range Interpretation Comments CALCITONIN (test code = CALC) pgram/mL <11.6 SPECIMEN COMMENTS: CODE SEPSIS- XR CHEST 1 [id number] 08:58:00 FAX: Abdi Abbott MD [phone] [place]: St: ADM Name: VANESSA ANDREA [facility] : [birth year] Age/S: 44/M [address] [facility] Unit #: [id number] Loc: V.40[address] [place] [address] Phys: Abdi Bethea MD Acct: [id number] Dis Date: Status: ADM IN PHONE #: [phone] Exam Date: 02/17/2020 08 FAX #: [phone] Reason: pna EXAMS: CPT CODE: [id number] XR CHEST 1 V [id number] REASON FOR EXAM: pna Exam Order Date: 02/17/2020 5:00 AM Ordering M.Pooja: Abdi Bethea MD PROCEDURE: - XR CHEST [...] in this area cannot be excluded. Location: [facility] at 0858 Reported and signed by: John Hart MD CC: Abdi Bethea MD Technologist: KINGSTON MARCUS JR RT(R) Trnscrd Date/Time/By: 02/17/20 20 (0858) : By: [email or web address] Orig Print D/T: S: 02/17/2020 (09) PAGE 1 Signed Report CBC W/AUTO [id number] 06:36:00* Test Item Value Reference Range Interpretation [...] (test code = MDIFF) NO BASIC METABOLIC [id number] 06:22:00* Test Item Value Reference Range Interpretation [...] CA) 9.7 mg/dL 8.5-10.1 N CBC W/AUTO [id number] 08:30:00* Test Item Value Reference Range Interpretation [...] = MDIFF) NO, ONLY SCAN NEEDED DIFFERENTIAL [id number] 08:30:00* Test Item Value Reference Range Interpretation Comments STAIN ACCEPTABILITY (test code = STN ACCEPTABLE) STAIN ACCEPTABLE POLYCHROMASIA (test code = POLC) 1+ ANISOCYTOSIS (test code = ANISO) 1+ PLATELET ESTIMATE (test code = PLTEST) DECREASED PLATELET MORPHOLOGY (test code = PLTMORPH) NORMAL BASIC METABOLIC [id number] 08:23:00* Test Item Value Reference Range Interpretation [...] CA) 9.5 mg/dL 8.5-10.1 N BASIC METABOLIC [id number] 08:22:00* Test Item Value Reference Range Interpretation [...] code = CA) mg/dL 8.5-10.1 CBC W/AUTO [id number] 08:05:00* Test Item Value Reference Range Interpretation [...] = MDIFF) NO, ONLY SCAN NEEDED DIFFERENTIAL [id number] 08:05:00* Test Item Value Reference Range Interpretation Comments STAIN ACCEPTABILITY (test code = STN ACCEPTABLE) CABOT RINGS (test code = CAB) MORPHOLOGY COMMENT (test code = MOC) PLATELET ESTIMATE (test code = PLTEST) PLATELET MORPHOLOGY (test code = PLTMORPH) CBC W/AUTO [id number] 08:05:00* Test Item Value Reference Range Interpretation [...] = MDIFF) NO, ONLY SCAN NEEDED DIFFERENTIAL [id number] 08:05:00* Test Item Value Reference Range Interpretation Comments STAIN ACCEPTABILITY (test code = STN ACCEPTABLE) MORPHOLOGY COMMENT (test code = MOC) PLATELET ESTIMATE (test code = PLTEST) PLATELET MORPHOLOGY (test code = PLTMORPH) CBC W/AUTO [id number] 08:04:00* Test Item Value Reference Range Interpretation [...] = MDIFF) NO, ONLY SCAN NEEDED DIFFERENTIAL [id number] 08:04:00* Test Item Value Reference Range Interpretation Comments STAIN ACCEPTABILITY (test code = STN ACCEPTABLE) CABOT RINGS (test code = CAB) MORPHOLOGY COMMENT (test code = MOC) PLATELET ESTIMATE (test code = PLTEST) PLATELET MORPHOLOGY (test code = PLTMORPH) CBC W/AUTO [id number] 08:04:00* Test Item Value Reference Range Interpretation [...] = MDIFF) NO, ONLY SCAN NEEDED DIFFERENTIAL [id number] 08:04:00* Test Item Value Reference Range Interpretation Comments STAIN ACCEPTABILITY (test code = STN ACCEPTABLE) CABOT RINGS (test code = CAB) MORPHOLOGY COMMENT (test code = MOC) PLATELET ESTIMATE (test code = PLTEST) PLATELET MORPHOLOGY (test code = PLTMORPH) [id number] 20:49:00* Test Item Value Reference Range Interpretation Comments GLUBED (test code = GLUBED) 92 mg/dL 74-106 N Performed by certified solid waste facility operator at [facility] Coronavirus 2019 [id number] 19:44:00* Test Item Value Reference Range Interpretation Comments Coronavirus 2019 Confirmation (test code = [id number]) Negative Negative Coronavirus 2019 [id number] 19:44:00* Test Item Value Reference Range Interpretation Comments Coronavirus 2019 Confirmation (test code = [id number]) Negative Negative LACTIC [id number] 04:04:00* Test Item Value Reference Range Interpretation Comments LACTIC ACID (test code = LACT) 1.3 mmol/L 0.4-1.9 N COVID 19 INHOUSE [id number] 23:13:00* Test Item Value Reference Range Interpretation Comments COVID 19 INHOUSE AG (test code = [id number]) NEGATIVE B-TYPE NATRIURETIC [id number] 22:04:00* Test Item Value Reference Range Interpretation Comments B-TYPE NATRIURETIC PEPTIDE (test code = BNP) 13.19 pgram/mL 0-100 N CBC W/MANUAL [id number] 21:56:00* Test Item Value Reference Range Interpretation [...] = IMMAT) 0 % 0-0 N URINALYSIS [id number] 21:54:00* Test Item Value Reference Range Interpretation [...] #/LPF FEW Urine Source? Clean CatchBASIC METABOLIC [id number] 21:48:00* Test Item Value Reference Range Interpretation [...] CA) 9.8 mg/dL 8.5-10.1 N HEPATIC FUNCTION [id number] 21:48:00* Test Item Value Reference Range Interpretation [...] reference range due to change in reagent. [id number] 21:48:00* Test Item Value Reference Range Interpretation Comments LIPASE (test code = LIP) 299 U/L 73.0-393.0 N [id number] 21:48:00* Test Item Value Reference Range Interpretation Comments TROPONIN-I (test code = TROPI) <0.015 ng/mL 0-0.045 N LACTIC [id number] 21:48:00* Test Item Value Reference Range Interpretation Comments LACTIC ACID (test code = LACT) 1.5 mmol/L 0.4-1.9 N BASIC METABOLIC [id number] 21:41:00* Test Item Value Reference Range Interpretation [...] code = CA) mg/dL 8.5-10.1 HEPATIC FUNCTION [id number] 21:41:00* Test Item Value Reference Range Interpretation [...] TOTAL (test code = ALKP) IUnit/L 45-117 [id number] 21:41:00* Test Item Value Reference Range Interpretation Comments LIPASE (test code = LIP) U/L 73.0-393.0 [id number] 21:41:00* Test Item Value Reference Range Interpretation Comments TROPONIN-I (test code = TROPI) ng/mL 0-0.045 PROTHROMBIN [id number] 21:39:00* Test Item Value Reference Range Interpretation [...] (2.5-3.5) IS PATIENT ON ANTICOAGULANTS? NTHROMBOPLASTIN TIME [id number] 21:39:00* Test Item Value Reference Range Interpretation Comments THROMBOPLASTIN TIME PARTIAL (test code = PTT) 44.9 seconds 23.0-37. 0 H IS PATIENT ON ANTICOAGULANTS? NCBC W/MANUAL [id number] 21:28:00* Test Item Value Reference Range Interpretation [...] MORPHOLOGY (test code = PLTMORPH) CBC W/MANUAL [id number] 21:28:00* Test Item Value Reference Range Interpretation [...] MORPHOLOGY (test code = PLTMORPH) CBC W/MANUAL [id number] 21:28:00* Test Item Value Reference Range Interpretation [...] MORPHOLOGY (test code = PLTMORPH) CBC W/MANUAL [id number] 21:28:00* Test Item Value Reference Range Interpretation [...] MORPHOLOGY (test code = PLTMORPH) CBC W/MANUAL [id number] 21:28:00* Test Item Value Reference Range Interpretation [...] code = PLTMORPH) - XR CHEST 1 [id number] 21:13:00 FAX: Narayan Kapoor DO [phone] [place]: St: REG Name: VANESSA ANDREA [facility] : [birth year] Age/S: 44/M [address] [facility] Unit #: [id number] Loc: [place] [address] Phys: Narayan Colbert DO Acct: [id number] Dis Date: Status: REG ER PHONE #: [phone] Exam Date: 02/14/20202058 FAX #: [phone] Reason: CODE SEPSIS EXAMS: CPT CODE: [id number] XR CHEST 1 V 18998 EXAM: Chest x-ray, one view; INFORMATION: Code [...] Trnscrd Date /Time/By: 02/14/2020 (2112) : By: MatthewW Orig Print D/T: S: 020 (2115) PAGE 1 Signed Report - CONT INJ GS/ DU/ JJ/ [id number] 22:01:00 FAX: Jose Jacinto MD [place]: St: REG Name: VANESSA ANDREA [facility] : [birth year] Age/S: 44/M [address] [facility] Unit #: [id number] Loc: [place] [address] Phys: Jose Jacinto MD Acct: [id number] Dis Date: Status: REG ER PHONE #: [phone] Exam Date: 02/03/20202156 FAX #: [phone] Reason: Feeding tube replacement EXAMS: CPT CODE: [id number] CONT INJ GS/ DU/ JJ/ G G 01259 REASON FOR EXAM: Feeding tube repl acement EXAM ORDER DATE: 02/03/2020 9:27 PM Attending M.Pooja: Jose Jacinto MD PROCEDURE: - CONT INJ GS/ DU/ JJ/ GG Location:[facility] COMPARISON: FINDINGS: 2 views of the a bdomen obtained at 9:40 PM. The director vaccine radiograph shows unremarkable small bowel. Gastrografin injected through the existing G-tube shows opacifica tion of the stomach and small bowel without evidence of extravasation IMPRESSION: No evidence of extravasation at 2200 Reported an d signed by: Hugo Sahu M.D. CC: Jose Jacinto MD Technologist: KARIN MALDONADO; ANGELES MCGHEE RT(R) Trnscrd Date/Time/By: 02/03/2020 (2200) : By: Rosio Orig Print D/T: S: 02/03/2020 (2203) PAGE 1 Signed Report - CONT INJ GS/ DU/ JJ/ [id number] 09:02:00 FAX: Marcelina Younger DO [place]: St: REG Name: VANESSA ANDREA [facility] : [birth year] Age/S: 44/M [address] [facility]: [id number] Loc: [place] [address] Phys: Marcelina Younger DO Acct: [id number] Dis Date: Status: REG ER PHONE #: [phone] Exam Date: 02/01/2020 0855 FAX #: [phone] Reason: peg tube replacement EXAMS: CPT CODE: [id number] CONT INJ GS/ DU/ JJ/ G G 49519 HISTORY: peg tube replacement TECHNIQUE: AP abdomen x-ray COMPARISON: Abdominal rad iograph earlier today at 12:31 AM FINDINGS/ IMPRESSION: Contrast administered through the percutaneous gastrostomy tub e opacifies the stomach lumen with no intraperitoneal extravasation of contrast to suggest leak. Remaining findings are unchan ged. Location: [facility] at 0902 Reported and signed by: Tatyana Hart MD CC: Marcelina Younger DO Technologist: Glenis Rodriguez RT(R); KINGTSON MARCUS JR RT(R) Trnscrd Date/Time/By: 02/01/2020 (901) : By: [email or web address] Orig [facility] D/T: S: 02/01/2020 (904) PAGE 1 Signed Report - CONT INJ GS/ DU/ JJ/ GG 2020-02-01 00:47:00 FAX: Lynn Cook [phone] [place]: B St: REG Name: VANESSA ANDREA [facility] : [birth year] Age/S: 44/M [address] Unit #: [id number] Loc: [place] [address] Phys: Lynn Arora Acct: [id number] Dis Date: Status: REG ER PHONE #: [phone] Exam Date: 02/01/2020 004 FAX #: [phone] Reason: G TUBE PLACMENT EXAMS: CPT CODE: [id number] CONT INJ GS/ RISSA/ JJ/ G G 82731 HISTORY: G-tube placement Lo cation: C3 FINDINGS: [...] 1 Signed Report - CONT INJ GS/ RISSA/ JJ/ [id number] 01:47:00 FAX: Marcelina Younger DO [place]: B St: REG Name: VANESSA ANDREA [facility] : [birth year] Age/S: 44/M [address] Unit #: [id number] Loc: [place] [address] Phys: Marcelina Younger DO Acct: [id number] Dis Date: Status: REG ER PHONE #: [phone] Exam Date: 01/25/2020 0140 FAX #: [phone] Reason: peg tube placement EXAMS: CPT CODE: [id number] CONT INJ GS/ DU/ JJ/ G G 82109 AFTER HOURS SERVICE AT: 01/25/2020 1:46 AM [...] By: [email or web address] Orig Print D/T: S: 0 (0150) PAGE 1 Signed Report ABDOMEN-1VIEW (LAWSON)2020-01-24 09:51:00 [place] [address] Patient Name: VANESSA KHOURY MR #: [id number] : 1975 Age/Sex: 44/M Req #: [id number] Adm Physician: Ordered by: JOSE FROST MD Report #: [id number] Location: ER Room/Bed: Procedure: [id number] DX/ABDOMEN-1VIEW (KUB) Exam Date: 01/24/20 Exam Time: 919 REPORT STATUS: Signed Abdomen, one view ( KUB) INDICATION: REPLACED G-TUBE [id number] Comparison: N one available. Discussion: Gastrografin was injected via the indwelling gastrostomy catheter prior to imaging. A director vaccine image was not obtained. G astrostomy tube [...] COPY TO: JOSE FROST MD BASIC METABOLIC [id number] 22:26:00* Test Item Value Reference Range Interpretation [...] CA) 10.2 mg/dL 8.5-10.1 H BASIC METABOLIC [id number] 22:24:00* Test Item Value Reference Range Interpretation [...] CA) 10.2 mg/dL 8.5-10.1 H CBC W/AUTO [id number] 22:18:00* Test Item Value Reference Range Interpretation [...] code = NRBC#) 0.00 K/mm3 0.0-0.1 N [id number] 00:53:00* Test Item Value Reference Range Interpretation Comments GLUBED (test code = GLUBED) 78 mg/dL 74-106 N Performed by certified solid waste facility operator at [facility] - CONT INJ GS/ DU/ JJ/ [id number] 23:55:00 FAX: Lisa Singh [phone] [place]: B St: REG Name: VANESSA ANDREA [facility] : [birth year] Age/S: 44/M [address] [facility] Unit #: [id number] Loc: [place] [address] Phys: Lisa An Acct: [id number] Dis Date: Status: REG ER PHONE #: [phone] Exam Date: 12/11/2019 2344 FAX #: [phone] Reason: PEG replacement EXAMS: CPT CODE: [id number] CONT INJ GS/ DU/ JJ/ G G 02528 DICTATION LOCATION: 8 HISTORY: Male, 44 years of age with PEG replacement EXAM: TWO VIEWS OF THE ABDOMEN COMPARISON: 11/24/2019 FIND INGS: 2 sequential frontal views of the abdomen are provided, the 1st imag e being a director vaccine and the 2nd image after contrast has been injected into th e patient's gastrostomy tube. Injected contrast resides in the s tomach lumen indicating that the gastrostomy tube is in satisfactory posit ion. No extravasation of contrast into peritoneal cavity. IMPRESSION: Gastrostomy tube is in satisfactory position. Electro nically Signed by Toya Casey MD on 12/11/2019 at 2282 Reported and signed by: Toya Casey MD CC: Sherice An MD Technologist: Luna Edmondson Trnscrd Date/Time/By: 12/11/2019 (2749) : By: Cielo Orig Print D/T: S: 12/11/2019 (0650) PAGE 1 Signed Report [id number] 23:24:00* Test Item Value Reference Range Interpretation Comments GLUBED (test code = GLUBED) 71 mg/dL 74-106 L Performed by certified solid waste facility operator at [facility] Fluoroscopic procedure less than one hour uwkofbjs3193-62-81 14:00:00* Test Item Value Reference Range Interpretation Comments Lactic Acid Level (test code = Lactic Acid Level) 1.7 mmol/L 0.5- 2.0 [facility] fezyjzb2023-56-41 14:00:00* Test Item Value Reference Range Interpretation Comments Blood Culture (test code = 74494389) NO GROWTH AFTER 5 DAYS, FINAL REPORT [facility] WestFluoroscopic procedure less than one hour hpbriqlw6023-93-16 14:00:00* Test Item Value Reference Range Interpretation Comments Lactic Acid Level (test code = Lactic Acid Level) 1.7 mmol/L 0.5- 2.0 [facility] znzkupb2690-45-95 14:00:00* Test Item Value Reference Range Interpretation Comments Blood Culture (test code = 63772495) NO GROWTH AFTER 5 DAYS, FINAL REPORT [facility]or[facility] procedure less than one hour nviwzmac0868-41-35 14:00:00* Test Item Value Reference Range Interpretation Comments Lactic Acid Level (test code = Lactic Acid Level) 1.7 mmol/L 0.5- 2.0 [facility] vhfplud6534-24-51 14:00:00* Test Item Value Reference Range Interpretation Comments Blood Culture (test code = 02638007) NO GROWTH AFTER 5 DAYS, FINAL REPORT [facility] WestFluoroscopic procedure less than one hour crdybshy7396-81-54 14:00:00* Test Item Value Reference Range Interpretation Comments Lactic Acid Level (test code = Lactic Acid Level) 1.7 mmol/L 0.5- 2.0 [facility] cuuwdvb8562-25-14 14:00:00* Test Item Value Reference Range Interpretation Comments Blood Culture (test code = 16928347) NO GROWTH AFTER 5 DAYS, FINAL REPORT [facility]or[facility] procedure less than one hour dfrkdell8639-44-87 14:00:00* Test Item Value Reference Range Interpretation Comments Lactic Acid Level (test code = Lactic Acid Level) 1.7 mmol/L 0.5- 2.0 [facility] jamtrry3948-25-21 14:00:00* Test Item Value Reference Range Interpretation Comments Blood Culture (test code = 37150299) NO GROWTH AFTER 5 DAYS, FINAL REPORT [facility]Fluor[facility] procedure less than one hour kcwbnidu5968-55-74 14:00:00* Test Item Value Reference Range Interpretation Comments Lactic Acid Level (test code = Lactic Acid Level) 1.7 mmol/L 0.5- 2.0 [facility] nnpnagu9783-69-06 14:00:00* Test Item Value Reference Range Interpretation Comments Blood Culture (test code = 82773671) NO GROWTH AFTER 5 DAYS, FINAL REPORT [facility]LE (PORT[facility])2019-12-02 13:50:00 [place] [address] Patient Name: VANESSA KHOURY MR #: [id number] : 1975 Age/Sex: 44/M Req #: [id number] Adm Physician: Ordered by: RAJAN JASON MD Report #: [id number] Location: ER Room/Bed: Procedure: [id number] DX/CHEST SINGLE ( PORTABLE) Exam Date: 12/02/19 [...] 1:52 PM Dictated By: CHRIS ALLISON MD 1353 Transcribed By: SARAH on 12/02/19 135 COPY TO: RAJAN JASON MD Bacterial urine drcbcgz0973-37-91 13:42:00 * Test Item Value Reference Range Interpretation Comments Urine Culture (test code = 630-4) ENTEROCOCCUS FAECALIS [facility] urine elqkpvc1412-12-53 13:42:00* Test Item Value Reference Range Interpretation Comments Urine Culture (test code = 630-4) ENTEROCOCCUS FAECALIS [facility] WestBatneria urine hvqitec5998-39-45 13:42:00* Test Item Value Reference Range Interpretation Comments Urine Culture (test code = 630-4) ENTEROCOCCUS FAECALIS [facility] urine aujujge8715-22-45 13:42:00* Test Item Value Reference Range Interpretation Comments Urine Culture (test code = 630-4) ENTEROCOCCUS FAECALIS [facility] urine kpiyajn5042-50-06 13:42:00* Test Item Value Reference Range Interpretation Comments Urine Culture (test code = 630-4) ENTEROCOCCUS FAECALIS [facility] urine bitkkza8449-12-60 13:42:00* Test Item Value Reference Range Interpretation Comments Urine Culture (test code = 630-4) ENTEROCOCCUS FAECALIS [facility] leukocytes automated count (number/volume)2019-12-02 13:40:00* Test Item Value Reference Range Interpretation Comments White Blood Count (test code = 6690-2) 5.19 10*3/uL 4.8-10.8 [facility] erythrocytes automated count (number/volume)2019-12-02 13:40:00* Test Item Value Reference Range Interpretation Comments Red Blood Count (test code = 789-8) 4.39 10*6/mL 4.3-5.7 [facility] (moles/volume)2019-12-02 13:40:00* Test Item Value Reference Range Interpretation Comments Hemoglobin (test code = 36617-5) 12.6 g/dL 14.0-18.0 [facility] blood hematocrit (volume fraction)2019-12-02 13:40:00* Test Item Value Reference Range Interpretation Comments Hematocrit (test code = 4544-3) 43.1 % 38.2-49.6 [facility] erythrocyte mean corpuscular fvlsxp2280-11-35 13:40:00* Test Item Value Reference Range Interpretation Comments Mean Corpuscular Volume (test code = 787-2) 98.2 81-99 [facility] erythrocyte mean corpuscular hemoglobin (mass per erythrocyte)2019-12-02 13:40:00* Test Item Value Reference Range Interpretation Comments Mean Corpuscular Hemoglobin (test code = 785-6) 28.7 pg 28-32 [facility] erythrocyte mean corpuscular hemoglobin concentration measurement (mass/volume)2019-12-02 13:40:00* Test Item Value Reference Range Interpretation Comments Mean Corpuscular Hemoglobin Concent (test code = 786-4) 29.2 g/dL 31-35 [facility] WestRDW UriJi-Nmv5084-41-24 13:40:00* Test Item Value Reference Range Interpretation Comments Red Cell Distribution Width (test code = 84768-5) 13.4 % 11.7 -14.4 [facility] blood platelet count (count/volume)2019-12-02 13:40:00* Test Item Value Reference Range Interpretation Comments Platelet Count (test code = 777-3) 69 10*3/uL 140-360 [facility]Autom[facility] blood segmented neutrophil count as percentage of total suqhdgjrkz0678-99-57 13:40:00* Test Item Value Reference Range Interpretation Comments Neutrophils (%) (Auto) (test code = 39761-9) 61.1 % 38.7-80.0 [facility]Autom[facility] blood lymphocyte count as percentage ot total wiruhgoajo5430-26-57 13:40:00* Test Item Value Reference Range Interpretation Comments Lymphocytes (%) (Auto) (test code = 736-9) 28.7 % 18.0-39.1 [facility] blood monocyte count as percentage of total jkqopdiqky6697-88-15 13:40:00* Test Item Value Reference Range Interpretation Comments Monocytes (%) (Auto) (test code = 5905-5) 9.4 % 4.4-11.3 [facility] blood eosinophil count as percentage of total ifjjgydczo2967-61-39 13:40:00* Test Item Value Reference Range Interpretation Comments Eosinophils (%) (Auto) (test code = 713-8) 0.2 % 0.0-6.0 [facility] blood basophil count as percentage of total fbxkztizjc6761-86-58 13:40:00* Test Item Value Reference Range Interpretation Comments Basophils (%) (Auto) (test code = 706-2) 0.2 % 0.0-1.0 [facility] WestFluoroscopic procedure less than one hour kewmerxr3871-74-06 13:40:00* Test Item Value Reference Range Interpretation Comments IM GRANULOCYTES % (test code = IM GRANULOCYTES %) 0.4 % 0.0- 1.0 [facility] blood neutrophil count 2019-12-02 13:40:00* Test Item Value Reference Range Interpretation Comments Neutrophils # (Auto) (test code = 751-8) 3.2 2.1-6.9 [facility] lymphocytes count (number/volume) 2019-12-02 13:40:00* Test Item Value Reference Range Interpretation Comments Lymphocytes # (Auto) (test code = 73525-4) 1.5 1.0-3.2 [facility] monocytes automated count (number/volume)2019-12-02 13:40:00* Test Item Value Reference Range Interpretation Comments Monocytes # (Auto) (test code = 742-7) 0.5 0.2-0.8 [facility] blood eosinophil count 2019-12-02 13:40:00* Test Item Value Reference Range Interpretation Comments Eosinophils # (Auto) (test code = 711-2) 0.0 0.0-0.4 [facility] WestAutom[facility] blood basophil count (count/volume)2019-12-02 13:40:00* Test Item Value Reference Range Interpretation Comments Basophils # (Auto) (test code = 704-7) 0.0 0.0-0.1 [facility] WestFluoroscopic procedure less than one hour qiyppffk8021-15-66 13:40:00* Test Item Value Reference Range Interpretation Comments Absolute Immature Granulocyte (auto (mabel t code = Absolute Immature Granulocyte (auto) 0.02 10*3/uL 0-0.1 [facility] WestProthrombin time (PT) in platelet poor plasma by coagulation etgsn9666-11-50 13:40:00* Test Item Value Reference Range Interpretation Comments Prothrombin Time (test code = 5902-2) 13.9 s 11.9-14.5 [facility] WestINR in Platelet poor plasma by Coagulation clhgl6422-51-71 13:40:00* Test Item Value Reference Range Interpretation Comments Prothromb Time International Ratio (test code = 6301-6) 1.02 Oral Anticoagulant Therapy INR Values:1. Low Intensity Therapy 1.5 - 2.02 . Moderate Intensity Therapy 2.0 - 3.03. High Intensity Therapy(1) 2.5 - 3. 54. High Intensity Therapy(2) 3.0 - 4.05. Panic Value INR > 5.0 [facility] WestActivated partial thromboplastin time (aPTT) in platelet poor plasma by coagulation bcucx9302-04-66 13:40:00* Test Item Value Reference Range Interpretation Comments Activated Partial Thromboplast Time (test code = 89983-5) 33.3 s 23.8-35.5 [facility] WestUrine color mxkwtiwbnwizu3997-92-10 13:40:00* Test Item Value Reference Range Interpretation Comments Urine Color (test code = 5778-6) STRAW YELLOW [facility] WestUrine emvgnia6254-27-58 13:40:00* Test Item Value Reference Range Interpretation Comments Urine Clarity (test code = 45876-8) SL CLOUDY CLEAR [facility] Urine by Test strip 2019-12-02 13:40:00* Test Item Value Reference Range Interpretation Comments Urine Specific [place] (test code = 5811-5) 1.020 1.010-1.02 5 [facility] WestU[facility] pH measurement by automated test xgzfb0079-02-81 13:40:00* Test Item Value Reference Range Interpretation Comments Urine pH (test code = 70644-7) 5.5 5-7 [facility] WestU[facility] leukocyte esterase detection by mqurcxqc2316-06-77 13:40:00* Test Item Value Reference Range Interpretation Comments Urine Leukocyte Esterase (test code = 5799-2) NEGATIVE NEGATIVE [facility] WestUrine nitrite ckpgbrltn3672-98-60 13:40:00* Test Item Value Reference Range Interpretation Comments Urine Nitrite (test code = 44517-1) NEGATIVE NEGATIVE [facility] WestU[facility] protein measurement by test strip (mass/volume)2019-12-02 13:40:00* Test Item Value Reference Range Interpretation Comments Urine Protein (test code = 5804-0) 2+ NEGATIVE [facility] WestUrine glucose idstletpf6576-98-32 13:40:00* Test Item Value Reference Range Interpretation Comments Urine Glucose (UA) (test code = 2349-9) NEGATIVE NEGATIVE [facility] WestUrine ketones detection by automated test zjlfm0621-16-59 13:40:00* Test Item Value Reference Range Interpretation Comments Urine Ketones (test code = 98140-0) NEGATIVE NEGATIVE [facility] WestUrine urobilinogen measurement by test strip (mass/volume)2019-12-02 13:40:00* Test Item Value Reference Range Interpretation Comments Urine Urobilinogen (test code = 49457-7) 1 mg/dL 0.2-1 [facility] WestU[facility] total bilirubin measurement (mass/volume)2019-12-02 13:40:00* Test Item Value Reference Range Interpretation Comments Urine Bilirubin (test code = 1978-6) NEGATIVE NEGATIVE [facility] WestUrine erythrocytes czgaqyvly3214-20-03 13:40:00* Test Item Value Reference Range Interpretation Comments Urine Blood (test code = 39215-9) MODERATE NEGATIVE [facility] WestAutomated urine sediment leukocyte count by microscopy (number/high power field)2019-12-02 13:40:00* Test Item Value Reference Range Interpretation Comments Urine WBC (test code = 5821-4) NONE /[HPF] 0-5 [facility] WestErythrocytes detection in urine sediment by light hpneyzxgws8010-35-44 13:40:00* Test Item Value Reference Range Interpretation Comments Urine RBC (test code = 18220-3) 6-10 /[HPF] 0-5 [facility] WestBacteria detection in urine sediment by light cvykoisqiw3704-16-19 13:40:00* Test Item Value Reference Range Interpretation Comments Urine Bacteria (test code = 23459-7) MODERATE /[HPF] NONE [facility] WestEpithelial cells detection in urine sediment by light otulpjwzso4173-62-18 13:40:00* Test Item Value Reference Range Interpretation Comments Urine Epithelial Cells (test code = 45660-4) FEW /[LPF] NONE [facility] Hospitalerum or plasma sodium measurement (moles/volume)2019-12-02 13:40:00* Test Item Value Reference Range Interpretation Comments Sodium Level (test code = 2951-2) 160 mmol/L 136-145 [facility] Hospitalerum or plasma potassium measurement (moles/volume)2019-12-02 13:40:00* Test Item Value Reference Range Interpretation Comments Potassium Level (test code = 2823-3) 4.6 mmol/L 3.5-5.1 [facility] Hospitalerum or plasma chloride measurement (moles/volume)2019-12-02 13:40:00* Test Item Value Reference Range Interpretation Comments Chloride Level (test code = 2075-0) 121 mmol/L 98-107 [facility] Hospitalerum or plasma carbon dioxide, total measurement (moles/volume)2019-12-02 13:40:00* Test Item Value Reference Range Interpretation Comments Carbon Dioxide Level (test code = 2028-9) 29 mmol/L 22-29 [facility] Hospitalerum or plasma anion efl9518-10-98 13:40:00* Test Item Value Reference Range Interpretation Comments Anion Gap (test code = 16550-0) 14.6 mmol/L 8-16 [facility] Hospitalerum or plasma urea nitrogen measurement (mass/volume)2019-12-02 13:40:00* Test Item Value Reference Range Interpretation Comments Blood Urea Nitrogen (test code = 3094-0) 34 mg/dL 7-26 [facility] Hospitalerum or plasma creatinine measurement (mass/volume)2019-12-02 13:40:00* Test Item Value Reference Range Interpretation Comments Creatinine (test code = 2160-0) 0.70 mg/dL 0.72-1.25 [facility] Hospitalerum or plasma urea nitrogen/creatinine mass yyvjh6326-69-28 13:40:00* Test Item Value Reference Range Interpretation Comments BUN/Creatinine Ratio (test code = 3097-3) 49 6-25 [facility] WestEstimated glomerular filtration rate (GFR) hdiokxhkmvowk9969-31-97 13:40:00* Test Item Value Reference Range Interpretation Comments Estimat Glomerular Filtration Rate (test code = 635187697) > 60 mL/ min >60 Ranges were taken from the National Kidney Disease Education Program and the [facility] literature.Reference ranges:60 or greater: Ruutmq71-67 ( for 3 consecutive months): Chronic kidney disease 15 or less: Kidney failureHCA Houston Healthcare WestGlucose ppncqwgokqk5082-07-98 13:40:00* Test Item Value Reference Range Interpretation Comments Glucose Level (test code = MFL4424) 104 mg/dL 74-118 [facility] Hospitalerum or plasma calcium measurement (mass/volume)2019-12-02 13:40:00* Test Item Value Reference Range Interpretation Comments Calcium Level (test code = 36034-4) 8.6 mg/dL 8.4-10.2 [facility] Hospitalerum or plasma total bilirubin measurement (mass/volume)2019-12-02 13:40:00* Test Item Value Reference Range Interpretation Comments Total Bilirubin (test code = 1975-2) 0.4 mg/dL 0.2-1.2 [facility] WestFluoroscopic procedure less than one hour gckwhsyq2134-36-96 13:40:00* Test Item Value Reference Range Interpretation Comments Aspartate Amino Transf (AST/SGOT) (test code = Aspartate Amino Transf (AST/SGOT)) 61 [IU]/L 5-34 [facility] alanine aminotransferase measurement (enzymatic activity/volume)2019-12-02 13:40:00* Test Item Value Reference Range Interpretation Comments Alanine Aminotransferase (ALT/SGPT) (test code = 1742-6) 67 [IU]/L 0-55 [facility]er[facility] protein measurement (mass/volume)2019-12-02 13:40:00* Test Item Value Reference Range Interpretation Comments Total Protein (test code = 2885-2) 7.9 g/dL 6.5-8.1 [facility]er[facility] plasma albumin measurement (mass/volume)2019-12-02 13:40:00* Test Item Value Reference Range Interpretation Comments Albumin (test code = 1751-7) 2.9 g/dL 3.5-5.0 [facility] WestPlasma globulin measurement (mass/volume) 2019-12-02 13:40:00* Test Item Value Reference Range Interpretation Comments Globulin (test code = 10185-1) 5.0 g/dL 2.3-3.5 [facility]er[facility] albumin/globulin mass [id number] 13:40:00* Test Item Value Reference Range Interpretation Comments Albumin/Globulin Ratio (test code = 1759-0) 0.6 0.8-2.0 [facility]er[facility] alkaline phosphatase measurement (enzymatic activity/volume)2019-12-02 13:40:00* Test Item Value Reference Range Interpretation Comments Alkaline Phosphatase (test code = 6768-6) 117 [IU]/L 40-150 [facility]er[facility] plasma creatine kinase measurement (enzymatic activity/volume)2019-12-02 13:40:00* Test Item Value Reference Range Interpretation Comments Creatine Kinase (test code = 2157-6) 47 [IU]/L 30-200 [facility]er[facility] or plasma creatine kinase MB measurement (mass/volume)2019-12-02 13:40:00* Test Item Value Reference Range Interpretation Comments Creatine Kinase MB (test code = 33044-3) 0.60 ng/mL 0-5.0 [facility] WestTroponin I measurement by highly sensitive enzyme dkgfwztoytv4118-00-50 13:40:00* Test Item Value Reference Range Interpretation Comments Troponin I (test code = 63131-5) 0.002 ng/mL 0-0.300 [facility] WestBlood leukocytes automated count (number/volume)2019-12-02 13:40:00* Test Item Value Reference Range Interpretation Comments White Blood Count (test code = 6690-2) 5.19 10*3/uL 4.8-10.8 [facility] WestBlood erythrocytes automated count (number/volume)2019-12-02 13:40:00* Test Item Value Reference Range Interpretation Comments Red Blood Count (test code = 789-8) 4.39 10*6/mL 4.3-5.7 [facility] WestBlood hemoglobin measurement (moles/volume)2019-12-02 13:40:00* Test Item Value Reference Range Interpretation Comments Hemoglobin (test code = 20435-3) 12.6 g/dL 14.0-18.0 [facility] WestAutomated blood hematocrit (volume fraction)2019-12-02 13:40:00* Test Item Value Reference Range Interpretation Comments Hematocrit (test code = 4544-3) 43.1 % 38.2-49.6 [facility] WestAutomated erythrocyte mean corpuscular nbnepb2352-42-05 13:40:00* Test Item Value Reference Range Interpretation Comments Mean Corpuscular Volume (test code = 787-2) 98.2 81-99 [facility] WestAutomated erythrocyte mean corpuscular hemoglobin (mass per erythrocyte)2019-12-02 13:40:00* Test Item Value Reference Range Interpretation Comments Mean Corpuscular Hemoglobin (test code = 785-6) 28.7 pg 28-32 [facility] WestAutomated erythrocyte mean corpuscular hemoglobin concentration measurement (mass/volume)2019-12-02 13:40:00* Test Item Value Reference Range Interpretation Comments Mean Corpuscular Hemoglobin Concent (test code = 786-4) 29.2 g/dL 31-35 [facility] WestRDW XfpPd-Jyf9093-61-24 13:40:00* Test Item Value Reference Range Interpretation Comments Red Cell Distribution Width (test code = 61150-3) 13.4 % 11.7 -14.4 [facility] WestAutomated blood platelet count (count/volume)2019-12-02 13:40:00* Test Item Value Reference Range Interpretation Comments Platelet Count (test code = 777-3) 69 10*3/uL 140-360 [facility] WestAutomated blood segmented neutrophil count as percentage of total ysddgjqjlw5726-62-49 13:40:00* Test Item Value Reference Range Interpretation Comments Neutrophils (%) (Auto) (test code = 15347-5) 61.1 % 38.7-80.0 [facility] WestAutomated blood lymphocyte count as percentage ot total ibkjnardyh1163-43-50 13:40:00* Test Item Value Reference Range Interpretation Comments Lymphocytes (%) (Auto) (test code = 736-9) 28.7 % 18.0-39.1 [facility] WestAutomated blood monocyte count as percentage of total dvemghcupr1694-84-28 13:40:00* Test Item Value Reference Range Interpretation Comments Monocytes (%) (Auto) (test code = 5905-5) 9.4 % 4.4-11.3 [facility] WestAutomated blood eosinophil count as percentage of total cqdmcecydy0112-05-60 13:40:00* Test Item Value Reference Range Interpretation Comments Eosinophils (%) (Auto) (test code = 713-8) 0.2 % 0.0-6.0 [facility] WestAutomated blood basophil count as percentage of total pxuipqfojz5428-01-88 13:40:00* Test Item Value Reference Range Interpretation Comments Basophils (%) (Auto) (test code = 706-2) 0.2 % 0.0-1.0 [facility] WestFluoroscopic procedure less than one hour wjnqzgtd0768-39-29 13:40:00* Test Item Value Reference Range Interpretation Comments IM GRANULOCYTES % (test code = IM GRANULOCYTES %) 0.4 % 0.0- 1.0 [facility] WestAutomated blood neutrophil count 2019-12-02 13:40:00* Test Item Value Reference Range Interpretation Comments Neutrophils # (Auto) (test code = 751-8) 3.2 2.1-6.9 [facility] WestBlood lymphocytes count (number/volume) 2019-12-02 13:40:00* Test Item Value Reference Range Interpretation Comments Lymphocytes # (Auto) (test code = 90998-6) 1.5 1.0-3.2 [facility] WestBlood monocytes automated count (number/volume)2019-12-02 13:40:00* Test Item Value Reference Range Interpretation Comments Monocytes # (Auto) (test code = 742-7) 0.5 0.2-0.8 [facility] WestAutomated blood eosinophil count 2019-12-02 13:40:00* Test Item Value Reference Range Interpretation Comments Eosinophils # (Auto) (test code = 711-2) 0.0 0.0-0.4 [facility] WestAutomated blood basophil count (count/volume)2019-12-02 13:40:00* Test Item Value Reference Range Interpretation Comments Basophils # (Auto) (test code = 704-7) 0.0 0.0-0.1 [facility] WestFluoroscopic procedure less than one hour nnowziqf2998-26-82 13:40:00* Test Item Value Reference Range Interpretation Comments Absolute Immature Granulocyte (auto (mabel t code = Absolute Immature Granulocyte (auto) 0.02 10*3/uL 0-0.1 [facility] WestProthrombin time (PT) in platelet poor plasma by coagulation qkczu0418-59-43 13:40:00* Test Item Value Reference Range Interpretation Comments Prothrombin Time (test code = 5902-2) 13.9 s 11.9-14.5 [facility] WestINR in Platelet poor plasma by Coagulation tlhcg5706-62-60 13:40:00* Test Item Value Reference Range Interpretation Comments Prothromb Time International Ratio (test code = 6301-6) 1.02 Oral Anticoagulant Therapy INR Values:1. Low Intensity Therapy 1.5 - 2.02 . Moderate Intensity Therapy 2.0 - 3.03. High Intensity Therapy(1) 2.5 - 3. 54. High Intensity Therapy(2) 3.0 - 4.05. Panic Value INR > 5.0 [facility] WestActivated partial thromboplastin time (aPTT) in platelet poor plasma by coagulation ncwir0213-94-47 13:40:00* Test Item Value Reference Range Interpretation Comments Activated Partial Thromboplast Time (test code = 28936-2) 33.3 s 23.8-35.5 [facility] WestUrine color xsldnyhsvlmft0447-30-79 13:40:00* Test Item Value Reference Range Interpretation Comments Urine Color (test code = 5778-6) STRAW YELLOW [facility] WestUrine lteozhb1642-79-87 13:40:00* Test Item Value Reference Range Interpretation Comments Urine Clarity (test code = 98946-7) SL CLOUDY CLEAR [facility] Hospitalpecific gravity of Urine by Test strip 2019-12-02 13:40:00* Test Item Value Reference Range Interpretation Comments Urine Specific [place] (test code = 5811-5) 1.020 1.010-1.02 5 [facility] WestUrine pH measurement by automated test gzmye2448-02-92 13:40:00* Test Item Value Reference Range Interpretation Comments Urine pH (test code = 54847-2) 5.5 5-7 [facility] WestUrine leukocyte esterase detection by jyrksshm0760-60-76 13:40:00* Test Item Value Reference Range Interpretation Comments Urine Leukocyte Esterase (test code = 5799-2) NEGATIVE NEGATIVE [facility] WestUrine nitrite idpwrapuc5767-62-86 13:40:00* Test Item Value Reference Range Interpretation Comments Urine Nitrite (test code = 96578-5) NEGATIVE NEGATIVE [facility] WestUrine protein measurement by test strip (mass/volume)2019-12-02 13:40:00* Test Item Value Reference Range Interpretation Comments Urine Protein (test code = 5804-0) 2+ NEGATIVE [facility] WestUrine glucose fynwpixpz3609-81-09 13:40:00* Test Item Value Reference Range Interpretation Comments Urine Glucose (UA) (test code = 2349-9) NEGATIVE NEGATIVE [facility] WestUrine ketones detection by automated test pdvqv2247-39-59 13:40:00* Test Item Value Reference Range Interpretation Comments Urine Ketones (test code = 93729-5) NEGATIVE NEGATIVE [facility] WestUrine urobilinogen measurement by test strip (mass/volume)2019-12-02 13:40:00* Test Item Value Reference Range Interpretation Comments Urine Urobilinogen (test code = 70997-8) 1 mg/dL 0.2-1 [facility] WestUrine total bilirubin measurement (mass/volume)2019-12-02 13:40:00* Test Item Value Reference Range Interpretation Comments Urine Bilirubin (test code = 1978-6) NEGATIVE NEGATIVE [facility] WestUrine erythrocytes ioeufhocg3525-71-38 13:40:00* Test Item Value Reference Range Interpretation Comments Urine Blood (test code = 43792-0) MODERATE NEGATIVE [facility] WestAutomated urine sediment leukocyte count by microscopy (number/high power field)2019-12-02 13:40:00* Test Item Value Reference Range Interpretation Comments Urine WBC (test code = 5821-4) NONE /[HPF] 0-5 [facility] WestErythrocytes detection in urine sediment by light khdoutwztk5232-71-86 13:40:00* Test Item Value Reference Range Interpretation Comments Urine RBC (test code = 52739-6) 6-10 /[HPF] 0-5 [facility] WestBacteria detection in urine sediment by light qorhezcnvr4476-29-46 13:40:00* Test Item Value Reference Range Interpretation Comments Urine Bacteria (test code = 23287-2) MODERATE /[HPF] NONE [facility] WestEpithelial cells detection in urine sediment by light blczkwvnro2215-20-16 13:40:00* Test Item Value Reference Range Interpretation Comments Urine Epithelial Cells (test code = 14593-9) FEW /[LPF] NONE [facility] Hospitaler[facility] or plasma sodium measurement (moles/volume)2019-12-02 13:40:00* Test Item Value Reference Range Interpretation Comments Sodium Level (test code = 2951-2) 160 mmol/L 136-145 [facility] Hospitalerum or plasma potassium measurement (moles/volume)2019-12-02 13:40:00* Test Item Value Reference Range Interpretation Comments Potassium Level (test code = 2823-3) 4.6 mmol/L 3.5-5.1 [facility] Hospitalerum or plasma chloride measurement (moles/volume)2019-12-02 13:40:00* Test Item Value Reference Range Interpretation Comments Chloride Level (test code = 2075-0) 121 mmol/L 98-107 [facility] Hospitalerum or plasma carbon dioxide, total measurement (moles/volume)2019-12-02 13:40:00* Test Item Value Reference Range Interpretation Comments Carbon Dioxide Level (test code = 2028-9) 29 mmol/L 22-29 [facility] Hospitalerum or plasma anion huk7807-08-79 13:40:00* Test Item Value Reference Range Interpretation Comments Anion Gap (test code = 31787-7) 14.6 mmol/L 8-16 [facility] Hospitalerum or plasma urea nitrogen measurement (mass/volume)2019-12-02 13:40:00* Test Item Value Reference Range Interpretation Comments Blood Urea Nitrogen (test code = 3094-0) 34 mg/dL 7-26 [facility] Hospitalerum or plasma creatinine measurement (mass/volume)2019-12-02 13:40:00* Test Item Value Reference Range Interpretation Comments Creatinine (test code = 2160-0) 0.70 mg/dL 0.72-1.25 [facility] Hospitalerum or plasma urea nitrogen/creatinine mass neqax9595-82-34 13:40:00* Test Item Value Reference Range Interpretation Comments BUN/Creatinine Ratio (test code = 3097-3) 49 6-25 [facility] WestEstimated glomerular filtration rate (GFR) fhrnkozaiqafi3252-04-81 13:40:00* Test Item Value Reference Range Interpretation Comments Estimat Glomerular Filtration Rate (test code = 838422389) > 60 mL/ min >60 Ranges were taken from the National Kidney Disease Education Program and the [facility] literature.Reference ranges:60 or greater: Hkfspq13-84 ( for 3 consecutive months): Chronic kidney disease 15 or less: Kidney failureHCA [facility] WestGlucose pehpnqxpwbz8233-60-87 13:40:00* Test Item Value Reference Range Interpretation Comments Glucose Level (test code = LMO7911) 104 mg/dL 74-118 [facility] Hospitalerum or plasma calcium measurement (mass/volume)2019-12-02 13:40:00* Test Item Value Reference Range Interpretation Comments Calcium Level (test code = 15204-0) 8.6 mg/dL 8.4-10.2 [facility] Hospitalerum or plasma total bilirubin measurement (mass/volume)2019-12-02 13:40:00* Test Item Value Reference Range Interpretation Comments Total Bilirubin (test code = 1975-2) 0.4 mg/dL 0.2-1.2 [facility] WestFluoroscopic procedure less than one hour hatzyjio5960-16-21 13:40:00* Test Item Value Reference Range Interpretation Comments Aspartate Amino Transf (AST/SGOT) (test code = Aspartate Amino Transf (AST/SGOT)) 61 [IU]/L 5-34 [facility] Hospitalerum or plasma alanine aminotransferase measurement (enzymatic activity/volume)2019-12-02 13:40:00* Test Item Value Reference Range Interpretation Comments Alanine Aminotransferase (ALT/SGPT) (test code = 1742-6) 67 [IU]/L 0-55 [facility] Hospitalerum or plasma protein measurement (mass/volume)2019-12-02 13:40:00* Test Item Value Reference Range Interpretation Comments Total Protein (test code = 2885-2) 7.9 g/dL 6.5-8.1 [facility] Hospitalerum or plasma albumin measurement (mass/volume)2019-12-02 13:40:00* Test Item Value Reference Range Interpretation Comments Albumin (test code = 1751-7) 2.9 g/dL 3.5-5.0 [facility] WestPlasma globulin measurement (mass/volume) 2019-12-02 13:40:00* Test Item Value Reference Range Interpretation Comments Globulin (test code = 87741-2) 5.0 g/dL 2.3-3.5 [facility] Hospitalerum or plasma albumin/globulin mass ygndr6612-64-47 13:40:00* Test Item Value Reference Range Interpretation Comments Albumin/Globulin Ratio (test code = 1759-0) 0.6 0.8-2.0 [facility] Hospitalerum or plasma alkaline phosphatase measurement (enzymatic activity/volume)2019-12-02 13:40:00* Test Item Value Reference Range Interpretation Comments Alkaline Phosphatase (test code = 6768-6) 117 [IU]/L 40-150 [facility] Hospitalerum or plasma creatine kinase measurement (enzymatic activity/volume)2019-12-02 13:40:00* Test Item Value Reference Range Interpretation Comments Creatine Kinase (test code = 2157-6) 47 [IU]/L 30-200 [facility] Hospitalerum or plasma creatine kinase MB measurement (mass/volume)2019-12-02 13:40:00* Test Item Value Reference Range Interpretation Comments Creatine Kinase MB (test code = 20905-7) 0.60 ng/mL 0-5.0 [facility] WestTroponin I measurement by highly sensitive enzyme wpjyywclzoy0192-42-69 13:40:00* Test Item Value Reference Range Interpretation Comments Troponin I (test code = 92279-8) 0.002 ng/mL 0-0.300 [facility]Bl[facility] ll[facility] leukocytes automated count (number/volume)2019-12-02 13:40:00* Test Item Value Reference Range Interpretation Comments White Blood Count (test code = 6690-2) 5.19 10*3/uL 4.8-10.8 [facility]Bl[facility] erythrocytes automated count (number/volume)2019-12-02 13:40:00* Test Item Value Reference Range Interpretation Comments Red Blood Count (test code = 789-8) 4.39 10*6/mL 4.3-5.7 [facility] hemoglobin measurement (moles/volume)2019-12-02 13:40:00* Test Item Value Reference Range Interpretation Comments Hemoglobin (test code = 25037-3) 12.6 g/dL 14.0-18.0 [facility] WestAutomated blood hematocrit (volume fraction)2019-12-02 13:40:00* Test Item Value Reference Range Interpretation Comments Hematocrit (test code = 4544-3) 43.1 % 38.2-49.6 [facility] WestAutomated erythrocyte mean corpuscular csrexk5725-43-34 13:40:00* Test Item Value Reference Range Interpretation Comments Mean Corpuscular Volume (test code = 787-2) 98.2 81-99 [facility] WestAutomated erythrocyte mean corpuscular hemoglobin (mass per erythrocyte)2019-12-02 13:40:00* Test Item Value Reference Range Interpretation Comments Mean Corpuscular Hemoglobin (test code = 785-6) 28.7 pg 28-32 [facility] WestAutomated erythrocyte mean corpuscular hemoglobin concentration measurement (mass/volume)2019-12-02 13:40:00* Test Item Value Reference Range Interpretation Comments Mean Corpuscular Hemoglobin Concent (test code = 786-4) 29.2 g/dL 31-35 [facility] WestRDW CtoUs-Vph0939-93-24 13:40:00* Test Item Value Reference Range Interpretation Comments Red Cell Distribution Width (test code = 17144-2) 13.4 % 11.7 -14.4 [facility] WestAutomated blood platelet count (count/volume)2019-12-02 13:40:00* Test Item Value Reference Range Interpretation Comments Platelet Count (test code = 777-3) 69 10*3/uL 140-360 [facility] WestAutomated blood segmented neutrophil count as percentage of total npbdalzggv2157-41-92 13:40:00* Test Item Value Reference Range Interpretation Comments Neutrophils (%) (Auto) (test code = 16502-3) 61.1 % 38.7-80.0 [facility] WestAutomated blood lymphocyte count as percentage ot total dhcxyrrgkq9785-76-62 13:40:00* Test Item Value Reference Range Interpretation Comments Lymphocytes (%) (Auto) (test code = 736-9) 28.7 % 18.0-39.1 [facility] WestAutomated blood monocyte count as percentage of total vfpppohphg4526-70-27 13:40:00* Test Item Value Reference Range Interpretation Comments Monocytes (%) (Auto) (test code = 5905-5) 9.4 % 4.4-11.3 [facility] WestAutomated blood eosinophil count as percentage of total zsginltxjr0892-85-20 13:40:00* Test Item Value Reference Range Interpretation Comments Eosinophils (%) (Auto) (test code = 713-8) 0.2 % 0.0-6.0 [facility] WestAutomated blood basophil count as percentage of total aqvcinfgpj0427-04-68 13:40:00* Test Item Value Reference Range Interpretation Comments Basophils (%) (Auto) (test code = 706-2) 0.2 % 0.0-1.0 [facility] WestFluoroscopic procedure less than one hour mfvqriws5004-75-26 13:40:00* Test Item Value Reference Range Interpretation Comments IM GRANULOCYTES % (test code = IM GRANULOCYTES %) 0.4 % 0.0- 1.0 [facility] WestAutomated blood neutrophil count 2019-12-02 13:40:00* Test Item Value Reference Range Interpretation Comments Neutrophils # (Auto) (test code = 751-8) 3.2 2.1-6.9 [facility] WestBlood lymphocytes count (number/volume) 2019-12-02 13:40:00* Test Item Value Reference Range Interpretation Comments Lymphocytes # (Auto) (test code = 02881-0) 1.5 1.0-3.2 [facility] monocytes automated count (number/volume)2019-12-02 13:40:00* Test Item Value Reference Range Interpretation Comments Monocytes # (Auto) (test code = 742-7) 0.5 0.2-0.8 [facility] WestAutomated blood eosinophil count 2019-12-02 13:40:00* Test Item Value Reference Range Interpretation Comments Eosinophils # (Auto) (test code = 711-2) 0.0 0.0-0.4 [facility] WestAutomated blood basophil count (count/volume)2019-12-02 13:40:00* Test Item Value Reference Range Interpretation Comments Basophils # (Auto) (test code = 704-7) 0.0 0.0-0.1 [facility] WestFluoroscopic procedure less than one hour lpkmmcvf6886-66-41 13:40:00* Test Item Value Reference Range Interpretation Comments Absolute Immature Granulocyte (auto (mabel t code = Absolute Immature Granulocyte (auto) 0.02 10*3/uL 0-0.1 [facility] WestProthrombin time (PT) in platelet poor plasma by coagulation mmxfi1603-48-02 13:40:00* Test Item Value Reference Range Interpretation Comments Prothrombin Time (test code = 5902-2) 13.9 s 11.9-14.5 [facility] WestINR in Platelet poor plasma by Coagulation pyoap6346-74-44 13:40:00* Test Item Value Reference Range Interpretation Comments Prothromb Time International Ratio (test code = 6301-6) 1.02 Oral Anticoagulant Therapy INR Values:1. Low Intensity Therapy 1.5 - 2.02 . Moderate Intensity Therapy 2.0 - 3.03. High Intensity Therapy(1) 2.5 - 3. 54. High Intensity Therapy(2) 3.0 - 4.05. Panic Value INR > 5.0 [facility] WestActivated partial thromboplastin time (aPTT) in platelet poor plasma by coagulation nvlgm6943-90-27 13:40:00* Test Item Value Reference Range Interpretation Comments Activated Partial Thromboplast Time (test code = 75787-5) 33.3 s 23.8-35.5 [facility] WestUrine color yoehupymuqpit9140-32-08 13:40:00* Test Item Value Reference Range Interpretation Comments Urine Color (test code = 5778-6) STRAW YELLOW [facility] WestUrine ioqcefb3882-22-18 13:40:00* Test Item Value Reference Range Interpretation Comments Urine Clarity (test code = 39877-0) SL CLOUDY CLEAR [facility] Hospitalpecific gravity of Urine by Test strip 2019-12-02 13:40:00* Test Item Value Reference Range Interpretation Comments Urine Specific [place] (test code = 5811-5) 1.020 1.010-1.02 5 [facility] WestUrine pH measurement by automated test lqjug9895-52-46 13:40:00* Test Item Value Reference Range Interpretation Comments Urine pH (test code = 02866-8) 5.5 5-7 [facility] WestUrine leukocyte esterase detection by zamzfdcl8611-56-29 13:40:00* Test Item Value Reference Range Interpretation Comments Urine Leukocyte Esterase (test code = 5799-2) NEGATIVE NEGATIVE [facility] WestUrine nitrite zwizmrmlm6656-16-28 13:40:00* Test Item Value Reference Range Interpretation Comments Urine Nitrite (test code = 41194-3) NEGATIVE NEGATIVE [facility] WestUrine protein measurement by test strip (mass/volume)2019-12-02 13:40:00* Test Item Value Reference Range Interpretation Comments Urine Protein (test code = 5804-0) 2+ NEGATIVE [facility] WestUrine glucose appcwbujt0977-63-16 13:40:00* Test Item Value Reference Range Interpretation Comments Urine Glucose (UA) (test code = 2349-9) NEGATIVE NEGATIVE [facility] WestUrine ketones detection by automated test oruvr1010-96-64 13:40:00* Test Item Value Reference Range Interpretation Comments Urine Ketones (test code = 89188-0) NEGATIVE NEGATIVE [facility] WestUrine urobilinogen measurement by test strip (mass/volume)2019-12-02 13:40:00* Test Item Value Reference Range Interpretation Comments Urine Urobilinogen (test code = 70127-7) 1 mg/dL 0.2-1 [facility] WestUrine total bilirubin measurement (mass/volume)2019-12-02 13:40:00* Test Item Value Reference Range Interpretation Comments Urine Bilirubin (test code = 1978-6) NEGATIVE NEGATIVE [facility] WestUrine erythrocytes tqmtfgwen5930-76-94 13:40:00* Test Item Value Reference Range Interpretation Comments Urine Blood (test code = 82958-4) MODERATE NEGATIVE [facility] WestAutomated urine sediment leukocyte count by microscopy (number/high power field)2019-12-02 13:40:00* Test Item Value Reference Range Interpretation Comments Urine WBC (test code = 5821-4) NONE /[HPF] 0-5 [facility] WestErythrocytes detection in urine sediment by light iybgyaxrqp6932-54-80 13:40:00* Test Item Value Reference Range Interpretation Comments Urine RBC (test code = 42144-4) 6-10 /[HPF] 0-5 [facility] WestBacteria detection in urine sediment by light dunyutvequ6453-48-76 13:40:00* Test Item Value Reference Range Interpretation Comments Urine Bacteria (test code = 27028-6) MODERATE /[HPF] NONE [facility] WestEpithelial cells detection in urine sediment by light ainouohbss1195-83-83 13:40:00* Test Item Value Reference Range Interpretation Comments Urine Epithelial Cells (test code = 34796-8) FEW /[LPF] NONE [facility] sodium measurement (moles/volume)2019-12-02 13:40:00* Test Item Value Reference Range Interpretation Comments Sodium Level (test code = 2951-2) 160 mmol/L 136-145 [facility] Hospitalerum or plasma potassium measurement (moles/volume)2019-12-02 13:40:00* Test Item Value Reference Range Interpretation Comments Potassium Level (test code = 2823-3) 4.6 mmol/L 3.5-5.1 [facility] Hospitalerum or plasma chloride measurement (moles/volume)2019-12-02 13:40:00* Test Item Value Reference Range Interpretation Comments Chloride Level (test code = 2075-0) 121 mmol/L 98-107 [facility] Hospitalerum or plasma carbon dioxide, total measurement (moles/volume)2019-12-02 13:40:00* Test Item Value Reference Range Interpretation Comments Carbon Dioxide Level (test code = 2028-9) 29 mmol/L 22-29 [facility] Hospitalerum or plasma anion kot5113-37-41 13:40:00* Test Item Value Reference Range Interpretation Comments Anion Gap (test code = 19283-4) 14.6 mmol/L 8-16 [facility] Hospitalerum or plasma urea nitrogen measurement (mass/volume)2019-12-02 13:40:00* Test Item Value Reference Range Interpretation Comments Blood Urea Nitrogen (test code = 3094-0) 34 mg/dL 7- [facility] Hospitalerum or plasma creatinine measurement (mass/volume)2019-12-02 13:40:00* Test Item Value Reference Range Interpretation Comments Creatinine (test code = 2160-0) 0.70 mg/dL 0.72-1.25 [facility] Hospitalerum or plasma urea nitrogen/creatinine mass cstmq8993-58-29 13:40:00* Test Item Value Reference Range Interpretation Comments BUN/Creatinine Ratio (test code = 3097-3) 49 6-25 [facility] WestEstimated glomerular filtration rate (GFR) jvxkckvtorznb1115-02-10 13:40:00* Test Item Value Reference Range Interpretation Comments Estimat Glomerular Filtration Rate (test code = 632677772) > 60 mL/ min >60 Ranges were taken from the National Kidney Disease Education Program and the [facility] literature.Reference ranges:60 or greater: [id number] ( for 3 consecutive months): Chronic kidney disease 15 or less: Kidney failureH[facility] WestGlucose knsptbxbzck1364-29-96 13:40:00* Test Item Value Reference Range Interpretation Comments Glucose Level (test code = QIP3628) 104 mg/dL 74-118 [facility] Hospitalerum or plasma calcium measurement (mass/volume)2019-12-02 13:40:00* Test Item Value Reference Range Interpretation Comments Calcium Level (test code = 05239-1) 8.6 mg/dL 8.4-10.2 [facility] Hospitalerum or plasma total bilirubin measurement (mass/volume)2019-12-02 13:40:00* Test Item Value Reference Range Interpretation Comments Total Bilirubin (test code = 1975-2) 0.4 mg/dL 0.2-1.2 [facility] WestFluoroscopic procedure less than one hour jsrvftau7834-40-49 13:40:00* Test Item Value Reference Range Interpretation Comments Aspartate Amino Transf (AST/SGOT) (test code = Aspartate Amino Transf (AST/SGOT)) 61 [IU]/L 5-34 [facility] Hospitalerum or plasma alanine aminotransferase measurement (enzymatic activity/volume)2019-12-02 13:40:00* Test Item Value Reference Range Interpretation Comments Alanine Aminotransferase (ALT/SGPT) (test code = 1742-6) 67 [IU]/L 0-55 [facility] Hospitalerum or plasma protein measurement (mass/volume)2019-12-02 13:40:00* Test Item Value Reference Range Interpretation Comments Total Protein (test code = 2885-2) 7.9 g/dL 6.5-8.1 [facility] Hospitalerum or plasma albumin measurement (mass/volume)2019-12-02 13:40:00* Test Item Value Reference Range Interpretation Comments Albumin (test code = 1751-7) 2.9 g/dL 3.5-5.0 [facility] WestPlasma globulin measurement (mass/volume) 2019-12-02 13:40:00* Test Item Value Reference Range Interpretation Comments Globulin (test code = 35050-4) 5.0 g/dL 2.3-3.5 [facility] Hospitalerum or plasma albumin/globulin mass jpzwg9724-36-91 13:40:00* Test Item Value Reference Range Interpretation Comments Albumin/Globulin Ratio (test code = 1759-0) 0.6 0.8-2.0 [facility] Hospitalerum or plasma alkaline phosphatase measurement (enzymatic activity/volume)2019-12-02 13:40:00* Test Item Value Reference Range Interpretation Comments Alkaline Phosphatase (test code = 6768-6) 117 [IU]/L 40-150 [facility] Hospitalerum or plasma creatine kinase measurement (enzymatic activity/volume)2019-12-02 13:40:00* Test Item Value Reference Range Interpretation Comments Creatine Kinase (test code = 2157-6) 47 [IU]/L 30-200 [facility] Hospitalerum or plasma creatine kinase MB measurement (mass/volume)2019-12-02 13:40:00* Test Item Value Reference Range Interpretation Comments Creatine Kinase MB (test code = 96833-5) 0.60 ng/mL 0-5.0 [facility] WestTroponin I measurement by highly sensitive enzyme eijmrpqftdq1251-49-02 13:40:00* Test Item Value Reference Range Interpretation Comments Troponin I (test code = 89252-8) 0.002 ng/mL 0-0.300 [facility] WestBlood leukocytes automated count (number/volume)2019-12-02 13:40:00* Test Item Value Reference Range Interpretation Comments White Blood Count (test code = 6690-2) 5.19 10*3/uL 4.8-10.8 [facility] WestBlood erythrocytes automated count (number/volume)2019-12-02 13:40:00* Test Item Value Reference Range Interpretation Comments Red Blood Count (test code = 789-8) 4.39 10*6/mL 4.3-5.7 [facility] WestBlood hemoglobin measurement (moles/volume)2019-12-02 13:40:00* Test Item Value Reference Range Interpretation Comments Hemoglobin (test code = 50100-8) 12.6 g/dL 14.0-18.0 [facility] WestAutomated blood hematocrit (volume fraction)2019-12-02 13:40:00* Test Item Value Reference Range Interpretation Comments Hematocrit (test code = 4544-3) 43.1 % 38.2-49.6 [facility] WestAutomated erythrocyte mean corpuscular lwlpmr6891-69-04 13:40:00* Test Item Value Reference Range Interpretation Comments Mean Corpuscular Volume (test code = 787-2) 98.2 81-99 [facility] WestAutomated erythrocyte mean corpuscular hemoglobin (mass per erythrocyte)2019-12-02 13:40:00* Test Item Value Reference Range Interpretation Comments Mean Corpuscular Hemoglobin (test code = 785-6) 28.7 pg 28-32 [facility] WestAutomated erythrocyte mean corpuscular hemoglobin concentration measurement (mass/volume)2019-12-02 13:40:00* Test Item Value Reference Range Interpretation Comments Mean Corpuscular Hemoglobin Concent (test code = 786-4) 29.2 g/dL 31-35 [facility] WestRDW KybQq-Eqm1088-63-24 13:40:00* Test Item Value Reference Range Interpretation Comments Red Cell Distribution Width (test code = 13688-8) 13.4 % 11.7 -14.4 [facility] WestAutomated blood platelet count (count/volume)2019-12-02 13:40:00* Test Item Value Reference Range Interpretation Comments Platelet Count (test code = 777-3) 69 10*3/uL 140-360 [facility] WestAutomated blood segmented neutrophil count as percentage of total ugockjykfl5563-90-07 13:40:00* Test Item Value Reference Range Interpretation Comments Neutrophils (%) (Auto) (test code = 71575-3) 61.1 % 38.7-80.0 [facility] WestAutomated blood lymphocyte count as percentage ot total jvbfgfgbmh7516-02-80 13:40:00* Test Item Value Reference Range Interpretation Comments Lymphocytes (%) (Auto) (test code = 736-9) 28.7 % 18.0-39.1 [facility] WestAutomated blood monocyte count as percentage of total ovvwxzenzf9265-26-63 13:40:00* Test Item Value Reference Range Interpretation Comments Monocytes (%) (Auto) (test code = 5905-5) 9.4 % 4.4-11.3 [facility] WestAutomated blood eosinophil count as percentage of total xajxhhebkj4282-79-73 13:40:00* Test Item Value Reference Range Interpretation Comments Eosinophils (%) (Auto) (test code = 713-8) 0.2 % 0.0-6.0 [facility] WestAutomated blood basophil count as percentage of total eaogflsuji9423-02-22 13:40:00* Test Item Value Reference Range Interpretation Comments Basophils (%) (Auto) (test code = 706-2) 0.2 % 0.0-1.0 [facility] WestFluoroscopic procedure less than one hour pcdhrkyo3200-72-05 13:40:00* Test Item Value Reference Range Interpretation Comments IM GRANULOCYTES % (test code = IM GRANULOCYTES %) 0.4 % 0.0- 1.0 [facility] WestAutomated blood neutrophil count 2019-12-02 13:40:00* Test Item Value Reference Range Interpretation Comments Neutrophils # (Auto) (test code = 751-8) 3.2 2.1-6.9 [facility] WestBlood lymphocytes count (number/volume) 2019-12-02 13:40:00* Test Item Value Reference Range Interpretation Comments Lymphocytes # (Auto) (test code = 98600-5) 1.5 1.0-3.2 [facility] WestBlood monocytes automated count (number/volume)2019-12-02 13:40:00* Test Item Value Reference Range Interpretation Comments Monocytes # (Auto) (test code = 742-7) 0.5 0.2-0.8 [facility] WestAutomated blood eosinophil count 2019-12-02 13:40:00* Test Item Value Reference Range Interpretation Comments Eosinophils # (Auto) (test code = 711-2) 0.0 0.0-0.4 [facility] WestAutomated blood basophil count (count/volume)2019-12-02 13:40:00* Test Item Value Reference Range Interpretation Comments Basophils # (Auto) (test code = 704-7) 0.0 0.0-0.1 [facility] WestFluoroscopic procedure less than one hour hztfinmm0409-19-93 13:40:00* Test Item Value Reference Range Interpretation Comments Absolute Immature Granulocyte (auto (mabel t code = Absolute Immature Granulocyte (auto) 0.02 10*3/uL 0-0.1 [facility] WestProthrombin time (PT) in platelet poor plasma by coagulation sehbx5688-84-48 13:40:00* Test Item Value Reference Range Interpretation Comments Prothrombin Time (test code = 5902-2) 13.9 s 11.9-14.5 [facility] WestINR in Platelet poor plasma by Coagulation ytehh9223-56-78 13:40:00* Test Item Value Reference Range Interpretation Comments Prothromb Time International Ratio (test code = 6301-6) 1.02 Oral Anticoagulant Therapy INR Values:1. Low Intensity Therapy 1.5 - 2.02 . Moderate Intensity Therapy 2.0 - 3.03. High Intensity Therapy(1) 2.5 - 3. 54. High Intensity Therapy(2) 3.0 - 4.05. Panic Value INR > 5.0 [facility] WestActivated partial thromboplastin time (aPTT) in platelet poor plasma by coagulation sqrkt9684-45-18 13:40:00* Test Item Value Reference Range Interpretation Comments Activated Partial Thromboplast Time (test code = 60559-0) 33.3 s 23.8-35.5 [facility] WestUrine color bhifitxqgvjef9103-94-52 13:40:00* Test Item Value Reference Range Interpretation Comments Urine Color (test code = 5778-6) STRAW YELLOW [facility] WestUrine tpmlswr9325-81-02 13:40:00* Test Item Value Reference Range Interpretation Comments Urine Clarity (test code = 91623-2) SL CLOUDY CLEAR [facility] Hospitalpecific gravity of Urine by Test strip 2019-12-02 13:40:00* Test Item Value Reference Range Interpretation Comments Urine Specific [place] (test code = 5811-5) 1.020 1.010-1.02 5 [facility] WestUrine pH measurement by automated test whbvr0398-49-77 13:40:00* Test Item Value Reference Range Interpretation Comments Urine pH (test code = 03798-8) 5.5 5-7 [facility] WestUrine leukocyte esterase detection by cmeswnqz0930-02-79 13:40:00* Test Item Value Reference Range Interpretation Comments Urine Leukocyte Esterase (test code = 5799-2) NEGATIVE NEGATIVE [facility] WestUrine nitrite djtuzdryd6033-81-94 13:40:00* Test Item Value Reference Range Interpretation Comments Urine Nitrite (test code = 47489-2) NEGATIVE NEGATIVE [facility] WestUrine protein measurement by test strip (mass/volume)2019-12-02 13:40:00* Test Item Value Reference Range Interpretation Comments Urine Protein (test code = 5804-0) 2+ NEGATIVE [facility] WestUrine glucose mixlojzsd1322-25-97 13:40:00* Test Item Value Reference Range Interpretation Comments Urine Glucose (UA) (test code = 2349-9) NEGATIVE NEGATIVE [facility] WestUrine ketones detection by automated test qasps7523-04-35 13:40:00* Test Item Value Reference Range Interpretation Comments Urine Ketones (test code = 12594-4) NEGATIVE NEGATIVE [facility] WestUrine urobilinogen measurement by test strip (mass/volume)2019-12-02 13:40:00* Test Item Value Reference Range Interpretation Comments Urine Urobilinogen (test code = 87012-3) 1 mg/dL 0.2-1 [facility] WestUrine total bilirubin measurement (mass/volume)2019-12-02 13:40:00* Test Item Value Reference Range Interpretation Comments Urine Bilirubin (test code = 1978-6) NEGATIVE NEGATIVE [facility] WestUrine erythrocytes ovcofqbqd6596-84-55 13:40:00* Test Item Value Reference Range Interpretation Comments Urine Blood (test code = 40885-4) MODERATE NEGATIVE [facility] WestAutomated urine sediment leukocyte count by microscopy (number/high power field)2019-12-02 13:40:00* Test Item Value Reference Range Interpretation Comments Urine WBC (test code = 5821-4) NONE /[HPF] 0-5 [facility] WestErythrocytes detection in urine sediment by light qppaglgwtp4313-81-92 13:40:00* Test Item Value Reference Range Interpretation Comments Urine RBC (test code = 49710-0) 6-10 /[HPF] 0-5 [facility] WestBacteria detection in urine sediment by light hsmoqhepad0159-42-44 13:40:00* Test Item Value Reference Range Interpretation Comments Urine Bacteria (test code = 50384-2) MODERATE /[HPF] NONE [facility] WestEpithelial cells detection in urine sediment by light mnpmtmmyzc6090-83-13 13:40:00* Test Item Value Reference Range Interpretation Comments Urine Epithelial Cells (test code = 07042-1) FEW /[LPF] NONE [facility] Hospitalerum or plasma sodium measurement (moles/volume)2019-12-02 13:40:00* Test Item Value Reference Range Interpretation Comments Sodium Level (test code = 2951-2) 160 mmol/L 136-145 [facility] Hospitalerum or plasma potassium measurement (moles/volume)2019-12-02 13:40:00* Test Item Value Reference Range Interpretation Comments Potassium Level (test code = 2823-3) 4.6 mmol/L 3.5-5.1 [facility] Hospitalerum or plasma chloride measurement (moles/volume)2019-12-02 13:40:00* Test Item Value Reference Range Interpretation Comments Chloride Level (test code = 2075-0) 121 mmol/L 98-107 [facility] Hospitalerum or plasma carbon dioxide, total measurement (moles/volume)2019-12-02 13:40:00* Test Item Value Reference Range Interpretation Comments Carbon Dioxide Level (test code = 2028-9) 29 mmol/L 22-29 [facility] Hospitalerum or plasma anion fkz8958-32-11 13:40:00* Test Item Value Reference Range Interpretation Comments Anion Gap (test code = 16415-5) 14.6 mmol/L 8-16 [facility] Hospitalerum or plasma urea nitrogen measurement (mass/volume)2019-12-02 13:40:00* Test Item Value Reference Range Interpretation Comments Blood Urea Nitrogen (test code = 3094-0) 34 mg/dL 7-26 [facility] Hospitalerum or plasma creatinine measurement (mass/volume)2019-12-02 13:40:00* Test Item Value Reference Range Interpretation Comments Creatinine (test code = 2160-0) 0.70 mg/dL 0.72-1.25 [facility] Hospitalerum or plasma urea nitrogen/creatinine mass ueplk5802-15-61 13:40:00* Test Item Value Reference Range Interpretation Comments BUN/Creatinine Ratio (test code = 3097-3) 49 6-25 [facility] WestEstimated glomerular filtration rate (GFR) lbljpxqesates4159-12-18 13:40:00* Test Item Value Reference Range Interpretation Comments Estimat Glomerular Filtration Rate (test code = 379840666) > 60 mL/ min >60 Ranges were taken from the National Kidney Disease Education Program and the [facility] literature.Reference ranges:60 or greater: Yvtxmn16-08 ( for 3 consecutive months): Chronic kidney disease 15 or less: Kidney failureHCA [facility] Healthcare WestGlucose pnalyncdkqt4361-37-77 13:40:00* Test Item Value Reference Range Interpretation Comments Glucose Level (test code = VOK7055) 104 mg/dL 74-118 [facility] Hospitalerum or plasma calcium measurement (mass/volume)2019-12-02 13:40:00* Test Item Value Reference Range Interpretation Comments Calcium Level (test code = 09347-6) 8.6 mg/dL 8.4-10.2 [facility] Hospitalerum or plasma total bilirubin measurement (mass/volume)2019-12-02 13:40:00* Test Item Value Reference Range Interpretation Comments Total Bilirubin (test code = 1975-2) 0.4 mg/dL 0.2-1.2 [facility] WestFluoroscopic procedure less than one hour zjjzwgqb9464-93-81 13:40:00* Test Item Value Reference Range Interpretation Comments Aspartate Amino Transf (AST/SGOT) (test code = Aspartate Amino Transf (AST/SGOT)) 61 [IU]/L 5-34 [facility] Hospitalerum or plasma alanine aminotransferase measurement (enzymatic activity/volume)2019-12-02 13:40:00* Test Item Value Reference Range Interpretation Comments Alanine Aminotransferase (ALT/SGPT) (test code = 1742-6) 67 [IU]/L 0-55 [facility] Hospitalerum or plasma protein measurement (mass/volume)2019-12-02 13:40:00* Test Item Value Reference Range Interpretation Comments Total Protein (test code = 2885-2) 7.9 g/dL 6.5-8.1 [facility] Hospitalerum or plasma albumin measurement (mass/volume)2019-12-02 13:40:00* Test Item Value Reference Range Interpretation Comments Albumin (test code = 1751-7) 2.9 g/dL 3.5-5.0 [facility] WestPlasma globulin measurement (mass/volume) 2019-12-02 13:40:00* Test Item Value Reference Range Interpretation Comments Globulin (test code = 18942-2) 5.0 g/dL 2.3-3.5 [facility] Hospitalerum or plasma albumin/globulin mass brzfm4560-87-59 13:40:00* Test Item Value Reference Range Interpretation Comments Albumin/Globulin Ratio (test code = 1759-0) 0.6 0.8-2.0 [facility] Hospitalerum or plasma alkaline phosphatase measurement (enzymatic activity/volume)2019-12-02 13:40:00* Test Item Value Reference Range Interpretation Comments Alkaline Phosphatase (test code = 6768-6) 117 [IU]/L 40-150 [facility] Hospitalerum or plasma creatine kinase measurement (enzymatic activity/volume)2019-12-02 13:40:00* Test Item Value Reference Range Interpretation Comments Creatine Kinase (test code = 2157-6) 47 [IU]/L 30-200 [facility] Hospitalerum or plasma creatine kinase MB measurement (mass/volume)2019-12-02 13:40:00* Test Item Value Reference Range Interpretation Comments Creatine Kinase MB (test code = 02344-2) 0.60 ng/mL 0-5.0 [facility] WestTroponin I measurement by highly sensitive enzyme attfzocvdeh3116-62-06 13:40:00* Test Item Value Reference Range Interpretation Comments Troponin I (test code = 75135-0) 0.002 ng/mL 0-0.300 [facility] leukocytes automated count (number/volume)2019-12-02 13:40:00* Test Item Value Reference Range Interpretation Comments White Blood Count (test code = 6690-2) 5.19 10*3/uL 4.8-10.8 [facility] erythrocytes automated count (number/volume)2019-12-02 13:40:00* Test Item Value Reference Range Interpretation Comments Red Blood Count (test code = 789-8) 4.39 10*6/mL 4.3-5.7 [facility] hemoglobin measurement (moles/volume)2019-12-02 13:40:00* Test Item Value Reference Range Interpretation Comments Hemoglobin (test code = 94727-1) 12.6 g/dL 14.0-18.0 [facility] WestAutomated blood hematocrit (volume fraction)2019-12-02 13:40:00* Test Item Value Reference Range Interpretation Comments Hematocrit (test code = 4544-3) 43.1 % 38.2-49.6 [facility] WestAutomated erythrocyte mean corpuscular qdqgez1062-40-91 13:40:00* Test Item Value Reference Range Interpretation Comments Mean Corpuscular Volume (test code = 787-2) 98.2 81-99 [facility] WestAutomated erythrocyte mean corpuscular hemoglobin (mass per erythrocyte)2019-12-02 13:40:00* Test Item Value Reference Range Interpretation Comments Mean Corpuscular Hemoglobin (test code = 785-6) 28.7 pg 28-32 [facility] WestAutomated erythrocyte mean corpuscular hemoglobin concentration measurement (mass/volume)2019-12-02 13:40:00* Test Item Value Reference Range Interpretation Comments Mean Corpuscular Hemoglobin Concent (test code = 786-4) 29.2 g/dL 31-35 [facility] WestRDW VkfPp-Kdt5219-55-24 13:40:00* Test Item Value Reference Range Interpretation Comments Red Cell Distribution Width (test code = 20227-2) 13.4 % 11.7 -14.4 [facility] WestAutomated blood platelet count (count/volume)2019-12-02 13:40:00* Test Item Value Reference Range Interpretation Comments Platelet Count (test code = 777-3) 69 10*3/uL 140-360 [facility] WestAutomated blood segmented neutrophil count as percentage of total mcxassquou8155-58-59 13:40:00* Test Item Value Reference Range Interpretation Comments Neutrophils (%) (Auto) (test code = 59850-0) 61.1 % 38.7-80.0 [facility] WestAutcentral [facility] hospitaled blood lymphocyte count as percentage ot total slvbmvnfyi2853-13-53 13:40:00* Test Item Value Reference Range Interpretation Comments Lymphocytes (%) (Auto) (test code = 736-9) 28.7 % 18.0-39.1 [facility] WestAutomated blood monocyte count as percentage of total alffpbesqj7969-87-98 13:40:00* Test Item Value Reference Range Interpretation Comments Monocytes (%) (Auto) (test code = 5905-5) 9.4 % 4.4-11.3 [facility] WestAutomated blood eosinophil count as percentage of total mgrztxzjkw3497-73-53 13:40:00* Test Item Value Reference Range Interpretation Comments Eosinophils (%) (Auto) (test code = 713-8) 0.2 % 0.0-6.[address] [facility] basophil count as percentage of total dbmcryvnbn7351-31-83 13:40:00* Test Item Value Reference Range Interpretation Comments Basophils (%) (Auto) (test code = 706-2) 0.2 % 0.0-1.0 [facility] WestFluoroscopic procedure less than one hour nvbhudjo8079-03-70 13:40:00* Test Item Value Reference Range Interpretation Comments IM GRANULOCYTES % (test code = IM GRANULOCYTES %) 0.4 % 0.0- 1.0 [facility] WestAutomated blood neutrophil count 2019-12-02 13:40:00* Test Item Value Reference Range Interpretation Comments Neutrophils # (Auto) (test code = 751-8) 3.2 2.1-6.9 [facility] WestBlood lymphocytes count (number/volume) 2019-12-02 13:40:00* Test Item Value Reference Range Interpretation Comments Lymphocytes # (Auto) (test code = 44082-5) 1.5 1.0-3.2 [facility] WestBlood monocytes automated count (number/volume)2019-12-02 13:40:00* Test Item Value Reference Range Interpretation Comments Monocytes # (Auto) (test code = 742-7) 0.5 0.2-0.8 [facility] WestAutomated blood eosinophil count 2019-12-02 13:40:00* Test Item Value Reference Range Interpretation Comments Eosinophils # (Auto) (test code = 711-2) 0.0 0.0-0.4 [facility] WestAutomated blood basophil count (count/volume)2019-12-02 13:40:00* Test Item Value Reference Range Interpretation Comments Basophils # (Auto) (test code = 704-7) 0.0 0.0-0.1 [facility] WestFluoroscopic procedure less than one hour qavgceto0398-96-62 13:40:00* Test Item Value Reference Range Interpretation Comments Absolute Immature Granulocyte (auto (mabel t code = Absolute Immature Granulocyte (auto) 0.02 10*3/uL 0-0.1 [facility] WestProthrombin time (PT) in platelet poor plasma by coagulation [id number] 13:40:00* Test Item Value Reference Range Interpretation Comments Prothrombin Time (test code = 5902-2) 13.9 s 11.9-14.5 [facility] WestINR in Platelet poor plasma by Coagulation [id number] 13:40:00* Test Item Value Reference Range Interpretation Comments Prothromb Time International Ratio (test code = 6301-6) 1.02 Oral Anticoagulant Therapy INR Values:1. Low Intensity Therapy 1.5 - 2.02 . Moderate Intensity Therapy 2.0 - 3.03. High Intensity Therapy(1) 2.5 - 3. 54. High Intensity Therapy(2) 3.0 - 4.05. Panic Value INR > 5.0 [facility] WestActivated partial thromboplastin time (aPTT) in platelet poor plasma by coagulation vfvru2754-69-55 13:40:00* Test Item Value Reference Range Interpretation Comments Activated Partial Thromboplast Time (test code = 34540-8) 33.3 s 23.8-35.5 [facility] WestUrine color pvoronbnihmbq1594-18-14 13:40:00* Test Item Value Reference Range Interpretation Comments Urine Color (test code = 5778-6) STRAW YELLOW [facility] WestUrine iywredn2263-87-57 13:40:00* Test Item Value Reference Range Interpretation Comments Urine Clarity (test code = 77564-9) SL CLOUDY CLEAR [facility] by Test strip 2019-12-02 13:40:00* Test Item Value Reference Range Interpretation Comments Urine Specific [place] (test code = 5811-5) 1.020 1.010-1.02 5 [facility] WestUrine pH measurement by automated test qqjlm4912-37-88 13:40:00* Test Item Value Reference Range Interpretation Comments Urine pH (test code = 19781-5) 5.5 5-7 [facility] WestUrine leukocyte esterase detection by kkbgyxjf2932-21-64 13:40:00* Test Item Value Reference Range Interpretation Comments Urine Leukocyte Esterase (test code = 5799-2) NEGATIVE NEGATIVE [facility] WestUrine nitrite fwjqorlpx0360-53-74 13:40:00* Test Item Value Reference Range Interpretation Comments Urine Nitrite (test code = 10013-5) NEGATIVE NEGATIVE [facility] WestUrine protein measurement by test strip (mass/volume)2019-12-02 13:40:00* Test Item Value Reference Range Interpretation Comments Urine Protein (test code = 5804-0) 2+ NEGATIVE [facility] WestUrine glucose uwivtesbe6451-46-29 13:40:00* Test Item Value Reference Range Interpretation Comments Urine Glucose (UA) (test code = 2349-9) NEGATIVE NEGATIVE [facility] WestUrine ketones detection by automated test wmewh8459-60-01 13:40:00* Test Item Value Reference Range Interpretation Comments Urine Ketones (test code = 53649-3) NEGATIVE NEGATIVE [facility] WestUrine urobilinogen measurement by test strip (mass/volume)2019-12-02 13:40:00* Test Item Value Reference Range Interpretation Comments Urine Urobilinogen (test code = 57242-8) 1 mg/dL 0.2-1 [facility] WestUrine total bilirubin measurement (mass/volume)2019-12-02 13:40:00* Test Item Value Reference Range Interpretation Comments Urine Bilirubin (test code = 1978-6) NEGATIVE NEGATIVE [facility] WestUrine erythrocytes fcecrhnqg0916-72-93 13:40:00* Test Item Value Reference Range Interpretation Comments Urine Blood (test code = 09884-8) MODERATE NEGATIVE [facility] WestAutomated urine sediment leukocyte count by microscopy (number/high power field)2019-12-02 13:40:00* Test Item Value Reference Range Interpretation Comments Urine WBC (test code = 5821-4) NONE /[HPF] 0-5 [facility] WestErythrocytes detection in urine sediment by light wdilcbplua1057-67-18 13:40:00* Test Item Value Reference Range Interpretation Comments Urine RBC (test code = 00541-6) 6-10 /[HPF] 0-5 [facility] WestBacteria detection in urine sediment by light ccwobrcofi3451-98-84 13:40:00* Test Item Value Reference Range Interpretation Comments Urine Bacteria (test code = 74882-7) MODERATE /[HPF] NONE [facility] WestEpithelial cells detection in urine sediment by light rzonnwkiyj9474-13-22 13:40:00* Test Item Value Reference Range Interpretation Comments Urine Epithelial Cells (test code = 14082-2) FEW /[LPF] NONE [facility] Hospitalerum or plasma sodium measurement (moles/volume)2019-12-02 13:40:00* Test Item Value Reference Range Interpretation Comments Sodium Level (test code = 2951-2) 160 mmol/L 136-145 [facility] Hospitalerum or plasma potassium measurement (moles/volume)2019-12-02 13:40:00* Test Item Value Reference Range Interpretation Comments Potassium Level (test code = 2823-3) 4.6 mmol/L 3.5-5.1 [facility] Hospitalerum or plasma chloride measurement (moles/volume)2019-12-02 13:40:00* Test Item Value Reference Range Interpretation Comments Chloride Level (test code = 2075-0) 121 mmol/L 98-107 [facility] Hospitalerum or plasma carbon dioxide, total measurement (moles/volume)2019-12-02 13:40:00* Test Item Value Reference Range Interpretation Comments Carbon Dioxide Level (test code = 2028-9) 29 mmol/L 22-29 [facility] Hospitalerum or plasma anion rit2504-34-54 13:40:00* Test Item Value Reference Range Interpretation Comments Anion Gap (test code = 16538-2) 14.6 mmol/L 8-16 [facility] Hospitalerum or plasma urea nitrogen measurement (mass/volume)2019-12-02 13:40:00* Test Item Value Reference Range Interpretation Comments Blood Urea Nitrogen (test code = 3094-0) 34 mg/dL 7-26 [facility] Hospitalerum or plasma creatinine measurement (mass/volume)2019-12-02 13:40:00* Test Item Value Reference Range Interpretation Comments Creatinine (test code = 2160-0) 0.70 mg/dL 0.72-1.25 [facility] Hospitalerum or plasma urea nitrogen/creatinine mass gdenm3907-44-01 13:40:00* Test Item Value Reference Range Interpretation Comments BUN/Creatinine Ratio (test code = 3097-3) 49 6-25 [facility] WestEstimated glomerular filtration rate (GFR) srqbpplgbwyiv8415-66-16 13:40:00* Test Item Value Reference Range Interpretation Comments Estimat Glomerular Filtration Rate (test code = 104358907) > 60 mL/ min >60 Ranges were taken from the National Kidney Disease Education Program and the [facility] literature.Reference ranges:60 or greater: Zdusrs43-18 ( for 3 consecutive months): Chronic kidney disease 15 or less: Kidney failureHCA [facility] Healthcare WestGlucose lbqwklmqjtu5914-87-27 13:40:00* Test Item Value Reference Range Interpretation Comments Glucose Level (test code = EDN1715) 104 mg/dL 74-118 [facility] Hospitalerum or plasma calcium measurement (mass/volume)2019-12-02 13:40:00* Test Item Value Reference Range Interpretation Comments Calcium Level (test code = 69146-0) 8.6 mg/dL 8.4-10.2 [facility] Hospitalerum or plasma total bilirubin measurement (mass/volume)2019-12-02 13:40:00* Test Item Value Reference Range Interpretation Comments Total Bilirubin (test code = 1975-2) 0.4 mg/dL 0.2-1.2 [facility] WestFluoroscopic procedure less than one hour lglrvrfe5438-68-68 13:40:00* Test Item Value Reference Range Interpretation Comments Aspartate Amino Transf (AST/SGOT) (test code = Aspartate Amino Transf (AST/SGOT)) 61 [IU]/L 5-34 [facility] Hospitalerum or plasma alanine aminotransferase measurement (enzymatic activity/volume)2019-12-02 13:40:00* Test Item Value Reference Range Interpretation Comments Alanine Aminotransferase (ALT/SGPT) (test code = 1742-6) 67 [IU]/L 0-55 [facility] Hospitalerum or plasma protein measurement (mass/volume)2019-12-02 13:40:00* Test Item Value Reference Range Interpretation Comments Total Protein (test code = 2885-2) 7.9 g/dL 6.5-8.1 [facility] Hospitalerum or plasma albumin measurement (mass/volume)2019-12-02 13:40:00* Test Item Value Reference Range Interpretation Comments Albumin (test code = 1751-7) 2.9 g/dL 3.5-5.0 [facility] WestPlasma globulin measurement (mass/volume) 2019-12-02 13:40:00* Test Item Value Reference Range Interpretation Comments Globulin (test code = 64464-3) 5.0 g/dL 2.3-3.5 [facility] Hospitalerum or plasma albumin/globulin mass fdbdt1235-73-52 13:40:00* Test Item Value Reference Range Interpretation Comments Albumin/Globulin Ratio (test code = 1759-0) 0.6 0.8-2.0 [facility] Hospitalerum or plasma alkaline phosphatase measurement (enzymatic activity/volume)2019-12-02 13:40:00* Test Item Value Reference Range Interpretation Comments Alkaline Phosphatase (test code = 6768-6) 117 [IU]/L 40-150 [facility] Hospitalerum or plasma creatine kinase measurement (enzymatic activity/volume)2019-12-02 13:40:00* Test Item Value Reference Range Interpretation Comments Creatine Kinase (test code = 2157-6) 47 [IU]/L 30-200 [facility] Hospitalerum or plasma creatine kinase MB measurement (mass/volume)2019-12-02 13:40:00* Test Item Value Reference Range Interpretation Comments Creatine Kinase MB (test code = 94104-0) 0.60 ng/mL 0-5.0 [facility] WestTroponin I measurement by highly sensitive enzyme xwdlpzvmhbv9995-68-85 13:40:00* Test Item Value Reference Range Interpretation Comments Troponin I (test code = 49044-2) 0.002 ng/mL 0-0.300 [facility] WestBlood leukocytes automated count (number/volume)2019-12-02 13:40:00* Test Item Value Reference Range Interpretation Comments White Blood Count (test code = 6690-2) 5.19 10*3/uL 4.8-10.8 [facility] WestBlood erythrocytes automated count (number/volume)2019-12-02 13:40:00* Test Item Value Reference Range Interpretation Comments Red Blood Count (test code = 789-8) 4.39 10*6/mL 4.3-5.7 [facility] WestBlood hemoglobin measurement (moles/volume)2019-12-02 13:40:00* Test Item Value Reference Range Interpretation Comments Hemoglobin (test code = 52923-8) 12.6 g/dL 14.0-18.0 [facility] WestAutomated blood hematocrit (volume fraction)2019-12-02 13:40:00* Test Item Value Reference Range Interpretation Comments Hematocrit (test code = 4544-3) 43.1 % 38.2-49.6 [facility] WestAutomated erythrocyte mean corpuscular jubhia7849-16-31 13:40:00* Test Item Value Reference Range Interpretation Comments Mean Corpuscular Volume (test code = 787-2) 98.2 81-99 [facility] WestAutomated erythrocyte mean corpuscular hemoglobin (mass per erythrocyte)2019-12-02 13:40:00* Test Item Value Reference Range Interpretation Comments Mean Corpuscular Hemoglobin (test code = 785-6) 28.7 pg 28-32 [facility] WestAutomated erythrocyte mean corpuscular hemoglobin concentration measurement (mass/volume)2019-12-02 13:40:00* Test Item Value Reference Range Interpretation Comments Mean Corpuscular Hemoglobin Concent (test code = 786-4) 29.2 g/dL 31-35 [facility] WestRDW KniRc-Nzm8544-83-24 13:40:00* Test Item Value Reference Range Interpretation Comments Red Cell Distribution Width (test code = 18661-8) 13.4 % 11.7 -14.4 [facility] WestAutomated blood platelet count (count/volume)2019-12-02 13:40:00* Test Item Value Reference Range Interpretation Comments Platelet Count (test code = 777-3) 69 10*3/uL 140-360 [facility] WestAutcentral [facility]ol[facility] hospitaled blood segmented neutrophil count as percentage of total imqvmomaev0585-66-20 13:40:00* Test Item Value Reference Range Interpretation Comments Neutrophils (%) (Auto) (test code = 38630-7) 61.1 % 38.7-80.0 [facility] WestAutomated blood lymphocyte count as percentage ot total utmacakjpv1947-64-52 13:40:00* Test Item Value Reference Range Interpretation Comments Lymphocytes (%) (Auto) (test code = 736-9) 28.7 % 18.0-39.1 [facility] WestAutomated blood monocyte count as percentage of total xjhdneverb6344-47-72 13:40:00* Test Item Value Reference Range Interpretation Comments Monocytes (%) (Auto) (test code = 5905-5) 9.4 % 4.4-11.3 [facility] Northwested blood eosinophil count as percentage of total qujlrlwhbq1015-33-19 13:40:00* Test Item Value Reference Range Interpretation Comments Eosinophils (%) (Auto) (test code = 713-8) 0.2 % 0.0-6.0 [facility] WestAutomated blood basophil count as percentage of total gsltzxazaf8539-04-46 13:40:00* Test Item Value Reference Range Interpretation Comments Basophils (%) (Auto) (test code = 706-2) 0.2 % 0.0-1.0 [facility] WestFluoroscopic procedure less than one hour zigajctr1059-85-52 13:40:00* Test Item Value Reference Range Interpretation Comments IM GRANULOCYTES % (test code = IM GRANULOCYTES %) 0.4 % 0.0- 1.0 [facility] WestAutomated blood neutrophil count 2019-12-02 13:40:00* Test Item Value Reference Range Interpretation Comments Neutrophils # (Auto) (test code = 751-8) 3.2 2.1-6.9 [facility] WestBlood lymphocytes count (number/volume) 2019-12-02 13:40:00* Test Item Value Reference Range Interpretation Comments Lymphocytes # (Auto) (test code = 84855-5) 1.5 1.0-3.2 [facility] WestBlred[facility] llc monocytes automated count (number/volume)2019-12-02 13:40:00* Test Item Value Reference Range Interpretation Comments Monocytes # (Auto) (test code = 742-7) 0.5 0.2-0.8 [facility] WestAutomated blood eosinophil count 2019-12-02 13:40:00* Test Item Value Reference Range Interpretation Comments Eosinophils # (Auto) (test code = 711-2) 0.0 0.0-0.4 [facility] WestAutomated blood basophil count (count/volume)2019-12-02 13:40:00* Test Item Value Reference Range Interpretation Comments Basophils # (Auto) (test code = 704-7) 0.0 0.0-0.1 [facility] WestFluoroscopic procedure less than one hour cdkcczfx3060-36-93 13:40:00* Test Item Value Reference Range Interpretation Comments Absolute Immature Granulocyte (auto (mabel t code = Absolute Immature Granulocyte (auto) 0.02 10*3/uL 0-0.1 [facility] WestProthrombin time (PT) in platelet poor plasma by coagulation hosaa3227-40-68 13:40:00* Test Item Value Reference Range Interpretation Comments Prothrombin Time (test code = 5902-2) 13.9 s 11.9-14.5 [facility] WestINR in Platelet poor plasma by Coagulation zhocs9630-13-40 13:40:00* Test Item Value Reference Range Interpretation Comments Prothromb Time International Ratio (test code = 6301-6) 1.02 Oral Anticoagulant Therapy INR Values:1. Low Intensity Therapy 1.5 - 2.02 . Moderate Intensity Therapy 2.0 - 3.03. High Intensity Therapy(1) 2.5 - 3. 54. High Intensity Therapy(2) 3.0 - 4.05. Panic Value INR > 5.0 [facility] WestActivated partial thromboplastin time (aPTT) in platelet poor plasma by coagulation rjhcj6431-00-77 13:40:00* Test Item Value Reference Range Interpretation Comments Activated Partial Thromboplast Time (test code = 81381-2) 33.3 s 23.8-35.5 [facility] WestUrine color ioqvxwxxciecv9151-34-47 13:40:00* Test Item Value Reference Range Interpretation Comments Urine Color (test code = 5778-6) STRAW YELLOW [facility] WestUrine wpxejdo7104-88-96 13:40:00* Test Item Value Reference Range Interpretation Comments Urine Clarity (test code = 57527-0) SL CLOUDY CLEAR [facility] Hospitalpecific gravity of Urine by Test strip 2019-12-02 13:40:00* Test Item Value Reference Range Interpretation Comments Urine Specific [place] (test code = 5811-5) 1.020 1.010-1.02 5 [facility] WestUrine pH measurement by automated test xweut1642-32-89 13:40:00* Test Item Value Reference Range Interpretation Comments Urine pH (test code = 32166-5) 5.5 5-7 [facility] WestUrine leukocyte esterase detection by jyxsbuhb3457-64-22 13:40:00* Test Item Value Reference Range Interpretation Comments Urine Leukocyte Esterase (test code = 5799-2) NEGATIVE NEGATIVE [facility] WestUrine nitrite gmnniokni5055-74-32 13:40:00* Test Item Value Reference Range Interpretation Comments Urine Nitrite (test code = 49515-8) NEGATIVE NEGATIVE [facility] WestUrine protein measurement by test strip (mass/volume)2019-12-02 13:40:00* Test Item Value Reference Range Interpretation Comments Urine Protein (test code = 5804-0) 2+ NEGATIVE [facility] WestUrine glucose zpjdulnya3525-34-38 13:40:00* Test Item Value Reference Range Interpretation Comments Urine Glucose (UA) (test code = 2349-9) NEGATIVE NEGATIVE [facility] WestUrine ketones detection by automated test svnqr0000-01-83 13:40:00* Test Item Value Reference Range Interpretation Comments Urine Ketones (test code = 92940-1) NEGATIVE NEGATIVE [facility] WestUrine urobilinogen measurement by test strip (mass/volume)2019-12-02 13:40:00* Test Item Value Reference Range Interpretation Comments Urine Urobilinogen (test code = 46078-1) 1 mg/dL 0.2-1 [facility] WestUrine total bilirubin measurement (mass/volume)2019-12-02 13:40:00* Test Item Value Reference Range Interpretation Comments Urine Bilirubin (test code = 1978-6) NEGATIVE NEGATIVE [facility] WestUrine erythrocytes asenavhdh5858-54-29 13:40:00* Test Item Value Reference Range Interpretation Comments Urine Blood (test code = 96183-4) MODERATE NEGATIVE [facility] WestAutomated urine sediment leukocyte count by microscopy (number/high power field)2019-12-02 13:40:00* Test Item Value Reference Range Interpretation Comments Urine WBC (test code = 5821-4) NONE /[HPF] 0-5 [facility] WestErythrocytes detection in urine sediment by light iahtghqohb5472-39-57 13:40:00* Test Item Value Reference Range Interpretation Comments Urine RBC (test code = 09189-5) 6-10 /[HPF] 0-5 [facility] WestBacteria detection in urine sediment by light kbqfenkutq5424-11-74 13:40:00* Test Item Value Reference Range Interpretation Comments Urine Bacteria (test code = 47339-2) MODERATE /[HPF] NONE [facility] WestEpithelial cells detection in urine sediment by light ikfjtgjrgq4822-06-57 13:40:00* Test Item Value Reference Range Interpretation Comments Urine Epithelial Cells (test code = 99573-5) FEW /[LPF] NONE [facility] Hospitalerum or plasma sodium measurement (moles/volume)2019-12-02 13:40:00* Test Item Value Reference Range Interpretation Comments Sodium Level (test code = 2951-2) 160 mmol/L 136-145 [facility] Hospitalerum or plasma potassium measurement (moles/volume)2019-12-02 13:40:00* Test Item Value Reference Range Interpretation Comments Potassium Level (test code = 2823-3) 4.6 mmol/L 3.5-5.1 [facility] Hospitalerum or plasma chloride measurement (moles/volume)2019-12-02 13:40:00* Test Item Value Reference Range Interpretation Comments Chloride Level (test code = 2075-0) 121 mmol/L 98-107 [facility] Hospitalerum or plasma carbon dioxide, total measurement (moles/volume)2019-12-02 13:40:00* Test Item Value Reference Range Interpretation Comments Carbon Dioxide Level (test code = 2028-9) 29 mmol/L 22-29 [facility] Hospitalerum or plasma anion ixq6294-40-62 13:40:00* Test Item Value Reference Range Interpretation Comments Anion Gap (test code = 39776-1) 14.6 mmol/L 8-16 [facility] Hospitalerum or plasma urea nitrogen measurement (mass/volume)2019-12-02 13:40:00* Test Item Value Reference Range Interpretation Comments Blood Urea Nitrogen (test code = 3094-0) 34 mg/dL 7-26 [facility] Hospitalerum or plasma creatinine measurement (mass/volume)2019-12-02 13:40:00* Test Item Value Reference Range Interpretation Comments Creatinine (test code = 2160-0) 0.70 mg/dL 0.72-1.25 [facility] Hospitalerum or plasma urea nitrogen/creatinine mass leute3376-29-03 13:40:00* Test Item Value Reference Range Interpretation Comments BUN/Creatinine Ratio (test code = 3097-3) 49 6-25 [facility] WestEstimated glomerular filtration rate (GFR) kdfmpkaulouao9249-40-76 13:40:00* Test Item Value Reference Range Interpretation Comments Estimat Glomerular Filtration Rate (test code = 818305170) > 60 mL/ min >60 Ranges were taken from the National Kidney Disease Education Program and the [facility] literature.Reference ranges:60 or greater: Gbsmts17-89 ( for 3 consecutive months): Chronic kidney disease 15 or less: Kidney failureHCA [facility] Healthcare WestGlucose mxdqacrfavo0117-39-51 13:40:00* Test Item Value Reference Range Interpretation Comments Glucose Level (test code = IGJ0990) 104 mg/dL 74-118 [facility] Hospitalerum or plasma calcium measurement (mass/volume)2019-12-02 13:40:00* Test Item Value Reference Range Interpretation Comments Calcium Level (test code = 64229-1) 8.6 mg/dL 8.4-10.2 [facility] Hospitalerum or plasma total bilirubin measurement (mass/volume)2019-12-02 13:40:00* Test Item Value Reference Range Interpretation Comments Total Bilirubin (test code = 1975-2) 0.4 mg/dL 0.2-1.2 [facility] WestFluoroscopic procedure less than one hour khgmyval7732-29-73 13:40:00* Test Item Value Reference Range Interpretation Comments Aspartate Amino Transf (AST/SGOT) (test code = Aspartate Amino Transf (AST/SGOT)) 61 [IU]/L 5-34 [facility] Hospitalerum or plasma alanine aminotransferase measurement (enzymatic activity/volume)2019-12-02 13:40:00* Test Item Value Reference Range Interpretation Comments Alanine Aminotransferase (ALT/SGPT) (test code = 1742-6) 67 [IU]/L 0-55 [facility] Hospitalerum or plasma protein measurement (mass/volume)2019-12-02 13:40:00* Test Item Value Reference Range Interpretation Comments Total Protein (test code = 2885-2) 7.9 g/dL 6.5-8.1 [facility] Hospitalerum or plasma albumin measurement (mass/volume)2019-12-02 13:40:00* Test Item Value Reference Range Interpretation Comments Albumin (test code = 1751-7) 2.9 g/dL 3.5-5.0 [facility] WestPlasma globulin measurement (mass/volume) 2019-12-02 13:40:00* Test Item Value Reference Range Interpretation Comments Globulin (test code = 31789-9) 5.0 g/dL 2.3-3.5 [facility] Hospitalerum or plasma albumin/globulin mass pfkqs7997-20-38 13:40:00* Test Item Value Reference Range Interpretation Comments Albumin/Globulin Ratio (test code = 1759-0) 0.6 0.8-2.0 [facility] Hospitalerum or plasma alkaline phosphatase measurement (enzymatic activity/volume)2019-12-02 13:40:00* Test Item Value Reference Range Interpretation Comments Alkaline Phosphatase (test code = 6768-6) 117 [IU]/L 40-150 [facility] Hospitalerum or plasma creatine kinase measurement (enzymatic activity/volume)2019-12-02 13:40:00* Test Item Value Reference Range Interpretation Comments Creatine Kinase (test code = 2157-6) 47 [IU]/L 30-200 [facility] Hospitalerum or plasma creatine kinase MB measurement (mass/volume)2019-12-02 13:40:00* Test Item Value Reference Range Interpretation Comments Creatine Kinase MB (test code = 44768-3) 0.60 ng/mL 0-5.0 [facility] WestTroponin I measurement by highly sensitive enzyme fypolxkjdvi4997-39-37 13:40:00* Test Item Value Reference Range Interpretation Comments Troponin I (test code = 42673-8) 0.002 ng/mL 0-0.300 [facility] WestFluoroscopic procedure less than one hour jlywmyow6263-99-41 13:00:00* Test Item Value Reference Range Interpretation Comments Lactic Acid Level (test code = Lactic Acid Level) 1.7 0.5- 2.0 [facility] WestFluoroscopic procedure less than one hour ohkfsdnw7079-99-37 13:00:00* Test Item Value Reference Range Interpretation Comments Lactic Acid Level (test code = Lactic Acid Level) 1.7 0.5- 2.0 [facility] WestBlood tyyxjws3039-90-64 13:00:00* Test Item Value Reference Range Interpretation Comments Blood Culture (test code = 80180938) NO GROWTH AFTER 5 DAYS, FINAL REPORT [facility] WestFluoroscopic procedure less than one hour fmspoagj0630-05-01 13:00:00* Test Item Value Reference Range Interpretation Comments Lactic Acid Level (test code = Lactic Acid Level) 1.7 0.5- 2.0 [facility] [facility] qqmatxk3324-65-63 13:00:00* Test Item Value Reference Range Interpretation Comments Blood Culture (test code = 43441665) NO GROWTH AFTER 5 DAYS, FINAL REPORT [facility] WestFluoroscopic procedure less than one hour wplkhrvo9574-84-74 13:00:00* Test Item Value Reference Range Interpretation Comments Lactic Acid Level (test code = Lactic Acid Level) 1.7 0.5- 2.0 [facility] uxssxpd0754-32-81 13:00:00* Test Item Value Reference Range Interpretation Comments Blood Culture (test code = 20523880) NO GROWTH AFTER 5 DAYS, FINAL REPORT [facility] WestB[facility] urine dabwtpr3983-56-90 12:42:00* Test Item Value Reference Range Interpretation Comments Urine Culture (test code = 630-4) ENTEROCOCCUS FAECALIS [facility] urine tcxznxz3676-47-36 12:42:00* Test Item Value Reference Range Interpretation Comments Urine Culture (test code = 630-4) ENTEROCOCCUS FAECALIS [facility] WestB[facility] urine efedsqo3564-43-12 12:42:00* Test Item Value Reference Range Interpretation Comments Urine Culture (test code = 630-4) ENTEROCOCCUS FAECALIS [facility] leukocytes automated count (number/volume)2019-12-02 12:40:00* Test Item Value Reference Range Interpretation Comments White Blood Count (test code = 6690-2) 5.19 4.8-10.8 [facility] erythrocytes automated count (number/volume)2019-12-02 12:40:00* Test Item Value Reference Range Interpretation Comments Red Blood Count (test code = 789-8) 4.39 4.3-5.7 [facility] hemoglobin measurement (moles/volume)2019-12-02 12:40:00* Test Item Value Reference Range Interpretation Comments Hemoglobin (test code = 81784-1) 12.6 14.0-18.0 [facility] WestAutom[facility] blood hematocrit (volume fraction)2019-12-02 12:40:00* Test Item Value Reference Range Interpretation Comments Hematocrit (test code = 4544-3) 43.1 38.2-49.6 [facility] WestAutomated erythrocyte mean corpuscular lpwopo4681-36-63 12:40:00* Test Item Value Reference Range Interpretation Comments Mean Corpuscular Volume (test code = 787-2) 98.2 81-99 [facility] WestAutomated erythrocyte mean corpuscular hemoglobin (mass per erythrocyte)2019-12-02 12:40:00* Test Item Value Reference Range Interpretation Comments Mean Corpuscular Hemoglobin (test code = 785-6) 28.7 28-32 [facility] WestAutomated erythrocyte mean corpuscular hemoglobin concentration measurement (mass/volume)2019-12-02 12:40:00* Test Item Value Reference Range Interpretation Comments Mean Corpuscular Hemoglobin Concent (test code = 786-4) 29.2 31-35 [facility] WestRDW KwzUk-Kxr4354-52-24 12:40:00* Test Item Value Reference Range Interpretation Comments Red Cell Distribution Width (test code = 20900-0) 13.4 11.7 -14.4 [facility] WestAutomated blood platelet count (count/volume)2019-12-02 12:40:00* Test Item Value Reference Range Interpretation Comments Platelet Count (test code = 777-3) 69 140-360 [facility] WestAutomated blood segmented neutrophil count as percentage of total bxqxbedgec0961-45-64 12:40:00* Test Item Value Reference Range Interpretation Comments Neutrophils (%) (Auto) (test code = 86471-3) 61.1 38.7-80.0 [facility] WestAutomated blood lymphocyte count as percentage ot total ihemmishnt2652-18-97 12:40:00* Test Item Value Reference Range Interpretation Comments Lymphocytes (%) (Auto) (test code = 736-9) 28.7 18.0-39.1 [facility] WestAutomated blood monocyte count as percentage of total tytsmimgdf2623-96-96 12:40:00* Test Item Value Reference Range Interpretation Comments Monocytes (%) (Auto) (test code = 5905-5) 9.4 4.4-11.3 [facility] WestAutomated blood eosinophil count as percentage of total fyrovhiekw7038-93-11 12:40:00* Test Item Value Reference Range Interpretation Comments Eosinophils (%) (Auto) (test code = 713-8) 0.2 0.0-6.0 [facility] WestAutomated blood basophil count as percentage of total manitgbzfr0063-79-30 12:40:00* Test Item Value Reference Range Interpretation Comments Basophils (%) (Auto) (test code = 706-2) 0.2 0.0-1.0 [facility] WestFluoroscopic procedure less than one hour uxgalxfr9913-51-12 12:40:00* Test Item Value Reference Range Interpretation Comments IM GRANULOCYTES % (test code = IM GRANULOCYTES %) 0.4 0.0- 1.0 [facility] WestAutomated blood neutrophil count 2019-12-02 12:40:00* Test Item Value Reference Range Interpretation Comments Neutrophils # (Auto) (test code = 751-8) 3.2 2.1-6.9 [facility] WestBlood lymphocytes count (number/volume) 2019-12-02 12:40:00* Test Item Value Reference Range Interpretation Comments Lymphocytes # (Auto) (test code = 51409-5) 1.5 1.0-3.2 [facility] monocytes automated count (number/volume)2019-12-02 12:40:00* Test Item Value Reference Range Interpretation Comments Monocytes # (Auto) (test code = 742-7) 0.5 0.2-0.8 [facility] WestAutomated blood eosinophil count 2019-12-02 12:40:00* Test Item Value Reference Range Interpretation Comments Eosinophils # (Auto) (test code = 711-2) 0.0 0.0-0.4 [facility] WestAutomated blood basophil count (count/volume)2019-12-02 12:40:00* Test Item Value Reference Range Interpretation Comments Basophils # (Auto) (test code = 704-7) 0.0 0.0-0.1 [facility] WestFluoroscopic procedure less than one hour tzawwcmq1270-42-73 12:40:00* Test Item Value Reference Range Interpretation Comments Absolute Immature Granulocyte (auto (mabel t code = Absolute Immature Granulocyte (auto) 0.02 0-0.1 [facility] WestProthrombin time (PT) in platelet poor plasma by coagulation cvsst5850-04-26 12:40:00* Test Item Value Reference Range Interpretation Comments Prothrombin Time (test code = 5902-2) 13.9 11.9-14.5 [facility] WestINR in Platelet poor plasma by Coagulation atzmi1467-89-12 12:40:00* Test Item Value Reference Range Interpretation Comments Prothromb Time International Ratio (test code = 6301-6) 1.02 Oral Anticoagulant Therapy INR Values:1. Low Intensity Therapy 1.5 - 2.02 . Moderate Intensity Therapy 2.0 - 3.03. High Intensity Therapy(1) 2.5 - 3. 54. High Intensity Therapy(2) 3.0 - 4.05. Panic Value INR > 5.0 [facility] WestActivated partial thromboplastin time (aPTT) in platelet poor plasma by coagulation qwslb4820-13-79 12:40:00* Test Item Value Reference Range Interpretation Comments Activated Partial Thromboplast Time (test code = 91934-9) 33.3 23.8-35.5 [facility] WestUrine color yzjpedagdajaa9475-66-47 12:40:00* Test Item Value Reference Range Interpretation Comments Urine Color (test code = 5778-6) STRAW YELLOW [facility] WestUrine bbvbdth6992-00-69 12:40:00* Test Item Value Reference Range Interpretation Comments Urine Clarity (test code = 97536-0) SL CLOUDY CLEAR [facility] by Test strip 2019-12-02 12:40:00* Test Item Value Reference Range Interpretation Comments Urine Specific [place] (test code = 5811-5) 1.020 1.010-1.02 5 [facility] WestU[facility] pH measurement by automated test eyyjf0389-87-01 12:40:00* Test Item Value Reference Range Interpretation Comments Urine pH (test code = 12165-3) 5.5 5-7 [facility] WestUrine leukocyte esterase detection by wpurezju6999-28-09 12:40:00* Test Item Value Reference Range Interpretation Comments Urine Leukocyte Esterase (test code = 5799-2) NEGATIVE NEGATIVE [facility] WestUrine nitrite fssprctzw2413-24-66 12:40:00* Test Item Value Reference Range Interpretation Comments Urine Nitrite (test code = 56816-3) NEGATIVE NEGATIVE [facility] WestUrine protein measurement by test strip (mass/volume)2019-12-02 12:40:00* Test Item Value Reference Range Interpretation Comments Urine Protein (test code = 5804-0) 2+ NEGATIVE [facility] WestUrine glucose ebsdgjbdk6627-95-00 12:40:00* Test Item Value Reference Range Interpretation Comments Urine Glucose (UA) (test code = 2349-9) NEGATIVE NEGATIVE [facility] WestUrine ketones detection by automated test ilquw0590-36-49 12:40:00* Test Item Value Reference Range Interpretation Comments Urine Ketones (test code = 79203-9) NEGATIVE NEGATIVE [facility] WestUrine urobilinogen measurement by test strip (mass/volume)2019-12-02 12:40:00* Test Item Value Reference Range Interpretation Comments Urine Urobilinogen (test code = 88406-9) 1 0.2-1 [facility] WestUrine total bilirubin measurement (mass/volume)2019-12-02 12:40:00* Test Item Value Reference Range Interpretation Comments Urine Bilirubin (test code = 1978-6) NEGATIVE NEGATIVE [facility] WestUrine erythrocytes kmxhnynwo4647-03-28 12:40:00* Test Item Value Reference Range Interpretation Comments Urine Blood (test code = 77622-1) MODERATE NEGATIVE [facility] WestAutomated urine sediment leukocyte count by microscopy (number/high power field)2019-12-02 12:40:00* Test Item Value Reference Range Interpretation Comments Urine WBC (test code = 5821-4) NONE 0-5 [facility] WestErythrocytes detection in urine sediment by light cotetqbvvq4208-87-68 12:40:00* Test Item Value Reference Range Interpretation Comments Urine RBC (test code = 33728-4) 6-10 0-5 [facility] WestBacteria detection in urine sediment by light pccbgfouiz3430-19-80 12:40:00* Test Item Value Reference Range Interpretation Comments Urine Bacteria (test code = 52561-3) MODERATE NONE [facility] WestEpithelial cells detection in urine sediment by light ujquysiehm3769-16-99 12:40:00* Test Item Value Reference Range Interpretation Comments Urine Epithelial Cells (test code = 77786-1) FEW NONE [facility] Hospitaler[facility] or plasma sodium measurement (moles/volume)2019-12-02 12:40:00* Test Item Value Reference Range Interpretation Comments Sodium Level (test code = 2951-2) 160 136-145 [facility] Hospitalerum or plasma potassium measurement (moles/volume)2019-12-02 12:40:00* Test Item Value Reference Range Interpretation Comments Potassium Level (test code = 2823-3) 4.6 3.5-5.1 [facility] Hospitalerum or plasma chloride measurement (moles/volume)2019-12-02 12:40:00* Test Item Value Reference Range Interpretation Comments Chloride Level (test code = 2075-0) 121 98-107 [facility] Hospitalerum or plasma carbon dioxide, total measurement (moles/volume)2019-12-02 12:40:00* Test Item Value Reference Range Interpretation Comments Carbon Dioxide Level (test code = 2028-9) 29 22-29 [facility] Hospitalerum or plasma anion jqy2760-70-17 12:40:00* Test Item Value Reference Range Interpretation Comments Anion Gap (test code = 95115-2) 14.6 8-16 [facility] Hospitaler[facility] or plasma urea nitrogen measurement (mass/volume)2019-12-02 12:40:00* Test Item Value Reference Range Interpretation Comments Blood Urea Nitrogen (test code = 3094-0) 34 7-26 [facility] Hospitalerum or plasma creatinine measurement (mass/volume)2019-12-02 12:40:00* Test Item Value Reference Range Interpretation Comments Creatinine (test code = 2160-0) 0.70 0.72-1.25 [facility] Hospitalerum or plasma urea nitrogen/creatinine mass pdegg2083-10-27 12:40:00* Test Item Value Reference Range Interpretation Comments BUN/Creatinine Ratio (test code = 3097-3) 49 6-25 [facility] WestEstimated glomerular filtration rate (GFR) ynjxceuuqowio2648-87-74 12:40:00* Test Item Value Reference Range Interpretation Comments Estimat Glomerular Filtration Rate (test code = 065438915) > 60 >60 Ranges were taken from the National Kidney Disease Education Program and the [facility] literature.Reference ranges:60 or greater: Yqbbff74-42 ( for 3 consecutive months): Chronic kidney disease 15 or less: Kidney failureHCA [facility] Healthcare WestGlucose yiqsrlfqkdo9325-57-28 12:40:00* Test Item Value Reference Range Interpretation Comments Glucose Level (test code = MXK7957) 104 74-118 [facility] Hospitalerum or plasma calcium measurement (mass/volume)2019-12-02 12:40:00* Test Item Value Reference Range Interpretation Comments Calcium Level (test code = 64699-5) 8.6 8.4-10.2 [facility] Hospitalerum or plasma total bilirubin measurement (mass/volume)2019-12-02 12:40:00* Test Item Value Reference Range Interpretation Comments Total Bilirubin (test code = 1975-2) 0.4 0.2-1.2 [facility] WestFluoroscopic procedure less than one hour yafmwpic7315-36-48 12:40:00* Test Item Value Reference Range Interpretation Comments Aspartate Amino Transf (AST/SGOT) (test code = Aspartate Amino Transf (AST/SGOT)) 61 5-34 [facility] Hospitalerum or plasma alanine aminotransferase measurement (enzymatic activity/volume)2019-12-02 12:40:00* Test Item Value Reference Range Interpretation Comments Alanine Aminotransferase (ALT/SGPT) (test code = 1742-6) 67 0-55 [facility] Hospitalerum or plasma protein measurement (mass/volume)2019-12-02 12:40:00* Test Item Value Reference Range Interpretation Comments Total Protein (test code = 2885-2) 7.9 6.5-8.1 [facility] Hospitalerum or plasma albumin measurement (mass/volume)2019-12-02 12:40:00* Test Item Value Reference Range Interpretation Comments Albumin (test code = 1751-7) 2.9 3.5-5.0 [facility] WestPlasma globulin measurement (mass/volume) 2019-12-02 12:40:00* Test Item Value Reference Range Interpretation Comments Globulin (test code = 34919-9) 5.0 2.3-3.5 [facility]er[facility] or plasma albumin/globulin mass vpypg1027-33-76 12:40:00* Test Item Value Reference Range Interpretation Comments Albumin/Globulin Ratio (test code = 1759-0) 0.6 0.8-2.0 [facility] Hospitaler[facility] or plasma alkaline phosphatase measurement (enzymatic activity/volume)2019-12-02 12:40:00* Test Item Value Reference Range Interpretation Comments Alkaline Phosphatase (test code = 6768-6) 117 40-150 [facility] Hospitalerum or plasma creatine kinase measurement (enzymatic activity/volume)2019-12-02 12:40:00* Test Item Value Reference Range Interpretation Comments Creatine Kinase (test code = 2157-6) 47 30-200 [facility] Hospitalerum or plasma creatine kinase MB measurement (mass/volume)2019-12-02 12:40:00* Test Item Value Reference Range Interpretation Comments Creatine Kinase MB (test code = 05879-2) 0.60 0-5.0 [facility] WestTroponin I measurement by highly sensitive enzyme ldxrbrjgdcn8819-29-57 12:40:00* Test Item Value Reference Range Interpretation Comments Troponin I (test code = 40773-4) 0.002 0-0.300 [facility] WestBlood leukocytes automated count (number/volume)2019-12-02 12:40:00* Test Item Value Reference Range Interpretation Comments White Blood Count (test code = 6690-2) 5.19 4.8-10.8 [facility] WestBlood erythrocytes automated count (number/volume)2019-12-02 12:40:00* Test Item Value Reference Range Interpretation Comments Red Blood Count (test code = 789-8) 4.39 4.3-5.7 [facility] WestBlood hemoglobin measurement (moles/volume)2019-12-02 12:40:00* Test Item Value Reference Range Interpretation Comments Hemoglobin (test code = 81968-3) 12.6 14.0-18.0 [facility] WestAutomated blood hematocrit (volume fraction)2019-12-02 12:40:00* Test Item Value Reference Range Interpretation Comments Hematocrit (test code = 4544-3) 43.1 38.2-49.6 [facility] WestAutomated erythrocyte mean corpuscular ldvfps3183-99-09 12:40:00* Test Item Value Reference Range Interpretation Comments Mean Corpuscular Volume (test code = 787-2) 98.2 81-99 [facility] WestAutomated erythrocyte mean corpuscular hemoglobin (mass per erythrocyte)2019-12-02 12:40:00* Test Item Value Reference Range Interpretation Comments Mean Corpuscular Hemoglobin (test code = 785-6) 28.7 28-32 [facility] WestAutomated erythrocyte mean corpuscular hemoglobin concentration measurement (mass/volume)2019-12-02 12:40:00* Test Item Value Reference Range Interpretation Comments Mean Corpuscular Hemoglobin Concent (test code = 786-4) 29.2 31-35 [facility] WestRDW FkrLx-Svc1783-51-24 12:40:00* Test Item Value Reference Range Interpretation Comments Red Cell Distribution Width (test code = 01922-6) 13.4 11.7 -14.4 [facility] WestAutomated blood platelet count (count/volume)2019-12-02 12:40:00* Test Item Value Reference Range Interpretation Comments Platelet Count (test code = 777-3) 69 140-360 [facility] WestAut[facility] hospitaled blood segmented neutrophil count as percentage of total peaycvxuas9766-72-77 12:40:00* Test Item Value Reference Range Interpretation Comments Neutrophils (%) (Auto) (test code = 00807-7) 61.1 38.7-80.0 [facility] WestAutomated blood lymphocyte count as percentage ot total yzfxwnxphv3037-91-60 12:40:00* Test Item Value Reference Range Interpretation Comments Lymphocytes (%) (Auto) (test code = 736-9) 28.7 18.0-39.1 [facility] WestAutomated blood monocyte count as percentage of total cartmrerkq6639-87-36 12:40:00* Test Item Value Reference Range Interpretation Comments Monocytes (%) (Auto) (test code = 5905-5) 9.4 4.4-11.3 [facility] WestAutomated blood eosinophil count as percentage of total htfheefwnd5451-30-46 12:40:00* Test Item Value Reference Range Interpretation Comments Eosinophils (%) (Auto) (test code = 713-8) 0.2 0.0-6.0 [facility] WestAutomated blood basophil count as percentage of total pwwvblyvop7503-29-17 12:40:00* Test Item Value Reference Range Interpretation Comments Basophils (%) (Auto) (test code = 706-2) 0.2 0.0-1.0 [facility] WestFluoroscopic procedure less than one hour ksedrzyr8726-78-30 12:40:00* Test Item Value Reference Range Interpretation Comments IM GRANULOCYTES % (test code = IM GRANULOCYTES %) 0.4 0.0- 1.0 [facility] WestAutomated blood neutrophil count 2019-12-02 12:40:00* Test Item Value Reference Range Interpretation Comments Neutrophils # (Auto) (test code = 751-8) 3.2 2.1-6.9 [facility] WestBlood lymphocytes count (number/volume) 2019-12-02 12:40:00* Test Item Value Reference Range Interpretation Comments Lymphocytes # (Auto) (test code = 94015-3) 1.5 1.0-3.2 [facility] WestBlood monocytes automated count (number/volume)2019-12-02 12:40:00* Test Item Value Reference Range Interpretation Comments Monocytes # (Auto) (test code = 742-7) 0.5 0.2-0.8 [facility] WestAutomated blood eosinophil count 2019-12-02 12:40:00* Test Item Value Reference Range Interpretation Comments Eosinophils # (Auto) (test code = 711-2) 0.0 0.0-0.4 [facility] WestAutomated blood basophil count (count/volume)2019-12-02 12:40:00* Test Item Value Reference Range Interpretation Comments Basophils # (Auto) (test code = 704-7) 0.0 0.0-0.1 [facility] WestFluoroscopic procedure less than one hour bvhmhstf1621-93-24 12:40:00* Test Item Value Reference Range Interpretation Comments Absolute Immature Granulocyte (auto (mabel t code = Absolute Immature Granulocyte (auto) 0.02 0-0.1 [facility] WestProthrombin time (PT) in platelet poor plasma by coagulation vbgsi7992-35-87 12:40:00* Test Item Value Reference Range Interpretation Comments Prothrombin Time (test code = 5902-2) 13.9 11.9-14.5 [facility] WestINR in Platelet poor plasma by Coagulation qsvpl0050-66-74 12:40:00* Test Item Value Reference Range Interpretation Comments Prothromb Time International Ratio (test code = 6301-6) 1.02 Oral Anticoagulant Therapy INR Values:1. Low Intensity Therapy 1.5 - 2.02 . Moderate Intensity Therapy 2.0 - 3.03. High Intensity Therapy(1) 2.5 - 3. 54. High Intensity Therapy(2) 3.0 - 4.05. Panic Value INR > 5.0 [facility] WestActivated partial thromboplastin time (aPTT) in platelet poor plasma by coagulation rfoha5201-34-20 12:40:00* Test Item Value Reference Range Interpretation Comments Activated Partial Thromboplast Time (test code = 33610-2) 33.3 23.8-35.5 [facility] WestUrine color lsjuhyuuevqfy9256-78-98 12:40:00* Test Item Value Reference Range Interpretation Comments Urine Color (test code = 5778-6) STRAW YELLOW [facility] WestUrine fgmfsgb5381-44-55 12:40:00* Test Item Value Reference Range Interpretation Comments Urine Clarity (test code = 93554-5) SL CLOUDY CLEAR [facility] Hospitalpecific gravity of Urine by Test strip 2019-12-02 12:40:00* Test Item Value Reference Range Interpretation Comments Urine Specific [place] (test code = 5811-5) 1.020 1.010-1.02 5 [facility] WestUrine pH measurement by automated test xsjaz0129-94-08 12:40:00* Test Item Value Reference Range Interpretation Comments Urine pH (test code = 18267-6) 5.5 5-7 [facility] WestUrine leukocyte esterase detection by idrnozoa2378-34-97 12:40:00* Test Item Value Reference Range Interpretation Comments Urine Leukocyte Esterase (test code = 5799-2) NEGATIVE NEGATIVE [facility] WestUrine nitrite hejpdmufm4696-39-55 12:40:00* Test Item Value Reference Range Interpretation Comments Urine Nitrite (test code = 05305-8) NEGATIVE NEGATIVE [facility] WestUrine protein measurement by test strip (mass/volume)2019-12-02 12:40:00* Test Item Value Reference Range Interpretation Comments Urine Protein (test code = 5804-0) 2+ NEGATIVE [facility] WestUrine glucose rlnrjbtjx9553-98-98 12:40:00* Test Item Value Reference Range Interpretation Comments Urine Glucose (UA) (test code = 2349-9) NEGATIVE NEGATIVE [facility] WestUrine ketones detection by automated test iyeio2196-88-39 12:40:00* Test Item Value Reference Range Interpretation Comments Urine Ketones (test code = 41505-3) NEGATIVE NEGATIVE [facility] WestUrine urobilinogen measurement by test strip (mass/volume)2019-12-02 12:40:00* Test Item Value Reference Range Interpretation Comments Urine Urobilinogen (test code = 61883-1) 1 0.2-1 [facility] WestUrine total bilirubin measurement (mass/volume)2019-12-02 12:40:00* Test Item Value Reference Range Interpretation Comments Urine Bilirubin (test code = 1978-6) NEGATIVE NEGATIVE [facility] WestUrine erythrocytes qcmiahhjk0663-60-47 12:40:00* Test Item Value Reference Range Interpretation Comments Urine Blood (test code = 21609-9) MODERATE NEGATIVE [facility] WestAutomated urine sediment leukocyte count by microscopy (number/high power field)2019-12-02 12:40:00* Test Item Value Reference Range Interpretation Comments Urine WBC (test code = 5821-4) NONE 0-5 [facility] WestErythrocytes detection in urine sediment by light xgvljfxrgr9865-98-09 12:40:00* Test Item Value Reference Range Interpretation Comments Urine RBC (test code = 78032-0) 6-10 0-5 [facility] WestBacteria detection in urine sediment by light rmsmsmgydm5880-58-34 12:40:00* Test Item Value Reference Range Interpretation Comments Urine Bacteria (test code = 54122-7) MODERATE NONE [facility] WestEpithelial cells detection in urine sediment by light dqzcmyogyt6805-04-04 12:40:00* Test Item Value Reference Range Interpretation Comments Urine Epithelial Cells (test code = 91094-7) FEW NONE [facility]er[facility] or plasma sodium measurement (moles/volume)2019-12-02 12:40:00* Test Item Value Reference Range Interpretation Comments Sodium Level (test code = 2951-2) 160 136-145 [facility] Hospitalerum or plasma potassium measurement (moles/volume)2019-12-02 12:40:00* Test Item Value Reference Range Interpretation Comments Potassium Level (test code = 2823-3) 4.6 3.5-5.1 [facility] Hospitalerum or plasma chloride measurement (moles/volume)2019-12-02 12:40:00* Test Item Value Reference Range Interpretation Comments Chloride Level (test code = 2075-0) 121 98-107 [facility] [facility] carbon dioxide, total measurement (moles/volume)2019-12-02 12:40:00* Test Item Value Reference Range Interpretation Comments Carbon Dioxide Level (test code = 2028-9) 29 22-29 [facility] anion xrj4870-29-09 12:40:00* Test Item Value Reference Range Interpretation Comments Anion Gap (test code = 88425-5) 14.6 8-16 [facility] urea nitrogen measurement (mass/volume)2019-12-02 12:40:00* Test Item Value Reference Range Interpretation Comments Blood Urea Nitrogen (test code = 3094-0) 34 7-26 [facility] creatinine measurement (mass/volume)2019-12-02 12:40:00* Test Item Value Reference Range Interpretation Comments Creatinine (test code = 2160-0) 0.70 0.72-1.25 [facility] urea nitrogen/creatinine mass wlxzv2760-42-39 12:40:00* Test Item Value Reference Range Interpretation Comments BUN/Creatinine Ratio (test code = 3097-3) 49 6-25 [facility] WestEstimated glomerular filtration rate (GFR) avpxqyaywsmmc9156-55-92 12:40:00* Test Item Value Reference Range Interpretation Comments Estimat Glomerular Filtration Rate (test code = 675216082) > 60 >60 Ranges were taken from the National Kidney Disease Education Program and the [facility] literature.Reference ranges:60 or greater: [id number] ( for 3 consecutive months): Chronic kidney disease 15 or less: Kidney failureHCA [facility] Healthcare WestGlucose lzqlcmnomjy5620-87-75 12:40:00* Test Item Value Reference Range Interpretation Comments Glucose Level (test code = YZQ9082) 104 74-118 [facility] calcium measurement (mass/volume)2019-12-02 12:40:00* Test Item Value Reference Range Interpretation Comments Calcium Level (test code = 00124-1) 8.6 8.4-10.2 [facility] total bilirubin measurement (mass/volume)2019-12-02 12:40:00* Test Item Value Reference Range Interpretation Comments Total Bilirubin (test code = 1975-2) 0.4 0.2-1.2 [facility] WestFluoroscopic procedure less than one hour wefykesl6293-17-71 12:40:00* Test Item Value Reference Range Interpretation Comments Aspartate Amino Transf (AST/SGOT) (test code = Aspartate Amino Transf (AST/SGOT)) 61 5-34 [facility]er[facility] alanine aminotransferase measurement (enzymatic activity/volume)2019-12-02 12:40:00* Test Item Value Reference Range Interpretation Comments Alanine Aminotransferase (ALT/SGPT) (test code = 1742-6) 67 0-55 [facility] protein measurement (mass/volume)2019-12-02 12:40:00* Test Item Value Reference Range Interpretation Comments Total Protein (test code = 2885-2) 7.9 6.5-8.1 [facility] albumin measurement (mass/volume)2019-12-02 12:40:00* Test Item Value Reference Range Interpretation Comments Albumin (test code = 1751-7) 2.9 3.5-5.0 [facility] WestPlasma globulin measurement (mass/volume) 2019-12-02 12:40:00* Test Item Value Reference Range Interpretation Comments Globulin (test code = 54419-5) 5.0 2.3-3.5 [facility]er[facility] albumin/globulin mass eyaxn5270-75-65 12:40:00* Test Item Value Reference Range Interpretation Comments Albumin/Globulin Ratio (test code = 1759-0) 0.6 0.8-2.0 [facility]er[facility] alkaline phosphatase measurement (enzymatic activity/volume)2019-12-02 12:40:00* Test Item Value Reference Range Interpretation Comments Alkaline Phosphatase (test code = 6768-6) 117 40-150 [facility]er[facility] plasma creatine kinase measurement (enzymatic activity/volume)2019-12-02 12:40:00* Test Item Value Reference Range Interpretation Comments Creatine Kinase (test code = 2157-6) 47 30-200 [facility]er[facility] or plasma creatine kinase MB measurement (mass/volume)2019-12-02 12:40:00* Test Item Value Reference Range Interpretation Comments Creatine Kinase MB (test code = 95265-7) 0.60 0-5.0 [facility] WestTroponin I measurement by highly sensitive enzyme ymdcfleasxf9735-77-70 12:40:00* Test Item Value Reference Range Interpretation Comments Troponin I (test code = 74089-1) 0.002 0-0.300 [facility] WestBlood leukocytes automated count (number/volume)2019-12-02 12:40:00* Test Item Value Reference Range Interpretation Comments White Blood Count (test code = 6690-2) 5.19 4.8-10.8 [facility] WestBlood erythrocytes automated count (number/volume)2019-12-02 12:40:00* Test Item Value Reference Range Interpretation Comments Red Blood Count (test code = 789-8) 4.39 4.3-5.7 [facility] WestBlood hemoglobin measurement (moles/volume)2019-12-02 12:40:00* Test Item Value Reference Range Interpretation Comments Hemoglobin (test code = 55646-5) 12.6 14.0-18.0 [facility] WestAutomated blood hematocrit (volume fraction)2019-12-02 12:40:00* Test Item Value Reference Range Interpretation Comments Hematocrit (test code = 4544-3) 43.1 38.2-49.6 [facility] WestAutomated erythrocyte mean corpuscular wdiktx2891-25-05 12:40:00* Test Item Value Reference Range Interpretation Comments Mean Corpuscular Volume (test code = 787-2) 98.2 81-99 [facility] WestAutomated erythrocyte mean corpuscular hemoglobin (mass per erythrocyte)2019-12-02 12:40:00* Test Item Value Reference Range Interpretation Comments Mean Corpuscular Hemoglobin (test code = 785-6) 28.7 28-32 [facility] WestAutomated erythrocyte mean corpuscular hemoglobin concentration measurement (mass/volume)2019-12-02 12:40:00* Test Item Value Reference Range Interpretation Comments Mean Corpuscular Hemoglobin Concent (test code = 786-4) 29.2 31-35 [facility] WestRDW IxsCk-Bmf6419-26-24 12:40:00* Test Item Value Reference Range Interpretation Comments Red Cell Distribution Width (test code = 80685-4) 13.4 11.7 -14.4 [facility] WestAutomated blood platelet count (count/volume)2019-12-02 12:40:00* Test Item Value Reference Range Interpretation Comments Platelet Count (test code = 777-3) 69 140-360 [facility] Northwested blood segmented neutrophil count as percentage of total auqgxotpih6072-20-68 12:40:00* Test Item Value Reference Range Interpretation Comments Neutrophils (%) (Auto) (test code = 89537-8) 61.1 38.7-80.0 [facility] WestAutomated blood lymphocyte count as percentage ot total dktzesyrkv9638-98-88 12:40:00* Test Item Value Reference Range Interpretation Comments Lymphocytes (%) (Auto) (test code = 736-9) 28.7 18.0-39.1 [facility] WestAutomated blood monocyte count as percentage of total iweenhvjbf5381-73-16 12:40:00* Test Item Value Reference Range Interpretation Comments Monocytes (%) (Auto) (test code = 5905-5) 9.4 4.4-11.3 [facility] WestAutomated blood eosinophil count as percentage of total fzpdphauwl0502-59-37 12:40:00* Test Item Value Reference Range Interpretation Comments Eosinophils (%) (Auto) (test code = 713-8) 0.2 0.0-6.0 [facility] WestAutomated blood basophil count as percentage of total jdrcdxhxje3446-63-78 12:40:00* Test Item Value Reference Range Interpretation Comments Basophils (%) (Auto) (test code = 706-2) 0.2 0.0-1.0 [facility] WestFluoroscopic procedure less than one hour biqhzevq2503-19-18 12:40:00* Test Item Value Reference Range Interpretation Comments IM GRANULOCYTES % (test code = IM GRANULOCYTES %) 0.4 0.0- 1.0 [facility] WestAutomated blood neutrophil count 2019-12-02 12:40:00* Test Item Value Reference Range Interpretation Comments Neutrophils # (Auto) (test code = 751-8) 3.2 2.1-6.9 [facility] WestBlood lymphocytes count (number/volume) 2019-12-02 12:40:00* Test Item Value Reference Range Interpretation Comments Lymphocytes # (Auto) (test code = 53489-6) 1.5 1.0-3.2 [facility] WestBlood monocytes automated count (number/volume)2019-12-02 12:40:00* Test Item Value Reference Range Interpretation Comments Monocytes # (Auto) (test code = 742-7) 0.5 0.2-0.8 [facility] WestAutomated blood eosinophil count 2019-12-02 12:40:00* Test Item Value Reference Range Interpretation Comments Eosinophils # (Auto) (test code = 711-2) 0.0 0.0-0.4 [facility] WestAutomated blood basophil count (count/volume)2019-12-02 12:40:00* Test Item Value Reference Range Interpretation Comments Basophils # (Auto) (test code = 704-7) 0.0 0.0-0.1 [facility] WestFluoroscopic procedure less than one hour nilpnrsr3866-06-36 12:40:00* Test Item Value Reference Range Interpretation Comments Absolute Immature Granulocyte (auto (mabel t code = Absolute Immature Granulocyte (auto) 0.02 0-0.1 [facility] WestProthrombin time (PT) in platelet poor plasma by coagulation gsixg5091-26-33 12:40:00* Test Item Value Reference Range Interpretation Comments Prothrombin Time (test code = 5902-2) 13.9 11.9-14.5 [facility] WestINR in Platelet poor plasma by Coagulation hbrbm6317-20-33 12:40:00* Test Item Value Reference Range Interpretation Comments Prothromb Time International Ratio (test code = 6301-6) 1.02 Oral Anticoagulant Therapy INR Values:1. Low Intensity Therapy 1.5 - 2.02 . Moderate Intensity Therapy 2.0 - 3.03. High Intensity Therapy(1) 2.5 - 3. 54. High Intensity Therapy(2) 3.0 - 4.05. Panic Value INR > 5.0 [facility] WestActivated partial thromboplastin time (aPTT) in platelet poor plasma by coagulation tayau8635-45-60 12:40:00* Test Item Value Reference Range Interpretation Comments Activated Partial Thromboplast Time (test code = 79659-2) 33.3 23.8-35.5 [facility] WestUrine color hxpqwmjbenkfa8866-16-68 12:40:00* Test Item Value Reference Range Interpretation Comments Urine Color (test code = 5778-6) STRAW YELLOW [facility] WestUrine nrbbhiy5957-60-90 12:40:00* Test Item Value Reference Range Interpretation Comments Urine Clarity (test code = 77404-4) SL CLOUDY CLEAR [facility] Hospitalpecific gravity of Urine by Test strip 2019-12-02 12:40:00* Test Item Value Reference Range Interpretation Comments Urine Specific [place] (test code = 5811-5) 1.020 1.010-1.02 5 [facility] WestUrine pH measurement by automated test awfsv0846-54-47 12:40:00* Test Item Value Reference Range Interpretation Comments Urine pH (test code = 92016-2) 5.5 5-7 [facility] WestUrine leukocyte esterase detection by sxbccvtp1813-52-51 12:40:00* Test Item Value Reference Range Interpretation Comments Urine Leukocyte Esterase (test code = 5799-2) NEGATIVE NEGATIVE [facility] WestUrine nitrite etxnyzjfo0010-54-40 12:40:00* Test Item Value Reference Range Interpretation Comments Urine Nitrite (test code = 98227-0) NEGATIVE NEGATIVE [facility] WestUrine protein measurement by test strip (mass/volume)2019-12-02 12:40:00* Test Item Value Reference Range Interpretation Comments Urine Protein (test code = 5804-0) 2+ NEGATIVE [facility] WestUrine glucose vsbpbmgwy6373-14-40 12:40:00* Test Item Value Reference Range Interpretation Comments Urine Glucose (UA) (test code = 2349-9) NEGATIVE NEGATIVE [facility] WestUrine ketones detection by automated test ycmpk1950-07-86 12:40:00* Test Item Value Reference Range Interpretation Comments Urine Ketones (test code = 09683-9) NEGATIVE NEGATIVE [facility] WestUrine urobilinogen measurement by test strip (mass/volume)2019-12-02 12:40:00* Test Item Value Reference Range Interpretation Comments Urine Urobilinogen (test code = 87557-0) 1 0.2-1 [facility] WestUrine total bilirubin measurement (mass/volume)2019-12-02 12:40:00* Test Item Value Reference Range Interpretation Comments Urine Bilirubin (test code = 1978-6) NEGATIVE NEGATIVE [facility] WestUrine erythrocytes dpruxnzqs9224-02-49 12:40:00* Test Item Value Reference Range Interpretation Comments Urine Blood (test code = 30692-8) MODERATE NEGATIVE [facility] WestAutomated urine sediment leukocyte count by microscopy (number/high power field)2019-12-02 12:40:00* Test Item Value Reference Range Interpretation Comments Urine WBC (test code = 5821-4) NONE 0-5 [facility] WestErythrocytes detection in urine sediment by light ajsxvjgtpb1334-59-85 12:40:00* Test Item Value Reference Range Interpretation Comments Urine RBC (test code = 46557-7) 6-10 0-5 [facility] WestBacteria detection in urine sediment by light sonfirxzlo6646-79-26 12:40:00* Test Item Value Reference Range Interpretation Comments Urine Bacteria (test code = 86991-1) MODERATE NONE [facility] WestEpithelial cells detection in urine sediment by light heixeozjyu0932-85-93 12:40:00* Test Item Value Reference Range Interpretation Comments Urine Epithelial Cells (test code = 51244-0) FEW NONE [facility]er[facility] sodium measurement (moles/volume)2019-12-02 12:40:00* Test Item Value Reference Range Interpretation Comments Sodium Level (test code = 2951-2) 160 136-145 [facility]er[facility] plasma potassium measurement (moles/volume)2019-12-02 12:40:00* Test Item Value Reference Range Interpretation Comments Potassium Level (test code = 2823-3) 4.6 3.5-5.1 [facility]er[facility] plasma chloride measurement (moles/volume)2019-12-02 12:40:00* Test Item Value Reference Range Interpretation Comments Chloride Level (test code = 2075-0) 121 98-107 [facility]er[facility] or plasma carbon dioxide, total measurement (moles/volume)2019-12-02 12:40:00* Test Item Value Reference Range Interpretation Comments Carbon Dioxide Level (test code = 2028-9) 29 22-29 [facility]er[facility] or plasma anion coh1599-68-02 12:40:00* Test Item Value Reference Range Interpretation Comments Anion Gap (test code = 85306-1) 14.6 8-16 [facility]er[facility] urea nitrogen measurement (mass/volume)2019-12-02 12:40:00* Test Item Value Reference Range Interpretation Comments Blood Urea Nitrogen (test code = 3094-0) 34 7-26 [facility]er[facility] plasma creatinine measurement (mass/volume)2019-12-02 12:40:00* Test Item Value Reference Range Interpretation Comments Creatinine (test code = 2160-0) 0.70 0.72-1.25 [facility]er[facility] plasma urea nitrogen/creatinine mass seoae7938-71-50 12:40:00* Test Item Value Reference Range Interpretation Comments BUN/Creatinine Ratio (test code = 3097-3) 49 6-25 [facility] WestEstimated glomerular filtration rate (GFR) xhmowybjxmwnl3121-63-18 12:40:00* Test Item Value Reference Range Interpretation Comments Estimat Glomerular Filtration Rate (test code = 710829823) > 60 >60 Ranges were taken from the National Kidney Disease Education Program and the [facility] literature.Reference ranges:60 or greater: Gkicup98-59 ( for 3 consecutive months): Chronic kidney disease 15 or less: Kidney failureHCA [facility] Healthcare WestGlucose kyeoepuqcor3133-99-37 12:40:00* Test Item Value Reference Range Interpretation Comments Glucose Level (test code = CLY1990) 104 74-118 [facility]er[facility] plasma calcium measurement (mass/volume)2019-12-02 12:40:00* Test Item Value Reference Range Interpretation Comments Calcium Level (test code = 28516-6) 8.6 8.4-10.2 [facility]er[facility] plasma total bilirubin measurement (mass/volume)2019-12-02 12:40:00* Test Item Value Reference Range Interpretation Comments Total Bilirubin (test code = 1975-2) 0.4 0.2-1.2 [facility] WestFluoroscopic procedure less than one hour yssxwagx0835-02-64 12:40:00* Test Item Value Reference Range Interpretation Comments Aspartate Amino Transf (AST/SGOT) (test code = Aspartate Amino Transf (AST/SGOT)) 61 5-34 [facility]er[facility] or plasma alanine aminotransferase measurement (enzymatic activity/volume)2019-12-02 12:40:00* Test Item Value Reference Range Interpretation Comments Alanine Aminotransferase (ALT/SGPT) (test code = 1742-6) 67 0-55 [facility]er[facility] or plasma protein measurement (mass/volume)2019-12-02 12:40:00* Test Item Value Reference Range Interpretation Comments Total Protein (test code = 2885-2) 7.9 6.5-8.1 [facility]er[facility] or plasma albumin measurement (mass/volume)2019-12-02 12:40:00* Test Item Value Reference Range Interpretation Comments Albumin (test code = 1751-7) 2.9 3.5-5.0 [facility] WestPlasma globulin measurement (mass/volume) 2019-12-02 12:40:00* Test Item Value Reference Range Interpretation Comments Globulin (test code = 51192-1) 5.0 2.3-3.5 [facility]er[facility] plasma albumin/globulin mass xizvx8401-98-51 12:40:00* Test Item Value Reference Range Interpretation Comments Albumin/Globulin Ratio (test code = 1759-0) 0.6 0.8-2.0 [facility]er[facility] or plasma alkaline phosphatase measurement (enzymatic activity/volume)2019-12-02 12:40:00* Test Item Value Reference Range Interpretation Comments Alkaline Phosphatase (test code = 6768-6) 117 40-150 [facility]er[facility] or plasma creatine kinase measurement (enzymatic activity/volume)2019-12-02 12:40:00* Test Item Value Reference Range Interpretation Comments Creatine Kinase (test code = 2157-6) 47 30-200 [facility]er[facility] or plasma creatine kinase MB measurement (mass/volume)2019-12-02 12:40:00* Test Item Value Reference Range Interpretation Comments Creatine Kinase MB (test code = 43322-3) 0.60 0-5.0 [facility] WestTroponin I measurement by highly sensitive enzyme zxpayeverzn6691-24-01 12:40:00* Test Item Value Reference Range Interpretation Comments Troponin I (test code = 78128-8) 0.002 0-0.300 [facility] WestBlood leukocytes automated count (number/volume)2019-12-02 12:40:00* Test Item Value Reference Range Interpretation Comments White Blood Count (test code = 6690-2) 5.19 4.8-10.8 [facility] WestBlredwood llc erythrocytes automated count (number/volume)2019-12-02 12:40:00* Test Item Value Reference Range Interpretation Comments Red Blood Count (test code = 789-8) 4.39 4.3-5.7 [facility] WestBlood hemoglobin measurement (moles/volume)2019-12-02 12:40:00* Test Item Value Reference Range Interpretation Comments Hemoglobin (test code = 74559-2) 12.6 14.0-18.0 [facility] WestAutomated blood hematocrit (volume fraction)2019-12-02 12:40:00* Test Item Value Reference Range Interpretation Comments Hematocrit (test code = 4544-3) 43.1 38.2-49.6 [facility] WestAutomated erythrocyte mean corpuscular dnvhhf1278-13-33 12:40:00* Test Item Value Reference Range Interpretation Comments Mean Corpuscular Volume (test code = 787-2) 98.2 81-99 [facility] WestAutomated erythrocyte mean corpuscular hemoglobin (mass per erythrocyte)2019-12-02 12:40:00* Test Item Value Reference Range Interpretation Comments Mean Corpuscular Hemoglobin (test code = 785-6) 28.7 28-32 [facility] WestAutomated erythrocyte mean corpuscular hemoglobin concentration measurement (mass/volume)2019-12-02 12:40:00* Test Item Value Reference Range Interpretation Comments Mean Corpuscular Hemoglobin Concent (test code = 786-4) 29.2 31-35 [facility] WestRDW JbeFu-Eoi1904-95-24 12:40:00* Test Item Value Reference Range Interpretation Comments Red Cell Distribution Width (test code = 17712-6) 13.4 11.7 -14.4 [facility] WestAutomated blood platelet count (count/volume)2019-12-02 12:40:00* Test Item Value Reference Range Interpretation Comments Platelet Count (test code = 777-3) 69 140-360 [facility] WestAutomated blood segmented neutrophil count as percentage of total ujisquecvr0052-41-33 12:40:00* Test Item Value Reference Range Interpretation Comments Neutrophils (%) (Auto) (test code = 07359-7) 61.1 38.7-80.0 [facility] WestAutomated blood lymphocyte count as percentage ot total oeiiordvkp3606-78-28 12:40:00* Test Item Value Reference Range Interpretation Comments Lymphocytes (%) (Auto) (test code = 736-9) 28.7 18.0-39.1 [facility] WestAutomated blood monocyte count as percentage of total mmlamuisfg6637-18-26 12:40:00* Test Item Value Reference Range Interpretation Comments Monocytes (%) (Auto) (test code = 5905-5) 9.4 4.4-11.3 [facility] WestAutcentral carol[facility] hospitaled blood eosinophil count as percentage of total vuarhtymfj9727-57-98 12:40:00* Test Item Value Reference Range Interpretation Comments Eosinophils (%) (Auto) (test code = 713-8) 0.2 0.0-6.0 [facility] WestAutomated blood basophil count as percentage of total splvjmcnws3729-08-13 12:40:00* Test Item Value Reference Range Interpretation Comments Basophils (%) (Auto) (test code = 706-2) 0.2 0.0-1.0 [facility] WestFluoroscopic procedure less than one hour hdpkddtw2873-78-12 12:40:00* Test Item Value Reference Range Interpretation Comments IM GRANULOCYTES % (test code = IM GRANULOCYTES %) 0.4 0.0- 1.0 [facility] WestAutomated blood neutrophil count 2019-12-02 12:40:00* Test Item Value Reference Range Interpretation Comments Neutrophils # (Auto) (test code = 751-8) 3.2 2.1-6.9 [facility] WestBlood lymphocytes count (number/volume) 2019-12-02 12:40:00* Test Item Value Reference Range Interpretation Comments Lymphocytes # (Auto) (test code = 61787-0) 1.5 1.0-3.2 [facility] WestBlood monocytes automated count (number/volume)2019-12-02 12:40:00* Test Item Value Reference Range Interpretation Comments Monocytes # (Auto) (test code = 742-7) 0.5 0.2-0.8 [facility] WestAutomated blood eosinophil count 2019-12-02 12:40:00* Test Item Value Reference Range Interpretation Comments Eosinophils # (Auto) (test code = 711-2) 0.0 0.0-0.4 [facility] WestAutomated blood basophil count (count/volume)2019-12-02 12:40:00* Test Item Value Reference Range Interpretation Comments Basophils # (Auto) (test code = 704-7) 0.0 0.0-0.1 [facility] WestFluoroscopic procedure less than one hour lqtgsxsd7856-02-30 12:40:00* Test Item Value Reference Range Interpretation Comments Absolute Immature Granulocyte (auto (mabel t code = Absolute Immature Granulocyte (auto) 0.02 0-0.1 [facility] WestProthrombin time (PT) in platelet poor plasma by coagulation dgymx3688-10-05 12:40:00* Test Item Value Reference Range Interpretation Comments Prothrombin Time (test code = 5902-2) 13.9 11.9-14.5 [facility] WestINR in Platelet poor plasma by Coagulation hurun2507-74-46 12:40:00* Test Item Value Reference Range Interpretation Comments Prothromb Time International Ratio (test code = 6301-6) 1.02 Oral Anticoagulant Therapy INR Values:1. Low Intensity Therapy 1.5 - 2.02 . Moderate Intensity Therapy 2.0 - 3.03. High Intensity Therapy(1) 2.5 - 3. 54. High Intensity Therapy(2) 3.0 - 4.05. Panic Value INR > 5.0 [facility] WestActivated partial thromboplastin time (aPTT) in platelet poor plasma by coagulation lsflj3851-97-98 12:40:00* Test Item Value Reference Range Interpretation Comments Activated Partial Thromboplast Time (test code = 93505-5) 33.3 23.8-35.5 [facility] WestUrine color qllvzenckrwlw3081-58-97 12:40:00* Test Item Value Reference Range Interpretation Comments Urine Color (test code = 5778-6) STRAW YELLOW [facility] WestUrine nfjjiiw1266-85-77 12:40:00* Test Item Value Reference Range Interpretation Comments Urine Clarity (test code = 05963-5) SL CLOUDY CLEAR [facility] Hospitalpecific gravity of Urine by Test strip 2019-12-02 12:40:00* Test Item Value Reference Range Interpretation Comments Urine Specific [place] (test code = 5811-5) 1.020 1.010-1.02 5 [facility] WestUrine pH measurement by automated test gntzi1363-31-98 12:40:00* Test Item Value Reference Range Interpretation Comments Urine pH (test code = 54105-7) 5.5 5-7 [facility] WestUrine leukocyte esterase detection by zwoymiyg9621-77-59 12:40:00* Test Item Value Reference Range Interpretation Comments Urine Leukocyte Esterase (test code = 5799-2) NEGATIVE NEGATIVE [facility] nitrite gbezskcdo9329-87-32 12:40:00* Test Item Value Reference Range Interpretation Comments Urine Nitrite (test code = 42819-5) NEGATIVE NEGATIVE [facility] protein measurement by test strip (mass/volume)2019-12-02 12:40:00* Test Item Value Reference Range Interpretation Comments Urine Protein (test code = 5804-0) 2+ NEGATIVE [facility]Urine glucose lvpinhkqt1193-59-74 12:40:00* Test Item Value Reference Range Interpretation Comments Urine Glucose (UA) (test code = 2349-9) NEGATIVE NEGATIVE [facility] WestUrine ketones detection by automated test [id number] 12:40:00* Test Item Value Reference Range Interpretation Comments Urine Ketones (test code = 14475-2) NEGATIVE NEGATIVE [facility] WestUrine urobilinogen measurement by test strip (mass/volume)2019-12-02 12:40:00* Test Item Value Reference Range Interpretation Comments Urine Urobilinogen (test code = 63567-0) 1 0.2-1 [facility] total bilirubin measurement (mass/volume)2019-12-02 12:40:00* Test Item Value Reference Range Interpretation Comments Urine Bilirubin (test code = 1978-6) NEGATIVE NEGATIVE [facility] WestUrine erythrocytes tkgivumpm0459-58-16 12:40:00* Test Item Value Reference Range Interpretation Comments Urine Blood (test code = 89999-4) MODERATE NEGATIVE [facility] WestAutomated urine sediment leukocyte count by microscopy (number/high power field)2019-12-02 12:40:00* Test Item Value Reference Range Interpretation Comments Urine WBC (test code = 5821-4) NONE 0-5 [facility] WestErythrocytes detection in urine sediment by light rnbrgmpyiy6382-59-37 12:40:00* Test Item Value Reference Range Interpretation Comments Urine RBC (test code = 35596-9) 6-10 0-5 [facility] WestBacteria detection in urine sediment by light dkhdjrxqoj6285-32-54 12:40:00* Test Item Value Reference Range Interpretation Comments Urine Bacteria (test code = 90641-8) MODERATE NONE [facility] WestEpithelial cells detection in urine sediment by light jiepfhmsrh4950-71-41 12:40:00* Test Item Value Reference Range Interpretation Comments Urine Epithelial Cells (test code = 57988-8) FEW NONE [facility] sodium measurement (moles/volume)2019-12-02 12:40:00* Test Item Value Reference Range Interpretation Comments Sodium Level (test code = 2951-2) 160 136-145 [facility] or plasma potassium measurement (moles/volume)2019-12-02 12:40:00* Test Item Value Reference Range Interpretation Comments Potassium Level (test code = 2823-3) 4.6 3.5-5.1 [facility] or plasma chloride measurement (moles/volume)2019-12-02 12:40:00* Test Item Value Reference Range Interpretation Comments Chloride Level (test code = 2075-0) 121 98-107 [facility]erum or plasma carbon dioxide, total measurement (moles/volume)2019-12-02 12:40:00* Test Item Value Reference Range Interpretation Comments Carbon Dioxide Level (test code = 2028-9) 29 22-29 [facility]um or plasma anion wyd4127-31-52 12:40:00* Test Item Value Reference Range Interpretation Comments Anion Gap (test code = 14758-8) 14.6 8-16 [facility] or plasma urea nitrogen measurement (mass/volume)2019-12-02 12:40:00* Test Item Value Reference Range Interpretation Comments Blood Urea Nitrogen (test code = 3094-0) 34 7-26 [facility]er[facility] or plasma creatinine measurement (mass/volume)2019-12-02 12:40:00* Test Item Value Reference Range Interpretation Comments Creatinine (test code = 2160-0) 0.70 0.72-1.25 [facility]um or plasma urea nitrogen/creatinine mass ftyid8462-11-79 12:40:00* Test Item Value Reference Range Interpretation Comments BUN/Creatinine Ratio (test code = 3097-3) 49 6-25 [facility] WestEstimated glomerular filtration rate (GFR) qrwyupofsxtnh4427-87-64 12:40:00* Test Item Value Reference Range Interpretation Comments Estimat Glomerular Filtration Rate (test code = 743771926) > 60 >60 Ranges were taken from the National Kidney Disease Education Program and the [facility] Foundation literature.Reference ranges:60 or greater: Rivtap96-67 ( for 3 consecutive months): Chronic kidney disease 15 or less: Kidney failureHCA [facility] Healthcare WestGlucose aobwdzuiwug4433-77-78 12:40:00* Test Item Value Reference Range Interpretation Comments Glucose Level (test code = IYU6023) 104 74-118 [facility]erum or plasma calcium measurement (mass/volume)2019-12-02 12:40:00* Test Item Value Reference Range Interpretation Comments Calcium Level (test code = 94615-4) 8.6 8.4-10.2 [facility] Hospitalerum or plasma total bilirubin measurement (mass/volume)2019-12-02 12:40:00* Test Item Value Reference Range Interpretation Comments Total Bilirubin (test code = 1975-2) 0.4 0.2-1.2 [facility] WestFluoroscopic procedure less than one hour batdbvzd1419-47-64 12:40:00* Test Item Value Reference Range Interpretation Comments Aspartate Amino Transf (AST/SGOT) (test code = Aspartate Amino Transf (AST/SGOT)) 61 5-34 [facility] Hospitalerum or plasma alanine aminotransferase measurement (enzymatic activity/volume)2019-12-02 12:40:00* Test Item Value Reference Range Interpretation Comments Alanine Aminotransferase (ALT/SGPT) (test code = 1742-6) 67 0-55 [facility] Hospitalerum or plasma protein measurement (mass/volume)2019-12-02 12:40:00* Test Item Value Reference Range Interpretation Comments Total Protein (test code = 2885-2) 7.9 6.5-8.1 [facility] Hospitalerum or plasma albumin measurement (mass/volume)2019-12-02 12:40:00* Test Item Value Reference Range Interpretation Comments Albumin (test code = 1751-7) 2.9 3.5-5.0 [facility] WestPlasma globulin measurement (mass/volume) 2019-12-02 12:40:00* Test Item Value Reference Range Interpretation Comments Globulin (test code = 09888-8) 5.0 2.3-3.5 [facility] Hospitalerum or plasma albumin/globulin mass sgafy0280-35-54 12:40:00* Test Item Value Reference Range Interpretation Comments Albumin/Globulin Ratio (test code = 1759-0) 0.6 0.8-2.0 [facility] Hospitalerum or plasma alkaline phosphatase measurement (enzymatic activity/volume)2019-12-02 12:40:00* Test Item Value Reference Range Interpretation Comments Alkaline Phosphatase (test code = 6768-6) 117 40-150 [facility] Hospitalerum or plasma creatine kinase measurement (enzymatic activity/volume)2019-12-02 12:40:00* Test Item Value Reference Range Interpretation Comments Creatine Kinase (test code = 2157-6) 47 30-200 [facility] Hospitalerum or plasma creatine kinase MB measurement (mass/volume)2019-12-02 12:40:00* Test Item Value Reference Range Interpretation Comments Creatine Kinase MB (test code = 04956-6) 0.60 0-5.0 [facility] WestTroponin I measurement by highly sensitive enzyme annduvvpggw8205-23-11 12:40:00* Test Item Value Reference Range Interpretation Comments Troponin I (test code = 48485-8) 0.002 0-0.300 [facility]- XR ABDOMEN AP 1 N9508-02-13 02:35:00 FAX: Cr Regan MD [phone] [place]: St: REG Name: VANESSA ANDREA [facility] : [birth year] Age/S: 44/M [address] [facility] Unit #: [id number] Loc: [place] [address] Phys: Cr Regan MD Acct: [id number] Dis Date: Status: REG ER PHONE #: [phone] Exam Date: 11/24/2019 0150 FAX #: [phone] Reason: g tube replacement EXAMS: CPT CODE: [id number] XR ABDOMEN AP 1 V 14688 Abdomen one view with contrast inj ection [...] RebeccaR.AL7 Orig P rint D/T: S: 11/24/2019 (0230) PAGE 1 Signed Report BASIC METABOLIC [id number] 06:58:00* Test Item Value Reference Range Interpretation [...] CA) 9.1 mg/dL 8.5-10.1 N BASIC METABOLIC WKVIE2547-69-05 06:53:00* Test Item Value Reference Range Interpretation [...] code = CA) mg/dL 8.5-10.1 BASIC METABOLIC [id number] 08:41:00* Test Item Value Reference Range Interpretation [...] mg/dL 8.5-10.1 N REFUSED LABS NOTIFIED NURSE [id number].YOLANDA.DB2 10/30/2000568820AOHOX METABOLIC PANEL 2019-10-31 08:23:00* Test Item Value [...] CA) mg/dL 8.5-10.1 REFUSED LABS NOTIFIED NURSE [id number].NUR.DB2 B-TYPE NATRIURETIC EKCRUVK0160-18-85 08:20:00* Test Item Value Reference Range Interpretation Comments B-TYPE NATRIURETIC PEPTIDE (test code = BNP) 33.00 pgram/mL 0-100 N PROTHROMBIN [id number] 08:15:00* Test Item Value Reference Range Interpretation [...] valves (2.5-3.5) PT REFUSED LABS NOTIFIED NURSE [id number].DB2 IS PATIENT ON ANTICO AGULANTS? NCOMMENTS TO SEAL MIXER: NEED FOR SURGERY 10/31/19ROMBOPLASTIN TIME [id number] 08:15:00* Test Item Value Reference Range Interpretation Comments THROMBOPLASTIN TIME PARTIAL (test code = PTT) 34.4 seconds 23.0-37. 0 N PT REFUSED LABS NOTIFIED NURSE [id number] IS PATIENT ON ANTICO AGULANTS? NCOMMENTS TO SEAL MIXER: NEED FOR SURGERY 10/31/19CBC W/AUTO DIFF 2019-10-31 [...] 0.0-0.1 N PT REFUSED LABS NOTIFIED NURSE NPR9754K.YOLANDA.DB2 10/30/200054CBC W/AUTO DIFF 2019-10-30 07:36:00* Test Item [...] = MDIFF) NO, ONLY SCAN NEEDED DIFFERENTIAL [id number] 07:36:00* Test Item Value Reference Range Interpretation Comments STAIN ACCEPTABILITY (test code = STN ACCEPTABLE) STAIN ACCEPTABLE PLATELET ESTIMATE (test code = PLTEST) DECREASED PLATELET MORPHOLOGY (test code = PLTMORPH) SIZE VARIABLE COMPREHENSIVE METABOLIC [id number] 07:31:00* Test Item Value Reference Range Interpretation [...] due to change in reagent. COMPREHENSIVE METABOLIC [id number] 07:03:00* Test Item Value Reference Range Interpretation [...] code = ALKP) IUnit/L 45-117 CBC W/AUTO [id number] 06:47:00* Test Item Value Reference Range Interpretation [...] = MDIFF) NO, ONLY SCAN NEEDED DIFFERENTIAL [id number] 06:47:00* Test Item Value Reference Range Interpretation Comments STAIN ACCEPTABILITY (test code = STN ACCEPTABLE) CABOT RINGS (test code = CAB) MORPHOLOGY COMMENT (test code = MOC) PLATELET ESTIMATE (test code = PLTEST) PLATELET MORPHOLOGY (test code = PLTMORPH) CBC W/AUTO [id number] 06:47:00* Test Item Value Reference Range Interpretation [...] = MDIFF) NO, ONLY SCAN NEEDED DIFFERENTIAL [id number] 06:47:00* Test Item Value Reference Range Interpretation Comments STAIN ACCEPTABILITY (test code = STN ACCEPTABLE) MORPHOLOGY COMMENT (test code = MOC) PLATELET ESTIMATE (test code = PLTEST) PLATELET MORPHOLOGY (test code = PLTMORPH) CBC W/AUTO [id number] 06:46:00* Test Item Value Reference Range Interpretation [...] = MDIFF) NO, ONLY SCAN NEEDED DIFFERENTIAL [id number] 06:46:00* Test Item Value Reference Range Interpretation Comments STAIN ACCEPTABILITY (test code = STN ACCEPTABLE) CABOT RINGS (test code = CAB) MORPHOLOGY COMMENT (test code = MOC) PLATELET ESTIMATE (test code = PLTEST) PLATELET MORPHOLOGY (test code = PLTMORPH) CBC W/AUTO [id number] 06:46:00* Test Item Value Reference Range Interpretation [...] = MDIFF) NO, ONLY SCAN NEEDED DIFFERENTIAL [id number] 06:46:00* Test Item Value Reference Range Interpretation Comments STAIN ACCEPTABILITY (test code = STN ACCEPTABLE) CABOT RINGS (test code = CAB) MORPHOLOGY COMMENT (test code = MOC) PLATELET ESTIMATE (test code = PLTEST) PLATELET MORPHOLOGY (test code = PLTMORPH) BASIC METABOLIC [id number] 06:02:00* Test Item Value Reference Range Interpretation [...] CA) 9.2 mg/dL 8.5-10.1 N BASIC METABOLIC [id number] 05:56:00* Test Item Value Reference Range Interpretation [...] = CA) mg/dL 8.5-10.1 Coronavirus 2019 nCoV Tdnzusq0772-80-09 10:36:00* Test Item Value Reference Range Interpretation Comments Coronavirus 2019 nCoV Bedside (test code = COVNONPUIBED) Negative PROTHROMBIN [id number] 10:29:00* Test Item Value Reference Range Interpretation [...] (2.5-3.5) IS PATIENT ON ANTICOAGULANTS? NTHROMBOPLASTIN TIME [id number] 10:29:00* Test Item Value Reference Range Interpretation Comments THROMBOPLASTIN TIME PARTIAL (test code = PTT) 33.6 seconds 23.0-37. 0 N IS PATIENT ON ANTICOAGULANTS? NCOMPREHENSIVE METABOLIC [id number] 10:17:00 * Test Item Value Reference Range [...] due to change in reagent. CBC W/AUTO [id number] 09:43:00* Test Item Value Reference Range Interpretation [...] DIFF REQUIRED (test code = MDIFF) NO [id number] 20:41:00* Test Item Value Reference Range Interpretation Comments GLUBED (test code = GLUBED) 106 mg/dL 74-106 N Performed by certified solid waste facility operator at [facility] ABDOMEN-1VIEW (KUB)2019-10-13 10:47:00 [facility] [address] [address] Patient Name: VANESSA KHOURY MR #: [id number] : 1975 Age/Sex: 44/M Req #: [id number] Adm Physician: Ordered by: GISELA LAYNE DO Report #: [id number] Location: ER Room/Bed: Procedure: [id number] DX/ABDOMEN-1V IEW (KUB) Exam Date: 10/13/19 Exam Time: 919 REPORT STATUS: Signed EXAM: ABDOMEN-1 VIEW (KUB) DATE: 10/13/2019 9:46 AM INDICATION: Gastrostomy replacemen t COMPARISON: None FINDINGS: Single AP view of the abdomen was obt ained after the administration of Gastrografin via the indwelling gastrostomy catheter. A director vaccine image was not obtained. There is contrast [...] GISELA LAYNE DO - CONT INJ GS/ DU/ JJ/ [id number] 09:47:00 FAX: Marcelina Younger DO [place]: St: REG Name: VANESSA ANDREA [facility] : [birth year] Age/S: 44/M [address] Unit #: [id number] Loc: [place] [address] Phys: Marcelina Younger DO Acct: [id number] Dis Date: Status: REG ER PHONE #: [phone] Exam Date: 10/09/2019914 FAX #: [phone] Reason: peg tube replacement EXAMS: CPT CODE: [id number] CONT INJ GS/ DU/ JJ/ G G 44710 HISTORY: PEG tube placement. COMPARISON: CT scan from September 10, 2019. Location: TH. Radioisotope Technician view of the abdomen demonstrating gastrostomy tube [...] yamile MENDEZTH4 Orig Print D/T: S: 10/09/2019 (0551) P AGE 1 Signed Report BASIC METABOLIC [id number] 05:25:00* Test Item Value Reference Range Interpretation [...] CA) 9.0 mg/dL 8.5-10.1 N BASIC METABOLIC [id number] 05:17:00* Test Item Value Reference Range Interpretation [...] code = CA) mg/dL 8.5-10.1 BASIC METABOLIC [id number] 14:23:00* Test Item Value Reference Range Interpretation [...] CA) 8.8 mg/dL 8.5-10.1 N CBC W/AUTO [id number] 14:20:00* Test Item Value Reference Range Interpretation [...] NRBC#) 0.00 K/mm3 0.0-0.1 N BASIC METABOLIC [id number] 14:20:00* Test Item Value Reference Range Interpretation [...] code = CA) 8.8 mg/dL 8.5-10.1 N [id number] 18:04:00* Test Item Value Reference Range Interpretation Comments GLUBED (test code = GLUBED) 95 mg/dL 74-106 N Performed by certified solid waste facility operator at [facility] [id number] 07:58:00* Test Item Value Reference Range Interpretation Comments GLUBED (test code = GLUBED) 99 mg/dL 74-106 N Performed by certified solid waste facility operator at [facility] [id number] 21:01:00* Test Item Value Reference Range Interpretation Comments GLUBED (test code = GLUBED) 105 mg/dL 74-106 N Performed [facility] certified solid waste facility operator [facility]~ Coronavirus 2019 nCoV Cghqovn5526-93-49 11:47:00* Test Item Value Reference Range Interpretation Comments Coronavirus 2019 nCoV Bedside (test code = COVNONPUIBED) Negative Emergent procedure? YESBASIC METABOLIC [id number] 07:11:00* Test Item Value Reference Range Interpretation [...] CA) 9.5 mg/dL 8.5-10.1 N BASIC METABOLIC [id number] 06:51:00* Test Item Value Reference Range Interpretation [...] code = CA) mg/dL 8.5-10.1 CBC W/AUTO [id number] 06:33:00* Test Item Value Reference Range Interpretation [...] = MDIFF) NO - CT ABD PELVIS W/[id number] 17:10:00 Name: VANESSA KHOURY [facility] : 1975 Age/S: 44 / M [address] [facility] Unit #: [id number] Loc: [place] [address] Phys: Virgil Montero MD Acct: [id number] Dis Date: Status: REG ER PHONE #: [phone] Exam Date: 09/10/2019 7610 FAX #: [phone] Reason: Vomiting after PEG tube replacement EXAMS: CPT CODE: [id number] CT ABD PELVIS W/CONT 25659 HISTORY: Vomiting after PEG tube replacement. COMPARISON: Abdomen x-ray from same day. Location: . CT of abdomen and pelvis with IV [...] Signed Report (CON TINUED) Name: VANESSA KHOURY [facility] : 1975 Age/S: 44 / M [address] [facility] Unit #: [id number] Loc: [place] [address] Phys: Virgil Velasquez MD Acct: [id number] Dis Date: Status: REG ER PH ONE #: [phone] Exam Date: 09/10/2019 6910 FAX #: [phone] Reason: Vomiting after PEG tube replacement EXA MS: CPT CODE: [id number] CT AB D PELVIS W/CONT 65603 <Continued> Prostate is not enlarged. No pelvic [...] tests. at 1710 Reported and signed by: Luek Givens M.D. CC: Virgil Montero MD Technologist:Yola Brooks RT(R)(CT); . CTDI: DLP: Trns cb Date/Time: 09/10/2019 (1709) rhettTOM.TH4 Orig Print D/T: S: 09/10/2019 (9883) PAGE 2 Signed Report BASIC METABOLIC [id number] 15:56:00* Test Item Value Reference Range Interpretation [...] CA) 10.6 mg/dL 8.5-10.1 H HEPATIC FUNCTION [id number] 15:56:00* Test Item Value Reference Range Interpretation [...] reference range due to change in reagent. [id number] 15:56:00* Test Item Value Reference Range Interpretation Comments LIPASE (test code = LIP) 63 U/L 73.0-393.0 L BASIC METABOLIC [id number] 15:48:00* Test Item Value Reference Range Interpretation [...] code = CA) mg/dL 8.5-10.1 HEPATIC FUNCTION [id number] 15:48:00* Test Item Value Reference Range Interpretation [...] TOTAL (test code = ALKP) IUnit/L 45-117 [id number] 15:48:00* Test Item Value Reference Range Interpretation Comments LIPASE (test code = LIP) U/L 73.0-393.0 CBC W/O [id number] 15:37:00* Test Item Value Reference Range Interpretation [...] MPV) 12.7 fL 6.7-11.0 H CBC W/O [id number] 15:36:00* Test Item Value Reference Range Interpretation [...] MPV) fL 6.7-11.0 - CONT INJ GS/ RISSA/ MEGAN/ [id number] 09:56:00 FAX: Virgil Montero MD [place]: St: REG Name: VANESSA ANDREA [facility] : [birth year] Age/S: 44/M [address] [facility] Unit #: [id number] Loc: [place] [address] Phys: Virgil Montero MD Acct: [id number] Dis Date: Status: REG ER PHONE #: [phone] Exam Date: 09/10/2019951 FAX #: [phone] Reason: peg tube replacement EXAMS: CPT CODE: [id number] CONT INJ GS/ RISSA/ JJ/ G G 02210 EXAM: KUB and evaluation of gastro stomy [...] PIERCE(R) Trnscrd Date/Time/By: 09/10/2019 (0956) : By: Franci Orig Print D/T: S: 09/10/2019 (9430) PAGE 1 Signed Report Blood Culture 2019-08-18 01:37:00* Test Item Value Reference Range Interpretation Comments Blood Culture (test code = 43026707) NO GROWTH AFTER 5 DAYS, FINAL REPORT [facility]lamydia pneumoniae DNA (PCR)2019-08-16 10:36:00* Test Item Value Reference Range Interpretation Comments Chlamydia pneumoniae DNA (PCR) (test code = Chlamydia pneumoniae DNA (PCR)) NOT DETECTED NOT DETECT [facility] A ([facility]-PCR)2019-08-16 10:36:00* Test Item Value Reference Range Interpretation Comments Influenza Type A (RT-PCR) (test code = 929566601) NOT DETECTED NOT DETECT [facility]Mycoplasma pneumoniae (PCR)2019-08-16 10:36:00* Test Item Value Reference Range Interpretation Comments Mycoplasma pneumoniae (PCR) (test code = Mycoplasma pn eumoniae (PCR)) NOT DETECTED NOT DETECT [facility]Influenza Type B (RT-PCR)2019-08-16 10:36:00* Test Item Value Reference Range Interpretation Comments Influenza Type B (RT-PCR) (test code = 549982275) NOT DETECTED NOT DETECT [facility]Respiratory Syncytial Virus (PCR) 2019-08-16 10:36:00* Test Item Value Reference Range Interpretation Comments Respiratory Syncytial Virus (PCR) (test code = 732976663) NO T DETECTED NOT DETECT [facility]healthBordetella pertussis DNA (PCR)2019-08-16 10:36:00* Test Item Value Reference Range Interpretation Comments Bordetella pertussis DNA (PCR) (test code = 863490443) NOT DETEC [place]LL NOT DETECT [facility]Parainfluenza Type 1 (PCR)2019-08-16 10:36:00* Test Item Value Reference Range Interpretation Comments Parainfluenza Type 1 (PCR) (test code = 343961071) NOT DETECTED NOT DETECT [facility]ainfluenza Type 2 (PCR)2019-08-16 10:36:00* Test Item Value Reference Range Interpretation Comments Parainfluenza Type 2 (PCR) (test code = 767999419) NOT DETECTED NOT DETECT [facility]Parainfluenza Type 3 (PCR)2019-08-16 10:36:00* Test Item Value Reference Range Interpretation Comments Parainfluenza Type 3 (PCR) (test code = 995600049) NOT DETECTED NOT DETECT [facility] WestParainfluenza Type 4 (PCR)2019-08-16 10:36:00* Test Item Value Reference Range Interpretation Comments Parainfluenza Type 4 (PCR) (test code = Parainfluenza Type 4 (PCR)) NOT DETECTED NOT DETECT [facility] WestRhinovirus (PCR)2019-08-16 10:36:00* Test Item Value Reference Range Interpretation Comments Rhinovirus (PCR) (test code = 910753994) NOT DETECTED NOT DETECT [facility] WestHuman Metapneumovirus (PCR)2019-08-16 10:36:00* Test Item Value Reference Range Interpretation Comments Human Metapneumovirus (PCR) (test code = 035585710) NOT DETECTED NO T DETECT [facility] WestAdenovirus (PCR)2019-08-16 10:36:00* Test Item Value Reference Range Interpretation Comments Adenovirus (PCR) (test code = 330696617) NOT DETECTED NOT DETECT [facility] WestCoronavirus Type HKU1 (PCR)2019-08-16 10:36:00* Test Item Value Reference Range Interpretation Comments Coronavirus Type HKU1 (PCR) (test code = Coronavirus T ype HKU1 (PCR)) NOT DETECTED NOT DETECT [facility] WestCoronavirus Type NL63 (PCR)2019-08-16 10:36:00* Test Item Value Reference Range Interpretation Comments Coronavirus Type NL63 (PCR) (test code = Coronavirus T ype NL63 (PCR)) NOT DETECTED NOT DETECT [facility] WestCoronavirus Type OC43 (PCR)2019-08-16 10:36:00* Test Item Value Reference Range Interpretation Comments Coronavirus Type OC43 (PCR) (test code = Coronavirus T ype OC43 (PCR)) NOT DETECTED NOT DETECT [facility] WestCoronavirus Type 229E (PCR)2019-08-16 10:36:00* Test Item Value [...] management decisions. This sample was tested at [facility] using the [employer] ray Respiratory Panel. It is FDA cleared and has been verified and approved by t [facility] for clinical use on nasopharyngeal swa b specimens.ALL RESPIRATORY VIRAL PANEL Testing performed at [address] [address]UOFVQBR HAVE BEEN CALLED [facility] Yzfwnqd8036-45-43 20:32:00* Test Item Value Reference Range Interpretation Comments Bedside Glucose (test code = 55653-1) 112 70-120 Meter ID: [id number] [facility] measurement by glucometer (mass/volume)2019-08-15 12:26:00* Test Item Value Reference Range Interpretation Comments Bedside Glucose (test code = 07002-5) 112 mg/dL 70-120 Meter ID: [id number] [facility] by glucometer (mass/volume)2019-08-15 12:26:00* Test Item Value Reference Range Interpretation Comments Bedside Glucose (test code = 22363-6) 112 mg/dL 70-120 Meter ID: [id number] [facility] CenterCap[facility] blood glucose measurement by glucometer (mass/volume)2019-08-15 12:26:00* Test Item Value Reference Range Interpretation Comments Bedside Glucose (test code = 85528-7) 112 mg/dL 70-120 Meter ID: [id number] [facility]illary blood glucose measurement by glucometer (mass/volume)2019-08-15 12:26:00* Test Item Value Reference Range Interpretation Comments Bedside Glucose (test code = 31522-5) 112 mg/dL 70-120 Meter ID: [id number] [facility] by [facility] (mass/volume)2019-08-15 12:26:00* Test Item Value Reference Range Interpretation Comments Bedside Glucose (test code = 67945-5) 112 mg/dL 70-120 Meter ID: [id number] [facility] blood glucose measurement by glucometer (mass/volume)2019-08-15 12:26:00* Test Item Value Reference Range Interpretation Comments Bedside Glucose (test code = 70673-9) 112 mg/dL 70-120 Meter ID: [id number] [facility] blood glucose measurement by glucometer (mass/volume)2019-08-15 11:26:00* Test Item Value Reference Range Interpretation Comments Bedside Glucose (test code = 04308-2) 112 70-120 Meter ID: [id number] [facility] blood glucose measurement by glucometer (mass/volume)2019-08-15 11:26:00* Test Item Value Reference Range Interpretation Comments Bedside Glucose (test code = 07861-8) 112 70-120 Meter ID: [id number] by [facility] (mass/volume)2019-08-15 11:26:00* Test Item Value Reference Range Interpretation Comments Bedside Glucose (test code = 69497-4) 112 70-120 Meter ID: [id number] [facility] blood glucose measurement by glucometer (mass/volume)2019-08-15 11:26:00* Test Item Value Reference Range Interpretation Comments Bedside Glucose (test code = 21171-7) 112 70-120 Meter ID: [id number] [facility] blood glucose measurement by glucometer (mass/volume)2019-08-15 11:26:00* Test Item Value Reference Range Interpretation Comments Bedside Glucose (test code = 56710-1) 112 70-120 Meter ID: [id number] Methodist Hospitalodium Level 2019-08-15 05:37:00* Test Item Value Reference Range Interpretation Comments Sodium Level (test code = 2951-2) 145 136-145 [facility] WestPotassium Qwpjs3936-30-95 05:37:00* Test Item Value Reference Range Interpretation Comments Potassium Level (test code = 2823-3) 3.3 3.5-5.1 L [facility] WestChloride Ditdu8878-91-98 05:37:00* Test Item Value Reference Range Interpretation Comments Chloride Level (test code = 2075-0) 110 98-107 H [facility] WestCarbon Dioxide Hxxjp3700-93-23 05:37:00* Test Item Value Reference Range Interpretation Comments Carbon Dioxide Level (test code = 2028-9) 26 22-29 [facility] WestAnion Dht3938-36-74 05:37:00* Test Item Value Reference Range Interpretation Comments Anion Gap (test code = 92114-4) 12.3 8-16 [facility] WestBlood Urea Ltmajwlg5273-54-00 05:37:00* Test Item Value Reference Range Interpretation Comments Blood Urea Nitrogen (test code = 3094-0) 11 7-26 [facility] WestCreatinine2020-04-06 05:37:00* Test Item Value Reference Range Interpretation Comments Creatinine (test code = 2160-0) 0.54 0.72-1.25 L [facility] WestBUN/Creatinine Pobyj2367-42-48 05:37:00* Test Item Value Reference Range Interpretation Comments BUN/Creatinine Ratio (test code = 3097-3) 20 6- [facility] WestEstimat Glomerular Filtration Rate 2019-08-15 05:37:00* Test Item Value Reference Range Interpretation Comments Estimat Glomerular Filtration Rate (test code = 452951416) > 60 >60 Ranges were taken from the National Kidney Disease Education Program and the [facility] literature.Reference ranges:60 or greater: Mgpjml49-56 ( for 3 consecutive months): Chronic kidney disease 15 or less: Kidney failureHCA Houston Healthcare WestGlucose Shdin0137-70-23 05:37:00* Test Item Value Reference Range Interpretation Comments Glucose Level (test code = JJN4153) 88 74-118 [facility] WestCalcium Iwbpf2701-20-49 05:37:00* Test Item Value Reference Range Interpretation Comments Calcium Level (test code = 80573-7) 8.5 8.4-10.2 [facility] WestCoronavirus (PCR)2019-08-15 05:13:00* Test Item Value Reference Range [...] for the duration of the declaration that [place] service unittances exist justifying the authorization of emergency use [...] to perform high complexity tests.Specimen sent to [facility] and testing performed by [facility] [address] [place] [address] [phone] Director: Jose Alberto M.D.IA # [id number] Hermann Cypress Hospitalerum or plasma sodium measurement (moles/volume)2019-08-15 04:50:00* Test Item Value Reference Range Interpretation Comments Sodium Level (test code = 2951-2) 145 136-145 [facility] Hospitalerum or plasma potassium measurement (moles/volume)2019-08-15 04:50:00* Test Item Value Reference Range Interpretation Comments Potassium Level (test code = 2823-3) 3.3 3.5-5.1 [facility] Hospitalerum or plasma chloride measurement (moles/volume)2019-08-15 04:50:00* Test Item Value Reference Range Interpretation Comments Chloride Level (test code = 2075-0) 110 98-107 [facility] Hospitalerum or plasma carbon dioxide, total measurement (moles/volume)2019-08-15 04:50:00* Test Item Value Reference Range Interpretation Comments Carbon Dioxide Level (test code = 2028-9) 26 22-29 [facility] Hospitalerum or plasma anion nbs7845-27-69 04:50:00* Test Item Value Reference Range Interpretation Comments Anion Gap (test code = 93823-6) 12.3 8-16 [facility] Hospitalerum or plasma urea nitrogen measurement (mass/volume)2019-08-15 04:50:00* Test Item Value Reference Range Interpretation Comments Blood Urea Nitrogen (test code = 3094-0) 11 - [facility] Hospitalerum or plasma creatinine measurement (mass/volume)2019-08-15 04:50:00* Test Item Value Reference Range Interpretation Comments Creatinine (test code = 2160-0) 0.54 0.72-1.25 [facility] Hospitalerum or plasma urea nitrogen/creatinine mass afigx8234-61-22 04:50:00* Test Item Value Reference Range Interpretation Comments BUN/Creatinine Ratio (test code = 3097-3) 20 - [facility] WestEstimated glomerular filtration rate (GFR) vhwwuskwqmjiv7673-01-81 04:50:00* Test Item Value Reference Range Interpretation Comments Estimat Glomerular Filtration Rate (test code = 708059651) > 60 >60 Ranges were taken from the National Kidney Disease Education Program and the [facility] literature.Reference ranges:60 or greater: Kfpsjb46-58 ( for 3 consecutive months): Chronic kidney disease 15 or less: Kidney failureHCA Houston Healthcare WestGlucose qxzwjnrpztv6194-45-53 04:50:00* Test Item Value Reference Range Interpretation Comments Glucose Level (test code = ZSP0545) 88 74-118 [facility] Hospitalerum or plasma calcium measurement (mass/volume)2019-08-15 04:50:00* Test Item Value Reference Range Interpretation Comments Calcium Level (test code = 72064-4) 8.5 8.4-10.2 [facility] WestCHEST SINGLE (PORTABLE)2019-08-14 10:31:00 [facility] [address] [place] [address] Patient Name: VANESSA KHOURY MR #: [id number] : 1975 Age/Sex: 44/M Req #: [id number] Adm Physician: ABDI BETHEA MD Ordered by: ANY CHACON MD Report #: [id number] Location: ICU Room/Bed: ICU [facility] Procedure: [id number] DX/CH EST SINGLE (PORTABLE) Exam Date: 08/14/19 [...] 1034 COPY TO: ANY CHACON MD Total Ccrdkbbsb1743-42-48 05:44:00* Test Item Value Reference Range Interpretation Comments Total Bilirubin (test code = 1975-2) 0.5 0.2-1.2 [facility] WestAspartate Amino Transf (AST/SGOT) 2019-08-14 05:44:00* Test Item Value Reference Range Interpretation Comments Aspartate Amino Transf (AST/SGOT) (test code = Aspartate Amino Transf (AST/SGOT)) 18 5-34 [facility] WestAlanine Aminotransferase (ALT/SGPT) 2019-08-14 05:44:00* Test Item Value Reference Range Interpretation Comments Alanine Aminotransferase (ALT/SGPT) (test code = 1742-6) 17 0-55 [facility] WestTotal Qknvgbn9267-93-27 05:44:00* Test Item Value Reference Range Interpretation Comments Total Protein (test code = 2885-2) 5.9 6.5-8.1 L [facility] WestAlbumin2020-04-05 05:44:00* Test Item Value Reference Range Interpretation Comments Albumin (test code = 1751-7) 2.5 3.5-5.0 L [facility] WestGlobulin2020-04-05 05:44:00* Test Item Value Reference Range Interpretation Comments Globulin (test code = 58988-8) 3.4 2.3-3.5 [facility] WestAlbumin/Globulin Eicur1738-88-80 05:44:00 * Test Item Value Reference Range Interpretation Comments Albumin/Globulin Ratio (test code = 1759-0) 0.7 0.8-2.0 L [facility] WestAlkaline Rszykugrquc0776-31-29 05:44:00* Test Item Value Reference Range Interpretation Comments Alkaline Phosphatase (test code = 6768-6) 108 40-150 [facility] WestProthrombin Unwa4130-68-25 05:40:00* Test Item Value Reference Range Interpretation Comments Prothrombin Time (test code = 5902-2) 15.9 11.9-14.5 H [facility] WestProthromb Time International Ratio 2019-08-14 05:40:00* Test Item Value Reference Range Interpretation Comments Prothromb Time International Ratio (test code = 6301-6) 1.19 Oral Anticoagulant Therapy INR Values:1. Low Intensity Therapy 1.5 - 2.02 . Moderate Intensity Therapy 2.0 - 3.03. High Intensity Therapy(1) 2.5 - 3. 54. High Intensity Therapy(2) 3.0 - 4.05. Panic Value INR > 5.0 [facility] WestWhite Blood Ambfo3317-34-55 05:25:00* Test Item Value Reference Range Interpretation Comments White Blood Count (test code = 6690-2) 7.01 4.8-10.8 [facility] WestRed Blood Ztvsx9580-21-74 05:25:00* Test Item Value Reference Range Interpretation Comments Red Blood Count (test code = 789-8) 3.26 4.3-5.7 L [facility] WestHemoglobin2020-04-05 05:25:00* Test Item Value Reference Range Interpretation Comments Hemoglobin (test code = 53029-8) 9.5 14.0-18.0 L [facility] WestHematocrit2020-04-05 05:25:00* Test Item Value Reference Range Interpretation Comments Hematocrit (test code = 4544-3) 31.1 38.2-49.6 L [facility] WestMean Corpuscular Stuwio3887-90-84 05:25:00* Test Item Value Reference Range Interpretation Comments Mean Corpuscular Volume (test code = 787-2) 95.4 81-99 [facility] WestMean Corpuscular Vmsdtzlvse0895-90-30 05:25:00* Test Item Value Reference Range Interpretation Comments Mean Corpuscular Hemoglobin (test code = 785-6) 29.1 28-32 [facility] WestMean Corpuscular Hemoglobin Concent 2019-08-14 05:25:00* Test Item Value Reference Range Interpretation Comments Mean Corpuscular Hemoglobin Concent (test code = 786-4) 30.5 31-35 L [facility] WestRed Cell Distribution Vybut2705-06-72 05:25:00* Test Item Value Reference Range Interpretation Comments Red Cell Distribution Width (test code = 42667-4) 13.2 11.7 -14.4 [facility] WestPlatelet Dmwzf8109-76-72 05:25:00* Test Item Value Reference Range Interpretation Comments Platelet Count (test code = 777-3) 92 140-360 L [facility] WestNeutrophils (%) (Auto)2019-08-14 05:25:00 * Test Item Value Reference Range Interpretation Comments Neutrophils (%) (Auto) (test code = 55894-4) 73.3 38.7-80.0 [facility] WestLymphocytes (%) (Auto)2019-08-14 05:25:00 * Test Item Value Reference Range Interpretation Comments Lymphocytes (%) (Auto) (test code = 736-9) 18.7 18.0-39.1 [facility] WestMonocytes (%) (Auto)2019-08-14 05:25:00* Test Item Value Reference Range Interpretation Comments Monocytes (%) (Auto) (test code = 5905-5) 6.7 4.4-11.3 [facility] WestEosinophils (%) (Auto)2019-08-14 05:25:00 * Test Item Value Reference Range Interpretation Comments Eosinophils (%) (Auto) (test code = 713-8) 0.7 0.0-6.0 [facility] WestBasophils (%) (Auto)2019-08-14 05:25:00* Test Item Value Reference Range Interpretation Comments Basophils (%) (Auto) (test code = 706-2) 0.3 0.0-1.0 [facility] WestIM GRANULOCYTES %2019-08-14 05:25:00* Test Item Value Reference Range Interpretation Comments IM GRANULOCYTES % (test code = IM GRANULOCYTES %) 0.3 0.0- 1.0 [facility] WestNeutrophils # (Auto)2019-08-14 05:25:00* Test Item Value Reference Range Interpretation Comments Neutrophils # (Auto) (test code = 751-8) 5.1 2.1-6.9 [facility] WestLymphocytes # (Auto)2019-08-14 05:25:00* Test Item Value Reference Range Interpretation Comments Lymphocytes # (Auto) (test code = 70033-1) 1.3 1.0-3.2 [facility] WestMonocytes # (Auto)2019-08-14 05:25:00* Test Item Value Reference Range Interpretation Comments Monocytes # (Auto) (test code = 742-7) 0.5 0.2-0.8 [facility] WestEosinophils # (Auto)2019-08-14 05:25:00* Test Item Value Reference Range Interpretation Comments Eosinophils # (Auto) (test code = 711-2) 0.1 0.0-0.4 [facility] WestBasophils # (Auto)2019-08-14 05:25:00* Test Item Value Reference Range Interpretation Comments Basophils # (Auto) (test code = 704-7) 0.0 0.0-0.1 [facility] WestAbsolute Immature Granulocyte (auto 2019-08-14 05:25:00* Test Item Value Reference Range Interpretation Comments Absolute Immature Granulocyte (auto (mabel t code = Absolute Immature Granulocyte (auto) 0.02 0-0.1 [facility] WestBlood leukocytes automated count (number/volume)2019-08-14 04:39:00* Test Item Value Reference Range Interpretation Comments White Blood Count (test code = 6690-2) 7.01 4.8-10.8 [facility] WestBlredwood llc erythrocytes automated count (number/volume)2019-08-14 04:39:00* Test Item Value Reference Range Interpretation Comments Red Blood Count (test code = 789-8) 3.26 4.3-5.7 [facility] WestBlood hemoglobin measurement (moles/volume)2019-08-14 04:39:00* Test Item Value Reference Range Interpretation Comments Hemoglobin (test code = 96585-4) 9.5 14.0-18.0 [facility] WestAutomated blood hematocrit (volume fraction)2019-08-14 04:39:00* Test Item Value Reference Range Interpretation Comments Hematocrit (test code = 4544-3) 31.1 38.2-49.6 [facility] WestAutomated erythrocyte mean corpuscular tonoda8267-42-84 04:39:00* Test Item Value Reference Range Interpretation Comments Mean Corpuscular Volume (test code = 787-2) 95.4 81-99 [facility] WestAutomated erythrocyte mean corpuscular hemoglobin (mass per erythrocyte)2019-08-14 04:39:00* Test Item Value Reference Range Interpretation Comments Mean Corpuscular Hemoglobin (test code = 785-6) 29.1 28-32 [facility] WestAutomated erythrocyte mean corpuscular hemoglobin concentration measurement (mass/volume)2019-08-14 04:39:00* Test Item Value Reference Range Interpretation Comments Mean Corpuscular Hemoglobin Concent (test code = 786-4) 30.5 31-35 [facility] WestRDW SxyCa-Nhb1369-12-05 04:39:00* Test Item Value Reference Range Interpretation Comments Red Cell Distribution Width (test code = 73883-0) 13.2 11.7 -14.4 [facility] WestAutomated blood platelet count (count/volume)2019-08-14 04:39:00* Test Item Value Reference Range Interpretation Comments Platelet Count (test code = 777-3) 92 140-360 [facility] WestAutomated blood segmented neutrophil count as percentage of total yvylfxrtug2626-04-77 04:39:00* Test Item Value Reference Range Interpretation Comments Neutrophils (%) (Auto) (test code = 77375-8) 73.3 38.7-80.0 [facility] WestAutomated blood lymphocyte count as percentage ot total ldgrmldlza1693-63-14 04:39:00* Test Item Value Reference Range Interpretation Comments Lymphocytes (%) (Auto) (test code = 736-9) 18.7 18.0-39.1 [facility] WestAutomated blood monocyte count as percentage of total mixjviesmo6389-61-53 04:39:00* Test Item Value Reference Range Interpretation Comments Monocytes (%) (Auto) (test code = 5905-5) 6.7 4.4-11.3 [facility] WestAutomated blood eosinophil count as percentage of total tqagkbxavj3864-23-47 04:39:00* Test Item Value Reference Range Interpretation Comments Eosinophils (%) (Auto) (test code = 713-8) 0.7 0.0-6.0 [facility] WestAutomated blood basophil count as percentage of total mlfbelxopy8569-66-54 04:39:00* Test Item Value Reference Range Interpretation Comments Basophils (%) (Auto) (test code = 706-2) 0.3 0.0-1.0 [facility] WestFluoroscopic procedure less than one hour cwohztbb2189-32-65 04:39:00* Test Item Value Reference Range Interpretation Comments IM GRANULOCYTES % (test code = IM GRANULOCYTES %) 0.3 0.0- 1.0 [facility] WestAutomated blood neutrophil count 2019-08-14 04:39:00* Test Item Value Reference Range Interpretation Comments Neutrophils # (Auto) (test code = 751-8) 5.1 2.1-6.9 [facility] WestBlood lymphocytes count (number/volume) 2019-08-14 04:39:00* Test Item Value Reference Range Interpretation Comments Lymphocytes # (Auto) (test code = 69682-8) 1.3 1.0-3.2 [facility] WestBlredwood llc monocytes automated count (number/volume)2019-08-14 04:39:00* Test Item Value Reference Range Interpretation Comments Monocytes # (Auto) (test code = 742-7) 0.5 0.2-0.8 [facility] WestAutomated blood eosinophil count 2019-08-14 04:39:00* Test Item Value Reference Range Interpretation Comments Eosinophils # (Auto) (test code = 711-2) 0.1 0.0-0.4 [facility] WestAutomated blood basophil count (count/volume)2019-08-14 04:39:00* Test Item Value Reference Range Interpretation Comments Basophils # (Auto) (test code = 704-7) 0.0 0.0-0.1 [facility] WestFluoroscopic procedure less than one hour npkoyfvj6610-47-05 04:39:00* Test Item Value Reference Range Interpretation Comments Absolute Immature Granulocyte (auto (mabel t code = Absolute Immature Granulocyte (auto) 0.02 0-0.1 [facility] WestProthrombin time (PT) in platelet poor plasma by coagulation vydyz0242-69-97 04:39:00* Test Item Value Reference Range Interpretation Comments Prothrombin Time (test code = 5902-2) 15.9 11.9-14.5 [facility] WestINR in Platelet poor plasma by Coagulation ywhop6205-23-07 04:39:00* Test Item Value Reference Range Interpretation Comments Prothromb Time International Ratio (test code = 6301-6) 1.19 Oral Anticoagulant Therapy INR Values:1. Low Intensity Therapy 1.5 - 2.02 . Moderate Intensity Therapy 2.0 - 3.03. High Intensity Therapy(1) 2.5 - 3. 54. High Intensity Therapy(2) 3.0 - 4.05. Panic Value INR > 5.0 [facility] Hospitalerum or plasma total bilirubin measurement (mass/volume)2019-08-14 04:39:00* Test Item Value Reference Range Interpretation Comments Total Bilirubin (test code = 1975-2) 0.5 0.2-1.2 [facility] WestFluoroscopic procedure less than one hour mecqjfbi6449-51-10 04:39:00* Test Item Value Reference Range Interpretation Comments Aspartate Amino Transf (AST/SGOT) (test code = Aspartate Amino Transf (AST/SGOT)) 18 5-34 [facility] Hospitalerum or plasma alanine aminotransferase measurement (enzymatic activity/volume)2019-08-14 04:39:00* Test Item Value Reference Range Interpretation Comments Alanine Aminotransferase (ALT/SGPT) (test code = 1742-6) 17 0-55 [facility] Hospitalerum or plasma protein measurement (mass/volume)2019-08-14 04:39:00* Test Item Value Reference Range Interpretation Comments Total Protein (test code = 2885-2) 5.9 6.5-8.1 [facility] Hospitalerum or plasma albumin measurement (mass/volume)2019-08-14 04:39:00* Test Item Value Reference Range Interpretation Comments Albumin (test code = 1751-7) 2.5 3.5-5.0 [facility] WestPlasma globulin measurement (mass/volume) 2019-08-14 04:39:00* Test Item Value Reference Range Interpretation Comments Globulin (test code = 27882-0) 3.4 2.3-3.5 [facility] Hospitalerum or plasma albumin/globulin mass eoxoc7946-09-38 04:39:00* Test Item Value Reference Range Interpretation Comments Albumin/Globulin Ratio (test code = 1759-0) 0.7 0.8-2.0 [facility] Hospitalerum or plasma alkaline phosphatase measurement (enzymatic activity/volume)2019-08-14 04:39:00* Test Item Value Reference Range Interpretation Comments Alkaline Phosphatase (test code = 6768-6) 108 40-150 [facility] WestCreatine Kinase FP0463-06-52 07:46:00* Test Item Value Reference Range Interpretation Comments Creatine Kinase MB (test code = 84421-7) 0.60 0-5.0 [facility] WestTroponin T3870-37-48 07:46:00* Test Item Value Reference Range Interpretation Comments Troponin I (test code = 20095-9) 0.018 0-0.300 [facility] WestCreatine Ffdhwi9001-86-74 07:24:00* Test Item Value Reference Range Interpretation Comments Creatine Kinase (test code = 2157-6) 64 30-200 [facility] Hospitalerum or plasma creatine kinase measurement (enzymatic activity/volume)2019-08-13 06:53:00* Test Item Value Reference Range Interpretation Comments Creatine Kinase (test code = 2157-6) 64 30-200 [facility] Hospitalerum or plasma creatine kinase MB measurement (mass/volume)2019-08-13 06:53:00* Test Item Value Reference Range Interpretation Comments Creatine Kinase MB (test code = 09293-1) 0.60 0-5.0 [facility] WestTroponin I measurement by highly sensitive enzyme mofqlrpddcp1781-52-50 06:53:00* Test Item Value Reference Range Interpretation Comments Troponin I (test code = 68126-1) 0.018 0-0.300 [facility] WestCT CHEST AL1801-60-51 04:56:00 [place] [address] Patient Name: VANESSA KHOURY MR #: [id number] : 1975 Age/Sex: 44/M Req #: [id number] Adm Physician: Ordered by: KAY PHILIPPE MD Report #: [id number] Location: ER Room/Bed: Procedure: [id number]/CT CHEST WO Exam Date: Exam Time: REPORT STATUS: Signed CT chest without enha ncement CPT code: 33865 INDICATION: Fever, atelectasis TECHNIQUE : Thin collimation [...] COPY TO: KAY PHILIPPE MD Lactic Acid Xncjw5735-89-78 03:59:00* Test Item Value Reference Range Interpretation Comments Lactic Acid Level (test code = Lactic Acid Level) 1.0 0.5- 2.0 [facility] WestUrine Efzkb6787-86-18 03:41:00* Test Item Value Reference Range Interpretation Comments Urine Color (test code = 5778-6) ASHISH YELLOW H [facility] WestUrine Ggwcvpx8815-35-54 03:41:00* Test Item Value Reference Range Interpretation Comments Urine Clarity (test code = 22325-1) HAZY CLEAR [facility] WestUrine Specific Qsrrgkz8825-79-99 03:41:00 * Test Item Value Reference Range Interpretation Comments Urine Specific [place] (test code = 5811-5) 1.030 1.010-1.02 5 H [facility] WestUrine tW8714-03-70 03:41:00* Test Item Value Reference Range Interpretation Comments Urine pH (test code = 63633-5) 6 5-7 [facility] WestUrine Leukocyte Jdilnboz2093-84-05 03:41:00* Test Item Value Reference Range Interpretation Comments Urine Leukocyte Esterase (test code = 5799-2) NEGATIVE NEGATIVE [facility] Gspxgeh5586-30-66 03:41:00* Test Item Value Reference Range Interpretation Comments Urine Nitrite (test code = 87222-8) NEGATIVE NEGATIVE [facility] WestUrine Mxgudvj0130-81-87 03:41:00* Test Item Value Reference Range Interpretation Comments Urine Protein (test code = 5804-0) 2+ NEGATIVE H [facility] Glucose (UA)2019-08-13 03:41:00* Test Item Value Reference Range Interpretation Comments Urine Glucose (UA) (test code = 2349-9) NEGATIVE NEGATIVE [facility] Zbzqrrc1456-99-88 03:41:00* Test Item Value Reference Range Interpretation Comments Urine Ketones (test code = 85977-3) NEGATIVE NEGATIVE [facility] Mmdtsnhfydgw2562-08-95 03:41:00* Test Item Value Reference Range Interpretation Comments Urine Urobilinogen (test code = 88649-5) 1 0.2-1 [facility] Dcjjnednz9452-97-99 03:41:00* Test Item Value Reference Range Interpretation Comments Urine Bilirubin (test code = 1978-6) NEGATIVE NEGATIVE [facility] [facility] Iothk4359-99-50 03:41:00* Test Item Value Reference Range Interpretation Comments Urine Blood (test code = 02838-3) NEGATIVE NEGATIVE [facility] VIQ1469-05-69 03:41:00* Test Item Value Reference Range Interpretation Comments Urine WBC (test code = 5821-4) 0-5 0-5 [facility] [id number] 03:41:00* Test Item Value Reference Range Interpretation Comments Urine RBC (test code = 69861-7) NONE 0-5 [facility] Whkbhemc7945-60-95 03:41:00* Test Item Value Reference Range Interpretation Comments Urine Bacteria (test code = 11146-5) FEW NONE [facility] Epithelial Ltogv9805-03-88 03:41:00 * Test Item Value Reference Range Interpretation Comments Urine Epithelial Cells (test code = 93512-8) FEW NONE [facility] WestInfluenza Virus Types A,B Antigen 2019-08-13 03:10:00* Test Item Value Reference Range Interpretation Comments Influenza Virus Types A,B Antigen (test code = 33900-1) NEGATIVE NEGATIVE [facility] A Streptococcus Jlyhgf5346-05-11 03:10:00* Test Item Value Reference Range Interpretation Comments Group A Streptococcus Screen (test code = 35508-0) NEGATIVE NEG ATIVE [facility]ST SINGLE (PORTABLE)2019-08-13 03:06:00 [facility] [address] [address] Patient Name: VANESSA KHOURY MR #: [id number] : 1975 Age/Sex: 44/M Req #: [id number] Adm Physician: Ordered by: KAY PHILIPPE MD Report #: [id number] Location: ER Room/Bed: Procedure: [id number] DX/CHEST SINGLE (PORTABLE) Exam Date: 08/13/19 Exa m Time: 0248 REPORT STATUS: Signed EXAMINATION: CHEST SINGLE (PORTABLE) COMPARISON: None INDICATI ON: Fever fever [id number] Y DISCUSSION: Frontal view o f [...] MD Fluoroscopic procedure less than one hour avtigrxs2676-54-72 03:00:00* Test Item Value Reference Range Interpretation Comments Lactic Acid Level (test code = Lactic Acid Level) 1.0 0.5- 2.0 [facility] WestFluoroscopic procedure less than one hour tderuwnh4019-32-53 03:00:00* Test Item Value Reference Range Interpretation [...] to perform high complexity tests.Specimen sent to [facility] and testing performed by Clinical Pathology [address] [place] [address] [phone] Director: Jose Alberto M.D.CLIA # 4 [id number] [facility]Fluor[facility] one hour kffibemy0091-78-04 03:00:00* Test Item Value Reference Range Interpretation [...] to perform high complexity tests.Specimen sent to [facility] and testing performed by Clinical Pathology [address] [place] [address] [phone] Director: Jose Alberto M.D.CLIA # 4 [id number] [facility] WestFluoroscopic procedure less than one hour jxhsqgdf6971-21-13 03:00:00* Test Item Value Reference Range Interpretation [...] expected result is negative (not detected).The SARS-CoV-2 maebl t is intended for the qualitative detection [...] to perform high complexity tests.Specimen sent to [facility] and testing performed by Clinical Pathology [address] [place] [address] [phone] Director: Jose Alberto M.D.CLIA # 4 [id number] [facility] WestFluoroscopic procedure less than one hour uwfhfgsw8527-55-03 03:00:00* Test Item Value Reference Range Interpretation [...] to perform high complexity tests.Specimen sent to [facility] and testing performed by Clinical Pathology [address] [place] [address] [phone] Director: Jose Alberto M.D.CLIA # 4 [id number] [facility] CenterFluor[facility] procedure less than one hour frhklgex2408-55-23 03:00:00* Test Item Value Reference Range Interpretation [...] to perform high complexity tests.Specimen sent to [facility] and testing performed by Clinical Pathology [address] [place], [place] [phone] Director: Jose Alberto M.D.[facility] # 4 [id number] [facility] CenterFluoroscopic procedure less than one hour toxluvpr3937-68-54 03:00:00* Test Item Value Reference Range Interpretation [...] to perform high complexity tests.Specimen sent to [facility] and testing performed by Clinical Pathology [address] [place] [address] [phone] Director: Jose Alberto M.D.CLIA # 4 [id number] [facility] WestArterial blood pH measurement 2019-08-13 02:40:00* Test Item Value Reference Range Interpretation Comments Arterial Blood pH (test code = 2744-1) 7.49 7.31-7.41 [facility] WestpCO2 FgxM7485-33-90 02:40:00* Test Item Value Reference Range Interpretation Comments Arterial Blood Partial Pressure CO2 (test code = 2019-8) 32 mm[Hg] 35-45 [facility] WestArterial blood bicarbonate measurement (moles/volume)2019-08-13 02:40:00* Test Item Value Reference Range Interpretation Comments Arterial Blood HCO3 (test code = 1960-4) 25 mmol/L 23-28 [facility] WestArterial blood base excess by calculation 2019-08-13 02:40:00* Test Item Value Reference Range Interpretation Comments Arterial Blood Base Excess (test code = 1925-7) 1.0 mmol/L -2-3 [facility] WestFluoroscopic procedure less than one hour cvkhllzx2832-92-21 02:40:00* Test Item Value Reference Range Interpretation Comments FiO2 (test code = FiO2) 80 % 40 [facility] SET [facility] zxslfoyeuvo4662-08-51 02:40:00* Test Item Value Reference Range Interpretation Comments Arterial Blood pH (test code = 2744-1) 7.49 7.31-7.41 [facility] WestpCO2 ArwF8505-46-96 02:40:00* Test Item Value Reference Range Interpretation Comments Arterial Blood Partial Pressure CO2 (test code = 2018-8) 32 mm[Hg] 35-45 [facility] WestArterial blood bicarbonate measurement (moles/volume)2019-08-13 02:40:00* Test Item Value Reference Range Interpretation Comments Arterial Blood HCO3 (test code = 1960-4) 25 mmol/L 23- [facility] WestAr[facility]ial blood base excess by calculation 2019-08-13 02:40:00* Test Item Value Reference Range Interpretation Comments Arterial Blood Base Excess (test code = 1925-7) 1.0 mmol/L -2-3 [facility] WestFluoroscopic procedure less than one hour xgxdbepk1919-76-87 02:40:00* Test Item Value Reference Range Interpretation Comments FiO2 (test code = FiO2) 80 % 40 VENTURI SET [facility]Ar[facility] pH ochavipymwp8997-57-23 02:40:00* Test Item Value Reference Range Interpretation Comments Arterial Blood pH (test code = 2744-1) 7.49 7.31-7.41 [facility] WestpCO2 EumV3498-45-04 02:40:00* Test Item Value Reference Range Interpretation Comments Arterial Blood Partial Pressure CO2 (test code = 2018-8) 32 mm[Hg] 35-45 [facility] WestArterial blood bicarbonate measurement (moles/volume)2019-08-13 02:40:00* Test Item Value Reference Range Interpretation Comments Arterial Blood HCO3 (test code = 1960-4) 25 mmol/L 23-28 [facility] WestArterial blood base excess by calculation 2019-08-13 02:40:00* Test Item Value Reference Range Interpretation Comments Arterial Blood Base Excess (test code = 1925-7) 1.0 mmol/L -2-3 [facility] WestFluoroscopic procedure less than one hour kjusncqo7640-27-83 02:40:00* Test Item Value Reference Range Interpretation Comments FiO2 (test code = FiO2) 80 % 40 [facility]ENTURI SET [facility] HospitalAr[facility] blood pH xcmhowzpudr6010-44-05 02:40:00* Test Item Value Reference Range Interpretation Comments Arterial Blood pH (test code = 2744-1) 7.49 7.31-7.41 [facility] WestpCO2 QyqN2837-80-95 02:40:00* Test Item Value Reference Range Interpretation Comments Arterial Blood Partial Pressure CO2 (test code = 2018-8) 32 mm[Hg] 35-45 [facility] WestArterial blood bicarbonate measurement (moles/volume)2019-08-13 02:40:00* Test Item Value Reference Range Interpretation Comments Arterial Blood HCO3 (test code = 1960-4) 25 mmol/L 23-28 [facility] WestArterial blood base excess by calculation 2019-08-13 02:40:00* Test Item Value Reference Range Interpretation Comments Arterial Blood Base Excess (test code = 1925-7) 1.0 mmol/L -2-3 [facility] WestFluoroscopic procedure less than one hour duzeywew7676-77-86 02:40:00* Test Item Value Reference Range Interpretation Comments FiO2 (test code = FiO2) 80 % 40 VENTURI SET [facility] HospitalAr[facility] blood pH kvojvzimpbt9058-78-03 02:40:00* Test Item Value Reference Range Interpretation Comments Arterial Blood pH (test code = 2744-1) 7.49 7.31-7.41 [facility] WestpCO2 WzmI5869-76-99 02:40:00* Test Item Value Reference Range Interpretation Comments Arterial Blood Partial Pressure CO2 (test code = 2019-8) 32 mm[Hg] 35-45 [facility] WestArterial blood bicarbonate measurement (moles/volume)2019-08-13 02:40:00* Test Item Value Reference Range Interpretation Comments Arterial Blood HCO3 (test code = 1960-4) 25 mmol/L 23-28 [facility] WestArterial blood base excess by calculation 2019-08-13 02:40:00* Test Item Value Reference Range Interpretation Comments Arterial Blood Base Excess (test code = 1925-7) 1.0 mmol/L -2-3 [facility] WestFluoroscopic procedure less than one hour jhdndmow0400-34-26 02:40:00* Test Item Value Reference Range Interpretation Comments FiO2 (test code = FiO2) 80 % 40 VENTURI SET [facility] HospitalAr[facility] blood pH dsqmsmujmne0303-67-51 02:40:00* Test Item Value Reference Range Interpretation Comments Arterial Blood pH (test code = 2744-1) 7.49 7.31-7.41 [facility] WestpCO2 TorF0114-95-53 02:40:00* Test Item Value Reference Range Interpretation Comments Arterial Blood Partial Pressure CO2 (test code = 2019-8) 32 mm[Hg] 35-45 [facility] WestArterial blood bicarbonate measurement (moles/volume)2019-08-13 02:40:00* Test Item Value Reference Range Interpretation Comments Arterial Blood HCO3 (test code = 1960-4) 25 mmol/L - [facility] WestArterial blood base excess by calculation 2019-08-13 02:40:00* Test Item Value Reference Range Interpretation Comments Arterial Blood Base Excess (test code = 1925-7) 1.0 mmol/L -2-3 [facility] WestFluoroscopic procedure less than one hour hykcwwpj0513-13-43 02:40:00* Test Item Value Reference Range Interpretation Comments FiO2 (test code = FiO2) 80 % 40 VENTURI SET [facility] HospitalInfluenza virus A and B antigen identification by krvopkxuhkbtzxtzdm3232-48-89 02:25:00* Test Item Value Reference Range Interpretation Comments Influenza Virus Types A,B Antigen (test code = 38186-5) NEGATIVE NEGATIVE [facility] WestFluoroscopic procedure less than one hour jhodyzcs8182-86-34 02:25:00* Test Item Value Reference Range Interpretation Comments Chlamydia pneumoniae DNA (PCR) (test code = Chlamydia pneumoniae DNA (PCR)) NOT DETECTED NOT DETECT [facility] gigzw4602-78-36 02:25:00* Test Item Value Reference Range Interpretation Comments Influenza Type A (RT-PCR) (test code = 982908761) NOT DETECTED NOT DETECT [facility] CenterFluoroscopic procedure less than one hour cakonrwr3858-68-39 02:25:00* Test Item Value Reference Range Interpretation Comments Mycoplasma pneumoniae (PCR) (test code = Mycoplasma pn eumoniae (PCR)) NOT DETECTED NOT DETECT [facility] CenterRes[facility] virus fdtlm1730-95-36 02:25:00* Test Item Value Reference Range Interpretation Comments Influenza Type B (RT-PCR) (test code = 213344826) NOT DETECTED NOT DETECT [facility] xrpda1147-77-28 02:25:00* Test Item Value Reference Range Interpretation Comments Respiratory Syncytial Virus (PCR) (test code = 470822822) NO T DETECTED NOT DETECT [facility] virus ghcav7420-09-39 02:25:00* Test Item Value Reference Range Interpretation Comments Bordetella pertussis DNA (PCR) (test code = 015724738) NOT DETEC [place]LL NOT DETECT [facility] CenterRes[facility] virus rnmja7817-63-38 02:25:00* Test Item Value Reference Range Interpretation Comments Parainfluenza Type 1 (PCR) (test code = 622179276) NOT DETECTED NOT DETECT [facility] CenterRes[facility] virus epqda4837-07-90 02:25:00* Test Item Value Reference Range Interpretation Comments Parainfluenza Type 2 (PCR) (test code = 747267820) NOT DETECTED NOT DETECT [facility] CenterRes[facility] virus jcftd9503-01-04 02:25:00* Test Item Value Reference Range Interpretation Comments Parainfluenza Type 3 (PCR) (test code = 132660097) NOT DETECTED NOT DETECT [facility] than one hour chqiwksa1991-29-53 02:25:00* Test Item Value Reference Range Interpretation Comments Parainfluenza Type 4 (PCR) (test code = Parainfluenza Type 4 (PCR)) NOT DETECTED NOT DETECT [facility] ecwno6213-42-69 02:25:00* Test Item Value Reference Range Interpretation Comments Rhinovirus (PCR) (test code = 222759627) NOT DETECTED NOT DETECT [facility] WestRespiratory virus fbjhj2743-26-55 02:25:00* Test Item Value Reference Range Interpretation Comments Human Metapneumovirus (PCR) (test code = 637962891) NOT DETECTED NO T DETECT [facility] WestRespiratory virus kgrjj7533-41-08 02:25:00* Test Item Value Reference Range Interpretation Comments Adenovirus (PCR) (test code = 255634160) NOT DETECTED NOT DETECT [facility] WestFluoroscopic procedure less than one hour gkiekjla3125-87-94 02:25:00* Test Item Value Reference Range Interpretation [...] management decisions. This sample was tested at [facility] using the [employer] Respiratory Panel. It is FDA cleared and has been verified and approved by [facility] for clinical use on nasopharyngeal swa b specimens.ALL RESPIRATORY VIRAL PANEL Testing performed at [place], [place] [address]RESULTS HAVE BEEN CALLED TO THE [facility]Flu[facility]oscopic procedure less than one hour rgiazzsl5601-56-29 02:25:00* Test Item Value Reference Range Interpretation Comments Coronavirus Type HKU1 (PCR) (test code = Coronavirus T ype HKU1 (PCR)) NOT DETECTED NOT DETECT [facility] WestFluoroscopic procedure less than one hour hjnuzvda4117-74-29 02:25:00* Test Item Value Reference Range Interpretation Comments Coronavirus Type NL63 (PCR) (test code = Coronavirus T ype NL63 (PCR)) NOT DETECTED NOT DETECT [facility] WestFluoroscopic procedure less than one hour zjhujvcb3262-29-31 02:25:00* Test Item Value Reference Range Interpretation Comments Coronavirus Type OC43 (PCR) (test code = Coronavirus T ype OC43 (PCR)) NOT DETECTED NOT DETECT [facility] pyogenes antigen detection in vprdmc3769-28-93 02:25:00* Test Item Value Reference Range Interpretation Comments Group A Streptococcus Screen (test code = 44649-6) NEGATIVE NEG ATIVE [facility] WestInfluenza virus A and B antigen identification by beikmaoenmarlmlebi8378-34-05 02:25:00* Test Item Value Reference Range Interpretation Comments Influenza Virus Types A,B Antigen (test code = 75743-1) NEGATIVE NEGATIVE [facility] WestFluoroscopic procedure less than one hour gecdoriw1422-54-22 02:25:00* Test Item Value Reference Range Interpretation Comments Chlamydia pneumoniae DNA (PCR) (test code = Chlamydia pneumoniae DNA (PCR)) NOT DETECTED NOT DETECT [facility] WestRespiratory virus iezsx0255-38-02 02:25:00* Test Item Value Reference Range Interpretation Comments Influenza Type A (RT-PCR) (test code = 554978543) NOT DETECTED NOT DETECT [facility] WestFluoroscopic procedure less than one hour hxxpodwz1650-68-52 02:25:00* Test Item Value Reference Range Interpretation Comments Mycoplasma pneumoniae (PCR) (test code = Mycoplasma pn eumoniae (PCR)) NOT DETECTED NOT DETECT [facility] WestRespiratory virus iyxuo5549-43-28 02:25:00* Test Item Value Reference Range Interpretation Comments Influenza Type B (RT-PCR) (test code = 471617483) NOT DETECTED NOT DETECT [facility] WestRespiratory virus hdhfb3924-27-22 02:25:00* Test Item Value Reference Range Interpretation Comments Respiratory Syncytial Virus (PCR) (test code = 556619132) NO T DETECTED NOT DETECT [facility] WestRespiratory virus fncax8053-32-51 02:25:00* Test Item Value Reference Range Interpretation Comments Bordetella pertussis DNA (PCR) (test code = 048452208) NOT DETEC [place]LL NOT DETECT [facility] WestRespiratory virus uvcas8543-77-71 02:25:00* Test Item Value Reference Range Interpretation Comments Parainfluenza Type 1 (PCR) (test code = 605653445) NOT DETECTED NOT DETECT [facility] bbcfq8436-86-85 02:25:00* Test Item Value Reference Range Interpretation Comments Parainfluenza Type 2 (PCR) (test code = 084507738) NOT DETECTED NOT DETECT [facility] WestRespiratory virus zvlev8716-00-84 02:25:00* Test Item Value Reference Range Interpretation Comments Parainfluenza Type 3 (PCR) (test code = 603733599) NOT DETECTED NOT DETECT [facility] WestFluoroscopic procedure less than one hour vweeuxhk4117-06-90 02:25:00* Test Item Value Reference Range Interpretation Comments Parainfluenza Type 4 (PCR) (test code = Parainfluenza Type 4 (PCR)) NOT DETECTED NOT DETECT [facility] WestRespiratory virus cpwjk2068-46-61 02:25:00* Test Item Value Reference Range Interpretation Comments Rhinovirus (PCR) (test code = 543948527) NOT DETECTED NOT DETECT [facility] wasyt3673-28-30 02:25:00* Test Item Value Reference Range Interpretation Comments Human Metapneumovirus (PCR) (test code = 934781868) NOT DETECTED NO T DETECT [facility] WestRespiratory virus hqlus3308-52-49 02:25:00* Test Item Value Reference Range Interpretation Comments Adenovirus (PCR) (test code = 186054522) NOT DETECTED NOT DETECT [facility] WestFluoroscopic procedure less than one hour ynedpovu9278-95-27 02:25:00* Test Item Value Reference Range Interpretation [...] management decisions. This sample was tested at [facility] using the [employer] Film[employer] ray Respiratory Panel. It is FDA cleared and has been verified and approved by t [facility] for clinical use on nasopharyngeal swa b specimens.ALL RESPIRATORY VIRAL PANEL Testing performed at [facility] [place] [id number] HAVE BEEN CALLED TO THE [facility]Fluoroscopic procedure less than one hour pmphfmbd8148-62-28 02:25:00* Test Item Value Reference Range Interpretation Comments Coronavirus Type HKU1 (PCR) (test code = Coronavirus T ype HKU1 (PCR)) NOT DETECTED NOT DETECT [facility] WestFluoroscopic procedure less than one hour shibjrfa0246-16-67 02:25:00* Test Item Value Reference Range Interpretation Comments Coronavirus Type NL63 (PCR) (test code = Coronavirus T ype NL63 (PCR)) NOT DETECTED NOT DETECT [facility] WestFluoroscopic procedure less than one hour bwandddh7769-52-63 02:25:00* Test Item Value Reference Range Interpretation Comments Coronavirus Type OC43 (PCR) (test code = Coronavirus T ype OC43 (PCR)) NOT DETECTED NOT DETECT [facility] Hospitaltreptococcus pyogenes antigen detection in nlfrjz3653-38-35 02:25:00* Test Item Value Reference Range Interpretation Comments Group A Streptococcus Screen (test code = 57939-0) NEGATIVE NEG ATIVE [facility] WestInfluenza virus A and B antigen identification by efhnmyvkqbrocxamae2581-51-49 02:25:00* Test Item Value Reference Range Interpretation Comments Influenza Virus Types A,B Antigen (test code = 33500-3) NEGATIVE NEGATIVE [facility] WestFluoroscopic procedure less than one hour ocmjgteu5927-93-59 02:25:00* Test Item Value Reference Range Interpretation Comments Chlamydia pneumoniae DNA (PCR) (test code = Chlamydia pneumoniae DNA (PCR)) NOT DETECTED NOT DETECT [facility] WestRespiratory virus lighj7884-25-38 02:25:00* Test Item Value Reference Range Interpretation Comments Influenza Type A (RT-PCR) (test code = 975768566) NOT DETECTED NOT DETECT [facility] less than one hour nhzsxpus6109-24-79 02:25:00* Test Item Value Reference Range Interpretation Comments Mycoplasma pneumoniae (PCR) (test code = Mycoplasma pn eumoniae (PCR)) NOT DETECTED NOT DETECT [facility]Res[facility] virus hznrl6868-77-45 02:25:00* Test Item Value Reference Range Interpretation Comments Influenza Type B (RT-PCR) (test code = 079466710) NOT DETECTED NOT DETECT [facility]healthRes[facility] virus xxzuz2151-49-39 02:25:00* Test Item Value Reference Range Interpretation Comments Respiratory Syncytial Virus (PCR) (test code = 976998648) NO T DETECTED NOT DETECT [facility] llyjm4333-56-64 02:25:00* Test Item Value Reference Range Interpretation Comments Bordetella pertussis DNA (PCR) (test code = 958693926) NOT DETEC [place] NOT DETECT [facility]Res[facility] virus dllqy9461-48-64 02:25:00* Test Item Value Reference Range Interpretation Comments Parainfluenza Type 1 (PCR) (test code = 148833435) NOT DETECTED NOT DETECT [facility] khqne6385-19-81 02:25:00* Test Item Value Reference Range Interpretation Comments Parainfluenza Type 2 (PCR) (test code = 744289863) NOT DETECTED NOT DETECT [facility]Res[facility] virus navuu2866-25-65 02:25:00* Test Item Value Reference Range Interpretation Comments Parainfluenza Type 3 (PCR) (test code = 626722545) NOT DETECTED NOT DETECT [facility]Flu[facility] procedure less than one hour dmuovmnp7482-49-99 02:25:00* Test Item Value Reference Range Interpretation Comments Parainfluenza Type 4 (PCR) (test code = Parainfluenza Type 4 (PCR)) NOT DETECTED NOT DETECT [facility] vuern6542-99-43 02:25:00* Test Item Value Reference Range Interpretation Comments Rhinovirus (PCR) (test code = 485236308) NOT DETECTED NOT DETECT [facility] WestRespiratory virus ikwhe4041-73-00 02:25:00* Test Item Value Reference Range Interpretation Comments Human Metapneumovirus (PCR) (test code = 432133780) NOT DETECTED NO T DETECT [facility] WestRespiratory virus dlcva8898-59-68 02:25:00* Test Item Value Reference Range Interpretation Comments Adenovirus (PCR) (test code = 926428287) NOT DETECTED NOT DETECT [facility] WestFluoroscopic procedure less than one hour xqekzuie6983-20-40 02:25:00* Test Item Value Reference Range Interpretation [...] management decisions. This sample was tested at [facility] using the [employer] Film[employer] ray Respiratory Panel. It is FDA cleared and has been verified and approved by [facility] for clinical use on nasopharyngeal swa b specimens.ALL RESPIRATORY VIRAL PANEL Testing performed at [place], [place] [address]RESULTS HAVE BEEN CALLED [facility] less than one hour odvzbpbq1625-84-81 02:25:00* Test Item Value Reference Range Interpretation Comments Coronavirus Type HKU1 (PCR) (test code = Coronavirus T ype HKU1 (PCR)) NOT DETECTED NOT DETECT [facility] WestFluoroscopic procedure less than one hour xperyagp1532-83-14 02:25:00* Test Item Value Reference Range Interpretation Comments Coronavirus Type NL63 (PCR) (test code = Coronavirus T ype NL63 (PCR)) NOT DETECTED NOT DETECT [facility]Fluor[facility] procedure less than one hour cjainlko9672-78-35 02:25:00* Test Item Value Reference Range Interpretation Comments Coronavirus Type OC43 (PCR) (test code = Coronavirus T ype OC43 (PCR)) NOT DETECTED NOT DETECT [facility] antigen detection in jhpymo8344-02-12 02:25:00* Test Item Value Reference Range Interpretation Comments Group A Streptococcus Screen (test code = 87578-4) NEGATIVE NEG ATIVE [facility] WestInfluenza virus A and B antigen identification by qdnwljnuzsrkkqkjdg0098-04-81 02:25:00* Test Item Value Reference Range Interpretation Comments Influenza Virus Types A,B Antigen (test code = 67909-5) NEGATIVE NEGATIVE [facility] WestFluoroscopic procedure less than one hour kdyyxdbo9288-18-36 02:25:00* Test Item Value Reference Range Interpretation Comments Chlamydia pneumoniae DNA (PCR) (test code = Chlamydia pneumoniae DNA (PCR)) NOT DETECTED NOT DETECT [facility] WestRespiratory virus ewrxz2513-26-02 02:25:00* Test Item Value Reference Range Interpretation Comments Influenza Type A (RT-PCR) (test code = 357432873) NOT DETECTED NOT DETECT [facility] WestFluoroscopic procedure less than one hour qzqnukny5695-75-24 02:25:00* Test Item Value Reference Range Interpretation Comments Mycoplasma pneumoniae (PCR) (test code = Mycoplasma pn eumoniae (PCR)) NOT DETECTED NOT DETECT [facility] WestRespiratory virus qmbif5812-17-87 02:25:00* Test Item Value Reference Range Interpretation Comments Influenza Type B (RT-PCR) (test code = 669523256) NOT DETECTED NOT DETECT [facility] WestRespiratory virus pbjww6227-04-31 02:25:00* Test Item Value Reference Range Interpretation Comments Respiratory Syncytial Virus (PCR) (test code = 329791487) NO T DETECTED NOT DETECT [facility] WestRespiratory virus egpqi8066-63-35 02:25:00* Test Item Value Reference Range Interpretation Comments Bordetella pertussis DNA (PCR) (test code = 703106231) NOT DETEC [place] NOT DETECT [facility] WestRespiratory virus bbdnx5849-79-38 02:25:00* Test Item Value Reference Range Interpretation Comments Parainfluenza Type 1 (PCR) (test code = 936932528) NOT DETECTED NOT DETECT [facility] WestRespiratory virus tnoog9755-58-72 02:25:00* Test Item Value Reference Range Interpretation Comments Parainfluenza Type 2 (PCR) (test code = 633958384) NOT DETECTED NOT DETECT [facility] WestRespiratory virus zfzqs5540-30-00 02:25:00* Test Item Value Reference Range Interpretation Comments Parainfluenza Type 3 (PCR) (test code = 765520048) NOT DETECTED NOT DETECT [facility] WestFluoroscopic procedure less than one hour olybtghb9119-21-54 02:25:00* Test Item Value Reference Range Interpretation Comments Parainfluenza Type 4 (PCR) (test code = Parainfluenza Type 4 (PCR)) NOT DETECTED NOT DETECT [facility] WestRespiratory virus sxinr1260-04-53 02:25:00* Test Item Value Reference Range Interpretation Comments Rhinovirus (PCR) (test code = 857094618) NOT DETECTED NOT DETECT [facility] WestRespiratory virus envbv7323-22-92 02:25:00* Test Item Value Reference Range Interpretation Comments Human Metapneumovirus (PCR) (test code = 426749947) NOT DETECTED NO T DETECT [facility] WestRespiratory virus expjo9153-19-79 02:25:00* Test Item Value Reference Range Interpretation Comments Adenovirus (PCR) (test code = 739442289) NOT DETECTED NOT DETECT [facility] WestFluoroscopic procedure less than one hour rhwgfawd2695-09-77 02:25:00* Test Item Value Reference Range Interpretation [...] management decisions. This sample was tested at [facility] using the [employer] ray Respiratory Panel. It is FDA cleared and has been verified and approved by [facility] for clinical use on nasopharyngeal swa b specimens.ALL RESPIRATORY VIRAL PANEL Testing performed at [facility] [id number] [place] [address] [id number] HAVE BEEN CALLED TO [facility] than one hour hqhegfvy1754-52-93 02:25:00* Test Item Value Reference Range Interpretation Comments Coronavirus Type HKU1 (PCR) (test code = Coronavirus T ype HKU1 (PCR)) NOT DETECTED NOT DETECT [facility] WestFluoroscopic procedure less than one hour wufprjfb1914-57-68 02:25:00* Test Item Value Reference Range Interpretation Comments Coronavirus Type NL63 (PCR) (test code = Coronavirus T ype NL63 (PCR)) NOT DETECTED NOT DETECT [facility] WestFluoroscopic procedure less than one hour kgggcabe5507-96-61 02:25:00* Test Item Value Reference Range Interpretation Comments Coronavirus Type OC43 (PCR) (test code = Coronavirus T ype OC43 (PCR)) NOT DETECTED NOT DETECT [facility]pt[facility] pyogenes antigen detection in codmun2386-10-91 02:25:00* Test Item Value Reference Range Interpretation Comments Group A Streptococcus Screen (test code = 58250-9) NEGATIVE NEG ATIVE [facility] WestInfluenza virus A and B antigen identification by gwisdvtgblzufafdzv1507-30-96 02:25:00* Test Item Value Reference Range Interpretation Comments Influenza Virus Types A,B Antigen (test code = 82167-9) NEGATIVE NEGATIVE [facility] WestFluoroscopic procedure less than one hour nfkpkapy0854-63-41 02:25:00* Test Item Value Reference Range Interpretation Comments Chlamydia pneumoniae DNA (PCR) (test code = Chlamydia pneumoniae DNA (PCR)) NOT DETECTED NOT DETECT [facility] WestRespiratory virus ipmqn1498-52-37 02:25:00* Test Item Value Reference Range Interpretation Comments Influenza Type A (RT-PCR) (test code = 872516302) NOT DETECTED NOT DETECT [facility] WestFluoroscopic procedure less than one hour fofsofrn2650-66-97 02:25:00* Test Item Value Reference Range Interpretation Comments Mycoplasma pneumoniae (PCR) (test code = Mycoplasma pn eumoniae (PCR)) NOT DETECTED NOT DETECT [facility] WestRespiratory virus lytzv0978-15-46 02:25:00* Test Item Value Reference Range Interpretation Comments Influenza Type B (RT-PCR) (test code = 253218870) NOT DETECTED NOT DETECT [facility] WestRespiratory virus bagpl5584-08-89 02:25:00* Test Item Value Reference Range Interpretation Comments Respiratory Syncytial Virus (PCR) (test code = 758025840) NO T DETECTED NOT DETECT [facility] WestRespiratory virus veupf4498-68-85 02:25:00* Test Item Value Reference Range Interpretation Comments Bordetella pertussis DNA (PCR) (test code = 281062123) NOT DETEC [place] NOT DETECT [facility] WestRespiratory virus vnphy6296-21-16 02:25:00* Test Item Value Reference Range Interpretation Comments Parainfluenza Type 1 (PCR) (test code = 409039791) NOT DETECTED NOT DETECT [facility] WestRespiratory virus ckcux6235-35-41 02:25:00* Test Item Value Reference Range Interpretation Comments Parainfluenza Type 2 (PCR) (test code = 361672367) NOT DETECTED NOT DETECT [facility] WestRespiratory virus udwjn4064-68-74 02:25:00* Test Item Value Reference Range Interpretation Comments Parainfluenza Type 3 (PCR) (test code = 954886117) NOT DETECTED NOT DETECT [facility] WestFluoroscopic procedure less than one hour obsknplp6353-12-73 02:25:00* Test Item Value Reference Range Interpretation Comments Parainfluenza Type 4 (PCR) (test code = Parainfluenza Type 4 (PCR)) NOT DETECTED NOT DETECT [facility] WestRespiratory virus jqlpl0469-07-90 02:25:00* Test Item Value Reference Range Interpretation Comments Rhinovirus (PCR) (test code = 446229184) NOT DETECTED NOT DETECT [facility] WestRespiratory virus lfzmx9717-76-77 02:25:00* Test Item Value Reference Range Interpretation Comments Human Metapneumovirus (PCR) (test code = 018772646) NOT DETECTED NO T DETECT [facility] WestRespiratory virus stpix1361-25-29 02:25:00* Test Item Value Reference Range Interpretation Comments Adenovirus (PCR) (test code = 613802937) NOT DETECTED NOT DETECT [facility] WestFluoroscopic procedure less than one hour uvmtorjf6005-80-44 02:25:00* Test Item Value Reference Range Interpretation [...] management decisions. This sample was tested at [facility] using the [employer] Film[employer] ray Respiratory Panel. It is FDA cleared and has been verified and approved by t [facility] for clinical use on nasopharyngeal swa b specimens.ALL RESPIRATORY VIRAL PANEL Testing performed at [address] [address]TRIOXJZ [facility] BEEN [facility] ezwbqtsg1763-85-26 02:25:00* Test Item Value Reference Range Interpretation Comments Coronavirus Type HKU1 (PCR) (test code = Coronavirus T ype HKU1 (PCR)) NOT DETECTED NOT DETECT [facility] WestFluoroscopic procedure less than one hour snkofxhp3554-92-84 02:25:00* Test Item Value Reference Range Interpretation Comments Coronavirus Type NL63 (PCR) (test code = Coronavirus T ype NL63 (PCR)) NOT DETECTED NOT DETECT [facility] WestFluoroscopic procedure less than one hour dfqztbsa3110-85-09 02:25:00* Test Item Value Reference Range Interpretation Comments Coronavirus Type OC43 (PCR) (test code = Coronavirus T ype OC43 (PCR)) NOT DETECTED NOT DETECT [facility]trept[facility] pyogenes antigen detection in iamktx7835-60-02 02:25:00* Test Item Value Reference Range Interpretation Comments Group A Streptococcus Screen (test code = 55350-6) NEGATIVE NEG ATIVE [facility] WestInfluenza virus A and B antigen identification by bmrtobordknwmvrtxd7619-91-95 02:25:00* Test Item Value Reference Range Interpretation Comments Influenza Virus Types A,B Antigen (test code = 01569-3) NEGATIVE NEGATIVE [facility] WestFluoroscopic procedure less than one hour qprkpfgj3501-47-46 02:25:00* Test Item Value Reference Range Interpretation Comments Chlamydia pneumoniae DNA (PCR) (test code = Chlamydia pneumoniae DNA (PCR)) NOT DETECTED NOT DETECT [facility] WestRespiratory virus oyhib5947-65-95 02:25:00* Test Item Value Reference Range Interpretation Comments Influenza Type A (RT-PCR) (test code = 778536577) NOT DETECTED NOT DETECT [facility] WestFluoroscopic procedure less than one hour wskmkbpm1669-24-24 02:25:00* Test Item Value Reference Range Interpretation Comments Mycoplasma pneumoniae (PCR) (test code = Mycoplasma pn eumoniae (PCR)) NOT DETECTED NOT DETECT [facility] WestRespiratory virus hsfux5993-73-43 02:25:00* Test Item Value Reference Range Interpretation Comments Influenza Type B (RT-PCR) (test code = 123868020) NOT DETECTED NOT DETECT [facility] WestRespiratory virus ohove1200-44-55 02:25:00* Test Item Value Reference Range Interpretation Comments Respiratory Syncytial Virus (PCR) (test code = 359822167) NO T DETECTED NOT DETECT [facility] WestRespiratory virus ieysy8076-98-24 02:25:00* Test Item Value Reference Range Interpretation Comments Bordetella pertussis DNA (PCR) (test code = 971072625) NOT DETEC [place] NOT DETECT [facility] WestRespiratory virus nvqcl0960-69-47 02:25:00* Test Item Value Reference Range Interpretation Comments Parainfluenza Type 1 (PCR) (test code = 836943446) NOT DETECTED NOT DETECT [facility] WestRes[facility] virus ybpfv0679-90-49 02:25:00* Test Item Value Reference Range Interpretation Comments Parainfluenza Type 2 (PCR) (test code = 185301370) NOT DETECTED NOT DETECT [facility] WestRespiratory virus xwndx4133-45-73 02:25:00* Test Item Value Reference Range Interpretation Comments Parainfluenza Type 3 (PCR) (test code = 269542991) NOT DETECTED NOT DETECT [facility] WestFluoroscopic procedure less than one hour veshvxer7313-32-88 02:25:00* Test Item Value Reference Range Interpretation Comments Parainfluenza Type 4 (PCR) (test code = Parainfluenza Type 4 (PCR)) NOT DETECTED NOT DETECT [facility] WestRes[facility] virus xyali4572-50-34 02:25:00* Test Item Value Reference Range Interpretation Comments Rhinovirus (PCR) (test code = 120226861) NOT DETECTED NOT DETECT [facility] WestRespiratory virus zgnol7662-21-26 02:25:00* Test Item Value Reference Range Interpretation Comments Human Metapneumovirus (PCR) (test code = 681610775) NOT DETECTED NO T DETECT [facility] WestRes[facility] virus xxxwa9449-39-77 02:25:00* Test Item Value Reference Range Interpretation Comments Adenovirus (PCR) (test code = 796351915) NOT DETECTED NOT DETECT [facility] WestFluoroscopic procedure less than one hour utrhzufo0476-88-73 02:25:00* Test Item Value Reference Range Interpretation [...] management decisions. This sample was tested at [facility] using the [employer]Ar ray Respiratory Panel. It is FDA cleared and has been verified and approved by [facility] for clinical use on nasopharyngeal swa b specimens.ALL RESPIRATORY VIRAL PANEL Testing performed at [address] [address]LOVVQUX HAVE BEEN [facility]ED [facility]Flu[facility] less than one hour axprkgix9016-15-80 02:25:00* Test Item Value Reference Range Interpretation Comments Coronavirus Type HKU1 (PCR) (test code = Coronavirus T ype HKU1 (PCR)) NOT DETECTED NOT DETECT [facility] WestFluoroscopic procedure less than one hour ifmodbxc1943-37-84 02:25:00* Test Item Value Reference Range Interpretation Comments Coronavirus Type NL63 (PCR) (test code = Coronavirus T ype NL63 (PCR)) NOT DETECTED NOT DETECT [facility] WestFluoroscopic procedure less than one hour cplwivuh0120-41-50 02:25:00* Test Item Value Reference Range Interpretation Comments Coronavirus Type OC43 (PCR) (test code = Coronavirus T ype OC43 (PCR)) NOT DETECTED NOT DETECT [facility] Hospitaltrept[facility] pyogenes antigen detection in dbjuzl8986-53-95 02:25:00* Test Item Value Reference Range Interpretation Comments Group A Streptococcus Screen (test code = 88172-7) NEGATIVE NEG ATIVE [facility] WestUrine color ycqwwgwvgxajt4866-61-24 02:20:00* Test Item Value Reference Range Interpretation Comments Urine Color (test code = 5778-6) ASHISH YELLOW [facility] WestUrine xovrrtm6602-06-26 02:20:00* Test Item Value Reference Range Interpretation Comments Urine Clarity (test code = 63015-0) HAZY CLEAR [facility] Hospitalpecific gravity of Urine by Test strip 2019-08-13 02:20:00* Test Item Value Reference Range Interpretation Comments Urine Specific [place] (test code = 5811-5) 1.030 1.010-1.02 5 [facility] WestU[facility] pH measurement by automated test yyuyo0752-28-08 02:20:00* Test Item Value Reference Range Interpretation Comments Urine pH (test code = 01743-6) 6 5-7 [facility] WestU[facility] leukocyte esterase detection by btvoftvs7021-27-49 02:20:00* Test Item Value Reference Range Interpretation Comments Urine Leukocyte Esterase (test code = 5799-2) NEGATIVE NEGATIVE [facility] WestUrine nitrite tntaqerqg9485-02-46 02:20:00* Test Item Value Reference Range Interpretation Comments Urine Nitrite (test code = 33410-0) NEGATIVE NEGATIVE [facility] WestUrine protein measurement by test strip (mass/volume)2019-08-13 02:20:00* Test Item Value Reference Range Interpretation Comments Urine Protein (test code = 5804-0) 2+ NEGATIVE [facility] WestUrine glucose bzbruzmtx2152-81-32 02:20:00* Test Item Value Reference Range Interpretation Comments Urine Glucose (UA) (test code = 2349-9) NEGATIVE NEGATIVE [facility] WestUrine ketones detection by automated test pgord9734-96-18 02:20:00* Test Item Value Reference Range Interpretation Comments Urine Ketones (test code = 93339-0) NEGATIVE NEGATIVE [facility] WestUrine urobilinogen measurement by test strip (mass/volume)2019-08-13 02:20:00* Test Item Value Reference Range Interpretation Comments Urine Urobilinogen (test code = 68413-2) 1 0.2-1 [facility] WestU[facility] total bilirubin measurement (mass/volume)2019-08-13 02:20:00* Test Item Value Reference Range Interpretation Comments Urine Bilirubin (test code = 1978-6) NEGATIVE NEGATIVE [facility] WestUrine erythrocytes ggovrmtlb5654-19-13 02:20:00* Test Item Value Reference Range Interpretation Comments Urine Blood (test code = 68038-8) NEGATIVE NEGATIVE [facility] WestAutomated urine sediment leukocyte count by microscopy (number/high power field)2019-08-13 02:20:00* Test Item Value Reference Range Interpretation Comments Urine WBC (test code = 5821-4) 0-5 0-5 [facility] WestErythrocytes detection in urine sediment by light uptfsksodv2471-40-86 02:20:00* Test Item Value Reference Range Interpretation Comments Urine RBC (test code = 40462-1) NONE 0-5 [facility] WestBacteria detection in urine sediment by light dpkxcsznzg9596-04-52 02:20:00* Test Item Value Reference Range Interpretation Comments Urine Bacteria (test code = 52142-4) FEW NONE [facility] WestEpithelial cells detection in urine sediment by light cpgygbobtd4382-95-79 02:20:00* Test Item Value Reference Range Interpretation Comments Urine Epithelial Cells (test code = 05798-9) FEW NONE [facility] WestActivated Partial Thromboplast Time 2019-08-13 02:10:00* Test Item Value Reference Range Interpretation Comments Activated Partial Thromboplast Time (test code = 56153-4) 32.7 23.8-35.5 [facility] WestArterial Blood lA9809-58-54 02:09:00* Test Item Value Reference Range Interpretation Comments Arterial Blood pH (test code = 2744-1) 7.49 7.31-7.41 H [facility] WestArterial Blood Partial Pressure CO2 2019-08-13 02:09:00* Test Item Value Reference Range Interpretation Comments Arterial Blood Partial Pressure CO2 (test code = 2019-8) 32 35-45 L [facility] WestArterial Blood YYP92568-88-46 02:09:00* Test Item Value Reference Range Interpretation Comments Arterial Blood HCO3 (test code = 1960-4) 25 23-28 [facility] WestArterial Blood Base Vwphyc9426-78-01 02:09:00* Test Item Value Reference Range Interpretation Comments Arterial Blood Base Excess (test code = 1925-7) 1.0 -2-3 [facility] WestFiO22020-04-04 02:09:00* Test Item Value Reference Range Interpretation Comments FiO2 (test code = FiO2) 80 40 VENTURI SET UPHCA [facility] WestFluoroscopic procedure less than one hour ibegudek1406-39-13 02:00:00* Test Item Value Reference Range Interpretation [...] to perform high complexity tests.Specimen sent to [facility] and testing performed by Clinical Pathology [address] [place], [place] [phone] Director: Jose Alberto M.D.[facility] # 4 [id number] [facility] CenterFluor[facility] less than one hour oszrxyvt0523-05-26 02:00:00* Test Item Value Reference Range Interpretation [...] to perform high complexity tests.Specimen sent to [facility] and testing performed by [facility] Pathology [address] [place] [address] [phone] Director: Jose Alberto M.D.CLIA # 4 [id number] [facility] CenterFluoroscopic procedure less than one hour imtyccji3969-88-43 02:00:00* Test Item Value Reference Range Interpretation [...] to perform high complexity tests.Specimen sent to [facility] and testing performed by Clinical Pathology [address] [place] [address] [phone] Director: Jose Alberto M.D.CLIA # 4 [id number] [facility] WestFluoroscopic procedure less than one hour xbagihdi7111-44-12 02:00:00* Test Item Value Reference Range Interpretation [...] to perform high complexity tests.Specimen sent to [facility] and testing performed by [facility] Pathology [address] [place] [address] [phone] Director: Jose Alberto M.D.CLIA # 4 [id number] [facility] CenterFluoroscopic procedure less than one hour tcaqsqky6902-22-12 02:00:00* Test Item Value Reference Range Interpretation [...] to perform high complexity tests.Specimen sent to [facility] and testing performed by Clinical Pathology [address] [place] [address] [phone] Director: Jose Alberto M.D.CLIA # 4 [id number] [facility] WestArterial blood pH measurement 2019-08-13 01:40:00* Test Item Value Reference Range Interpretation Comments Arterial Blood pH (test code = 2744-1) 7.49 7.31-7.41 [facility] WestpCO2 NoyY5796-53-80 01:40:00* Test Item Value Reference Range Interpretation Comments Arterial Blood Partial Pressure CO2 (test code = 2019-8) 32 35-45 [facility] WestArterial blood bicarbonate measurement (moles/volume)2019-08-13 01:40:00* Test Item Value Reference Range Interpretation Comments Arterial Blood HCO3 (test code = 1960-4) 25 23-28 [facility] WestArterial blood base excess by calculation 2019-08-13 01:40:00* Test Item Value Reference Range Interpretation Comments Arterial Blood Base Excess (test code = 1925-7) 1.0 -2-3 [facility] WestFluoroscopic procedure less than one hour wfpfzrkv8316-24-44 01:40:00* Test Item Value Reference Range Interpretation Comments FiO2 (test code = FiO2) 80 40 VENTURI SET [facility]Ar[facility] pH cxbxldpyhll6302-36-61 01:40:00* Test Item Value Reference Range Interpretation Comments Arterial Blood pH (test code = 2744-1) 7.49 7.31-7.41 [facility] WestpCO2 JlkZ3742-64-22 01:40:00* Test Item Value Reference Range Interpretation Comments Arterial Blood Partial Pressure CO2 (test code = 2019-8) 32 35-45 [facility] WestArterial blood bicarbonate measurement (moles/volume)2019-08-13 01:40:00* Test Item Value Reference Range Interpretation Comments Arterial Blood HCO3 (test code = 1960-4) 25 23-28 [facility] WestArterial blood base excess by calculation 2019-08-13 01:40:00* Test Item Value Reference Range Interpretation Comments Arterial Blood Base Excess (test code = 1925-7) 1.0 -2-3 [facility] WestFluoroscopic procedure less than one hour trzuuocu0585-16-62 01:40:00* Test Item Value Reference Range Interpretation Comments FiO2 (test code = FiO2) 80 40 VENTURI SET [facility] HospitalArterial blood pH poqwfwreibe9955-14-33 01:40:00* Test Item Value Reference Range Interpretation Comments Arterial Blood pH (test code = 2744-1) 7.49 7.31-7.41 [facility] WestpCO2 AdcB8746-80-20 01:40:00* Test Item Value Reference Range Interpretation Comments Arterial Blood Partial Pressure CO2 (test code = 2019-8) 32 35-45 [facility] WestArterial blood bicarbonate measurement (moles/volume)2019-08-13 01:40:00* Test Item Value Reference Range Interpretation Comments Arterial Blood HCO3 (test code = 1960-4) 25 23-28 [facility] WestArterial blood base excess by calculation 2019-08-13 01:40:00* Test Item Value Reference Range Interpretation Comments Arterial Blood Base Excess (test code = 1925-7) 1.0 -2-3 [facility] WestFluoroscopic procedure less than one hour qvhqmzpd3815-41-72 01:40:00* Test Item Value Reference Range Interpretation Comments FiO2 (test code = FiO2) 80 40 VENTURI SET [facility] HospitalArterial blood pH blbinatikjz4900-85-96 01:40:00* Test Item Value Reference Range Interpretation Comments Arterial Blood pH (test code = 2744-1) 7.49 7.31-7.41 [facility]CO[facility] [id number] 01:40:00* Test Item Value Reference Range Interpretation Comments Arterial Blood Partial Pressure CO2 (test code = 2019-8) 32 35-45 [facility] WestArterial blood bicarbonate measurement (moles/volume)2019-08-13 01:40:00* Test Item Value Reference Range Interpretation Comments Arterial Blood HCO3 (test code = 1960-4) 25 23-28 [facility] WestAr[facility] blood base excess by calculation 2019-08-13 01:40:00* Test Item Value Reference Range Interpretation Comments Arterial Blood Base Excess (test code = 1925-7) 1.0 -2-3 [facility] WestFluoroscopic procedure less than one hour utjkdyql7382-80-06 01:40:00* Test Item Value Reference Range Interpretation Comments FiO2 (test code = FiO2) 80 40 VENTURI SET [facility] ojmjocslvlo1895-62-66 01:40:00* Test Item Value Reference Range Interpretation Comments Arterial Blood pH (test code = 2744-1) 7.49 7.31-7.41 [facility]pCO2 BevR6993-18-60 01:40:00* Test Item Value Reference Range Interpretation Comments Arterial Blood Partial Pressure CO2 (test code = 2019-8) 32 35-45 [facility] WestArterial blood bicarbonate measurement (moles/volume)2019-08-13 01:40:00* Test Item Value Reference Range Interpretation Comments Arterial Blood HCO3 (test code = 1960-4) 25 23-28 [facility]Ar[facility] blood base excess by calculation 2019-08-13 01:40:00* Test Item Value Reference Range Interpretation Comments Arterial Blood Base Excess (test code = 1925-7) 1.0 -2-3 [facility] WestFluoroscopic procedure less than one hour mxpfzmmb0857-61-84 01:40:00* Test Item Value Reference Range Interpretation Comments FiO2 (test code = FiO2) 80 40 VENTURI SET [facility] WestActivated partial thromboplastin time (aPTT) in platelet poor plasma by coagulation assay 2019-08-13 01:25:00* Test Item Value Reference Range Interpretation Comments Activated Partial Thromboplast Time (test code = 54875-0) 32.7 23.8-35.5 [facility] WestInfluenza virus A and B antigen identification by hrrjrejaqyhpkkbrif9445-83-12 01:25:00* Test Item Value Reference Range Interpretation Comments Influenza Virus Types A,B Antigen (test code = 59620-5) NEGATIVE NEGATIVE [facility] WestFluoroscopic procedure less than one hour hdrrgjga4043-91-62 01:25:00* Test Item Value Reference Range Interpretation Comments Chlamydia pneumoniae DNA (PCR) (test code = Chlamydia pneumoniae DNA (PCR)) NOT DETECTED NOT DETECT [facility] WestRespiratory virus ihryn4361-63-42 01:25:00* Test Item Value Reference Range Interpretation Comments Influenza Type A (RT-PCR) (test code = 046845579) NOT DETECTED NOT DETECT [facility] WestFluoroscopic procedure less than one hour xrgduqtf2239-28-69 01:25:00* Test Item Value Reference Range Interpretation Comments Mycoplasma pneumoniae (PCR) (test code = Mycoplasma pn eumoniae (PCR)) NOT DETECTED NOT DETECT [facility] WestRespiratory virus ggyrx2602-00-65 01:25:00* Test Item Value Reference Range Interpretation Comments Influenza Type B (RT-PCR) (test code = 677237632) NOT DETECTED NOT DETECT [facility] WestRespiratory virus fpqmx7961-18-92 01:25:00* Test Item Value Reference Range Interpretation Comments Respiratory Syncytial Virus (PCR) (test code = 078148549) NO T DETECTED NOT DETECT [facility] WestRespiratory virus idzng2584-70-77 01:25:00* Test Item Value Reference Range Interpretation Comments Bordetella pertussis DNA (PCR) (test code = 230109673) NOT DETEC [place] NOT DETECT [facility] cgkct9383-57-77 01:25:00* Test Item Value Reference Range Interpretation Comments Parainfluenza Type 1 (PCR) (test code = 728235535) NOT DETECTED NOT DETECT [facility] WestRespiratory virus odjwv3580-11-34 01:25:00* Test Item Value Reference Range Interpretation Comments Parainfluenza Type 2 (PCR) (test code = 742797765) NOT DETECTED NOT DETECT [facility] srvfx4723-85-10 01:25:00* Test Item Value Reference Range Interpretation Comments Parainfluenza Type 3 (PCR) (test code = 160266130) NOT DETECTED NOT DETECT [facility] WestFluoroscopic procedure less than one hour onzaxjew3586-12-02 01:25:00* Test Item Value Reference Range Interpretation Comments Parainfluenza Type 4 (PCR) (test code = Parainfluenza Type 4 (PCR)) NOT DETECTED NOT DETECT [facility] WestRespiratory virus mgaax2894-92-29 01:25:00* Test Item Value Reference Range Interpretation Comments Rhinovirus (PCR) (test code = 862988126) NOT DETECTED NOT DETECT [facility] WestRespiratory virus ybxkm6554-71-56 01:25:00* Test Item Value Reference Range Interpretation Comments Human Metapneumovirus (PCR) (test code = 325080941) NOT DETECTED NO T DETECT [facility] WestRespiratory virus ndveg5321-32-07 01:25:00* Test Item Value Reference Range Interpretation Comments Adenovirus (PCR) (test code = 769730136) NOT DETECTED NOT DETECT [facility] WestFluoroscopic procedure less than one hour boqdjdqi9335-01-56 01:25:00* Test Item Value Reference Range Interpretation [...] management decisions. This sample was tested at [facility] using the [employer] Film[employer] ray Respiratory Panel. It is FDA cleared and has been verified and approved by [facility] for clinical use on nasopharyngeal swa b specimens.ALL RESPIRATORY VIRAL PANEL Testing performed at [facility] [place] [id number] [facility] BEEN [facility] blyjuydr4546-70-36 01:25:00* Test Item Value Reference Range Interpretation Comments Coronavirus Type HKU1 (PCR) (test code = Coronavirus T ype HKU1 (PCR)) NOT DETECTED NOT DETECT [facility] WestFluoroscopic procedure less than one hour jgzuslxc2984-89-13 01:25:00* Test Item Value Reference Range Interpretation Comments Coronavirus Type NL63 (PCR) (test code = Coronavirus T ype NL63 (PCR)) NOT DETECTED NOT DETECT [facility] WestFluoroscopic procedure less than one hour yeqdswew6262-62-38 01:25:00* Test Item Value Reference Range Interpretation Comments Coronavirus Type OC43 (PCR) (test code = Coronavirus T ype OC43 (PCR)) NOT DETECTED NOT DETECT [facility]ogenes antigen detection in etdfae9561-77-14 01:25:00* Test Item Value Reference Range Interpretation Comments Group A Streptococcus Screen (test code = 89474-5) NEGATIVE NEG ATIVE [facility] WestBlood ryvfomu0142-42-19 01:25:00* Test Item Value Reference Range Interpretation Comments Blood Culture (test code = 25411390) NO GROWTH AFTER 5 DAYS, FINAL REPORT [facility] WestInfluenza virus A and B antigen identification by bfevhwodfaizmrexmr6034-05-86 01:25:00* Test Item Value Reference Range Interpretation Comments Influenza Virus Types A,B Antigen (test code = 11820-8) NEGATIVE NEGATIVE [facility] WestFluoroscopic procedure less than one hour vlzajbdd6195-37-76 01:25:00* Test Item Value Reference Range Interpretation Comments Chlamydia pneumoniae DNA (PCR) (test code = Chlamydia pneumoniae DNA (PCR)) NOT DETECTED NOT DETECT [facility] qchau4939-26-40 01:25:00* Test Item Value Reference Range Interpretation Comments Influenza Type A (RT-PCR) (test code = 108851848) NOT DETECTED NOT DETECT [facility] xgfencbv9665-40-57 01:25:00* Test Item Value Reference Range Interpretation Comments Mycoplasma pneumoniae (PCR) (test code = Mycoplasma pn eumoniae (PCR)) NOT DETECTED NOT DETECT [facility] fsmnd3997-94-50 01:25:00* Test Item Value Reference Range Interpretation Comments Influenza Type B (RT-PCR) (test code = 365285390) NOT DETECTED NOT DETECT [facility]Res[facility] rarzr0476-74-25 01:25:00* Test Item Value Reference Range Interpretation Comments Respiratory Syncytial Virus (PCR) (test code = 357870668) NO T DETECTED NOT DETECT [facility] pfbde3136-43-02 01:25:00* Test Item Value Reference Range Interpretation Comments Bordetella pertussis DNA (PCR) (test code = 263602459) NOT DETEC [place] NOT DETECT [facility] WestRespiratory virus wnlsm5921-82-54 01:25:00* Test Item Value Reference Range Interpretation Comments Parainfluenza Type 1 (PCR) (test code = 201602013) NOT DETECTED NOT DETECT [facility] apxde1370-97-43 01:25:00* Test Item Value Reference Range Interpretation Comments Parainfluenza Type 2 (PCR) (test code = 860265038) NOT DETECTED NOT DETECT [facility] pmhtd5568-82-37 01:25:00* Test Item Value Reference Range Interpretation Comments Parainfluenza Type 3 (PCR) (test code = 673283766) NOT DETECTED NOT DETECT [facility] WestFluoroscopic procedure less than one hour qlkqqdni3169-43-44 01:25:00* Test Item Value Reference Range Interpretation Comments Parainfluenza Type 4 (PCR) (test code = Parainfluenza Type 4 (PCR)) NOT DETECTED NOT DETECT [facility] WestRespiratory virus evsvh3108-83-47 01:25:00* Test Item Value Reference Range Interpretation Comments Rhinovirus (PCR) (test code = 959461948) NOT DETECTED NOT DETECT [facility] WestRespiratory virus qjfhl7159-79-44 01:25:00* Test Item Value Reference Range Interpretation Comments Human Metapneumovirus (PCR) (test code = 492063854) NOT DETECTED NO T DETECT [facility] WestRespiratory virus pzxyt1096-47-14 01:25:00* Test Item Value Reference Range Interpretation Comments Adenovirus (PCR) (test code = 382528458) NOT DETECTED NOT DETECT [facility] WestFluoroscopic procedure less than one hour jmmqpwvk2601-27-17 01:25:00* Test Item Value Reference Range Interpretation [...] management decisions. This sample was tested at [facility] using the [employer] Film[employer] ray Respiratory Panel. It is FDA cleared and has been verified and approved by [facility] for clinical use on nasopharyngeal swa b specimens.ALL RESPIRATORY VIRAL PANEL Testing performed at [address] [address]NRLCUMW HAVE BEEN [facility]ED [facility]Flu[facility] less than one hour modtuogr6519-73-13 01:25:00* Test Item Value Reference Range Interpretation Comments Coronavirus Type HKU1 (PCR) (test code = Coronavirus T ype HKU1 (PCR)) NOT DETECTED NOT DETECT [facility] WestFluoroscopic procedure less than one hour [id number] 01:25:00* Test Item Value Reference Range Interpretation Comments Coronavirus Type NL63 (PCR) (test code = Coronavirus T ype NL63 (PCR)) NOT DETECTED NOT DETECT [facility] WestFluoroscopic procedure less than one hour ekdjvgkv4699-42-10 01:25:00* Test Item Value Reference Range Interpretation Comments Coronavirus Type OC43 (PCR) (test code = Coronavirus T ype OC43 (PCR)) NOT DETECTED NOT DETECT [facility]trept[facility] pyogenes antigen detection in zydgji5104-73-71 01:25:00* Test Item Value Reference Range Interpretation Comments Group A Streptococcus Screen (test code = 99515-4) NEGATIVE NEG ATIVE [facility] WestBlood fxiosfw5791-42-17 01:25:00* Test Item Value Reference Range Interpretation Comments Blood Culture (test code = 19754238) NO GROWTH AFTER 5 DAYS, FINAL REPORT [facility] WestInfluenza virus A and B antigen identification by ekltfqwuxqdkxdgfvz7661-85-70 01:25:00* Test Item Value Reference Range Interpretation Comments Influenza Virus Types A,B Antigen (test code = 93736-4) NEGATIVE NEGATIVE [facility] WestFluoroscopic procedure less than one hour ooahruyf1583-13-84 01:25:00* Test Item Value Reference Range Interpretation Comments Chlamydia pneumoniae DNA (PCR) (test code = Chlamydia pneumoniae DNA (PCR)) NOT DETECTED NOT DETECT [facility] WestRespiratory virus opiae6338-87-95 01:25:00* Test Item Value Reference Range Interpretation Comments Influenza Type A (RT-PCR) (test code = 838758831) NOT DETECTED NOT DETECT [facility] WestFluoroscopic procedure less than one hour ocwwaorr1140-29-06 01:25:00* Test Item Value Reference Range Interpretation Comments Mycoplasma pneumoniae (PCR) (test code = Mycoplasma pn eumoniae (PCR)) NOT DETECTED NOT DETECT [facility] WestRespiratory virus gqweu7900-08-31 01:25:00* Test Item Value Reference Range Interpretation Comments Influenza Type B (RT-PCR) (test code = 343310270) NOT DETECTED NOT DETECT [facility] WestRes[facility] virus zasel6701-68-67 01:25:00* Test Item Value Reference Range Interpretation Comments Respiratory Syncytial Virus (PCR) (test code = 187323016) NO T DETECTED NOT DETECT [facility] WestRespiratory virus gtooa8128-90-07 01:25:00* Test Item Value Reference Range Interpretation Comments Bordetella pertussis DNA (PCR) (test code = 014334815) NOT DETEC [place]LL NOT DETECT [facility] WestRespiratory virus vasur5584-06-14 01:25:00* Test Item Value Reference Range Interpretation Comments Parainfluenza Type 1 (PCR) (test code = 182255156) NOT DETECTED NOT DETECT [facility] WestRespiratory virus yiwrv9756-80-08 01:25:00* Test Item Value Reference Range Interpretation Comments Parainfluenza Type 2 (PCR) (test code = 350083995) NOT DETECTED NOT DETECT [facility] WestRespiratory virus mecow2795-55-32 01:25:00* Test Item Value Reference Range Interpretation Comments Parainfluenza Type 3 (PCR) (test code = 886622560) NOT DETECTED NOT DETECT [facility] WestFluoroscopic procedure less than one hour hgphthun6836-54-05 01:25:00* Test Item Value Reference Range Interpretation Comments Parainfluenza Type 4 (PCR) (test code = Parainfluenza Type 4 (PCR)) NOT DETECTED NOT DETECT [facility] WestRes[facility] virus bkunu7818-85-68 01:25:00* Test Item Value Reference Range Interpretation Comments Rhinovirus (PCR) (test code = 631562123) NOT DETECTED NOT DETECT [facility] WestRespiratory virus xfehz7065-82-74 01:25:00* Test Item Value Reference Range Interpretation Comments Human Metapneumovirus (PCR) (test code = 136869528) NOT DETECTED NO T DETECT [facility] WestRes[facility] virus ixzkx1589-37-55 01:25:00* Test Item Value Reference Range Interpretation Comments Adenovirus (PCR) (test code = 020845425) NOT DETECTED NOT DETECT [facility] WestFluoroscopic procedure less than one hour nouxtzoo4339-93-15 01:25:00* Test Item Value Reference Range Interpretation [...] management decisions. This sample was tested at [facility] using the [employer] ray Respiratory Panel. It is FDA cleared and has been verified and approved by t [facility] for clinical use on nasopharyngeal swa b specimens.ALL RESPIRATORY VIRAL PANEL Testing performed at [place], [place] [address]RESULTS HAVE BEEN CALLED [facility] less than one hour gwaxsjhi0683-82-55 01:25:00* Test Item Value Reference Range Interpretation Comments Coronavirus Type HKU1 (PCR) (test code = Coronavirus T ype HKU1 (PCR)) NOT DETECTED NOT DETECT [facility] WestFluoroscopic procedure less than one hour qehfrstk2904-37-53 01:25:00* Test Item Value Reference Range Interpretation Comments Coronavirus Type NL63 (PCR) (test code = Coronavirus T ype NL63 (PCR)) NOT DETECTED NOT DETECT [facility] WestFluoroscopic procedure less than one hour tfejaljl2643-20-30 01:25:00* Test Item Value Reference Range Interpretation Comments Coronavirus Type OC43 (PCR) (test code = Coronavirus T ype OC43 (PCR)) NOT DETECTED NOT DETECT [facility] Hospitaltrept[facility] pyogenes antigen detection in qfqvkk3941-09-81 01:25:00* Test Item Value Reference Range Interpretation Comments Group A Streptococcus Screen (test code = 50209-8) NEGATIVE NEG ATIVE [facility] WestInfluenza virus A and B antigen identification by bqppdtckunjaskueug0850-73-40 01:25:00* Test Item Value Reference Range Interpretation Comments Influenza Virus Types A,B Antigen (test code = 11928-1) NEGATIVE NEGATIVE [facility] WestFluoroscopic procedure less than one hour bunqxrbs1333-46-44 01:25:00* Test Item Value Reference Range Interpretation Comments Chlamydia pneumoniae DNA (PCR) (test code = Chlamydia pneumoniae DNA (PCR)) NOT DETECTED NOT DETECT [facility] lgtfp5423-94-04 01:25:00* Test Item Value Reference Range Interpretation Comments Influenza Type A (RT-PCR) (test code = 776051559) NOT DETECTED NOT DETECT [facility] less than one hour sbnnthym0875-42-05 01:25:00* Test Item Value Reference Range Interpretation Comments Mycoplasma pneumoniae (PCR) (test code = Mycoplasma pn eumoniae (PCR)) NOT DETECTED NOT DETECT [facility] CenterRes[facility] ayfey7313-17-38 01:25:00* Test Item Value Reference Range Interpretation Comments Influenza Type B (RT-PCR) (test code = 305703329) NOT DETECTED NOT DETECT [facility] CenterRes[facility] virus bpcsu7109-22-26 01:25:00* Test Item Value Reference Range Interpretation Comments Respiratory Syncytial Virus (PCR) (test code = 422132693) NO T DETECTED NOT DETECT [facility] CenterRes[facility] virus pjfwy5154-02-48 01:25:00* Test Item Value Reference Range Interpretation Comments Bordetella pertussis DNA (PCR) (test code = 136805433) NOT DETEC [place]LL NOT DETECT [facility]Respiratory virus eqtuj2005-60-43 01:25:00* Test Item Value Reference Range Interpretation Comments Parainfluenza Type 1 (PCR) (test code = 681803001) NOT DETECTED NOT DETECT [facility] evlja9951-62-70 01:25:00* Test Item Value Reference Range Interpretation Comments Parainfluenza Type 2 (PCR) (test code = 919018200) NOT DETECTED NOT DETECT [facility] pbpxp4773-43-79 01:25:00* Test Item Value Reference Range Interpretation Comments Parainfluenza Type 3 (PCR) (test code = 617263259) NOT DETECTED NOT DETECT [facility] WestFluoroscopic procedure less than one hour dpvyvfrn1592-27-31 01:25:00* Test Item Value Reference Range Interpretation Comments Parainfluenza Type 4 (PCR) (test code = Parainfluenza Type 4 (PCR)) NOT DETECTED NOT DETECT [facility] WestRes[facility] virus xrxlo3781-20-21 01:25:00* Test Item Value Reference Range Interpretation Comments Rhinovirus (PCR) (test code = 566377793) NOT DETECTED NOT DETECT [facility] WestRespiratory virus kxtwy4646-84-56 01:25:00* Test Item Value Reference Range Interpretation Comments Human Metapneumovirus (PCR) (test code = 009298511) NOT DETECTED NO T DETECT [facility] WestRespiratory virus uqtyk4428-84-42 01:25:00* Test Item Value Reference Range Interpretation Comments Adenovirus (PCR) (test code = 808156111) NOT DETECTED NOT DETECT [facility] WestFluoroscopic procedure less than one hour ecqctpxf8652-10-28 01:25:00* Test Item Value Reference Range Interpretation [...] management decisions. This sample was tested at [facility] using the [employer] Film[employer] ray Respiratory Panel. It is FDA cleared and has been verified and approved by [facility] for clinical use on nasopharyngeal swa b specimens.ALL RESPIRATORY VIRAL PANEL Testing performed at [address] [address]VUYZIWS HAVE BEEN CALLED TO [facility] less than one hour umdejrnf4135-42-39 01:25:00* Test Item Value Reference Range Interpretation Comments Coronavirus Type HKU1 (PCR) (test code = Coronavirus T ype HKU1 (PCR)) NOT DETECTED NOT DETECT [facility] WestFluoroscopic procedure less than one hour gurxnatr1286-31-01 01:25:00* Test Item Value Reference Range Interpretation Comments Coronavirus Type NL63 (PCR) (test code = Coronavirus T ype NL63 (PCR)) NOT DETECTED NOT DETECT [facility] WestFluoroscopic procedure less than one hour jdeklzwt6449-82-27 01:25:00* Test Item Value Reference Range Interpretation Comments Coronavirus Type OC43 (PCR) (test code = Coronavirus T ype OC43 (PCR)) NOT DETECTED NOT DETECT [facility] Hospitaltrept[facility] pyogenes antigen detection in pvsauc1217-06-47 01:25:00* Test Item Value Reference Range Interpretation Comments Group A Streptococcus Screen (test code = 22022-3) NEGATIVE NEG ATIVE [facility] WestInfluenza virus A and B antigen identification by jmlqwazmrmgdvsbntc0708-09-11 01:25:00* Test Item Value Reference Range Interpretation Comments Influenza Virus Types A,B Antigen (test code = 07662-6) NEGATIVE NEGATIVE [facility] WestFluoroscopic procedure less than one hour rgmjgdqt1549-96-01 01:25:00* Test Item Value Reference Range Interpretation Comments Chlamydia pneumoniae DNA (PCR) (test code = Chlamydia pneumoniae DNA (PCR)) NOT DETECTED NOT DETECT [facility] WestRes[facility] virus fdxcd9314-07-48 01:25:00* Test Item Value Reference Range Interpretation Comments Influenza Type A (RT-PCR) (test code = 293790955) NOT DETECTED NOT DETECT [facility] WestFluoroscopic procedure less than one hour bzoanbba7066-43-61 01:25:00* Test Item Value Reference Range Interpretation Comments Mycoplasma pneumoniae (PCR) (test code = Mycoplasma pn eumoniae (PCR)) NOT DETECTED NOT DETECT [facility] WestRespiratory virus wpbrf8178-85-81 01:25:00* Test Item Value Reference Range Interpretation Comments Influenza Type B (RT-PCR) (test code = 525143939) NOT DETECTED NOT DETECT [facility] WestRes[facility] virus pkgjs5598-86-03 01:25:00* Test Item Value Reference Range Interpretation Comments Respiratory Syncytial Virus (PCR) (test code = 593819992) NO T DETECTED NOT DETECT [facility] WestRes[facility] virus gjdzp6449-55-83 01:25:00* Test Item Value Reference Range Interpretation Comments Bordetella pertussis DNA (PCR) (test code = 479821251) NOT DETEC [place] NOT DETECT [facility] ptbgd0130-83-52 01:25:00* Test Item Value Reference Range Interpretation Comments Parainfluenza Type 1 (PCR) (test code = 455068225) NOT DETECTED NOT DETECT [facility]Res[facility] virus qxxai9932-52-24 01:25:00* Test Item Value Reference Range Interpretation Comments Parainfluenza Type 2 (PCR) (test code = 658052692) NOT DETECTED NOT DETECT [facility] vmcgn9722-38-06 01:25:00* Test Item Value Reference Range Interpretation Comments Parainfluenza Type 3 (PCR) (test code = 649695783) NOT DETECTED NOT DETECT [facility] WestFluoroscopic procedure less than one hour illydcbp9341-64-21 01:25:00* Test Item Value Reference Range Interpretation Comments Parainfluenza Type 4 (PCR) (test code = Parainfluenza Type 4 (PCR)) NOT DETECTED NOT DETECT [facility]Res[facility] virus qtoym2701-67-00 01:25:00* Test Item Value Reference Range Interpretation Comments Rhinovirus (PCR) (test code = 853797246) NOT DETECTED NOT DETECT [facility] WestRes[facility] virus nzcai3538-96-37 01:25:00* Test Item Value Reference Range Interpretation Comments Human Metapneumovirus (PCR) (test code = 787859710) NOT DETECTED NO T DETECT [facility]Res[facility] virus mftie4719-07-12 01:25:00* Test Item Value Reference Range Interpretation Comments Adenovirus (PCR) (test code = 106813524) NOT DETECTED NOT DETECT [facility] WestFluoroscopic procedure less than one hour ekfxjeyz3668-76-15 01:25:00* Test Item Value Reference Range Interpretation [...] management decisions. This sample was tested at [facility] using the Agent[employer] Film[employer] ray Respiratory Panel. It is FDA cleared and has been verified and approved by t [facility] for clinical use on nasopharyngeal swa b specimens.ALL RESPIRATORY VIRAL PANEL Testing performed at [facility] [place] [id number] [facility] one hour [id number] 01:25:00* Test Item Value Reference Range Interpretation Comments Coronavirus Type HKU1 (PCR) (test code = Coronavirus T ype HKU1 (PCR)) NOT DETECTED NOT DETECT [facility] one [facility] [id number] 01:25:00* Test Item Value Reference Range Interpretation Comments Coronavirus Type NL63 (PCR) (test code = Coronavirus T ype NL63 (PCR)) NOT DETECTED NOT DETECT [facility] than one hour [id number] 01:25:00* Test Item Value Reference Range Interpretation Comments Coronavirus Type OC43 (PCR) (test code = Coronavirus T ype OC43 (PCR)) NOT DETECTED NOT DETECT [facility] antigen detection in [id number] 01:25:00* Test Item Value Reference Range Interpretation Comments Group A Streptococcus Screen (test code = 04435-0) NEGATIVE NEG ATIVE [facility]
--- NOTE | 2020-03-29 12:59 | Emergency Department Note ---
History of Present Illnes History of Present Illness Chief Complaint: General Medicine Complaints History of Present Illness This is a 44 year old male Chief Complaint Comment PT CAME IN VIA [facility] FROM MED RESORT FOR A PEG TUBE DISLODGEMENT, 2ND VISIT WITHIN THE LAST 36 HRS FOR THE SAME COMPLAINT, PT IS NO DISTRESS. 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 Mode: [facility] Rug Washer Required: No Onset (how long ago): hour(s) Location: Stomach Quality: peg tube dislodgement Radiation: Reports non-radiation Severity: mild Onset quality: sudden Duration (how long): hour(s) Timing of current episode: constant Progression: unchanged Chronicity: recurrent Context: Denies recent illness, Denies recent surgery Relieving factors: none Exacerbating factors: none Associated symptoms: Reports denies other symptoms Treatments prior to arrival: none Past Medical/Family History Physician Review I have reviewed the patient's past medical and family history. Any updates have been documented here. Past Medical History Recent Fever: No Clinical Suspicion of Infectio: No New/Unexplained Change in Ment: No Past Medical History: Diabetes, Anemia, Anxiety, Other Mental Illness Other Medical History: Cerebellar pathology h/o failed suicide attempt with resultant anoxic brain injury Other Surgery: feeding tube Other Last Tetanus: UTD Any Pre-Existing Lines (PICC,: No Review of Systems Review of Systems Constitutional: Reports no symptoms EENTM: Reports no symptoms Cardiovascular: Reports no symptoms Respiratory: Reports no symptoms Gastrointestinal: Reports as per HPI Genitourinary: Reports no symptoms Musculoskeletal: Reports no symptoms Integumentary: Reports no symptoms Neurological: Reports no symptoms Psychological: Reports no symptoms Endocrine: Reports no symptoms Hematological/Lymphatic: Reports no symptoms Physical Exam Related Data Allergies: Coded Allergies: No Known Drug Allergies (Verified Allergy, Unknown, 08/13/19) Triage Vital Signs Vital Signs Date Time Temp Pulse Resp B/P (MAP) Pulse Ox O2 Delivery O2 Flow Rate FiO2 03/29/20 12:37 98.1 74 18 118/85 97 Room Air Vital signs reviewed: Yes Physical Exam CONSTITUTIONAL Constitutional: Present well-developed, Present well-nourished HENT HENT: Present normocephalic, Present atraumatic, Present oropharynx clear/moist, Present nose normal HENT L/R: Present left ext ear normal, Present right ext ear normal EYES Eyes: Reports PERRL, Reports conjunctivae normal NECK Neck: Present ROM normal PULMONARY Pulmonary: Present effort normal, Present breath sounds normal CARDIOVASCULAR Cardiovascular: Present regular rhythm, Present heart sounds normal, Present capillary refill normal, Present normal rate GASTROINTESTINAL Abdominal: Present soft, Present nontender, Present bowel sounds normal, Present other (L sided PEG tube site) GENITOURINARY Genitourinary: Present exam deferred SKIN Skin: Present warm, Present dry MUSCULOSKELETAL Musculoskeletal: Present ROM normal NEUROLOGICAL Neurological: Present alert, Present oriented x 3, Present no gross motor or sensory deficits PSYCHOLOGICAL Psychological: Present mood/affect normal, Present judgement normal Procedures Procedures Procedure: PEG tube placement. 18fr PEG tube replaced. Patient usually has 20Fr but current out of stock at this time. PEG tube placed and confirmed placement with auscultation and return of gastric contents. Assessment & Plan Medical Decision Making MDM 53 y.o M chronic debility presents for PEG tube dislodgement. Replaced as noted in procedure note. DC Assessment & Plan Final Impression: (1) PEG (percutaneous endoscopic gastrostomy) adjustment/replacement/removal Depart Disposition: HOME, SELF-CARE Last Vital Signs Date Time Temp Pulse Resp B/P (MAP) Pulse Ox O2 Delivery O2 Flow Rate FiO2 03/29/20 12:37 98.1 74 18 118/85 97 Room Air Home Meds Reported Medications [albuterol sulfate] No Conflict Check, 0.083 % INH Q4H PRN for SHORTNESS OF BREATH albuterol sulfate 2.5mg/3ml 3 ml via trach q4h prn sob 08/13/19 Ketoconazole (Nizoral A-D) 125 Ml Shampoo, 1 APPFUL TOP .wed apply to scalp every thu for dandruff 08/13/19 [keppra solution] No Conflict Check, 1000 MG PEG BID 08/13/19 Folic Acid (Folic Acid) 0.8 Mg Capsule, 1 TAB PEG HS 08/13/19 Potassium Bicarbonate/Cit Ac (EFFER-K 20 MEQ TABLET EFF) 20 Meq Tablet.eff, 20 MEQ PEG mon,wed,thu08/13/19 Carbamide Peroxide (DEBROX) 15 Ml Drops, 5 DROP EACH EAR mon and thu08/13/19 Clonazepam (CLONAZEPAM) 1 Mg Tablet, 1 MG PEG Q8H, TAB 08/13/19 Baclofen (BACLOFEN) 10 Mg Tablet, 30 MG PO Q8H, #90 TAB hold for sbp <110 08/13/19 Albuterol Sulfate (ALBUTEROL SULFATE) 2.5 Mg/3 Ml Vial.neb, 3 ML INH Q8H 08/13/19 Levalbuterol Hcl (XOPENEX) 0.63 Mg/3 Ml Vial.neb, 1 INH INH Q8H PRN for SHORTNESS OF BREATH 08/13/19 Acetaminophen (ACETAMINOPHEN) 325 Mg Tablet, 650 MG PO Q4H PRN for ELEVATED TEMPERATURE for 5 Days, TAB 08/13/19 Thiamine HCl (B-1) 100 Mg Tablet, 100 MG PEG DAILY 08/13/19 Sennosides (SENNA LAXATIVE) 8.6 Mg Tablet, 1 TAB PEG DAILY 08/13/19 Scopolamine (Scopolamine) 1 Each Patch.td.3, 1 PATCH TOP Q72H 08/13/19 Polyethylene Glycol 3350 (POLYETHYLENE GLYCOL 3350) 17 Gm Powd.pack, 17 GM PO DAILY, PACKET 08/13/19 Multivitamin With Minerals (MULTIPLE VITAMIN) 1 Each Tablet, 1 TAB PEG DAILY 08/13/19 RACHEL TORRES MD Mar 29, 2020 12:59
== END 2020-03-29 13:04 | disposition home or self-care (01) ==
LOC: ER 12:35
DX: Z43.1 Encounter for attention to gastrostomy (principal); Z87.820 Personal history of traumatic brain injury; Z91.5 Personal history of self-harm; E11.9 Type 2 diabetes mellitus without complications; F41.9 Anxiety disorder, unspecified; G93.1 Anoxic brain damage, not elsewhere classified
CPT/HCPCS: 99283

== ENCOUNTER 2020-04-01 20:40 | Emergency (ER) | payer MEDICARE, OTHER ==
[~2020-04-01] VITALS: Ht 170.2 cm; Wt 52.2 kg
--- NOTE | 2020-04-01 20:47 | Emergency Department Note ---
History of Present Illnes History of Present Illness History of Present Illness This is a 44 year old male brought by EMS for self removal of feeding tube . 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: See EMS Report History limited by: condition of the patient Cutter Machine Required: No Onset (how long ago): minute(s) Radiation: Reports non-radiation Severity: mild Onset quality: sudden Duration (how long): hour(s) Timing of current episode: intermittent Progression: waxing and waning Chronicity: recurrent Context: Denies recent illness, Denies recent surgery, Denies recent immobilization, Denies recent travel, Denies trauma/injury, Denies new medications, Denies hx of DVT/PE, Denies non-compliance w/ medications, Denies other Relieving factors: none Exacerbating factors: none Associated symptoms: Reports denies other symptoms Treatments prior to arrival: none Previous service: other Past Medical/Family History Physician Review I have reviewed the patient's past medical and family history. Any updates have been documented here. Past Medical History Recent Fever: No Clinical Suspicion of Infectio: No New/Unexplained Change in Ment: No Past Medical History: Diabetes, Anemia, Anxiety, Other Mental Illness Other Medical History: Cerebellar pathology h/o failed suicide attempt with resultant anoxic brain injury Other Surgery: feeding tube Social History Smoking Cessation: Never Smoker Alcohol Use: None Any Illegal Drug Use: No Other Last Tetanus: UTD Review of Systems Review of Systems Constitutional: Reports no symptoms EENTM: Reports no symptoms Cardiovascular: Reports no symptoms Respiratory: Reports no symptoms Gastrointestinal: Reports no symptoms Genitourinary: Reports no symptoms Musculoskeletal: Reports no symptoms Integumentary: Reports no symptoms Neurological: Reports no symptoms Psychological: Reports no symptoms Endocrine: Reports no symptoms Hematological/Lymphatic: Reports no symptoms Physical Exam Related Data Allergies: Coded Allergies: No Known Drug Allergies (Verified Allergy, Unknown, 04/04/20) Physical Exam CONSTITUTIONAL Constitutional: Present cachectic HENT HENT: Present normocephalic, Present atraumatic, Present oropharynx clear/moist, Present nose normal HENT L/R: Present left ext ear normal, Present right ext ear normal EYES Eyes: Reports PERRL, Reports conjunctivae normal NECK Neck: Present ROM normal PULMONARY Pulmonary: Present effort normal, Present breath sounds normal CARDIOVASCULAR Cardiovascular: Present regular rhythm, Present heart sounds normal, Present capillary refill normal, Present normal rate GASTROINTESTINAL Abdominal: Present soft, Present nontender, Present bowel sounds normal GENITOURINARY Genitourinary: Present exam deferred SKIN Skin: Present other (feeding tube orifice intact) MUSCULOSKELETAL NEUROLOGICAL Neurological: Present alert, Present abnormal coordination PSYCHOLOGICAL Psychological: Present mood/affect normal, Present judgement normal Procedures Feeding Tube Replacement Type of tube: gastrostomy Prior insertion site: clean Tube used for reinsertion: patient's own Tube size (F): 22 Balloon size (mL): 6 Verification of placement: auscultation Patient tolerated procedure: well Assessment & Plan Medical Decision Making MDM Diff Dx : self injury, non-compliance Assessment & Plan Final Impression: (1) PEG (percutaneous endoscopic gastrostomy) adjustment/replacement/removal Depart Disposition: TRANSFER [facility] Home Meds Reported Medications [albuterol sulfate] No Conflict Check, 0.083 % INH Q4H PRN for SHORTNESS OF BREATH albuterol sulfate 2.5mg/3ml 3 ml via trach q4h prn sob 08/13/19 Ketoconazole (Nizoral A-D) 125 Ml Shampoo, 1 APPFUL TOP .wed apply to scalp every thu for dandruff 08/13/19 [keppra solution] No Conflict Check, 1000 MG PEG BID 08/13/19 Folic Acid (Folic Acid) 0.8 Mg Capsule, 1 TAB PEG HS 08/13/19 Potassium Bicarbonate/Cit Ac (EFFER-K 20 MEQ TABLET EFF) 20 Meq Tablet.eff, 20 MEQ PEG mon,thu,thu08/13/19 Carbamide Peroxide (DEBROX) 15 Ml Drops, 5 DROP EACH EAR thu and thu08/13/19 Clonazepam (CLONAZEPAM) 1 Mg Tablet, 1 MG PEG Q8H, TAB 08/13/19 Baclofen (BACLOFEN) 10 Mg Tablet, 30 MG PO Q8H, #90 TAB hold for sbp <110 08/13/19 Albuterol Sulfate (ALBUTEROL SULFATE) 2.5 Mg/3 Ml Vial.neb, 3 ML INH Q8H 08/13/19 Levalbuterol Hcl (XOPENEX) 0.63 Mg/3 Ml Vial.neb, 1 INH INH Q8H PRN for SHORTNESS OF BREATH 08/13/19 Acetaminophen (ACETAMINOPHEN) 325 Mg Tablet, 650 MG PO Q4H PRN for ELEVATED TEMPERATURE for 5 Days, TAB 08/13/19 Thiamine HCl (B-1) 100 Mg Tablet, 100 MG PEG DAILY 08/13/19 Sennosides (SENNA LAXATIVE) 8.6 Mg Tablet, 1 TAB PEG DAILY 08/13/19 Scopolamine (Scopolamine) 1 Each Patch.td.3, 1 PATCH TOP Q72H 08/13/19 Polyethylene Glycol 3350 (POLYETHYLENE GLYCOL 3350) 17 Gm Powd.pack, 17 GM PO DAILY, PACKET 08/13/19 Multivitamin With Minerals (MULTIPLE VITAMIN) 1 Each Tablet, 1 TAB PEG DAILY 08/13/19 MICHAEL STEIN DO Apr 01, 2020 20:47
== END 2020-04-01 21:10 ==
LOC: ER 20:48
DX: Z43.1 Encounter for attention to gastrostomy (principal); G93.1 Anoxic brain damage, not elsewhere classified; Z87.820 Personal history of traumatic brain injury; Z91.5 Personal history of self-harm; E11.9 Type 2 diabetes mellitus without complications; F41.9 Anxiety disorder, unspecified
CPT/HCPCS: 43762; 99282

== ENCOUNTER 2020-04-02 03:13 | Emergency (ER) | payer MEDICARE, OTHER ==
[~2020-04-02] VITALS: Ht 170.2 cm; Wt 52.2 kg
--- NOTE | 2020-04-02 03:15 | Emergency Department Note ---
History of Present Illnes History of Present Illness History of Present Illness This is a 44 year old male presents to the ED by EMS after he self- removed G-tube. 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 Arrival Mode: [place] Radiation: Reports non-radiation Severity: mild Onset quality: sudden Duration (how long): hour(s) Timing of current episode: constant Progression: unchanged Chronicity: recurrent Context: Reports trauma/injury Relieving factors: none Exacerbating factors: none Associated symptoms: Reports denies other symptoms Previous service: one or more referrals Past Medical/Family History Physician Review I have reviewed the patient's past medical and family history. Any updates have been documented here. Past Medical History Recent Fever: No Clinical Suspicion of Infectio: No New/Unexplained Change in Ment: No Past Medical History: Diabetes, Anemia, Anxiety, Other Mental Illness Other Medical History: Cerebellar pathology h/o failed suicide attempt with resultant anoxic brain injury Other Surgery: feeding tube Other Last Tetanus: UTD Review of Systems Review of Systems Constitutional: Reports no symptoms EENTM: Reports no symptoms Cardiovascular: Reports no symptoms Respiratory: Reports no symptoms Gastrointestinal: Reports no symptoms Genitourinary: Reports no symptoms Musculoskeletal: Reports no symptoms Integumentary: Reports no symptoms Neurological: Reports no symptoms Psychological: Reports no symptoms Endocrine: Reports no symptoms Hematological/Lymphatic: Reports no symptoms Physical Exam Related Data Allergies: Coded Allergies: No Known Drug Allergies (Verified Allergy, Unknown, 04/05/20) Physical Exam CONSTITUTIONAL Constitutional: Present cachectic HENT HENT: Present normocephalic, Present atraumatic, Present oropharynx clear/moist, Present nose normal HENT L/R: Present left ext ear normal, Present right ext ear normal EYES Eyes: Reports PERRL, Reports conjunctivae normal NECK Neck: Present ROM normal PULMONARY Pulmonary: Present effort normal, Present breath sounds normal CARDIOVASCULAR Cardiovascular: Present regular rhythm, Present heart sounds normal, Present capillary refill normal, Present normal rate GASTROINTESTINAL Abdominal: Present soft, Present nontender, Present bowel sounds normal, Present other (orifice intact) GENITOURINARY Genitourinary: Present exam deferred SKIN Skin: Present warm, Present dry MUSCULOSKELETAL Musculoskeletal: Present ROM normal NEUROLOGICAL Neurological: Present alert, Present abnormal coordination PSYCHOLOGICAL Procedures Feeding Tube Replacement Type of tube: gastrostomy Prior insertion site: clean Tube used for reinsertion: other (22 FR) Tube size (F): 22 Balloon size (mL): 6 Verification of placement: auscultation Tube secured by: suturing Patient tolerated procedure: well Assessment & Plan Medical Decision Making MDM Diff dx : [facility] NEGLECT, self- injury, suicidal behavior Assessment & Plan Final Impression: (1) PEG (percutaneous endoscopic gastrostomy) adjustment/replacement/removal Depart Disposition: TRANSFER [facility] Home Meds Reported Medications [albuterol sulfate] No Conflict Check, 0.083 % INH Q4H PRN for SHORTNESS OF BREATH albuterol sulfate 2.5mg/3ml 3 ml via trach q4h prn sob 08/13/19 Ketoconazole (Nizoral A-D) 125 Ml Shampoo, 1 APPFUL TOP .wed apply to scalp every thu for dandruff 08/13/19 [keppra solution] No Conflict Check, 1000 MG PEG BID 08/13/19 Folic Acid (Folic Acid) 0.8 Mg Capsule, 1 TAB PEG HS 08/13/19 Potassium Bicarbonate/Cit Ac (EFFER-K 20 MEQ TABLET EFF) 20 Meq Tablet.eff, 20 MEQ PEG mon,thu,thu08/13/19 Carbamide Peroxide (DEBROX) 15 Ml Drops, 5 DROP EACH EAR thu and thu08/13/19 Clonazepam (CLONAZEPAM) 1 Mg Tablet, 1 MG PEG Q8H, TAB 08/13/19 Baclofen (BACLOFEN) 10 Mg Tablet, 30 MG PO Q8H, #90 TAB hold for sbp <110 08/13/19 Albuterol Sulfate (ALBUTEROL SULFATE) 2.5 Mg/3 Ml Vial.neb, 3 ML INH Q8H 08/13/19 Levalbuterol Hcl (XOPENEX) 0.63 Mg/3 Ml Vial.neb, 1 INH INH Q8H PRN for SHORTNESS OF BREATH 08/13/19 Acetaminophen (ACETAMINOPHEN) 325 Mg Tablet, 650 MG PO Q4H PRN for ELEVATED TEMPERATURE for 5 Days, TAB 08/13/19 Thiamine HCl (B-1) 100 Mg Tablet, 100 MG PEG DAILY 08/13/19 Sennosides (SENNA LAXATIVE) 8.6 Mg Tablet, 1 TAB PEG DAILY 08/13/19 Scopolamine (Scopolamine) 1 Each Patch.td.3, 1 PATCH TOP Q72H 08/13/19 Polyethylene Glycol 3350 (POLYETHYLENE GLYCOL 3350) 17 Gm Powd.pack, 17 GM PO DAILY, PACKET 08/13/19 Multivitamin With Minerals (MULTIPLE VITAMIN) 1 Each Tablet, 1 TAB PEG DAILY 08/13/19 MICHAEL STEIN DO Apr 02, 2020 03:15
--- OUTSIDE RECORDS SUMMARY | 2020-04-02 04:35 | XMS REPORT | Continuity of Care Document ---
Author Author [facility] Organization [facility]ly [facility] Address [address] [place] [address] Phone Unavailable Care Team Providers Care Automatic Spinning Lathe Operator Name Role Phone MALLORY ROJAS, MD PATTON PCP Konstantin FROST Attphys Unavailable CASIE, T TOLENTINO Attphys Unavailable Maggy LAYNE Attphys Unavailable BETHEA, SOUHEIL Attphys Unavailable BETHEA, SOUHEIL Admphys Unavailable Payers Payer Name Policy Type Policy Number Effective Date Expiration Date Maggy calderon Medicare A & B [id number] 2019 00:00:00 [facility] [employer] [id number] 2019 00:00:00 [facility] TMHP [id number] 2020 00:00:00 [facility] Cdc Review Covid19 [id number] [facility] Christine Medicaid [id number] 2019 00:00:00 [facility] Problems Condition Name Condition Details Condition Category Status Onset Date Resolution Date Last Treatment Date Treating Clinician Comments Source Body temperature above normal Hyperthermia Problem Active [facility] Pneumonia Pneumonia Problem Active [facility] Sepsis Problem Active [facility] Hypoxemia Problem Active [facility] Transient hypotension Problem Active [facility] Encounter for percutaneous endoscopic gastrostomy Problem Active [facility] Encounter for care related to feeding tube Problem Active [facility] Allergies, Adverse Reactions, Alerts Allergy Name Allergy Type Status Severity Reaction(s) Onset Date Inacti ve Date Treating Clinician Comments Source No Known Allergies DA Active U 2020-02-03 00:00:00 [facility] No Known Allergies DA Active U 2020-01-20 00:00:00 [facility] No Known Allergies DA Active U 2019-10-26 00:00:00 [facility] No Known Allergies DA Active U 2019-10-09 00:00:00 [facility] No Known Drug Allergies DA Active U 2019-09-12 00:00:00 [facility] No Known Contrast Allergies DA Active U 2007-08-26 00:00: 00 [facility] No Known Drug Allergies DA Active U 2007-08-26 00:00:00 [facility] No Known Food Allergies DA Active U 2007-08-26 00:00:00 [facility] No Known Other Allergies DA Active U 2007-08-26 00:00:00 [facility] Social History Social Habit Start Date Stop Date Quantity Comments Source Sex Assigned At 1975 00:00:00 1975 00:00:00 Male [facility] Medications Ordered Medication Name Filled Medication Name Start Date Stop Da te Current Medication? Ordering Clinician Indication Dosage Frequency Signature (SIG) Comments Components Source Acetaminophen Acetaminophen Yes 650 Every 4 Hours as needed for Elevated Temperature [facility] Albuterol Sulfate Albuterol Sulfate Yes .0 83 Every 4 Hours as needed for Shortness Of Breath [facility] Albuterol Sulfate Albuterol Sulfate Yes 3 Ever y 8 Hours [facility] Baclofen Baclofen Yes 30 Every 8 Hours [facility] Carbamide Peroxide (Debrox) 15 Ml DROPS Carbamide Peroxide ( Debrox) 15 Ml DROPS Yes 5 Mon And Fri [facility] Clonazepam Clonazepam Yes 1 Every 8 Hours [facility] Folic Acid Folic Acid Yes 1 Bedtime [facility] Keppra Solution Keppra Solution Yes 1000 Twice A Day [facility] Ketoconazole (Nizoral A-D) 125 Ml SHAMPOO Ketoconazole (Nizoral A-D) 125 Ml SHAMPOO Yes 1 .thu [facility] Levalbuterol Hcl (Xopenex) 0.63 Mg/3 Ml VIAL.NEB Leval buterol Hcl (Xopenex) 0.63 Mg/3 Ml VIAL.NEB Yes 1 Every 8 Hours as needed for Shortness Of Breath [facility] Multivitamin With Minerals (Multiple Vitamin) 1 Each T ABLET Multivitamin With Minerals (Multiple Vitamin) 1 Each TABLET Yes 1 Daily [facility] Polyethylene Glycol 3350 Polyethylene Glycol 3350 Yes 17 Daily [facility] Potassium Bicarbonate/Cit Ac (Effer-K 20 Meq Tablet Ef f) 20 Meq TABLET.EFF Potassium Bicarbonate/Cit Ac (Effer-K 20 Meq Tablet Eff) 20 Meq TABLET.EFF Yes 20 Mon,Thu,Thu [facility] Scopolamine Scopolamine Yes 1 Every 72 Hours [facility] Sennosides (Senna Laxative) 8.6 Mg TABLET Sennosides ( Senna Laxative) 8.6 Mg TABLET Yes 1 Daily [facility] Thiamine Hcl (B-1) 100 Mg TABLET Thiamine Hcl (B-1) 100 Mg TABLET Yes 100 Daily [facility] Vital Signs Vital Name Observation Time Observation Value Comments Source Oxygen saturation by Pulse oximetry 2020-04-01 20:55:00 99 /min [facility] Weight 2020-04-01 20:55:00 115 [lb_av] [facility] BMI (Body Mass Index) 2020-04-01 20:55:00 18.0 kg/m2 [facility] Oxygen saturation by Pulse oximetry 2020-03-29 12:37:00 97 /min [facility] Weight 2020-03-29 12:37:00 115 [lb_av] [facility] BMI (Body Mass Index) 2020-03-29 12:37:00 18.0 kg/m2 [facility] Oxygen saturation by Pulse oximetry 2020-03-28 20:56:00 97 /min [facility] Weight 2020-03-28 20:56:00 135 [lb_av] [facility] BMI (Body Mass Index) 2020-03-28 20:56:00 23.2 kg/m2 [facility] Oxygen saturation by Pulse oximetry 2020-03-28 07:35:00 98 /min [facility] Weight 2020-03-28 07:35:00 135 [lb_av] [facility] BMI (Body Mass Index) 2020-03-28 07:35:00 23.2 kg/m2 [facility] Oxygen saturation by Pulse oximetry 2020-03-15 07:55:00 100 /min [facility] Weight 2020-03-15 07:55:00 120 [lb_av] [facility] BMI (Body Mass Index) 2020-03-15 07:55:00 18.8 kg/m2 [facility] Body Temperature 2020-03-10 09:40:00 98.1 [degF] [facility] Heart Rate 2020-03-10 09:40:00 86 /min [facility] Respiratory rate 2020-03-10 09:40:00 18 /min [facility] BP Systolic 2020-03-10 09:40:00 125 mm[Hg] [facility] BP Diastolic 2020-03-10 09:40:00 75 mm[Hg] [facility] Body Temperature 2020-02-02 19:06:00 97.5 [degF] [facility] Weight 2020-02-02 19:03:00 130 [lb_av] [facility] BMI (Body Mass Index) 2020-02-02 19:03:00 21.0 kg/m2 [facility] Weight 2020-01-24 08:56:00 130 [lb_av] [facility] BMI (Body Mass Index) 2020-01-24 08:56:00 21.0 kg/m2 [facility] Weight 2020-01-13 20:15:00 130 [lb_av] [facility] BMI (Body Mass Index) 2020-01-13 20:15:00 21.0 kg/m2 [facility] Weight 2019-12-02 11:40:00 130 [lb_av] [facility] BMI (Body Mass Index) 2019-12-02 11:40:00 21.0 kg/m2 [facility] Body Temperature 2019-10-13 11:06:00 98.0 [degF] [facility] Weight 2019-10-13 08:47:00 181 [lb_av] [facility] BMI (Body Mass Index) 2019-10-13 08:47:00 25.2 kg/m2 [facility] Procedures Procedure Date / Time Performed Performing Clinician [facility] 2020[facility] 2020-03-11 00:00[facility]00 [facility] 2020-03-10 00:00[facility]00 [facility] 2020-02-02 00:00:00 [facility] EMERGENCY DEPT VISIT 2020-02-02 00:00:00 [facility] 2020-01-24 00:00[facility]00 [facility] 2020-01-13 00:00[facility]00 [facility] 2019-10-13 00:00:00 [facility] Computed tomography of chest without contrast 2019-08-13 00: 00:00 KAY PHILIPPE [facility] Plan of Care Planned Activity Planned Date Details Comments Source Instructions GI Tube Care [facility] Encounters Start Date/Time End Date/Time Encounter Type Admission Type Attendi [facility] Care Department Encounter ID Source 2020-04-01 20:48:00 2020-04-01 21:10:00 Departed Emergency Room [facility] [id number] [facility] 2020-03-29 12:35:00 2020-03-29 13:04:00 Departed Emergency Room [facility] [id number] [facility] 2020-03-28 20:59:00 2020-03-28 21:00:00 Departed Emergency Room [facility] [id number] [facility] 2020-03-28 07:41:00 2020-03-28 08:00:00 Departed Emergency Room [facility] [id number] [facility] 2020-03-15 07:58:00 2020-03-15 08:05:00 Departed Emergency Room [facility] [id number] [facility] 2020-03-11 21:31:00 2020-03-11 21:40:00 Departed Emergency Room [facility] [id number] [facility] 2020-03-10 21:15:00 2020-03-10 21:35:00 Departed Emergency Room [facility] [id number] [facility] 2020-03-10 08:14:00 2020-03-10 09:47:00 Departed Emergency Room [address] [facility] [id number] [facility] 2020-02-02 19:45:00 2020-02-02 20:12:00 Departed Emergency Room [facility] [id number] [facility] 2020-01-24 09:51:00 2020-01-24 12:16:00 Departed Emergency Room 1 JOSE FROST [facility] [id number] [facility] 2020-01-13 21:11:00 2020-01-13 21:35:00 Departed Emergency Room [facility] [id number] [facility] 2019-12-02 13:00:00 2019-12-02 17:52:00 Departed Emergency Room 1 RAJAN JASON [facility] [id number] [facility] 2019-10-13 09:48:00 2019-10-13 12:48:00 Departed Emergency Room 1 GISELA LAYNE [facility] [id number] [facility] 2019-08-13 06:31:00 2019-08-15 15:30:00 Discharged Inpatient 1 ABDI BETHEA [facility] [id number] [facility] Results Test Description Test Time Test Comments Results Result Comments Source ABDOMEN-1VIEW (KUB) 2020-03-10 08:04:[address] [facility] : 1975 Sex: M [place] [address] Patient Name: VANESSA KHOURY MR #: [id number] : 1975 Age/Sex: 44/M Req #: [id number] Adm Physician: Ordered by: JOSE FROST MD Report #: [id number] Location: ER Room/Bed: Procedure: [id number] DX/ABDOMEN-1VIEW (KUB) Exam Date: 03/10/20 Exam Time: 731 REPORT STATUS: Signed EXAM: Abdomen Radiograph 1 [...] to change in reagent. SPECIMEN COMMENTS: CODE [id number] 14:10:00* Test Item Value Reference Range Interpretation Comments PHOSPHORUS (test code = PHOS) 3.7 mg/dL 2.5-4.9 N SPECIMEN COMMENTS: CODE [id number] 14:10:00* Test Item Value Reference Range Interpretation Comments MAGNESIUM (test code = MAG) 2.5 mg/dL 1.8-2.4 H SPECIMEN COMMENTS: CODE [id number] 14:10:00* Test Item Value Reference Range Interpretation Comments CALCITONIN (test code = CALC) 4.5 pg/mL 0.0-8.4 Siemens Immulite 2000 Immunochemiluminometric assay (ICMA)Values obtained with different assay methods or kits cannotbe used interchangeably. Results cannot be interpreted asabsolute evidence of the presence or absence of malignantdisease.Performed At: [address] [id number] Sanjai MD Ph:[phone] SPECIMEN COMMENTS: CODE [id number] 12:47:00* Test Item Value Reference Range Interpretation Comments GLUBED (test code = GLUBED) 98 mg/dL 74-106 N Performed by certified foam machine operator at [facility] [id number] 08:39:00* Test Item Value Reference Range Interpretation Comments GLUBED (test code = GLUBED) 126 mg/dL 74-106 H Performed by certified foam machine operator at [facility] [id number] 20:50:00* Test Item Value Reference Range Interpretation Comments GLUBED (test code = GLUBED) 132 mg/dL 74-106 H Performed by certified foam machine operator at [facility] CBC W/AUTO [id number] 06:33:00* Test Item Value Reference Range Interpretation [...] = MDIFF) NO, ONLY SCAN NEEDED DIFFERENTIAL [id number] 06:33:00* Test Item Value Reference Range Interpretation Comments STAIN ACCEPTABILITY (test code = STN ACCEPTABLE) STAIN ACCEPTABLE POLYCHROMASIA (test code = POLC) 1+ HYPOCHROMIA (test code = HYPO) 1+ ANISOCYTOSIS (test code = ANISO) 1+ MORPHOLOGY COMMENT (test code = MOC) TEST NOT PERFORMED PLATELET ESTIMATE (test code = PLTEST) DECREASED PLATELET MORPHOLOGY (test code = PLTMORPH) NORMAL CBC W/AUTO [id number] 06:11:00* Test Item Value Reference Range Interpretation [...] = MDIFF) NO, ONLY SCAN NEEDED DIFFERENTIAL [id number] 06:11:00* Test Item Value Reference Range Interpretation Comments STAIN ACCEPTABILITY (test code = STN ACCEPTABLE) CABOT RINGS (test code = CAB) MORPHOLOGY COMMENT (test code = MOC) PLATELET ESTIMATE (test code = PLTEST) PLATELET MORPHOLOGY (test code = PLTMORPH) CBC W/AUTO [id number] 06:11:00* Test Item Value Reference Range Interpretation [...] = MDIFF) NO, ONLY SCAN NEEDED DIFFERENTIAL [id number] 06:11:00* Test Item Value Reference Range Interpretation Comments STAIN ACCEPTABILITY (test code = STN ACCEPTABLE) CABOT RINGS (test code = CAB) MORPHOLOGY COMMENT (test code = MOC) PLATELET ESTIMATE (test code = PLTEST) PLATELET MORPHOLOGY (test code = PLTMORPH) CBC W/AUTO [id number] 06:11:00* Test Item Value Reference Range Interpretation [...] = MDIFF) NO, ONLY SCAN NEEDED DIFFERENTIAL [id number] 06:11:00* Test Item Value Reference Range Interpretation Comments STAIN ACCEPTABILITY (test code = STN ACCEPTABLE) MORPHOLOGY COMMENT (test code = MOC) PLATELET ESTIMATE (test code = PLTEST) PLATELET MORPHOLOGY (test code = PLTMORPH) CBC W/AUTO [id number] 06:11:00* Test Item Value Reference Range Interpretation [...] = MDIFF) NO, ONLY SCAN NEEDED DIFFERENTIAL [id number] 06:11:00* Test Item Value Reference Range Interpretation Comments STAIN ACCEPTABILITY (test code = STN ACCEPTABLE) CABOT RINGS (test code = CAB) MORPHOLOGY COMMENT (test code = MOC) PLATELET ESTIMATE (test code = PLTEST) PLATELET MORPHOLOGY (test code = PLTMORPH) BASIC METABOLIC [id number] 06:08:00* Test Item Value Reference Range Interpretation [...] CA) 8.5 mg/dL 8.5-10.1 N BASIC METABOLIC [id number] 05:58:00* Test Item Value Reference Range Interpretation [...] code = CA) mg/dL 8.5-10.1 CBC W/AUTO [id number] 09:08:00* Test Item Value Reference Range Interpretation [...] = MDIFF) NO, ONLY SCAN NEEDED DIFFERENTIAL [id number] 09:08:00* Test Item Value Reference Range Interpretation Comments STAIN ACCEPTABILITY (test code = STN ACCEPTABLE) STAIN ACCEPTABLE POLYCHROMASIA (test code = POLC) 1+ ANISOCYTOSIS (test code = ANISO) 1+ PLATELET ESTIMATE (test code = PLTEST) DECREASED PLATELET MORPHOLOGY (test code = PLTMORPH) CLUMPING PRESENT BASIC METABOLIC [id number] 08:34:00* Test Item Value Reference Range Interpretation [...] CA) 8.6 mg/dL 8.5-10.1 N BASIC METABOLIC [id number] 08:32:00* Test Item Value Reference Range Interpretation [...] CA) 8.6 mg/dL 8.5-10.1 N CBC W/AUTO [id number] 08:25:00* Test Item Value Reference Range Interpretation [...] = MDIFF) NO, ONLY SCAN NEEDED DIFFERENTIAL [id number] 08:25:00* Test Item Value Reference Range Interpretation Comments STAIN ACCEPTABILITY (test code = STN ACCEPTABLE) CABOT RINGS (test code = CAB) MORPHOLOGY COMMENT (test code = MOC) PLATELET ESTIMATE (test code = PLTEST) PLATELET MORPHOLOGY (test code = PLTMORPH) CBC W/AUTO [id number] 08:25:00* Test Item Value Reference Range Interpretation [...] = MDIFF) NO, ONLY SCAN NEEDED DIFFERENTIAL [id number] 08:25:00* Test Item Value Reference Range Interpretation Comments STAIN ACCEPTABILITY (test code = STN ACCEPTABLE) MORPHOLOGY COMMENT (test code = MOC) PLATELET ESTIMATE (test code = PLTEST) PLATELET MORPHOLOGY (test code = PLTMORPH) CBC W/AUTO [id number] 08:24:00* Test Item Value Reference Range Interpretation [...] = MDIFF) NO, ONLY SCAN NEEDED DIFFERENTIAL [id number] 08:24:00* Test Item Value Reference Range Interpretation Comments STAIN ACCEPTABILITY (test code = STN ACCEPTABLE) CABOT RINGS (test code = CAB) MORPHOLOGY COMMENT (test code = MOC) PLATELET ESTIMATE (test code = PLTEST) PLATELET MORPHOLOGY (test code = PLTMORPH) CBC W/AUTO [id number] 08:24:00* Test Item Value Reference Range Interpretation [...] = MDIFF) NO, ONLY SCAN NEEDED DIFFERENTIAL [id number] 08:24:00* Test Item Value Reference Range Interpretation Comments STAIN ACCEPTABILITY (test code = STN ACCEPTABLE) CABOT RINGS (test code = CAB) MORPHOLOGY COMMENT (test code = MOC) PLATELET ESTIMATE (test code = PLTEST) PLATELET MORPHOLOGY (test code = PLTMORPH) LACTIC [id number] 17:46:00* Test Item Value Reference Range Interpretation Comments LACTIC ACID (test code = LACT) 1.7 mmol/L 0.4-1.9 N LACTIC [id number] 12:07:00* Test Item Value Reference Range Interpretation Comments LACTIC ACID (test code = LACT) 2.2 mmol/L 0.4-1.9 HH Results called to [id number] by [email or web address] 02/18/20 1207Critical results verified and read back by Nurse? YES SPECIMEN COMMENTS: CODE SEPSISLACTIC [id number] 10:37:00* Test Item Value Reference Range Interpretation Comments LACTIC ACID (test code = LACT) 2.3 mmol/L 0.4-1.9 HH Results called to [id number] by [email or web address] 02/18/20 1037Critical results verified and read back by Nurse? YES SPECIMEN COMMENTS: FOR CODE SEPSISCOMMENTS TO BLOCK SEALER: TAKE BY 1047 COMPREHENSIVE METABOLIC [id number] 10:08:00* Test Item Value Reference Range Interpretation [...] to change in reagent. SPECIMEN COMMENTS: CODE [id number] 10:08:00* Test Item Value Reference Range Interpretation Comments PHOSPHORUS (test code = PHOS) 3.7 mg/dL 2.5-4.9 N SPECIMEN COMMENTS: CODE [id number] 10:08:00* Test Item Value Reference Range Interpretation Comments MAGNESIUM (test code = MAG) 2.5 mg/dL 1.8-2.4 H SPECIMEN COMMENTS: CODE [id number] 10:08:00* Test Item Value Reference Range Interpretation Comments CALCITONIN (test code = CALC) pgram/mL <11.6 SPECIMEN COMMENTS: CODE SEPSISCOMPREHENSIVE METABOLIC [id number] 09:53:00* Test Item Value Reference Range Interpretation [...] = ALKP) IUnit/L 45-117 SPECIMEN COMMENTS: CODE [id number] 09:53:00* Test Item Value Reference Range Interpretation Comments PHOSPHORUS (test code = PHOS) mg/dL 2.5-4.9 SPECIMEN COMMENTS: CODE [id number] 09:53:00* Test Item Value Reference Range Interpretation Comments MAGNESIUM (test code = MAG) mg/dL 1.8-2.4 SPECIMEN COMMENTS: CODE [id number] 09:53:00* Test Item Value Reference Range Interpretation Comments CALCITONIN (test code = CALC) pgram/mL <11.6 SPECIMEN COMMENTS: CODE SEPSIS- XR CHEST 1 [id number] 08:58:00 FAX: Abdi Abbott MD [phone] [place]: St: ADM Name: VANESSA ANDREA [facility] : [birth year] Age/S: 44/M [address] [facility] Unit #: [id number] Loc: V.4036 [place] [address] Phys: Abdi Bethea MD Acct: [id number] Dis Date: Status: ADM IN PHONE #: [phone] Exam Date: 02/17/2020 0806 FAX #: [phone] Reason: pna EXAMS: CPT CODE: [id number] XR CHEST 1 V 10184 REASON FOR EXAM: pna Exam Order Date: 02/17/2020 5:00 AM Ordering M.D.: Abdi Bethea MD PROCEDURE: - XR CHEST [...] in this area cannot be excluded. Location: [facility] at 0858 Reported and signed by: John Hart MD CC: Abdi Bethea MD Technologist: KINGSTON MARCUS JR RT(R) Trnscrd Date/Time/By: 02/17/20 (0858) : By: [email or web address] Orig Print D/T: S: 02/17/2020 (900) PAGE 1 Signed Report CBC W/AUTO [id number] 06:36:00* Test Item Value Reference Range Interpretation [...] (test code = MDIFF) NO BASIC METABOLIC [id number] 06:22:00* Test Item Value Reference Range Interpretation [...] CA) 9.7 mg/dL 8.5-10.1 N CBC W/AUTO [id number] 08:30:00* Test Item Value Reference Range Interpretation [...] = MDIFF) NO, ONLY SCAN NEEDED DIFFERENTIAL [id number] 08:30:00* Test Item Value Reference Range Interpretation Comments STAIN ACCEPTABILITY (test code = STN ACCEPTABLE) STAIN ACCEPTABLE POLYCHROMASIA (test code = POLC) 1+ ANISOCYTOSIS (test code = ANISO) 1+ PLATELET ESTIMATE (test code = PLTEST) DECREASED PLATELET MORPHOLOGY (test code = PLTMORPH) NORMAL BASIC METABOLIC [id number] 08:23:00* Test Item Value Reference Range Interpretation [...] CA) 9.5 mg/dL 8.5-10.1 N BASIC METABOLIC [id number] 08:22:00* Test Item Value Reference Range Interpretation [...] code = CA) mg/dL 8.5-10.1 CBC W/AUTO [id number] 08:05:00* Test Item Value Reference Range Interpretation [...] = MDIFF) NO, ONLY SCAN NEEDED DIFFERENTIAL [id number] 08:05:00* Test Item Value Reference Range Interpretation Comments STAIN ACCEPTABILITY (test code = STN ACCEPTABLE) CABOT RINGS (test code = CAB) MORPHOLOGY COMMENT (test code = MOC) PLATELET ESTIMATE (test code = PLTEST) PLATELET MORPHOLOGY (test code = PLTMORPH) CBC W/AUTO [id number] 08:05:00* Test Item Value Reference Range Interpretation [...] = MDIFF) NO, ONLY SCAN NEEDED DIFFERENTIAL [id number] 08:05:00* Test Item Value Reference Range Interpretation Comments STAIN ACCEPTABILITY (test code = STN ACCEPTABLE) MORPHOLOGY COMMENT (test code = MOC) PLATELET ESTIMATE (test code = PLTEST) PLATELET MORPHOLOGY (test code = PLTMORPH) CBC W/AUTO [id number] 08:04:00* Test Item Value Reference Range Interpretation [...] = MDIFF) NO, ONLY SCAN NEEDED DIFFERENTIAL [id number] 08:04:00* Test Item Value Reference Range Interpretation Comments STAIN ACCEPTABILITY (test code = STN ACCEPTABLE) CABOT RINGS (test code = CAB) MORPHOLOGY COMMENT (test code = MOC) PLATELET ESTIMATE (test code = PLTEST) PLATELET MORPHOLOGY (test code = PLTMORPH) CBC W/AUTO [id number] 08:04:00* Test Item Value Reference Range Interpretation [...] = MDIFF) NO, ONLY SCAN NEEDED DIFFERENTIAL DMIF0426-13-26 08:04:00* Test Item Value Reference Range Interpretation Comments STAIN ACCEPTABILITY (test code = STN ACCEPTABLE) CABOT RINGS (test code = CAB) MORPHOLOGY COMMENT (test code = MOC) PLATELET ESTIMATE (test code = PLTEST) PLATELET MORPHOLOGY (test code = PLTMORPH) [id number] 20:49:00* Test Item Value Reference Range Interpretation Comments GLUBED (test code = GLUBED) 92 mg/dL 74-106 N Performed by certified foam machine operator at [facility] Coronavirus 2019 Ngmijmaydkvy8066-82-07 19:44:00* Test Item Value Reference Range Interpretation Comments Coronavirus 2019 Confirmation (test code = [id number]) Negative Negative Coronavirus 2019 Clzxyvirriwg5899-76-98 19:44:00* Test Item Value Reference Range Interpretation Comments Coronavirus 2019 Confirmation (test code = HTLZO82PHNO) Negative Negative LACTIC WEFF3951-17-56 04:04:00* Test Item Value Reference Range Interpretation Comments LACTIC ACID (test code = LACT) 1.3 mmol/L 0.4-1.9 N COVID 19 INHOUSE [id number] 23:13:00* Test Item Value Reference Range Interpretation Comments COVID 19 INHOUSE AG (test code = TLMSE64SBYS) NEGATIVE B-TYPE NATRIURETIC XMUVPCS9104-68-03 22:04:00* Test Item Value Reference Range Interpretation Comments B-TYPE NATRIURETIC PEPTIDE (test code = BNP) 13.19 pgram/mL 0-100 N CBC W/MANUAL [id number] 21:56:00* Test Item Value Reference Range Interpretation [...] = IMMAT) 0 % 0-0 N URINALYSIS SASGMOOX5769-74-64 21:54:00* Test Item Value Reference Range Interpretation [...] #/LPF FEW Urine Source? Clean CatchBASIC METABOLIC [id number] 21:48:00* Test Item Value Reference Range Interpretation [...] CA) 9.8 mg/dL 8.5-10.1 N HEPATIC FUNCTION [id number] 21:48:00* Test Item Value Reference Range Interpretation [...] reference range due to change in reagent. [id number] 21:48:00* Test Item Value Reference Range Interpretation Comments LIPASE (test code = LIP) 299 U/L 73.0-393.0 N [id number]-X4928-27-06 21:48:00* Test Item Value Reference Range Interpretation Comments TROPONIN-I (test code = TROPI) <0.015 ng/mL 0-0.045 N LACTIC [id number] 21:48:00* Test Item Value Reference Range Interpretation Comments LACTIC ACID (test code = LACT) 1.5 mmol/L 0.4-1.9 N BASIC METABOLIC [id number] 21:41:00* Test Item Value Reference Range Interpretation [...] code = CA) mg/dL 8.5-10.1 HEPATIC FUNCTION [id number] 21:41:00* Test Item Value Reference Range Interpretation [...] TOTAL (test code = ALKP) IUnit/L 45-117 [id number] 21:41:00* Test Item Value Reference Range Interpretation Comments LIPASE (test code = LIP) U/L 73.0-393.0 VYEGFDXI-[id number] 21:41:00* Test Item Value Reference Range Interpretation Comments TROPONIN-I (test code = TROPI) ng/mL 0-0.045 PROTHROMBIN [id number] 21:39:00* Test Item Value Reference Range Interpretation [...] (2.5-3.5) IS PATIENT ON ANTICOAGULANTS? NTHROMBOPLASTIN TIME [id number] 21:39:00* Test Item Value Reference Range Interpretation Comments THROMBOPLASTIN TIME PARTIAL (test code = PTT) 44.9 seconds 23.0-37. 0 H IS PATIENT ON ANTICOAGULANTS? NCBC W/MANUAL [id number] 21:28:00* Test Item Value Reference Range Interpretation [...] MORPHOLOGY (test code = PLTMORPH) CBC W/MANUAL [id number] 21:28:00* Test Item Value Reference Range Interpretation [...] MORPHOLOGY (test code = PLTMORPH) CBC W/MANUAL [id number] 21:28:00* Test Item Value Reference Range Interpretation [...] MORPHOLOGY (test code = PLTMORPH) CBC W/MANUAL [id number] 21:28:00* Test Item Value Reference Range Interpretation [...] MORPHOLOGY (test code = PLTMORPH) CBC W/MANUAL [id number] 21:28:00* Test Item Value Reference Range Interpretation [...] code = PLTMORPH) - XR CHEST 1 [id number] 21:13:00 FAX: Narayan Kapoor DO [phone] [place]: B St: REG Name: VANESSA ANDREA [facility] : [birth year] Age/S: 44/M [address] [facility] Unit #: [id number] Loc: [place] [address] Phys: Narayan Colbert DO Acct: [id number] Dis Date: Status: REG ER PHONE #: [phone] Exam Date: 02/14/20202058 FAX #: [phone] Reason: CODE SEPSIS EXAMS: CPT CODE: [id number] XR CHEST 1 V 32194 EXAM: Chest x-ray, one view; INFORMATION: Code [...] Signed Report - CONT INJ GS/ RISSA/ MEGAN/ [id number] 22:01:00 FAX: Jose Jacinto MD [place]: St: REG Name: VANESSA ANDREA [facility] : [birth year] Age/S: 44/M [address] [facility] Unit #: [id number] Loc: [place] [address] Phys: Jose Jacinto MD Acct: [id number] Dis Date: Status: REG ER PHONE #: [phone] Exam Date: 02/03/20202156 FAX #: [phone] Reason: Feeding tube replacement EXAMS: CPT CODE: [id number] CONT INJ GS/ DU/ JJ/ G G 65749 REASON FOR EXAM: Feeding tube repl acement EXAM ORDER DATE: 02/03/2020 9:27 PM Attending Kiana: Jose Jacinto MD PROCEDURE: - CONT INJ GS/ DU/ JJ/ GG Location:[facility] COMPARISON: FINDINGS: 2 views of the a bdomen obtained at 9:40 PM. The site controller radiograph shows unremarkable small bowel. Gastrografin injected through the existing G-tube shows opacifica tion of the stomach and small bowel without evidence of extravasation IMPRESSION: No evidence of extravasation at 220 Reported an d signed by: Hugo Sahu M.D. CC: Jose Jacinto MD Technologist: KARIN MALDONADO; RT VIELKA(R) Trnscrd Date/Time/By: 02/03/2020 (2200) : By: WillVTL Orig Print D/T: S: 02/03/2020 (2203) PAGE 1 Signed Report - CONT INJ GS/ DU/ JJ/ [id number] 09:02:00 FAX: Marcelina Younger DO [place]: B St: REG Name: VANESSA ANDREA [facility] : [birth year] Age/S: 44/M [address] [facility] Unit #: [id number] Loc: [place] [address] Phys: Marcelina Younger DO Acct: [id number] Dis Date: Status: REG ER PHONE #: [phone] Exam Date: 02/01/2020854 FAX #: [phone] Reason: peg tube replacement EXAMS: CPT CODE: [id number] CONT INJ GS/ DU/ JJ/ G G 80220 HISTORY: peg tube replacement TECHNIQUE: AP abdomen x-ray COMPARISON: Abdominal rad iograph earlier today at 12:31 AM FINDINGS/ IMPRESSION: Contrast administered through the percutaneous gastrostomy tub e opacifies the stomach lumen with no intraperitoneal extravasation of contrast to suggest leak. Remaining findings are unchan ged. Location: [facility] at 0902 Reported and signed by: Tatyana Hart MD CC: Marcelina Younger DO Technologist: Glenis Rodriguez RT(R); KINGSTON MARCUS JR RT(R) Trnscrd Date/Time/By: 02/01/2020 (09) : By: [email or web address] Orig Fanta nt D/T: S: 02/01/2020 (0905) PAGE 1 Signed Report - CONT INJ GS/ RISSA/ JAlin/ GG 2020-02-01 00:47:00 FAX: Lynn Cook [phone] [place]: St: REG Name: VANESSA ANDREA [facility] : [birth year] Age/S: 44/M [address] [facility] Unit #: [id number] Loc: [place] [address] Phys: Lynn Arora Acct: [id number] Dis Date: Status: REG ER PHONE #: [phone] Exam Date: 02/01/2020 0040 FAX #: [phone] Reason: G TUBE PLACMENT EXAMS: CPT CODE: [id number] CONT INJ GS/ DU/ JJ/ G G 43582 HISTORY: G-tube placement Lo cation: C3 FINDINGS: [...] MD CC: Lynn Arora MD Technologist: Luna Lin Date/Time/By: 02/01/2020 (0047) : By: [email or web address] Orig Print D/T: S: 02/01/2020 (0053) PAGE 1 Signed Report - CONT INJ GS/ DU/ JJ/ [id number] 01:47:00 FAX: Marcelina Younger DO [place]: St: REG Name: VANESSA ANDREA [facility] : [birth year] Age/S: 44/M [address] [facility] Unit #: [id number] Loc: [place] [address] Phys: Marcelina Younger DO Acct: [id number] Dis Date: Status: REG ER PHONE #: [phone] Exam Date: 01/25/2020139 FAX #: [phone] Reason: peg tube placement EXAMS: CPT CODE: [id number] CONT INJ GS/ DU/ JJ/ G G 20067 AFTER HOURS SERVICE AT: 01/25/2020 1:46 AM [...] by: Ava Durham M.D. CC: Marcelina Younger DO Breonna hnologist: Luna Lin Date/T ailyn/By: 01/25/2020 (0147) : By: [email or web address] Orig Print D/T: S: 0 (0152) PAGE 1 Signed Report ABDOMEN-1VIEW (KUB)2020-01-24 09:51:00 [place] [address] Patient Name: VANESSA KHOURY MR #: [id number] : 1975 Age/Sex: 44/M Req #: [id number] Adm Physician: Ordered by: JOSE FROST MD Report #: [id number] Location: ER Room/Bed: Procedure: [id number] DX/ABDOMEN-1VIEW (KUB) Exam Date: 01/24/20 Exam Time: 919 REPORT STATUS: Signed Abdomen, one view ( KUB) INDICATION: REPLACED G-TUBE [id number] Comparison: N one available. Discussion: Gastrografin was injected via the indwelling gastrostomy catheter prior to imaging. A site controller image was not obtained. G astrostomy tube [...] COPY TO: JOSE FROST MD BASIC METABOLIC [id number] 22:26:00* Test Item Value Reference Range Interpretation [...] CA) 10.2 mg/dL 8.5-10.1 H BASIC METABOLIC [id number] 22:24:00* Test Item Value Reference Range Interpretation [...] CA) 10.2 mg/dL 8.5-10.1 H CBC W/AUTO [id number] 22:18:00* Test Item Value Reference Range Interpretation [...] code = NRBC#) 0.00 K/mm3 0.0-0.1 N [id number] 00:53:00* Test Item Value Reference Range Interpretation Comments GLUBED (test code = GLUBED) 78 mg/dL 74-106 N Performed by certified foam machine operator at [facility] - CONT INJ GS/ DU/ JJ/ [id number] 23:55:00 FAX: Lisa Singh [phone] [place]: St: REG Name: Maggy WATTVANESSA [facility] : [birth year] Age/S: 44/M [address] [facility] Unit #: [id number] Loc: [place] [address] Phys: Lisa An Acct: [id number] Dis Date: Status: REG ER PHONE #: [phone] Exam Date: 12/11/2019 2344 FAX #: [phone] Reason: PEG replacement EXAMS: CPT CODE: [id number] CONT INJ GS/ DU/ JJ/ G G 27455 DICTATION LOCATION: [facility] HISTORY: Male, 44 years of age with PEG replacement EXAM: TWO VIEWS OF THE ABDOMEN COMPARISON: 11/24/2019 FIND INGS: 2 sequential frontal views of the abdomen are provided, the 1st imag e being a site controller and the 2nd image after contrast has been injected into th e patient's gastrostomy tube. Injected contrast resides in the s tomach lumen indicating that the gastrostomy tube is in satisfactory posit ion. No extravasation of contrast into peritoneal cavity. IMPRESSION: Gastrostomy tube is in satisfactory position. Electro nically Signed by Toya Casey MD on 12/11/2019 at 2355 Reported and signed by: Toya Casey MD CC: Sherice An MD Technologist: Luna Edmondson Trnwird Date/Time/By: 12/11/2019 (870) : By: Cielo Orig Print D/T: S: 12/11/2019 (9798) PAGE 1 Signed Report [id number] 23:24:00* Test Item Value Reference Range Interpretation Comments GLUBED (test code = GLUBED) 71 mg/dL 74-106 L Performed by certified foam machine operator at [facility] Fluoroscopic procedure less than one hour yetemnts8821-24-11 14:00:00* Test Item Value Reference Range Interpretation Comments Lactic Acid Level (test code = Lactic Acid Level) 1.7 mmol/L 0.5- 2.0 [facility] kpvwekr3871-57-14 14:00:00* Test Item Value Reference Range Interpretation Comments Blood Culture (test code = 31217133) NO GROWTH AFTER 5 DAYS, FINAL REPORT [facility] mevgnnjf1371-23-96 14:00:00* Test Item Value Reference Range Interpretation Comments Lactic Acid Level (test code = Lactic Acid Level) 1.7 mmol/L 0.5- 2.0 [facility] ewbkpky9836-44-10 14:00:00* Test Item Value Reference Range Interpretation Comments Blood Culture (test code = 26910112) NO GROWTH AFTER 5 DAYS, FINAL REPORT [facility] than one hour jgbdrjiq1301-69-13 14:00:00* Test Item Value Reference Range Interpretation Comments Lactic Acid Level (test code = Lactic Acid Level) 1.7 mmol/L 0.5- 2.0 [facility] pbkgweb2036-11-39 14:00:00* Test Item Value Reference Range Interpretation Comments Blood Culture (test code = 64783224) NO GROWTH AFTER 5 DAYS, FINAL REPORT [facility] less than one hour ztlxunao5754-04-20 14:00:00* Test Item Value Reference Range Interpretation Comments Lactic Acid Level (test code = Lactic Acid Level) 1.7 mmol/L 0.5- 2.0 [facility] vcdejla5186-89-65 14:00:00* Test Item Value Reference Range Interpretation Comments Blood Culture (test code = 80354934) NO GROWTH AFTER 5 DAYS, FINAL REPORT [facility] less than one hour pdnlkhem9526-09-25 14:00:00* Test Item Value Reference Range Interpretation Comments Lactic Acid Level (test code = Lactic Acid Level) 1.7 mmol/L 0.5- 2.0 [facility] eyfmkzs9739-10-53 14:00:00* Test Item Value Reference Range Interpretation Comments Blood Culture (test code = 84317922) NO GROWTH AFTER 5 DAYS, FINAL REPORT [facility] less than one hour minhsgtw0240-95-23 14:00:00* Test Item Value Reference Range Interpretation Comments Lactic Acid Level (test code = Lactic Acid Level) 1.7 mmol/L 0.5- 2.0 [facility] nbwlqbn4628-88-21 14:00:00* Test Item Value Reference Range Interpretation Comments Blood Culture (test code = 20638207) NO GROWTH AFTER 5 DAYS, FINAL REPORT [facility] less than one hour zocvrwti9219-66-70 14:00:00* Test Item Value Reference Range Interpretation Comments Lactic Acid Level (test code = Lactic Acid Level) 1.7 mmol/L 0.5- 2.0 [facility] sbdoirl3478-52-26 14:00:00* Test Item Value Reference Range Interpretation Comments Blood Culture (test code = 91445753) NO GROWTH AFTER 5 DAYS, FINAL REPORT [facility] less than one hour sedfcxsq8983-69-27 14:00:00* Test Item Value Reference Range Interpretation Comments Lactic Acid Level (test code = Lactic Acid Level) 1.7 mmol/L 0.5- 2.0 [facility] tlddasb4849-04-88 14:00:00* Test Item Value Reference Range Interpretation Comments Blood Culture (test code = 00677822) NO GROWTH AFTER 5 DAYS, FINAL REPORT [facility] SINGLE (PORTABLE)2019-12-02 13:50:00 [facility] [address] [place] [address] Patient Name: VANESSA KHOURY MR #: [id number] : 1975 Age/Sex: 44/M Req #: [id number] Adm Physician: Ordered by: RAJAN JASON MD Report #: [id number] Location: ER Room/Bed: Procedure: [id number] DX/CHEST SINGLE ( PORTABLE) Exam Date: 12/02/19 Exam Time: 1308 REPORT STATUS: Signed EXAMINATION: CH EST SINGLE (PORTABLE) INDICATION: Sepsis COMPARISON: Chest radiogr aph 08/14/2019 FINDINGS: LINES/TUBES:EKG leads overlie the chest. LUNGS:The lungs are moderately inflated. Mild bibasilar patchy opacities. PLEURA:No pleural effusion or pneumothorax. MEDIASTINUM:The cardiomedias tinal silhouette appears normal in size and shape. BONES/SOFT TISSUES:No ac [place] osseous injury. ABDOMEN:No free air under the diaphragm. IMPRES CHARLI: Mild bibasilar patchy opacities may represent atelectasis however super imposed pneumonia should be excluded clinically. Signed by: Jam Lee on 12/02/2019 1:52 PM Dictated By: CHRIS ALLISON MD 135 Transcribed By: SARAH on 12/02/19 1352 COPY TO: RAJAN JASON MD Bacterial urine ntzlgcf0398-45-48 13:42:00 * Test Item Value Reference Range Interpretation Comments Urine Culture (test code = 630-4) ENTEROCOCCUS FAECALIS [facility] gbedery2059-07-42 13:42:00* Test Item Value Reference Range Interpretation Comments Urine Culture (test code = 630-4) ENTEROCOCCUS FAECALIS [facility] bejsdwb2366-35-68 13:42:00* Test Item Value Reference Range Interpretation Comments Urine Culture (test code = 630-4) ENTEROCOCCUS FAECALIS [facility] urine mztrdki1583-06-25 13:42:00* Test Item Value Reference Range Interpretation Comments Urine Culture (test code = 630-4) ENTEROCOCCUS FAECALIS [facility] urine yuahoih1361-02-65 13:42:00* Test Item Value Reference Range Interpretation Comments Urine Culture (test code = 630-4) ENTEROCOCCUS FAECALIS [facility] urine npiapdd8553-46-23 13:42:00* Test Item Value Reference Range Interpretation Comments Urine Culture (test code = 630-4) ENTEROCOCCUS FAECALIS [facility] urine aepport9535-52-40 13:42:00* Test Item Value Reference Range Interpretation Comments Urine Culture (test code = 630-4) [facility]IS [facility] fkmchlt7362-67-27 13:42:00* Test Item Value Reference Range Interpretation Comments Urine Culture (test code = 630-4) ENTEROCOCCUS FAECALIS [facility] leukocytes automated count (number/volume)2019-12-02 13:40:00* Test Item Value Reference Range Interpretation Comments White Blood Count (test code = 6690-2) 5.19 10*3/uL 4.8-10.8 [facility] erythrocytes automated count (number/volume)2019-12-02 13:40:00* Test Item Value Reference Range Interpretation Comments Red Blood Count (test code = 789-8) 4.39 10*6/mL 4.3-5.7 [facility] hemoglobin measurement (moles/volume)2019-12-02 13:40:00* Test Item Value Reference Range Interpretation Comments Hemoglobin (test code = 76129-5) 12.6 g/dL 14.0-18.0 [facility] hematocrit (volume fraction)2019-12-02 13:40:00* Test Item Value Reference Range Interpretation Comments Hematocrit (test code = 4544-3) 43.1 % 38.2-49.6 [facility]Autom[facility] erythrocyte mean corpuscular evlrqh2384-95-66 13:40:00* Test Item Value Reference Range Interpretation Comments Mean Corpuscular Volume (test code = 787-2) 98.2 81-99 [facility] erythrocyte mean corpuscular hemoglobin (mass per erythrocyte)2019-12-02 13:40:00* Test Item Value Reference Range Interpretation Comments Mean Corpuscular Hemoglobin (test code = 785-6) 28.7 pg 28-32 [facility]Autformerly [facility] mean corpuscular hemoglobin concentration measurement (mass/volume)2019-12-02 13:40:00* Test Item Value Reference Range Interpretation Comments Mean Corpuscular Hemoglobin Concent (test code = 786-4) 29.2 g/dL 31-35 [facility] HospitalRDW YueTr-Sgv5797-75-24 13:40:00* Test Item Value Reference Range Interpretation Comments Red Cell Distribution Width (test code = 77221-7) 13.4 % 11.7 -14.4 [facility]Aut[facility]ed blood platelet count (count/volume)2019-12-02 13:40:00* Test Item Value Reference Range Interpretation Comments Platelet Count (test code = 777-3) 69 10*3/uL 140-360 [facility] HospitalAutomated blood segmented neutrophil count as percentage of total uzvxzonlci6589-64-86 13:40:00* Test Item Value Reference Range Interpretation Comments Neutrophils (%) (Auto) (test code = 39562-2) 61.1 % 38.7-80.0 [facility] HospitalAutom[facility] blood lymphocyte count as percentage ot total wbkgmcsbdb3859-29-86 13:40:00* Test Item Value Reference Range Interpretation Comments Lymphocytes (%) (Auto) (test code = 736-9) 28.7 % 18.0-39.1 [facility] HospitalAutom[facility] blood monocyte count as percentage of total hlgxcadkbv2298-00-53 13:40:00* Test Item Value Reference Range Interpretation Comments Monocytes (%) (Auto) (test code = 5905-5) 9.4 % 4.4-11.3 [facility] HospitalAutom[facility] blood eosinophil count as percentage of total ttopysgjuv7887-17-34 13:40:00* Test Item Value Reference Range Interpretation Comments Eosinophils (%) (Auto) (test code = 713-8) 0.2 % 0.0-6.0 [facility] HospitalAutom[facility] blood basophil count as percentage of total egorgrvjqh2825-72-99 13:40:00* Test Item Value Reference Range Interpretation Comments Basophils (%) (Auto) (test code = 706-2) 0.2 % 0.0-1.0 [facility] HospitalFluoroscopic procedure less than one hour weltfvyr6407-83-09 13:40:00* Test Item Value Reference Range Interpretation Comments IM GRANULOCYTES % (test code = IM GRANULOCYTES %) 0.4 % 0.0- 1.0 [facility] HospitalAutom[facility] blood neutrophil count 2019-12-02 13:40:00* Test Item Value Reference Range Interpretation Comments Neutrophils # (Auto) (test code = 751-8) 3.2 2.1-6.9 [facility] HospitalBlood lymphocytes count (number/volume) 2019-12-02 13:40:00* Test Item Value Reference Range Interpretation Comments Lymphocytes # (Auto) (test code = 77047-8) 1.5 1.0-3.2 [facility] HospitalBlood monocytes automated count (number/volume)2019-12-02 13:40:00* Test Item Value Reference Range Interpretation Comments Monocytes # (Auto) (test code = 742-7) 0.5 0.2-0.8 [facility] HospitalAutom[facility] blood eosinophil count 2019-12-02 13:40:00* Test Item Value Reference Range Interpretation Comments Eosinophils # (Auto) (test code = 711-2) 0.0 0.0-0.4 [facility] HospitalAutom[facility] blood basophil count (count/volume)2019-12-02 13:40:00* Test Item Value Reference Range Interpretation Comments Basophils # (Auto) (test code = 704-7) 0.0 0.0-0.1 [facility] HospitalFluoroscopic procedure less than one hour oxjdxhyi5968-49-29 13:40:00* Test Item Value Reference Range Interpretation Comments Absolute Immature Granulocyte (auto (mabel t code = Absolute Immature Granulocyte (auto) 0.02 10*3/uL 0-0.1 [facility] HospitalProthrombin time (PT) in platelet poor plasma by coagulation tbyid4854-25-19 13:40:00* Test Item Value Reference Range Interpretation Comments Prothrombin Time (test code = 5902-2) 13.9 s 11.9-14.5 [facility] HospitalINR in Platelet poor plasma by Coagulation fyudi4283-80-75 13:40:00* Test Item Value Reference Range Interpretation Comments Prothromb Time International Ratio (test code = 6301-6) 1.02 Oral Anticoagulant Therapy INR Values:1. Low Intensity Therapy 1.5 - 2.02 . Moderate Intensity Therapy 2.0 - 3.03. High Intensity Therapy(1) 2.5 - 3. 54. High Intensity Therapy(2) 3.0 - 4.05. Panic Value INR > 5.0 [facility] HospitalActivated partial thromboplastin time (aPTT) in platelet poor plasma by coagulation ckndd8151-19-48 13:40:00* Test Item Value Reference Range Interpretation Comments Activated Partial Thromboplast Time (test code = 53840-0) 33.3 s 23.8-35.5 [facility] HospitalUrine color nbminpiaynctg1568-49-56 13:40:00* Test Item Value Reference Range Interpretation Comments Urine Color (test code = 5778-6) STRAW YELLOW [facility] HospitalUrine ezrglzp1413-82-87 13:40:00* Test Item Value Reference Range Interpretation Comments Urine Clarity (test code = 65169-2) SL CLOUDY CLEAR [facility] Urine by Test strip 2019-12-02 13:40:00* Test Item Value Reference Range Interpretation Comments Urine Specific [place] (test code = 5811-5) 1.020 1.010-1.02 5 [facility] HospitalUrine pH measurement by automated test uwtal1311-86-38 13:40:00* Test Item Value Reference Range Interpretation Comments Urine pH (test code = 52871-6) 5.5 5-7 [facility] HospitalUrine leukocyte esterase detection by dgkhrxht9199-16-26 13:40:00* Test Item Value Reference Range Interpretation Comments Urine Leukocyte Esterase (test code = 5799-2) NEGATIVE NEGATIVE [facility] HospitalUrine nitrite ayqvomaxf0203-17-16 13:40:00* Test Item Value Reference Range Interpretation Comments Urine Nitrite (test code = 26026-0) NEGATIVE NEGATIVE [facility] HospitalUrine protein measurement by test strip (mass/volume)2019-12-02 13:40:00* Test Item Value Reference Range Interpretation Comments Urine Protein (test code = 5804-0) 2+ NEGATIVE [facility] HospitalUrine glucose pebkhzvzc4548-91-89 13:40:00* Test Item Value Reference Range Interpretation Comments Urine Glucose (UA) (test code = 2349-9) NEGATIVE NEGATIVE [facility] [facility] ketones detection by automated test [id number] 13:40:00* Test Item Value Reference Range Interpretation Comments Urine Ketones (test code = 61254-0) NEGATIVE NEGATIVE [facility] HospitalUrine urobilinogen measurement by test strip (mass/volume)2019-12-02 13:40:00* Test Item Value Reference Range Interpretation Comments Urine Urobilinogen (test code = 70078-8) 1 mg/dL 0.2-1 [facility] HospitalUrine total bilirubin measurement (mass/volume)2019-12-02 13:40:00* Test Item Value Reference Range Interpretation Comments Urine Bilirubin (test code = 1978-6) NEGATIVE NEGATIVE [facility] HospitalUrine erythrocytes kebqgloel8727-10-33 13:40:00* Test Item Value Reference Range Interpretation Comments Urine Blood (test code = 25531-0) MODERATE NEGATIVE [facility] HospitalAutomated urine sediment leukocyte count by microscopy (number/high power field)2019-12-02 13:40:00* Test Item Value Reference Range Interpretation Comments Urine WBC (test code = 5821-4) NONE /[HPF] 0-5 [facility] HospitalErythrocytes detection in urine sediment by light jyitrecvzx7871-12-64 13:40:00* Test Item Value Reference Range Interpretation Comments Urine RBC (test code = 91222-2) 6-10 /[HPF] 0-5 [facility] HospitalBacteria detection in urine sediment by light flpwwwrhbw3123-73-90 13:40:00* Test Item Value Reference Range Interpretation Comments Urine Bacteria (test code = 16390-0) MODERATE /[HPF] NONE [facility] HospitalEpithelial cells detection in urine sediment by light vzsgtdtkdk5265-81-13 13:40:00* Test Item Value Reference Range Interpretation Comments Urine Epithelial Cells (test code = 95022-5) FEW /[LPF] NONE [facility] sodium [facility] (moles/volume)2019-12-02 13:40:00* Test Item Value Reference Range Interpretation Comments Sodium Level (test code = 2951-2) 160 mmol/L 136-145 [facility]er[facility] plasma potassium measurement (moles/volume)2019-12-02 13:40:00* Test Item Value Reference Range Interpretation Comments Potassium Level (test code = 2823-3) 4.6 mmol/L 3.5-5.1 [facility]er[facility] plasma chloride measurement (moles/volume)2019-12-02 13:40:00* Test Item Value Reference Range Interpretation Comments Chloride Level (test code = 2075-0) 121 mmol/L 98-107 [facility]er[facility] or plasma carbon dioxide, total measurement (moles/volume)2019-12-02 13:40:00* Test Item Value Reference Range Interpretation Comments Carbon Dioxide Level (test code = 2028-9) 29 mmol/L 22-29 [facility] Hospitalerum or plasma anion kqi9984-21-22 13:40:00* Test Item Value Reference Range Interpretation Comments Anion Gap (test code = 19533-5) 14.6 mmol/L 8-16 [facility]er[facility] urea nitrogen measurement (mass/volume)2019-12-02 13:40:00* Test Item Value Reference Range Interpretation Comments Blood Urea Nitrogen (test code = 3094-0) 34 mg/dL 7- [facility]er[facility] or plasma creatinine measurement (mass/volume)2019-12-02 13:40:00* Test Item Value Reference Range Interpretation Comments Creatinine (test code = 2160-0) 0.70 mg/dL 0.72-1.25 [facility]er[facility] plasma urea nitrogen/creatinine mass lljbn6268-07-19 13:40:00* Test Item Value Reference Range Interpretation Comments BUN/Creatinine Ratio (test code = 3097-3) 49 6-25 [facility] HospitalEstimated glomerular filtration rate (GFR) bmrxqejafmdmz1286-68-72 13:40:00* Test Item Value Reference Range Interpretation Comments Estimat Glomerular Filtration Rate (test code = 605637855) > 60 mL/ min >60 Ranges were taken from the National Kidney Disease Education Program and the [facility] literature.Reference ranges:60 or greater: [id number] ( for 3 consecutive months): Chronic kidney disease 15 or less: Kidney failureMemorial [facility]ann [facility] HospitalGlucose zextamhbvpy0871-04-35 13:40:00* Test Item Value Reference Range Interpretation Comments Glucose Level (test code = VPA2505) 104 mg/dL 74-118 [facility] Hospitalerum or plasma calcium measurement (mass/volume)2019-12-02 13:40:00* Test Item Value Reference Range Interpretation Comments Calcium Level (test code = 72650-0) 8.6 mg/dL 8.4-10.2 [facility]er[facility] or plasma total bilirubin measurement (mass/volume)2019-12-02 13:40:00* Test Item Value Reference Range Interpretation Comments Total Bilirubin (test code = 1975-2) 0.4 mg/dL 0.2-1.2 [facility] HospitalFluoroscopic procedure less than one hour twjgqukl0995-86-03 13:40:00* Test Item Value Reference Range Interpretation Comments Aspartate Amino Transf (AST/SGOT) (test code = Aspartate Amino Transf (AST/SGOT)) 61 [IU]/L 5-34 [facility] Hospitalerum or plasma alanine aminotransferase measurement (enzymatic activity/volume)2019-12-02 13:40:00* Test Item Value Reference Range Interpretation Comments Alanine Aminotransferase (ALT/SGPT) (test code = 1742-6) 67 [IU]/L 0-55 [facility] Hospitalerum or plasma protein measurement (mass/volume)2019-12-02 13:40:00* Test Item Value Reference Range Interpretation Comments Total Protein (test code = 2885-2) 7.9 g/dL 6.5-8.1 [facility] Hospitaler[facility] or plasma albumin measurement (mass/volume)2019-12-02 13:40:00* Test Item Value Reference Range Interpretation Comments Albumin (test code = 1751-7) 2.9 g/dL 3.5-5.0 [facility] HospitalPlasma globulin measurement (mass/volume) 2019-12-02 13:40:00* Test Item Value Reference Range Interpretation Comments Globulin (test code = 20927-8) 5.0 g/dL 2.3-3.5 [facility] Hospitalerum or plasma albumin/globulin mass kmkue0890-42-16 13:40:00* Test Item Value Reference Range Interpretation Comments Albumin/Globulin Ratio (test code = 1759-0) 0.6 0.8-2.0 [facility] Hospitaler[facility] or plasma alkaline phosphatase measurement (enzymatic activity/volume)2019-12-02 13:40:00* Test Item Value Reference Range Interpretation Comments Alkaline Phosphatase (test code = 6768-6) 117 [IU]/L 40-150 [facility] Hospitalerum or plasma creatine kinase measurement (enzymatic activity/volume)2019-12-02 13:40:00* Test Item Value Reference Range Interpretation Comments Creatine Kinase (test code = 2157-6) 47 [IU]/L 30-200 [facility] Hospitalerum or plasma creatine kinase MB measurement (mass/volume)2019-12-02 13:40:00* Test Item Value Reference Range Interpretation Comments Creatine Kinase MB (test code = 61169-0) 0.60 ng/mL 0-5.0 [facility] HospitalTroponin I measurement by highly sensitive enzyme xtjxcgfozgm2079-87-06 13:40:00* Test Item Value Reference Range Interpretation Comments Troponin I (test code = 09507-0) 0.002 ng/mL 0-0.300 [facility] leukocytes automated count (number/volume)2019-12-02 13:40:00* Test Item Value Reference Range Interpretation Comments White Blood Count (test code = 6690-2) 5.19 10*3/uL 4.8-10.8 [facility] erythrocytes automated count (number/volume)2019-12-02 13:40:00* Test Item Value Reference Range Interpretation Comments Red Blood Count (test code = 789-8) 4.39 10*6/mL 4.3-5.7 [facility] hemoglobin measurement (moles/volume)2019-12-02 13:40:00* Test Item Value Reference Range Interpretation Comments Hemoglobin (test code = 68750-1) 12.6 g/dL 14.0-18.0 [facility] HospitalAutomated blood hematocrit (volume fraction)2019-12-02 13:40:00* Test Item Value Reference Range Interpretation Comments Hematocrit (test code = 4544-3) 43.1 % 38.2-49.6 [facility] HospitalAutomated erythrocyte mean corpuscular ydnapp3286-27-54 13:40:00* Test Item Value Reference Range Interpretation Comments Mean Corpuscular Volume (test code = 787-2) 98.2 81-99 [facility] HospitalAutomated erythrocyte mean corpuscular hemoglobin (mass per erythrocyte)2019-12-02 13:40:00* Test Item Value Reference Range Interpretation Comments Mean Corpuscular Hemoglobin (test code = 785-6) 28.7 pg 28-32 [facility] HospitalAutomated erythrocyte mean corpuscular hemoglobin concentration measurement (mass/volume)2019-12-02 13:40:00* Test Item Value Reference Range Interpretation Comments Mean Corpuscular Hemoglobin Concent (test code = 786-4) 29.2 g/dL 31-35 [facility] HospitalRDW CikAj-Sfw5731-14-24 13:40:00* Test Item Value Reference Range Interpretation Comments Red Cell Distribution Width (test code = 31452-3) 13.4 % 11.7 -14.4 [facility] HospitalAutomated blood platelet count (count/volume)2019-12-02 13:40:00* Test Item Value Reference Range Interpretation Comments Platelet Count (test code = 777-3) 69 10*3/uL 140-360 [facility] HospitalAutomated blood segmented neutrophil count as percentage of total wjdbleifle3794-11-89 13:40:00* Test Item Value Reference Range Interpretation Comments Neutrophils (%) (Auto) (test code = 52315-2) 61.1 % 38.7-80.0 [facility] blood lymphocyte count as percentage ot total qdcgjfkgsc5776-84-06 13:40:00* Test Item Value Reference Range Interpretation Comments Lymphocytes (%) (Auto) (test code = 736-9) 28.7 % 18.0-39.1 [facility] HospitalAutomated blood monocyte count as percentage of total zoilgueepw0992-26-95 13:40:00* Test Item Value Reference Range Interpretation Comments Monocytes (%) (Auto) (test code = 5905-5) 9.4 % 4.4-11.3 [facility]Aut[facility] eosinophil count as percentage of total lfwurdubec0850-04-59 13:40:00* Test Item Value Reference Range Interpretation Comments Eosinophils (%) (Auto) (test code = 713-8) 0.2 % 0.0-6.0 [facility] HospitalAutomated blood basophil count as percentage of total zxbxsnfbao7903-15-22 13:40:00* Test Item Value Reference Range Interpretation Comments Basophils (%) (Auto) (test code = 706-2) 0.2 % 0.0-1.0 [facility] HospitalFluoroscopic procedure less than one hour eztatxho4252-66-89 13:40:00* Test Item Value Reference Range Interpretation Comments IM GRANULOCYTES % (test code = IM GRANULOCYTES %) 0.4 % 0.0- 1.0 [facility] HospitalAutomated blood neutrophil count 2019-12-02 13:40:00* Test Item Value Reference Range Interpretation Comments Neutrophils # (Auto) (test code = 751-8) 3.2 2.1-6.9 [facility] HospitalBlood lymphocytes count (number/volume) 2019-12-02 13:40:00* Test Item Value Reference Range Interpretation Comments Lymphocytes # (Auto) (test code = 42088-0) 1.5 1.0-3.2 [facility] HospitalBlood monocytes automated count (number/volume)2019-12-02 13:40:00* Test Item Value Reference Range Interpretation Comments Monocytes # (Auto) (test code = 742-7) 0.5 0.2-0.8 [facility] HospitalAutomated blood eosinophil count 2019-12-02 13:40:00* Test Item Value Reference Range Interpretation Comments Eosinophils # (Auto) (test code = 711-2) 0.0 0.0-0.4 [facility] HospitalAutomated blood basophil count (count/volume)2019-12-02 13:40:00* Test Item Value Reference Range Interpretation Comments Basophils # (Auto) (test code = 704-7) 0.0 0.0-0.1 [facility] HospitalFluoroscopic procedure less than one hour cnubjtuv7033-30-46 13:40:00* Test Item Value Reference Range Interpretation Comments Absolute Immature Granulocyte (auto (mabel t code = Absolute Immature Granulocyte (auto) 0.02 10*3/uL 0-0.1 [facility] HospitalProthrombin time (PT) in platelet poor plasma by coagulation bznnz7977-56-07 13:40:00* Test Item Value Reference Range Interpretation Comments Prothrombin Time (test code = 5902-2) 13.9 s 11.9-14.5 [facility] HospitalINR in Platelet poor plasma by Coagulation spuqj3819-72-79 13:40:00* Test Item Value Reference Range Interpretation Comments Prothromb Time International Ratio (test code = 6301-6) 1.02 Oral Anticoagulant Therapy INR Values:1. Low Intensity Therapy 1.5 - 2.02 . Moderate Intensity Therapy 2.0 - 3.03. High Intensity Therapy(1) 2.5 - 3. 54. High Intensity Therapy(2) 3.0 - 4.05. Panic Value INR > 5.0 [facility] HospitalActivated partial thromboplastin time (aPTT) in platelet poor plasma by coagulation luzpk4544-84-21 13:40:00* Test Item Value Reference Range Interpretation Comments Activated Partial Thromboplast Time (test code = 22033-7) 33.3 s 23.8-35.5 [facility] HospitalUrine color zvdyviypfvzeq0606-60-03 13:40:00* Test Item Value Reference Range Interpretation Comments Urine Color (test code = 5778-6) STRAW YELLOW [facility] HospitalUrine bljxxhi7004-77-94 13:40:00* Test Item Value Reference Range Interpretation Comments Urine Clarity (test code = 18387-5) SL CLOUDY CLEAR [facility] Hospitalpecific gravity of Urine by Test strip 2019-12-02 13:40:00* Test Item Value Reference Range Interpretation Comments Urine Specific [place] (test code = 5811-5) 1.020 1.010-1.02 5 [facility] HospitalUrine pH measurement by automated test ooqqy4931-29-30 13:40:00* Test Item Value Reference Range Interpretation Comments Urine pH (test code = 09746-7) 5.5 5-7 [facility] HospitalUrine leukocyte esterase detection by btmpcnzx0436-21-34 13:40:00* Test Item Value Reference Range Interpretation Comments Urine Leukocyte Esterase (test code = 5799-2) NEGATIVE NEGATIVE [facility] HospitalUrine nitrite xqygczplp4441-53-68 13:40:00* Test Item Value Reference Range Interpretation Comments Urine Nitrite (test code = 24240-6) NEGATIVE NEGATIVE [facility] HospitalUrine protein measurement by test strip (mass/volume)2019-12-02 13:40:00* Test Item Value Reference Range Interpretation Comments Urine Protein (test code = 5804-0) 2+ NEGATIVE [facility] HospitalUrine glucose hvmqgdfer1880-98-98 13:40:00* Test Item Value Reference Range Interpretation Comments Urine Glucose (UA) (test code = 2349-9) NEGATIVE NEGATIVE [facility] HospitalUrine ketones detection by automated test enqml4869-50-78 13:40:00* Test Item Value Reference Range Interpretation Comments Urine Ketones (test code = 80553-2) NEGATIVE NEGATIVE [facility] HospitalUrine urobilinogen measurement by test strip (mass/volume)2019-12-02 13:40:00* Test Item Value Reference Range Interpretation Comments Urine Urobilinogen (test code = 04280-2) 1 mg/dL 0.2-1 [facility] HospitalUrine total bilirubin measurement (mass/volume)2019-12-02 13:40:00* Test Item Value Reference Range Interpretation Comments Urine Bilirubin (test code = 1978-6) NEGATIVE NEGATIVE [facility] HospitalUrine erythrocytes euyojltjv9484-28-78 13:40:00* Test Item Value Reference Range Interpretation Comments Urine Blood (test code = 92053-9) MODERATE NEGATIVE [facility] HospitalAutomated urine sediment leukocyte count by microscopy (number/high power field)2019-12-02 13:40:00* Test Item Value Reference Range Interpretation Comments Urine WBC (test code = 5821-4) NONE /[HPF] 0-5 [facility] HospitalErythrocytes detection in urine sediment by light kfliwrojvv9938-26-91 13:40:00* Test Item Value Reference Range Interpretation Comments Urine RBC (test code = 54533-3) 6-10 /[HPF] 0-5 [facility] HospitalBacteria detection in urine sediment by light vrbmtnuytj1884-36-44 13:40:00* Test Item Value Reference Range Interpretation Comments Urine Bacteria (test code = 49326-7) MODERATE /[HPF] NONE [facility] HospitalEpithelial cells detection in urine sediment by light gltbqlnwmy7226-80-48 13:40:00* Test Item Value Reference Range Interpretation Comments Urine Epithelial Cells (test code = 27368-3) FEW /[LPF] NONE [facility] Hospitalerum or plasma sodium measurement (moles/volume)2019-12-02 13:40:00* Test Item Value Reference Range Interpretation Comments Sodium Level (test code = 2951-2) 160 mmol/L 136-145 [facility] Hospitalerum or plasma potassium measurement (moles/volume)2019-12-02 13:40:00* Test Item Value Reference Range Interpretation Comments Potassium Level (test code = 2823-3) 4.6 mmol/L 3.5-5.1 [facility] Hospitalerum or plasma chloride measurement (moles/volume)2019-12-02 13:40:00* Test Item Value Reference Range Interpretation Comments Chloride Level (test code = 2075-0) 121 mmol/L 98-107 [facility] Hospitalerum or plasma carbon dioxide, total measurement (moles/volume)2019-12-02 13:40:00* Test Item Value Reference Range Interpretation Comments Carbon Dioxide Level (test code = 2028-9) 29 mmol/L 22-29 [facility] Hospitalerum or plasma anion pxv8981-41-57 13:40:00* Test Item Value Reference Range Interpretation Comments Anion Gap (test code = 35114-9) 14.6 mmol/L 8-16 [facility]erum or plasma urea nitrogen measurement (mass/volume)2019-12-02 13:40:00* Test Item Value Reference Range Interpretation Comments Blood Urea Nitrogen (test code = 3094-0) 34 mg/dL 7-26 [facility] Hospitalerum or plasma creatinine measurement (mass/volume)2019-12-02 13:40:00* Test Item Value Reference Range Interpretation Comments Creatinine (test code = 2160-0) 0.70 mg/dL 0.72-1.25 [facility] Hospitalerum or plasma urea nitrogen/creatinine mass xvkwj3987-74-02 13:40:00* Test Item Value Reference Range Interpretation Comments BUN/Creatinine Ratio (test code = 3097-3) 49 6-25 [facility] HospitalEstimated glomerular filtration rate (GFR) xlukznaoeixgt8225-33-12 13:40:00* Test Item Value Reference Range Interpretation Comments Estimat Glomerular Filtration Rate (test code = 147608348) > 60 mL/ min >60 Ranges were taken from the National Kidney Disease Education Program and the [facility] literature.Reference ranges:60 or greater: Uoqkih44-37 ( for 3 consecutive months): Chronic kidney disease 15 or less: Kidney failureMemorial Hermann Southeast HospitalGlucose uklfgkypfkg7848-81-64 13:40:00* Test Item Value Reference Range Interpretation Comments Glucose Level (test code = QZF5378) 104 mg/dL 74-118 [facility] Hospitalerum or plasma calcium measurement (mass/volume)2019-12-02 13:40:00* Test Item Value Reference Range Interpretation Comments Calcium Level (test code = 79018-4) 8.6 mg/dL 8.4-10.2 [facility] Hospitalerum or plasma total bilirubin measurement (mass/volume)2019-12-02 13:40:00* Test Item Value Reference Range Interpretation Comments Total Bilirubin (test code = 1975-2) 0.4 mg/dL 0.2-1.2 [facility] HospitalFluoroscopic procedure less than one hour kaglqeek8897-16-29 13:40:00* Test Item Value Reference Range Interpretation Comments Aspartate Amino Transf (AST/SGOT) (test code = Aspartate Amino Transf (AST/SGOT)) 61 [IU]/L 5-34 [facility] Hospitalerum or plasma alanine aminotransferase measurement (enzymatic activity/volume)2019-12-02 13:40:00* Test Item Value Reference Range Interpretation Comments Alanine Aminotransferase (ALT/SGPT) (test code = 1742-6) 67 [IU]/L 0-55 [facility] Hospitalerum or plasma protein measurement (mass/volume)2019-12-02 13:40:00* Test Item Value Reference Range Interpretation Comments Total Protein (test code = 2885-2) 7.9 g/dL 6.5-8.1 [facility] Hospitalerum or plasma albumin measurement (mass/volume)2019-12-02 13:40:00* Test Item Value Reference Range Interpretation Comments Albumin (test code = 1751-7) 2.9 g/dL 3.5-5.0 [facility] HospitalPlasma globulin measurement (mass/volume) 2019-12-02 13:40:00* Test Item Value Reference Range Interpretation Comments Globulin (test code = 23930-3) 5.0 g/dL 2.3-3.5 [facility] Hospitalerum or plasma albumin/globulin mass bfpsv1356-02-00 13:40:00* Test Item Value Reference Range Interpretation Comments Albumin/Globulin Ratio (test code = 1759-0) 0.6 0.8-2.0 [facility] Hospitalerum or plasma alkaline phosphatase measurement (enzymatic activity/volume)2019-12-02 13:40:00* Test Item Value Reference Range Interpretation Comments Alkaline Phosphatase (test code = 6768-6) 117 [IU]/L 40-150 [facility] Hospitalerum or plasma creatine kinase measurement (enzymatic activity/volume)2019-12-02 13:40:00* Test Item Value Reference Range Interpretation Comments Creatine Kinase (test code = 2157-6) 47 [IU]/L 30-200 [facility] Hospitalerum or plasma creatine kinase MB measurement (mass/volume)2019-12-02 13:40:00* Test Item Value Reference Range Interpretation Comments Creatine Kinase MB (test code = 97122-0) 0.60 ng/mL 0-5.0 [facility] HospitalTroponin I measurement by highly sensitive enzyme hysvmqinfmv1680-61-12 13:40:00* Test Item Value Reference Range Interpretation Comments Troponin I (test code = 05480-4) 0.002 ng/mL 0-0.300 [facility] HospitalBlood leukocytes automated count (number/volume)2019-12-02 13:40:00* Test Item Value Reference Range Interpretation Comments White Blood Count (test code = 6690-2) 5.19 10*3/uL 4.8-10.8 [facility] HospitalBlood erythrocytes automated count (number/volume)2019-12-02 13:40:00* Test Item Value Reference Range Interpretation Comments Red Blood Count (test code = 789-8) 4.39 10*6/mL 4.3-5.7 [facility] HospitalBlood hemoglobin measurement (moles/volume)2019-12-02 13:40:00* Test Item Value Reference Range Interpretation Comments Hemoglobin (test code = 20600-6) 12.6 g/dL 14.0-18.0 [facility] HospitalAutomated blood hematocrit (volume fraction)2019-12-02 13:40:00* Test Item Value Reference Range Interpretation Comments Hematocrit (test code = 4544-3) 43.1 % 38.2-49.6 [facility] HospitalAutomated erythrocyte mean corpuscular xdamht9004-81-92 13:40:00* Test Item Value Reference Range Interpretation Comments Mean Corpuscular Volume (test code = 787-2) 98.2 81-99 [facility] HospitalAutomated erythrocyte mean corpuscular hemoglobin (mass per erythrocyte)2019-12-02 13:40:00* Test Item Value Reference Range Interpretation Comments Mean Corpuscular Hemoglobin (test code = 785-6) 28.7 pg 28-32 [facility] HospitalAutomated erythrocyte mean corpuscular hemoglobin concentration measurement (mass/volume)2019-12-02 13:40:00* Test Item Value Reference Range Interpretation Comments Mean Corpuscular Hemoglobin Concent (test code = 786-4) 29.2 g/dL 31-35 [facility] HospitalRDW TmrYw-Omj4317-97-24 13:40:00* Test Item Value Reference Range Interpretation Comments Red Cell Distribution Width (test code = 85000-7) 13.4 % 11.7 -14.4 [facility] HospitalAutomated blood platelet count (count/volume)2019-12-02 13:40:00* Test Item Value Reference Range Interpretation Comments Platelet Count (test code = 777-3) 69 10*3/uL 140-360 [facility] HospitalAutomated blood segmented neutrophil count as percentage of total eylaadrpwd4506-74-74 13:40:00* Test Item Value Reference Range Interpretation Comments Neutrophils (%) (Auto) (test code = 63949-7) 61.1 % 38.7-80.0 [facility] HospitalAutomated blood lymphocyte count as percentage ot total zbvoekgfdj4598-01-44 13:40:00* Test Item Value Reference Range Interpretation Comments Lymphocytes (%) (Auto) (test code = 736-9) 28.7 % 18.0-39.1 [facility] HospitalAutomated blood monocyte count as percentage of total mzqxribckl8580-05-26 13:40:00* Test Item Value Reference Range Interpretation Comments Monocytes (%) (Auto) (test code = 5905-5) 9.4 % 4.4-11.3 [facility] HospitalAutomated blood eosinophil count as percentage of total bpfamdqlva7830-31-25 13:40:00* Test Item Value Reference Range Interpretation Comments Eosinophils (%) (Auto) (test code = 713-8) 0.2 % 0.0-6.0 [facility] HospitalAutomated blood basophil count as percentage of total evbsksomdn2258-92-78 13:40:00* Test Item Value Reference Range Interpretation Comments Basophils (%) (Auto) (test code = 706-2) 0.2 % 0.0-1.0 [facility] HospitalFluoroscopic procedure less than one hour aaljnhvw1666-42-65 13:40:00* Test Item Value Reference Range Interpretation Comments IM GRANULOCYTES % (test code = IM GRANULOCYTES %) 0.4 % 0.0- 1.0 [facility] HospitalAutomated blood neutrophil count 2019-12-02 13:40:00* Test Item Value Reference Range Interpretation Comments Neutrophils # (Auto) (test code = 751-8) 3.2 2.1-6.9 [facility] HospitalBlood lymphocytes count (number/volume) 2019-12-02 13:40:00* Test Item Value Reference Range Interpretation Comments Lymphocytes # (Auto) (test code = 41984-9) 1.5 1.0-3.2 [facility] HospitalBlood monocytes automated count (number/volume)2019-12-02 13:40:00* Test Item Value Reference Range Interpretation Comments Monocytes # (Auto) (test code = 742-7) 0.5 0.2-0.8 [facility] HospitalAutomated blood eosinophil count 2019-12-02 13:40:00* Test Item Value Reference Range Interpretation Comments Eosinophils # (Auto) (test code = 711-2) 0.0 0.0-0.4 [facility] HospitalAutomated blood basophil count (count/volume)2019-12-02 13:40:00* Test Item Value Reference Range Interpretation Comments Basophils # (Auto) (test code = 704-7) 0.0 0.0-0.1 [facility] HospitalFluoroscopic procedure less than one hour rokdhsrl2724-48-70 13:40:00* Test Item Value Reference Range Interpretation Comments Absolute Immature Granulocyte (auto (mabel t code = Absolute Immature Granulocyte (auto) 0.02 10*3/uL 0-0.1 [facility] HospitalProthrombin time (PT) in platelet poor plasma by coagulation acgqw3661-58-91 13:40:00* Test Item Value Reference Range Interpretation Comments Prothrombin Time (test code = 5902-2) 13.9 s 11.9-14.5 [facility] HospitalINR in Platelet poor plasma by Coagulation [id number] 13:40:00* Test Item Value Reference Range Interpretation Comments Prothromb Time International Ratio (test code = 6301-6) 1.02 Oral Anticoagulant Therapy INR Values:1. Low Intensity Therapy 1.5 - 2.02 . Moderate Intensity Therapy 2.0 - 3.03. High Intensity Therapy(1) 2.5 - 3. 54. High Intensity Therapy(2) 3.0 - 4.05. Panic Value INR > 5.0 [facility] HospitalActivated partial thromboplastin time (aPTT) in platelet poor plasma by coagulation wsszy2286-42-06 13:40:00* Test Item Value Reference Range Interpretation Comments Activated Partial Thromboplast Time (test code = 39744-8) 33.3 s 23.8-35.5 [facility] HospitalUrine color uhxxwhzncyheo7878-19-20 13:40:00* Test Item Value Reference Range Interpretation Comments Urine Color (test code = 5778-6) STRAW YELLOW [facility] HospitalUrine jrkcyfy8683-27-55 13:40:00* Test Item Value Reference Range Interpretation Comments Urine Clarity (test code = 66464-5) SL CLOUDY CLEAR [facility] by Test strip 2019-12-02 13:40:00* Test Item Value Reference Range Interpretation Comments Urine Specific [place] (test code = 5811-5) 1.020 1.010-1.02 5 [facility] HospitalUrine pH measurement by automated test maxxy7629-09-83 13:40:00* Test Item Value Reference Range Interpretation Comments Urine pH (test code = 71929-9) 5.5 5-7 [facility] HospitalUrine leukocyte esterase detection by nwqkqgbj3909-95-12 13:40:00* Test Item Value Reference Range Interpretation Comments Urine Leukocyte Esterase (test code = 5799-2) NEGATIVE NEGATIVE [facility] HospitalUrine nitrite mktvaziyl1014-14-86 13:40:00* Test Item Value Reference Range Interpretation Comments Urine Nitrite (test code = 61437-6) NEGATIVE NEGATIVE [facility] HospitalUrine protein measurement by test strip (mass/volume)2019-12-02 13:40:00* Test Item Value Reference Range Interpretation Comments Urine Protein (test code = 5804-0) 2+ NEGATIVE [facility] HospitalUrine glucose wqgfvgrjh6163-40-80 13:40:00* Test Item Value Reference Range Interpretation Comments Urine Glucose (UA) (test code = 2349-9) NEGATIVE NEGATIVE [facility] HospitalUrine ketones detection by automated test [id number] 13:40:00* Test Item Value Reference Range Interpretation Comments Urine Ketones (test code = 53707-5) NEGATIVE NEGATIVE [facility] HospitalUrine urobilinogen measurement by test strip (mass/volume)2019-12-02 13:40:00* Test Item Value Reference Range Interpretation Comments Urine Urobilinogen (test code = 12010-9) 1 mg/dL 0.2-1 [facility] HospitalUrine total bilirubin measurement (mass/volume)2019-12-02 13:40:00* Test Item Value Reference Range Interpretation Comments Urine Bilirubin (test code = 1978-6) NEGATIVE NEGATIVE [facility] HospitalUrine erythrocytes hinzyivll3724-51-93 13:40:00* Test Item Value Reference Range Interpretation Comments Urine Blood (test code = 55496-6) MODERATE NEGATIVE [facility] HospitalAutomated urine sediment leukocyte count by microscopy (number/high power field)2019-12-02 13:40:00* Test Item Value Reference Range Interpretation Comments Urine WBC (test code = 5821-4) NONE /[HPF] 0-5 [facility] HospitalErythrocytes detection in urine sediment by light bvdvcrttnq8916-19-35 13:40:00* Test Item Value Reference Range Interpretation Comments Urine RBC (test code = 81810-3) 6-10 /[HPF] 0-5 [facility] HospitalBacteria detection in urine sediment by light tzkzfjgzdp5014-71-78 13:40:00* Test Item Value Reference Range Interpretation Comments Urine Bacteria (test code = 24533-6) MODERATE /[HPF] NONE [facility] HospitalEpithelial cells detection in urine sediment by light bnbdxrhuao0529-51-30 13:40:00* Test Item Value Reference Range Interpretation Comments Urine Epithelial Cells (test code = 96556-6) FEW /[LPF] NONE [facility] Hospitalerum or plasma sodium measurement (moles/volume)2019-12-02 13:40:00* Test Item Value Reference Range Interpretation Comments Sodium Level (test code = 2951-2) 160 mmol/L 136-145 [facility] Hospitalerum or plasma potassium measurement (moles/volume)2019-12-02 13:40:00* Test Item Value Reference Range Interpretation Comments Potassium Level (test code = 2823-3) 4.6 mmol/L 3.5-5.1 [facility] Hospitalerum or plasma chloride measurement (moles/volume)2019-12-02 13:40:00* Test Item Value Reference Range Interpretation Comments Chloride Level (test code = 2075-0) 121 mmol/L 98-107 [facility] Hospitalerum or plasma carbon dioxide, total measurement (moles/volume)2019-12-02 13:40:00* Test Item Value Reference Range Interpretation Comments Carbon Dioxide Level (test code = 2028-9) 29 mmol/L 22-29 [facility] Hospitalerum or plasma anion zab8506-43-84 13:40:00* Test Item Value Reference Range Interpretation Comments Anion Gap (test code = 97463-0) 14.6 mmol/L 8-16 [facility] Hospitalerum or plasma urea nitrogen measurement (mass/volume)2019-12-02 13:40:00* Test Item Value Reference Range Interpretation Comments Blood Urea Nitrogen (test code = 3094-0) 34 mg/dL 7-26 [facility] Hospitalerum or plasma creatinine measurement (mass/volume)2019-12-02 13:40:00* Test Item Value Reference Range Interpretation Comments Creatinine (test code = 2160-0) 0.70 mg/dL 0.72-1.25 [facility] Hospitalerum or plasma urea nitrogen/creatinine mass mhwaq2388-43-38 13:40:00* Test Item Value Reference Range Interpretation Comments BUN/Creatinine Ratio (test code = 3097-3) 49 6-25 [facility] HospitalEstimated glomerular filtration rate (GFR) xsfmrxzvmfcfa2384-15-91 13:40:00* Test Item Value Reference Range Interpretation Comments Estimat Glomerular Filtration Rate (test code = 567928613) > 60 mL/ min >60 Ranges were taken from the National Kidney Disease Education Program and the [facility] literature.Reference ranges:60 or greater: Htemzr49-85 ( for 3 consecutive months): Chronic kidney disease 15 or less: Kidney failureMem[facility]ann [facility] HospitalGlucose grhyindgdtu1830-20-80 13:40:00* Test Item Value Reference Range Interpretation Comments Glucose Level (test code = IGX8945) 104 mg/dL 74-118 [facility] Hospitalerum or plasma calcium measurement (mass/volume)2019-12-02 13:40:00* Test Item Value Reference Range Interpretation Comments Calcium Level (test code = 12303-8) 8.6 mg/dL 8.4-10.2 [facility] Hospitalerum or plasma total bilirubin measurement (mass/volume)2019-12-02 13:40:00* Test Item Value Reference Range Interpretation Comments Total Bilirubin (test code = 1975-2) 0.4 mg/dL 0.2-1.2 [facility] HospitalFluoroscopic procedure less than one hour dfevvijn3101-65-68 13:40:00* Test Item Value Reference Range Interpretation Comments Aspartate Amino Transf (AST/SGOT) (test code = Aspartate Amino Transf (AST/SGOT)) 61 [IU]/L 5-34 [facility] Hospitalerum or plasma alanine aminotransferase measurement (enzymatic activity/volume)2019-12-02 13:40:00* Test Item Value Reference Range Interpretation Comments Alanine Aminotransferase (ALT/SGPT) (test code = 1742-6) 67 [IU]/L 0-55 [facility] Hospitalerum or plasma protein measurement (mass/volume)2019-12-02 13:40:00* Test Item Value Reference Range Interpretation Comments Total Protein (test code = 2885-2) 7.9 g/dL 6.5-8.1 [facility] Hospitalerum or plasma albumin measurement (mass/volume)2019-12-02 13:40:00* Test Item Value Reference Range Interpretation Comments Albumin (test code = 1751-7) 2.9 g/dL 3.5-5.0 [facility] HospitalPlasma globulin measurement (mass/volume) 2019-12-02 13:40:00* Test Item Value Reference Range Interpretation Comments Globulin (test code = 18673-1) 5.0 g/dL 2.3-3.5 [facility] Hospitalerum or plasma albumin/globulin mass ocefm9210-47-98 13:40:00* Test Item Value Reference Range Interpretation Comments Albumin/Globulin Ratio (test code = 1759-0) 0.6 0.8-2.0 [facility] Hospitalerum or plasma alkaline phosphatase measurement (enzymatic activity/volume)2019-12-02 13:40:00* Test Item Value Reference Range Interpretation Comments Alkaline Phosphatase (test code = 6768-6) 117 [IU]/L 40-150 [facility] Hospitalerum or plasma creatine kinase measurement (enzymatic activity/volume)2019-12-02 13:40:00* Test Item Value Reference Range Interpretation Comments Creatine Kinase (test code = 2157-6) 47 [IU]/L 30-200 [facility] Hospitalerum or plasma creatine kinase MB measurement (mass/volume)2019-12-02 13:40:00* Test Item Value Reference Range Interpretation Comments Creatine Kinase MB (test code = 42354-4) 0.60 ng/mL 0-5.0 [facility] HospitalTroponin I measurement by highly sensitive enzyme ycykjihgudh3162-77-96 13:40:00* Test Item Value Reference Range Interpretation Comments Troponin I (test code = 30909-4) 0.002 ng/mL 0-0.300 [facility] HospitalBlood leukocytes automated count (number/volume)2019-12-02 13:40:00* Test Item Value Reference Range Interpretation Comments White Blood Count (test code = 6690-2) 5.19 10*3/uL 4.8-10.8 [facility] HospitalBlood erythrocytes automated count (number/volume)2019-12-02 13:40:00* Test Item Value Reference Range Interpretation Comments Red Blood Count (test code = 789-8) 4.39 10*6/mL 4.3-5.7 [facility] HospitalBlood hemoglobin measurement (moles/volume)2019-12-02 13:40:00* Test Item Value Reference Range Interpretation Comments Hemoglobin (test code = 26469-3) 12.6 g/dL 14.0-18.0 [facility] HospitalAutomated blood hematocrit (volume fraction)2019-12-02 13:40:00* Test Item Value Reference Range Interpretation Comments Hematocrit (test code = 4544-3) 43.1 % 38.2-49.6 [facility] HospitalAutomated erythrocyte mean corpuscular wjaeeq9612-04-42 13:40:00* Test Item Value Reference Range Interpretation Comments Mean Corpuscular Volume (test code = 787-2) 98.2 81-99 [facility] HospitalAutomated erythrocyte mean corpuscular hemoglobin (mass per erythrocyte)2019-12-02 13:40:00* Test Item Value Reference Range Interpretation Comments Mean Corpuscular Hemoglobin (test code = 785-6) 28.7 pg 28-32 [facility] HospitalAutomated erythrocyte mean corpuscular hemoglobin concentration measurement (mass/volume)2019-12-02 13:40:00* Test Item Value Reference Range Interpretation Comments Mean Corpuscular Hemoglobin Concent (test code = 786-4) 29.2 g/dL 31-35 [facility] HospitalRDW AagOv-Tzo1639-32-24 13:40:00* Test Item Value Reference Range Interpretation Comments Red Cell Distribution Width (test code = 63150-5) 13.4 % 11.7 -14.4 [facility] HospitalAutomated blood platelet count (count/volume)2019-12-02 13:40:00* Test Item Value Reference Range Interpretation Comments Platelet Count (test code = 777-3) 69 10*3/uL 140-360 [facility] HospitalAutomated blood segmented neutrophil count as percentage of total gqqxehqjmt7618-42-03 13:40:00* Test Item Value Reference Range Interpretation Comments Neutrophils (%) (Auto) (test code = 48020-6) 61.1 % 38.7-80.0 [facility] HospitalAutomated blood lymphocyte count as percentage ot total qzrmssfote9475-54-69 13:40:00* Test Item Value Reference Range Interpretation Comments Lymphocytes (%) (Auto) (test code = 736-9) 28.7 % 18.0-39.1 [facility] HospitalAutomated blood monocyte count as percentage of total otilkqrwmz9174-93-01 13:40:00* Test Item Value Reference Range Interpretation Comments Monocytes (%) (Auto) (test code = 5905-5) 9.4 % 4.4-11.3 [facility] HospitalAutomated blood eosinophil count as percentage of total nzaxlcqcjh0627-27-48 13:40:00* Test Item Value Reference Range Interpretation Comments Eosinophils (%) (Auto) (test code = 713-8) 0.2 % 0.0-6.0 [facility] HospitalAutomated blood basophil count as percentage of total hemjmfrwac8197-70-62 13:40:00* Test Item Value Reference Range Interpretation Comments Basophils (%) (Auto) (test code = 706-2) 0.2 % 0.0-1.0 [facility] HospitalFluoroscopic procedure less than one hour mgrlwcpd4381-13-15 13:40:00* Test Item Value Reference Range Interpretation Comments IM GRANULOCYTES % (test code = IM GRANULOCYTES %) 0.4 % 0.0- 1.0 [facility] HospitalAutomated blood neutrophil count 2019-12-02 13:40:00* Test Item Value Reference Range Interpretation Comments Neutrophils # (Auto) (test code = 751-8) 3.2 2.1-6.9 [facility] HospitalBlood lymphocytes count (number/volume) 2019-12-02 13:40:00* Test Item Value Reference Range Interpretation Comments Lymphocytes # (Auto) (test code = 40004-5) 1.5 1.0-3.2 [facility] HospitalBlood monocytes automated count (number/volume)2019-12-02 13:40:00* Test Item Value Reference Range Interpretation Comments Monocytes # (Auto) (test code = 742-7) 0.5 0.2-0.8 [facility] HospitalAutomated blood eosinophil count 2019-12-02 13:40:00* Test Item Value Reference Range Interpretation Comments Eosinophils # (Auto) (test code = 711-2) 0.0 0.0-0.4 [facility] HospitalAutomated blood basophil count (count/volume)2019-12-02 13:40:00* Test Item Value Reference Range Interpretation Comments Basophils # (Auto) (test code = 704-7) 0.0 0.0-0.1 [facility] HospitalFluoroscopic procedure less than one hour fsubuuif4730-57-33 13:40:00* Test Item Value Reference Range Interpretation Comments Absolute Immature Granulocyte (auto (mabel t code = Absolute Immature Granulocyte (auto) 0.02 10*3/uL 0-0.1 [facility] HospitalProthrombin time (PT) in platelet poor plasma by coagulation shtth0074-04-71 13:40:00* Test Item Value Reference Range Interpretation Comments Prothrombin Time (test code = 5902-2) 13.9 s 11.9-14.5 [facility] HospitalINR in Platelet poor plasma by Coagulation nvyye0678-83-00 13:40:00* Test Item Value Reference Range Interpretation Comments Prothromb Time International Ratio (test code = 6301-6) 1.02 Oral Anticoagulant Therapy INR Values:1. Low Intensity Therapy 1.5 - 2.02 . Moderate Intensity Therapy 2.0 - 3.03. High Intensity Therapy(1) 2.5 - 3. 54. High Intensity Therapy(2) 3.0 - 4.05. Panic Value INR > 5.0 [facility] HospitalActivated partial thromboplastin time (aPTT) in platelet poor plasma by coagulation onydk4769-38-89 13:40:00* Test Item Value Reference Range Interpretation Comments Activated Partial Thromboplast Time (test code = 81205-5) 33.3 s 23.8-35.5 [facility] HospitalUrine color pkozubmfpnwwf4204-67-13 13:40:00* Test Item Value Reference Range Interpretation Comments Urine Color (test code = 5778-6) STRAW YELLOW [facility] HospitalUrine lwjrvrg0204-10-68 13:40:00* Test Item Value Reference Range Interpretation Comments Urine Clarity (test code = 33519-5) SL CLOUDY CLEAR [facility]pecific gravity of Urine by Test strip 2019-12-02 13:40:00* Test Item Value Reference Range Interpretation Comments Urine Specific [place] (test code = 5811-5) 1.020 1.010-1.02 5 [facility] HospitalUrine pH measurement by automated test gybtm2080-90-68 13:40:00* Test Item Value Reference Range Interpretation Comments Urine pH (test code = 79989-7) 5.5 5-7 [facility] HospitalUrine leukocyte esterase detection by pekikwvk1180-35-83 13:40:00* Test Item Value Reference Range Interpretation Comments Urine Leukocyte Esterase (test code = 5799-2) NEGATIVE NEGATIVE [facility] HospitalUrine nitrite vsdpthyoa2934-31-01 13:40:00* Test Item Value Reference Range Interpretation Comments Urine Nitrite (test code = 56949-8) NEGATIVE NEGATIVE [facility] HospitalUrine protein measurement by test strip (mass/volume)2019-12-02 13:40:00* Test Item Value Reference Range Interpretation Comments Urine Protein (test code = 5804-0) 2+ NEGATIVE [facility] HospitalUrine glucose oiyplrdap8951-81-71 13:40:00* Test Item Value Reference Range Interpretation Comments Urine Glucose (UA) (test code = 2349-9) NEGATIVE NEGATIVE [facility] HospitalUrine ketones detection by automated test ddsjt7018-67-04 13:40:00* Test Item Value Reference Range Interpretation Comments Urine Ketones (test code = 85908-8) NEGATIVE NEGATIVE [facility] HospitalUrine urobilinogen measurement by test strip (mass/volume)2019-12-02 13:40:00* Test Item Value Reference Range Interpretation Comments Urine Urobilinogen (test code = 34082-7) 1 mg/dL 0.2-1 [facility] HospitalUrine total bilirubin measurement (mass/volume)2019-12-02 13:40:00* Test Item Value Reference Range Interpretation Comments Urine Bilirubin (test code = 1978-6) NEGATIVE NEGATIVE [facility] HospitalUrine erythrocytes rrtjxtcxv5445-48-01 13:40:00* Test Item Value Reference Range Interpretation Comments Urine Blood (test code = 24470-7) MODERATE NEGATIVE [facility] HospitalAutomated urine sediment leukocyte count by microscopy (number/high power field)2019-12-02 13:40:00* Test Item Value Reference Range Interpretation Comments Urine WBC (test code = 5821-4) NONE /[HPF] 0-5 [facility] HospitalErythrocytes detection in urine sediment by light webzghymmj3938-11-65 13:40:00* Test Item Value Reference Range Interpretation Comments Urine RBC (test code = 23894-2) 6-10 /[HPF] 0-5 [facility] HospitalBacteria detection in urine sediment by light eajvguncrz4165-24-69 13:40:00* Test Item Value Reference Range Interpretation Comments Urine Bacteria (test code = 33137-3) MODERATE /[HPF] NONE [facility] HospitalEpithelial cells detection in urine sediment by light arxrqynmzu4301-52-28 13:40:00* Test Item Value Reference Range Interpretation Comments Urine Epithelial Cells (test code = 31865-7) FEW /[LPF] NONE [facility] Hospitalerum or plasma sodium measurement (moles/volume)2019-12-02 13:40:00* Test Item Value Reference Range Interpretation Comments Sodium Level (test code = 2951-2) 160 mmol/L 136-145 [facility] Hospitalerum or plasma potassium measurement (moles/volume)2019-12-02 13:40:00* Test Item Value Reference Range Interpretation Comments Potassium Level (test code = 2823-3) 4.6 mmol/L 3.5-5.1 [facility] Hospitalerum or plasma chloride measurement (moles/volume)2019-12-02 13:40:00* Test Item Value Reference Range Interpretation Comments Chloride Level (test code = 2075-0) 121 mmol/L 98-107 [facility] Hospitalerum or plasma carbon dioxide, total measurement (moles/volume)2019-12-02 13:40:00* Test Item Value Reference Range Interpretation Comments Carbon Dioxide Level (test code = 2028-9) 29 mmol/L 22-29 [facility] Hospitalerum or plasma anion evq3171-70-73 13:40:00* Test Item Value Reference Range Interpretation Comments Anion Gap (test code = 00414-1) 14.6 mmol/L 8-16 [facility]erum or plasma urea nitrogen measurement (mass/volume)2019-12-02 13:40:00* Test Item Value Reference Range Interpretation Comments Blood Urea Nitrogen (test code = 3094-0) 34 mg/dL 7-26 [facility]erum or plasma creatinine measurement (mass/volume)2019-12-02 13:40:00* Test Item Value Reference Range Interpretation Comments Creatinine (test code = 2160-0) 0.70 mg/dL 0.72-1.25 [facility] Hospitalerum or plasma urea nitrogen/creatinine mass jhwiy0858-46-39 13:40:00* Test Item Value Reference Range Interpretation Comments BUN/Creatinine Ratio (test code = 3097-3) 49 6-25 [facility] HospitalEstimated glomerular filtration rate (GFR) jzlsbgryafmhh8366-37-50 13:40:00* Test Item Value Reference Range Interpretation Comments Estimat Glomerular Filtration Rate (test code = 745621802) > 60 mL/ min >60 Ranges were taken from the National Kidney Disease Education Program and the [facility] literature.Reference ranges:60 or greater: Xaupqh60-70 ( for 3 consecutive months): Chronic kidney disease 15 or less: Kidney failureMemorial Hermann Southeast HospitalGlucose uvtecdsqxwd4127-44-65 13:40:00* Test Item Value Reference Range Interpretation Comments Glucose Level (test code = MRG1400) 104 mg/dL 74-118 [facility] Hospitalerum or plasma calcium measurement (mass/volume)2019-12-02 13:40:00* Test Item Value Reference Range Interpretation Comments Calcium Level (test code = 00326-6) 8.6 mg/dL 8.4-10.2 [facility] Hospitalerum or plasma total bilirubin measurement (mass/volume)2019-12-02 13:40:00* Test Item Value Reference Range Interpretation Comments Total Bilirubin (test code = 1975-2) 0.4 mg/dL 0.2-1.2 [facility] HospitalFluoroscopic procedure less than one hour ctjqijzx5680-45-15 13:40:00* Test Item Value Reference Range Interpretation Comments Aspartate Amino Transf (AST/SGOT) (test code = Aspartate Amino Transf (AST/SGOT)) 61 [IU]/L 5-34 [facility] Hospitalerum or plasma alanine aminotransferase measurement (enzymatic activity/volume)2019-12-02 13:40:00* Test Item Value Reference Range Interpretation Comments Alanine Aminotransferase (ALT/SGPT) (test code = 1742-6) 67 [IU]/L 0-55 [facility] Hospitalerum or plasma protein measurement (mass/volume)2019-12-02 13:40:00* Test Item Value Reference Range Interpretation Comments Total Protein (test code = 2885-2) 7.9 g/dL 6.5-8.1 [facility]erum or plasma albumin measurement (mass/volume)2019-12-02 13:40:00* Test Item Value Reference Range Interpretation Comments Albumin (test code = 1751-7) 2.9 g/dL 3.5-5.0 [facility] HospitalPlasma globulin measurement (mass/volume) 2019-12-02 13:40:00* Test Item Value Reference Range Interpretation Comments Globulin (test code = 41155-0) 5.0 g/dL 2.3-3.5 [facility] Hospitalerum or plasma albumin/globulin mass sdfmo5551-29-22 13:40:00* Test Item Value Reference Range Interpretation Comments Albumin/Globulin Ratio (test code = 1759-0) 0.6 0.8-2.0 [facility]erum or plasma alkaline phosphatase measurement (enzymatic activity/volume)2019-12-02 13:40:00* Test Item Value Reference Range Interpretation Comments Alkaline Phosphatase (test code = 6768-6) 117 [IU]/L 40-150 [facility] Hospitalerum or plasma creatine kinase measurement (enzymatic activity/volume)2019-12-02 13:40:00* Test Item Value Reference Range Interpretation Comments Creatine Kinase (test code = 2157-6) 47 [IU]/L 30-200 [facility] creatine kinase MB measurement (mass/volume)2019-12-02 13:40:00* Test Item Value Reference Range Interpretation Comments Creatine Kinase MB (test code = 04737-4) 0.60 ng/mL 0-5.0 [facility] HospitalT[facility] I measurement by highly sensitive enzyme tuyxpbiecqh4478-70-29 13:40:00* Test Item Value Reference Range Interpretation Comments Troponin I (test code = 81064-6) 0.002 ng/mL 0-0.300 [facility] HospitalBlood leukocytes automated count (number/volume)2019-12-02 13:40:00* Test Item Value Reference Range Interpretation Comments White Blood Count (test code = 6690-2) 5.19 10*3/uL 4.8-10.8 [facility] HospitalBlood erythrocytes automated count (number/volume)2019-12-02 13:40:00* Test Item Value Reference Range Interpretation Comments Red Blood Count (test code = 789-8) 4.39 10*6/mL 4.3-5.7 [facility] HospitalBlood hemoglobin measurement (moles/volume)2019-12-02 13:40:00* Test Item Value Reference Range Interpretation Comments Hemoglobin (test code = 18173-5) 12.6 g/dL 14.0-18.0 [facility] HospitalAutomated blood hematocrit (volume fraction)2019-12-02 13:40:00* Test Item Value Reference Range Interpretation Comments Hematocrit (test code = 4544-3) 43.1 % 38.2-49.6 [facility] HospitalAutomated erythrocyte mean corpuscular mpoydk9375-85-64 13:40:00* Test Item Value Reference Range Interpretation Comments Mean Corpuscular Volume (test code = 787-2) 98.2 81-99 [facility] HospitalAutomated erythrocyte mean corpuscular hemoglobin (mass per erythrocyte)2019-12-02 13:40:00* Test Item Value Reference Range Interpretation Comments Mean Corpuscular Hemoglobin (test code = 785-6) 28.7 pg 28-32 [facility] HospitalAutomated erythrocyte mean corpuscular hemoglobin concentration measurement (mass/volume)2019-12-02 13:40:00* Test Item Value Reference Range Interpretation Comments Mean Corpuscular Hemoglobin Concent (test code = 786-4) 29.2 g/dL 31-35 [facility] HospitalRDW YlsQw-Rge9481-91-24 13:40:00* Test Item Value Reference Range Interpretation Comments Red Cell Distribution Width (test code = 03950-0) 13.4 % 11.7 -14.4 [facility] HospitalAutomated blood platelet count (count/volume)2019-12-02 13:40:00* Test Item Value Reference Range Interpretation Comments Platelet Count (test code = 777-3) 69 10*3/uL 140-360 [facility] HospitalAutomated blood segmented neutrophil count as percentage of total qygkptrqbb1032-42-84 13:40:00* Test Item Value Reference Range Interpretation Comments Neutrophils (%) (Auto) (test code = 27909-4) 61.1 % 38.7-80.0 [facility] HospitalAutomated blood lymphocyte count as percentage ot total stkxmkckvx1068-38-63 13:40:00* Test Item Value Reference Range Interpretation Comments Lymphocytes (%) (Auto) (test code = 736-9) 28.7 % 18.0-39.1 [facility] HospitalAutomated blood monocyte count as percentage of total ifjatjidjt1621-76-33 13:40:00* Test Item Value Reference Range Interpretation Comments Monocytes (%) (Auto) (test code = 5905-5) 9.4 % 4.4-11.3 [facility] HospitalAutomated blood eosinophil count as percentage of total ndmlfsrpox0873-26-80 13:40:00* Test Item Value Reference Range Interpretation Comments Eosinophils (%) (Auto) (test code = 713-8) 0.2 % 0.0-6.0 [facility] HospitalAutomated blood basophil count as percentage of total nkemllnzrt1500-57-74 13:40:00* Test Item Value Reference Range Interpretation Comments Basophils (%) (Auto) (test code = 706-2) 0.2 % 0.0-1.0 [facility] HospitalFluoroscopic procedure less than one hour ujxdbwuw5201-87-08 13:40:00* Test Item Value Reference Range Interpretation Comments IM GRANULOCYTES % (test code = IM GRANULOCYTES %) 0.4 % 0.0- 1.0 [facility] HospitalAutomated blood neutrophil count 2019-12-02 13:40:00* Test Item Value Reference Range Interpretation Comments Neutrophils # (Auto) (test code = 751-8) 3.2 2.1-6.9 [facility] HospitalBlood lymphocytes count (number/volume) 2019-12-02 13:40:00* Test Item Value Reference Range Interpretation Comments Lymphocytes # (Auto) (test code = 08036-9) 1.5 1.0-3.2 [facility] HospitalBlood monocytes automated count (number/volume)2019-12-02 13:40:00* Test Item Value Reference Range Interpretation Comments Monocytes # (Auto) (test code = 742-7) 0.5 0.2-0.8 [facility] HospitalAutomated blood eosinophil count 2019-12-02 13:40:00* Test Item Value Reference Range Interpretation Comments Eosinophils # (Auto) (test code = 711-2) 0.0 0.0-0.4 [facility] HospitalAutomated blood basophil count (count/volume)2019-12-02 13:40:00* Test Item Value Reference Range Interpretation Comments Basophils # (Auto) (test code = 704-7) 0.0 0.0-0.1 [facility] HospitalFluoroscopic procedure less than one hour mbacwkpl1233-46-74 13:40:00* Test Item Value Reference Range Interpretation Comments Absolute Immature Granulocyte (auto (mabel t code = Absolute Immature Granulocyte (auto) 0.02 10*3/uL 0-0.1 [facility] HospitalProthrombin time (PT) in platelet poor plasma by coagulation xuyha8609-32-18 13:40:00* Test Item Value Reference Range Interpretation Comments Prothrombin Time (test code = 5902-2) 13.9 s 11.9-14.5 [facility] HospitalINR in Platelet poor plasma by Coagulation huimx4282-87-69 13:40:00* Test Item Value Reference Range Interpretation Comments Prothromb Time International Ratio (test code = 6301-6) 1.02 Oral Anticoagulant Therapy INR Values:1. Low Intensity Therapy 1.5 - 2.02 . Moderate Intensity Therapy 2.0 - 3.03. High Intensity Therapy(1) 2.5 - 3. 54. High Intensity Therapy(2) 3.0 - 4.05. Panic Value INR > 5.0 [facility] HospitalActivated partial thromboplastin time (aPTT) in platelet poor plasma by coagulation hvrey2397-38-76 13:40:00* Test Item Value Reference Range Interpretation Comments Activated Partial Thromboplast Time (test code = 67462-1) 33.3 s 23.8-35.5 [facility] HospitalUrine color yexiejrqvvbui6677-90-81 13:40:00* Test Item Value Reference Range Interpretation Comments Urine Color (test code = 5778-6) STRAW YELLOW [facility] HospitalUrine ddjbluw7160-31-99 13:40:00* Test Item Value Reference Range Interpretation Comments Urine Clarity (test code = 54068-5) SL CLOUDY CLEAR [facility] Hospitalpecific gravity of Urine by Test strip 2019-12-02 13:40:00* Test Item Value Reference Range Interpretation Comments Urine Specific [place] (test code = 5811-5) 1.020 1.010-1.02 5 [facility] HospitalUrine pH measurement by automated test sfywu0663-06-22 13:40:00* Test Item Value Reference Range Interpretation Comments Urine pH (test code = 95870-4) 5.5 5-7 [facility] HospitalUrine leukocyte esterase detection by sgxujmuh8248-18-33 13:40:00* Test Item Value Reference Range Interpretation Comments Urine Leukocyte Esterase (test code = 5799-2) NEGATIVE NEGATIVE [facility] HospitalUrine nitrite nwbyvrbpg5116-89-44 13:40:00* Test Item Value Reference Range Interpretation Comments Urine Nitrite (test code = 70739-7) NEGATIVE NEGATIVE [facility] HospitalUrine protein measurement by test strip (mass/volume)2019-12-02 13:40:00* Test Item Value Reference Range Interpretation Comments Urine Protein (test code = 5804-0) 2+ NEGATIVE [facility] HospitalUrine glucose ghjmlnwki0058-13-20 13:40:00* Test Item Value Reference Range Interpretation Comments Urine Glucose (UA) (test code = 2349-9) NEGATIVE NEGATIVE [facility] HospitalUrine ketones detection by automated test xguus9958-97-52 13:40:00* Test Item Value Reference Range Interpretation Comments Urine Ketones (test code = 11602-6) NEGATIVE NEGATIVE [facility] HospitalUrine urobilinogen measurement by test strip (mass/volume)2019-12-02 13:40:00* Test Item Value Reference Range Interpretation Comments Urine Urobilinogen (test code = 84992-7) 1 mg/dL 0.2-1 [facility] HospitalUrine total bilirubin measurement (mass/volume)2019-12-02 13:40:00* Test Item Value Reference Range Interpretation Comments Urine Bilirubin (test code = 1978-6) NEGATIVE NEGATIVE [facility] HospitalUrine erythrocytes znitmvofx7530-95-82 13:40:00* Test Item Value Reference Range Interpretation Comments Urine Blood (test code = 99455-4) MODERATE NEGATIVE [facility] HospitalAutomated urine sediment leukocyte count by microscopy (number/high power field)2019-12-02 13:40:00* Test Item Value Reference Range Interpretation Comments Urine WBC (test code = 5821-4) NONE /[HPF] 0-5 [facility] HospitalErythrocytes detection in urine sediment by light vfolfbkfje5882-60-93 13:40:00* Test Item Value Reference Range Interpretation Comments Urine RBC (test code = 15184-9) 6-10 /[HPF] 0-5 [facility] HospitalBacteria detection in urine sediment by light hasbxoyhvy5127-99-73 13:40:00* Test Item Value Reference Range Interpretation Comments Urine Bacteria (test code = 24416-9) MODERATE /[HPF] NONE [facility] HospitalEpithelial cells detection in urine sediment by light qgdwljuksp1568-36-87 13:40:00* Test Item Value Reference Range Interpretation Comments Urine Epithelial Cells (test code = 03248-4) FEW /[LPF] NONE [facility] Hospitalerum or plasma sodium measurement (moles/volume)2019-12-02 13:40:00* Test Item Value Reference Range Interpretation Comments Sodium Level (test code = 2951-2) 160 mmol/L 136-145 [facility] Hospitalerum or plasma potassium measurement (moles/volume)2019-12-02 13:40:00* Test Item Value Reference Range Interpretation Comments Potassium Level (test code = 2823-3) 4.6 mmol/L 3.5-5.1 [facility] Hospitalerum or plasma chloride measurement (moles/volume)2019-12-02 13:40:00* Test Item Value Reference Range Interpretation Comments Chloride Level (test code = 2075-0) 121 mmol/L 98-107 [facility] Hospitalerum or plasma carbon dioxide, total measurement (moles/volume)2019-12-02 13:40:00* Test Item Value Reference Range Interpretation Comments Carbon Dioxide Level (test code = 2028-9) 29 mmol/L 22-29 [facility] Hospitalerum or plasma anion tuv5010-08-11 13:40:00* Test Item Value Reference Range Interpretation Comments Anion Gap (test code = 90493-9) 14.6 mmol/L 8-16 [facility] Hospitalerum or plasma urea nitrogen measurement (mass/volume)2019-12-02 13:40:00* Test Item Value Reference Range Interpretation Comments Blood Urea Nitrogen (test code = 3094-0) 34 mg/dL 7-26 [facility] Hospitalerum or plasma creatinine measurement (mass/volume)2019-12-02 13:40:00* Test Item Value Reference Range Interpretation Comments Creatinine (test code = 2160-0) 0.70 mg/dL 0.72-1.25 [facility] Hospitalerum or plasma urea nitrogen/creatinine mass dlcuc9537-97-65 13:40:00* Test Item Value Reference Range Interpretation Comments BUN/Creatinine Ratio (test code = 3097-3) 49 6-25 [facility] HospitalEstimated glomerular filtration rate (GFR) lvdkanyvvsqdd4061-17-84 13:40:00* Test Item Value Reference Range Interpretation Comments Estimat Glomerular Filtration Rate (test code = 612299093) > 60 mL/ min >60 Ranges were taken from the National Kidney Disease Education Program and the [facility] literature.Reference ranges:60 or greater: Utwhsu19-06 ( for 3 consecutive months): Chronic kidney disease 15 or less: Kidney failureMemorial Hermann Southeast HospitalGlucose sqjusicyahb7924-16-95 13:40:00* Test Item Value Reference Range Interpretation Comments Glucose Level (test code = GXG6999) 104 mg/dL 74-118 [facility] Hospitalerum or plasma calcium measurement (mass/volume)2019-12-02 13:40:00* Test Item Value Reference Range Interpretation Comments Calcium Level (test code = 35241-1) 8.6 mg/dL 8.4-10.2 [facility] Hospitalerum or plasma total bilirubin measurement (mass/volume)2019-12-02 13:40:00* Test Item Value Reference Range Interpretation Comments Total Bilirubin (test code = 1975-2) 0.4 mg/dL 0.2-1.2 [facility] HospitalFluoroscopic procedure less than one hour urgqgjln1450-94-47 13:40:00* Test Item Value Reference Range Interpretation Comments Aspartate Amino Transf (AST/SGOT) (test code = Aspartate Amino Transf (AST/SGOT)) 61 [IU]/L 5-34 [facility] Hospitalerum or plasma alanine aminotransferase measurement (enzymatic activity/volume)2019-12-02 13:40:00* Test Item Value Reference Range Interpretation Comments Alanine Aminotransferase (ALT/SGPT) (test code = 1742-6) 67 [IU]/L 0-55 [facility] Hospitalerum or plasma protein measurement (mass/volume)2019-12-02 13:40:00* Test Item Value Reference Range Interpretation Comments Total Protein (test code = 2885-2) 7.9 g/dL 6.5-8.1 [facility] Hospitalerum or plasma albumin measurement (mass/volume)2019-12-02 13:40:00* Test Item Value Reference Range Interpretation Comments Albumin (test code = 1751-7) 2.9 g/dL 3.5-5.0 [facility] HospitalPlasma globulin measurement (mass/volume) 2019-12-02 13:40:00* Test Item Value Reference Range Interpretation Comments Globulin (test code = 80563-0) 5.0 g/dL 2.3-3.5 [facility] Hospitalerum or plasma albumin/globulin mass uavrz9810-68-01 13:40:00* Test Item Value Reference Range Interpretation Comments Albumin/Globulin Ratio (test code = 1759-0) 0.6 0.8-2.0 [facility] Hospitalerum or plasma alkaline phosphatase measurement (enzymatic activity/volume)2019-12-02 13:40:00* Test Item Value Reference Range Interpretation Comments Alkaline Phosphatase (test code = 6768-6) 117 [IU]/L 40-150 [facility] Hospitalerum or plasma creatine kinase measurement (enzymatic activity/volume)2019-12-02 13:40:00* Test Item Value Reference Range Interpretation Comments Creatine Kinase (test code = 2157-6) 47 [IU]/L 30-200 [facility] Hospitalerum or plasma creatine kinase MB measurement (mass/volume)2019-12-02 13:40:00* Test Item Value Reference Range Interpretation Comments Creatine Kinase MB (test code = 00524-7) 0.60 ng/mL 0-5.0 [facility] HospitalTroponin I measurement by highly sensitive enzyme kguzufekxps0547-25-34 13:40:00* Test Item Value Reference Range Interpretation Comments Troponin I (test code = 23763-5) 0.002 ng/mL 0-0.300 [facility] HospitalBlood leukocytes automated count (number/volume)2019-12-02 13:40:00* Test Item Value Reference Range Interpretation Comments White Blood Count (test code = 6690-2) 5.19 10*3/uL 4.8-10.8 [facility] HospitalBlworthington medical [facility] erythrocytes automated count (number/volume)2019-12-02 13:40:00* Test Item Value Reference Range Interpretation Comments Red Blood Count (test code = 789-8) 4.39 10*6/mL 4.3-5.7 [facility] hemoglobin measurement (moles/volume)2019-12-02 13:40:00* Test Item Value Reference Range Interpretation Comments Hemoglobin (test code = 77740-5) 12.6 g/dL 14.0-18.0 [facility] HospitalAutomated blood hematocrit (volume fraction)2019-12-02 13:40:00* Test Item Value Reference Range Interpretation Comments Hematocrit (test code = 4544-3) 43.1 % 38.2-49.6 [facility] HospitalAutomated erythrocyte mean corpuscular fmcuib4828-59-31 13:40:00* Test Item Value Reference Range Interpretation Comments Mean Corpuscular Volume (test code = 787-2) 98.2 81-99 [facility] HospitalAutomated erythrocyte mean corpuscular hemoglobin (mass per erythrocyte)2019-12-02 13:40:00* Test Item Value Reference Range Interpretation Comments Mean Corpuscular Hemoglobin (test code = 785-6) 28.7 pg 28-32 [facility] HospitalAutomated erythrocyte mean corpuscular hemoglobin concentration measurement (mass/volume)2019-12-02 13:40:00* Test Item Value Reference Range Interpretation Comments Mean Corpuscular Hemoglobin Concent (test code = 786-4) 29.2 g/dL 31-35 [facility] HospitalRDW LkqNg-Dvx8249-50-24 13:40:00* Test Item Value Reference Range Interpretation Comments Red Cell Distribution Width (test code = 90208-3) 13.4 % 11.7 -14.4 [facility] HospitalAutomated blood platelet count (count/volume)2019-12-02 13:40:00* Test Item Value Reference Range Interpretation Comments Platelet Count (test code = 777-3) 69 10*3/uL 140-360 [facility] HospitalAutomated blood segmented neutrophil count as percentage of total baijezslko4425-74-52 13:40:00* Test Item Value Reference Range Interpretation Comments Neutrophils (%) (Auto) (test code = 14853-3) 61.1 % 38.7-80.0 [facility] HospitalAutomated blood lymphocyte count as percentage ot total thvyjmgycb4250-17-64 13:40:00* Test Item Value Reference Range Interpretation Comments Lymphocytes (%) (Auto) (test code = 736-9) 28.7 % 18.0-39.1 [facility] HospitalAutomated blood monocyte count as percentage of total nptmigbdzg1276-35-24 13:40:00* Test Item Value Reference Range Interpretation Comments Monocytes (%) (Auto) (test code = 5905-5) 9.4 % 4.4-11.3 [facility] HospitalAutomated blood eosinophil count as percentage of total whmczqizwz9102-93-91 13:40:00* Test Item Value Reference Range Interpretation Comments Eosinophils (%) (Auto) (test code = 713-8) 0.2 % 0.0-6.0 [facility] HospitalAutomated blood basophil count as percentage of total rewjnbuesp8252-95-17 13:40:00* Test Item Value Reference Range Interpretation Comments Basophils (%) (Auto) (test code = 706-2) 0.2 % 0.0-1.0 [facility] HospitalFluoroscopic procedure less than one hour sziungjm8296-29-30 13:40:00* Test Item Value Reference Range Interpretation Comments IM GRANULOCYTES % (test code = IM GRANULOCYTES %) 0.4 % 0.0- 1.0 [facility] HospitalAutomated blood neutrophil count 2019-12-02 13:40:00* Test Item Value Reference Range Interpretation Comments Neutrophils # (Auto) (test code = 751-8) 3.2 2.1-6.9 [facility] HospitalBlood lymphocytes count (number/volume) 2019-12-02 13:40:00* Test Item Value Reference Range Interpretation Comments Lymphocytes # (Auto) (test code = 65591-5) 1.5 1.0-3.2 [facility] HospitalBlood monocytes automated count (number/volume)2019-12-02 13:40:00* Test Item Value Reference Range Interpretation Comments Monocytes # (Auto) (test code = 742-7) 0.5 0.2-0.8 [facility] HospitalAutomated blood eosinophil count 2019-12-02 13:40:00* Test Item Value Reference Range Interpretation Comments Eosinophils # (Auto) (test code = 711-2) 0.0 0.0-0.4 [facility] HospitalAutomated blood basophil count (count/volume)2019-12-02 13:40:00* Test Item Value Reference Range Interpretation Comments Basophils # (Auto) (test code = 704-7) 0.0 0.0-0.1 [facility] HospitalFluoroscopic procedure less than one hour kmwwldhg3234-65-48 13:40:00* Test Item Value Reference Range Interpretation Comments Absolute Immature Granulocyte (auto (mabel t code = Absolute Immature Granulocyte (auto) 0.02 10*3/uL 0-0.1 [facility] HospitalProthrombin time (PT) in platelet poor plasma by coagulation hwbnr3709-69-33 13:40:00* Test Item Value Reference Range Interpretation Comments Prothrombin Time (test code = 5902-2) 13.9 s 11.9-14.5 [facility] HospitalINR in Platelet poor plasma by Coagulation dlgvo3527-45-65 13:40:00* Test Item Value Reference Range Interpretation Comments Prothromb Time International Ratio (test code = 6301-6) 1.02 Oral Anticoagulant Therapy INR Values:1. Low Intensity Therapy 1.5 - 2.02 . Moderate Intensity Therapy 2.0 - 3.03. High Intensity Therapy(1) 2.5 - 3. 54. High Intensity Therapy(2) 3.0 - 4.05. Panic Value INR > 5.0 [facility] HospitalActivated partial thromboplastin time (aPTT) in platelet poor plasma by coagulation lhelu4717-44-13 13:40:00* Test Item Value Reference Range Interpretation Comments Activated Partial Thromboplast Time (test code = 91558-5) 33.3 s 23.8-35.5 [facility] HospitalUrine color yzhicjtcwujmq4341-96-55 13:40:00* Test Item Value Reference Range Interpretation Comments Urine Color (test code = 5778-6) STRAW YELLOW [facility] HospitalUrine pcbbkke9927-76-17 13:40:00* Test Item Value Reference Range Interpretation Comments Urine Clarity (test code = 80729-5) SL CLOUDY CLEAR [facility]pecific gravity of Urine by Test strip 2019-12-02 13:40:00* Test Item Value Reference Range Interpretation Comments Urine Specific [place] (test code = 5811-5) 1.020 1.010-1.02 5 [facility] HospitalUrine pH measurement by automated test qjwwu4757-02-12 13:40:00* Test Item Value Reference Range Interpretation Comments Urine pH (test code = 52932-5) 5.5 5-7 [facility] HospitalUrine leukocyte esterase detection by murnjknx3470-45-89 13:40:00* Test Item Value Reference Range Interpretation Comments Urine Leukocyte Esterase (test code = 5799-2) NEGATIVE NEGATIVE [facility] HospitalUrine nitrite ymltonzxo7988-69-98 13:40:00* Test Item Value Reference Range Interpretation Comments Urine Nitrite (test code = 57936-9) NEGATIVE NEGATIVE [facility] HospitalUrine protein measurement by test strip (mass/volume)2019-12-02 13:40:00* Test Item Value Reference Range Interpretation Comments Urine Protein (test code = 5804-0) 2+ NEGATIVE [facility] HospitalUrine glucose cjzwlstdg1626-48-82 13:40:00* Test Item Value Reference Range Interpretation Comments Urine Glucose (UA) (test code = 2349-9) NEGATIVE NEGATIVE [facility] HospitalUrine ketones detection by automated test tcgst3719-31-60 13:40:00* Test Item Value Reference Range Interpretation Comments Urine Ketones (test code = 69659-2) NEGATIVE NEGATIVE [facility] HospitalUrine urobilinogen measurement by test strip (mass/volume)2019-12-02 13:40:00* Test Item Value Reference Range Interpretation Comments Urine Urobilinogen (test code = 76969-8) 1 mg/dL 0.2-1 [facility] HospitalUrine total bilirubin measurement (mass/volume)2019-12-02 13:40:00* Test Item Value Reference Range Interpretation Comments Urine Bilirubin (test code = 1978-6) NEGATIVE NEGATIVE [facility] HospitalUrine erythrocytes sybaeqhvd9641-94-37 13:40:00* Test Item Value Reference Range Interpretation Comments Urine Blood (test code = 29679-7) MODERATE NEGATIVE [facility] HospitalAutomated urine sediment leukocyte count by microscopy (number/high power field)2019-12-02 13:40:00* Test Item Value Reference Range Interpretation Comments Urine WBC (test code = 5821-4) NONE /[HPF] 0-5 [facility] HospitalErythrocytes detection in urine sediment by light ppaccetjob4984-75-69 13:40:00* Test Item Value Reference Range Interpretation Comments Urine RBC (test code = 96123-7) 6-10 /[HPF] 0-5 [facility] HospitalBacteria detection in urine sediment by light anfwlzanhv1623-65-90 13:40:00* Test Item Value Reference Range Interpretation Comments Urine Bacteria (test code = 25188-4) MODERATE /[HPF] NONE [facility] HospitalEpithelial cells detection in urine sediment by light saddksmqgs1684-45-47 13:40:00* Test Item Value Reference Range Interpretation Comments Urine Epithelial Cells (test code = 83275-9) FEW /[LPF] NONE [facility]erum or plasma sodium measurement (moles/volume)2019-12-02 13:40:00* Test Item Value Reference Range Interpretation Comments Sodium Level (test code = 2951-2) 160 mmol/L 136-145 [facility] Hospitalerum or plasma potassium measurement (moles/volume)2019-12-02 13:40:00* Test Item Value Reference Range Interpretation Comments Potassium Level (test code = 2823-3) 4.6 mmol/L 3.5-5.1 [facility] chloride measurement (moles/volume)2019-12-02 13:40:00* Test Item Value Reference Range Interpretation Comments Chloride Level (test code = 2075-0) 121 mmol/L 98-107 [facility]er[facility] carbon dioxide, total measurement (moles/volume)2019-12-02 13:40:00* Test Item Value Reference Range Interpretation Comments Carbon Dioxide Level (test code = 2028-9) 29 mmol/L 22-29 [facility]er[facility] anion cub5548-93-39 13:40:00* Test Item Value Reference Range Interpretation Comments Anion Gap (test code = 85734-7) 14.6 mmol/L 8-16 [facility] urea nitrogen measurement (mass/volume)2019-12-02 13:40:00* Test Item Value Reference Range Interpretation Comments Blood Urea Nitrogen (test code = 3094-0) 34 mg/dL 7-26 [facility] creatinine measurement (mass/volume)2019-12-02 13:40:00* Test Item Value Reference Range Interpretation Comments Creatinine (test code = 2160-0) 0.70 mg/dL 0.72-1.25 [facility] urea nitrogen/creatinine mass ckpdr7892-97-65 13:40:00* Test Item Value Reference Range Interpretation Comments BUN/Creatinine Ratio (test code = 3097-3) 49 6-25 [facility] HospitalEstimated glomerular filtration rate (GFR) clfybzqatnkzg2539-50-15 13:40:00* Test Item Value Reference Range Interpretation Comments Estimat Glomerular Filtration Rate (test code = 216399172) > 60 mL/ min >60 Ranges were taken from the National Kidney Disease Education Program and the [facility] literature.Reference ranges:60 or greater: [id number] ( for 3 consecutive months): Chronic kidney disease 15 or less: Kid[facility] failureMem[facility] HospitalGlucose esoceupkdhq1616-10-75 13:40:00* Test Item Value Reference Range Interpretation Comments Glucose Level (test code = XLH1929) 104 mg/dL 74-118 [facility] calcium measurement (mass/volume)2019-12-02 13:40:00* Test Item Value Reference Range Interpretation Comments Calcium Level (test code = 62825-0) 8.6 mg/dL 8.4-10.2 [facility]er[facility] total bilirubin measurement (mass/volume)2019-12-02 13:40:00* Test Item Value Reference Range Interpretation Comments Total Bilirubin (test code = 1975-2) 0.4 mg/dL 0.2-1.2 [facility] HospitalFluoroscopic procedure less than one hour wgvueuza5725-03-17 13:40:00* Test Item Value Reference Range Interpretation Comments Aspartate Amino Transf (AST/SGOT) (test code = Aspartate Amino Transf (AST/SGOT)) 61 [IU]/L 5-34 [facility] alanine aminotransferase measurement (enzymatic activity/volume)2019-12-02 13:40:00* Test Item Value Reference Range Interpretation Comments Alanine Aminotransferase (ALT/SGPT) (test code = 1742-6) 67 [IU]/L 0-55 [facility]er[facility] protein measurement (mass/volume)2019-12-02 13:40:00* Test Item Value Reference Range Interpretation Comments Total Protein (test code = 2885-2) 7.9 g/dL 6.5-8.1 [facility] plasma albumin measurement (mass/volume)2019-12-02 13:40:00* Test Item Value Reference Range Interpretation Comments Albumin (test code = 1751-7) 2.9 g/dL 3.5-5.0 [facility] HospitalPlasma globulin measurement (mass/volume) 2019-12-02 13:40:00* Test Item Value Reference Range Interpretation Comments Globulin (test code = 95443-1) 5.0 g/dL 2.3-3.5 [facility]er[facility] plasma albumin/globulin mass khkmh2110-48-41 13:40:00* Test Item Value Reference Range Interpretation Comments Albumin/Globulin Ratio (test code = 1759-0) 0.6 0.8-2.0 [facility]er[facility] plasma alkaline phosphatase measurement (enzymatic activity/volume)2019-12-02 13:40:00* Test Item Value Reference Range Interpretation Comments Alkaline Phosphatase (test code = 6768-6) 117 [IU]/L 40-150 [facility]er[facility] or plasma creatine kinase measurement (enzymatic activity/volume)2019-12-02 13:40:00* Test Item Value Reference Range Interpretation Comments Creatine Kinase (test code = 2157-6) 47 [IU]/L 30-200 [facility]erum or plasma creatine kinase MB measurement (mass/volume)2019-12-02 13:40:00* Test Item Value Reference Range Interpretation Comments Creatine Kinase MB (test code = 01002-9) 0.60 ng/mL 0-5.0 [facility] HospitalTroponin I measurement by highly sensitive enzyme bucdakkbxmy7419-68-83 13:40:00* Test Item Value Reference Range Interpretation Comments Troponin I (test code = 17790-2) 0.002 ng/mL 0-0.300 [facility] HospitalBlood leukocytes automated count (number/volume)2019-12-02 13:40:00* Test Item Value Reference Range Interpretation Comments White Blood Count (test code = 6690-2) 5.19 10*3/uL 4.8-10.8 [facility] HospitalBlood erythrocytes automated count (number/volume)2019-12-02 13:40:00* Test Item Value Reference Range Interpretation Comments Red Blood Count (test code = 789-8) 4.39 10*6/mL 4.3-5.7 [facility] HospitalBlood hemoglobin measurement (moles/volume)2019-12-02 13:40:00* Test Item Value Reference Range Interpretation Comments Hemoglobin (test code = 08844-0) 12.6 g/dL 14.0-18.0 [facility] HospitalAutomated blood hematocrit (volume fraction)2019-12-02 13:40:00* Test Item Value Reference Range Interpretation Comments Hematocrit (test code = 4544-3) 43.1 % 38.2-49.6 [facility] HospitalAutomated erythrocyte mean corpuscular cxwcgl3898-60-20 13:40:00* Test Item Value Reference Range Interpretation Comments Mean Corpuscular Volume (test code = 787-2) 98.2 81-99 [facility] HospitalAutomated erythrocyte mean corpuscular hemoglobin (mass per erythrocyte)2019-12-02 13:40:00* Test Item Value Reference Range Interpretation Comments Mean Corpuscular Hemoglobin (test code = 785-6) 28.7 pg 28-32 [facility] HospitalAutomated erythrocyte mean corpuscular hemoglobin concentration measurement (mass/volume)2019-12-02 13:40:00* Test Item Value Reference Range Interpretation Comments Mean Corpuscular Hemoglobin Concent (test code = 786-4) 29.2 g/dL 31-35 [facility] HospitalRDW SpmDo-Qzy0681-27-24 13:40:00* Test Item Value Reference Range Interpretation Comments Red Cell Distribution Width (test code = 56128-6) 13.4 % 11.7 -14.4 [facility] HospitalAutomated blood platelet count (count/volume)2019-12-02 13:40:00* Test Item Value Reference Range Interpretation Comments Platelet Count (test code = 777-3) 69 10*3/uL 140-360 [facility]ed [facility] count as percentage of total gdsxbrmvgs9798-17-46 13:40:00* Test Item Value Reference Range Interpretation Comments Neutrophils (%) (Auto) (test code = 15293-0) 61.1 % 38.7-80.0 [facility] HospitalAutomated blood lymphocyte count as percentage ot total hhfybkuxax5192-30-33 13:40:00* Test Item Value Reference Range Interpretation Comments Lymphocytes (%) (Auto) (test code = 736-9) 28.7 % 18.0-39.1 [facility] HospitalAutformerly [facility] hospitaled blood monocyte count as percentage of total eojoohlckh2748-91-00 13:40:00* Test Item Value Reference Range Interpretation Comments Monocytes (%) (Auto) (test code = 5905-5) 9.4 % 4.4-11.3 [facility] HospitalAutomated blood eosinophil count as percentage of total srucgyfrrs5116-50-94 13:40:00* Test Item Value Reference Range Interpretation Comments Eosinophils (%) (Auto) (test code = 713-8) 0.2 % 0.0-6.0 [facility] HospitalAutomated blood basophil count as percentage of total mwtmdilods7999-35-83 13:40:00* Test Item Value Reference Range Interpretation Comments Basophils (%) (Auto) (test code = 706-2) 0.2 % 0.0-1.0 [facility] HospitalFluoroscopic procedure less than one hour squqkjnb2088-42-22 13:40:00* Test Item Value Reference Range Interpretation Comments IM GRANULOCYTES % (test code = IM GRANULOCYTES %) 0.4 % 0.0- 1.0 [facility] HospitalAutomated blood neutrophil count 2019-12-02 13:40:00* Test Item Value Reference Range Interpretation Comments Neutrophils # (Auto) (test code = 751-8) 3.2 2.1-6.9 [facility] HospitalBlood lymphocytes count (number/volume) 2019-12-02 13:40:00* Test Item Value Reference Range Interpretation Comments Lymphocytes # (Auto) (test code = 42025-3) 1.5 1.0-3.2 [facility] HospitalBlood monocytes automated count (number/volume)2019-12-02 13:40:00* Test Item Value Reference Range Interpretation Comments Monocytes # (Auto) (test code = 742-7) 0.5 0.2-0.8 [facility] HospitalAutomated blood eosinophil count 2019-12-02 13:40:00* Test Item Value Reference Range Interpretation Comments Eosinophils # (Auto) (test code = 711-2) 0.0 0.0-0.4 [facility] HospitalAutomated blood basophil count (count/volume)2019-12-02 13:40:00* Test Item Value Reference Range Interpretation Comments Basophils # (Auto) (test code = 704-7) 0.0 0.0-0.1 [facility] HospitalFluoroscopic procedure less than one hour raoevhcx0323-57-35 13:40:00* Test Item Value Reference Range Interpretation Comments Absolute Immature Granulocyte (auto (mabel t code = Absolute Immature Granulocyte (auto) 0.02 10*3/uL 0-0.1 [facility] HospitalProthrombin time (PT) in platelet poor plasma by coagulation jbsya5781-03-64 13:40:00* Test Item Value Reference Range Interpretation Comments Prothrombin Time (test code = 5902-2) 13.9 s 11.9-14.5 [facility] HospitalINR in Platelet poor plasma by Coagulation kdjyp9323-25-06 13:40:00* Test Item Value Reference Range Interpretation Comments Prothromb Time International Ratio (test code = 6301-6) 1.02 Oral Anticoagulant Therapy INR Values:1. Low Intensity Therapy 1.5 - 2.02 . Moderate Intensity Therapy 2.0 - 3.03. High Intensity Therapy(1) 2.5 - 3. 54. High Intensity Therapy(2) 3.0 - 4.05. Panic Value INR > 5.0 [facility] HospitalActivated partial thromboplastin time (aPTT) in platelet poor plasma by coagulation skzsb1879-48-55 13:40:00* Test Item Value Reference Range Interpretation Comments Activated Partial Thromboplast Time (test code = 19326-6) 33.3 s 23.8-35.5 [facility] HospitalUrine color rywwjkscpphpt1827-59-87 13:40:00* Test Item Value Reference Range Interpretation Comments Urine Color (test code = 5778-6) STRAW YELLOW [facility] HospitalUrine okhjpap2776-24-82 13:40:00* Test Item Value Reference Range Interpretation Comments Urine Clarity (test code = 15416-6) SL CLOUDY CLEAR [facility] Hospitalpecific gravity of Urine by Test strip 2019-12-02 13:40:00* Test Item Value Reference Range Interpretation Comments Urine Specific [place] (test code = 5811-5) 1.020 1.010-1.02 5 [facility] HospitalUrine pH measurement by automated test ywhkz2328-16-06 13:40:00* Test Item Value Reference Range Interpretation Comments Urine pH (test code = 36412-3) 5.5 5-7 [facility] HospitalUrine leukocyte esterase detection by sweqplos0471-75-60 13:40:00* Test Item Value Reference Range Interpretation Comments Urine Leukocyte Esterase (test code = 5799-2) NEGATIVE NEGATIVE [facility] HospitalUrine nitrite cexnoyiqo2380-06-59 13:40:00* Test Item Value Reference Range Interpretation Comments Urine Nitrite (test code = 34738-7) NEGATIVE NEGATIVE [facility] HospitalUrine protein measurement by test strip (mass/volume)2019-12-02 13:40:00* Test Item Value Reference Range Interpretation Comments Urine Protein (test code = 5804-0) 2+ NEGATIVE [facility] HospitalUrine glucose okbragxgo3447-37-32 13:40:00* Test Item Value Reference Range Interpretation Comments Urine Glucose (UA) (test code = 2349-9) NEGATIVE NEGATIVE [facility] HospitalUrine ketones detection by automated test udvis6834-82-83 13:40:00* Test Item Value Reference Range Interpretation Comments Urine Ketones (test code = 22120-3) NEGATIVE NEGATIVE [facility] HospitalUrine urobilinogen measurement by test strip (mass/volume)2019-12-02 13:40:00* Test Item Value Reference Range Interpretation Comments Urine Urobilinogen (test code = 61753-1) 1 mg/dL 0.2-1 [facility] HospitalUrine total bilirubin measurement (mass/volume)2019-12-02 13:40:00* Test Item Value Reference Range Interpretation Comments Urine Bilirubin (test code = 1978-6) NEGATIVE NEGATIVE [facility] HospitalUrine erythrocytes hviozrrzf2252-45-50 13:40:00* Test Item Value Reference Range Interpretation Comments Urine Blood (test code = 68793-8) MODERATE NEGATIVE [facility] HospitalAutomated urine sediment leukocyte count by microscopy (number/high power field)2019-12-02 13:40:00* Test Item Value Reference Range Interpretation Comments Urine WBC (test code = 5821-4) NONE /[HPF] 0-5 [facility] HospitalErythrocytes detection in urine sediment by light tojxwvahhq1307-21-26 13:40:00* Test Item Value Reference Range Interpretation Comments Urine RBC (test code = 68542-0) 6-10 /[HPF] 0-5 [facility] HospitalBacteria detection in urine sediment by light apzyiyaqyb0935-93-34 13:40:00* Test Item Value Reference Range Interpretation Comments Urine Bacteria (test code = 07909-6) MODERATE /[HPF] NONE [facility] HospitalEpithelial cells detection in urine sediment by light akpqobvspt8728-53-98 13:40:00* Test Item Value Reference Range Interpretation Comments Urine Epithelial Cells (test code = 46018-9) FEW /[LPF] NONE [facility]er[facility] or plasma sodium measurement (moles/volume)2019-12-02 13:40:00* Test Item Value Reference Range Interpretation Comments Sodium Level (test code = 2951-2) 160 mmol/L 136-145 [facility]erum or plasma potassium measurement (moles/volume)2019-12-02 13:40:00* Test Item Value Reference Range Interpretation Comments Potassium Level (test code = 2823-3) 4.6 mmol/L 3.5-5.1 [facility]er[facility] or plasma chloride measurement (moles/volume)2019-12-02 13:40:00* Test Item Value Reference Range Interpretation Comments Chloride Level (test code = 2075-0) 121 mmol/L 98-107 [facility]er[facility] or plasma carbon dioxide, total measurement (moles/volume)2019-12-02 13:40:00* Test Item Value Reference Range Interpretation Comments Carbon Dioxide Level (test code = 2028-9) 29 mmol/L 22-29 [facility]er[facility] or plasma anion fxk6432-04-89 13:40:00* Test Item Value Reference Range Interpretation Comments Anion Gap (test code = 34565-3) 14.6 mmol/L 8-16 [facility]er[facility] or plasma urea nitrogen measurement (mass/volume)2019-12-02 13:40:00* Test Item Value Reference Range Interpretation Comments Blood Urea Nitrogen (test code = 3094-0) 34 mg/dL 7-26 [facility]er[facility] or plasma creatinine measurement (mass/volume)2019-12-02 13:40:00* Test Item Value Reference Range Interpretation Comments Creatinine (test code = 2160-0) 0.70 mg/dL 0.72-1.25 [facility]er[facility] or plasma urea nitrogen/creatinine mass nmtjp0198-08-00 13:40:00* Test Item Value Reference Range Interpretation Comments BUN/Creatinine Ratio (test code = 3097-3) 49 6-25 [facility] HospitalEstimated glomerular filtration rate (GFR) khsevbtskmvij7928-30-38 13:40:00* Test Item Value Reference Range Interpretation Comments Estimat Glomerular Filtration Rate (test code = 967698994) > 60 mL/ min >60 Ranges were taken from the National Kidney Disease Education Program and the [facility] Kidney Foundation literature.Reference ranges:60 or greater: Owutra04-60 ( for 3 consecutive months): Chronic kidney disease 15 or less: Kidney failureMemorial Hermann Southeast HospitalGlucose pkcgzpanhev0641-12-69 13:40:00* Test Item Value Reference Range Interpretation Comments Glucose Level (test code = QUY5681) 104 mg/dL 74-118 [facility]er[facility] or plasma calcium measurement (mass/volume)2019-12-02 13:40:00* Test Item Value Reference Range Interpretation Comments Calcium Level (test code = 15423-9) 8.6 mg/dL 8.4-10.2 [facility]er[facility] or plasma total bilirubin measurement (mass/volume)2019-12-02 13:40:00* Test Item Value Reference Range Interpretation Comments Total Bilirubin (test code = 1975-2) 0.4 mg/dL 0.2-1.2 [facility] HospitalFluoroscopic procedure less than one hour soahtdqz2775-05-06 13:40:00* Test Item Value Reference Range Interpretation Comments Aspartate Amino Transf (AST/SGOT) (test code = Aspartate Amino Transf (AST/SGOT)) 61 [IU]/L 5-34 [facility] Hospitalerum or plasma alanine aminotransferase measurement (enzymatic activity/volume)2019-12-02 13:40:00* Test Item Value Reference Range Interpretation Comments Alanine Aminotransferase (ALT/SGPT) (test code = 1742-6) 67 [IU]/L 0-55 [facility]erum or plasma protein measurement (mass/volume)2019-12-02 13:40:00* Test Item Value Reference Range Interpretation Comments Total Protein (test code = 2885-2) 7.9 g/dL 6.5-8.1 [facility]er[facility] or plasma albumin measurement (mass/volume)2019-12-02 13:40:00* Test Item Value Reference Range Interpretation Comments Albumin (test code = 1751-7) 2.9 g/dL 3.5-5.0 [facility] HospitalPlasma globulin measurement (mass/volume) 2019-12-02 13:40:00* Test Item Value Reference Range Interpretation Comments Globulin (test code = 88509-0) 5.0 g/dL 2.3-3.5 [facility]er[facility] or plasma albumin/globulin mass nrrbw9930-71-33 13:40:00* Test Item Value Reference Range Interpretation Comments Albumin/Globulin Ratio (test code = 1759-0) 0.6 0.8-2.0 [facility]er[facility] or plasma alkaline phosphatase measurement (enzymatic activity/volume)2019-12-02 13:40:00* Test Item Value Reference Range Interpretation Comments Alkaline Phosphatase (test code = 6768-6) 117 [IU]/L 40-150 [facility]erum or plasma creatine kinase measurement (enzymatic activity/volume)2019-12-02 13:40:00* Test Item Value Reference Range Interpretation Comments Creatine Kinase (test code = 2157-6) 47 [IU]/L 30-200 [facility]erum or plasma creatine kinase MB measurement (mass/volume)2019-12-02 13:40:00* Test Item Value Reference Range Interpretation Comments Creatine Kinase MB (test code = 16841-6) 0.60 ng/mL 0-5.0 [facility] HospitalTroponin I measurement by highly sensitive enzyme xxhqkzpnotw9427-14-02 13:40:00* Test Item Value Reference Range Interpretation Comments Troponin I (test code = 63474-1) 0.002 ng/mL 0-0.300 [facility] HospitalBlood leukocytes automated count (number/volume)2019-12-02 13:40:00* Test Item Value Reference Range Interpretation Comments White Blood Count (test code = 6690-2) 5.19 10*3/uL 4.8-10.8 [facility] HospitalBlood erythrocytes automated count (number/volume)2019-12-02 13:40:00* Test Item Value Reference Range Interpretation Comments Red Blood Count (test code = 789-8) 4.39 10*6/mL 4.3-5.7 [facility] HospitalBlood hemoglobin measurement (moles/volume)2019-12-02 13:40:00* Test Item Value Reference Range Interpretation Comments Hemoglobin (test code = 22069-2) 12.6 g/dL 14.0-18.0 [facility] HospitalAutomated blood hematocrit (volume fraction)2019-12-02 13:40:00* Test Item Value Reference Range Interpretation Comments Hematocrit (test code = 4544-3) 43.1 % 38.2-49.6 [facility] HospitalAutomated erythrocyte mean corpuscular djzoyn0665-71-90 13:40:00* Test Item Value Reference Range Interpretation Comments Mean Corpuscular Volume (test code = 787-2) 98.2 81-99 [facility] HospitalAutomated erythrocyte mean corpuscular hemoglobin (mass per erythrocyte)2019-12-02 13:40:00* Test Item Value Reference Range Interpretation Comments Mean Corpuscular Hemoglobin (test code = 785-6) 28.7 pg 28-32 [facility] HospitalAutomated erythrocyte mean corpuscular hemoglobin concentration measurement (mass/volume)2019-12-02 13:40:00* Test Item Value Reference Range Interpretation Comments Mean Corpuscular Hemoglobin Concent (test code = 786-4) 29.2 g/dL 31-35 [facility] HospitalRDW TwtFq-Voo2922-03-24 13:40:00* Test Item Value Reference Range Interpretation Comments Red Cell Distribution Width (test code = 52121-7) 13.4 % 11.7 -14.4 [facility] HospitalAutomated blood platelet count (count/volume)2019-12-02 13:40:00* Test Item Value Reference Range Interpretation Comments Platelet Count (test code = 777-3) 69 10*3/uL 140-360 [facility] HospitalAutomated blood segmented neutrophil count as percentage of total azzvoekirb7531-02-44 13:40:00* Test Item Value Reference Range Interpretation Comments Neutrophils (%) (Auto) (test code = 97534-3) 61.1 % 38.7-80.0 [facility] HospitalAutomated blood lymphocyte count as percentage ot total wdizjancib9948-30-67 13:40:00* Test Item Value Reference Range Interpretation Comments Lymphocytes (%) (Auto) (test code = 736-9) 28.7 % 18.0-39.1 [facility] HospitalAutomated blood monocyte count as percentage of total mvxlmlgcyi1203-98-05 13:40:00* Test Item Value Reference Range Interpretation Comments Monocytes (%) (Auto) (test code = 5905-5) 9.4 % 4.4-11.3 [facility] HospitalAutformerly [facility] hospitaled blood eosinophil count as percentage of total giueoatcxp8469-54-27 13:40:00* Test Item Value Reference Range Interpretation Comments Eosinophils (%) (Auto) (test code = 713-8) 0.2 % 0.0-6.0 [facility] HospitalAutomated blood basophil count as percentage of total cmflgxlidp8382-90-42 13:40:00* Test Item Value Reference Range Interpretation Comments Basophils (%) (Auto) (test code = 706-2) 0.2 % 0.0-1.0 [facility] HospitalFluoroscopic procedure less than one hour mgqugzkm4309-82-33 13:40:00* Test Item Value Reference Range Interpretation Comments IM GRANULOCYTES % (test code = IM GRANULOCYTES %) 0.4 % 0.0- 1.0 [facility] HospitalAutomated blood neutrophil count 2019-12-02 13:40:00* Test Item Value Reference Range Interpretation Comments Neutrophils # (Auto) (test code = 751-8) 3.2 2.1-6.9 [facility] HospitalBlood lymphocytes count (number/volume) 2019-12-02 13:40:00* Test Item Value Reference Range Interpretation Comments Lymphocytes # (Auto) (test code = 53908-1) 1.5 1.0-3.2 [facility] HospitalBlood monocytes automated count (number/volume)2019-12-02 13:40:00* Test Item Value Reference Range Interpretation Comments Monocytes # (Auto) (test code = 742-7) 0.5 0.2-0.8 [facility] HospitalAutomated blood eosinophil count 2019-12-02 13:40:00* Test Item Value Reference Range Interpretation Comments Eosinophils # (Auto) (test code = 711-2) 0.0 0.0-0.4 [facility] HospitalAutomated blood basophil count (count/volume)2019-12-02 13:40:00* Test Item Value Reference Range Interpretation Comments Basophils # (Auto) (test code = 704-7) 0.0 0.0-0.1 [facility] HospitalFluoroscopic procedure less than one hour oukptvbu8640-99-23 13:40:00* Test Item Value Reference Range Interpretation Comments Absolute Immature Granulocyte (auto (mabel t code = Absolute Immature Granulocyte (auto) 0.02 10*3/uL 0-0.1 [facility] HospitalProthrombin time (PT) in platelet poor plasma by coagulation xktbs8430-60-57 13:40:00* Test Item Value Reference Range Interpretation Comments Prothrombin Time (test code = 5902-2) 13.9 s 11.9-14.5 [facility] HospitalINR in Platelet poor plasma by Coagulation uumit5852-60-96 13:40:00* Test Item Value Reference Range Interpretation Comments Prothromb Time International Ratio (test code = 6301-6) 1.02 Oral Anticoagulant Therapy INR Values:1. Low Intensity Therapy 1.5 - 2.02 . Moderate Intensity Therapy 2.0 - 3.03. High Intensity Therapy(1) 2.5 - 3. 54. High Intensity Therapy(2) 3.0 - 4.05. Panic Value INR > 5.0 [facility] HospitalActivated partial thromboplastin time (aPTT) in platelet poor plasma by coagulation [id number] 13:40:00* Test Item Value Reference Range Interpretation Comments Activated Partial Thromboplast Time (test code = 51015-8) 33.3 s 23.8-35.5 [facility] HospitalUrine color vqzkzzuxnlmfm2955-77-09 13:40:00* Test Item Value Reference Range Interpretation Comments Urine Color (test code = 5778-6) STRAW YELLOW [facility] HospitalUrine ydanykz3286-87-94 13:40:00* Test Item Value Reference Range Interpretation Comments Urine Clarity (test code = 80582-9) SL CLOUDY [facility]AR [facility] by Test strip 2019-12-02 13:40:00* Test Item Value Reference Range Interpretation Comments Urine Specific [place] (test code = 5811-5) 1.020 1.010-1.02 5 [facility] HospitalUrine pH measurement by automated test [id number] 13:40:00* Test Item Value Reference Range Interpretation Comments Urine pH (test code = 32077-2) 5.5 5-7 [facility] HospitalUrine leukocyte esterase detection by ogvmdhtf6556-47-04 13:40:00* Test Item Value Reference Range Interpretation Comments Urine Leukocyte Esterase (test code = 5799-2) NEGATIVE NEGATIVE [facility] HospitalUrine nitrite daefyyaxp2547-72-03 13:40:00* Test Item Value Reference Range Interpretation Comments Urine Nitrite (test code = 13011-2) NEGATIVE NEGATIVE [facility] HospitalUrine protein measurement by test strip (mass/volume)2019-12-02 13:40:00* Test Item Value Reference Range Interpretation Comments Urine Protein (test code = 5804-0) 2+ NEGATIVE [facility] HospitalUrine glucose ctbuzyllf8002-34-42 13:40:00* Test Item Value Reference Range Interpretation Comments Urine Glucose (UA) (test code = 2349-9) NEGATIVE NEGATIVE [facility] HospitalUrine ketones detection by automated test ztqga9354-76-10 13:40:00* Test Item Value Reference Range Interpretation Comments Urine Ketones (test code = 81132-5) NEGATIVE NEGATIVE [facility] HospitalUrine urobilinogen measurement by test strip (mass/volume)2019-12-02 13:40:00* Test Item Value Reference Range Interpretation Comments Urine Urobilinogen (test code = 70556-7) 1 mg/dL 0.2-1 [facility] HospitalUrine total bilirubin measurement (mass/volume)2019-12-02 13:40:00* Test Item Value Reference Range Interpretation Comments Urine Bilirubin (test code = 1978-6) NEGATIVE NEGATIVE [facility] HospitalUrine erythrocytes nuugubnyn4563-00-72 13:40:00* Test Item Value Reference Range Interpretation Comments Urine Blood (test code = 66497-4) MODERATE NEGATIVE [facility] HospitalAutomated urine sediment leukocyte count by microscopy (number/high power field)2019-12-02 13:40:00* Test Item Value Reference Range Interpretation Comments Urine WBC (test code = 5821-4) NONE /[HPF] 0-5 [facility] HospitalErythrocytes detection in urine sediment by light wxeemwsocd2766-07-06 13:40:00* Test Item Value Reference Range Interpretation Comments Urine RBC (test code = 34059-3) 6-10 /[HPF] 0-5 [facility] HospitalBacteria detection in urine sediment by light dncuywxfpk2933-64-83 13:40:00* Test Item Value Reference Range Interpretation Comments Urine Bacteria (test code = 87642-6) MODERATE /[HPF] NONE [facility] HospitalEpithelial cells detection in urine sediment by light gvanyelohd4416-13-16 13:40:00* Test Item Value Reference Range Interpretation Comments Urine Epithelial Cells (test code = 00474-8) FEW /[LPF] NONE [facility] Hospitalerum or plasma sodium measurement (moles/volume)2019-12-02 13:40:00* Test Item Value Reference Range Interpretation Comments Sodium Level (test code = 2951-2) 160 mmol/L 136-145 [facility] Hospitalerum or plasma potassium measurement (moles/volume)2019-12-02 13:40:00* Test Item Value Reference Range Interpretation Comments Potassium Level (test code = 2823-3) 4.6 mmol/L 3.5-5.1 [facility] Hospitalerum or plasma chloride measurement (moles/volume)2019-12-02 13:40:00* Test Item Value Reference Range Interpretation Comments Chloride Level (test code = 2075-0) 121 mmol/L 98-107 [facility] Hospitalerum or plasma carbon dioxide, total measurement (moles/volume)2019-12-02 13:40:00* Test Item Value Reference Range Interpretation Comments Carbon Dioxide Level (test code = 2028-9) 29 mmol/L 22-29 [facility] Hospitalerum or plasma anion dks8892-72-55 13:40:00* Test Item Value Reference Range Interpretation Comments Anion Gap (test code = 48465-5) 14.6 mmol/L 8-16 [facility]erum or plasma urea nitrogen measurement (mass/volume)2019-12-02 13:40:00* Test Item Value Reference Range Interpretation Comments Blood Urea Nitrogen (test code = 3094-0) 34 mg/dL 7-26 [facility] Hospitalerum or plasma creatinine measurement (mass/volume)2019-12-02 13:40:00* Test Item Value Reference Range Interpretation Comments Creatinine (test code = 2160-0) 0.70 mg/dL 0.72-1.25 [facility] Hospitalerum or plasma urea nitrogen/creatinine mass dkncn3262-15-93 13:40:00* Test Item Value Reference Range Interpretation Comments BUN/Creatinine Ratio (test code = 3097-3) 49 6-25 [facility] HospitalEstimated glomerular filtration rate (GFR) xjznmrsjfwqol3249-71-85 13:40:00* Test Item Value Reference Range Interpretation Comments Estimat Glomerular Filtration Rate (test code = 724226570) > 60 mL/ min >60 Ranges were taken from the National Kidney Disease Education Program and the [facility] literature.Reference ranges:60 or greater: Uoznvc82-96 ( for 3 consecutive months): Chronic kidney disease 15 or less: Kidney failureMem[facility]ann [facility] HospitalGlucose npzimdgtlef7719-32-69 13:40:00* Test Item Value Reference Range Interpretation Comments Glucose Level (test code = DEL8138) 104 mg/dL 74-118 [facility] Hospitalerum or plasma calcium measurement (mass/volume)2019-12-02 13:40:00* Test Item Value Reference Range Interpretation Comments Calcium Level (test code = 37145-7) 8.6 mg/dL 8.4-10.2 [facility] Hospitalerum or plasma total bilirubin measurement (mass/volume)2019-12-02 13:40:00* Test Item Value Reference Range Interpretation Comments Total Bilirubin (test code = 1975-2) 0.4 mg/dL 0.2-1.2 [facility] HospitalFluoroscopic procedure less than one hour ybhvbdhu3265-05-08 13:40:00* Test Item Value Reference Range Interpretation Comments Aspartate Amino Transf (AST/SGOT) (test code = Aspartate Amino Transf (AST/SGOT)) 61 [IU]/L 5-34 [facility] Hospitalerum or plasma alanine aminotransferase measurement (enzymatic activity/volume)2019-12-02 13:40:00* Test Item Value Reference Range Interpretation Comments Alanine Aminotransferase (ALT/SGPT) (test code = 1742-6) 67 [IU]/L 0-55 [facility] Hospitalerum or plasma protein measurement (mass/volume)2019-12-02 13:40:00* Test Item Value Reference Range Interpretation Comments Total Protein (test code = 2885-2) 7.9 g/dL 6.5-8.1 [facility] Hospitalerum or plasma albumin measurement (mass/volume)2019-12-02 13:40:00* Test Item Value Reference Range Interpretation Comments Albumin (test code = 1751-7) 2.9 g/dL 3.5-5.0 [facility] HospitalPlasma globulin measurement (mass/volume) 2019-12-02 13:40:00* Test Item Value Reference Range Interpretation Comments Globulin (test code = 38726-8) 5.0 g/dL 2.3-3.5 [facility] Hospitalerum or plasma albumin/globulin mass rnjch6813-70-89 13:40:00* Test Item Value Reference Range Interpretation Comments Albumin/Globulin Ratio (test code = 1759-0) 0.6 0.8-2.0 [facility] Hospitalerum or plasma alkaline phosphatase measurement (enzymatic activity/volume)2019-12-02 13:40:00* Test Item Value Reference Range Interpretation Comments Alkaline Phosphatase (test code = 6768-6) 117 [IU]/L 40-150 [facility] Hospitalerum or plasma creatine kinase measurement (enzymatic activity/volume)2019-12-02 13:40:00* Test Item Value Reference Range Interpretation Comments Creatine Kinase (test code = 2157-6) 47 [IU]/L 30-200 [facility] Hospitalerum or plasma creatine kinase MB measurement (mass/volume)2019-12-02 13:40:00* Test Item Value Reference Range Interpretation Comments Creatine Kinase MB (test code = 78562-9) 0.60 ng/mL 0-5.0 [facility] HospitalTroponin I measurement by highly sensitive enzyme bfsmcurgirx9310-16-47 13:40:00* Test Item Value Reference Range Interpretation Comments Troponin I (test code = 59721-9) 0.002 ng/mL 0-0.300 [facility] HospitalFluoroscopic procedure less than one hour ontznkif6564-54-14 13:00:00* Test Item Value Reference Range Interpretation Comments Lactic Acid Level (test code = Lactic Acid Level) 1.7 0.5- 2.0 [facility] HospitalFluoroscopic procedure less than one hour xmnnpkay5323-55-79 13:00:00* Test Item Value Reference Range Interpretation Comments Lactic Acid Level (test code = Lactic Acid Level) 1.7 0.5- 2.0 [facility] HospitalBlood qskxgvc7618-48-10 13:00:00* Test Item Value Reference Range Interpretation Comments Blood Culture (test code = 06837461) NO GROWTH AFTER 5 DAYS, FINAL REPORT [facility] HospitalFluoroscopic procedure less than one hour yvazqxos6628-27-64 13:00:00* Test Item Value Reference Range Interpretation Comments Lactic Acid Level (test code = Lactic Acid Level) 1.7 0.5- 2.0 [facility] qxmesmd8888-47-84 13:00:00* Test Item Value Reference Range Interpretation Comments Blood Culture (test code = 66432068) NO GROWTH AFTER 5 DAYS, FINAL REPORT [facility] HospitalFluoroscopic procedure less than one hour fhkjlast1552-59-97 13:00:00* Test Item Value Reference Range Interpretation Comments Lactic Acid Level (test code = Lactic Acid Level) 1.7 0.5- 2.0 [facility] HospitalBlood ifaqyei1077-16-10 13:00:00* Test Item Value Reference Range Interpretation Comments Blood Culture (test code = 01884704) NO GROWTH AFTER 5 DAYS, FINAL REPORT [facility] HospitalBaileria urine fnxjapn1464-03-40 12:42:00* Test Item Value Reference Range Interpretation Comments Urine Culture (test code = 630-4) ENTEROCOCCUS [facility]ALIS [facility] urine uusfbjm1958-88-34 12:42:00* Test Item Value Reference Range Interpretation Comments Urine Culture (test code = 630-4) ENTEROCOCCUS FAECALIS [facility] urine tpcwrvv0194-92-11 12:42:00* Test Item Value Reference Range Interpretation Comments Urine Culture (test code = 630-4) ENTEROCOCCUS FAECALIS [facility] leukocytes automated count (number/volume)2019-12-02 12:40:00* Test Item Value Reference Range Interpretation Comments White Blood Count (test code = 6690-2) 5.19 4.8-10.8 [facility] erythrocytes automated count (number/volume)2019-12-02 12:40:00* Test Item Value Reference Range Interpretation Comments Red Blood Count (test code = 789-8) 4.39 4.3-5.7 [facility] hemoglobin measurement (moles/volume)2019-12-02 12:40:00* Test Item Value Reference Range Interpretation Comments Hemoglobin (test code = 33981-7) 12.6 14.0-18.0 [facility] HospitalAutomated blood hematocrit (volume fraction)2019-12-02 12:40:00* Test Item Value Reference Range Interpretation Comments Hematocrit (test code = 4544-3) 43.1 38.2-49.6 [facility] HospitalAutomated erythrocyte mean corpuscular jpvabs8860-39-64 12:40:00* Test Item Value Reference Range Interpretation Comments Mean Corpuscular Volume (test code = 787-2) 98.2 81-99 [facility] HospitalAutomated erythrocyte mean corpuscular hemoglobin (mass per erythrocyte)2019-12-02 12:40:00* Test Item Value Reference Range Interpretation Comments Mean Corpuscular Hemoglobin (test code = 785-6) 28.7 28-32 [facility] HospitalAutomated erythrocyte mean corpuscular hemoglobin concentration measurement (mass/volume)2019-12-02 12:40:00* Test Item Value Reference Range Interpretation Comments Mean Corpuscular Hemoglobin Concent (test code = 786-4) 29.2 31-35 [facility] HospitalRDW AlaUa-Uco7018-25-24 12:40:00* Test Item Value Reference Range Interpretation Comments Red Cell Distribution Width (test code = 48812-3) 13.4 11.7 -14.4 [facility] HospitalAutomated blood platelet count (count/volume)2019-12-02 12:40:00* Test Item Value Reference Range Interpretation Comments Platelet Count (test code = 777-3) 69 140-360 [facility] HospitalAutomated blood segmented neutrophil count as percentage of total hrwskalnlj8011-54-99 12:40:00* Test Item Value Reference Range Interpretation Comments Neutrophils (%) (Auto) (test code = 29273-3) 61.1 38.7-80.0 [facility] HospitalAutomated blood lymphocyte count as percentage ot total iqkypjdglw2547-25-31 12:40:00* Test Item Value Reference Range Interpretation Comments Lymphocytes (%) (Auto) (test code = 736-9) 28.7 18.0-39.1 [facility] HospitalAutomated blood monocyte count as percentage of total ahhwpwawcw6026-49-97 12:40:00* Test Item Value Reference Range Interpretation Comments Monocytes (%) (Auto) (test code = 5905-5) 9.4 4.4-11.3 [facility] HospitalAutomated blood eosinophil count as percentage of total yxwoebtbjb0422-25-27 12:40:00* Test Item Value Reference Range Interpretation Comments Eosinophils (%) (Auto) (test code = 713-8) 0.2 0.0-6.0 [facility] HospitalAutomated blood basophil count as percentage of total emsllbiegq3704-06-30 12:40:00* Test Item Value Reference Range Interpretation Comments Basophils (%) (Auto) (test code = 706-2) 0.2 0.0-1.0 [facility] HospitalFluoroscopic procedure less than one hour wtlfvqov6317-49-01 12:40:00* Test Item Value Reference Range Interpretation Comments IM GRANULOCYTES % (test code = IM GRANULOCYTES %) 0.4 0.0- 1.0 [facility] HospitalAutomated blood neutrophil count 2019-12-02 12:40:00* Test Item Value Reference Range Interpretation Comments Neutrophils # (Auto) (test code = 751-8) 3.2 2.1-6.9 [facility] HospitalBlood lymphocytes count (number/volume) 2019-12-02 12:40:00* Test Item Value Reference Range Interpretation Comments Lymphocytes # (Auto) (test code = 70590-4) 1.5 1.0-3.2 [facility] HospitalBlood monocytes automated count (number/volume)2019-12-02 12:40:00* Test Item Value Reference Range Interpretation Comments Monocytes # (Auto) (test code = 742-7) 0.5 0.2-0.8 [facility] HospitalAutomated blood eosinophil count 2019-12-02 12:40:00* Test Item Value Reference Range Interpretation Comments Eosinophils # (Auto) (test code = 711-2) 0.0 0.0-0.4 [facility] HospitalAutomated blood basophil count (count/volume)2019-12-02 12:40:00* Test Item Value Reference Range Interpretation Comments Basophils # (Auto) (test code = 704-7) 0.0 0.0-0.1 [facility] HospitalFluoroscopic procedure less than one hour rymsgloh5620-49-85 12:40:00* Test Item Value Reference Range Interpretation Comments Absolute Immature Granulocyte (auto (mabel t code = Absolute Immature Granulocyte (auto) 0.02 0-0.1 [facility] HospitalProthrombin time (PT) in platelet poor plasma by coagulation evmcf9918-61-22 12:40:00* Test Item Value Reference Range Interpretation Comments Prothrombin Time (test code = 5902-2) 13.9 11.9-14.5 [facility] HospitalINR in Platelet poor plasma by Coagulation tptpw7915-41-68 12:40:00* Test Item Value Reference Range Interpretation Comments Prothromb Time International Ratio (test code = 6301-6) 1.02 Oral Anticoagulant Therapy INR Values:1. Low Intensity Therapy 1.5 - 2.02 . Moderate Intensity Therapy 2.0 - 3.03. High Intensity Therapy(1) 2.5 - 3. 54. High Intensity Therapy(2) 3.0 - 4.05. Panic Value INR > 5.0 [facility] HospitalActivated partial thromboplastin time (aPTT) in platelet poor plasma by coagulation frgso2549-86-14 12:40:00* Test Item Value Reference Range Interpretation Comments Activated Partial Thromboplast Time (test code = 10250-1) 33.3 23.8-35.5 [facility] HospitalUrine color pnfmdnpzoxawh1711-17-74 12:40:00* Test Item Value Reference Range Interpretation Comments Urine Color (test code = 5778-6) STRAW YELLOW [facility] HospitalUrine fgdkppe5967-90-31 12:40:00* Test Item Value Reference Range Interpretation Comments Urine Clarity (test code = 03624-4) SL CLOUDY CLEAR [facility] Urine by Test strip 2019-12-02 12:40:00* Test Item Value Reference Range Interpretation Comments Urine Specific [place] (test code = 5811-5) 1.020 1.010-1.02 5 [facility] HospitalUrine pH measurement by automated test yzjby5684-55-88 12:40:00* Test Item Value Reference Range Interpretation Comments Urine pH (test code = 17438-6) 5.5 5-7 [facility] HospitalUrine leukocyte esterase detection by oavveccr6994-56-91 12:40:00* Test Item Value Reference Range Interpretation Comments Urine Leukocyte Esterase (test code = 5799-2) NEGATIVE NEGATIVE [facility] HospitalUrine nitrite kiqngbtpp7158-58-48 12:40:00* Test Item Value Reference Range Interpretation Comments Urine Nitrite (test code = 07550-5) NEGATIVE NEGATIVE [facility] HospitalUrine protein measurement by test strip (mass/volume)2019-12-02 12:40:00* Test Item Value Reference Range Interpretation Comments Urine Protein (test code = 5804-0) 2+ NEGATIVE [facility] HospitalUrine glucose lkqnddgkq4409-88-44 12:40:00* Test Item Value Reference Range Interpretation Comments Urine Glucose (UA) (test code = 2349-9) NEGATIVE NEGATIVE [facility] HospitalUrine ketones detection by automated test jputn7019-59-73 12:40:00* Test Item Value Reference Range Interpretation Comments Urine Ketones (test code = 55436-5) NEGATIVE NEGATIVE [facility] HospitalUrine urobilinogen measurement by test strip (mass/volume)2019-12-02 12:40:00* Test Item Value Reference Range Interpretation Comments Urine Urobilinogen (test code = 02131-7) 1 0.2-1 [facility] HospitalUrine total bilirubin measurement (mass/volume)2019-12-02 12:40:00* Test Item Value Reference Range Interpretation Comments Urine Bilirubin (test code = 1978-6) NEGATIVE NEGATIVE [facility] HospitalUrine erythrocytes kqlcdnqnv5961-00-69 12:40:00* Test Item Value Reference Range Interpretation Comments Urine Blood (test code = 24779-4) MODERATE NEGATIVE [facility] HospitalAutomated urine sediment leukocyte count by microscopy (number/high power field)2019-12-02 12:40:00* Test Item Value Reference Range Interpretation Comments Urine WBC (test code = 5821-4) NONE 0-5 [facility] HospitalErythrocytes detection in urine sediment by light fyjzwbhdch4108-49-91 12:40:00* Test Item Value Reference Range Interpretation Comments Urine RBC (test code = 40091-5) 6-10 0-5 [facility] HospitalBacteria detection in urine sediment by light mjnikygpxu9216-47-86 12:40:00* Test Item Value Reference Range Interpretation Comments Urine Bacteria (test code = 23671-0) MODERATE NONE [facility] HospitalEpithelial cells detection in urine sediment by light hkedofpnjr7685-80-91 12:40:00* Test Item Value Reference Range Interpretation Comments Urine Epithelial Cells (test code = 02902-2) FEW NONE [facility] Hospitalerum or plasma sodium measurement (moles/volume)2019-12-02 12:40:00* Test Item Value Reference Range Interpretation Comments Sodium Level (test code = 2951-2) 160 136-145 [facility] Hospitalerum or plasma potassium measurement (moles/volume)2019-12-02 12:40:00* Test Item Value Reference Range Interpretation Comments Potassium Level (test code = 2823-3) 4.6 3.5-5.1 [facility]er[facility] or plasma chloride measurement (moles/volume)2019-12-02 12:40:00* Test Item Value Reference Range Interpretation Comments Chloride Level (test code = 2075-0) 121 98-107 [facility] Hospitalerum or plasma carbon dioxide, total measurement (moles/volume)2019-12-02 12:40:00* Test Item Value Reference Range Interpretation Comments Carbon Dioxide Level (test code = 2028-9) 29 22-29 [facility] Hospitalerum or plasma anion xnl5373-83-36 12:40:00* Test Item Value Reference Range Interpretation Comments Anion Gap (test code = 68331-1) 14.6 8-16 [facility]er[facility] or plasma urea nitrogen measurement (mass/volume)2019-12-02 12:40:00* Test Item Value Reference Range Interpretation Comments Blood Urea Nitrogen (test code = 3094-0) 34 7-26 [facility] Hospitalerum or plasma creatinine measurement (mass/volume)2019-12-02 12:40:00* Test Item Value Reference Range Interpretation Comments Creatinine (test code = 2160-0) 0.70 0.72-1.25 [facility] Hospitalerum or plasma urea nitrogen/creatinine mass vxhjf6066-22-74 12:40:00* Test Item Value Reference Range Interpretation Comments BUN/Creatinine Ratio (test code = 3097-3) 49 6-25 [facility] HospitalEstimated glomerular filtration rate (GFR) jyxxghnveicgk6229-74-28 12:40:00* Test Item Value Reference Range Interpretation Comments Estimat Glomerular Filtration Rate (test code = 768780361) > 60 >60 Ranges were taken from the National Kidney Disease Education Program and the [facility] literature.Reference ranges:60 or greater: Smeacq79-04 ( for 3 consecutive months): Chronic kidney disease 15 or less: Kidney failureMemorial Hermann Southeast HospitalGlucose wmihatepbwz3918-84-36 12:40:00* Test Item Value Reference Range Interpretation Comments Glucose Level (test code = JPQ5791) 104 74-118 [facility] Hospitalerum or plasma calcium measurement (mass/volume)2019-12-02 12:40:00* Test Item Value Reference Range Interpretation Comments Calcium Level (test code = 34090-7) 8.6 8.4-10.2 [facility] Hospitalerum or plasma total bilirubin measurement (mass/volume)2019-12-02 12:40:00* Test Item Value Reference Range Interpretation Comments Total Bilirubin (test code = 1975-2) 0.4 0.2-1.2 [facility] HospitalFluoroscopic procedure less than one hour vvtclpwm2515-93-21 12:40:00* Test Item Value Reference Range Interpretation Comments Aspartate Amino Transf (AST/SGOT) (test code = Aspartate Amino Transf (AST/SGOT)) 61 5-34 [facility] Hospitalerum or plasma alanine aminotransferase measurement (enzymatic activity/volume)2019-12-02 12:40:00* Test Item Value Reference Range Interpretation Comments Alanine Aminotransferase (ALT/SGPT) (test code = 1742-6) 67 0-55 [facility] Hospitalerum or plasma protein measurement (mass/volume)2019-12-02 12:40:00* Test Item Value Reference Range Interpretation Comments Total Protein (test code = 2885-2) 7.9 6.5-8.1 [facility] Hospitalerum or plasma albumin measurement (mass/volume)2019-12-02 12:40:00* Test Item Value Reference Range Interpretation Comments Albumin (test code = 1751-7) 2.9 3.5-5.0 [facility] HospitalPlasma globulin measurement (mass/volume) 2019-12-02 12:40:00* Test Item Value Reference Range Interpretation Comments Globulin (test code = 12299-4) 5.0 2.3-3.5 [facility]erum or plasma albumin/globulin mass jrjcz2114-19-78 12:40:00* Test Item Value Reference Range Interpretation Comments Albumin/Globulin Ratio (test code = 1759-0) 0.6 0.8-2.0 [facility] Hospitalerum or plasma alkaline phosphatase measurement (enzymatic activity/volume)2019-12-02 12:40:00* Test Item Value Reference Range Interpretation Comments Alkaline Phosphatase (test code = 6768-6) 117 40-150 [facility] Hospitalerum or plasma creatine kinase measurement (enzymatic activity/volume)2019-12-02 12:40:00* Test Item Value Reference Range Interpretation Comments Creatine Kinase (test code = 2157-6) 47 30-200 [facility] Hospitalerum or plasma creatine kinase MB measurement (mass/volume)2019-12-02 12:40:00* Test Item Value Reference Range Interpretation Comments Creatine Kinase MB (test code = 31738-8) 0.60 0-5.0 [facility] HospitalTroponin I measurement by highly sensitive enzyme mzobmeavsov3047-73-91 12:40:00* Test Item Value Reference Range Interpretation Comments Troponin I (test code = 03062-6) 0.002 0-0.300 [facility] HospitalBlood leukocytes automated count (number/volume)2019-12-02 12:40:00* Test Item Value Reference Range Interpretation Comments White Blood Count (test code = 6690-2) 5.19 4.8-10.8 [facility] HospitalBlood erythrocytes automated count (number/volume)2019-12-02 12:40:00* Test Item Value Reference Range Interpretation Comments Red Blood Count (test code = 789-8) 4.39 4.3-5.7 [facility] HospitalBlood hemoglobin measurement (moles/volume)2019-12-02 12:40:00* Test Item Value Reference Range Interpretation Comments Hemoglobin (test code = 18622-5) 12.6 14.0-18.0 [facility] HospitalAutomated blood hematocrit (volume fraction)2019-12-02 12:40:00* Test Item Value Reference Range Interpretation Comments Hematocrit (test code = 4544-3) 43.1 38.2-49.6 [facility] HospitalAutomated erythrocyte mean corpuscular aqaozc5299-00-53 12:40:00* Test Item Value Reference Range Interpretation Comments Mean Corpuscular Volume (test code = 787-2) 98.2 81-99 [facility] HospitalAutomated erythrocyte mean corpuscular hemoglobin (mass per erythrocyte)2019-12-02 12:40:00* Test Item Value Reference Range Interpretation Comments Mean Corpuscular Hemoglobin (test code = 785-6) 28.7 28-32 [facility]Aut[facility] mean corpuscular hemoglobin concentration measurement (mass/volume)2019-12-02 12:40:00* Test Item Value Reference Range Interpretation Comments Mean Corpuscular Hemoglobin Concent (test code = 786-4) 29.2 31-35 [facility] HospitalRDW GvrBr-Ymr8129-70-24 12:40:00* Test Item Value Reference Range Interpretation Comments Red Cell Distribution Width (test code = 61434-1) 13.4 11.7 -14.4 [facility] HospitalAutformerly [facility] hospitaled blood platelet count (count/volume)2019-12-02 12:40:00* Test Item Value Reference Range Interpretation Comments Platelet Count (test code = 777-3) 69 140-360 [facility] HospitalAutomated blood segmented neutrophil count as percentage of total dlefucifqx4522-77-05 12:40:00* Test Item Value Reference Range Interpretation Comments Neutrophils (%) (Auto) (test code = 51931-8) 61.1 38.7-80.0 [facility] HospitalAutformerly [facility] hospitaled blood lymphocyte count as percentage ot total eonnjjnjpy3296-55-37 12:40:00* Test Item Value Reference Range Interpretation Comments Lymphocytes (%) (Auto) (test code = 736-9) 28.7 18.0-39.1 [facility] HospitalAutomated blood monocyte count as percentage of total vulcgmxjim9711-25-93 12:40:00* Test Item Value Reference Range Interpretation Comments Monocytes (%) (Auto) (test code = 5905-5) 9.4 4.4-11.3 [facility] HospitalAutomated blood eosinophil count as percentage of total zyiexlpcpk7999-73-48 12:40:00* Test Item Value Reference Range Interpretation Comments Eosinophils (%) (Auto) (test code = 713-8) 0.2 0.0-6.0 [facility] HospitalAutomated blood basophil count as percentage of total juuphjsyro9242-11-65 12:40:00* Test Item Value Reference Range Interpretation Comments Basophils (%) (Auto) (test code = 706-2) 0.2 0.0-1.0 [facility] HospitalFluoroscopic procedure less than one hour otaiufju1344-97-55 12:40:00* Test Item Value Reference Range Interpretation Comments IM GRANULOCYTES % (test code = IM GRANULOCYTES %) 0.4 0.0- 1.0 [facility] HospitalAutomated blood neutrophil count 2019-12-02 12:40:00* Test Item Value Reference Range Interpretation Comments Neutrophils # (Auto) (test code = 751-8) 3.2 2.1-6.9 [facility] HospitalBlood lymphocytes count (number/volume) 2019-12-02 12:40:00* Test Item Value Reference Range Interpretation Comments Lymphocytes # (Auto) (test code = 23552-7) 1.5 1.0-3.2 [facility] HospitalBlood monocytes automated count (number/volume)2019-12-02 12:40:00* Test Item Value Reference Range Interpretation Comments Monocytes # (Auto) (test code = 742-7) 0.5 0.2-0.8 [facility] HospitalAutomated blood eosinophil count 2019-12-02 12:40:00* Test Item Value Reference Range Interpretation Comments Eosinophils # (Auto) (test code = 711-2) 0.0 0.0-0.4 [facility] HospitalAutomated blood basophil count (count/volume)2019-12-02 12:40:00* Test Item Value Reference Range Interpretation Comments Basophils # (Auto) (test code = 704-7) 0.0 0.0-0.1 [facility] HospitalFluoroscopic procedure less than one hour qvqbnbqe6628-20-87 12:40:00* Test Item Value Reference Range Interpretation Comments Absolute Immature Granulocyte (auto (mabel t code = Absolute Immature Granulocyte (auto) 0.02 0-0.1 [facility] HospitalProthrombin time (PT) in platelet poor plasma by coagulation oxlxv9744-03-30 12:40:00* Test Item Value Reference Range Interpretation Comments Prothrombin Time (test code = 5902-2) 13.9 11.9-14.5 [facility] HospitalINR in Platelet poor plasma by Coagulation natnk0189-32-42 12:40:00* Test Item Value Reference Range Interpretation Comments Prothromb Time International Ratio (test code = 6301-6) 1.02 Oral Anticoagulant Therapy INR Values:1. Low Intensity Therapy 1.5 - 2.02 . Moderate Intensity Therapy 2.0 - 3.03. High Intensity Therapy(1) 2.5 - 3. 54. High Intensity Therapy(2) 3.0 - 4.05. Panic Value INR > 5.0 [facility] HospitalActivated partial thromboplastin time (aPTT) in platelet poor plasma by coagulation guiyw3753-19-11 12:40:00* Test Item Value Reference Range Interpretation Comments Activated Partial Thromboplast Time (test code = 29085-3) 33.3 23.8-35.5 [facility] HospitalUrine color rrsgmhdlzcore6602-42-63 12:40:00* Test Item Value Reference Range Interpretation Comments Urine Color (test code = 5778-6) STRAW YELLOW [facility] HospitalUrine kjkvjtm7638-62-44 12:40:00* Test Item Value Reference Range Interpretation Comments Urine Clarity (test code = 87705-2) SL CLOUDY CLEAR [facility] U[facility] by Test strip 2019-12-02 12:40:00* Test Item Value Reference Range Interpretation Comments Urine Specific [place] (test code = 5811-5) 1.020 1.010-1.02 5 [facility] HospitalUrine pH measurement by automated test auaah4826-25-39 12:40:00* Test Item Value Reference Range Interpretation Comments Urine pH (test code = 71298-3) 5.5 5-7 [facility] HospitalUrine leukocyte esterase detection by uoglltoh2685-02-53 12:40:00* Test Item Value Reference Range Interpretation Comments Urine Leukocyte Esterase (test code = 5799-2) NEGATIVE NEGATIVE [facility] HospitalUrine nitrite ulikkhxcl8397-37-41 12:40:00* Test Item Value Reference Range Interpretation Comments Urine Nitrite (test code = 69917-6) NEGATIVE NEGATIVE [facility] HospitalUrine protein measurement by test strip (mass/volume)2019-12-02 12:40:00* Test Item Value Reference Range Interpretation Comments Urine Protein (test code = 5804-0) 2+ NEGATIVE [facility] HospitalUrine glucose lyctdulkc2931-28-94 12:40:00* Test Item Value Reference Range Interpretation Comments Urine Glucose (UA) (test code = 2349-9) NEGATIVE NEGATIVE [facility] HospitalUrine ketones detection by automated test newwq4842-36-21 12:40:00* Test Item Value Reference Range Interpretation Comments Urine Ketones (test code = 50010-7) NEGATIVE NEGATIVE [facility] HospitalUrine urobilinogen measurement by test strip (mass/volume)2019-12-02 12:40:00* Test Item Value Reference Range Interpretation Comments Urine Urobilinogen (test code = 35706-6) 1 0.2-1 [facility] HospitalUrine total bilirubin measurement (mass/volume)2019-12-02 12:40:00* Test Item Value Reference Range Interpretation Comments Urine Bilirubin (test code = 1978-6) NEGATIVE NEGATIVE [facility] HospitalUrine erythrocytes ejdjyeikh1892-87-56 12:40:00* Test Item Value Reference Range Interpretation Comments Urine Blood (test code = 28321-8) MODERATE NEGATIVE [facility] HospitalAutomated urine sediment leukocyte count by microscopy (number/high power field)2019-12-02 12:40:00* Test Item Value Reference Range Interpretation Comments Urine WBC (test code = 5821-4) NONE 0-5 [facility] HospitalErythrocytes detection in urine sediment by light dkxnlgvnic6616-18-57 12:40:00* Test Item Value Reference Range Interpretation Comments Urine RBC (test code = 75670-1) 6-10 0-5 [facility] HospitalBacteria detection in urine sediment by light natlnrlssb4082-29-95 12:40:00* Test Item Value Reference Range Interpretation Comments Urine Bacteria (test code = 97707-1) MODERATE NONE [facility] HospitalEpithelial cells detection in urine sediment by light cntpxongaa5807-00-92 12:40:00* Test Item Value Reference Range Interpretation Comments Urine Epithelial Cells (test code = 28077-8) FEW NONE [facility] Hospitalerum or plasma sodium measurement (moles/volume)2019-12-02 12:40:00* Test Item Value Reference Range Interpretation Comments Sodium Level (test code = 2951-2) 160 136-145 [facility] Hospitalerum or plasma potassium measurement (moles/volume)2019-12-02 12:40:00* Test Item Value Reference Range Interpretation Comments Potassium Level (test code = 2823-3) 4.6 3.5-5.1 [facility] Hospitalerum or plasma chloride measurement (moles/volume)2019-12-02 12:40:00* Test Item Value Reference Range Interpretation Comments Chloride Level (test code = 2075-0) 121 98-107 [facility] Hospitalerum or plasma carbon dioxide, total measurement (moles/volume)2019-12-02 12:40:00* Test Item Value Reference Range Interpretation Comments Carbon Dioxide Level (test code = 2028-9) 29 22-29 [facility] Hospitalerum or plasma anion khu1885-09-49 12:40:00* Test Item Value Reference Range Interpretation Comments Anion Gap (test code = 31728-2) 14.6 8-16 [facility] Hospitalerum or plasma urea nitrogen measurement (mass/volume)2019-12-02 12:40:00* Test Item Value Reference Range Interpretation Comments Blood Urea Nitrogen (test code = 3094-0) 34 7-26 [facility] Hospitalerum or plasma creatinine measurement (mass/volume)2019-12-02 12:40:00* Test Item Value Reference Range Interpretation Comments Creatinine (test code = 2160-0) 0.70 0.72-1.25 [facility] Hospitalerum or plasma urea nitrogen/creatinine mass ncwpr2549-62-69 12:40:00* Test Item Value Reference Range Interpretation Comments BUN/Creatinine Ratio (test code = 3097-3) 49 6-25 [facility] HospitalEstimated glomerular filtration rate (GFR) xhmmfcbksyjan1508-56-54 12:40:00* Test Item Value Reference Range Interpretation Comments Estimat Glomerular Filtration Rate (test code = 936061131) > 60 >60 Ranges were taken from the National Kidney Disease Education Program and the [facility] literature.Reference ranges:60 or greater: Dfjsvb14-39 ( for 3 consecutive months): Chronic kidney disease 15 or less: Kidney failureMemorial Hermann Southeast HospitalGlucose twrpglrtqcn0108-11-51 12:40:00* Test Item Value Reference Range Interpretation Comments Glucose Level (test code = XQK8644) 104 74-118 [facility] Hospitalerum or plasma calcium measurement (mass/volume)2019-12-02 12:40:00* Test Item Value Reference Range Interpretation Comments Calcium Level (test code = 98458-2) 8.6 8.4-10.2 [facility] Hospitalerum or plasma total bilirubin measurement (mass/volume)2019-12-02 12:40:00* Test Item Value Reference Range Interpretation Comments Total Bilirubin (test code = 1975-2) 0.4 0.2-1.2 [facility] HospitalFluoroscopic procedure less than one hour kmkeegvb8132-94-51 12:40:00* Test Item Value Reference Range Interpretation Comments Aspartate Amino Transf (AST/SGOT) (test code = Aspartate Amino Transf (AST/SGOT)) 61 5-34 [facility] Hospitalerum or plasma alanine aminotransferase measurement (enzymatic activity/volume)2019-12-02 12:40:00* Test Item Value Reference Range Interpretation Comments Alanine Aminotransferase (ALT/SGPT) (test code = 1742-6) 67 0-55 [facility] Hospitalerum or plasma protein measurement (mass/volume)2019-12-02 12:40:00* Test Item Value Reference Range Interpretation Comments Total Protein (test code = 2885-2) 7.9 6.5-8.1 [facility] Hospitalerum or plasma albumin measurement (mass/volume)2019-12-02 12:40:00* Test Item Value Reference Range Interpretation Comments Albumin (test code = 1751-7) 2.9 3.5-5.0 [facility] HospitalPlasma globulin measurement (mass/volume) 2019-12-02 12:40:00* Test Item Value Reference Range Interpretation Comments Globulin (test code = 19934-8) 5.0 2.3-3.5 [facility] Hospitalerum or plasma albumin/globulin mass jqxws7012-42-55 12:40:00* Test Item Value Reference Range Interpretation Comments Albumin/Globulin Ratio (test code = 1759-0) 0.6 0.8-2.0 [facility] Hospitalerum or plasma alkaline phosphatase measurement (enzymatic activity/volume)2019-12-02 12:40:00* Test Item Value Reference Range Interpretation Comments Alkaline Phosphatase (test code = 6768-6) 117 40-150 [facility] Hospitalerum or plasma creatine kinase measurement (enzymatic activity/volume)2019-12-02 12:40:00* Test Item Value Reference Range Interpretation Comments Creatine Kinase (test code = 2157-6) 47 30-200 [facility] Hospitalerum or plasma creatine kinase MB measurement (mass/volume)2019-12-02 12:40:00* Test Item Value Reference Range Interpretation Comments Creatine Kinase MB (test code = 52259-4) 0.60 0-5.0 [facility] HospitalTroponin I measurement by highly sensitive enzyme yjndeilebta6056-86-16 12:40:00* Test Item Value Reference Range Interpretation Comments Troponin I (test code = 92685-6) 0.002 0-0.300 [facility] HospitalBlood leukocytes automated count (number/volume)2019-12-02 12:40:00* Test Item Value Reference Range Interpretation Comments White Blood Count (test code = 6690-2) 5.19 4.8-10.8 [facility] HospitalBlood erythrocytes automated count (number/volume)2019-12-02 12:40:00* Test Item Value Reference Range Interpretation Comments Red Blood Count (test code = 789-8) 4.39 4.3-5.7 [facility] hemoglobin measurement (moles/volume)2019-12-02 12:40:00* Test Item Value Reference Range Interpretation Comments Hemoglobin (test code = 18520-9) 12.6 14.0-18.0 [facility] HospitalAutomated blood hematocrit (volume fraction)2019-12-02 12:40:00* Test Item Value Reference Range Interpretation Comments Hematocrit (test code = 4544-3) 43.1 38.2-49.6 [facility] HospitalAutomated erythrocyte mean corpuscular gzfqng3809-87-64 12:40:00* Test Item Value Reference Range Interpretation Comments Mean Corpuscular Volume (test code = 787-2) 98.2 81-99 [facility] HospitalAutomated erythrocyte mean corpuscular hemoglobin (mass per erythrocyte)2019-12-02 12:40:00* Test Item Value Reference Range Interpretation Comments Mean Corpuscular Hemoglobin (test code = 785-6) 28.7 28-32 [facility] HospitalAutomated erythrocyte mean corpuscular hemoglobin concentration measurement (mass/volume)2019-12-02 12:40:00* Test Item Value Reference Range Interpretation Comments Mean Corpuscular Hemoglobin Concent (test code = 786-4) 29.2 31-35 [facility] HospitalRDW VrqUx-Mcc2965-52-24 12:40:00* Test Item Value Reference Range Interpretation Comments Red Cell Distribution Width (test code = 87327-1) 13.4 11.7 -14.4 [facility] HospitalAutomated blood platelet count (count/volume)2019-12-02 12:40:00* Test Item Value Reference Range Interpretation Comments Platelet Count (test code = 777-3) 69 140-360 [facility]ed [facility] neutrophil count as percentage of total nnuxotnoja4138-23-50 12:40:00* Test Item Value Reference Range Interpretation Comments Neutrophils (%) (Auto) (test code = 44124-8) 61.1 38.7-80.0 [facility] HospitalAutomated blood lymphocyte count as percentage ot total lvczyaqiig1297-10-48 12:40:00* Test Item Value Reference Range Interpretation Comments Lymphocytes (%) (Auto) (test code = 736-9) 28.7 18.0-39.1 [facility] HospitalAutomated blood monocyte count as percentage of total lzpmdixqow6946-38-85 12:40:00* Test Item Value Reference Range Interpretation Comments Monocytes (%) (Auto) (test code = 5905-5) 9.4 4.4-11.3 [facility] HospitalAutomated blood eosinophil count as percentage of total urddisbeqh5528-14-43 12:40:00* Test Item Value Reference Range Interpretation Comments Eosinophils (%) (Auto) (test code = 713-8) 0.2 0.0-6.0 [facility] HospitalAutomated blood basophil count as percentage of total biiuqwfbzq1369-37-17 12:40:00* Test Item Value Reference Range Interpretation Comments Basophils (%) (Auto) (test code = 706-2) 0.2 0.0-1.0 [facility] HospitalFluoroscopic procedure less than one hour nqwluyhl0529-22-23 12:40:00* Test Item Value Reference Range Interpretation Comments IM GRANULOCYTES % (test code = IM GRANULOCYTES %) 0.4 0.0- 1.0 [facility] HospitalAutomated blood neutrophil count 2019-12-02 12:40:00* Test Item Value Reference Range Interpretation Comments Neutrophils # (Auto) (test code = 751-8) 3.2 2.1-6.9 [facility] HospitalBlood lymphocytes count (number/volume) 2019-12-02 12:40:00* Test Item Value Reference Range Interpretation Comments Lymphocytes # (Auto) (test code = 82963-8) 1.5 1.0-3.2 [facility] HospitalBlood monocytes automated count (number/volume)2019-12-02 12:40:00* Test Item Value Reference Range Interpretation Comments Monocytes # (Auto) (test code = 742-7) 0.5 0.2-0.8 [facility] HospitalAutomated blood eosinophil count 2019-12-02 12:40:00* Test Item Value Reference Range Interpretation Comments Eosinophils # (Auto) (test code = 711-2) 0.0 0.0-0.4 [facility] HospitalAutomated blood basophil count (count/volume)2019-12-02 12:40:00* Test Item Value Reference Range Interpretation Comments Basophils # (Auto) (test code = 704-7) 0.0 0.0-0.1 [facility] HospitalFluoroscopic procedure less than one hour hbpnhqvz3221-58-32 12:40:00* Test Item Value Reference Range Interpretation Comments Absolute Immature Granulocyte (auto (mabel t code = Absolute Immature Granulocyte (auto) 0.02 0-0.1 [facility] HospitalProthrombin time (PT) in platelet poor plasma by coagulation ciics1520-03-58 12:40:00* Test Item Value Reference Range Interpretation Comments Prothrombin Time (test code = 5902-2) 13.9 11.9-14.5 [facility] HospitalINR in Platelet poor plasma by Coagulation ohznl3288-09-24 12:40:00* Test Item Value Reference Range Interpretation Comments Prothromb Time International Ratio (test code = 6301-6) 1.02 Oral Anticoagulant Therapy INR Values:1. Low Intensity Therapy 1.5 - 2.02 . Moderate Intensity Therapy 2.0 - 3.03. High Intensity Therapy(1) 2.5 - 3. 54. High Intensity Therapy(2) 3.0 - 4.05. Panic Value INR > 5.0 [facility] HospitalActivated partial thromboplastin time (aPTT) in platelet poor plasma by coagulation ocrfy0869-68-55 12:40:00* Test Item Value Reference Range Interpretation Comments Activated Partial Thromboplast Time (test code = 55273-9) 33.3 23.8-35.5 [facility] HospitalUrine color trycssoxnkqzy1244-98-78 12:40:00* Test Item Value Reference Range Interpretation Comments Urine Color (test code = 5778-6) STRAW YELLOW [facility] HospitalUrine fqywpil1827-89-49 12:40:00* Test Item Value Reference Range Interpretation Comments Urine Clarity (test code = 91429-4) SL CLOUDY CLEAR [facility]pecific gravity of Urine by Test strip 2019-12-02 12:40:00* Test Item Value Reference Range Interpretation Comments Urine Specific [place] (test code = 5811-5) 1.020 1.010-1.02 5 [facility] HospitalUrine pH measurement by automated test risiw1766-26-89 12:40:00* Test Item Value Reference Range Interpretation Comments Urine pH (test code = 30540-8) 5.5 5-7 [facility] HospitalUrine leukocyte esterase detection by zbeziuqn3404-92-42 12:40:00* Test Item Value Reference Range Interpretation Comments Urine Leukocyte Esterase (test code = 5799-2) NEGATIVE NEGATIVE [facility] HospitalUrine nitrite ougghrudp9123-18-33 12:40:00* Test Item Value Reference Range Interpretation Comments Urine Nitrite (test code = 21987-4) NEGATIVE NEGATIVE [facility] HospitalUrine protein measurement by test strip (mass/volume)2019-12-02 12:40:00* Test Item Value Reference Range Interpretation Comments Urine Protein (test code = 5804-0) 2+ NEGATIVE [facility] HospitalUrine glucose llvjruudy2545-27-15 12:40:00* Test Item Value Reference Range Interpretation Comments Urine Glucose (UA) (test code = 2349-9) NEGATIVE NEGATIVE [facility] HospitalUrine ketones detection by automated test bhxui6769-80-68 12:40:00* Test Item Value Reference Range Interpretation Comments Urine Ketones (test code = 69253-2) NEGATIVE NEGATIVE [facility] HospitalUrine urobilinogen measurement by test strip (mass/volume)2019-12-02 12:40:00* Test Item Value Reference Range Interpretation Comments Urine Urobilinogen (test code = 50353-9) 1 0.2-1 [facility] HospitalUrine total bilirubin measurement (mass/volume)2019-12-02 12:40:00* Test Item Value Reference Range Interpretation Comments Urine Bilirubin (test code = 1978-6) NEGATIVE NEGATIVE [facility] HospitalUrine erythrocytes nwepltwin4968-08-20 12:40:00* Test Item Value Reference Range Interpretation Comments Urine Blood (test code = 70235-5) MODERATE NEGATIVE [facility] HospitalAutomated urine sediment leukocyte count by microscopy (number/high power field)2019-12-02 12:40:00* Test Item Value Reference Range Interpretation Comments Urine WBC (test code = 5821-4) NONE 0-5 [facility] HospitalErythrocytes detection in urine sediment by light fyuaaogozv8315-18-26 12:40:00* Test Item Value Reference Range Interpretation Comments Urine RBC (test code = 94316-1) 6-10 0-5 [facility] HospitalBacteria detection in urine sediment by light jfvmzyqeor6694-49-32 12:40:00* Test Item Value Reference Range Interpretation Comments Urine Bacteria (test code = 92787-6) MODERATE NONE [facility] HospitalEpithelial cells detection in urine sediment by light mbsvrevyok3366-07-25 12:40:00* Test Item Value Reference Range Interpretation Comments Urine Epithelial Cells (test code = 52342-1) FEW NONE [facility]erum or plasma sodium measurement (moles/volume)2019-12-02 12:40:00* Test Item Value Reference Range Interpretation Comments Sodium Level (test code = 2951-2) 160 136-145 [facility] Hospitalerum or plasma potassium measurement (moles/volume)2019-12-02 12:40:00* Test Item Value Reference Range Interpretation Comments Potassium Level (test code = 2823-3) 4.6 3.5-5.1 [facility]erum or plasma chloride measurement (moles/volume)2019-12-02 12:40:00* Test Item Value Reference Range Interpretation Comments Chloride Level (test code = 2075-0) 121 98-107 [facility] Hospitalerum or plasma carbon dioxide, total measurement (moles/volume)2019-12-02 12:40:00* Test Item Value Reference Range Interpretation Comments Carbon Dioxide Level (test code = 2027-) 29 22-29 [facility] Hospitalerum or plasma anion ysl9535-53-85 12:40:00* Test Item Value Reference Range Interpretation Comments Anion Gap (test code = 25135-9) 14.6 8-16 [facility] urea nitrogen measurement (mass/volume)2019-12-02 12:40:00* Test Item Value Reference Range Interpretation Comments Blood Urea Nitrogen (test code = 3094-0) 34 7-26 [facility] plasma creatinine measurement (mass/volume)2019-12-02 12:40:00* Test Item Value Reference Range Interpretation Comments Creatinine (test code = 2160-0) 0.70 0.72-1.25 [facility]er[facility] or plasma urea nitrogen/creatinine mass hgxbn1127-64-39 12:40:00* Test Item Value Reference Range Interpretation Comments BUN/Creatinine Ratio (test code = 3097-3) 49 6-25 [facility] HospitalEstimated glomerular filtration rate (GFR) annmygxaefjgp4125-68-75 12:40:00* Test Item Value Reference Range Interpretation Comments Estimat Glomerular Filtration Rate (test code = 784498096) > 60 >60 Ranges were taken from the National Kidney Disease Education Program and the [facility] literature.Reference ranges:60 or greater: Wldqiq58-52 ( for 3 consecutive months): Chronic kidney disease 15 or less: Kidney failureMemorial Hermann Southeast HospitalGlucose qoogbiwoliq7776-89-07 12:40:00* Test Item Value Reference Range Interpretation Comments Glucose Level (test code = ZCN3164) 104 74-118 [facility] calcium measurement (mass/volume)2019-12-02 12:40:00* Test Item Value Reference Range Interpretation Comments Calcium Level (test code = 63996-5) 8.6 8.4-10.2 [facility] plasma total bilirubin measurement (mass/volume)2019-12-02 12:40:00* Test Item Value Reference Range Interpretation Comments Total Bilirubin (test code = 1975-2) 0.4 0.2-1.2 [facility] HospitalFluoroscopic procedure less than one hour gqzomcjo4923-39-51 12:40:00* Test Item Value Reference Range Interpretation Comments Aspartate Amino Transf (AST/SGOT) (test code = Aspartate Amino Transf (AST/SGOT)) 61 5-34 [facility]er[facility] or plasma alanine aminotransferase measurement (enzymatic activity/volume)2019-12-02 12:40:00* Test Item Value Reference Range Interpretation Comments Alanine Aminotransferase (ALT/SGPT) (test code = 1742-6) 67 0-55 [facility]er[facility] protein measurement (mass/volume)2019-12-02 12:40:00* Test Item Value Reference Range Interpretation Comments Total Protein (test code = 2885-2) 7.9 6.5-8.1 [facility]er[facility] or plasma albumin measurement (mass/volume)2019-12-02 12:40:00* Test Item Value Reference Range Interpretation Comments Albumin (test code = 1751-7) 2.9 3.5-5.0 [facility] HospitalPlasma globulin measurement (mass/volume) 2019-12-02 12:40:00* Test Item Value Reference Range Interpretation Comments Globulin (test code = 47257-6) 5.0 2.3-3.5 [facility]er[facility] plasma albumin/globulin mass civjy2914-81-11 12:40:00* Test Item Value Reference Range Interpretation Comments Albumin/Globulin Ratio (test code = 1759-0) 0.6 0.8-2.0 [facility]er[facility] or plasma alkaline phosphatase measurement (enzymatic activity/volume)2019-12-02 12:40:00* Test Item Value Reference Range Interpretation Comments Alkaline Phosphatase (test code = 6768-6) 117 40-150 [facility]er[facility] plasma creatine kinase measurement (enzymatic activity/volume)2019-12-02 12:40:00* Test Item Value Reference Range Interpretation Comments Creatine Kinase (test code = 2157-6) 47 30-200 [facility] Hospitalerum or plasma creatine kinase MB measurement (mass/volume)2019-12-02 12:40:00* Test Item Value Reference Range Interpretation Comments Creatine Kinase MB (test code = 50293-0) 0.60 0-5.0 [facility] HospitalTroponin I measurement by highly sensitive enzyme ozlojilsclu7072-54-51 12:40:00* Test Item Value Reference Range Interpretation Comments Troponin I (test code = 98759-8) 0.002 0-0.300 [facility] leukocytes automated count (number/volume)2019-12-02 12:40:00* Test Item Value Reference Range Interpretation Comments White Blood Count (test code = 6690-2) 5.19 4.8-10.8 [facility] erythrocytes automated count (number/volume)2019-12-02 12:40:00* Test Item Value Reference Range Interpretation Comments Red Blood Count (test code = 789-8) 4.39 4.3-5.7 [facility] hemoglobin measurement (moles/volume)2019-12-02 12:40:00* Test Item Value Reference Range Interpretation Comments Hemoglobin (test code = 26742-6) 12.6 14.0-18.0 [facility] HospitalAutomated blood hematocrit (volume fraction)2019-12-02 12:40:00* Test Item Value Reference Range Interpretation Comments Hematocrit (test code = 4544-3) 43.1 38.2-49.6 [facility] HospitalAutomated erythrocyte mean corpuscular mdqocq6003-32-69 12:40:00* Test Item Value Reference Range Interpretation Comments Mean Corpuscular Volume (test code = 787-2) 98.2 81-99 [facility] HospitalAutomated erythrocyte mean corpuscular hemoglobin (mass per erythrocyte)2019-12-02 12:40:00* Test Item Value Reference Range Interpretation Comments Mean Corpuscular Hemoglobin (test code = 785-6) 28.7 28-32 [facility] HospitalAutomated erythrocyte mean corpuscular hemoglobin concentration measurement (mass/volume)2019-12-02 12:40:00* Test Item Value Reference Range Interpretation Comments Mean Corpuscular Hemoglobin Concent (test code = 786-4) 29.2 31-35 [facility] HospitalRDW PlnTe-Ias3407-01-24 12:40:00* Test Item Value Reference Range Interpretation Comments Red Cell Distribution Width (test code = 15270-5) 13.4 11.7 -14.4 [facility] HospitalAutomated blood platelet count (count/volume)2019-12-02 12:40:00* Test Item Value Reference Range Interpretation Comments Platelet Count (test code = 777-3) 69 140-360 [facility] HospitalAutomated blood segmented neutrophil count as percentage of total qtoahxnqtn6842-24-28 12:40:00* Test Item Value Reference Range Interpretation Comments Neutrophils (%) (Auto) (test code = 82203-7) 61.1 38.7-80.0 [facility] HospitalAutformerly [facility] hospitaled blood lymphocyte count as percentage ot total fzxkmigvhd8376-68-40 12:40:00* Test Item Value Reference Range Interpretation Comments Lymphocytes (%) (Auto) (test code = 736-9) 28.7 18.0-39.1 [facility] HospitalAutomated blood monocyte count as percentage of total dbpcbhrcva2354-49-19 12:40:00* Test Item Value Reference Range Interpretation Comments Monocytes (%) (Auto) (test code = 5905-5) 9.4 4.4-11.3 [facility] eosinophil count as percentage of total tbtypverqe3340-60-83 12:40:00* Test Item Value Reference Range Interpretation Comments Eosinophils (%) (Auto) (test code = 713-8) 0.2 0.0-6.0 [facility] HospitalAutomated blood basophil count as percentage of total ebrqqxemfs9911-60-96 12:40:00* Test Item Value Reference Range Interpretation Comments Basophils (%) (Auto) (test code = 706-2) 0.2 0.0-1.0 [facility] HospitalFluoroscopic procedure less than one hour pnlrlejw3743-38-39 12:40:00* Test Item Value Reference Range Interpretation Comments IM GRANULOCYTES % (test code = IM GRANULOCYTES %) 0.4 0.0- 1.0 [facility] HospitalAutomated blood neutrophil count 2019-12-02 12:40:00* Test Item Value Reference Range Interpretation Comments Neutrophils # (Auto) (test code = 751-8) 3.2 2.1-6.9 [facility] HospitalBlood lymphocytes count (number/volume) 2019-12-02 12:40:00* Test Item Value Reference Range Interpretation Comments Lymphocytes # (Auto) (test code = 48630-7) 1.5 1.0-3.2 [facility] HospitalBlood monocytes automated count (number/volume)2019-12-02 12:40:00* Test Item Value Reference Range Interpretation Comments Monocytes # (Auto) (test code = 742-7) 0.5 0.2-0.8 [facility] HospitalAutomated blood eosinophil count 2019-12-02 12:40:00* Test Item Value Reference Range Interpretation Comments Eosinophils # (Auto) (test code = 711-2) 0.0 0.0-0.4 [facility] HospitalAutomated blood basophil count (count/volume)2019-12-02 12:40:00* Test Item Value Reference Range Interpretation Comments Basophils # (Auto) (test code = 704-7) 0.0 0.0-0.1 [facility] HospitalFluoroscopic procedure less than one hour rususpfo1762-52-65 12:40:00* Test Item Value Reference Range Interpretation Comments Absolute Immature Granulocyte (auto (mabel t code = Absolute Immature Granulocyte (auto) 0.02 0-0.1 [facility] HospitalProthrombin time (PT) in platelet poor plasma by coagulation uzkua5445-26-11 12:40:00* Test Item Value Reference Range Interpretation Comments Prothrombin Time (test code = 5902-2) 13.9 11.9-14.5 [facility] HospitalINR in Platelet poor plasma by Coagulation heuem6061-49-83 12:40:00* Test Item Value Reference Range Interpretation Comments Prothromb Time International Ratio (test code = 6301-6) 1.02 Oral Anticoagulant Therapy INR Values:1. Low Intensity Therapy 1.5 - 2.02 . Moderate Intensity Therapy 2.0 - 3.03. High Intensity Therapy(1) 2.5 - 3. 54. High Intensity Therapy(2) 3.0 - 4.05. Panic Value INR > 5.0 [facility] HospitalActivated partial thromboplastin time (aPTT) in platelet poor plasma by coagulation oltse4851-21-32 12:40:00* Test Item Value Reference Range Interpretation Comments Activated Partial Thromboplast Time (test code = 51022-6) 33.3 23.8-35.5 [facility] HospitalUrine color bdnttdyxlboyh0052-05-35 12:40:00* Test Item Value Reference Range Interpretation Comments Urine Color (test code = 5778-6) STRAW YELLOW [facility] HospitalUrine ufyvunh7659-16-92 12:40:00* Test Item Value Reference Range Interpretation Comments Urine Clarity (test code = 95415-6) SL CLOUDY CLEAR [facility] Hospitalpecific gravity of Urine by Test strip 2019-12-02 12:40:00* Test Item Value Reference Range Interpretation Comments Urine Specific [place] (test code = 5811-5) 1.020 1.010-1.02 5 [facility] HospitalUrine pH measurement by automated test vucjt3194-79-69 12:40:00* Test Item Value Reference Range Interpretation Comments Urine pH (test code = 06835-2) 5.5 5-7 [facility] HospitalUrine leukocyte esterase detection by kpetykms7931-20-48 12:40:00* Test Item Value Reference Range Interpretation Comments Urine Leukocyte Esterase (test code = 5799-2) NEGATIVE NEGATIVE [facility] HospitalUrine nitrite xwgytkpcn5026-41-21 12:40:00* Test Item Value Reference Range Interpretation Comments Urine Nitrite (test code = 32180-1) NEGATIVE NEGATIVE [facility] HospitalUrine protein measurement by test strip (mass/volume)2019-12-02 12:40:00* Test Item Value Reference Range Interpretation Comments Urine Protein (test code = 5804-0) 2+ NEGATIVE [facility] HospitalUrine glucose bpbenagfj0569-41-65 12:40:00* Test Item Value Reference Range Interpretation Comments Urine Glucose (UA) (test code = 2349-9) NEGATIVE NEGATIVE [facility] HospitalUrine ketones detection by automated test nbbsd9401-84-23 12:40:00* Test Item Value Reference Range Interpretation Comments Urine Ketones (test code = 08994-8) NEGATIVE NEGATIVE [facility] HospitalUrine urobilinogen measurement by test strip (mass/volume)2019-12-02 12:40:00* Test Item Value Reference Range Interpretation Comments Urine Urobilinogen (test code = 16218-8) 1 0.2-1 [facility] HospitalUrine total bilirubin measurement (mass/volume)2019-12-02 12:40:00* Test Item Value Reference Range Interpretation Comments Urine Bilirubin (test code = 1978-6) NEGATIVE NEGATIVE [facility] HospitalUrine erythrocytes bmasipbje1405-10-76 12:40:00* Test Item Value Reference Range Interpretation Comments Urine Blood (test code = 17090-5) MODERATE NEGATIVE [facility] HospitalAutomated urine sediment leukocyte count by microscopy (number/high power field)2019-12-02 12:40:00* Test Item Value Reference Range Interpretation Comments Urine WBC (test code = 5821-4) NONE 0-5 [facility] HospitalErythrocytes detection in urine sediment by light qhydjfrujh6145-77-12 12:40:00* Test Item Value Reference Range Interpretation Comments Urine RBC (test code = 05090-6) 6-10 0-5 [facility] HospitalBacteria detection in urine sediment by light dddwmqkgnx1992-53-49 12:40:00* Test Item Value Reference Range Interpretation Comments Urine Bacteria (test code = 56526-3) MODERATE NONE [facility] HospitalEpithelial cells detection in urine sediment by light ncxjdofawl8538-95-21 12:40:00* Test Item Value Reference Range Interpretation Comments Urine Epithelial Cells (test code = 63903-4) FEW NONE [facility]er[facility] plasma sodium measurement (moles/volume)2019-12-02 12:40:00* Test Item Value Reference Range Interpretation Comments Sodium Level (test code = 2951-2) 160 136-145 [facility]er[facility] or plasma potassium measurement (moles/volume)2019-12-02 12:40:00* Test Item Value Reference Range Interpretation Comments Potassium Level (test code = 2823-3) 4.6 3.5-5.1 [facility]er[facility] or plasma chloride measurement (moles/volume)2019-12-02 12:40:00* Test Item Value Reference Range Interpretation Comments Chloride Level (test code = 2075-0) 121 98-107 [facility]er[facility] or plasma carbon dioxide, total measurement (moles/volume)2019-12-02 12:40:00* Test Item Value Reference Range Interpretation Comments Carbon Dioxide Level (test code = 2028-9) 29 22-29 [facility]er[facility] or plasma anion kdf8680-21-82 12:40:00* Test Item Value Reference Range Interpretation Comments Anion Gap (test code = 56271-3) 14.6 8-16 [facility]er[facility] or plasma urea nitrogen measurement (mass/volume)2019-12-02 12:40:00* Test Item Value Reference Range Interpretation Comments Blood Urea Nitrogen (test code = 3094-0) 34 7-26 [facility]er[facility] or plasma creatinine measurement (mass/volume)2019-12-02 12:40:00* Test Item Value Reference Range Interpretation Comments Creatinine (test code = 2160-0) 0.70 0.72-1.25 [facility]erum or plasma urea nitrogen/creatinine mass hwryw5565-41-64 12:40:00* Test Item Value Reference Range Interpretation Comments BUN/Creatinine Ratio (test code = 3097-3) 49 6-25 [facility] HospitalEstimated glomerular filtration rate (GFR) xxnexotlibxog6125-16-13 12:40:00* Test Item Value Reference Range Interpretation Comments Estimat Glomerular Filtration Rate (test code = 217262137) > 60 >60 Ranges were taken from the National Kidney Disease Education Program and the [facility] literature.Reference ranges:60 or greater: Ehhhwl31-69 ( for 3 consecutive months): Chronic kidney disease 15 or less: Kidney failureMemorial Hermann Southeast HospitalGlucose gfijxlxuxcd2157-34-91 12:40:00* Test Item Value Reference Range Interpretation Comments Glucose Level (test code = RKS0860) 104 74-118 [facility]er[facility] or plasma calcium measurement (mass/volume)2019-12-02 12:40:00* Test Item Value Reference Range Interpretation Comments Calcium Level (test code = 31506-2) 8.6 8.4-10.2 [facility]er[facility] or plasma total bilirubin measurement (mass/volume)2019-12-02 12:40:00* Test Item Value Reference Range Interpretation Comments Total Bilirubin (test code = 1975-2) 0.4 0.2-1.2 [facility] HospitalFluoroscopic procedure less than one hour emvjrmwj5599-41-46 12:40:00* Test Item Value Reference Range Interpretation Comments Aspartate Amino Transf (AST/SGOT) (test code = Aspartate Amino Transf (AST/SGOT)) 61 5-34 [facility] Hospitalerum or plasma alanine aminotransferase measurement (enzymatic activity/volume)2019-12-02 12:40:00* Test Item Value Reference Range Interpretation Comments Alanine Aminotransferase (ALT/SGPT) (test code = 1742-6) 67 0-55 [facility] Hospitalerum or plasma protein measurement (mass/volume)2019-12-02 12:40:00* Test Item Value Reference Range Interpretation Comments Total Protein (test code = 2885-2) 7.9 6.5-8.1 [facility] Hospitalerum or plasma albumin measurement (mass/volume)2019-12-02 12:40:00* Test Item Value Reference Range Interpretation Comments Albumin (test code = 1751-7) 2.9 3.5-5.0 [facility] HospitalPlasma globulin measurement (mass/volume) 2019-12-02 12:40:00* Test Item Value Reference Range Interpretation Comments Globulin (test code = 70431-5) 5.0 2.3-3.5 [facility]er[facility] or plasma albumin/globulin mass ugupz8259-15-72 12:40:00* Test Item Value Reference Range Interpretation Comments Albumin/Globulin Ratio (test code = 1759-0) 0.6 0.8-2.0 [facility]erum or plasma alkaline phosphatase measurement (enzymatic activity/volume)2019-12-02 12:40:00* Test Item Value Reference Range Interpretation Comments Alkaline Phosphatase (test code = 6768-6) 117 40-150 [facility]erum or plasma creatine kinase measurement (enzymatic activity/volume)2019-12-02 12:40:00* Test Item Value Reference Range Interpretation Comments Creatine Kinase (test code = 2157-6) 47 30-200 [facility] Hospitalerum or plasma creatine kinase MB measurement (mass/volume)2019-12-02 12:40:00* Test Item Value Reference Range Interpretation Comments Creatine Kinase MB (test code = 90725-8) 0.60 0-5.0 [facility] HospitalTroponin I measurement by highly sensitive enzyme yzjvsskmoip6472-87-77 12:40:00* Test Item Value Reference Range Interpretation Comments Troponin I (test code = 43919-0) 0.002 0-0.300 [facility]- XR ABDOMEN AP 1 [id number] 02:35:00 FAX: Cr Regan MD [phone] [place]: St: REG Name: VANESSA ANDREA [facility] : [birth year] Age/S: 44/M [address] [facility] Unit #: [id number] Loc: [place] [address] Phys: Cr Regan MD Acct: [id number] Dis Date: Status: REG ER PHONE #: [phone] Exam Date: 11/24/2019 0150 FAX #: [phone] Reason: g tube replacement EXAMS: CPT CODE: [id number] XR ABDOMEN AP 1 V 08983 Abdomen one view with contrast inj ection [...] [place] M.D. CC: Cr Regan MD Technologist: Lnua Edmondson Trnscrd Date/Time/By: 11/24/2019 (023) : By: [email or web address] Orig P rint D/T: S: 11/24/2019 (0238) PAGE 1 Signed Report BASIC METABOLIC [id number] 06:58:00* Test Item Value Reference Range Interpretation [...] CA) 9.1 mg/dL 8.5-10.1 N BASIC METABOLIC [id number] 06:53:00* Test Item Value Reference Range Interpretation [...] code = CA) mg/dL 8.5-10.1 BASIC METABOLIC RGHJE0576-41-09 08:41:00* Test Item Value Reference Range Interpretation [...] mg/dL 8.5-10.1 N REFUSED LABS NOTIFIED NURSE [id number].YOLANDA.DB2 10/30/2000464936QILEH METABOLIC PANEL 2019-10-31 08:23:00* Test Item Value [...] CA) mg/dL 8.5-10.1 REFUSED LABS NOTIFIED NURSE [id number] B-TYPE NATRIURETIC DDOVLPP3498-05-23 08:20:00* Test Item Value Reference Range Interpretation Comments B-TYPE NATRIURETIC PEPTIDE (test code = BNP) 33.00 pgram/mL 0-100 N PROTHROMBIN [id number] 08:15:00* Test Item Value Reference Range Interpretation [...] valves (2.5-3.5) PT REFUSED LABS NOTIFIED NURSE [id number] IS PATIENT ON ANTICO AGULANTS? NCOMMENTS TO BLOCK SEALER: NEED FOR SURGERY 10/31/19ROMBOPLASTIN TIME PMYCDLX0554-22-15 08:15:00* Test Item Value Reference Range Interpretation Comments THROMBOPLASTIN TIME PARTIAL (test code = PTT) 34.4 seconds 23.0-37. 0 N PT REFUSED LABS NOTIFIED NURSE [id number].YOLANDA.DB2 10/30/200053IS PATIENT ON ANTICO AGULANTS? NCOMMENTS TO BLOCK SEALER: NEED FOR SURGERY 10/31/19CBC W/AUTO DIFF 2019-10-31 [...] 0.0-0.1 N PT REFUSED LABS NOTIFIED NURSE [id number].YOLANDA.DB2 10/30/200054CBC W/AUTO DIFF 2019-10-30 07:36:00* Test Item [...] = MDIFF) NO, ONLY SCAN NEEDED DIFFERENTIAL [id number] 07:36:00* Test Item Value Reference Range Interpretation Comments STAIN ACCEPTABILITY (test code = STN ACCEPTABLE) STAIN ACCEPTABLE PLATELET ESTIMATE (test code = PLTEST) DECREASED PLATELET MORPHOLOGY (test code = PLTMORPH) SIZE VARIABLE COMPREHENSIVE METABOLIC [id number] 07:31:00* Test Item Value Reference Range Interpretation [...] due to change in reagent. COMPREHENSIVE METABOLIC [id number] 07:03:00* Test Item Value Reference Range Interpretation [...] code = ALKP) IUnit/L 45-117 CBC W/AUTO [id number] 06:47:00* Test Item Value Reference Range Interpretation [...] = MDIFF) NO, ONLY SCAN NEEDED DIFFERENTIAL [id number] 06:47:00* Test Item Value Reference Range Interpretation Comments STAIN ACCEPTABILITY (test code = STN ACCEPTABLE) CABOT RINGS (test code = CAB) MORPHOLOGY COMMENT (test code = MOC) PLATELET ESTIMATE (test code = PLTEST) PLATELET MORPHOLOGY (test code = PLTMORPH) CBC W/AUTO [id number] 06:47:00* Test Item Value Reference Range Interpretation [...] = MDIFF) NO, ONLY SCAN NEEDED DIFFERENTIAL [id number] 06:47:00* Test Item Value Reference Range Interpretation Comments STAIN ACCEPTABILITY (test code = STN ACCEPTABLE) MORPHOLOGY COMMENT (test code = MOC) PLATELET ESTIMATE (test code = PLTEST) PLATELET MORPHOLOGY (test code = PLTMORPH) CBC W/AUTO [id number] 06:46:00* Test Item Value Reference Range Interpretation [...] = MDIFF) NO, ONLY SCAN NEEDED DIFFERENTIAL [id number] 06:46:00* Test Item Value Reference Range Interpretation Comments STAIN ACCEPTABILITY (test code = STN ACCEPTABLE) CABOT RINGS (test code = CAB) MORPHOLOGY COMMENT (test code = MOC) PLATELET ESTIMATE (test code = PLTEST) PLATELET MORPHOLOGY (test code = PLTMORPH) CBC W/AUTO [id number] 06:46:00* Test Item Value Reference Range Interpretation [...] = MDIFF) NO, ONLY SCAN NEEDED DIFFERENTIAL [id number] 06:46:00* Test Item Value Reference Range Interpretation Comments STAIN ACCEPTABILITY (test code = STN ACCEPTABLE) CABOT RINGS (test code = CAB) MORPHOLOGY COMMENT (test code = MOC) PLATELET ESTIMATE (test code = PLTEST) PLATELET MORPHOLOGY (test code = PLTMORPH) BASIC METABOLIC [id number] 06:02:00* Test Item Value Reference Range Interpretation [...] CA) 9.2 mg/dL 8.5-10.1 N BASIC METABOLIC [id number] 05:56:00* Test Item Value Reference Range Interpretation [...] = CA) mg/dL 8.5-10.1 Coronavirus 2019 nCoV [id number] 10:36:00* Test Item Value Reference Range Interpretation Comments Coronavirus 2019 nCoV Bedside (test code = COVNONPUIBED) Negative PROTHROMBIN [id number] 10:29:00* Test Item Value Reference Range Interpretation [...] (2.5-3.5) IS PATIENT ON ANTICOAGULANTS? NTHROMBOPLASTIN TIME [id number] 10:29:00* Test Item Value Reference Range Interpretation Comments THROMBOPLASTIN TIME PARTIAL (test code = PTT) 33.6 seconds 23.0-37. 0 N IS PATIENT ON ANTICOAGULANTS? NCOMPREHENSIVE METABOLIC [id number] 10:17:00 * Test Item Value Reference Range [...] due to change in reagent. CBC W/AUTO [id number] 09:43:00* Test Item Value Reference Range Interpretation [...] DIFF REQUIRED (test code = MDIFF) NO [id number] 20:41:00* Test Item Value Reference Range Interpretation Comments GLUBED (test code = GLUBED) 106 mg/dL 74-106 N Performed by certified foam machine operator at [facility] ABDOMEN-1VIEW (KUB)2019-10-13 10:47:00 [facility] [address] [place] [address] Patient Name: VANESSA KHOURY MR #: [id number] : 1975 Age/Sex: 44/M Req #: [id number] Adm Physician: Ordered by: GISELA LAYNE DO Report #: [id number] Location: ER Room/Bed: Procedure: [id number] DX/ABDOMEN-1V IEW (KUB) Exam Date: 10/13/19 Exam Time: 919 REPORT STATUS: Signed EXAM: ABDOMEN-1 VIEW (KUB) DATE: 10/13/2019 9:46 AM INDICATION: Gastrostomy replacemen t COMPARISON: None FINDINGS: Single AP view of the abdomen was obt ained after the administration of Gastrografin via the indwelling gastrostomy catheter. A site controller image was not obtained. There is contrast [...] on 10/13/2019 10:49 AM Dictated By: JUNIOR العراقي ically Signed By: JUNIOR HUOSER MD on 10/13/191048 Transcribed By: SARAH on 0 10/13/191048 COPY TO: GISELA LAYNE DO - CONT INJ GS/ DU/ JJ/ [id number] 09:47:00 FAX: Marcelina Younger DO [place]: St: REG Name: VANESSA ANDREA [facility] : [birth year] Age/S: 44/M [address] [facility] Unit #: [id number] Loc: [place] [address] Phys: Marcelina Younger DO Acct: [id number] Dis Date: Status: REG ER PHONE #: [phone] Exam Date: 10/09/2019914 FAX #: [phone] Reason: peg tube replacement EXAMS: CPT CODE: [id number] CONT INJ GS/ DU/ JJ/ G G 69363 HISTORY: PEG tube placement. COMPARISON: CT scan from September 10, 2019. Location: . Web Master view of the abdomen demonstrating gastrostomy tube [...] Trnscrd Date/Time/By: 10/09/2019 (0947) : By: yamile MENDEZ4 Orig Print D/T: S: 10/09/2019 (0951) P AGE 1 Signed Report BASIC METABOLIC [id number] 05:25:00* Test Item Value Reference Range Interpretation [...] CA) 9.0 mg/dL 8.5-10.1 N BASIC METABOLIC [id number] 05:17:00* Test Item Value Reference Range Interpretation [...] code = CA) mg/dL 8.5-10.1 BASIC METABOLIC [id number] 14:23:00* Test Item Value Reference Range Interpretation [...] CA) 8.8 mg/dL 8.5-10.1 N CBC W/AUTO [id number] 14:20:00* Test Item Value Reference Range Interpretation [...] NRBC#) 0.00 K/mm3 0.0-0.1 N BASIC METABOLIC [id number] 14:20:00* Test Item Value Reference Range Interpretation [...] code = CA) 8.8 mg/dL 8.5-10.1 N [id number] 18:04:00* Test Item Value Reference Range Interpretation Comments GLUBED (test code = GLUBED) 95 mg/dL 74-106 N Performed by certified foam machine operator at [facility] NUUINJ5974-88-57 07:58:00* Test Item Value Reference Range Interpretation Comments GLUBED (test code = GLUBED) 99 mg/dL 74-106 N Performed by certified foam machine operator at [facility] SRIBIX4487-31-95 21:01:00* Test Item Value Reference Range Interpretation Comments GLUBED (test code = GLUBED) 105 mg/dL 74-106 N Performed by certified foam machine operator at [facility] CenterNotified Nurse~ Coronavirus 2019 nCoV Eumnlpz1811-60-08 11:47:00* Test Item Value Reference Range Interpretation Comments Coronavirus 2019 nCoV Bedside (test code = COVNONPUIBED) Negative Emergent procedure? YESBASIC METABOLIC [id number] 07:11:00* Test Item Value Reference Range Interpretation [...] CA) 9.5 mg/dL 8.5-10.1 N BASIC METABOLIC [id number] 06:51:00* Test Item Value Reference Range Interpretation [...] code = CA) mg/dL 8.5-10.1 CBC W/AUTO [id number] 06:33:00* Test Item Value Reference Range Interpretation [...] = MDIFF) NO - CT ABD PELVIS W/[id number] 17:10:00 Name: VANESSA KHOURY [facility] : 1975 Age/S: 44 / M [address] [facility] Unit #: [id number] Loc: [place] [address] Phys: Virgil Montero MD Acct: [id number] Dis Date: Status: REG ER PHONE #: [phone] Exam Date: 09/10/2019 5356 FAX #: [phone] Reason: Vomiting after PEG tube replacement EXAMS: CPT CODE: [id number] CT ABD PELVIS W/CONT 79390 HISTORY: Vomiting after PEG tube replacement. COMPARISON: [...] Signed Report (CON TINUED) Name: VANESSA KHOURY [facility] : 1975 Age/S: 44 / M [address] [facility] Unit #: [id number] [place] [address] Phys: Virgil Velasquez MD Acct: [id number] Dis Date: Status: REG ER PH ONE #: [phone] Exam Date: 09/10/2019 1655 FAX #: Reason: Vomiting after PEG tube replacement EXA MS: CPT CODE: [id number] CT AB D PELVIS W/CONT 86076 <Continued> Prostate is not enlarged. No pelvic [...] (171) t.SDR.TH4 Orig Print D/T: S: 09/10/2019 (0327) PAGE 2 Signed Report BASIC METABOLIC [id number] 15:56:00* Test Item Value Reference Range Interpretation [...] CA) 10.6 mg/dL 8.5-10.1 H HEPATIC FUNCTION [id number] 15:56:00* Test Item Value Reference Range Interpretation [...] reference range due to change in reagent. [id number] 15:56:00* Test Item Value Reference Range Interpretation Comments LIPASE (test code = LIP) 63 U/L 73.0-393.0 L BASIC METABOLIC [id number] 15:48:00* Test Item Value Reference Range Interpretation [...] code = CA) mg/dL 8.5-10.1 HEPATIC FUNCTION [id number] 15:48:00* Test Item Value Reference Range Interpretation [...] TOTAL (test code = ALKP) IUnit/L 45-117 [id number] 15:48:00* Test Item Value Reference Range Interpretation Comments LIPASE (test code = LIP) U/L 73.0-393.0 CBC W/O [id number] 15:37:00* Test Item Value Reference Range Interpretation [...] MPV) 12.7 fL 6.7-11.0 H CBC W/O [id number] 15:36:00* Test Item Value Reference Range Interpretation [...] 6.7-11.0 - CONT INJ GS/ DU/ JJ/ [id number] 09:56:00 FAX: Virgil Montero MD [place]: St: REG Name: VANESSA ANDREA [facility] : [birth year] Age/S: 44/M [address] [facility] Unit #: [id number] Loc: [place] [address] Phys: Virgil Montero MD Acct: [id number] Dis Date: Status: REG ER PHONE #: [phone] Exam Date: 09/10/2019 09 FAX #: [phone] Reason: peg tube replacement EXAMS: CPT CODE: [id number] CONT INJ GS/ DU/ JJ/ G G 98340 EXAM: KUB and evaluation of gastro stomy [...] Technologist: ZENA GRAMAJO RT(R) Trnscrd Date/Time/By: 09/10/2019 (0956) : By: Franci Orig Print D/T: S: 09/10/2019 (2802) PAGE 1 Signed Report Blood Culture 2019-08-18 01:37:00* Test Item Value Reference Range Interpretation Comments Blood Culture (test code = 88512518) NO GROWTH AFTER 5 DAYS, FINAL REPORT [facility] (PCR)2019-08-16 10:36:00* Test Item Value Reference Range Interpretation Comments Chlamydia pneumoniae DNA (PCR) (test code = Chlamydia pneumoniae DNA (PCR)) NOT DETECTED NOT DETECT [facility] HospitalInfluenza Type A (RT-PCR)2019-08-16 10:36:00* Test Item Value Reference Range Interpretation Comments Influenza Type A (RT-PCR) (test code = 780826018) NOT DETECTED NOT DETECT [facility] (PCR)2019-08-16 10:36:00* Test Item Value Reference Range Interpretation Comments Mycoplasma pneumoniae (PCR) (test code = Mycoplasma pn eumoniae (PCR)) NOT DETECTED NOT DETECT [facility] HospitalInfluenza Type B (RT-PCR)2019-08-16 10:36:00* Test Item Value Reference Range Interpretation Comments Influenza Type B (RT-PCR) (test code = 888696409) NOT DETECTED NOT DETECT [facility] CenterRespiratory Syncytial Virus (PCR) 2019-08-16 10:36:00* Test Item Value Reference Range Interpretation Comments Respiratory Syncytial Virus (PCR) (test code = 308555464) NO T DETECTED NOT DETECT [facility] CenterBordetella pertussis DNA (PCR)2019-08-16 10:36:00* Test Item Value Reference Range Interpretation Comments Bordetella pertussis DNA (PCR) (test code = 562978939) NOT DETEC [place] NOT DETECT [facility] CenterParainfluenza Type 1 (PCR)2019-08-16 10:36:00* Test Item Value Reference Range Interpretation Comments Parainfluenza Type 1 (PCR) (test code = 504305743) NOT DETECTED NOT DETECT [facility] CenterParainfluenza Type 2 (PCR)2019-08-16 10:36:00* Test Item Value Reference Range Interpretation Comments Parainfluenza Type 2 (PCR) (test code = 260873168) NOT DETECTED NOT DETECT [facility] HospitalParainfluenza Type 3 (PCR)2019-08-16 10:36:00* Test Item Value Reference Range Interpretation Comments Parainfluenza Type 3 (PCR) (test code = 839974207) NOT DETECTED NOT DETECT [facility] 4 (PCR)2019-08-16 10:36:00* Test Item Value Reference Range Interpretation Comments Parainfluenza Type 4 (PCR) (test code = Parainfluenza Type 4 (PCR)) NOT DETECTED NOT DETECT [facility] HospitalRhinovirus (PCR)2019-08-16 10:36:00* Test Item Value Reference Range Interpretation Comments Rhinovirus (PCR) (test code = 653924915) NOT DETECTED NOT DETECT [facility] Metapneumovirus (PCR)2019-08-16 10:36:00* Test Item Value Reference Range Interpretation Comments Human Metapneumovirus (PCR) (test code = 123636915) NOT DETECTED NO T DETECT [facility] HospitalAdenovirus (PCR)2019-08-16 10:36:00* Test Item Value Reference Range Interpretation Comments Adenovirus (PCR) (test code = 019969862) NOT DETECTED NOT DETECT [facility] HospitalCoronavirus Type HKU1 (PCR)2019-08-16 10:36:00* Test Item Value Reference Range Interpretation Comments Coronavirus Type HKU1 (PCR) (test code = Coronavirus T ype HKU1 (PCR)) NOT DETECTED NOT DETECT [facility] HospitalCoronavirus Type NL63 (PCR)2019-08-16 10:36:00* Test Item Value Reference Range Interpretation Comments Coronavirus Type NL63 (PCR) (test code = Coronavirus T ype NL63 (PCR)) NOT DETECTED NOT DETECT [facility] HospitalCoronavirus Type OC43 (PCR)2019-08-16 10:36:00* Test Item Value Reference Range Interpretation Comments Coronavirus Type OC43 (PCR) (test code = Coronavirus T ype OC43 (PCR)) NOT DETECTED NOT DETECT [facility] HospitalCoronavirus Type 229E (PCR)2019-08-16 10:36:00* Test Item [...] management decisions. This sample was tested at [facility] using the [employer] Respiratory Panel. It is FDA cleared and has been verified and approved by [facility] for clinical use on nasopharyngeal swa b specimens.ALL RESPIRATORY VIRAL PANEL Testing performed at [place], [place] [address]RESULTS HAVE BEEN CALLED TO THE [facility] Unletri3288-57-23 20:32:00* Test Item Value Reference Range Interpretation Comments Bedside Glucose (test code = 94023-7) 112 70-120 Meter ID: [id number] [facility] CenterCapillary blood glucose measurement by glucometer (mass/volume)2019-08-15 12:26:00* Test Item Value Reference Range Interpretation Comments Bedside Glucose (test code = 96764-2) 112 mg/dL 70-120 Meter ID: [id number] [facility] by glucometer (mass/volume)2019-08-15 12:26:00* Test Item Value Reference Range Interpretation Comments Bedside Glucose (test code = 25366-4) 112 mg/dL 70-120 Meter ID: [id number] [facility] Hospitalillary blood glucose measurement by glucometer (mass/volume)2019-08-15 12:26:00* Test Item Value Reference Range Interpretation Comments Bedside Glucose (test code = 84415-4) 112 mg/dL 70-120 Meter ID: [id number] [facility] Hospitalillary blood glucose measurement by glucometer (mass/volume)2019-08-15 12:26:00* Test Item Value Reference Range Interpretation Comments Bedside Glucose (test code = 85645-4) 112 mg/dL 70-120 Meter ID: [id number] [facility] blood glucose measurement by glucometer (mass/volume)2019-08-15 12:26:00* Test Item Value Reference Range Interpretation Comments Bedside Glucose (test code = 36140-4) 112 mg/dL 70-120 Meter ID: [id number] [facility] blood glucose measurement by glucometer (mass/volume)2019-08-15 12:26:00* Test Item Value Reference Range Interpretation Comments Bedside Glucose (test code = 53441-8) 112 mg/dL 70-120 Meter ID: [id number] [facility] blood glucose measurement by glucometer (mass/volume)2019-08-15 12:26:00* Test Item Value Reference Range Interpretation Comments Bedside Glucose (test code = 70984-7) 112 mg/dL 70-120 Meter ID: [id number] [facility] blood glucose measurement by glucometer (mass/volume)2019-08-15 12:26:00* Test Item Value Reference Range Interpretation Comments Bedside Glucose (test code = 22615-8) 112 mg/dL 70-120 Meter ID: [id number] [facility] blood glucose measurement by glucometer (mass/volume)2019-08-15 11:26:00* Test Item Value Reference Range Interpretation Comments Bedside Glucose (test code = 81602-4) 112 70-120 Meter ID: [id number] [facility] blood glucose measurement by glucometer (mass/volume)2019-08-15 11:26:00* Test Item Value Reference Range Interpretation Comments Bedside Glucose (test code = 71736-5) 112 70-120 Meter ID: [id number] [facility] blood glucose measurement by glucometer (mass/volume)2019-08-15 11:26:00* Test Item Value Reference Range Interpretation Comments Bedside Glucose (test code = 01953-7) 112 70-120 Meter ID: [id number] [facility] blood glucose measurement by glucometer (mass/volume)2019-08-15 11:26:00* Test Item Value Reference Range Interpretation Comments Bedside Glucose (test code = 57911-0) 112 70-120 Meter ID: [id number] [facility] CenterCapillary blood glucose measurement by glucometer (mass/volume)2019-08-15 11:26:00* Test Item Value Reference Range Interpretation Comments Bedside Glucose (test code = 15410-3) 112 70-120 Meter ID: [id number] [facility] Hospitalodium Level 2019-08-15 05:37:00* Test Item Value Reference Range Interpretation Comments Sodium Level (test code = 2951-2) 145 136-145 [facility] HospitalPotassium Yjtca9680-57-25 05:37:00* Test Item Value Reference Range Interpretation Comments Potassium Level (test code = 2823-3) 3.3 3.5-5.1 L [facility] HospitalChloride Ckvkf3130-37-80 05:37:00* Test Item Value Reference Range Interpretation Comments Chloride Level (test code = 2075-0) 110 98-107 H [facility] HospitalCarbon Dioxide Qgeup2612-48-02 05:37:00* Test Item Value Reference Range Interpretation Comments Carbon Dioxide Level (test code = 2028-9) 26 22-29 [facility] HospitalAnion Xfk8770-07-84 05:37:00* Test Item Value Reference Range Interpretation Comments Anion Gap (test code = 92337-9) 12.3 8-16 [facility] HospitalBlood Urea Mhtizubr2216-97-99 05:37:00* Test Item Value Reference Range Interpretation Comments Blood Urea Nitrogen (test code = 3094-0) 11 7-26 [facility] HospitalCreatinine2020-04-06 05:37:00* Test Item Value Reference Range Interpretation Comments Creatinine (test code = 2160-0) 0.54 0.72-1.25 L [facility] HospitalBUN/Creatinine Fojbs0613-04-58 05:37:00* Test Item Value Reference Range Interpretation Comments BUN/Creatinine Ratio (test code = 3097-3) 20 6-25 [facility] HospitalEstimat Glomerular Filtration Rate 2019-08-15 05:37:00* Test Item Value Reference Range Interpretation Comments Estimat Glomerular Filtration Rate (test code = 223606494) > 60 >60 Ranges were taken from the National Kidney Disease Education Program and the [facility] Kidney Foundation literature.Reference ranges:60 or greater: Bivvem53-80 ( for 3 consecutive months): Chronic kidney disease 15 or less: Kidney failureMemorial Hermann Southeast HospitalGlucose Hbgyu4737-91-07 05:37:00* Test Item Value Reference Range Interpretation Comments Glucose Level (test code = ZSX5017) 88 74-118 [facility] HospitalCalcium Wggbu8946-45-22 05:37:00* Test Item Value Reference Range Interpretation Comments Calcium Level (test code = 50025-5) 8.5 8.4-10.2 [facility] HospitalCoronavirus (PCR)2019-08-15 05:13:00* Test Item Value Reference [...] to perform high complexity tests.Specimen sent to [facility] and testing performed by [facility] [address] [place] [address] [phone] Director: Jose Alberto M.D.CLIA # [id number] General Hospitalerum or plasma sodium measurement (moles/volume)2019-08-15 04:50:00* Test Item Value Reference Range Interpretation Comments Sodium Level (test code = 2951-2) 145 136-145 [facility] Hospitalerum or plasma potassium measurement (moles/volume)2019-08-15 04:50:00* Test Item Value Reference Range Interpretation Comments Potassium Level (test code = 2823-3) 3.3 3.5-5.1 [facility] Hospitalerum or plasma chloride measurement (moles/volume)2019-08-15 04:50:00* Test Item Value Reference Range Interpretation Comments Chloride Level (test code = 2075-0) 110 98-107 [facility] Hospitalerum or plasma carbon dioxide, total measurement (moles/volume)2019-08-15 04:50:00* Test Item Value Reference Range Interpretation Comments Carbon Dioxide Level (test code = 2028-9) 26 22-29 [facility] Hospitalerum or plasma anion mha2822-37-61 04:50:00* Test Item Value Reference Range Interpretation Comments Anion Gap (test code = 37603-5) 12.3 8-16 [facility] Hospitalerum or plasma urea nitrogen measurement (mass/volume)2019-08-15 04:50:00* Test Item Value Reference Range Interpretation Comments Blood Urea Nitrogen (test code = 3094-0) 11 7-26 [facility] Hospitalerum or plasma creatinine measurement (mass/volume)2019-08-15 04:50:00* Test Item Value Reference Range Interpretation Comments Creatinine (test code = 2160-0) 0.54 0.72-1.25 [facility] Hospitalerum or plasma urea nitrogen/creatinine mass jyoaj7854-81-81 04:50:00* Test Item Value Reference Range Interpretation Comments BUN/Creatinine Ratio (test code = 3097-3) 20 6-25 [facility] HospitalEstimated glomerular filtration rate (GFR) dgmhnqhlvshgq9156-49-89 04:50:00* Test Item Value Reference Range Interpretation Comments Estimat Glomerular Filtration Rate (test code = 570325992) > 60 >60 Ranges were taken from the National Kidney Disease Education Program and the [facility] Kid[facility] Foundation literature.Reference ranges:60 or greater: Slmicx70-67 ( for 3 consecutive months): Chronic kidney disease 15 or less: Kidney failureMemorial Hermann Southeast HospitalGlucose bxvcizxqykv9671-73-21 04:50:00* Test Item Value Reference Range Interpretation Comments Glucose Level (test code = KQC7084) 88 74-118 [facility] Hospitalerum or plasma calcium measurement (mass/volume)2019-08-15 04:50:00* Test Item Value Reference Range Interpretation Comments Calcium Level (test code = 39186-8) 8.5 8.4-10.2 [facility] SINGLE (PORTABLE)2019-08-14 10:31:00 [facility] [address] [address] Patient Name: VANESSA KHOURY MR #: [id number] : 1975 Age/Sex: 44/M Req #: [id number] Adm Physician: ABDI BETHEA MD Ordered by: ANY CHACON MD Report #: [id number] Location: ICU Room/Bed: ICU [facility] Procedure: [id number] DX/CH EST SINGLE (PORTABLE) Exam Date: 08/14/19 [...] ARRIOLA MD 1034 Transcribed By: SARAH on 08/14/191033 COPY TO: ANY CHACON MD Total Upgvjjfdt5885-37-04 05:44:00* Test Item Value Reference Range Interpretation Comments Total Bilirubin (test code = 1975-2) 0.5 0.2-1.2 [facility] HospitalAspartate Amino Transf (AST/SGOT) 2019-08-14 05:44:00* Test Item Value Reference Range Interpretation Comments Aspartate Amino Transf (AST/SGOT) (test code = Aspartate Amino Transf (AST/SGOT)) 18 5-34 [facility] HospitalAlanine Aminotransferase (ALT/SGPT) 2019-08-14 05:44:00* Test Item Value Reference Range Interpretation Comments Alanine Aminotransferase (ALT/SGPT) (test code = 1742-6) 17 0-55 [facility] HospitalTotal Arvgjwt2512-04-41 05:44:00* Test Item Value Reference Range Interpretation Comments Total Protein (test code = 2885-2) 5.9 6.5-8.1 L [facility] HospitalAlbumin2020-04-05 05:44:00* Test Item Value Reference Range Interpretation Comments Albumin (test code = 1751-7) 2.5 3.5-5.0 L [facility] HospitalGlobulin2020-04-05 05:44:00* Test Item Value Reference Range Interpretation Comments Globulin (test code = 93947-0) 3.4 2.3-3.5 [facility] HospitalAlbumin/Globulin Tbplg8884-62-91 05:44:00 * Test Item Value Reference Range Interpretation Comments Albumin/Globulin Ratio (test code = 1759-0) 0.7 0.8-2.0 L [facility] HospitalAlkaline Btbbrtrmlik4479-63-50 05:44:00* Test Item Value Reference Range Interpretation Comments Alkaline Phosphatase (test code = 6768-6) 108 40-150 [facility] HospitalProthrombin Kvae0253-90-33 05:40:00* Test Item Value Reference Range Interpretation Comments Prothrombin Time (test code = 5902-2) 15.9 11.9-14.5 H [facility] HospitalProthromb Time International Ratio 2019-08-14 05:40:00* Test Item Value Reference Range Interpretation Comments Prothromb Time International Ratio (test code = 6301-6) 1.19 Oral Anticoagulant Therapy INR Values:1. Low Intensity Therapy 1.5 - 2.02 . Moderate Intensity Therapy 2.0 - 3.03. High Intensity Therapy(1) 2.5 - 3. 54. High Intensity Therapy(2) 3.0 - 4.05. Panic Value INR > 5.0 [facility] HospitalWhite Blood Jqend8971-88-55 05:25:00* Test Item Value Reference Range Interpretation Comments White Blood Count (test code = 6690-2) 7.01 4.8-10.8 [facility] HospitalRed Blood Lomlu9624-84-15 05:25:00* Test Item Value Reference Range Interpretation Comments Red Blood Count (test code = 789-8) 3.26 4.3-5.7 L [facility] HospitalHemoglobin2020-04-05 05:25:00* Test Item Value Reference Range Interpretation Comments Hemoglobin (test code = 83362-8) 9.5 14.0-18.0 L [facility] HospitalHematocrit2020-04-05 05:25:00* Test Item Value Reference Range Interpretation Comments Hematocrit (test code = 4544-3) 31.1 38.2-49.6 L [facility] HospitalMean Corpuscular Nlxxcg6470-25-36 05:25:00* Test Item Value Reference Range Interpretation Comments Mean Corpuscular Volume (test code = 787-2) 95.4 81-99 [facility] HospitalMean Corpuscular Zszwfvfmhz8294-38-35 05:25:00* Test Item Value Reference Range Interpretation Comments Mean Corpuscular Hemoglobin (test code = 785-6) 29.1 28-32 [facility] Corpuscular Hemoglobin Concent 2019-08-14 05:25:00* Test Item Value Reference Range Interpretation Comments Mean Corpuscular Hemoglobin Concent (test code = 786-4) 30.5 31-35 L [facility] HospitalRed Cell Distribution Tgccu3532-85-72 05:25:00* Test Item Value Reference Range Interpretation Comments Red Cell Distribution Width (test code = 86987-0) 13.2 11.7 -14.4 [facility] HospitalPlatelet Lwmnt8665-39-64 05:25:00* Test Item Value Reference Range Interpretation Comments Platelet Count (test code = 777-3) 92 140-360 L [facility] HospitalNeutrophils (%) (Auto)2019-08-14 05:25:00 * Test Item Value Reference Range Interpretation Comments Neutrophils (%) (Auto) (test code = 63878-2) 73.3 38.7-80.0 [facility] HospitalLymphocytes (%) (Auto)2019-08-14 05:25:00 * Test Item Value Reference Range Interpretation Comments Lymphocytes (%) (Auto) (test code = 736-9) 18.7 18.0-39.1 [facility] HospitalMonocytes (%) (Auto)2019-08-14 05:25:00* Test Item Value Reference Range Interpretation Comments Monocytes (%) (Auto) (test code = 5905-5) 6.7 4.4-11.3 [facility] HospitalEosinophils (%) (Auto)2019-08-14 05:25:00 * Test Item Value Reference Range Interpretation Comments Eosinophils (%) (Auto) (test code = 713-8) 0.7 0.0-6.0 [facility] HospitalBasophils (%) (Auto)2019-08-14 05:25:00* Test Item Value Reference Range Interpretation Comments Basophils (%) (Auto) (test code = 706-2) 0.3 0.0-1.0 [facility] HospitalIM GRANULOCYTES %2019-08-14 05:25:00* Test Item Value Reference Range Interpretation Comments IM GRANULOCYTES % (test code = IM GRANULOCYTES %) 0.3 0.0- 1.0 [facility] HospitalNeutrophils # (Auto)2019-08-14 05:25:00* Test Item Value Reference Range Interpretation Comments Neutrophils # (Auto) (test code = 751-8) 5.1 2.1-6.9 [facility] HospitalLymphocytes # (Auto)2019-08-14 05:25:00* Test Item Value Reference Range Interpretation Comments Lymphocytes # (Auto) (test code = 16933-0) 1.3 1.0-3.2 [facility] HospitalMonocytes # (Auto)2019-08-14 05:25:00* Test Item Value Reference Range Interpretation Comments Monocytes # (Auto) (test code = 742-7) 0.5 0.2-0.8 [facility] HospitalEosinophils # (Auto)2019-08-14 05:25:00* Test Item Value Reference Range Interpretation Comments Eosinophils # (Auto) (test code = 711-2) 0.1 0.0-0.4 [facility] HospitalBasophils # (Auto)2019-08-14 05:25:00* Test Item Value Reference Range Interpretation Comments Basophils # (Auto) (test code = 704-7) 0.0 0.0-0.1 [facility] HospitalAbsolute Immature Granulocyte (auto 2019-08-14 05:25:00* Test Item Value Reference Range Interpretation Comments Absolute Immature Granulocyte (auto (mabel t code = Absolute Immature Granulocyte (auto) 0.02 0-0.1 [facility] HospitalBlood leukocytes automated count (number/volume)2019-08-14 04:39:00* Test Item Value Reference Range Interpretation Comments White Blood Count (test code = 6690-2) 7.01 4.8-10.8 [facility] HospitalBlood erythrocytes automated count (number/volume)2019-08-14 04:39:00* Test Item Value Reference Range Interpretation Comments Red Blood Count (test code = 789-8) 3.26 4.3-5.7 [facility] HospitalBlood hemoglobin measurement (moles/volume)2019-08-14 04:39:00* Test Item Value Reference Range Interpretation Comments Hemoglobin (test code = 47509-8) 9.5 14.0-18.0 [facility] HospitalAutomated blood hematocrit (volume fraction)2019-08-14 04:39:00* Test Item Value Reference Range Interpretation Comments Hematocrit (test code = 4544-3) 31.1 38.2-49.6 [facility] HospitalAutomated erythrocyte mean corpuscular cauxoc6259-99-02 04:39:00* Test Item Value Reference Range Interpretation Comments Mean Corpuscular Volume (test code = 787-2) 95.4 81-99 [facility] HospitalAutomated erythrocyte mean corpuscular hemoglobin (mass per erythrocyte)2019-08-14 04:39:00* Test Item Value Reference Range Interpretation Comments Mean Corpuscular Hemoglobin (test code = 785-6) 29.1 28-32 [facility] HospitalAut[facility] erythrocyte mean corpuscular hemoglobin concentration measurement (mass/volume)2019-08-14 04:39:00* Test Item Value Reference Range Interpretation Comments Mean Corpuscular Hemoglobin Concent (test code = 786-4) 30.5 31-35 [facility] HospitalRDW CdgEc-Eae0646-60-05 04:39:00* Test Item Value Reference Range Interpretation Comments Red Cell Distribution Width (test code = 53769-0) 13.2 11.7 -14.4 [facility] blood platelet count (count/volume)2019-08-14 04:39:00* Test Item Value Reference Range Interpretation Comments Platelet Count (test code = 777-3) 92 140-360 [facility] neutrophil count as percentage of total mgiuhmsfxn1199-73-80 04:39:00* Test Item Value Reference Range Interpretation Comments Neutrophils (%) (Auto) (test code = 38251-5) 73.3 38.7-80.0 [facility] HospitalAut[facility] center blood lymphocyte count as percentage ot total sqoauxgwll5588-33-96 04:39:00* Test Item Value Reference Range Interpretation Comments Lymphocytes (%) (Auto) (test code = 736-9) 18.7 18.0-39.1 [facility] HospitalAutformerly [facility] hospitaled blood monocyte count as percentage of total lvpxdcgpgv9998-28-02 04:39:00* Test Item Value Reference Range Interpretation Comments Monocytes (%) (Auto) (test code = 5905-5) 6.7 4.4-11.3 [facility] HospitalAutomated blood eosinophil count as percentage of total gkernuyuww3370-81-84 04:39:00* Test Item Value Reference Range Interpretation Comments Eosinophils (%) (Auto) (test code = 713-8) 0.7 0.0-6.0 [facility] HospitalAutomated blood basophil count as percentage of total etexecpzwf0648-59-94 04:39:00* Test Item Value Reference Range Interpretation Comments Basophils (%) (Auto) (test code = 706-2) 0.3 0.0-1.0 [facility] HospitalFluoroscopic procedure less than one hour vhtvznmf1047-51-33 04:39:00* Test Item Value Reference Range Interpretation Comments IM GRANULOCYTES % (test code = IM GRANULOCYTES %) 0.3 0.0- 1.0 [facility] HospitalAutomated blood neutrophil count 2019-08-14 04:39:00* Test Item Value Reference Range Interpretation Comments Neutrophils # (Auto) (test code = 751-8) 5.1 2.1-6.9 [facility] HospitalBlood lymphocytes count (number/volume) 2019-08-14 04:39:00* Test Item Value Reference Range Interpretation Comments Lymphocytes # (Auto) (test code = 26465-3) 1.3 1.0-3.2 [facility] HospitalBlood monocytes automated count (number/volume)2019-08-14 04:39:00* Test Item Value Reference Range Interpretation Comments Monocytes # (Auto) (test code = 742-7) 0.5 0.2-0.8 [facility] HospitalAutomated blood eosinophil count 2019-08-14 04:39:00* Test Item Value Reference Range Interpretation Comments Eosinophils # (Auto) (test code = 711-2) 0.1 0.0-0.4 [facility] HospitalAutomated blood basophil count (count/volume)2019-08-14 04:39:00* Test Item Value Reference Range Interpretation Comments Basophils # (Auto) (test code = 704-7) 0.0 0.0-0.1 [facility] HospitalFluoroscopic procedure less than one hour uhwyvfnc4012-94-70 04:39:00* Test Item Value Reference Range Interpretation Comments Absolute Immature Granulocyte (auto (mabel t code = Absolute Immature Granulocyte (auto) 0.02 0-0.1 [facility] HospitalProthrombin time (PT) in platelet poor plasma by coagulation vhemj8212-58-55 04:39:00* Test Item Value Reference Range Interpretation Comments Prothrombin Time (test code = 5902-2) 15.9 11.9-14.5 [facility] HospitalINR in Platelet poor plasma by Coagulation jvdqc1794-38-52 04:39:00* Test Item Value Reference Range Interpretation Comments Prothromb Time International Ratio (test code = 6301-6) 1.19 Oral Anticoagulant Therapy INR Values:1. Low Intensity Therapy 1.5 - 2.02 . Moderate Intensity Therapy 2.0 - 3.03. High Intensity Therapy(1) 2.5 - 3. 54. High Intensity Therapy(2) 3.0 - 4.05. Panic Value INR > 5.0 [facility] total bilirubin measurement (mass/volume)2019-08-14 04:39:00* Test Item Value Reference Range Interpretation Comments Total Bilirubin (test code = 1975-2) 0.5 0.2-1.2 [facility] HospitalFluoroscopic procedure less than one hour lpgcysap4331-34-46 04:39:00* Test Item Value Reference Range Interpretation Comments Aspartate Amino Transf (AST/SGOT) (test code = Aspartate Amino Transf (AST/SGOT)) 18 5-34 [facility] Hospitalerum or plasma alanine aminotransferase measurement (enzymatic activity/volume)2019-08-14 04:39:00* Test Item Value Reference Range Interpretation Comments Alanine Aminotransferase (ALT/SGPT) (test code = 1742-6) 17 0-55 [facility] Hospitalerum or plasma protein measurement (mass/volume)2019-08-14 04:39:00* Test Item Value Reference Range Interpretation Comments Total Protein (test code = 2885-2) 5.9 6.5-8.1 [facility] Hospitalerum or plasma albumin measurement (mass/volume)2019-08-14 04:39:00* Test Item Value Reference Range Interpretation Comments Albumin (test code = 1751-7) 2.5 3.5-5.0 [facility] HospitalPlasma globulin measurement (mass/volume) 2019-08-14 04:39:00* Test Item Value Reference Range Interpretation Comments Globulin (test code = 05341-3) 3.4 2.3-3.5 [facility] Hospitalerum or plasma albumin/globulin mass dlhah8865-03-23 04:39:00* Test Item Value Reference Range Interpretation Comments Albumin/Globulin Ratio (test code = 1759-0) 0.7 0.8-2.0 [facility] Hospitalerum or plasma alkaline phosphatase measurement (enzymatic activity/volume)2019-08-14 04:39:00* Test Item Value Reference Range Interpretation Comments Alkaline Phosphatase (test code = 6768-6) 108 40-150 [facility] HospitalCreatine Kinase TE3863-50-78 07:46:00* Test Item Value Reference Range Interpretation Comments Creatine Kinase MB (test code = 58606-7) 0.60 0-5.0 [facility] HospitalTroponin S0599-52-94 07:46:00* Test Item Value Reference Range Interpretation Comments Troponin I (test code = 10004-2) 0.018 0-0.300 [facility] HospitalCreatine Gxaujn4212-75-36 07:24:00* Test Item Value Reference Range Interpretation Comments Creatine Kinase (test code = 2157-6) 64 30-200 [facility] Hospitalerum or plasma creatine kinase measurement (enzymatic activity/volume)2019-08-13 06:53:00* Test Item Value Reference Range Interpretation Comments Creatine Kinase (test code = 2157-6) 64 30-200 [facility] Hospitalerum or plasma creatine kinase MB measurement (mass/volume)2019-08-13 06:53:00* Test Item Value Reference Range Interpretation Comments Creatine Kinase MB (test code = 93131-7) 0.60 0-5.0 [facility] HospitalTroponin I measurement by highly sensitive enzyme cqanybquzwq6104-75-56 06:53:00* Test Item Value Reference Range Interpretation Comments Troponin I (test code = 51823-2) 0.018 0-0.300 [facility] HospitalCT CHEST OV4140-35-95 04:56:00 [facility] [address] [address] Patient Name: VANESSA KHOURY MR #: [id number] : 1975 Age/Sex: 44/M Req #: [id number] Adm Physician: Ordered by: KAY PHILIPPE MD Report #: [id number] Location: ER Room/Bed: Procedure: 0404-[address]/CT CHEST WO Exam Date: Exam Time: REPORT STATUS: Signed CT chest without enha ncement CPT code: 16430 INDICATION: Fever, atelectasis TECHNIQUE : Thin collimation [...] 5:04 AM Dictated By: NAHUM BATES MD Transcribed By: SARAH on 08/13/19503 COPY TO: KAY PHILIPPE MD Lactic Acid Kafnc8748-83-43 03:59:00* Test Item Value Reference Range Interpretation Comments Lactic Acid Level (test code = Lactic Acid Level) 1.0 0.5- 2.0 [facility] HospitalUrine Oliax1243-68-25 03:41:00* Test Item Value Reference Range Interpretation Comments Urine Color (test code = 5778-6) ASHISH YELLOW H [facility] HospitalUrine Ldleamk1422-89-89 03:41:00* Test Item Value Reference Range Interpretation Comments Urine Clarity (test code = 42723-1) HAZY CLEAR [facility] HospitalUrine Specific Wgeklds4455-39-52 03:41:00 * Test Item Value Reference Range Interpretation Comments Urine Specific [place] (test code = 5811-5) 1.030 1.010-1.02 5 H [facility] HospitalUrine rQ2772-16-32 03:41:00* Test Item Value Reference Range Interpretation Comments Urine pH (test code = 64361-7) 6 5-7 [facility] HospitalUrine Leukocyte Poymnokb9698-44-99 03:41:00* Test Item Value Reference Range Interpretation Comments Urine Leukocyte Esterase (test code = 5799-2) NEGATIVE NEGATIVE [facility] Rnzfnfz9487-36-02 03:41:00* Test Item Value Reference Range Interpretation Comments Urine Nitrite (test code = 23753-4) NEGATIVE NEGATIVE [facility] HospitalUrine Mxocrlc0507-20-29 03:41:00* Test Item Value Reference Range Interpretation Comments Urine Protein (test code = 5804-0) 2+ NEGATIVE H [facility] HospitalUrine Glucose (UA)2019-08-13 03:41:00* Test Item Value Reference Range Interpretation Comments Urine Glucose (UA) (test code = 2349-9) NEGATIVE NEGATIVE [facility] HospitalUrine Lswvmrj5592-26-35 03:41:00* Test Item Value Reference Range Interpretation Comments Urine Ketones (test code = 65465-5) NEGATIVE NEGATIVE [facility] HospitalUrine Zbooavigpbfq4128-42-37 03:41:00* Test Item Value Reference Range Interpretation Comments Urine Urobilinogen (test code = 58760-9) 1 0.2-1 [facility] HospitalUrine Pgwwquszx4406-96-24 03:41:00* Test Item Value Reference Range Interpretation Comments Urine Bilirubin (test code = 1978-6) NEGATIVE NEGATIVE [facility] HospitalUrine Tewxy8596-77-29 03:41:00* Test Item Value Reference Range Interpretation Comments Urine Blood (test code = 89378-5) NEGATIVE NEGATIVE [facility] HospitalUrine TGM6649-71-50 03:41:00* Test Item Value Reference Range Interpretation Comments Urine WBC (test code = 5821-4) 0-5 0-5 [facility] HospitalUrine YIU9658-05-58 03:41:00* Test Item Value Reference Range Interpretation Comments Urine RBC (test code = 45891-2) NONE 0-5 [facility] HospitalUrine Lxttvnkw6689-60-50 03:41:00* Test Item Value Reference Range Interpretation Comments Urine Bacteria (test code = 79589-5) FEW NONE [facility] HospitalUrine Epithelial Nrdqz0537-82-03 03:41:00 * Test Item Value Reference Range Interpretation Comments Urine Epithelial Cells (test code = 07223-4) FEW NONE [facility] HospitalInfluenza Virus Types A,B Antigen 2019-08-13 03:10:00* Test Item Value Reference Range Interpretation Comments Influenza Virus Types A,B Antigen (test code = 31503-9) NEGATIVE NEGATIVE [facility] HospitalGroup A Streptococcus Nnpvjj3139-62-55 03:10:00* Test Item Value Reference Range Interpretation Comments Group A Streptococcus Screen (test code = 97328-4) NEGATIVE NEG ATIVE [facility] HospitalCHEST SINGLE (PORTABLE)2019-08-13 03:06:00 [address] [address] Patient Name: VANESSA KHOURY MR #: [id number] : 1975 Age/Sex: 44/M Req #: [id number] Adm Physician: Ordered by: KAY PHILIPPE MD Report #: [id number] Location: ER Room/Bed: Procedure: [id number] 4 DX/CHEST SINGLE (PORTABLE) Exam Date: 08/13/19 Jani gutierrez Time: 0248 REPORT STATUS: Signed EXAMINATION: CHEST SINGLE (PORTABLE) COMPARISON: None INDICATI ON: Fever fever [id number] Y DISCUSSION: Frontal view o f the [...] MD Fluoroscopic procedure less than one hour oomzklzb4865-17-45 03:00:00* Test Item Value Reference Range Interpretation Comments Lactic Acid Level (test code = Lactic Acid Level) 1.0 0.5- 2.0 [facility] HospitalFluoroscopic procedure less than one hour ongynyts6362-21-90 03:00:00* Test Item Value Reference Range Interpretation [...] to perform high complexity tests.Specimen sent to [facility] and testing performed by Clinical Pathology [address] [place] [address] [phone] Director: Jose Alberto M.D.CLIA # 4 [id number] [facility]ann [facility] HospitalFluoroscopic procedure less than one hour eugnovfa7288-31-75 03:00:00* Test Item Value Reference Range Interpretation [...] to perform high complexity tests.Specimen sent to [facility] and testing performed by Clinical Pathology [address] [place] [address] [phone] Director: Jose Alberto M.D.CLIA # 4 [id number] [facility] CenterFluoroscopic procedure less than one hour mijvwqpe5583-66-28 03:00:00* Test Item Value Reference Range Interpretation [...] to perform high complexity tests.Specimen sent to [facility] and testing performed by Clinical Pathology [address] [place] [address] [phone] Director: Jose Alberto M.D.CLIA # 4 [id number] [facility] CenterFluoroscopic procedure less than one hour lviibjjy5352-43-47 03:00:00* Test Item Value Reference Range Interpretation [...] to perform high complexity tests.Specimen sent to [facility] and testing performed by Clinical Pathology [address] [place], [place] [phone] Director: Jose Alberto M.D.[facility] # 4 [id number] [facility] CenterFluoroscopic procedure less than one hour rroeuxge4262-14-42 03:00:00* Test Item Value Reference Range Interpretation [...] to perform high complexity tests.Specimen sent to [facility] and testing performed by Clinical Pathology [address] [place] [address] [phone] Director: Jose Alberto M.D.CLIA # 4 [id number] [facility] CenterFluoroscopic procedure less than one hour qgbokacr4536-28-37 03:00:00* Test Item Value Reference Range Interpretation [...] to perform high complexity tests.Specimen sent to [facility] and testing performed by Clinical Pathology [address] [place] [address] [phone] Director: Jose Alberto M.D.CLIA # 4 [id number] [facility] CenterFluoroscopic procedure less than one hour ijjmnvac4478-82-41 03:00:00* Test Item Value Reference Range Interpretation [...] to perform high complexity tests.Specimen sent to [facility] and testing performed by Clinical Pathology [address] [place] [address] [phone] Director: Jose Albreto M.D.CLIA # 4 [id number] [facility] CenterFluoroscopic procedure less than one hour lvwyehvm7687-17-36 03:00:00* Test Item Value Reference Range Interpretation [...] to perform high complexity tests.Specimen sent to [facility] and testing performed by Clinical Pathology [address] [place] [address] [phone] Director: Jose Alberto M.D.CLIA # 4 [id number] [facility]ann [facility] HospitalArterial blood pH measurement 2019-08-13 02:40:00* Test Item Value Reference Range Interpretation Comments Arterial Blood pH (test code = 2744-1) 7.49 7.31-7.41 [facility] HospitalpCO2 CwqZ4086-17-26 02:40:00* Test Item Value Reference Range Interpretation Comments Arterial Blood Partial Pressure CO2 (test code = 2018-12) 32 mm[Hg] 35-45 [facility] HospitalArterial blood bicarbonate measurement (moles/volume)2019-08-13 02:40:00* Test Item Value Reference Range Interpretation Comments Arterial Blood HCO3 (test code = 1959-) 25 mmol/L 23-28 [facility] HospitalArterial blood base excess by calculation 2019-08-13 02:40:00* Test Item Value Reference Range Interpretation Comments Arterial Blood Base Excess (test code = 1925-7) 1.0 mmol/L -2-3 [facility] HospitalFluoroscopic procedure less than one hour pdyebhpz6450-42-37 02:40:00* Test Item Value Reference Range Interpretation Comments FiO2 (test code = FiO2) 80 % 40 [facility]URI SET [facility] kbhyojfrctc8617-90-52 02:40:00* Test Item Value Reference Range Interpretation Comments Arterial Blood pH (test code = 2744-1) 7.49 7.31-7.41 [facility] HospitalpCO2 GimE0871-97-35 02:40:00* Test Item Value Reference Range Interpretation Comments Arterial Blood Partial Pressure CO2 (test code = 2018-8) 32 mm[Hg] 35-45 [facility] HospitalArterial blood bicarbonate measurement (moles/volume)2019-08-13 02:40:00* Test Item Value Reference Range Interpretation Comments Arterial Blood HCO3 (test code = 1960-4) 25 mmol/L [facility] HospitalArterial blood base excess by calculation 2019-08-13 02:40:00* Test Item Value Reference Range Interpretation Comments Arterial Blood Base Excess (test code = 1925-7) 1.0 mmol/L -2-3 [facility] HospitalFluoroscopic procedure less than one hour albejkma9753-87-13 02:40:00* Test Item Value Reference Range Interpretation Comments FiO2 (test code = FiO2) 80 % 40 VENTURI SET [facility]Ar[facility] blood pH twagfdvlvez2867-49-92 02:40:00* Test Item Value Reference Range Interpretation Comments Arterial Blood pH (test code = 2744-1) 7.49 7.31-7.41 [facility] HospitalpCO2 FmvF7536-53-65 02:40:00* Test Item Value Reference Range Interpretation Comments Arterial Blood Partial Pressure CO2 (test code = 2019-8) 32 mm[Hg] 35-45 [facility] HospitalArterial blood bicarbonate measurement (moles/volume)2019-08-13 02:40:00* Test Item Value Reference Range Interpretation Comments Arterial Blood HCO3 (test code = 1960-4) 25 mmol/L - [facility] HospitalArterial blood base excess by calculation 2019-08-13 02:40:00* Test Item Value Reference Range Interpretation Comments Arterial Blood Base Excess (test code = 1925-7) 1.0 mmol/L -2-3 [facility] HospitalFluoroscopic procedure less than one hour ruuaflwf1394-49-18 02:40:00* Test Item Value Reference Range Interpretation Comments FiO2 (test code = FiO2) 80 % 40 [facility]ENTURI SET [facility]Ar[facility] blood pH ztygcpjrsct4929-08-36 02:40:00* Test Item Value Reference Range Interpretation Comments Arterial Blood pH (test code = 2744-1) 7.49 7.31-7.41 [facility] HospitalpCO2 OkgT3111-70-75 02:40:00* Test Item Value Reference Range Interpretation Comments Arterial Blood Partial Pressure CO2 (test code = 2019-8) 32 mm[Hg] 35-45 [facility] HospitalArterial blood bicarbonate measurement (moles/volume)2019-08-13 02:40:00* Test Item Value Reference Range Interpretation Comments Arterial Blood HCO3 (test code = 1960-4) 25 mmol/L - [facility] HospitalArterial blood base excess by calculation 2019-08-13 02:40:00* Test Item Value Reference Range Interpretation Comments Arterial Blood Base Excess (test code = 1925-7) 1.0 mmol/L -2-3 [facility] HospitalFluoroscopic procedure less than one hour ebuhkudk1749-72-18 02:40:00* Test Item Value Reference Range Interpretation Comments FiO2 (test code = FiO2) 80 % 40 [facility]URI SET [facility] WorthAr[facility] blood pH vpnixlssuhy4422-01-94 02:40:00* Test Item Value Reference Range Interpretation Comments Arterial Blood pH (test code = 2744-1) 7.49 7.31-7.41 [facility] HospitalpCO2 YkoT9069-97-01 02:40:00* Test Item Value Reference Range Interpretation Comments Arterial Blood Partial Pressure CO2 (test code = 2019-8) 32 mm[Hg] 35-45 [facility] HospitalArterial blood bicarbonate measurement (moles/volume)2019-08-13 02:40:00* Test Item Value Reference Range Interpretation Comments Arterial Blood HCO3 (test code = 1960-4) 25 mmol/L - [facility] HospitalArterial blood base excess by calculation 2019-08-13 02:40:00* Test Item Value Reference Range Interpretation Comments Arterial Blood Base Excess (test code = 1925-7) 1.0 mmol/L -2-3 [facility] HospitalFluoroscopic procedure less than one hour lusspvzj5106-18-93 02:40:00* Test Item Value Reference Range Interpretation Comments FiO2 (test code = FiO2) 80 % 40 [facility]ENTURI SET [facility]Ar[facility] blood pH jmhgeqptqcb7066-24-01 02:40:00* Test Item Value Reference Range Interpretation Comments Arterial Blood pH (test code = 2744-1) 7.49 7.31-7.41 [facility] HospitalpCO2 MjlD0617-59-84 02:40:00* Test Item Value Reference Range Interpretation Comments Arterial Blood Partial Pressure CO2 (test code = 2019-8) 32 mm[Hg] 35-45 [facility] HospitalArterial blood bicarbonate measurement (moles/volume)2019-08-13 02:40:00* Test Item Value Reference Range Interpretation Comments Arterial Blood HCO3 (test code = 1960-4) 25 mmol/L [facility] HospitalArterial blood base excess by calculation 2019-08-13 02:40:00* Test Item Value Reference Range Interpretation Comments Arterial Blood Base Excess (test code = 1925-7) 1.0 mmol/L -2-3 [facility] HospitalFluoroscopic procedure less than one hour isrnetro3640-38-38 02:40:00* Test Item Value Reference Range Interpretation Comments FiO2 (test code = FiO2) 80 % 40 [facility]ENTURI SET [facility]Ar[facility] blood pH rhbrnjdbbot9644-47-10 02:40:00* Test Item Value Reference Range Interpretation Comments Arterial Blood pH (test code = 2744-1) 7.49 7.31-7.41 [facility] HospitalpCO2 XheS7461-29-60 02:40:00* Test Item Value Reference Range Interpretation Comments Arterial Blood Partial Pressure CO2 (test code = 2019-8) 32 mm[Hg] 35-45 [facility] HospitalArterial blood bicarbonate measurement (moles/volume)2019-08-13 02:40:00* Test Item Value Reference Range Interpretation Comments Arterial Blood HCO3 (test code = 1960-4) 25 mmol/L 23- [facility] HospitalArterial blood base excess by calculation 2019-08-13 02:40:00* Test Item Value Reference Range Interpretation Comments Arterial Blood Base Excess (test code = 1925-7) 1.0 mmol/L -2-3 [facility]Fluor[facility] procedure less than one hour twbshslr6606-56-25 02:40:00* Test Item Value Reference Range Interpretation Comments FiO2 (test code = FiO2) 80 % 40 VENTURI SET [facility] lhsvbupluub4344-93-77 02:40:00* Test Item Value Reference Range Interpretation Comments Arterial Blood pH (test code = 2744-1) 7.49 7.31-7.41 [facility] HospitalpCO2 ReoK6493-69-54 02:40:00* Test Item Value Reference Range Interpretation Comments Arterial Blood Partial Pressure CO2 (test code = 2019-8) 32 mm[Hg] 35-45 [facility] HospitalArterial blood bicarbonate measurement (moles/volume)2019-08-13 02:40:00* Test Item Value Reference Range Interpretation Comments Arterial Blood HCO3 (test code = 1960-4) 25 mmol/L - [facility] HospitalArterial blood base excess by calculation 2019-08-13 02:40:00* Test Item Value Reference Range Interpretation Comments Arterial Blood Base Excess (test code = 1925-7) 1.0 mmol/L -2-3 [facility] HospitalFluoroscopic procedure less than one hour hejisupp2556-54-18 02:40:00* Test Item Value Reference Range Interpretation Comments FiO2 (test code = FiO2) 80 % 40 VENTURI SET [facility] CenterInfluenza virus A and B antigen identification by tzchcgcxbnszkfnfel9591-92-88 02:25:00* Test Item Value Reference Range Interpretation Comments Influenza Virus Types A,B Antigen (test code = 86170-1) NEGATIVE NEGATIVE [facility] HospitalFluoroscopic procedure less than one hour ilhiytvu6664-36-30 02:25:00* Test Item Value Reference Range Interpretation Comments Chlamydia pneumoniae DNA (PCR) (test code = Chlamydia pneumoniae DNA (PCR)) NOT DETECTED NOT DETECT [facility] HospitalRespiratory virus ezrmp3781-13-13 02:25:00* Test Item Value Reference Range Interpretation Comments Influenza Type A (RT-PCR) (test code = 329592927) NOT DETECTED NOT DETECT [facility] HospitalFluoroscopic procedure less than one hour klyvgjdn1949-62-72 02:25:00* Test Item Value Reference Range Interpretation Comments Mycoplasma pneumoniae (PCR) (test code = Mycoplasma pn eumoniae (PCR)) NOT DETECTED NOT DETECT [facility] HospitalRespiratory virus tuctx1819-74-76 02:25:00* Test Item Value Reference Range Interpretation Comments Influenza Type B (RT-PCR) (test code = 963169204) NOT DETECTED NOT DETECT [facility] HospitalRespiratory virus khdnl4852-06-17 02:25:00* Test Item Value Reference Range Interpretation Comments Respiratory Syncytial Virus (PCR) (test code = 046022268) NO T DETECTED NOT DETECT [facility] HospitalRespiratory virus uzgio7897-11-36 02:25:00* Test Item Value Reference Range Interpretation Comments Bordetella pertussis DNA (PCR) (test code = 857747326) NOT DETEC [place]LL NOT DETECT [facility] HospitalRespiratory virus ihrwz2624-28-30 02:25:00* Test Item Value Reference Range Interpretation Comments Parainfluenza Type 1 (PCR) (test code = 980753031) NOT DETECTED NOT DETECT [facility] HospitalRespiratory virus sccrh8161-64-99 02:25:00* Test Item Value Reference Range Interpretation Comments Parainfluenza Type 2 (PCR) (test code = 793176011) NOT DETECTED NOT DETECT [facility] HospitalRespiratory virus abpke8140-24-23 02:25:00* Test Item Value Reference Range Interpretation Comments Parainfluenza Type 3 (PCR) (test code = 135073428) NOT DETECTED NOT DETECT [facility] HospitalFluoroscopic procedure less than one hour iuydgitw3855-54-73 02:25:00* Test Item Value Reference Range Interpretation Comments Parainfluenza Type 4 (PCR) (test code = Parainfluenza Type 4 (PCR)) NOT DETECTED NOT DETECT [facility] HospitalRespiratory virus nfleq4783-10-02 02:25:00* Test Item Value Reference Range Interpretation Comments Rhinovirus (PCR) (test code = 526539748) NOT DETECTED NOT DETECT [facility] utzpr1761-50-61 02:25:00* Test Item Value Reference Range Interpretation Comments Human Metapneumovirus (PCR) (test code = 297726829) NOT DETECTED NO T DETECT [facility] HospitalRespiratory virus xgper2632-15-02 02:25:00* Test Item Value Reference Range Interpretation Comments Adenovirus (PCR) (test code = 493991183) NOT DETECTED NOT DETECT [facility] HospitalFluoroscopic procedure less than one hour jjsssuic4260-44-06 02:25:00* Test Item Value Reference Range Interpretation [...] management decisions. This sample was tested at [facility] using the [employer] Respiratory Panel. It is FDA cleared and has been verified and approved by [facility] for clinical use on nasopharyngeal swa b specimens.ALL RESPIRATORY VIRAL PANEL Testing performed at [address] [address]MIVGYEO HAVE BEEN CALLED [facility] HospitalFlu[facility] procedure less than one hour ueidznre7779-80-49 02:25:00* Test Item Value Reference Range Interpretation Comments Coronavirus Type HKU1 (PCR) (test code = Coronavirus T ype HKU1 (PCR)) NOT DETECTED NOT DETECT [facility] HospitalFluoroscopic procedure less than one hour ugfksues1844-55-75 02:25:00* Test Item Value Reference Range Interpretation Comments Coronavirus Type NL63 (PCR) (test code = Coronavirus T ype NL63 (PCR)) NOT DETECTED NOT DETECT [facility] HospitalFluoroscopic procedure less than one hour wiizojjh8392-81-79 02:25:00* Test Item Value Reference Range Interpretation Comments Coronavirus Type OC43 (PCR) (test code = Coronavirus T ype OC43 (PCR)) NOT DETECTED NOT DETECT [facility] antigen detection in ccfpne7616-94-14 02:25:00* Test Item Value Reference Range Interpretation Comments Group A Streptococcus Screen (test code = 71289-3) NEGATIVE NEG ATIVE [facility] HospitalInfluenza virus A and B antigen identification by nwkfmsyslmzdprrhud9820-57-88 02:25:00* Test Item Value Reference Range Interpretation Comments Influenza Virus Types A,B Antigen (test code = 94601-4) NEGATIVE NEGATIVE [facility] HospitalFluoroscopic procedure less than one hour acuoqfqp2660-02-89 02:25:00* Test Item Value Reference Range Interpretation Comments Chlamydia pneumoniae DNA (PCR) (test code = Chlamydia pneumoniae DNA (PCR)) NOT DETECTED NOT DETECT [facility] HospitalRespiratory virus nwbqk0467-12-58 02:25:00* Test Item Value Reference Range Interpretation Comments Influenza Type A (RT-PCR) (test code = 392757986) NOT DETECTED NOT DETECT [facility] HospitalFluoroscopic procedure less than one hour gujyscei3428-02-57 02:25:00* Test Item Value Reference Range Interpretation Comments Mycoplasma pneumoniae (PCR) (test code = Mycoplasma pn eumoniae (PCR)) NOT DETECTED NOT DETECT [facility] HospitalRespiratory virus fzhvu7510-52-47 02:25:00* Test Item Value Reference Range Interpretation Comments Influenza Type B (RT-PCR) (test code = 637236499) NOT DETECTED NOT DETECT [facility] HospitalRespiratory virus wsfsu5018-22-46 02:25:00* Test Item Value Reference Range Interpretation Comments Respiratory Syncytial Virus (PCR) (test code = 495160747) NO T DETECTED NOT DETECT [facility] HospitalRespiratory virus vffrd8649-51-47 02:25:00* Test Item Value Reference Range Interpretation Comments Bordetella pertussis DNA (PCR) (test code = 917485778) NOT DETEC [place] NOT DETECT [facility] HospitalRespiratory virus yzgge0321-25-56 02:25:00* Test Item Value Reference Range Interpretation Comments Parainfluenza Type 1 (PCR) (test code = 687065854) NOT DETECTED NOT DETECT [facility] HospitalRespiratory virus lvwpt8123-90-95 02:25:00* Test Item Value Reference Range Interpretation Comments Parainfluenza Type 2 (PCR) (test code = 259823743) NOT DETECTED NOT DETECT [facility] HospitalRespiratory virus mxbjs6801-81-54 02:25:00* Test Item Value Reference Range Interpretation Comments Parainfluenza Type 3 (PCR) (test code = 838248253) NOT DETECTED NOT DETECT [facility] HospitalFluoroscopic procedure less than one hour wvbebhfm5816-42-07 02:25:00* Test Item Value Reference Range Interpretation Comments Parainfluenza Type 4 (PCR) (test code = Parainfluenza Type 4 (PCR)) NOT DETECTED NOT DETECT [facility] HospitalRespiratory virus nvywv5353-33-82 02:25:00* Test Item Value Reference Range Interpretation Comments Rhinovirus (PCR) (test code = 712513948) NOT DETECTED NOT DETECT [facility] CenterRes[facility] virus bcxze2534-69-75 02:25:00* Test Item Value Reference Range Interpretation Comments Human Metapneumovirus (PCR) (test code = 701060420) NOT DETECTED NO T DETECT [facility] HospitalRespiratory virus dflgv4788-52-49 02:25:00* Test Item Value Reference Range Interpretation Comments Adenovirus (PCR) (test code = 874609804) NOT DETECTED NOT DETECT [facility] HospitalFluoroscopic procedure less than one hour ddxcqxmq1429-58-73 02:25:00* Test Item Value Reference Range Interpretation [...] management decisions. This sample was tested at [facility] using the [employer] Film[employer] ray Respiratory Panel. It is FDA cleared and has been verified and approved by [facility] for clinical use on nasopharyngeal swa b specimens.ALL RESPIRATORY VIRAL PANEL Testing performed at [address] [address]LODWPBT [facility] BE[facility] miyakgen6723-06-78 02:25:00* Test Item Value Reference Range Interpretation Comments Coronavirus Type HKU1 (PCR) (test code = Coronavirus T ype HKU1 (PCR)) NOT DETECTED NOT DETECT [facility] HospitalFluoroscopic procedure less than one hour sutrwzwx3390-79-41 02:25:00* Test Item Value Reference Range Interpretation Comments Coronavirus Type NL63 (PCR) (test code = Coronavirus T ype NL63 (PCR)) NOT DETECTED NOT DETECT [facility] HospitalFluoroscopic procedure less than one hour ztxtlizm7701-19-06 02:25:00* Test Item Value Reference Range Interpretation Comments Coronavirus Type OC43 (PCR) (test code = Coronavirus T ype OC43 (PCR)) NOT DETECTED NOT DETECT [facility] Hospitaltreptococcus pyogenes antigen detection in jugwfw9897-86-17 02:25:00* Test Item Value Reference Range Interpretation Comments Group A Streptococcus Screen (test code = 48223-0) NEGATIVE NEG ATIVE [facility] HospitalInfluenza virus A and B antigen identification by clxdqidoynzhgodbvh3862-24-74 02:25:00* Test Item Value Reference Range Interpretation Comments Influenza Virus Types A,B Antigen (test code = 19844-9) NEGATIVE NEGATIVE [facility] HospitalFluoroscopic procedure less than one hour raluxfbw6079-14-71 02:25:00* Test Item Value Reference Range Interpretation Comments Chlamydia pneumoniae DNA (PCR) (test code = Chlamydia pneumoniae DNA (PCR)) NOT DETECTED NOT DETECT [facility] HospitalRespiratory virus ybxlo0073-68-06 02:25:00* Test Item Value Reference Range Interpretation Comments Influenza Type A (RT-PCR) (test code = 965665231) NOT DETECTED NOT DETECT [facility] CenterFlu[facility] procedure less than one hour lirussah2574-16-53 02:25:00* Test Item Value Reference Range Interpretation Comments Mycoplasma pneumoniae (PCR) (test code = Mycoplasma pn eumoniae (PCR)) NOT DETECTED NOT DETECT [facility] HospitalRespiratory virus bloid3892-43-32 02:25:00* Test Item Value Reference Range Interpretation Comments Influenza Type B (RT-PCR) (test code = 232993428) NOT DETECTED NOT DETECT [facility] HospitalRespiratory virus bdtov0295-19-09 02:25:00* Test Item Value Reference Range Interpretation Comments Respiratory Syncytial Virus (PCR) (test code = 625385192) NO T DETECTED NOT DETECT [facility] HospitalRespiratory virus gcmgq5396-99-18 02:25:00* Test Item Value Reference Range Interpretation Comments Bordetella pertussis DNA (PCR) (test code = 080832640) NOT DETEC [place]LL NOT DETECT [facility] HospitalRespiratory virus hikur3129-60-18 02:25:00* Test Item Value Reference Range Interpretation Comments Parainfluenza Type 1 (PCR) (test code = 078722726) NOT DETECTED NOT DETECT [facility] CenterRes[facility] virus cfvqz0468-67-81 02:25:00* Test Item Value Reference Range Interpretation Comments Parainfluenza Type 2 (PCR) (test code = 224678874) NOT DETECTED NOT DETECT [facility] rmjdj2982-47-36 02:25:00* Test Item Value Reference Range Interpretation Comments Parainfluenza Type 3 (PCR) (test code = 929344731) NOT DETECTED NOT DETECT [facility] HospitalFluoroscopic procedure less than one hour myvghmff8114-79-95 02:25:00* Test Item Value Reference Range Interpretation Comments Parainfluenza Type 4 (PCR) (test code = Parainfluenza Type 4 (PCR)) NOT DETECTED NOT DETECT [facility] HospitalRespiratory virus mqvwr2026-62-02 02:25:00* Test Item Value Reference Range Interpretation Comments Rhinovirus (PCR) (test code = 999273254) NOT DETECTED NOT DETECT [facility] HospitalRespiratory virus ixqeu4349-97-65 02:25:00* Test Item Value Reference Range Interpretation Comments Human Metapneumovirus (PCR) (test code = 139548762) NOT DETECTED NO T DETECT [facility] HospitalRespiratory virus bnoyc2028-32-03 02:25:00* Test Item Value Reference Range Interpretation Comments Adenovirus (PCR) (test code = 612616251) NOT DETECTED NOT DETECT [facility] HospitalFluoroscopic procedure less than one hour bxlciixi9832-75-14 02:25:00* Test Item Value Reference Range Interpretation [...] management decisions. This sample was tested at [facility] using the [employer] Film[employer] ray Respiratory Panel. It is FDA cleared and has been verified and approved by [facility] for clinical use on nasopharyngeal swa b specimens.ALL RESPIRATORY VIRAL PANEL Testing performed at [address] [address]SUQUZNH HAVE BEEN CALLED TO THE [place]ERUDDYAM[facility]AB[facility]Flu[facility] less than one hour alazkzjs0220-67-15 02:25:00* Test Item Value Reference Range Interpretation Comments Coronavirus Type HKU1 (PCR) (test code = Coronavirus T ype HKU1 (PCR)) NOT DETECTED NOT DETECT [facility] HospitalFluoroscopic procedure less than one hour utvpbhby2470-70-81 02:25:00* Test Item Value Reference Range Interpretation Comments Coronavirus Type NL63 (PCR) (test code = Coronavirus T ype NL63 (PCR)) NOT DETECTED NOT DETECT [facility] HospitalFluoroscopic procedure less than one hour nnfimoqy3684-82-28 02:25:00* Test Item Value Reference Range Interpretation Comments Coronavirus Type OC43 (PCR) (test code = Coronavirus T ype OC43 (PCR)) NOT DETECTED NOT DETECT [facility] Hospitaltreptococcus pyogenes antigen detection in pophce2404-26-99 02:25:00* Test Item Value Reference Range Interpretation Comments Group A Streptococcus Screen (test code = 93792-9) NEGATIVE NEG ATIVE [facility] HospitalInfluenza virus A and B antigen identification by auzfzupvezoqeiglnk6741-77-13 02:25:00* Test Item Value Reference Range Interpretation Comments Influenza Virus Types A,B Antigen (test code = 07491-8) NEGATIVE NEGATIVE [facility] HospitalFluoroscopic procedure less than one hour roiqenzi9175-42-81 02:25:00* Test Item Value Reference Range Interpretation Comments Chlamydia pneumoniae DNA (PCR) (test code = Chlamydia pneumoniae DNA (PCR)) NOT DETECTED NOT DETECT [facility] HospitalRespiratory virus szzzt0082-31-99 02:25:00* Test Item Value Reference Range Interpretation Comments Influenza Type A (RT-PCR) (test code = 018264083) NOT DETECTED NOT DETECT [facility] HospitalFluoroscopic procedure less than one hour cjauivqa7124-91-88 02:25:00* Test Item Value Reference Range Interpretation Comments Mycoplasma pneumoniae (PCR) (test code = Mycoplasma pn eumoniae (PCR)) NOT DETECTED NOT DETECT [facility] HospitalRespiratory virus xgvfz3453-99-08 02:25:00* Test Item Value Reference Range Interpretation Comments Influenza Type B (RT-PCR) (test code = 869921370) NOT DETECTED NOT DETECT [facility] HospitalRespiratory virus fsaga8271-93-32 02:25:00* Test Item Value Reference Range Interpretation Comments Respiratory Syncytial Virus (PCR) (test code = 042532342) NO T DETECTED NOT DETECT [facility] HospitalRespiratory virus kmngl9422-10-85 02:25:00* Test Item Value Reference Range Interpretation Comments Bordetella pertussis DNA (PCR) (test code = 359215326) NOT DETEC [place] NOT DETECT [facility] abgjb0519-20-32 02:25:00* Test Item Value Reference Range Interpretation Comments Parainfluenza Type 1 (PCR) (test code = 203490579) NOT DETECTED NOT DETECT [facility] HospitalRespiratory virus amqzx3699-19-60 02:25:00* Test Item Value Reference Range Interpretation Comments Parainfluenza Type 2 (PCR) (test code = 155146717) NOT DETECTED NOT DETECT [facility] euugh3946-43-59 02:25:00* Test Item Value Reference Range Interpretation Comments Parainfluenza Type 3 (PCR) (test code = 653864419) NOT DETECTED NOT DETECT [facility] HospitalFluoroscopic procedure less than one hour bttfvfae1216-11-73 02:25:00* Test Item Value Reference Range Interpretation Comments Parainfluenza Type 4 (PCR) (test code = Parainfluenza Type 4 (PCR)) NOT DETECTED NOT DETECT [facility] HospitalRespiratory virus msyij2429-89-88 02:25:00* Test Item Value Reference Range Interpretation Comments Rhinovirus (PCR) (test code = 404992730) NOT DETECTED NOT DETECT [facility] HospitalRespiratory virus idbzb4067-92-06 02:25:00* Test Item Value Reference Range Interpretation Comments Human Metapneumovirus (PCR) (test code = 838764999) NOT DETECTED NO T DETECT [facility] HospitalRespiratory virus bwepc4471-39-66 02:25:00* Test Item Value Reference Range Interpretation Comments Adenovirus (PCR) (test code = 857369449) NOT DETECTED NOT DETECT [facility] HospitalFluoroscopic procedure less than one hour glgzpazg1808-85-31 02:25:00* Test Item Value Reference Range Interpretation [...] management decisions. This sample was tested at [facility] using the [employer] Film[employer] ray Respiratory Panel. It is FDA cleared and has been verified and approved by [facility] for clinical use on nasopharyngeal swa b specimens.ALL RESPIRATORY VIRAL PANEL Testing performed at [address] [address]YFXHIWZ HAVE BEEN [facility]ED TO [facility]Flu[facility] one hour jolucjqi8404-73-62 02:25:00* Test Item Value Reference Range Interpretation Comments Coronavirus Type HKU1 (PCR) (test code = Coronavirus T ype HKU1 (PCR)) NOT DETECTED NOT DETECT [facility] HospitalFluoroscopic procedure less than one hour ilhrhhrr8726-62-22 02:25:00* Test Item Value Reference Range Interpretation Comments Coronavirus Type NL63 (PCR) (test code = Coronavirus T ype NL63 (PCR)) NOT DETECTED NOT DETECT [facility] HospitalFluoroscopic procedure less than one hour eqpadhyg6493-53-14 02:25:00* Test Item Value Reference Range Interpretation Comments Coronavirus Type OC43 (PCR) (test code = Coronavirus T ype OC43 (PCR)) NOT DETECTED NOT DETECT [facility] Hospitaltrept[facility] pyogenes antigen detection in drbeet6442-64-98 02:25:00* Test Item Value Reference Range Interpretation Comments Group A Streptococcus Screen (test code = 85430-4) NEGATIVE NEG ATIVE [facility] HospitalInfluenza virus A and B antigen identification by vfzknfcukwptbkzubh0266-18-66 02:25:00* Test Item Value Reference Range Interpretation Comments Influenza Virus Types A,B Antigen (test code = 28911-1) NEGATIVE NEGATIVE [facility] HospitalFluoroscopic procedure less than one hour hbqepani6871-31-42 02:25:00* Test Item Value Reference Range Interpretation Comments Chlamydia pneumoniae DNA (PCR) (test code = Chlamydia pneumoniae DNA (PCR)) NOT DETECTED NOT DETECT [facility] uncjr8238-47-00 02:25:00* Test Item Value Reference Range Interpretation Comments Influenza Type A (RT-PCR) (test code = 922377432) NOT DETECTED NOT DETECT [facility] HospitalFlu[facility] procedure less than one hour zlagdlji9930-55-36 02:25:00* Test Item Value Reference Range Interpretation Comments Mycoplasma pneumoniae (PCR) (test code = Mycoplasma pn eumoniae (PCR)) NOT DETECTED NOT DETECT [facility] virus hhvkr4380-84-25 02:25:00* Test Item Value Reference Range Interpretation Comments Influenza Type B (RT-PCR) (test code = 172761462) NOT DETECTED NOT DETECT [facility] uxnoy1661-03-47 02:25:00* Test Item Value Reference Range Interpretation Comments Respiratory Syncytial Virus (PCR) (test code = 478694757) NO T DETECTED NOT DETECT [facility] kwxkf6175-38-60 02:25:00* Test Item Value Reference Range Interpretation Comments Bordetella pertussis DNA (PCR) (test code = 998998519) NOT DETEC [place] NOT DETECT [facility]Res[facility] virus dokyk4119-55-67 02:25:00* Test Item Value Reference Range Interpretation Comments Parainfluenza Type 1 (PCR) (test code = 918299273) NOT DETECTED NOT DETECT [facility] CenterRes[facility] virus baypo4818-42-76 02:25:00* Test Item Value Reference Range Interpretation Comments Parainfluenza Type 2 (PCR) (test code = 348917755) NOT DETECTED NOT DETECT [facility]Res[facility] virus wcvhb3181-03-21 02:25:00* Test Item Value Reference Range Interpretation Comments Parainfluenza Type 3 (PCR) (test code = 030667322) NOT DETECTED NOT DETECT [facility] HospitalFlu[facility] procedure less than one hour vuhzapei5589-23-98 02:25:00* Test Item Value Reference Range Interpretation Comments Parainfluenza Type 4 (PCR) (test code = Parainfluenza Type 4 (PCR)) NOT DETECTED NOT DETECT [facility]Res[facility] virus qjejp1034-28-12 02:25:00* Test Item Value Reference Range Interpretation Comments Rhinovirus (PCR) (test code = 818138906) NOT DETECTED NOT DETECT [facility] CenterRes[facility] virus hbneo5479-28-29 02:25:00* Test Item Value Reference Range Interpretation Comments Human Metapneumovirus (PCR) (test code = 665049292) NOT DETECTED NO T DETECT [facility] CenterRes[facility] virus wlenx5295-60-62 02:25:00* Test Item Value Reference Range Interpretation Comments Adenovirus (PCR) (test code = 471517553) NOT DETECTED NOT DETECT [facility] HospitalFluoroscopic procedure less than one hour zukyhinb5420-84-96 02:25:00* Test Item Value Reference Range Interpretation [...] management decisions. This sample was tested at [facility] using the [employer] ray Respiratory Panel. It is FDA cleared and has been verified and approved by [facility] for clinical use on nasopharyngeal swa b specimens.ALL RESPIRATORY VIRAL PANEL Testing performed at [address] [address]VHSTTPI HAVE BEEN CALLED TO THE [facility]entonFluoroscopic procedure less than one hour pwbzfpqg3504-78-32 02:25:00* Test Item Value Reference Range Interpretation Comments Coronavirus Type HKU1 (PCR) (test code = Coronavirus T ype HKU1 (PCR)) NOT DETECTED NOT DETECT [facility]Flu[facility] less than one hour qtfuzwkd9363-38-25 02:25:00* Test Item Value Reference Range Interpretation Comments Coronavirus Type NL63 (PCR) (test code = Coronavirus T ype NL63 (PCR)) NOT DETECTED NOT DETECT [facility]Flu[facility] less than one hour wrlvdkon2900-32-95 02:25:00* Test Item Value Reference Range Interpretation Comments Coronavirus Type OC43 (PCR) (test code = Coronavirus T ype OC43 (PCR)) NOT DETECTED NOT DETECT [facility] antigen detection in svplru6834-20-52 02:25:00* Test Item Value Reference Range Interpretation Comments Group A Streptococcus Screen (test code = 69503-1) NEGATIVE NEG ATIVE [facility] HospitalInfluenza virus A and B antigen identification by vbbjsbvlajlynvefhu7055-12-98 02:25:00* Test Item Value Reference Range Interpretation Comments Influenza Virus Types A,B Antigen (test code = 26494-6) NEGATIVE NEGATIVE [facility] HospitalFluoroscopic procedure less than one hour wpleuztp3992-80-65 02:25:00* Test Item Value Reference Range Interpretation Comments Chlamydia pneumoniae DNA (PCR) (test code = Chlamydia pneumoniae DNA (PCR)) NOT DETECTED NOT DETECT [facility] HospitalRespiratory virus vjrpl6446-30-28 02:25:00* Test Item Value Reference Range Interpretation Comments Influenza Type A (RT-PCR) (test code = 037292161) NOT DETECTED NOT DETECT [facility] HospitalFluoroscopic procedure less than one hour teajqhdq1337-73-07 02:25:00* Test Item Value Reference Range Interpretation Comments Mycoplasma pneumoniae (PCR) (test code = Mycoplasma pn eumoniae (PCR)) NOT DETECTED NOT DETECT [facility] HospitalRespiratory virus unbxk6971-44-16 02:25:00* Test Item Value Reference Range Interpretation Comments Influenza Type B (RT-PCR) (test code = 932267809) NOT DETECTED NOT DETECT [facility] HospitalRespiratory virus weqlt1061-70-40 02:25:00* Test Item Value Reference Range Interpretation Comments Respiratory Syncytial Virus (PCR) (test code = 821569535) NO T DETECTED NOT DETECT [facility] HospitalRespiratory virus tmuta7176-01-67 02:25:00* Test Item Value Reference Range Interpretation Comments Bordetella pertussis DNA (PCR) (test code = 755780328) NOT DETEC [facility]ECT [facility] gdqvm2196-02-99 02:25:00* Test Item Value Reference Range Interpretation Comments Parainfluenza Type 1 (PCR) (test code = 195345578) NOT DETECTED NOT DETECT [facility] nwjfm1501-85-71 02:25:00* Test Item Value Reference Range Interpretation Comments Parainfluenza Type 2 (PCR) (test code = 070455824) NOT DETECTED NOT DETECT [facility] CenterRes[facility] virus ngkob5969-61-44 02:25:00* Test Item Value Reference Range Interpretation Comments Parainfluenza Type 3 (PCR) (test code = 281242486) NOT DETECTED NOT DETECT [facility] CenterFluoroscopic procedure less than one hour hacmjtsv6232-90-79 02:25:00* Test Item Value Reference Range Interpretation Comments Parainfluenza Type 4 (PCR) (test code = Parainfluenza Type 4 (PCR)) NOT DETECTED NOT DETECT [facility] CenterRes[facility] virus dqqiy1584-88-38 02:25:00* Test Item Value Reference Range Interpretation Comments Rhinovirus (PCR) (test code = 680347092) NOT DETECTED NOT DETECT [facility] CenterRes[facility] virus lhvua4225-71-32 02:25:00* Test Item Value Reference Range Interpretation Comments Human Metapneumovirus (PCR) (test code = 157247905) NOT DETECTED NO T DETECT [facility] HospitalRespiratory virus rhixr1911-93-75 02:25:00* Test Item Value Reference Range Interpretation Comments Adenovirus (PCR) (test code = 007644594) NOT DETECTED NOT DETECT [facility] HospitalFluoroscopic procedure less than one hour uchmocee6242-45-28 02:25:00* Test Item Value Reference Range Interpretation [...] management decisions. This sample was tested at [facility] using the [employer] Respiratory Panel. It is FDA cleared and has been verified and approved by t [facility] for clinical use on nasopharyngeal swa b specimens.ALL RESPIRATORY VIRAL PANEL Testing performed at [address] [address] HAVE BEEN CALLED TO THE [facility] RAGSDALERUDDYAMANDAB[facility]entonFluoroscopic procedure less than one hour kxibjbfr8001-46-05 02:25:00* Test Item Value Reference Range Interpretation Comments Coronavirus Type HKU1 (PCR) (test code = Coronavirus T ype HKU1 (PCR)) NOT DETECTED NOT DETECT [facility] HospitalFluoroscopic procedure less than one hour hzwgbaaa0325-73-65 02:25:00* Test Item Value Reference Range Interpretation Comments Coronavirus Type NL63 (PCR) (test code = Coronavirus T ype NL63 (PCR)) NOT DETECTED NOT DETECT [facility] HospitalFluoroscopic procedure less than one hour ubsfuwiy6064-84-02 02:25:00* Test Item Value Reference Range Interpretation Comments Coronavirus Type OC43 (PCR) (test code = Coronavirus T ype OC43 (PCR)) NOT DETECTED NOT DETECT [facility] Hospitaltreptococcus pyogenes antigen detection in nxxyej2942-06-11 02:25:00* Test Item Value Reference Range Interpretation Comments Group A Streptococcus Screen (test code = 73085-3) NEGATIVE NEG ATIVE [facility] HospitalInfluenza virus A and B antigen identification by pxeeflgztvotlbjjuu6901-79-99 02:25:00* Test Item Value Reference Range Interpretation Comments Influenza Virus Types A,B Antigen (test code = 02544-5) NEGATIVE NEGATIVE [facility] HospitalFluoroscopic procedure less than one hour uecrjfjy7565-56-14 02:25:00* Test Item Value Reference Range Interpretation Comments Chlamydia pneumoniae DNA (PCR) (test code = Chlamydia pneumoniae DNA (PCR)) NOT DETECTED NOT DETECT [facility] HospitalRespiratory virus xblqo8312-66-37 02:25:00* Test Item Value Reference Range Interpretation Comments Influenza Type A (RT-PCR) (test code = 179565355) NOT DETECTED NOT DETECT [facility] less than one hour ucautztc0802-59-21 02:25:00* Test Item Value Reference Range Interpretation Comments Mycoplasma pneumoniae (PCR) (test code = Mycoplasma pn eumoniae (PCR)) NOT DETECTED NOT DETECT [facility]Res[facility] usynv6922-96-28 02:25:00* Test Item Value Reference Range Interpretation Comments Influenza Type B (RT-PCR) (test code = 816873036) NOT DETECTED NOT DETECT [facility]Res[facility] virus awseg9065-18-70 02:25:00* Test Item Value Reference Range Interpretation Comments Respiratory Syncytial Virus (PCR) (test code = 795332796) NO T DETECTED NOT DETECT [facility]Res[facility] virus chulm7232-99-76 02:25:00* Test Item Value Reference Range Interpretation Comments Bordetella pertussis DNA (PCR) (test code = 007294836) NOT DETEC [place] NOT DETECT [facility]Res[facility] virus kszlv9934-10-64 02:25:00* Test Item Value Reference Range Interpretation Comments Parainfluenza Type 1 (PCR) (test code = 190556193) NOT DETECTED NOT DETECT [facility]Res[facility] virus jisfb7890-03-51 02:25:00* Test Item Value Reference Range Interpretation Comments Parainfluenza Type 2 (PCR) (test code = 652781600) NOT DETECTED NOT DETECT [facility] CenterRes[facility] virus lemho2645-13-27 02:25:00* Test Item Value Reference Range Interpretation Comments Parainfluenza Type 3 (PCR) (test code = 908837563) NOT DETECTED NOT DETECT [facility]Flu[facility]oscopic procedure less than one hour kzsntmpb4199-23-26 02:25:00* Test Item Value Reference Range Interpretation Comments Parainfluenza Type 4 (PCR) (test code = Parainfluenza Type 4 (PCR)) NOT DETECTED NOT DETECT [facility]Res[facility] virus cbrfg1383-90-79 02:25:00* Test Item Value Reference Range Interpretation Comments Rhinovirus (PCR) (test code = 962380553) NOT DETECTED NOT DETECT [facility] HospitalRespiratory virus vormj3984-29-33 02:25:00* Test Item Value Reference Range Interpretation Comments Human Metapneumovirus (PCR) (test code = 018927024) NOT DETECTED NO T DETECT [facility] HospitalRespiratory virus qsaol4482-53-99 02:25:00* Test Item Value Reference Range Interpretation Comments Adenovirus (PCR) (test code = 126832530) NOT DETECTED NOT DETECT [facility] HospitalFluoroscopic procedure less than one hour chlmcpew7982-54-19 02:25:00* Test Item Value Reference Range Interpretation [...] management decisions. This sample was tested at [facility] using the [employer] ray Respiratory Panel. It is FDA cleared and has been verified and approved by [facility] for clinical use on nasopharyngeal swa b specimens.ALL RESPIRATORY VIRAL PANEL Testing performed at [place], [place] [address]RESULTS HAVE BEEN CALLED TO THE [facility]izwana GARIBAYBaylor [facility] DentonFluoroscopic procedure less than one hour rngqaazi7821-50-84 02:25:00* Test Item Value Reference Range Interpretation Comments Coronavirus Type HKU1 (PCR) (test code = Coronavirus T ype HKU1 (PCR)) NOT DETECTED NOT DETECT [facility] HospitalFluoroscopic procedure less than one hour higbolph5254-54-59 02:25:00* Test Item Value Reference Range Interpretation Comments Coronavirus Type NL63 (PCR) (test code = Coronavirus T ype NL63 (PCR)) NOT DETECTED NOT DETECT [facility] HospitalFluoroscopic procedure less than one hour ljmbnmts8322-18-37 02:25:00* Test Item Value Reference Range Interpretation Comments Coronavirus Type OC43 (PCR) (test code = Coronavirus T ype OC43 (PCR)) NOT DETECTED NOT DETECT [facility] Hospitaltreptococcus pyogenes antigen detection in tynkea5234-68-83 02:25:00* Test Item Value Reference Range Interpretation Comments Group A Streptococcus Screen (test code = 13515-1) NEGATIVE NEG ATIVE [facility] HospitalInfluenza virus A and B antigen identification by vtmbsjhcqpekimbyqf2763-88-03 02:25:00* Test Item Value Reference Range Interpretation Comments Influenza Virus Types A,B Antigen (test code = 75302-6) NEGATIVE NEGATIVE [facility] HospitalFluoroscopic procedure less than one hour umthvsww7068-60-66 02:25:00* Test Item Value Reference Range Interpretation Comments Chlamydia pneumoniae DNA (PCR) (test code = Chlamydia pneumoniae DNA (PCR)) NOT DETECTED NOT DETECT [facility] HospitalRespiratory virus hxldu6197-68-78 02:25:00* Test Item Value Reference Range Interpretation Comments Influenza Type A (RT-PCR) (test code = 400595134) NOT DETECTED NOT DETECT [facility] HospitalFluoroscopic procedure less than one hour iyiscxjl3296-52-57 02:25:00* Test Item Value Reference Range Interpretation Comments Mycoplasma pneumoniae (PCR) (test code = Mycoplasma pn eumoniae (PCR)) NOT DETECTED NOT DETECT [facility] HospitalRespiratory virus ibdje0814-14-98 02:25:00* Test Item Value Reference Range Interpretation Comments Influenza Type B (RT-PCR) (test code = 918158910) NOT DETECTED NOT DETECT [facility] HospitalRespiratory virus yxkoj6923-19-23 02:25:00* Test Item Value Reference Range Interpretation Comments Respiratory Syncytial Virus (PCR) (test code = 282944955) NO T DETECTED NOT DETECT [facility] HospitalRespiratory virus qkwdg8707-34-51 02:25:00* Test Item Value Reference Range Interpretation Comments Bordetella pertussis DNA (PCR) (test code = 851877008) NOT DETEC [place] NOT DETECT [facility] HospitalRespiratory virus vkoqa8917-54-42 02:25:00* Test Item Value Reference Range Interpretation Comments Parainfluenza Type 1 (PCR) (test code = 630164530) NOT DETECTED NOT DETECT [facility] HospitalRespiratory virus vefmb7519-09-82 02:25:00* Test Item Value Reference Range Interpretation Comments Parainfluenza Type 2 (PCR) (test code = 422184509) NOT DETECTED NOT DETECT [facility] HospitalRespiratory virus ghreq5628-74-23 02:25:00* Test Item Value Reference Range Interpretation Comments Parainfluenza Type 3 (PCR) (test code = 504512155) NOT DETECTED NOT DETECT [facility]Flu[facility]oscopic procedure less than one hour aijpmhok2436-16-22 02:25:00* Test Item Value Reference Range Interpretation Comments Parainfluenza Type 4 (PCR) (test code = Parainfluenza Type 4 (PCR)) NOT DETECTED NOT DETECT [facility] HospitalRespiratory virus xbdpt3266-60-96 02:25:00* Test Item Value Reference Range Interpretation Comments Rhinovirus (PCR) (test code = 316665280) NOT DETECTED NOT DETECT [facility] cjjeu7932-16-91 02:25:00* Test Item Value Reference Range Interpretation Comments Human Metapneumovirus (PCR) (test code = 532243106) NOT DETECTED NO T DETECT [facility] HospitalRespiratory virus rylpo6834-15-06 02:25:00* Test Item Value Reference Range Interpretation Comments Adenovirus (PCR) (test code = 473643355) NOT DETECTED NOT DETECT [facility] CenterFluoroscopic procedure less than one hour ibjrdajp5853-54-30 02:25:00* Test Item Value Reference Range Interpretation [...] management decisions. This sample was tested at [facility] using the [employer] ray Respiratory Panel. It is FDA cleared and has been verified and approved by [facility]tt [facility] for clinical use on nasopharyngeal swa b specimens.ALL RESPIRATORY VIRAL PANEL Testing performed at [address] [address]PVL HAVE BEEN CALLED TO THE [place]izwana RAGSDALERUDDYAMANDABaylor [facility] DentonFluoroscopic procedure less than one hour vnllyddv6935-20-21 02:25:00* Test Item Value Reference Range Interpretation Comments Coronavirus Type HKU1 (PCR) (test code = Coronavirus T ype HKU1 (PCR)) NOT DETECTED NOT DETECT [facility] HospitalFluoroscopic procedure less than one hour rrxiwrds3196-25-66 02:25:00* Test Item Value Reference Range Interpretation Comments Coronavirus Type NL63 (PCR) (test code = Coronavirus T ype NL63 (PCR)) NOT DETECTED NOT DETECT [facility] HospitalFluoroscopic procedure less than one hour wvoijgbw8148-31-23 02:25:00* Test Item Value Reference Range Interpretation Comments Coronavirus Type OC43 (PCR) (test code = Coronavirus T ype OC43 (PCR)) NOT DETECTED NOT DETECT [facility] Hospitaltreptococcus pyogenes antigen detection in bolaab7356-84-84 02:25:00* Test Item Value Reference Range Interpretation Comments Group A Streptococcus Screen (test code = 85911-0) NEGATIVE NEG ATIVE [facility] HospitalUrine color cnpyscackhzkh5609-49-57 02:20:00* Test Item Value Reference Range Interpretation Comments Urine Color (test code = 5778-6) ASHISH YELLOW [facility] HospitalUrine tnmlzug2593-58-14 02:20:00* Test Item Value Reference Range Interpretation Comments Urine Clarity (test code = 16123-8) HAZY CLEAR [facility] Hospitalpecific gravity of Urine by Test strip 2019-08-13 02:20:00* Test Item Value Reference Range Interpretation Comments Urine Specific [place] (test code = 5811-5) 1.030 1.010-1.02 5 [facility] HospitalUrine pH measurement by automated test vpbnu4150-20-96 02:20:00* Test Item Value Reference Range Interpretation Comments Urine pH (test code = 44592-8) 6 5-7 [facility] HospitalUrine leukocyte esterase detection by aotzxdoj2598-77-84 02:20:00* Test Item Value Reference Range Interpretation Comments Urine Leukocyte Esterase (test code = 5799-2) NEGATIVE NEGATIVE [facility] HospitalUrine nitrite vwxgjjoeo2292-53-54 02:20:00* Test Item Value Reference Range Interpretation Comments Urine Nitrite (test code = 05778-3) NEGATIVE NEGATIVE [facility] HospitalUrine protein measurement by test strip (mass/volume)2019-08-13 02:20:00* Test Item Value Reference Range Interpretation Comments Urine Protein (test code = 5804-0) 2+ NEGATIVE [facility] HospitalUrine glucose ccmkckmrd3130-20-88 02:20:00* Test Item Value Reference Range Interpretation Comments Urine Glucose (UA) (test code = 2349-9) NEGATIVE NEGATIVE [facility] HospitalUrine ketones detection by automated test hpzys6931-42-51 02:20:00* Test Item Value Reference Range Interpretation Comments Urine Ketones (test code = 68782-4) NEGATIVE NEGATIVE [facility] HospitalUrine urobilinogen measurement by test strip (mass/volume)2019-08-13 02:20:00* Test Item Value Reference Range Interpretation Comments Urine Urobilinogen (test code = 06925-5) 1 0.2-1 [facility] HospitalUrine total bilirubin measurement (mass/volume)2019-08-13 02:20:00* Test Item Value Reference Range Interpretation Comments Urine Bilirubin (test code = 1978-6) NEGATIVE NEGATIVE [facility] HospitalUrine erythrocytes glywtunxe6505-70-09 02:20:00* Test Item Value Reference Range Interpretation Comments Urine Blood (test code = 17724-0) NEGATIVE NEGATIVE [facility] HospitalAutomated urine sediment leukocyte count by microscopy (number/high power field)2019-08-13 02:20:00* Test Item Value Reference Range Interpretation Comments Urine WBC (test code = 5821-4) 0-5 0-5 [facility] HospitalErythrocytes detection in urine sediment by light mrhxlkkrtx4290-79-86 02:20:00* Test Item Value Reference Range Interpretation Comments Urine RBC (test code = 79060-4) NONE 0-5 [facility] HospitalBacteria detection in urine sediment by light hgoqrxsplb7792-52-84 02:20:00* Test Item Value Reference Range Interpretation Comments Urine Bacteria (test code = 65248-3) FEW NONE [facility] HospitalEpithelial cells detection in urine sediment by light mvwzmuplmj3530-09-59 02:20:00* Test Item Value Reference Range Interpretation Comments Urine Epithelial Cells (test code = 02447-5) FEW NONE [facility] HospitalActivated Partial Thromboplast Time 2019-08-13 02:10:00* Test Item Value Reference Range Interpretation Comments Activated Partial Thromboplast Time (test code = 60290-5) 32.7 23.8-35.5 [facility] HospitalArterial Blood rO2496-19-06 02:09:00* Test Item Value Reference Range Interpretation Comments Arterial Blood pH (test code = 2744-1) 7.49 7.31-7.41 H [facility] HospitalArterial Blood Partial Pressure CO2 2019-08-13 02:09:00* Test Item Value Reference Range Interpretation Comments Arterial Blood Partial Pressure CO2 (test code = 2019-8) 32 35-45 L [facility] HospitalArterial Blood AWK83970-09-39 02:09:00* Test Item Value Reference Range Interpretation Comments Arterial Blood HCO3 (test code = 1960-4) 25 23-28 [facility] HospitalArterial Blood Base Uixjmi0998-65-28 02:09:00* Test Item Value Reference Range Interpretation Comments Arterial Blood Base Excess (test code = 1925-7) 1.0 -2-3 [facility] HospitalFiO22020-04-04 02:09:00* Test Item Value Reference Range Interpretation Comments FiO2 (test code = FiO2) 80 40 VENTURI SET UPMem[facility] HospitalFluoroscopic procedure less than one hour hcoqvxzx2144-57-97 02:00:00* Test Item Value Reference Range Interpretation [...] Pathology Laboratories are certified under the C [facility] regionical Laboratory Improvement Amendments of 1988 (CLIA), 42 U.S.C. section 263a , to perform high complexity tests.Specimen sent to [facility] and testing performed by [facility] [address] [place] [address] [phone] Director: Jose Alberto M.D.CLIA # 4 [id number] [facility] CenterFluoroscopic procedure less than one hour zsjnjhfw3144-00-33 02:00:00* Test Item Value Reference Range Interpretation [...] to perform high complexity tests.Specimen sent to [facility] and testing performed by [facility] [address] [place] [address] [phone] Director: Jose Alberto M.D.CLIA # 4 [id number] [facility] CenterFluoroscopic procedure less than one hour pqkrdabp1766-05-47 02:00:00* Test Item Value Reference Range Interpretation [...] to perform high complexity tests.Specimen sent to [facility] and testing performed by [facility] [address] [place] [address] [phone] Director: Jose Alberto M.D.CLIA # 4 [id number] [facility] CenterFluoroscopic procedure less than one hour uyjrwnji2230-74-57 02:00:00* Test Item Value Reference Range Interpretation [...] to perform high complexity tests.Specimen sent to [facility] and testing performed by [facility] [address] [place] [address] [phone] Director: Jose Alberto M.D.CLIA # 4 [id number] [facility] CenterFluoroscopic procedure less than one hour wimnkilk6099-55-15 02:00:00* Test Item Value Reference Range Interpretation [...] to perform high complexity tests.Specimen sent to [facility] and testing performed by Clinical Path[facility] [address] [place] [address] [phone] Director: Jose Alberto M.D.CLIA # 4 [id number] [facility]ann [facility] HospitalArterial blood pH measurement 2019-08-13 01:40:00* Test Item Value Reference Range Interpretation Comments Arterial Blood pH (test code = 2744-1) 7.49 7.31-7.41 [facility] HospitalpCO2 AeyU5930-20-96 01:40:00* Test Item Value Reference Range Interpretation Comments Arterial Blood Partial Pressure CO2 (test code = 2019-8) 32 35-45 [facility] HospitalArterial blood bicarbonate measurement (moles/volume)2019-08-13 01:40:00* Test Item Value Reference Range Interpretation Comments Arterial Blood HCO3 (test code = 1960-4) 25 23-28 [facility] HospitalArterial blood base excess by calculation 2019-08-13 01:40:00* Test Item Value Reference Range Interpretation Comments Arterial Blood Base Excess (test code = 1925-7) 1.0 -2-3 [facility] HospitalFluoroscopic procedure less than one hour mxfxmymc4321-53-10 01:40:00* Test Item Value Reference Range Interpretation Comments FiO2 (test code = FiO2) 80 40 VENTURI SET [facility]Ar[facility] pH zvronifyzxv1879-10-03 01:40:00* Test Item Value Reference Range Interpretation Comments Arterial Blood pH (test code = 2744-1) 7.49 7.31-7.41 [facility] HospitalpCO2 IkmS9129-73-66 01:40:00* Test Item Value Reference Range Interpretation Comments Arterial Blood Partial Pressure CO2 (test code = 2019-8) 32 35-45 [facility] HospitalArterial blood bicarbonate measurement (moles/volume)2019-08-13 01:40:00* Test Item Value Reference Range Interpretation Comments Arterial Blood HCO3 (test code = 1960-4) 25 23-28 [facility] HospitalArterial blood base excess by calculation 2019-08-13 01:40:00* Test Item Value Reference Range Interpretation Comments Arterial Blood Base Excess (test code = 1925-7) 1.0 -2-3 [facility] HospitalFluoroscopic procedure less than one hour qaoyegdv5021-07-35 01:40:00* Test Item Value Reference Range Interpretation Comments FiO2 (test code = FiO2) 80 40 V[facility] SET [facility] [facility] WorthArter[facility] blood pH irjqppkwjvg6620-33-41 01:40:00* Test Item Value Reference Range Interpretation Comments Arterial Blood pH (test code = 2744-1) 7.49 7.31-7.41 [facility] EkbR1571-81-88 01:40:00* Test Item Value Reference Range Interpretation Comments Arterial Blood Partial Pressure CO2 (test code = 2018-8) 32 35-45 [facility] HospitalArterial blood bicarbonate measurement (moles/volume)2019-08-13 01:40:00* Test Item Value Reference Range Interpretation Comments Arterial Blood HCO3 (test code = 1960-4) 25 23-28 [facility] HospitalArterial blood base excess by calculation 2019-08-13 01:40:00* Test Item Value Reference Range Interpretation Comments Arterial Blood Base Excess (test code = 1925-7) 1.0 -2-3 [facility] HospitalFluoroscopic procedure less than one hour qibfscma3842-30-73 01:40:00* Test Item Value Reference Range Interpretation Comments FiO2 (test code = FiO2) 80 40 VENTURI SET [facility]Ar[facility] pH bcosjjkckfy1406-27-57 01:40:00* Test Item Value Reference Range Interpretation Comments Arterial Blood pH (test code = 2744-1) 7.49 7.31-7.41 [facility] HospitalpCO2 [id number] 01:40:00* Test Item Value Reference Range Interpretation Comments Arterial Blood Partial Pressure CO2 (test code = 2018-8) 32 35-45 [facility] HospitalArterial blood bicarbonate measurement (moles/volume)2019-08-13 01:40:00* Test Item Value Reference Range Interpretation Comments Arterial Blood HCO3 (test code = 1960-4) 25 23-28 [facility] HospitalArterial blood base excess by calculation 2019-08-13 01:40:00* Test Item Value Reference Range Interpretation Comments Arterial Blood Base Excess (test code = 1925-7) 1.0 -2-3 [facility] HospitalFluoroscopic procedure less than one hour [id number] 01:40:00* Test Item Value Reference Range Interpretation Comments FiO2 (test code = FiO2) 80 40 VENTURI SET [facility]Ar[facility] blood pH vnqguoyngwf1543-38-61 01:40:00* Test Item Value Reference Range Interpretation Comments Arterial Blood pH (test code = 2744-1) 7.49 7.31-7.41 [facility] HospitalpCO2 XkzK1645-60-65 01:40:00* Test Item Value Reference Range Interpretation Comments Arterial Blood Partial Pressure CO2 (test code = 2019-8) 32 35-45 [facility] HospitalArterial blood bicarbonate measurement (moles/volume)2019-08-13 01:40:00* Test Item Value Reference Range Interpretation Comments Arterial Blood HCO3 (test code = 1960-4) 25 23-28 [facility] HospitalArterial blood base excess by calculation 2019-08-13 01:40:00* Test Item Value Reference Range Interpretation Comments Arterial Blood Base Excess (test code = 1925-7) 1.0 -2-3 [facility] HospitalFluoroscopic procedure less than one hour kgbgsiix1562-16-56 01:40:00* Test Item Value Reference Range Interpretation Comments FiO2 (test code = FiO2) 80 40 VENTURI SET [facility] HospitalActivated partial thromboplastin time (aPTT) in platelet poor plasma by coagulation assay 2019-08-13 01:25:00* Test Item Value Reference Range Interpretation Comments Activated Partial Thromboplast Time (test code = 87691-8) 32.7 23.8-35.5 [facility] HospitalInfluenza virus A and B antigen identification by kvkjdqgktliozxwqws3655-79-39 01:25:00* Test Item Value Reference Range Interpretation Comments Influenza Virus Types A,B Antigen (test code = 12421-0) NEGATIVE NEGATIVE [facility] HospitalFluoroscopic procedure less than one hour dhqteupr1633-52-13 01:25:00* Test Item Value Reference Range Interpretation Comments Chlamydia pneumoniae DNA (PCR) (test code = Chlamydia pneumoniae DNA (PCR)) NOT DETECTED NOT DETECT [facility] HospitalRespiratory virus sbzbw6781-63-43 01:25:00* Test Item Value Reference Range Interpretation Comments Influenza Type A (RT-PCR) (test code = 828097105) NOT DETECTED NOT DETECT [facility] HospitalFluoroscopic procedure less than one hour hnxsippj2563-93-70 01:25:00* Test Item Value Reference Range Interpretation Comments Mycoplasma pneumoniae (PCR) (test code = Mycoplasma pn eumoniae (PCR)) NOT DETECTED NOT DETECT [facility] HospitalRespiratory virus xlfad5785-10-70 01:25:00* Test Item Value Reference Range Interpretation Comments Influenza Type B (RT-PCR) (test code = 460016396) NOT DETECTED NOT DETECT [facility] HospitalRespiratory virus kjmxn7084-92-01 01:25:00* Test Item Value Reference Range Interpretation Comments Respiratory Syncytial Virus (PCR) (test code = 008821408) NO T DETECTED NOT DETECT [facility] HospitalRespiratory virus hhikg4463-02-37 01:25:00* Test Item Value Reference Range Interpretation Comments Bordetella pertussis DNA (PCR) (test code = 718079237) NOT DETEC MITCHELL NOT DETECT [facility] HospitalRespiratory virus lfbyz5081-34-54 01:25:00* Test Item Value Reference Range Interpretation Comments Parainfluenza Type 1 (PCR) (test code = 751137591) NOT DETECTED NOT DETECT [facility] HospitalRespiratory virus pdahy6428-17-89 01:25:00* Test Item Value Reference Range Interpretation Comments Parainfluenza Type 2 (PCR) (test code = 736805239) NOT DETECTED NOT DETECT [facility] HospitalRespiratory virus dpjih4171-46-47 01:25:00* Test Item Value Reference Range Interpretation Comments Parainfluenza Type 3 (PCR) (test code = 049453205) NOT DETECTED NOT DETECT [facility] HospitalFluoroscopic procedure less than one hour fmqvwakn7888-18-30 01:25:00* Test Item Value Reference Range Interpretation Comments Parainfluenza Type 4 (PCR) (test code = Parainfluenza Type 4 (PCR)) NOT DETECTED NOT DETECT [facility] kxlip5902-91-91 01:25:00* Test Item Value Reference Range Interpretation Comments Rhinovirus (PCR) (test code = 858649788) NOT DETECTED NOT DETECT [facility] HospitalRespiratory virus bkhik5719-48-90 01:25:00* Test Item Value Reference Range Interpretation Comments Human Metapneumovirus (PCR) (test code = 345553775) NOT DETECTED NO T DETECT [facility] HospitalRespiratory virus nvcpb3747-57-83 01:25:00* Test Item Value Reference Range Interpretation Comments Adenovirus (PCR) (test code = 394532202) NOT DETECTED NOT DETECT [facility] HospitalFluoroscopic procedure less than one hour cxacvjmz0015-28-08 01:25:00* Test Item Value Reference Range Interpretation [...] management decisions. This sample was tested at [facility] using the [employer] Respiratory Panel. It is FDA cleared and has been verified and approved by t [facility] for clinical use on nasopharyngeal swa b specimens.ALL RESPIRATORY VIRAL PANEL Testing performed at [place], [place] [address]RESULTS HAVE BEEN CALLED [facility] HospitalFluoroscopic procedure less than one hour qnsscozk6767-60-94 01:25:00* Test Item Value Reference Range Interpretation Comments Coronavirus Type HKU1 (PCR) (test code = Coronavirus T ype HKU1 (PCR)) NOT DETECTED NOT DETECT [facility] HospitalFluoroscopic procedure less than one hour xhsntuwj5719-82-46 01:25:00* Test Item Value Reference Range Interpretation Comments Coronavirus Type NL63 (PCR) (test code = Coronavirus T ype NL63 (PCR)) NOT DETECTED NOT DETECT [facility] HospitalFluoroscopic procedure less than one hour olqbcjna3574-40-02 01:25:00* Test Item Value Reference Range Interpretation Comments Coronavirus Type OC43 (PCR) (test code = Coronavirus T ype OC43 (PCR)) NOT DETECTED NOT DETECT [facility] antigen detection in yuezev1169-47-19 01:25:00* Test Item Value Reference Range Interpretation Comments Group A Streptococcus Screen (test code = 02564-1) NEGATIVE NEG ATIVE [facility] HospitalBlood tgkqgcw6532-64-17 01:25:00* Test Item Value Reference Range Interpretation Comments Blood Culture (test code = 87218061) NO GROWTH AFTER 5 DAYS, FINAL REPORT [facility] HospitalInfluenza virus A and B antigen identification by jtipamkilcixwleiyq3421-33-28 01:25:00* Test Item Value Reference Range Interpretation Comments Influenza Virus Types A,B Antigen (test code = 25146-7) NEGATIVE NEGATIVE [facility] HospitalFluoroscopic procedure less than one hour jsokrvts4401-08-50 01:25:00* Test Item Value Reference Range Interpretation Comments Chlamydia pneumoniae DNA (PCR) (test code = Chlamydia pneumoniae DNA (PCR)) NOT DETECTED NOT DETECT [facility] HospitalRespiratory virus qkggv2486-59-20 01:25:00* Test Item Value Reference Range Interpretation Comments Influenza Type A (RT-PCR) (test code = 402255847) NOT DETECTED NOT DETECT [facility] HospitalFluoroscopic procedure less than one hour vruotfmf2923-60-21 01:25:00* Test Item Value Reference Range Interpretation Comments Mycoplasma pneumoniae (PCR) (test code = Mycoplasma pn eumoniae (PCR)) NOT DETECTED NOT DETECT [facility] HospitalRespiratory virus iqtyk4275-82-08 01:25:00* Test Item Value Reference Range Interpretation Comments Influenza Type B (RT-PCR) (test code = 047209476) NOT DETECTED NOT DETECT [facility] HospitalRespiratory virus rxslx6603-40-11 01:25:00* Test Item Value Reference Range Interpretation Comments Respiratory Syncytial Virus (PCR) (test code = 445627880) NO T DETECTED NOT DETECT [facility] CenterRes[facility] virus jnvih8269-37-20 01:25:00* Test Item Value Reference Range Interpretation Comments Bordetella pertussis DNA (PCR) (test code = 660410262) NOT DETEC [place]CHELL NOT DETECT [facility] HospitalRespiratory virus fzogd1473-74-02 01:25:00* Test Item Value Reference Range Interpretation Comments Parainfluenza Type 1 (PCR) (test code = 778362343) NOT DETECTED NOT DETECT [facility] HospitalRespiratory virus fidlx8308-04-02 01:25:00* Test Item Value Reference Range Interpretation Comments Parainfluenza Type 2 (PCR) (test code = 758380999) NOT DETECTED NOT DETECT [facility] HospitalRespiratory virus bcfmh3678-19-04 01:25:00* Test Item Value Reference Range Interpretation Comments Parainfluenza Type 3 (PCR) (test code = 912521723) NOT DETECTED NOT DETECT [facility] HospitalFluoroscopic procedure less than one hour ogkirtgd8804-65-94 01:25:00* Test Item Value Reference Range Interpretation Comments Parainfluenza Type 4 (PCR) (test code = Parainfluenza Type 4 (PCR)) NOT DETECTED NOT DETECT [facility] HospitalRespiratory virus cnpnk9913-72-40 01:25:00* Test Item Value Reference Range Interpretation Comments Rhinovirus (PCR) (test code = 574855220) NOT DETECTED NOT DETECT [facility] HospitalRespiratory virus hgtsu9195-21-71 01:25:00* Test Item Value Reference Range Interpretation Comments Human Metapneumovirus (PCR) (test code = 434175061) NOT DETECTED NO T DETECT [facility] HospitalRespiratory virus afhjb8791-40-58 01:25:00* Test Item Value Reference Range Interpretation Comments Adenovirus (PCR) (test code = 413998470) NOT DETECTED NOT DETECT [facility] HospitalFluoroscopic procedure less than one hour aixpxdmy0811-10-28 01:25:00* Test Item Value Reference Range Interpretation [...] management decisions. This sample was tested at [facility] using the [employer] Respiratory Panel. It is FDA cleared and has been verified and approved by [facility] for clinical use on nasopharyngeal swa b specimens.ALL RESPIRATORY VIRAL PANEL Testing performed at [address] [address]TFETOTY HAVE BEEN CALLED TO THE [place] [facility] CenterFluoroscopic procedure less than one hour mmeugojc6593-77-75 01:25:00* Test Item Value Reference Range Interpretation Comments Coronavirus Type HKU1 (PCR) (test code = Coronavirus T ype HKU1 (PCR)) NOT DETECTED NOT DETECT [facility] HospitalFluoroscopic procedure less than one hour jaqmjcqe3667-43-96 01:25:00* Test Item Value Reference Range Interpretation Comments Coronavirus Type NL63 (PCR) (test code = Coronavirus T ype NL63 (PCR)) NOT DETECTED NOT DETECT [facility] HospitalFluoroscopic procedure less than one hour rhucqebo6526-93-48 01:25:00* Test Item Value Reference Range Interpretation Comments Coronavirus Type OC43 (PCR) (test code = Coronavirus T ype OC43 (PCR)) NOT DETECTED NOT DETECT [facility] Hospitaltreptococcus pyogenes antigen detection in ikmyew9214-01-61 01:25:00* Test Item Value Reference Range Interpretation Comments Group A Streptococcus Screen (test code = 98862-7) NEGATIVE NEG ATIVE [facility] HospitalBlood trdelue7929-69-59 01:25:00* Test Item Value Reference Range Interpretation Comments Blood Culture (test code = 01348796) NO GROWTH AFTER 5 DAYS, FINAL REPORT [facility] HospitalInfluenza virus A and B antigen identification by nnfmuxzjnvfzyxxbcd2143-40-58 01:25:00* Test Item Value Reference Range Interpretation Comments Influenza Virus Types A,B Antigen (test code = 01480-5) NEGATIVE NEGATIVE [facility] HospitalFluoroscopic procedure less than one hour amhhlbtt6148-67-58 01:25:00* Test Item Value Reference Range Interpretation Comments Chlamydia pneumoniae DNA (PCR) (test code = Chlamydia pneumoniae DNA (PCR)) NOT DETECTED NOT DETECT [facility] HospitalRespiratory virus rhtjq0814-12-59 01:25:00* Test Item Value Reference Range Interpretation Comments Influenza Type A (RT-PCR) (test code = 165294768) NOT DETECTED NOT DETECT [facility] HospitalFluoroscopic procedure less than one hour jxkbcgan8224-37-10 01:25:00* Test Item Value Reference Range Interpretation Comments Mycoplasma pneumoniae (PCR) (test code = Mycoplasma pn eumoniae (PCR)) NOT DETECTED NOT DETECT [facility] HospitalRespiratory virus threq5660-74-02 01:25:00* Test Item Value Reference Range Interpretation Comments Influenza Type B (RT-PCR) (test code = 952090854) NOT DETECTED NOT DETECT [facility] HospitalRespiratory virus dlqce7155-77-60 01:25:00* Test Item Value Reference Range Interpretation Comments Respiratory Syncytial Virus (PCR) (test code = 143946902) NO T DETECTED NOT DETECT [facility] HospitalRespiratory virus wgwvx4249-19-18 01:25:00* Test Item Value Reference Range Interpretation Comments Bordetella pertussis DNA (PCR) (test code = 028524165) NOT DETEC MITCHELL NOT DETECT [facility] HospitalRespiratory virus puwvl4695-71-57 01:25:00* Test Item Value Reference Range Interpretation Comments Parainfluenza Type 1 (PCR) (test code = 808170226) NOT DETECTED NOT DETECT [facility] HospitalRespiratory virus wtkqh4270-56-16 01:25:00* Test Item Value Reference Range Interpretation Comments Parainfluenza Type 2 (PCR) (test code = 703620203) NOT DETECTED NOT DETECT [facility] HospitalRespiratory virus sgrll4517-53-05 01:25:00* Test Item Value Reference Range Interpretation Comments Parainfluenza Type 3 (PCR) (test code = 665050396) NOT DETECTED NOT DETECT [facility] HospitalFluoroscopic procedure less than one hour mczxgqqw4579-84-43 01:25:00* Test Item Value Reference Range Interpretation Comments Parainfluenza Type 4 (PCR) (test code = Parainfluenza Type 4 (PCR)) NOT DETECTED NOT DETECT [facility] HospitalRespiratory virus igkja0484-54-02 01:25:00* Test Item Value Reference Range Interpretation Comments Rhinovirus (PCR) (test code = 696035594) NOT DETECTED NOT DETECT [facility] HospitalRespiratory virus vdtab3002-00-24 01:25:00* Test Item Value Reference Range Interpretation Comments Human Metapneumovirus (PCR) (test code = 242321535) NOT DETECTED NO T DETECT [facility] HospitalRespiratory virus qvpyu8492-31-70 01:25:00* Test Item Value Reference Range Interpretation Comments Adenovirus (PCR) (test code = 832796853) NOT DETECTED NOT DETECT [facility] HospitalFluoroscopic procedure less than one hour sbdsuako3787-59-89 01:25:00* Test Item Value Reference Range Interpretation [...] management decisions. This sample was tested at [facility] using the [employer] Respiratory Panel. It is FDA cleared and has been verified and approved by t [facility] for clinical use on nasopharyngeal swa b specimens.ALL RESPIRATORY VIRAL PANEL Testing performed at [address] [address]XLQGBMD [facility] BEEN [facility]ED [facility] zloyjjce6487-72-80 01:25:00* Test Item Value Reference Range Interpretation Comments Coronavirus Type HKU1 (PCR) (test code = Coronavirus T ype HKU1 (PCR)) NOT DETECTED NOT DETECT [facility] HospitalFluoroscopic procedure less than one hour bjimrzax8911-79-82 01:25:00* Test Item Value Reference Range Interpretation Comments Coronavirus Type NL63 (PCR) (test code = Coronavirus T ype NL63 (PCR)) NOT DETECTED NOT DETECT [facility] HospitalFluoroscopic procedure less than one hour pwhbavtx0475-81-25 01:25:00* Test Item Value Reference Range Interpretation Comments Coronavirus Type OC43 (PCR) (test code = Coronavirus T ype OC43 (PCR)) NOT DETECTED NOT DETECT [facility] Hospitaltreptococcus pyogenes antigen detection in telcod9376-12-35 01:25:00* Test Item Value Reference Range Interpretation Comments Group A Streptococcus Screen (test code = 31612-6) NEGATIVE NEG ATIVE [facility] HospitalInfluenza virus A and B antigen identification by fpaajjedbcawvqfuns0266-23-74 01:25:00* Test Item Value Reference Range Interpretation Comments Influenza Virus Types A,B Antigen (test code = 30548-2) NEGATIVE NEGATIVE [facility] HospitalFluoroscopic procedure less than one hour tpzznpbl0667-10-28 01:25:00* Test Item Value Reference Range Interpretation Comments Chlamydia pneumoniae DNA (PCR) (test code = Chlamydia pneumoniae DNA (PCR)) NOT DETECTED NOT DETECT [facility] HospitalRespiratory virus egrib9384-85-56 01:25:00* Test Item Value Reference Range Interpretation Comments Influenza Type A (RT-PCR) (test code = 399771150) NOT DETECTED NOT DETECT [facility] HospitalFluoroscopic procedure less than one hour sqcvgovb1047-79-70 01:25:00* Test Item Value Reference Range Interpretation Comments Mycoplasma pneumoniae (PCR) (test code = Mycoplasma pn eumoniae (PCR)) NOT DETECTED NOT DETECT [facility] HospitalRespiratory virus cnqit1343-68-15 01:25:00* Test Item Value Reference Range Interpretation Comments Influenza Type B (RT-PCR) (test code = 919289659) NOT DETECTED NOT DETECT [facility] HospitalRespiratory virus pxfwm9638-54-34 01:25:00* Test Item Value Reference Range Interpretation Comments Respiratory Syncytial Virus (PCR) (test code = 166424444) NO T DETECTED NOT DETECT [facility] HospitalRespiratory virus nwktu6338-55-66 01:25:00* Test Item Value Reference Range Interpretation Comments Bordetella pertussis DNA (PCR) (test code = 603533628) NOT DETEC [place]CHELL NOT DETECT [facility] HospitalRespiratory virus vlwzm3963-36-44 01:25:00* Test Item Value Reference Range Interpretation Comments Parainfluenza Type 1 (PCR) (test code = 279536273) NOT DETECTED NOT DETECT [facility] HospitalRespiratory virus samxa2775-37-98 01:25:00* Test Item Value Reference Range Interpretation Comments Parainfluenza Type 2 (PCR) (test code = 776818538) NOT DETECTED NOT DETECT [facility] HospitalRespiratory virus zbabx8904-65-60 01:25:00* Test Item Value Reference Range Interpretation Comments Parainfluenza Type 3 (PCR) (test code = 838710068) NOT DETECTED NOT DETECT [facility] HospitalFluoroscopic procedure less than one hour kpnzylll9274-85-76 01:25:00* Test Item Value Reference Range Interpretation Comments Parainfluenza Type 4 (PCR) (test code = Parainfluenza Type 4 (PCR)) NOT DETECTED NOT DETECT [facility] HospitalRespiratory virus kddrr0018-59-80 01:25:00* Test Item Value Reference Range Interpretation Comments Rhinovirus (PCR) (test code = 283229911) NOT DETECTED NOT DETECT [facility] HospitalRespiratory virus upzdm5550-24-16 01:25:00* Test Item Value Reference Range Interpretation Comments Human Metapneumovirus (PCR) (test code = 755580754) NOT DETECTED NO T DETECT [facility] HospitalRespiratory virus xrgau7768-12-33 01:25:00* Test Item Value Reference Range Interpretation Comments Adenovirus (PCR) (test code = 192288881) NOT DETECTED NOT DETECT [facility] HospitalFluoroscopic procedure less than one hour npmiwsnh3649-48-12 01:25:00* Test Item Value Reference Range Interpretation [...] management decisions. This sample was tested at [facility] using the [employer] Respiratory Panel. It is FDA cleared and has been verified and approved by [facility] for clinical use on nasopharyngeal swa b specimens.ALL RESPIRATORY VIRAL PANEL Testing performed at [address] [address]MFOTDJH HAVE BEEN CALLED TO THE [place] [facility] CenterFluoroscopic procedure less than one hour dsqcnuff6741-34-90 01:25:00* Test Item Value Reference Range Interpretation Comments Coronavirus Type HKU1 (PCR) (test code = Coronavirus T ype HKU1 (PCR)) NOT DETECTED NOT DETECT [facility] HospitalFluoroscopic procedure less than one hour dfnkxkud0129-03-06 01:25:00* Test Item Value Reference Range Interpretation Comments Coronavirus Type NL63 (PCR) (test code = Coronavirus T ype NL63 (PCR)) NOT DETECTED NOT DETECT [facility] HospitalFluoroscopic procedure less than one hour hewixtqc2258-05-30 01:25:00* Test Item Value Reference Range Interpretation Comments Coronavirus Type OC43 (PCR) (test code = Coronavirus T ype OC43 (PCR)) NOT DETECTED NOT DETECT [facility] Hospitaltreptococcus pyogenes antigen detection in jnsvcg2909-22-67 01:25:00* Test Item Value Reference Range Interpretation Comments Group A Streptococcus Screen (test code = 46381-6) NEGATIVE NEG ATIVE [facility] HospitalInfluenza virus A and B antigen identification by nwllflwehaotzfaigs4776-89-24 01:25:00* Test Item Value Reference Range Interpretation Comments Influenza Virus Types A,B Antigen (test code = 37192-0) NEGATIVE NEGATIVE [facility] HospitalFluoroscopic procedure less than one hour xqvwuzyx9608-85-64 01:25:00* Test Item Value Reference Range Interpretation Comments Chlamydia pneumoniae DNA (PCR) (test code = Chlamydia pneumoniae DNA (PCR)) NOT DETECTED NOT DETECT [facility] HospitalRespiratory virus mzzlm2469-67-39 01:25:00* Test Item Value Reference Range Interpretation Comments Influenza Type A (RT-PCR) (test code = 479236435) NOT DETECTED NOT DETECT [facility] HospitalFluoroscopic procedure less than one hour hotgafvw2820-96-45 01:25:00* Test Item Value Reference Range Interpretation Comments Mycoplasma pneumoniae (PCR) (test code = Mycoplasma pn eumoniae (PCR)) NOT DETECTED NOT DETECT [facility] HospitalRespiratory virus cwmyi7932-63-53 01:25:00* Test Item Value Reference Range Interpretation Comments Influenza Type B (RT-PCR) (test code = 235311404) NOT DETECTED NOT DETECT [facility] qbbrp7738-44-59 01:25:00* Test Item Value Reference Range Interpretation Comments Respiratory Syncytial Virus (PCR) (test code = 246838525) NO T DETECTED NOT DETECT [facility] [facility] [id number] 01:25:00* Test Item Value Reference Range Interpretation Comments Bordetella pertussis DNA (PCR) (test code = 431531268) NOT DETEC [facility] NOT DETECT [facility] [id number] 01:25:00* Test Item Value Reference Range Interpretation Comments Parainfluenza Type 1 (PCR) (test code = 662348283) NOT DETECTED NOT DETECT [facility] [id number] 01:25:00* Test Item Value Reference Range Interpretation Comments Parainfluenza Type 2 (PCR) (test code = 680499236) NOT DETECTED NOT DETECT [facility] [id number] 01:25:00* Test Item Value Reference Range Interpretation Comments Parainfluenza Type 3 (PCR) (test code = 013004656) NOT DETECTED NOT DETECT [facility] CenterFluoroscopic procedure less than one hour [id number] 01:25:00* Test Item Value Reference Range Interpretation Comments Parainfluenza Type 4 (PCR) (test code = Parainfluenza Type 4 (PCR)) NOT DETECTED NOT DETECT [facility] [id number] 01:25:00* Test Item Value Reference Range Interpretation Comments Rhinovirus (PCR) (test code = 119840054) NOT DETECTED NOT DETECT [facility] [id number] 01:25:00* Test Item Value Reference Range Interpretation Comments Human Metapneumovirus (PCR) (test code = 303257830) NOT DETECTED NO T DETECT [facility] [id number] 01:25:00* Test Item Value Reference Range Interpretation Comments Adenovirus (PCR) (test code = 370337484) NOT DETECTED NOT DETECT [facility] one hour [id number] 01:25:00* Test Item Value Reference Range Interpretation [...] management decisions. This sample was tested at [facility] using the [employer] Respiratory Panel. It is FDA cleared and has been verified and approved by t [facility] for clinical use on nasopharyngeal swa b specimens.ALL RESPIRATORY VIRAL PANEL Testing performed at [place], [place] [address]RESULTS HAVE BEEN CALLED TO [facility] HospitalFluoroscopic procedure less than one hour [id number] 01:25:00* Test Item Value Reference Range Interpretation Comments Coronavirus Type HKU1 (PCR) (test code = Coronavirus T ype HKU1 (PCR)) NOT DETECTED NOT DETECT [facility]Flu[facility] less than one hour [id number] 01:25:00* Test Item Value Reference Range Interpretation Comments Coronavirus Type NL63 (PCR) (test code = Coronavirus T ype NL63 (PCR)) NOT DETECTED NOT DETECT [facility] HospitalFlu[facility] less than one hour [id number] 01:25:00* Test Item Value Reference Range Interpretation Comments Coronavirus Type OC43 (PCR) (test code = Coronavirus T ype OC43 (PCR)) NOT DETECTED NOT DETECT [facility] detection in [id number] 01:25:00* Test Item Value Reference Range Interpretation Comments Group A Streptococcus Screen (test code = 98570-0) NEGATIVE NEG ATIVE [facility]
== END 2020-04-02 04:34 ==
LOC: ER 03:15
DX: Z43.1 Encounter for attention to gastrostomy (principal); Z87.820 Personal history of traumatic brain injury; Z91.5 Personal history of self-harm; E11.9 Type 2 diabetes mellitus without complications; D64.9 Anemia, unspecified; F41.9 Anxiety disorder, unspecified
CPT/HCPCS: 99283

== ENCOUNTER 2020-04-04 08:38 | Emergency (ER) | payer MEDICARE, OTHER ==
[~2020-04-04] VITALS: Ht 170.2 cm; Wt 52.2 kg
== END 2020-04-04 09:00 ==
LOC: ER 08:50
DX: Z43.1 Encounter for attention to gastrostomy (principal); G93.1 Anoxic brain damage, not elsewhere classified; Z87.820 Personal history of traumatic brain injury; Z91.5 Personal history of self-harm; E11.9 Type 2 diabetes mellitus without complications; D64.9 Anemia, unspecified; F41.9 Anxiety disorder, unspecified
CPT/HCPCS: 43762; 99282

== ENCOUNTER 2020-04-04 21:08 | Emergency (ER) | payer MEDICARE, OTHER ==
[~2020-04-04] VITALS: Ht 170.2 cm; Wt 52.2 kg
== END 2020-04-04 21:20 ==
LOC: ER 21:15
DX: Z43.1 Encounter for attention to gastrostomy (principal); Z87.820 Personal history of traumatic brain injury; Z91.5 Personal history of self-harm; E11.9 Type 2 diabetes mellitus without complications; F41.9 Anxiety disorder, unspecified; D64.9 Anemia, unspecified
CPT/HCPCS: 99282

== ENCOUNTER 2020-04-05 10:56 | Emergency (ER) | payer MEDICARE, OTHER ==
[~2020-04-05] VITALS: Ht 170.2 cm; Wt 52.2 kg
[2020-04-05 11:10] VITALS: BP 94/72
== END 2020-04-05 11:10 | disposition home or self-care (01) ==
LOC: ER 11:10
DX: Z43.1 Encounter for attention to gastrostomy (principal); Z87.820 Personal history of traumatic brain injury; Z91.5 Personal history of self-harm; F41.9 Anxiety disorder, unspecified; E11.9 Type 2 diabetes mellitus without complications; D64.9 Anemia, unspecified; G93.1 Anoxic brain damage, not elsewhere classified
CPT/HCPCS: 43762; 99283

== ENCOUNTER 2020-04-19 07:05 | Emergency (ER) | payer MEDICARE, OTHER ==
[~2020-04-19] VITALS: Ht 170.2 cm; Wt 52.2 kg
== END 2020-04-19 07:25 ==
LOC: ER 07:14
DX: Z43.1 Encounter for attention to gastrostomy (principal); Z87.820 Personal history of traumatic brain injury; Z91.5 Personal history of self-harm; G93.1 Anoxic brain damage, not elsewhere classified; E11.9 Type 2 diabetes mellitus without complications; D64.9 Anemia, unspecified; F41.9 Anxiety disorder, unspecified
CPT/HCPCS: 99282

== ENCOUNTER 2020-04-19 20:49 | Emergency (ER) | payer MEDICARE, OTHER ==
[~2020-04-19] VITALS: Ht 170.2 cm; Wt 52.2 kg
== END 2020-04-19 21:20 ==
LOC: ER 21:07
DX: Z43.1 Encounter for attention to gastrostomy (principal); Z87.820 Personal history of traumatic brain injury; Z91.5 Personal history of self-harm; G93.1 Anoxic brain damage, not elsewhere classified; E11.9 Type 2 diabetes mellitus without complications; F41.9 Anxiety disorder, unspecified; D64.9 Anemia, unspecified
CPT/HCPCS: 43762; 99282

== ENCOUNTER 2020-04-24 06:32 | Emergency (ER) | payer MEDICARE, OTHER ==
[~2020-04-24] VITALS: Ht 170.2 cm; Wt 52.2 kg
== END 2020-04-24 07:03 ==
LOC: ER 06:46
DX: Z43.1 Encounter for attention to gastrostomy (principal); Z87.820 Personal history of traumatic brain injury; Z91.5 Personal history of self-harm; G93.1 Anoxic brain damage, not elsewhere classified; E11.9 Type 2 diabetes mellitus without complications; F41.9 Anxiety disorder, unspecified
CPT/HCPCS: 99282

== ENCOUNTER 2020-04-24 23:56 | Emergency (ER) | payer OTHER ==
[~2020-04-24] VITALS: Ht 170.2 cm; Wt 52.2 kg
== END 2020-04-25 00:52 ==
LOC: ER 04-25 00:15
DX: Z43.1 Encounter for attention to gastrostomy (principal); Z87.820 Personal history of traumatic brain injury; Z91.5 Personal history of self-harm; F41.9 Anxiety disorder, unspecified; D64.9 Anemia, unspecified; E11.9 Type 2 diabetes mellitus without complications
CPT/HCPCS: 99282

== ENCOUNTER 2020-04-25 16:43 | Emergency (ER) | payer MEDICARE, OTHER ==
[~2020-04-25] VITALS: Ht 170.2 cm; Wt 52.2 kg
== END 2020-04-25 20:11 ==
LOC: ER 17:40
DX: Z43.1 Encounter for attention to gastrostomy (principal); Z87.820 Personal history of traumatic brain injury; Z91.5 Personal history of self-harm; E11.9 Type 2 diabetes mellitus without complications; F41.9 Anxiety disorder, unspecified; D64.9 Anemia, unspecified; G93.1 Anoxic brain damage, not elsewhere classified
CPT/HCPCS: 99283

== ENCOUNTER 2020-04-27 21:42 | Emergency (ER) | payer OTHER ==
[~2020-04-27] VITALS: Ht 170.2 cm; Wt 52.2 kg
== END 2020-04-27 22:17 | disposition home or self-care (01) ==
LOC: ER 22:00
DX: Z43.1 Encounter for attention to gastrostomy (principal); Z87.820 Personal history of traumatic brain injury; Z91.5 Personal history of self-harm; E11.9 Type 2 diabetes mellitus without complications; F41.9 Anxiety disorder, unspecified; M24.59 Contracture, other specified joint; G93.1 Anoxic brain damage, not elsewhere classified
CPT/HCPCS: 99283

== ENCOUNTER 2020-04-29 20:17 | Emergency (ER) | payer OTHER ==
[~2020-04-29] VITALS: Ht 170.2 cm; Wt 52.2 kg
== END 2020-04-29 20:42 | disposition home or self-care (01) ==
LOC: ER 20:23
DX: Z43.1 Encounter for attention to gastrostomy (principal); Z87.820 Personal history of traumatic brain injury; Z91.5 Personal history of self-harm; E11.9 Type 2 diabetes mellitus without complications; F41.9 Anxiety disorder, unspecified; G93.1 Anoxic brain damage, not elsewhere classified
CPT/HCPCS: 43762; 99282

== ENCOUNTER 2020-04-30 17:36 | Emergency (ER) | payer OTHER ==
[~2020-04-30] VITALS: Ht 170.2 cm; Wt 52.2 kg
== END 2020-04-30 18:00 ==
LOC: ER 17:40
DX: Z43.1 Encounter for attention to gastrostomy (principal); Z87.820 Personal history of traumatic brain injury; Z91.5 Personal history of self-harm; E11.9 Type 2 diabetes mellitus without complications; G93.1 Anoxic brain damage, not elsewhere classified; F41.9 Anxiety disorder, unspecified
CPT/HCPCS: 99283

== ENCOUNTER 2020-05-02 12:39 | Emergency (ER) | payer OTHER ==
[~2020-05-02] VITALS: Ht 170.2 cm; Wt 52.2 kg
== END 2020-05-02 12:55 ==
LOC: ER 12:55
DX: Z43.1 Encounter for attention to gastrostomy (principal); Z87.820 Personal history of traumatic brain injury; Z91.5 Personal history of self-harm; R64 Cachexia; G93.1 Anoxic brain damage, not elsewhere classified; E11.9 Type 2 diabetes mellitus without complications; D64.9 Anemia, unspecified; F41.9 Anxiety disorder, unspecified
CPT/HCPCS: 43762; 99282

== ENCOUNTER 2020-05-04 10:26 | Emergency (ER) | payer OTHER ==
[~2020-05-04] VITALS: Ht 170.2 cm; Wt 52.2 kg
[2020-05-04] MEDS ORDERED: DIATRIZOATE MEGL/DIATRIZOA SOD 30 ML BTL PO ONE (11:43)
== END 2020-05-04 15:05 ==
LOC: ER 10:31
DX: Z43.1 Encounter for attention to gastrostomy (principal); Z87.820 Personal history of traumatic brain injury; Z91.5 Personal history of self-harm; G93.1 Anoxic brain damage, not elsewhere classified; E11.9 Type 2 diabetes mellitus without complications; F41.9 Anxiety disorder, unspecified
CPT/HCPCS: 74018; 99283

== ENCOUNTER 2020-05-16 23:15 | Emergency (ER) | payer MEDICARE, OTHER ==
[~2020-05-16] VITALS: Ht 170.2 cm; Wt 52.2 kg
[2020-05-17 00:41] LABS: BASOPHILS # (AUTO) 0.1 (0.0-0.1); BASOPHILS % 0.5 % (0.0-1.0); EOSINOPHILS # (AUTO) 0.1 (0.0-0.4); EOSINOPHILS % 0.6 % (0.0-6.0); HEMOGLOBIN 14.4 g/dL (14.0-18.0); LYMPHOCYTES # (AUTO) 1.1 (1.0-3.2); LYMPHOCYTES % 8.3 % (18.0-39.1); MEAN CORPUSCULAR HEMOGLOBIN 30.8 pg (28-32); MEAN CORPUSCULAR HGB CONC 32.7 g/dL (31-35); MONOCYTES # (AUTO) 0.8 (0.2-0.8); MONOCYTES % 6.4 % (4.4-11.3); NEUTROPHILS # (AUTO) 10.7 (2.1-6.9); PLATELET COUNT 222 x10e3/uL (140-360); RED BLOOD COUNT 4.68 x10e6/uL (4.3-5.7); RED CELL DISTRIBUTION WIDTH 13.2 % (11.7-14.4)
[2020-05-17 00:50] LABS: INR 1.15; PROTHROMBIN TIME 15.5 seconds (11.9-14.5)
[2020-05-17 00:51] LABS: PARTIAL THROMBOPLASTIN TIME 35.4 seconds (23.8-35.5)
[2020-05-17 01:00] LABS: ALANINE AMINOTRANSFERASE 51 IU/L (0-55); ALBUMIN/GLOBULIN RATIO 0.7 (0.8-2.0); ALKALINE PHOSPHATASE 124 IU/L (40-150); ANION GAP 14.5 mmol/L (8-16); BLOOD UREA NITROGEN 22 mg/dL (7-26); BUN/CREATININE RATIO 31 (6-25); CALCIUM 9.9 mg/dL (8.4-10.2); CARBON DIOXIDE 32 mmol/L (22-29); CHLORIDE 101 mmol/L (98-107); CREATININE, SERUM 0.72 mg/dL (0.72-1.25); EST GLOMERULAR FILTRATION RATE > 60 ML/MIN (60-); GLUCOSE 122 mg/dL (74-118); POTASSIUM 3.5 mmol/L (3.5-5.1); SODIUM 144 mmol/L (136-145)
[2020-05-17 01:28] LABS: CLARITY,URINE CLOUDY (CLEAR); COLOR,URINE YELLOW (YELLOW); KETONES,URINE NEGATIVE (NEGATIVE); LEUKOCYTE ESTERASE ,URINE NEGATIVE (NEGATIVE); NITRITE,URINE NEGATIVE (NEGATIVE); PROTEIN,URINE DIPSTICK TRACE (NEGATIVE); URINE UROBILINOGEN 0.2 mg/dL (0.2 - 1)
[2020-05-17 01:33] LABS: AMORPHOUS SEDIMENT,URINE FEW (FEW); BACTERIA,URINE FEW /HPF; EPITHELIAL CELLS,URINE FEW /LPF; RBC,URINE 21-50 /HPF (0-5)
[2020-05-17 03:41] VITALS: BP 102/72
== END 2020-05-17 02:55 | disposition home or self-care (01) ==
LOC: ER 23:25
DX: R56.9 Unspecified convulsions (principal); E11.9 Type 2 diabetes mellitus without complications; T14.90XA Injury, unspecified, initial encounter; X83.8XXA Intentional self-harm by other specified means, initial encounter; W18.39XA Other fall on same level, initial encounter; Z79.02 Long term (current) use of antithrombotics/antiplatelets
CPT/HCPCS: 36415; 70450; 71045; 80053; 81001; 85025; 85610; 85730; 99284

== ENCOUNTER 2020-05-22 15:58 | Emergency (ER) | payer MEDICARE, OTHER ==
[~2020-05-22] VITALS: Ht 170.2 cm; Wt 52.2 kg
== END 2020-05-22 16:21 | disposition home or self-care (01) ==
LOC: ER 16:13
DX: Z43.1 Encounter for attention to gastrostomy (principal); G93.1 Anoxic brain damage, not elsewhere classified; E11.9 Type 2 diabetes mellitus without complications; F41.9 Anxiety disorder, unspecified; Z87.820 Personal history of traumatic brain injury; Z91.5 Personal history of self-harm
CPT/HCPCS: 43762; 99282

== ENCOUNTER 2020-05-28 07:53 | Emergency (ER) | payer MEDICARE, OTHER ==
[~2020-05-28] VITALS: Ht 170.2 cm; Wt 52.2 kg
== END 2020-05-28 08:20 ==
LOC: ER 07:57
DX: Z43.1 Encounter for attention to gastrostomy (principal); Z87.820 Personal history of traumatic brain injury; Z91.5 Personal history of self-harm; E11.9 Type 2 diabetes mellitus without complications; F41.9 Anxiety disorder, unspecified; M62.49 Contracture of muscle, multiple sites; G93.1 Anoxic brain damage, not elsewhere classified
CPT/HCPCS: 99283

== ENCOUNTER 2020-05-29 00:34 | Emergency (ER) | payer MEDICARE, OTHER ==
[~2020-05-29] VITALS: Ht 170.2 cm; Wt 52.2 kg
== END 2020-05-29 01:00 ==
LOC: ER 00:41
DX: Z43.1 Encounter for attention to gastrostomy (principal); S06.890A Other specified intracranial injury without loss of consciousness, initial encounter; E11.9 Type 2 diabetes mellitus without complications; X58.XXXA Exposure to other specified factors, initial encounter; Z91.5 Personal history of self-harm; F41.9 Anxiety disorder, unspecified
CPT/HCPCS: 99283

== ENCOUNTER 2020-06-01 01:56 | Emergency (ER) | payer MEDICARE, OTHER ==
[~2020-06-01] VITALS: Ht 170.2 cm; Wt 52.2 kg
== END 2020-06-01 02:15 ==
LOC: ER 02:06
DX: Z43.1 Encounter for attention to gastrostomy (principal); Z87.820 Personal history of traumatic brain injury; Z91.5 Personal history of self-harm; E11.9 Type 2 diabetes mellitus without complications; F41.9 Anxiety disorder, unspecified
CPT/HCPCS: 99282

== ENCOUNTER 2020-06-01 22:21 | Emergency (ER) | payer MEDICARE, OTHER ==
[~2020-06-01] VITALS: Ht 170.2 cm; Wt 52.2 kg
== END 2020-06-01 22:40 ==
LOC: ER 22:35
DX: Z43.1 Encounter for attention to gastrostomy (principal); G93.1 Anoxic brain damage, not elsewhere classified; E11.9 Type 2 diabetes mellitus without complications; Z87.820 Personal history of traumatic brain injury; Z91.5 Personal history of self-harm; F41.9 Anxiety disorder, unspecified
CPT/HCPCS: 99282

== ENCOUNTER 2020-06-11 17:13 | Emergency (ER) | payer MEDICARE, OTHER ==
[~2020-06-11] VITALS: Ht 170.2 cm; Wt 52.2 kg
[2020-06-11] MEDS ORDERED: DIATRIZOATE MEGL/DIATRIZOA SOD 30 ML BTL PO ONE (18:24)
== END 2020-06-11 18:44 ==
LOC: ER 17:19
DX: Z43.1 Encounter for attention to gastrostomy (principal); E11.9 Type 2 diabetes mellitus without complications; G93.1 Anoxic brain damage, not elsewhere classified; M24.59 Contracture, other specified joint; D64.9 Anemia, unspecified; F41.9 Anxiety disorder, unspecified; Z87.820 Personal history of traumatic brain injury; Z91.5 Personal history of self-harm
CPT/HCPCS: 74018; 99283

== ENCOUNTER 2020-07-23 17:13 | Inpatient (IN) | payer MEDICARE ==
[~2020-07-23] VITALS: Ht 170.2 cm; Wt 56.8 kg
[2020-07-23 18:52] LABS: BASOPHILS # (AUTO) 0.1 (0.0-0.1); BASOPHILS % 0.8 % (0.0-1.0); EOSINOPHILS # (AUTO) 0.6 (0.0-0.4); EOSINOPHILS % 9.4 % (0.0-6.0); HEMATOCRIT 40.5 % (38.2-49.6); HEMOGLOBIN 13.3 g/dL (14.0-18.0); LYMPHOCYTES # (AUTO) 0.9 (1.0-3.2); LYMPHOCYTES % 14.5 % (18.0-39.1); MEAN CORPUSCULAR HGB CONC 32.8 g/dL (31-35); MEAN CORPUSCULAR VOLUME 94.4 fL (81-99); MONOCYTES # (AUTO) 0.5 (0.2-0.8); MONOCYTES % 8.4 % (4.4-11.3); NEUTROPHILS % 66.7 % (38.7-80.0); PLATELET COUNT 141 x10e3/uL (140-360); RED BLOOD COUNT 4.29 x10e6/uL (4.3-5.7); RED CELL DISTRIBUTION WIDTH 14.1 % (11.7-14.4)
[2020-07-23 19:09] LABS: ALANINE AMINOTRANSFERASE 40 IU/L (0-55); ALBUMIN 3.6 g/dL (3.5-5.0); ALBUMIN/GLOBULIN RATIO 0.7 (0.8-2.0); ALKALINE PHOSPHATASE 129 IU/L (40-150); ANION GAP 14.4 mmol/L (8-16); BLOOD UREA NITROGEN 19 mg/dL (7-26); BUN/CREATININE RATIO 35 (6-25); CALCIUM 9.7 mg/dL (8.4-10.2); CARBON DIOXIDE 30 mmol/L (22-29); CHLORIDE 103 mmol/L (98-107); CREATININE, SERUM 0.55 mg/dL (0.72-1.25); EST GLOMERULAR FILTRATION RATE > 60 ML/MIN (60-); GLUCOSE 69 mg/dL (74-118); POTASSIUM 4.4 mmol/L (3.5-5.1); SODIUM 143 mmol/L (136-145)
[2020-07-23 19:21] LABS: B-TYPE NATRIURETIC PEPTIDE2 < 10.0 pg/mL (0-100)
[2020-07-23 19:44] LABS: THYROID STIMULATING HORMONE 2.819 uIU/mL (0.350-4.940)
[2020-07-23 20:53] LABS: CLARITY,URINE SL CLOUDY (CLEAR); COLOR,URINE YELLOW (YELLOW); KETONES,URINE NEGATIVE (NEGATIVE); LEUKOCYTE ESTERASE ,URINE NEGATIVE (NEGATIVE); NITRITE,URINE NEGATIVE (NEGATIVE); PROTEIN,URINE DIPSTICK NEGATIVE (NEGATIVE); URINE UROBILINOGEN 0.2 mg/dL (0.2 - 1)
[2020-07-23 21:08] LABS: BACTERIA,URINE FEW /HPF; EPITHELIAL CELLS,URINE FEW /LPF
[2020-07-23] MEDS: SODIUM CHLORIDE 0.9% 1000ML 1,000 ML IV SCH (23:11)
[2020-07-24] VITALS (9 sets, daily range): BP systolic 91–105; BP diastolic 64–80
[2020-07-24] MEDS ORDERED: SODIUM CHLORIDE 0.9% 1000ML 1,000 ML ONE ×3 (01:46→20:41)
[2020-07-24] MEDS: SODIUM CHLORIDE 0.9% 1000ML 1,000 ML IV SCH ×3 (01:52→20:49)
[2020-07-24] MEDS: DEXTROSE 50% SYRINGE 50 ML IV PRN ×2 (07:37→20:49)
[2020-07-25] VITALS (8 sets, daily range): BP systolic 94–114; BP diastolic 63–79
[2020-07-25] MEDS: SODIUM CHLORIDE 0.9% 1000ML 1,000 ML IV SCH ×3 (04:50→22:48)
[2020-07-25] MEDS ORDERED: SODIUM CHLORIDE 0.9% 1000ML 1,000 ML ONE (04:53)
[2020-07-25] MEDS: DEXTROSE 50% SYRINGE 50 ML IV PRN (07:20)
[2020-07-25] MEDS: COLLAGENASE 5 GM TUBE TOP SCH (13:47)
[2020-07-26] VITALS (8 sets, daily range): BP systolic 91–113; BP diastolic 60–68
[2020-07-26] MEDS: SODIUM CHLORIDE 0.9% 1000ML 1,000 ML IV SCH ×3 (06:32→23:00)
[2020-07-26] MEDS: COLLAGENASE 5 GM TUBE TOP SCH (09:00)
[2020-07-27] VITALS (8 sets, daily range): BP systolic 97–102; BP diastolic 60–78
[2020-07-27] MEDS: SODIUM CHLORIDE 0.9% 1000ML 1,000 ML IV SCH (07:00)
[2020-07-27 11:44] LABS: INR 1.19; PROTHROMBIN TIME 15.9 seconds (11.9-14.5)
[2020-07-27 11:45] LABS: PARTIAL THROMBOPLASTIN TIME 41.7 seconds (23.8-35.5)
[2020-07-27] MEDS: COLLAGENASE 5 GM TUBE TOP SCH (11:57)
[2020-07-27] MEDS ORDERED: LIDOCAINE HCL 2% LOCAL INJ 5 ML SDV VIAL INJ ONE (12:21)
[2020-07-27] MEDS ORDERED: PROPOFOL IV EMULSION 10 MG/ML 20 ML VIAL ONE (12:21)
[2020-07-27] MEDS: DEXTROSE 50% SYRINGE 50 ML IV PRN (12:49)
[2020-07-27] MEDS: DEXTROSE 5% 1,000 ML IV SCH ×2 (13:10→21:51)
[2020-07-27] MEDS ORDERED: HYDROMORPHONE 1MG/1ML INJ IV PRN (16:30)
[2020-07-28] VITALS (8 sets, daily range): BP systolic 92–177; BP diastolic 56–95
[2020-07-28] MEDS: DEXTROSE 5% 1,000 ML IV SCH ×2 (10:55→18:00)
[2020-07-28] MEDS: COLLAGENASE 5 GM TUBE TOP SCH (11:13)
[2020-07-29] VITALS (7 sets, daily range): BP systolic 98–133; BP diastolic 62–77
[2020-07-29] MEDS: DEXTROSE 5% 1,000 ML IV SCH ×2 (04:00→14:00)
[2020-07-29 06:08] LABS: BASOPHILS % 0.3 % (0.0-1.0); EOSINOPHILS # (AUTO) 0.7 (0.0-0.4); EOSINOPHILS % 7.6 % (0.0-6.0); HEMATOCRIT 35.8 % (38.2-49.6); HEMOGLOBIN 11.9 g/dL (14.0-18.0); LYMPHOCYTES # (AUTO) 0.7 (1.0-3.2); LYMPHOCYTES % 7.8 % (18.0-39.1); MEAN CORPUSCULAR HEMOGLOBIN 31.5 pg (28-32); MEAN CORPUSCULAR HGB CONC 33.2 g/dL (31-35); MEAN CORPUSCULAR VOLUME 94.7 fL (81-99); MONOCYTES # (AUTO) 0.8 (0.2-0.8); MONOCYTES % 8.3 % (4.4-11.3); NEUTROPHILS # (AUTO) 6.9 (2.1-6.9); NEUTROPHILS % 75.7 % (38.7-80.0); PLATELET COUNT 130 x10e3/uL (140-360); RED BLOOD COUNT 3.78 x10e6/uL (4.3-5.7); RED CELL DISTRIBUTION WIDTH 13.1 % (11.7-14.4)
[2020-07-29 06:42] LABS: ANION GAP 10.9 mmol/L (8-16); BLOOD UREA NITROGEN < 5 mg/dL (7-26); CALCIUM 8.9 mg/dL (8.4-10.2); CARBON DIOXIDE 30 mmol/L (22-29); CHLORIDE 100 mmol/L (98-107); CREATININE, SERUM 0.52 mg/dL (0.72-1.25); EST GLOMERULAR FILTRATION RATE > 60 ML/MIN (60-); GLUCOSE 102 mg/dL (74-118); SODIUM 138 mmol/L (136-145)
[2020-07-29 06:43] LABS: BUN/CREATININE RATIO 10 (6-25); POTASSIUM 2.9 mmol/L (3.5-5.1)
[2020-07-29] MEDS ORDERED: POTASSIUM CHLORIDE 20MEQ/100ML 300 ML IV ONE (09:45)
[2020-07-29] MEDS ORDERED: SODIUM CHLORIDE 0.9% 1000ML 1,000 ML ONE (10:19)
[2020-07-29] MEDS: COLLAGENASE 5 GM TUBE TOP SCH (12:10)
[2020-07-30] VITALS (8 sets, daily range): BP systolic 91–110; BP diastolic 62–70
[2020-07-30] MEDS: DEXTROSE 5% 1,000 ML IV SCH ×3 (02:00→20:00)
[2020-07-30 06:10] LABS: ANION GAP 16.7 mmol/L (8-16); BLOOD UREA NITROGEN 6 mg/dL (7-26); BUN/CREATININE RATIO 10 (6-25); CALCIUM 8.6 mg/dL (8.4-10.2); CARBON DIOXIDE 26 mmol/L (22-29); CHLORIDE 98 mmol/L (98-107); CREATININE, SERUM 0.59 mg/dL (0.72-1.25); EST GLOMERULAR FILTRATION RATE > 60 ML/MIN (60-); GLUCOSE 96 mg/dL (74-118); POTASSIUM 3.7 mmol/L (3.5-5.1); SODIUM 137 mmol/L (136-145)
[2020-07-30] MEDS ORDERED: ACETAMINOPHEN 650 MG SUPP PR PRN (10:45)
[2020-07-30] MEDS ORDERED: ALBUTEROL/IPRATROPIUM 3 ML NEB NEB PRN (11:00)
[2020-07-30] MEDS: COLLAGENASE 5 GM TUBE TOP SCH (11:43)
[2020-07-30] MEDS: PIPERACILLIN/TAZOBAC 3.375 GM in SODIUM CHLORIDE 0.9% 50ML 50 ML IV SCH ×2 (11:43→18:00)
[2020-07-30] MEDS ORDERED: VANCOMYCIN 750MG/NS 150ML IVPB 150 ML IV SCH (12:00)
[2020-07-30] MEDS ORDERED: PIPERACILLIN/TAZOBAC 3.375 GM in SODIUM CHLORIDE 0.9% 50ML 50 ML IV SCH (12:00)
[2020-07-30] MEDS: ALBUTEROL/IPRATROPIUM 3 ML NEB NEB SCH ×2 (12:37→20:47)
[2020-07-30 12:48] LABS: ABG PCO2 38 mmHg (35-45); ABG PH 7.43 (7.35-7.45)
[2020-07-30 12:49] LABS: ABG HCO3 25 mmol/L (22-26); ABG PO2 54 mmHg (80-105); ABG TCO2 26
[2020-07-31] VITALS (10 sets, daily range): BP systolic 80–112; BP diastolic 54–76
[2020-07-31] MEDS: PIPERACILLIN/TAZOBAC 3.375 GM in SODIUM CHLORIDE 0.9% 50ML 50 ML IV SCH ×4 (00:15→18:39)
[2020-07-31] MEDS: ALBUTEROL/IPRATROPIUM 3 ML NEB NEB SCH ×4 (02:30→19:30)
[2020-07-31] MEDS: DEXTROSE 5% 1,000 ML IV SCH ×2 (05:02→18:39)
[2020-07-31 06:41] LABS: BASOPHILS # (AUTO) 0.1 (0.0-0.1); BASOPHILS % 0.5 % (0.0-1.0); EOSINOPHILS # (AUTO) 0.7 (0.0-0.4); EOSINOPHILS % 6.2 % (0.0-6.0); HEMATOCRIT 30.1 % (38.2-49.6); HEMOGLOBIN 10.3 g/dL (14.0-18.0); LYMPHOCYTES # (AUTO) 0.8 (1.0-3.2); LYMPHOCYTES % 7.1 % (18.0-39.1); MEAN CORPUSCULAR HEMOGLOBIN 32.7 pg (28-32); MEAN CORPUSCULAR HGB CONC 34.2 g/dL (31-35); MEAN CORPUSCULAR VOLUME 95.6 fL (81-99); MONOCYTES # (AUTO) 0.9 (0.2-0.8); NEUTROPHILS # (AUTO) 8.9 (2.1-6.9); NEUTROPHILS % 77.8 % (38.7-80.0); PLATELET COUNT 132 x10e3/uL (140-360); RED BLOOD COUNT 3.15 x10e6/uL (4.3-5.7); RED CELL DISTRIBUTION WIDTH 13.3 % (11.7-14.4)
[2020-07-31 07:02] LABS: ALANINE AMINOTRANSFERASE 14 IU/L (0-55); ALBUMIN 2.4 g/dL (3.5-5.0); ALBUMIN/GLOBULIN RATIO 0.6 (0.8-2.0); ALKALINE PHOSPHATASE 82 IU/L (40-150); ANION GAP 13.1 mmol/L (8-16); BLOOD UREA NITROGEN 5 mg/dL (7-26); BUN/CREATININE RATIO 9 (6-25); CARBON DIOXIDE 28 mmol/L (22-29); CHLORIDE 102 mmol/L (98-107); CREATININE, SERUM 0.54 mg/dL (0.72-1.25); EST GLOMERULAR FILTRATION RATE > 60 ML/MIN (60-); GLUCOSE 109 mg/dL (74-118); POTASSIUM 3.1 mmol/L (3.5-5.1); SODIUM 140 mmol/L (136-145)
[2020-07-31] MEDS: COLLAGENASE 5 GM TUBE TOP SCH (10:00)
[2020-07-31] MEDS ORDERED: POTASSIUM CHLORIDE 20MEQ/100ML 100 ML IV ONE (11:30)
[2020-07-31] MEDS ORDERED: SODIUM CHLORIDE 0.9% 250ML 250 ML IV ONE (15:15)
[2020-08-01] VITALS (7 sets, daily range): BP systolic 90–104; BP diastolic 65–75
[2020-08-01] MEDS: ALBUTEROL/IPRATROPIUM 3 ML NEB NEB SCH ×4 (01:35→20:10)
[2020-08-01 06:11] LABS: BASOPHILS % 0.4 % (0.0-1.0); EOSINOPHILS # (AUTO) 0.7 (0.0-0.4); HEMATOCRIT 29.5 % (38.2-49.6); HEMOGLOBIN 9.8 g/dL (14.0-18.0); LYMPHOCYTES # (AUTO) 1.1 (1.0-3.2); LYMPHOCYTES % 10.6 % (18.0-39.1); MEAN CORPUSCULAR HEMOGLOBIN 31.3 pg (28-32); MEAN CORPUSCULAR HGB CONC 33.2 g/dL (31-35); MEAN CORPUSCULAR VOLUME 94.2 fL (81-99); MONOCYTES % 10.1 % (4.4-11.3); NEUTROPHILS # (AUTO) 7.1 (2.1-6.9); NEUTROPHILS % 71.6 % (38.7-80.0); PLATELET COUNT 166 x10e3/uL (140-360); RED BLOOD COUNT 3.13 x10e6/uL (4.3-5.7); RED CELL DISTRIBUTION WIDTH 13.1 % (11.7-14.4)
[2020-08-01 06:28] LABS: INR 1.21; PROTHROMBIN TIME 16.1 seconds (11.9-14.5)
[2020-08-01 06:37] LABS: ALANINE AMINOTRANSFERASE 13 IU/L (0-55); ALBUMIN 2.5 g/dL (3.5-5.0); ALBUMIN/GLOBULIN RATIO 0.6 (0.8-2.0); ALKALINE PHOSPHATASE 87 IU/L (40-150); ANION GAP 12.2 mmol/L (8-16); BLOOD UREA NITROGEN < 5 mg/dL (7-26); CALCIUM 7.9 mg/dL (8.4-10.2); CARBON DIOXIDE 27 mmol/L (22-29); CHLORIDE 99 mmol/L (98-107); CREATININE, SERUM 0.54 mg/dL (0.72-1.25); EST GLOMERULAR FILTRATION RATE > 60 ML/MIN (60-); GLUCOSE 118 mg/dL (74-118); POTASSIUM 3.2 mmol/L (3.5-5.1); SODIUM 135 mmol/L (136-145)
[2020-08-01 06:45] LABS: BUN/CREATININE RATIO 9 (6-25)
[2020-08-01] MEDS: PIPERACILLIN/TAZOBAC 3.375 GM in SODIUM CHLORIDE 0.9% 50ML 50 ML IV SCH ×5 (07:00→18:21)
[2020-08-01] MEDS: DEXTROSE 5% 1,000 ML IV SCH (07:00)
[2020-08-01] MEDS: COLLAGENASE 5 GM TUBE TOP SCH (08:50)
[2020-08-01] MEDS ORDERED: POTASSIUM CHLORIDE 20MEQ/100ML 100 ML IV ONE (10:30)
[2020-08-01] MEDS: DEXTROSE 5%/0.9% SOD CHL 1,000 ML IV SCH (10:52)
[2020-08-01] MEDS ORDERED: PROPOFOL IV EMULSION 10 MG/ML 20 ML VIAL ONE (13:45)
[2020-08-01] MEDS ORDERED: LIDOCAINE HCL 2% LOCAL INJ 5 ML SDV VIAL INJ ONE (13:45)
[2020-08-01] MEDS ORDERED: NEOMYCIN/POLYMYX/BACITR OINT 0.9 GM PKT ONE (13:56)
[2020-08-02] VITALS (8 sets, daily range): BP systolic 71–124; BP diastolic 53–90
[2020-08-02] MEDS: ALBUTEROL/IPRATROPIUM 3 ML NEB NEB SCH ×4 (01:00→18:45)
[2020-08-02] MEDS: DEXTROSE 5%/0.9% SOD CHL 1,000 ML IV SCH ×3 (01:52→16:32)
[2020-08-02 05:52] LABS: BASOPHILS # (AUTO) 0.1 (0.0-0.1); BASOPHILS % 0.7 % (0.0-1.0); EOSINOPHILS % 11.8 % (0.0-6.0); HEMATOCRIT 29.2 % (38.2-49.6); HEMOGLOBIN 9.5 g/dL (14.0-18.0); LYMPHOCYTES # (AUTO) 0.9 (1.0-3.2); LYMPHOCYTES % 11.2 % (18.0-39.1); MEAN CORPUSCULAR HEMOGLOBIN 31.4 pg (28-32); MEAN CORPUSCULAR HGB CONC 32.5 g/dL (31-35); MEAN CORPUSCULAR VOLUME 96.4 fL (81-99); MONOCYTES # (AUTO) 0.8 (0.2-0.8); MONOCYTES % 9.3 % (4.4-11.3); NEUTROPHILS # (AUTO) 5.5 (2.1-6.9); NEUTROPHILS % 66.5 % (38.7-80.0); PLATELET COUNT 176 x10e3/uL (140-360); RED BLOOD COUNT 3.03 x10e6/uL (4.3-5.7); RED CELL DISTRIBUTION WIDTH 13.1 % (11.7-14.4)
[2020-08-02] MEDS: PIPERACILLIN/TAZOBAC 3.375 GM in SODIUM CHLORIDE 0.9% 50ML 50 ML IV SCH ×5 (06:00→18:08)
[2020-08-02 06:26] LABS: ALANINE AMINOTRANSFERASE 12 IU/L (0-55); ALBUMIN 2.5 g/dL (3.5-5.0); ALBUMIN/GLOBULIN RATIO 0.6 (0.8-2.0); ALKALINE PHOSPHATASE 67 IU/L (40-150); ANION GAP 11.3 mmol/L (8-16); BLOOD UREA NITROGEN < 5 mg/dL (7-26); CALCIUM 7.8 mg/dL (8.4-10.2); CARBON DIOXIDE 27 mmol/L (22-29); CHLORIDE 106 mmol/L (98-107); CREATININE, SERUM 0.55 mg/dL (0.72-1.25); EST GLOMERULAR FILTRATION RATE > 60 ML/MIN (60-); GLUCOSE 101 mg/dL (74-118); POTASSIUM 3.3 mmol/L (3.5-5.1); SODIUM 141 mmol/L (136-145)
[2020-08-02 06:28] LABS: BUN/CREATININE RATIO 9 (6-25)
[2020-08-02] MEDS: COLLAGENASE 5 GM TUBE TOP SCH (08:29)
[2020-08-02] MEDS ORDERED: POTASSIUM CHLORIDE 10MEQ EA PO ONE (11:45)
[2020-08-02] MEDS: VANCOMYCIN 500MG/NS 0.9% 100ML 100 ML IV SCH ×2 (13:13→21:17)
[2020-08-03] VITALS (8 sets, daily range): BP systolic 79–89; BP diastolic 49–67
[2020-08-03] MEDS: ALBUTEROL/IPRATROPIUM 3 ML NEB NEB SCH ×3 (00:15→13:29)
[2020-08-03] MEDS: DEXTROSE 5%/0.9% SOD CHL 1,000 ML IV SCH ×2 (06:43→13:00)
[2020-08-03] MEDS: PIPERACILLIN/TAZOBAC 3.375 GM in SODIUM CHLORIDE 0.9% 50ML 50 ML IV SCH ×5 (06:43→18:18)
[2020-08-03] MEDS: VANCOMYCIN 500MG/NS 0.9% 100ML 100 ML IV SCH (08:29)
[2020-08-03] MEDS ORDERED: SODIUM CHLORIDE 0.9% 1000ML 1,000 ML IV SCH (11:00)
[2020-08-03] MEDS: COLLAGENASE 5 GM TUBE TOP SCH (14:57)
== END 2020-08-03 20:25 | DRG 393 ==
LOC: ER 17:19 → ERHOLD 23:26 → UNDOADMIN 23:26 → ERHOLD 07-24 00:34 → MED/SURG3 07-24 01:32
PROC: 0DH68UZ Insertion of Feeding Device into Stomach, Via Natural or Artificial Opening Endoscopic (ICD-10-PCS; principal; 2020-07-27 13:00)
PROC: 0DH68UZ Insertion of Feeding Device into Stomach, Via Natural or Artificial Opening Endoscopic (ICD-10-PCS; 2020-08-01)
PROC: 0DP68UZ Removal of Feeding Device from Stomach, Via Natural or Artificial Opening Endoscopic (ICD-10-PCS; 2020-08-01 12:00)
DX: K94.23 Gastrostomy malfunction (principal); L89.513 Pressure ulcer of right ankle, stage 3; R53.2 Functional quadriplegia; G93.1 Anoxic brain damage, not elsewhere classified; E46 Unspecified protein-calorie malnutrition; E44.0 Moderate protein-calorie malnutrition; Z68.1 Body mass index [BMI] 19.9 or less, adult; E11.9 Type 2 diabetes mellitus without complications; F41.9 Anxiety disorder, unspecified; D64.9 Anemia, unspecified; K21.00 Gastro-esophageal reflux disease with esophagitis, without bleeding; R09.02 Hypoxemia; L89.612 Pressure ulcer of right heel, stage 2
CPT/HCPCS: 31720; 36415; 36569; 36600; 43239; 43246; 71045; 74018; 80048; 80053; 81001; 82805; 82948; 83605; 83880; 84436; 84443; 84479; 84484; 85025; 85610; 85730; 87040; 87070; 87086; 87186; 87205; 93005; 94667; 94668; 94669; 99251; 99284; J1170; J2001; J2543; J3370; J3480; J7030; J7042; J7050; J7070; J7799; U0002

== ENCOUNTER 2020-09-04 13:52 | Emergency (ER) | payer MEDICARE, MEDICAID ==
[~2020-09-04] VITALS: Ht 170.2 cm; Wt 56.7 kg
== END 2020-09-04 14:12 | disposition home or self-care (01) ==
LOC: ER 14:03
DX: Z43.1 Encounter for attention to gastrostomy (principal); E11.9 Type 2 diabetes mellitus without complications; G93.1 Anoxic brain damage, not elsewhere classified; D64.9 Anemia, unspecified; Z87.820 Personal history of traumatic brain injury; Z91.5 Personal history of self-harm
CPT/HCPCS: 99283

== ENCOUNTER 2020-09-12 11:56 | Emergency (ER) | payer MEDICARE, MEDICAID ==
[~2020-09-12] VITALS: Ht 170.2 cm; Wt 56.7 kg
== END 2020-09-12 12:23 ==
LOC: ER 12:18
DX: Z43.1 Encounter for attention to gastrostomy (principal); E11.9 Type 2 diabetes mellitus without complications; D64.9 Anemia, unspecified; G93.1 Anoxic brain damage, not elsewhere classified; F41.9 Anxiety disorder, unspecified; Z87.820 Personal history of traumatic brain injury; Z91.5 Personal history of self-harm
CPT/HCPCS: 99283

== ENCOUNTER 2020-09-17 10:40 | Inpatient (IN) | payer MEDICARE, MEDICAID ==
[~2020-09-17] VITALS: Ht 170.2 cm; Wt 64.4 kg
[2020-09-17 12:24] LABS: BASOPHILS # (AUTO) 0.1 (0.0-0.1); BASOPHILS % 0.8 % (0.0-1.0); EOSINOPHILS # (AUTO) 0.7 (0.0-0.4); EOSINOPHILS % 11.2 % (0.0-6.0); HEMATOCRIT 37.7 % (38.2-49.6); HEMOGLOBIN 12.4 g/dL (14.0-18.0); LYMPHOCYTES # (AUTO) 0.9 (1.0-3.2); LYMPHOCYTES % 13.9 % (18.0-39.1); MEAN CORPUSCULAR HEMOGLOBIN 30.2 pg (28-32); MEAN CORPUSCULAR HGB CONC 32.9 g/dL (31-35); MONOCYTES # (AUTO) 0.4 (0.2-0.8); MONOCYTES % 6.5 % (4.4-11.3); NEUTROPHILS # (AUTO) 4.5 (2.1-6.9); NEUTROPHILS % 67.4 % (38.7-80.0); PLATELET COUNT 196 x10e3/uL (140-360); RED CELL DISTRIBUTION WIDTH 12.9 % (11.7-14.4)
[2020-09-17 12:42] LABS: INR 0.98; PROTHROMBIN TIME 13.6 seconds (11.9-14.5)
[2020-09-17] MEDS ORDERED: ONDANSETRON HCL INJ 2MG/ML 2ML 2 MG/ML VIAL IV PRN (12:45)
[2020-09-17 12:51] LABS: ALANINE AMINOTRANSFERASE 48 IU/L (0-55); ALBUMIN 3.5 g/dL (3.5-5.0); ALBUMIN/GLOBULIN RATIO 0.8 (0.8-2.0); ALKALINE PHOSPHATASE 85 IU/L (40-150); ANION GAP 13.4 mmol/L (8-16); BLOOD UREA NITROGEN 20 mg/dL (7-26); BUN/CREATININE RATIO 36 (6-25); CALCIUM 9.7 mg/dL (8.4-10.2); CARBON DIOXIDE 29 mmol/L (22-29); CHLORIDE 103 mmol/L (98-107); CREATININE, SERUM 0.56 mg/dL (0.72-1.25); EST GLOMERULAR FILTRATION RATE > 60 ML/MIN (60-); GLUCOSE 104 mg/dL (74-118); POTASSIUM 4.4 mmol/L (3.5-5.1); SODIUM 141 mmol/L (136-145)
[2020-09-17 15:00] VITALS: BP 96/83
[2020-09-17 18:17] VITALS: BP 96/83
[2020-09-17 20:00] VITALS: BP 95/84
[2020-09-17 20:13] VITALS: BP 94/84
[2020-09-18] VITALS (8 sets, daily range): BP systolic 92–106; BP diastolic 68–79
[2020-09-19] VITALS (9 sets, daily range): BP systolic 87–106; BP diastolic 63–81
[2020-09-19] MEDS: COLLAGENASE 5 GM TUBE TOP SCH (07:32)
[2020-09-19] MEDS ORDERED: SODIUM CHLORIDE 0.9% 250ML 250 ML IV ONE (14:15)
[2020-09-19] MEDS: DEXTROSE 5%/0.45% SOD CHL 1,000 ML IV SCH (14:47)
[2020-09-20] VITALS (9 sets, daily range): BP systolic 90–106; BP diastolic 67–79
[2020-09-20] MEDS: DEXTROSE 5%/0.45% SOD CHL 1,000 ML IV SCH ×2 (04:39)
[2020-09-20] MEDS: COLLAGENASE 5 GM TUBE TOP SCH (09:49)
[2020-09-20] MEDS ORDERED: PROPOFOL IV EMULSION 10 MG/ML 20 ML VIAL ONE (14:32)
[2020-09-20] MEDS ORDERED: MIDAZOLAM HCL 2 MG/2 ML VIAL ONE (17:43)
[2020-09-21] VITALS: BP 97/68
[2020-09-21 04:00] VITALS: BP 98/75
[2020-09-21 07:57] VITALS: BP 101/72
[2020-09-21 08:28] VITALS: BP 101/72
[2020-09-21 12:13] VITALS: BP 93/70
== END 2020-09-21 15:00 | disposition hospice, inpatient (51) | DRG 394 ==
LOC: ER 10:59 → ERHOLD 12:35 → MED/SURG3 14:57
PROC: 0DH68UZ Insertion of Feeding Device into Stomach, Via Natural or Artificial Opening Endoscopic (ICD-10-PCS; principal; 2020-09-20 16:00)
DX: K94.23 Gastrostomy malfunction (principal); G93.1 Anoxic brain damage, not elsewhere classified; E44.0 Moderate protein-calorie malnutrition; L89.150 Pressure ulcer of sacral region, unstageable; L89.892 Pressure ulcer of other site, stage 2; E11.9 Type 2 diabetes mellitus without complications; D64.9 Anemia, unspecified; F41.9 Anxiety disorder, unspecified; Z88.8 Allergy status to other drugs, medicaments and biological substances; K20.90 Esophagitis, unspecified without bleeding; K29.70 Gastritis, unspecified, without bleeding; Z74.01 Bed confinement status; Z20.822 Contact with and (suspected) exposure to COVID-19; L89.612 Pressure ulcer of right heel, stage 2; Z68.22 Body mass index [BMI] 22.0-22.9, adult
CPT/HCPCS: 36415; 43246; 74230; 80053; 82948; 85025; 85610; 85730; 99251; 99284; J2250; J7050; U0002

== ENCOUNTER 2020-09-23 06:13 | Emergency (ER) | payer MEDICARE, MEDICAID ==
[~2020-09-23] VITALS: Ht 170.2 cm; Wt 64.4 kg
== END 2020-09-23 06:40 ==
LOC: ER 06:18
DX: Z43.1 Encounter for attention to gastrostomy (principal); G93.1 Anoxic brain damage, not elsewhere classified; M24.59 Contracture, other specified joint; E11.9 Type 2 diabetes mellitus without complications; F41.9 Anxiety disorder, unspecified; D64.9 Anemia, unspecified; Z87.820 Personal history of traumatic brain injury; Z91.5 Personal history of self-harm
CPT/HCPCS: 99282

== ENCOUNTER 2020-09-23 21:23 | Emergency (ER) | payer MEDICARE, MEDICAID ==
[~2020-09-23] VITALS: Ht 170.2 cm; Wt 64.4 kg
== END 2020-09-23 23:30 ==
LOC: ER 21:55
DX: Z43.1 Encounter for attention to gastrostomy (principal); E11.9 Type 2 diabetes mellitus without complications; F41.9 Anxiety disorder, unspecified; D64.9 Anemia, unspecified; G93.1 Anoxic brain damage, not elsewhere classified; Z87.820 Personal history of traumatic brain injury; Z91.5 Personal history of self-harm

== ENCOUNTER 2020-09-24 11:26 | Emergency (ER) | payer MEDICARE, MEDICAID ==
[~2020-09-24] VITALS: Ht 170.2 cm; Wt 64.4 kg
== END 2020-09-24 12:59 ==
LOC: ER 12:04
DX: Z43.1 Encounter for attention to gastrostomy (principal); E11.9 Type 2 diabetes mellitus without complications; G93.1 Anoxic brain damage, not elsewhere classified; D64.9 Anemia, unspecified; F41.9 Anxiety disorder, unspecified; Z87.820 Personal history of traumatic brain injury; Z91.5 Personal history of self-harm
CPT/HCPCS: 99281